=== PATIENT | female | born 1940 | race Caucasian/White ===

== ENCOUNTER → 2016-12-20 | Outpatient (CLI) | payer MEDICARE, OTHER ==
[~2016-12-20] MED LIST: ALBU17AE23 IH; ASP81TEC PO; BETA1BEA MC; BUDE90AE2 IH; BUTA-234 PO; C250T PO; CEFU250T PO; CETI10TA17 PO; CHOL200035 PO; CLARITIN PO; CLCX200C PO; CYCL5TAB PO; FOLI0.4T2 PO; IBP200T PO; LORA10CA PO; MNTL10T PO; MULT-608 PO; PARO10TA21 PO; PULMICORT; VITA400T9 PO; ZINC50TA49 PO; celebrex PO; paxil PO
--- OUTSIDE RECORDS SUMMARY | 2016-12-20 07:37 | XMS REPORT | Continuity of Care Document ---
Author Author [facility] Organization [facility] Address Unknown Phone Unavailable Care Team Providers Care Assistant Golf Coach Name Role Phone FILIPE CUEVAS MD PCP Insurance Providers Payer Name Policy Number Subscriber Name Relationship Wps Medicare [id number] Rhys Ayon 18 Self / Same As Patient [facility] [id number] Rhys Ayon 18 Self / Same As Patient Advance Directives Directive Response Recorded Date/Time Advance Directives Yes 03/15/16 8:15am Organ Donor Yes 03/15/16 8:15am Resuscitation Status Full Code 03/15/16 8:15am Chief Complaint and Reason for Visit Chief Complaint Chest Pain Reason for Visit Musculoskeletal chest pain [id number] Problems Active Problems Medical Problem Onset Date Status Epistaxis Unknown Acute Musculoskeletal chest pain Unknown Acute UTI (urinary tract infection) Unknown Acute Medications Current Home Medications Medication Dose Units Route Directions Days/Qty Instructions Start Date Montelukast Sodium 10 Mg 10 Mg Oral Bedtime 04/11/10 Aspirin 81 Mg 81 Mg Oral Daily 04/11/10 Multivitamins 1 Tab 1 Tab Oral Daily 04/11/10 Albuterol 17 Gm 2 Puff Inhalation As Needed 01/19/11 Celecoxib 200 Mg 1 Tab Oral Daily 01/19/11 Paroxetine Hcl 10 Mg 10 Mg Oral Daily 01/19/11 Cyclobenzaprine Hcl 5 Mg 1.5 Each Oral As Needed 03/18/13 Butalb/Acetaminophen/Caffeine (Fioricet) 1 Each 1 Each Oral Q6hr Prn 03/18/13 Zinc Amino Acid Chelate 50 Mg 50 Mg Oral 03/18/13 Vitamin E Mixed 400 Unit 400 Unit Oral 03/18/13 Ascorbic Acid 250 Mg 500 Mg Oral Daily 03/18/13 Beta-Carotene 1 Gm 1 Gm Miscell 03/18/13 Folic Acid 0.4 Mg 800 Each Oral Daily 03/18/13 Cholecalciferol (Vitamin D3) 2,000 Unit 2,000 Unit Oral 03/18/13 Cetirizine Hcl (Zyrtec) 10 Mg 10 Mg Oral Daily 03/18/13 Ibuprofen 200 Mg 200 Mg Oral Once 03/18/13 Cefuroxime Axetil 250 Mg 250 Mg Oral Twice A Day for Uti 14 03/15/16 Past Home Medications Medication Directions Ordered Status [Celebrex] , Oral Daily 04/11/10 Discontinued [Paxil] , Oral Daily 04/11/10 Discontinued [Pulmicort] , 04/11/10 Discontinued [Claritin] , Oral Daily 04/11/10 Discontinued Budesonide 90 Mcg Aer.pow.ba, 1 Puff Inhalation Bedtime 01/19/11 Discontinued Loratadine 10 Mg Capsule, 1 Tab Oral Daily 01/19/11 Discontinued Social History Social History Problem Response Recorded Date/Time Alcohol Use Denies Use 03/15/2016 8:15am Recreational Drug Use No 03/15/2016 8:15am Recent Foreign Travel No 03/15/2016 8:13am Recent Infectious Disease Exposure No 03/15/2016 8:13am Smoking Status Never a Smoker 03/15/2016 8:15am Query Response Start Date Stop Date Smoking Status Never a Smoker Hospital Discharge Instructions No hospital discharge instructions. Plan of Care Discharge Date 03/15/16 10:37am Disposition 01 HOME, SELF-CARE Condition at Discharge Stable Instructions/Education Provided Chest Pain (ED) Urinary Tract Infection in Women (DC) Prescriptions See Medication Section Referrals FILIPE CUEVAS MD - Primary Care Physician Functional Status No functional status results. Allergies, Adverse Reactions, Alerts Allergen Type Severity Reaction Status Last Updated clopidogrel bisulfate Adverse Reaction Intermediate SEVERE BLEEDING Active 01/19/11 Sulfa (Sulfonamide Antibiotics) ([id number]) Allergy Unknown Active 04/23 Horse/Equine Containing Products Allergy Unknown Active 07/22/09 Penicillin g Allergy Unknown Active 07/22/09 TB INGRIS TEST Allergy Unknown Active 03/15/16 Immunizations No immunization records. Vital Signs Acute Vital Signs Vital Response Date/Time Temperature (Fahrenheit) 98 degrees F (97.6 - 99.5) 03/15/2016 8:13am Temperature (Calculated Celsius) 36.6696 degrees C (36.4 - 37.5) 03/15/2016 8 :13am Temperature Source Tympanic 03/15/2016 8:13am Pulse Rate (adult) 81 bpm (60 - 90) 03/15/2016 8:13am Respiratory Rate 18 bpm (12 - 24) 03/15/2016 8:13am O2 Sat by Pulse Oximetry 94 % (88 - 100) 03/15/2016 8:13am Blood Pressure 166/73 mm Hg 03/15/2016 8:13am Blood Pressure Mean 104 mm Hg 03/15/2016 8:13am Pain Pain Intensity 6 03/15/2016 8:13am Height (Feet) 5 feet 03/15/2016 8:13am Height (Inches) 4 inches 03/15/2016 8:13am Height (Calculated Centimeters) 162.769541 cm 03/15/2016 8:13am Weight (Pounds) 169 pounds 03/15/2016 8:13am Weight (Calculated Kilograms) 76.681240 kilograms 03/15/2016 8:13am Height 5 ft 4 in Weight 169 lb Body Mass Index 29.0 kg/m^2 Results Laboratory Results Test Name Result Units Flags Reference Collection Date/Time Result Date/ Time Comments White Blood Count 12.6 10^3/uL H 4.3-11.0 03/15/2016 8:30am 03/15/2016 8: 38am Red Blood Count 4.23 10^6/uL L 4.35-5.85 03/15/2016 8:30am 03/15/2016 8: 38am Hemoglobin 13.6 G/DL 11.5-16.0 03/15/2016 8:30am 03/15/2016 8:38am Hematocrit 39 % 35-52 03/15/2016 8:30am 03/15/2016 8:38am Mean Corpuscular Volume 92 FL 80-99 03/15/2016 8:30am 03/15/2016 8: 38am Mean Corpuscular Hemoglobin 32 PG 25-34 03/15/2016 8:30am 03/15/2016 8: 38am Mean Corpuscular Hemoglobin Concent 35 G/DL 32-36 03/15/2016 8: 8:38am Red Cell Distribution Width 11.9 % 10.0-14.5 03/15/2016 8:2015 8:38am Platelet Count 350 10^3/uL 130-400 03/15/2016 8:03/15/2016 8:38am Mean Platelet Volume 9.7 FL 7.4-10.4 03/15/2016 8:03/15/2016 8: 38am Neutrophils (%) (Auto) 67 % 42-75 03/15/2016 8:03/15/2016 8:38am Lymphocytes (%) (Auto) 19 % 12-44 03/15/2016 8:03/15/2016 8:38am Monocytes (%) (Auto) 10 % 0-12 03/15/2016 8:03/15/2016 8:38am Eosinophils (%) (Auto) 4 % 0-10 03/15/2016 8:03/15/2016 8:38am Basophils (%) (Auto) 1 % 0-10 03/15/2016 8:03/15/2016 8:38am Neutrophils # (Auto) 8.5 X 10^3 H 1.8-7.8 03/15/2016 8:03/15/2016 8: 38am Lymphocytes # (Auto) 2.4 X 10^3 1.0-4.0 03/15/2016 8:03/15/2016 8: 38am Monocytes # (Auto) 1.2 X 10^3 H 0.0-1.0 03/15/2016 8:03/15/2016 8: 38am Eosinophils # (Auto) 0.5 10^3/uL H 0.0-0.3 03/15/2016 8:03/15/2016 8 :38am Basophils # (Auto) 0.1 10^3/uL 0.0-0.1 03/15/2016 8:03/15/2016 8: 38am D-Dimer 0.35 UG/ML 0.00-0.49 03/15/2016 8:03/15/2016 9:44am Urine Color YELLOW 03/15/2016 8:55am 03/15/2016 9:25am Urine Clarity SLIGHTLY CLOUDY 03/15/2016 8:55am 03/15/2016 9:25am Urine pH 7 5-9 03/15/2016 8:55am 03/15/2016 9:25am Urine Specific [place] 1.010 * 1.016-1.022 03/15/2016 8:55am 2015 9:25am Urine Protein NEGATIVE NEGATIVE 03/15/2016 8:55am 03/15/2016 9:25am Urine Glucose (UA) NEGATIVE NEGATIVE 03/15/2016 8:55am 03/15/2016 9: 25am Urine RBC (Auto) 1+ * NEGATIVE 03/15/2016 8:55am 03/15/2016 9:25am Urine Ketones NEGATIVE NEGATIVE 03/15/2016 8:55am 03/15/2016 9:25am Urine Nitrite NEGATIVE NEGATIVE 03/15/2016 8:55am 03/15/2016 9:25am Urine Bilirubin NEGATIVE NEGATIVE 03/15/2016 8:55am 03/15/2016 9: 25am Urine Urobilinogen NORMAL MG/DL NORMAL 03/15/2016 8:55am 03/15/2016 9: 25am Urine Leukocyte Esterase 3+ * NEGATIVE 03/15/2016 8:55am 03/15/2016 9: 25am Urine RBC RARE /HPF 03/15/2016 8:55am 03/15/2016 9:25am Urine WBC 5-10 /HPF * 03/15/2016 8:55am 03/15/2016 9:25am Urine Bacteria TRACE /HPF 03/15/2016 8:55am 03/15/2016 9:25am Urine Squamous Epithelial Cells 2-5 /HPF 03/15/2016 8:55am 2015 9:25am Urine Crystals NONE /LPF 03/15/2016 8:55am 03/15/2016 9:25am Urine Casts NONE /LPF 03/15/2016 8:55am 03/15/2016 9:25am Urine Mucus NEGATIVE /LPF 03/15/2016 8:55am 03/15/2016 9:25am Urine Culture Indicated YES 03/15/2016 8:55am 03/15/2016 9:25am Sodium Level 142 MMOL/L 135-145 03/15/2016 8:3003/15/2016 9:02am Potassium Level 4.4 MMOL/L 3.6-5.0 03/15/2016 8:3003/15/2016 9:02am Chloride Level 107 MMOL/L 98-107 03/15/2016 8:3003/15/2016 9:02am Carbon Dioxide Level 24 MMOL/L 21-32 03/15/2016 8:3003/15/2016 9: 02am Anion Gap 11 MMOL/L 5-14 03/15/2016 8:3003/15/2016 9:02am Blood Urea Nitrogen 13 MG/DL 7-18 03/15/2016 8:3003/15/2016 9:02am Creatinine 0.75 MG/DL 0.60-1.30 03/15/2016 8:03/15/2016 9:02am BUN/Creatinine Ratio 17 03/15/2016 8:3003/15/2016 9:02am Estimat Glomerular Filtration Rate > 60 03/15/2016 8:2015 9:02am GFR INTERPRETIVE DATA UNITS FOR ESTIMATED GFR (eGFR): mL/min/1.73 M2 REFERENCE RANGE FOR ESTIMATED GFR (eGFR) eGFR NORMAL eGFR >60 MODERATELY DECREASED eGFR 30-59 SEVERLY DECREASED eGFR 15-29 KIDNEY FAILURE <15 (OR DIALYSIS) Glucose Level 104 MG/DL 70-105 03/15/2016 8:3003/15/2016 9:02am Calcium Level 9.4 MG/DL 8.5-10.1 03/15/2016 8:03/15/2016 9:02am Magnesium Level 2.5 MG/DL H 1.8-2.4 03/15/2016 8:3003/15/2016 9:02am Total Bilirubin 0.5 MG/DL 0.1-1.0 03/15/2016 8:3003/15/2016 9:02am Alkaline Phosphatase 103 U/L 40-136 03/15/2016 8:3003/15/2016 9: 02am Aspartate Amino Transf (AST/SGOT) 21 U/L 5-34 03/15/2016 8:302015 9:02am Alanine Aminotransferase (ALT/SGPT) 19 U/L 0-55 03/15/2016 8:3003/15 9:02am Troponin I < 0.30 NG/ML <0.30 03/15/2016 8:30am 03/15/2016 9:07am B-Type Natriuretic Peptide < 10.0 PG/ML <100.0 03/15/2016 8:30am 2015 9:11am Total Protein 7.0 G/DL 6.4-8.2 03/15/2016 8:30am 03/15/2016 9:02am Albumin 4.4 G/DL 3.2-4.5 03/15/2016 8:30am 03/15/2016 9:02am Lipase 39 U/L 8-78 03/15/2016 8:30am 03/15/2016 9:02am Procedures Procedure Status Date Provider(s) Tracing only of electrocardiogram Active 03/15/16 DARRELL ASCENCIO DO Encounters Encounter Location Arrival/Admit Date Discharge/Depart Date Attending Provider Departed Emergency Room [facility] 03/15/16 8:04am 03/15 10:37am DARRELL ASCENCIO DO Recent Diagnosis
--- NOTE | 2016-12-22 08:27 | ECHOCARDIOGRAPHY REPORT ---
PROCEDURE PHYSICIAN: BASSEM ONEAL DATE OF PROCEDURE: 12/20/2016 TWO DIMENSIONAL ECHOCARDIOGRAM REPORT PRIMARY PHYSICIAN: Dr. Rosenberg OTHER PHYSICIAN: REFERRING PHYSICIAN: ORDERING PHYSICIAN: Dr. Oneal INDICATION FOR THE PROCEDURE: Shortness of breath. MEASUREMENTS DERIVED VALUES LV DIAMETER (LAX) NORMALS NORMALS Diastolic 4.4 (3.6-5.2) Eject. Fract. (60%+/-6%) Systolic (2.3-3.9) Diastolic Vol. % Shortening (0.22-0.42) Systolic Vol. Aortic Root 2.6 IVS THICKNESS Diastolic 1.1 (0.6-1.1) LVPW THICKNESS Diastolic 1.1 (0.6-1.1) LA DIAMETER Systolic 3.4 (2.1-3.7) DESCRIPTION: Two-dimensional echocardiography shows normal global left ventricular systolic function with normal regional wall motion. Aortic, mitral and tricuspid valve leaflets show good leaflet excursion. There is no significant pericardial effusion. There is mild mitral annular calcification. Doppler imaging indicates trivial tricuspid regurgitation. Pulmonary artery systolic pressure is estimated to be approximately 30 mmHg. There is no Doppler evidence of significant valvular stenosis. Mitral inflow is consistent with grade I diastolic dysfunction of the left ventricle. There is no evidence of significant intracardiac shunt on this transthoracic echocardiographic study. Inferior vena cava does not appear to be significantly dilated and does seem to have inspiratory collapse. CONCLUSIONS: 1. Normal global left ventricular systolic function with an ejection fraction of approximately 60%. 2. Mild mitral annular calcification without evidence of significant valvular stenosis. 3. Trivial tricuspid regurgitation. 4. Pulmonary artery systolic pressure is estimated to be approximately 30 mmHg. Job ID: [id number] Dictated Date: 12/21/2016 17:39:51 Poster Date: 12/22/2016 08:23:48 / jake
== END ==
LOC: CARD 07:33
PROVIDERS: ATTEND Internal Medicine Cardiovascular Disease
DX: I70.213 Atherosclerosis of native arteries of extremities with intermittent claudication, bilateral legs (principal); J43.8 Other emphysema; R06.02 Shortness of breath
CPT/HCPCS: 93306; 93923

== ENCOUNTER → 2016-12-22 | Outpatient (CLI) | payer MEDICARE, OTHER ==
[~2016-12-22] VITALS: Ht 160 cm; Wt 79.4 kg
[~2016-12-22] MED LIST changes: +CATHETER FLUSH 10 ML SYR IV PRN; +REGADENOSON 0.4 MG/5 ML SYR (LEXISCAN) IV ONE
--- OUTSIDE RECORDS SUMMARY | 2016-12-22 07:34 | XMS REPORT | Continuity of Care Document ---
Author Author [facility] Organization [facility] Address Unknown Phone Unavailable Care Team Providers Care Battery Container Finishing Hand Name Role Phone FILIPE CUEVAS MD PCP Insurance Providers Payer Name Policy Number Subscriber Name Relationship Wps Medicare [id number] Rhys Ayon 18 Self / Same As Patient [facility] [id number] Rhys Ayon 18 Self / Same As Patient Advance Directives Directive Response Recorded Date/Time Advance Directives Yes 03/15/16 8:15am Organ Donor Yes 03/15/16 8:15am Resuscitation Status Full Code 03/15/16 8:15am Chief Complaint and Reason for Visit Chief Complaint Chest Pain Reason for Visit Musculoskeletal chest pain [id number] Problems Active Problems Medical Problem Onset Date [...] SEVERE BLEEDING Active 01/19/11 Sulfa (Sulfonamide Antibiotics) ([id number]) Allergy Unknown Active 04/23 Horse/Equine Containing Products [...] 4 inches 03/15/2016 8:13am Height (Calculated Centimeters) 162.667844 cm 03/15/2016 8:13am Weight (Pounds) 169 pounds 03/15/2016 8:13am Weight (Calculated Kilograms) 76.220181 kilograms 03/15/2016 8:13am Height 5 ft 4 [...] 5-9 03/15/2016 8:55am 03/15/2016 9:25am Urine Specific [place] 1.010 * 1.016-1.022 03/15/2016 8:55am 2015 9:25am [...] Date Attending Provider Departed Emergency Room [facility] 03/15/16 8:04am 03/15 10:37am DARRELL ASCENCIO DO Recent Diagnosis
[2016-12-22 08:57] VITALS: BP 152/80
--- NOTE | 2016-12-22 12:32 | STRESS TEST ---
PROCEDURE PHYSICIAN: BASSEM ONEAL RESTING AND POST REGADENOSON TECHNETIUM 99M TETROFOSMIN SPECT CT IMAGING DATE OF PROCEDURE: 12/22/2016 ORDERING PHYSICIAN: Dr. Oneal CLINICAL DIAGNOSIS: Shortness of breath, leg claudication. Baseline images were carried out after injection of 10.23 mCi of technetium 99m tetrofosmin. This was followed by 0.4 mg of regadenoson and 30.7 mCi technetium 99m tetrofosmin for stress imaging. The electrocardiogram showed sinus rhythm at baseline and it did not change significantly with the regadenoson infusion. Review of images at rest and following stress, does not indicate any significant perfusion defects consistent with any significant myocardial ischemia or infarction. Gated images show normal global left ventricular function with normal regional wall motion. Left ventricular ejection fraction is calculated to be 67%. Left end-diastolic volume is 31 mL. TID is absent (0.99). CONCLUSION: 1. No evidence of any significant myocardial ischemia or infarction on this study, 2. Normal regional wall motion. 3. Normal global left ventricular systolic function with a calculated ejection fraction of 67%. 4. Normal left ventricular cavity size. Job ID: [id number] Dictated Date: 12/22/2016 11:16:15 Petrol Tanker Driver Date: 12/22/2016 12:26:29 / braxton
== END ==
LOC: CARD 07:30
PROVIDERS: ATTEND Internal Medicine Cardiovascular Disease
DX: J43.8 Other emphysema (principal); R26.89 Other abnormalities of gait and mobility
CPT/HCPCS: 78452; 93017

== ENCOUNTER → 2017-07-24 | Outpatient (CLI) | payer MEDICARE ==
[~2017-07-24] MED LIST changes: -CATHETER FLUSH 10 ML SYR IV PRN; -REGADENOSON 0.4 MG/5 ML SYR (LEXISCAN) IV ONE
--- NOTE | 2017-07-24 12:37 | Diagnostic Imaging Report ---
PROCEDURE: MRI lumbar spine. TECHNIQUE: Multiplanar, multisequence MRI of the lumbar spine was performed without contrast. INDICATION: Chronic back pain. FINDINGS: There is right convexity scoliosis of the lumbar spine. The alignment of the posterior spinal line is satisfactory. The vertebral body heights are preserved. There is disc desiccation at multiple levels with significant disc height loss noted along the left side aspect of the discs in the mid lumbar spine along the concavity of the scoliosis. The scoliotic curvature is centered around L2/L3 level. The cauda equina and conus medullaris appear grossly unremarkable. Mild degenerative signal and endplate edema are noted, particularly prominent at L3/L4 level. T12/L1: No disc herniation. No spinal canal or foraminal stenosis. L1/L2: There is mild diffuse disc bulge and mild facet hypertrophy noted. No spinal canal or foraminal stenosis. L2/L3: There is a diffuse disc bulge asymmetric to the left. There is mild facet hypertrophy. No central canal stenosis. There is mild left lateral recess stenosis. No lateral recess stenosis on the right side. The foramina demonstrate mild to moderate stenosis on the left and no significant stenosis on the right side. L3/L4: There is a diffuse disc bulge asymmetric to the left. Bilateral moderate to severe facet arthropathy is seen. There is central canal stenosis of moderate to severe degree reducing the AP dimension of the canal to 6.6 mm. There is lateral recess stenosis of moderate to severe degree on the left and mild degree on the right side. The foramina demonstrate moderate to severe stenosis on the left and mild stenosis on the right side. L4/L5: There is moderate to severe spinal canal stenosis reducing the AP dimension of the canal to 5.4 mm related to a diffuse disc bulge and bilateral severe facet arthropathy. There is also bilateral moderate to severe lateral recess stenosis. The foramina demonstrate mild to moderate stenosis on the left and severe stenosis on the right side. L5/S1: There is diffuse disc bulge and bilateral moderate to severe facet arthropathy. No central canal stenosis. There is lateral recess stenosis, mild on the left and moderate to severe on the right side encroaching upon the descending right S1 nerve roots. The foramina demonstrate no stenosis on the left and moderate stenosis on the right side. IMPRESSION: Prominent right convexity scoliosis of the lumbar spine with associated mid to lower disc and facet degenerative changes. There is prominent spinal canal stenosis at L3/L4 and L4/L5 levels. There is also multilevel foraminal stenosis. Dictated by: Dictated on workstation # [id number]
== END ==
LOC: RAD 09:08
PROVIDERS: ATTEND Family Medicine
DX: M41.9 Scoliosis, unspecified (principal); M48.061 Spinal stenosis, lumbar region without neurogenic claudication
CPT/HCPCS: 72148

== ENCOUNTER → 2018-04-30 | Outpatient (CLI) | payer MEDICARE, BC | LOC: RAD 09:37 | PROVIDERS: ATTEND Orthopaedic Surgery Orthopaedic Surgery of the Spine | DX: M54.2 Cervicalgia (principal); M54.6 Pain in thoracic spine; Z53.8 Procedure and treatment not carried out for other reasons ==

== ENCOUNTER → 2018-05-17 | Outpatient (CLI) | payer MEDICARE, BC ==
--- NOTE | 2018-05-17 13:26 | Diagnostic Imaging Report ---
EXAMINATION: DEXA study. INDICATION: Post menopausal Correlation study: 12/23/2010 FINDINGS: Bone mineral density of the lumbar spine, L2-L4 is 1.064 g/cm2 with a T-score of 81.1. This is in the OSTEOPENIA range. Bone mineral density of the left femur is 0.951 g/cm2 with a T-score of -0.4. This is in the NORMAL range. Bone mineral density of the right femur is 0.830 g/cm2 with a T-score of -1.4. This is in the OSTEOPENIA range. Total mean density of the hips is 0.891 g/cm2 with a T-score of -0.9. IMPRESSION: This scan is considered OSTEOPENIA according to the World Health Organization guidelines. The overall density appears slightly diminished from approximately 6% from prior study. Dictated by: Dictated on workstation # [id number]
== END ==
LOC: RAD 10:01
PROVIDERS: ATTEND Physician Assistant
DX: M81.0 Age-related osteoporosis without current pathological fracture (principal)
CPT/HCPCS: 77080

== ENCOUNTER → 2018-06-26 | Outpatient (CLI) | payer MEDICARE, BC ==
--- NOTE | 2018-06-26 18:24 | Diagnostic Imaging Report ---
INDICATION: Elevated PTH. TECHNIQUE: Patient was administered 19.9 mCi technetium 99m sestamibi and imaging over the neck and upper chest was performed at 20 minutes and [address] was also performed. FINDINGS: Physiologic activity within the salivary glands is seen. There is normal uptake of activity by both lobes of the thyroid gland on the early images. There appears to be washout of activity from the thyroid on the delayed images. No focus of tracer accumulation is seen at the thyroid bed in the expected location of the parathyroid glands. No definite focus in the upper chest is seen to suggest activity within an ectopic parathyroid identified. IMPRESSION: Unremarkable parathyroid scan with SPECT CT. There are no findings to suggest parathyroid adenoma. Dictated by: Dictated on workstation # [id number]
== END ==
LOC: CARD 12:14
PROVIDERS: ATTEND Family Medicine
DX: R94.6 Abnormal results of thyroid function studies (principal)
CPT/HCPCS: 78072

== ENCOUNTER → 2018-08-08 | Outpatient (CLI) | payer MEDICARE, BC ==
--- NOTE | 2018-08-08 12:17 | Diagnostic Imaging Report ---
PROCEDURE: US right lower extremity venous. TECHNIQUE: Multiple real-time grayscale images were obtained over the right lower extremity in various projections. Additional duplex Doppler and color Doppler images were also obtained. INDICATION: Right leg pain and swelling. COMPARISON: None. TECHNIQUE: The right lower extremity deep venous system was interrogated from the common femoral vein through the popliteal vein. These images were assessed for grayscale appearance, color and spectral Doppler blood flow, compression, and augmentation. FINDINGS: There is no evidence of intraluminal filling defect. Normal compression and augmentation is noted throughout. Soft tissues are unremarkable. IMPRESSION: 1. No sonographic evidence of deep venous thrombosis in the right lower extremity. Dictated by: Dictated on workstation # [id number]
== END ==
LOC: RAD 11:18
PROVIDERS: ATTEND Nurse Practitioner Family
DX: M79.89 Other specified soft tissue disorders (principal); I10 Essential (primary) hypertension; E78.5 Hyperlipidemia, unspecified; G47.39 Other sleep apnea

== ENCOUNTER 2018-11-02 07:35 | Emergency (ER) | payer MEDICARE, BC ==
[~2018-11-02] VITALS: Ht 157.5 cm; Wt 74.8 kg
--- NOTE | 2018-11-02 08:04 | ED Neurological Problem ---
General Stated Complaint: FACIAL DROOPING/NUMBNESS Source: patient, family Exam Limitations: no limitations History of Present Illness Date Seen by Provider: Nov 02, 2018 Time Seen by Provider: 07:59 Initial Comments This 78-year-old white female presents with right-sided facial weakness that began last night. When the patient went to bed she noted numbness to her lips as if she had been to the dentist. Throughout the night when the patient attempted to drink water she dribbled out the right side of her mouth. This morning the patient noted right sided facial weakness with inability to fully close her eye or to smile fully. She denies associated numbness or weakness in her right arm or leg. The patient has had no associated fever, chills, headache, blurred vision, difficulty swallowing, cough, shortness of breath, palpitations or chest pain, associated nausea vomiting or diarrhea. Past medical history includes a previous questionable TIA to the left arm and leg which lasted 10-15 minutes. The patient has noted a painful right ear for the last several days. When examined by her doctor several days ago no findings were identified. My NIHSS score at the bedside identified decreased sensation and motor to the right side of the face but no other significant findings (7:45 am). Allergies and Home Medications Allergies Coded Allergies: Horse/Equine Containing Products (Verified Allergy, Unknown, 07/22/09) Sulfa (Sulfonamide Antibiotics) (Verified Allergy, Unknown, 07/22/09) penicillin G (Verified Allergy, Unknown, 07/22/09) clopidogrel bisulfate (Unverified Adverse Reaction, Intermediate, SEVERE BLEEDING, 01/19/11) Uncoded Allergies: TB INGRIS TEST (Allergy, Unknown, 03/15/16) Home Medications Albuterol 17 Gm Aerosol, 2 PUFF IH PRN, (Reported) Ascorbic Acid 250 Mg Tab, 500 MG PO DAILY, (Reported) Aspirin 81 Mg Tabec, 81 MG PO DAILY, (Reported) Butalb/Acetaminophen/Caffeine 1 Each Tablet, 1 EACH PO Q6HR PRN, (Reported) Cefuroxime Axetil 250 Mg Tablet, 250 MG PO BID Prescribed by: DARRELL ASCENCIO on 03/15/16 1021 Celecoxib 200 Mg Capsule, 1 TAB PO DAILY, (Reported) Cetirizine Hcl 10 Mg Tablet, 10 MG PO DAILY, (Reported) Cyclobenzaprine Hcl 5 Mg Tablet, 1.5 EACH PO PRN, (Reported) Folic Acid 0.4 Mg Tablet, 800 EACH PO DAILY, (Reported) Ibuprofen 200 Mg Tab, 200 MG PO ONCE, (Reported) Montelukast Sodium 10 Mg Tab, 10 MG PO HS, (Reported) Multivitamins 1 Tab Tablet, 1 TAB PO DAILY, (Reported) Paroxetine Hcl 10 Mg Tablet, 10 MG PO DAILY, (Reported) Patient Home Medication List Home Medication List Reviewed: Yes Review of Systems Review of Systems Constitutional: No chills, No dizziness, No fever, No weakness Eyes: Denies Blurred Vision Ears, Nose, Mouth, Throat: ear pain (right ear) Respiratory: No cough, No short of breath Gastrointestinal: No abdominal pain, No nausea, No vomiting Genitourinary: No dysuria, No frequency : No Musculoskeletal: No back pain; muscle weakness (to the right side of the face) Skin: other (there is erythema and swelling noted to the right external ear) Psychiatric/Neurological: No Symptoms Reported Endocrine: No Symptoms Reported Hematologic/Lymphatic: No Symptoms Reported Past Ukvejhy-Rtlrlo-Vcopmo Hx Past Med/Social Hx: Reviewed Nursing Past Med/Soc Hx Patient Social History Recent Foreign Travel: No Contact w/Someone Who Travel: No Past Medical History COPD Hypertension Reproductive Disorders: Yes (HX.FIBROIDS-HYSTERECTOMY) Family Medical History No Pertinent Family Hx Physical Exam Vital Signs Vital Signs - First Documented 11/02/18 07:38 Temp 99.9 Pulse 86 Resp 16 B/P (MAP) 173/98 (123) Pulse Ox 95 O2 Delivery Room Air Capillary Refill : Height, Weight, BMI Height: 5'3.00" Weight: 175lbs. 0.0oz. 79.549500tm; 31.0 BMI Method:Stated General Appearance: WD/WN, no apparent distress HEENT: No photophobia; other (right-sided facial weakness and numbness. There is erythema and swelling to the right external ear. The right TM was not fully visualized but appeared to be normal.) Neck: non-tender, full range of motion, supple Respiratory: lungs clear, normal breath sounds Cardiovascular: regular rate, rhythm Gastrointestinal: normal bowel sounds, non tender, soft Back: normal inspection Extremities: normal range of motion, non-tender, normal inspection, no pedal edema Neurologic/Psychiatric: other (right sided facial weakness and numbness.) Skin: other (erythema to the right external ear.) Stroke Onset of Symptoms Date of Onset of Symptoms: Nov 01, 2018 Time of Symptom Onset: 21:30 Onset of Symptoms: Yes NIH Stroke Scale Assessment Select: Initial Level of Consciousness: 0=Alert (0), Level of Consciousness- Questions: 0=Answers both month/age (0), LOC Commands: 0=Performs both tasks (0) , Gaze: Normal (0), Visual Varela: 0=No visual loss (0), Facial Movement ( Facial Paresis): 2=Partial paralysis (2), Motor Function-Arms Right: 0=No drift (0), Motor Function-Arms Left: 0=No drift (0), Motor Function-Legs Right: 0=No drift (0), Motor Function-Legs Left: 0=No drift (0), Limb Ataxia: 0=Absent (0), Sensory: 1=Mild to Moderate loss (1), Best Language: 1=Mild to moderat aphasia ( 1), Dysarthria: 0=Normal (0), Extinction & Inattention: 0=No abnormality (0), Total: 4 IV - TPa Received IV - TPa Procedure Performed?: No Progress/Results/Core Measures Results/Orders Lab Results Laboratory Tests Test 11/02/18 07:45 11/02/18 07:56 11/02/18 08:50 Range/Units White Blood Count 8.5 4.3-11.0 10^3/uL Red Blood Count 3.98 L 4.35-5.85 10^6/uL Hemoglobin 12.8 11.5-16.0 G/DL Hematocrit 37 35-52 % Mean Corpuscular Volume 94 80-99 FL Mean Corpuscular Hemoglobin 32 25-34 PG Mean Corpuscular Hemoglobin Concent 34 32-36 G/DL Red Cell Distribution Width 12.2 10.0-14.5 % Platelet Count 398 130-400 10^3/uL Mean Platelet Volume 9.4 7.4-10.4 FL Neutrophils (%) (Auto) 46 42-75 % Lymphocytes (%) (Auto) 37 12-44 % Monocytes (%) (Auto) 12 0-12 % Eosinophils (%) (Auto) 4 0-10 % Basophils (%) (Auto) 1 0-10 % Neutrophils # (Auto) 3.9 1.8-7.8 X 10^3 Lymphocytes # (Auto) 3.2 1.0-4.0 X 10^3 Monocytes # (Auto) 1.0 0.0-1.0 X 10^3 Eosinophils # (Auto) 0.3 0.0-0.3 10^3/uL Basophils # (Auto) 0.0 0.0-0.1 10^3/uL Prothrombin Time 12.8 12.2-14.7 SEC INR Comment 1.0 0.8-1.4 Activated Partial Thromboplast Time 37 H 24-35 SEC D-Dimer 0.67 H 0.00-0.49 UG/ML Sodium Level 139 135-145 MMOL/L Potassium Level 3.8 3.6-5.0 MMOL/L Chloride Level 103 98-107 MMOL/L Carbon Dioxide Level 24 21-32 MMOL/L Anion Gap 12 5-14 MMOL/L Blood Urea Nitrogen 10 7-18 MG/DL Creatinine 0.72 0.60-1.30 MG/DL Estimat Glomerular Filtration Rate > 60 BUN/Creatinine Ratio 14 Glucose Level 102 70-105 MG/DL Calcium Level 9.7 8.5-10.1 MG/DL Corrected Calcium 9.4 8.5-10.1 MG/DL Total Bilirubin 0.5 0.1-1.0 MG/DL Aspartate Amino Transf (AST/SGOT) 27 5-34 U/L Alanine Aminotransferase (ALT/SGPT) 23 0-55 U/L Alkaline Phosphatase 105 40-136 U/L Troponin I < 0.028 <0.028 NG/ML Total Protein 7.5 6.4-8.2 GM/DL Albumin 4.4 3.2-4.5 GM/DL Glucometer 106 70-110 MG/DL Urine Color YELLOW Urine Clarity CLEAR Urine pH 7 5-9 Urine Specific Snover 1.010 L 1.016-1.022 Urine Protein NEGATIVE NEGATIVE Urine Glucose (UA) NEGATIVE NEGATIVE Urine Ketones NEGATIVE NEGATIVE Urine Nitrite NEGATIVE NEGATIVE Urine Bilirubin NEGATIVE NEGATIVE Urine Urobilinogen NORMAL NORMAL MG/DL Urine Leukocyte Esterase 1+ H NEGATIVE Urine RBC (Auto) 2+ H NEGATIVE Urine RBC 2-5 H /HPF Urine WBC RARE /HPF Urine Squamous Epithelial Cells 0-2 /HPF Urine Crystals NONE /LPF Urine Bacteria NEGATIVE /HPF Urine Casts NONE /LPF Urine Mucus NEGATIVE /LPF Urine Culture Indicated NO My Orders Orders - ROSLYN HUNTER MD Cbc With Automated Diff (11/02/18 07:55) Protime With Inr (11/02/18 07:55) Partial Thromboplastin Time (11/02/18 07:55) Comprehensive Metabolic Panel (11/02/18 07:55) Fibrin Degradation Products (11/02/18 07:55) Troponin I (11/02/18 07:55) Ua Culture If Indicated (11/02/18 07:55) Chest 1 View, Ap/Pa Only (11/02/18 07:55) Ekg Tracing (11/02/18 07:55) Nothing By Mouth (11/02/18 Lunch) Accucheck Stat ONCE (11/02/18 07:55) Saline Lock/Iv-Start (11/02/18 07:55) Saline Lock/Iv-Start (11/02/18 07:55) Vital Signs Stroke Patient Q15M (11/02/18 07:55) Ct Head Wo-R/O Stroke (11/02/18 07:55) O2 (11/02/18 07:55) Intake & Output 06,14,22 (11/02/18 07:55) Monitor-Rhythm Ecg Trace Only (11/02/18 07:55) Dysphagia Screening Tool (11/02/18 07:55) Lipid Panel (11/03/18 06:00) Vital Signs/I&O 11/02/18 07:38 Temp 99.9 Pulse 86 Resp 16 B/P (MAP) 173/98 (123) Pulse Ox 95 O2 Delivery Room Air Progress Progress Note : Time: 09:27 Progress Note The patient's laboratory and radiographic evaluation were essentially unremarkable. 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 Patient will receive valacyclovir thousand milligrams every 12 hours twice daily for 7 days. Most recent recommendations appear to be steroids as well. I prescribed 40 mg daily of prednisone for a week. I'm going to have the patient return to the emergency department tomorrow so that I can simply make certain that she has not progressed and is doing well. I asked that the patient use artificial tears and her daughter, the nurse, we' ll patch the eye at night. I asked that they follow-up with Dr. Rosenberg next week. They were invited to return to emergency department if any further problems or questions. 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 Decision time for Depature: 09:30 Referrals: FILIPE ROSENBERG MD (PCP/Family) Primary Care Physician Patient Instructions: Yen (DC) Add. Discharge Instructions: Return for recheck in the emergency department tomorrow with me. Antiviral and steroid medications as prescribed. Return if any problems or questions. Follow -up with Dr. Rosenberg early next week. ROSLYN HUNTER MD Nov 02, 2018 08:04
[2018-11-02 08:05] LABS: BASOPHILS % (AUTO) 1 % (0-10); EOSINOPHILS # (AUTO) 0.3 10^3/uL (0.0-0.3); EOSINOPHILS % (AUTO) 4 % (0-10); HEMATOCRIT 37 % (35-52); HEMOGLOBIN 12.8 G/DL (11.5-16.0); LYMPHOCYTES # (AUTO) 3.2 X 10^3 (1.0-4.0); LYMPHOCYTES % (AUTO) 37 % (12-44); MEAN CORPUSCULAR HEMOGLOBIN 32 PG (25-34); MEAN CORPUSCULAR HGB CONC 34 G/DL (32-36); MEAN CORPUSCULAR VOLUME 94 FL (80-99); MEAN PLATELET VOLUME 9.4 FL (7.4-10.4); MONOCYTES % (AUTO) 12 % (0-12); NEUTROPHILS # (AUTO) 3.9 X 10^3 (1.8-7.8); NEUTROPHILS % (AUTO) 46 % (42-75); PLATELET COUNT 398 10^3/uL (130-400); RED BLOOD COUNT 3.98 10^6/uL (4.35-5.85); RED CELL DISTRIBUTION WIDTH 12.2 % (10.0-14.5); WHITE BLOOD COUNT 8.5 10^3/uL (4.3-11.0)
--- NOTE | 2018-11-02 08:18 | Diagnostic Imaging Report ---
INDICATION: Right-sided facial weakness and droop Noncontrast brain CT performed and compared to 01/19/2011 There are mild diffuse atrophic changes. There are mild low-density changes in the deep white matter compatible with chronic ischemic change. There is no acute hemorrhage or mass effect or midline shift. No overt acute parenchymal abnormality in the brain is seen. Ventricles are normal in size and position. Calvarial windows appear unremarkable. There is partial opacification of the right sphenoid sinus. IMPRESSION: Mild atrophic changes and chronic changes in deep white matter. No acute hemorrhage or mass effect or acute intracranial finding. Consider MRI if symptoms persist. There is opacification of the right sphenoid sinus incidentally noted. Dictated by: Dictated on workstation # [id number]
--- NOTE | 2018-11-02 08:19 | Diagnostic Imaging Report ---
INDICATION: Stroke Frontal chest obtained at 8:07 hours am, and compared with 03/15/2016. Heart is borderline enlarged. The mediastinal silhouette was unremarkable. The lungs show no focal infiltrate. There is no pneumothorax or pleural fluid. IMPRESSION: Borderline cardiomegaly. No acute process in the chest. Dictated by: Dictated on workstation # [id number]
[2018-11-02 08:24] LABS: FIBRIN DEGRADATION PRODUCTS 0.67 UG/ML (0.00-0.49); PROTHROMBIN TIME PATIENT 12.8 SEC (12.2-14.7)
[2018-11-02 08:28] LABS: ALANINE AMINOTRANSFERASE 23 U/L (0-55); ALBUMIN 4.4 GM/DL (3.2-4.5); ALKALINE PHOSPHATASE 105 U/L (40-136); BILIRUBIN,TOTAL 0.5 MG/DL (0.1-1.0); BUN/CREATININE RATIO 14; CALCIUM 9.7 MG/DL (8.5-10.1); CARBON DIOXIDE 24 MMOL/L (21-32); CHLORIDE 103 MMOL/L (98-107); CREATININE SERUM 0.72 MG/DL (0.60-1.30); GFR ESTIMATED > 60; GLUCOSE 102 MG/DL (70-105); POTASSIUM 3.8 MMOL/L (3.6-5.0); SODIUM 139 MMOL/L (135-145); TOTAL PROTEIN 7.5 GM/DL (6.4-8.2)
[2018-11-02 09:14] LABS: BILIRUBIN,URINE NEGATIVE (NEGATIVE); CLARITY,URINE CLEAR; COLOR,URINE YELLOW; GLUCOSE, URINE (UA) NEGATIVE (NEGATIVE); KETONES,URINE NEGATIVE (NEGATIVE); LEUKOCYTE ESTERASE ,URINE 1+ (NEGATIVE); NITRITE,URINE NEGATIVE (NEGATIVE); PH,URINE 7 (5-9); PROTEIN,URINE NEGATIVE (NEGATIVE); UROBILINOGEN,URINE NORMAL (NORMAL)
[2018-11-02 09:24] LABS: BACTERIA,URINE NEGATIVE /HPF; SQUAMOUS EPITHELIAL CELL,UR 0-2 /HPF; WBC,URINE RARE /HPF
[2018-11-02 09:50] VITALS: BP 154/78
== END 2018-11-02 09:50 | disposition home or self-care (01) ==
LOC: EDUNIT# 07:35 → ER 07:36
DX: G51.0 Bell's palsy (principal); B02.9 Zoster without complications; J44.9 Chronic obstructive pulmonary disease, unspecified; I10 Essential (primary) hypertension; Z90.710 Acquired absence of both cervix and uterus; Z88.2 Allergy status to sulfonamides; Z88.0 Allergy status to penicillin; Z88.8 Allergy status to other drugs, medicaments and biological substances; Z79.82 Long term (current) use of aspirin; Z79.51 Long term (current) use of inhaled steroids
CPT/HCPCS: 36415; 70450; 71045; 80053; 81000; 82962; 84484; 85025; 85379; 85610; 85730; 93041

== ENCOUNTER 2018-11-03 10:32 | Emergency (ER) | payer MEDICARE, BC | END 2018-11-03 11:08 | disposition home or self-care (01) | LOC: ER 10:32 ==

== ENCOUNTER → 2018-11-26 | Outpatient (CLI) | payer MEDICARE, BC ==
--- NOTE | 2018-11-26 12:42 | Diagnostic Imaging Report ---
Indication: Routine screening. Comparison is made with prior mammogram from 08/18/2017 and 04/28/2015. 2-D and 3-D bilateral screening mammography was performed with CAD. Scattered fibroglandular densities are identified bilaterally. The parenchymal pattern is stable. No dominant mass or malignant-appearing microcalcifications are seen. The axilla are unremarkable. Impression: BI-RADS category 1 No mammographic features suspicious for malignancy are identified. ACR BI-RADS Category 1: Negative. Result letter will be mailed to the patient. Note: At least 10% of breast cancer is not imaged by mammography. Dictated by: Dictated on workstation # [id number]
== END ==
LOC: RAD 08:31
PROVIDERS: ATTEND Nurse Practitioner Family
DX: Z12.31 Encounter for screening mammogram for malignant neoplasm of breast (principal)
CPT/HCPCS: 77067

== ENCOUNTER 2018-11-30 18:59 | Emergency (ER) | payer MEDICARE, BC ==
[~2018-11-30] VITALS: Ht 160 cm; Wt 76.7 kg
--- OUTSIDE RECORDS SUMMARY | 2018-11-30 19:10 | XMS REPORT | CCD ---
Author Author [facility] Address [address] [place] [address] Phone Care Team Providers Care Lighting Equipment Operator Name Role Phone PP Unavailable CCM Unavailable Summary Purpose Interface Exchange Insurance Providers Payer name Policy type / Coverage type Covered constitution party ID Effective Begin Date Effective End Date WPS Medicare Part B Medicare Part B [id number] Unknown [facility] Medicare Part B [id number] Unknown Family history Daughter Diagnosis Age At Onset Factor V Unknown Father Diagnosis Age At Onset Stroke Unknown Sister Diagnosis Age At Onset No Family Disease Entered N/A Runs in the family Diagnosis Age At Onset Diabetes Unknown Mother Diagnosis Age At Onset No Family Disease Entered N/A granddaughter Diagnosis Age At Onset Bleeding disorders Unknown Social History Social History Element Codes Description Effective Dates Employment Unknown 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 Unknown Has never used illegal drugs 06/26/2011 Allergies, Adverse Reactions, Alerts Substance Reaction Codes Entered Date Inactivated Date Status Seasonal Unknown 06/27/2011 No Inactive Date Active Erythromycin RxNorm: 4053 01/02/2017 No Inactive Date Active * NO KNOWN FOOD ALLERGIES Unknown 06/27/2011 No Inactive Date Active clindamycin HCl diarrhea RxNorm: 2582 12/05/2013 No Inactive Date Active HORSE/EQUINE PRODUCT DERIVATIVES Unknown 01/02/2017 No Inactive Date Active PENICILLINS Unknown 06/26/2011 No Inactive Date Active [id number]-FRD-[id number] REDUCTASE INHIBITORS Unknown 06/26/2011 No Inactive Date Active SULFA (SULFONAMIDES) Unknown 01/02/2017 No Inactive Date Active Past Medical History Illness Codes Condition Status Onset Date Resolved Date Postherpetic trigeminal neuralgia ICD-9: 053.12 ICD-10: B02.22 Active 11/07/2018 Unknown Chronic obstructive pulmonary disease with (acute) exacerbation ICD-9: 491.21 ICD-10: J44.1 Active 11/07/2018 Unknown Chronic frontal sinusitis ICD-9: 478.19 ICD-10: J32.1 Active 09/04/2018 Unknown Essential (primary) hypertension ICD-9: 401.9 ICD-10: I10 Active 03/23/2016 Unknown Mild intermittent asthma with (acute) exacerbation ICD-9: 493.90 ICD-10: J45.21 Active 09/24/2015 Unknown Other retention of urine ICD-9: 788.29 ICD-10: R33.8 Active 07/10/2018 Unknown Encounter for immunization ICD-9: V04.81 ICD-10: Z23 Active 07/12/2016 Unknown Low back pain ICD-9: 724.2 ICD-10: M54.5 Active 02/14/2017 Unknown Personal history of other diseases of the musculoskeletal system and connective tissue ICD-9: V13.59 ICD-10: Z87.39 Active 06/19/2018 Unknown Primary hyperparathyroidism ICD-9: 252.01 ICD-10: E21.0 Active 06/19/2018 Unknown Sciatica, right side ICD-9: 724.3 ICD-10: M54.31 Active 02/14/2017 Unknown Dysuria ICD-9: 788.1 ICD-10: R30.0 Active 06/15/2018 Unknown Encounter for general adult medical examination with abnormal findings ICD-9: V70.0 ICD-10: Z00.01 Active 01/08/2018 Unknown Mild intermittent asthma, uncomplicated ICD-9: 493.20 ICD-10: J45.20 Active 03/23/2016 Unknown Mixed hyperlipidemia ICD-9: 272.4 ICD-10: E78.2 Active 01/08/2018 Unknown Shortness of breath ICD-9: 786.05 ICD-10: R06.02 Active 01/08/2018 Unknown Cough ICD-9: 786.2 ICD-10: R05 Active 01/30/2017 Unknown Other allergic rhinitis ICD-9: 477.8 ICD-10: J30.89 Active 06/30/2017 Unknown Hypothryroidism Unknown Active 06/30/2017 Unknown Dizziness and giddiness ICD-9: 780.4 ICD-10: R42 Active 05/08/2017 Unknown Sciatica Unknown Active 02/14/2017 Unknown Acute recurrent maxillary sinusitis ICD-9: 461.0 ICD-10: J01.01 Active 08/23/2015 Unknown Encounter for general adult medical examination without abnormal findings ICD-9: V70.9 ICD-10: Z00.00 Active 01/02/2017 Unknown Tinea corporis ICD-9: 110.5 ICD-10: B35.4 Active 12/29/2016 Unknown Epistaxis ICD-9: 784.7 ICD-10: R04.0 Active 03/31/2016 Unknown Insomnia, unspecified ICD-9: 780.52 ICD-10: G47.00 Active 03/23/2016 Unknown Allergic rhinitis due to pollen ICD-9: 477.0 ICD-10: J30.1 Active 08/23/2015 Unknown Encounter for screening for malignant neoplasm of vagina ICD-9: V76.47 ICD-10: Z12.72 Active 06/11/2015 Unknown Pelvic and perineal pain ICD-9: [id number] ICD-10: R10.2 Active 06/11/2015 Unknown Well woman exam ICD-9 : V70.0 Active 06/11/2015 Unknown ACUTE MAXILLARY SINUSITIS ICD-9: 461.0 Active 05/28/2015 Unknown Tinea corporis ICD-9: 110.5 Active 05/28/2015 Unknown Comedone ICD-9: 706.1 Active 03/25/2015 Unknown IMPACTED CERUMEN ICD-9 : 380.4 Active 03/25/2015 Unknown Seborrheic keratoses ICD-9: 702.19 Active 03/25/2015 Unknown Skin tag ICD-9: 701.9 Active 03/25/2015 Unknown Diabetes Unknown Active 03/17/2015 Unknown HYPERLIPIDEMIA ICD-9: 272.4 Active 06/27/2011 Unknown INSECT BITE HIP/LEG ICD-9: 916.4 Active 03/16/2015 Unknown Acute bronchitis ICD-9 : 466.0 Active 10/15/2014 Unknown CHRONIC OBSTRUCTIVE ASTHMA WITH EXACERBATION ICD-9: 493.22 Active 10/15/2014 Unknown COUGH ICD-9: 786.2 Active 10/15/2014 Unknown MALAISE AND FATIGUE ICD-9: 780.79 Active 10/15/2014 Unknown Acute anterior epistaxis ICD-9: 784.7 Active 04/10/2014 Unknown ESSENTIAL HYPERTENSION ICD-9: 401.9 Active 04/10/2014 Unknown Nasal congestion ICD-9 : 478.19 Active 02/17/2014 Unknown Sleep apnea ICD-9: 780.57 Active 2013 Unknown Encounter for long-term (current) use of medications ICD-9: V58.69 Active 03/14/2012 Unknown Hypertension Unknown Active 03/08/2012 Unknown CHRONIC OBSTRUCTIVE ASTHMA ICD-9: 493.20 Active 09/28/2011 Unknown PAIN IN LIMB ICD-9: 729.5 Active 09/28/2011 Unknown Primary generalized (osteo)arthritis ICD-9: 715.09 Active 09/28 Unknown VACCIN FOR INFLUENZA ICD-9: V04.81 Active 07/05/2011 Unknown ROUTINE PHYSICL LAB EXAM ICD-9: V72.62 Active 06/28/2011 Unknown Hyperlipidemia Unknown Active 06/27/2011 Unknown Osteoarthritis Unknown Active 06/27/2011 Unknown ACUTE SINUSITIS ICD-9 : 461.9 Active 06/27/2011 Unknown Asthma ICD-9: 493.90 Active 06/27/2011 Unknown Osteoarthritis ICD-9: 715.90 Active 06/27/2011 Unknown Allergies Unknown Active 06/26/2011 Unknown Asthma Unknown Active 06/26/2011 Unknown Depression Unknown Active 06/26/2011 Unknown Irritable bowel syndrome Unknown Active 06/26/2011 Unknown Transient ischemic attack (TIA) Unknown Active 06/26/2011 Unknown Problems Condition Codes Effective Dates Condition Status Postherpetic trigeminal neuralgia ICD-9: 053.12 ICD-10: B02.22 11/07/2018 Active Chronic obstructive pulmonary disease with (acute) exacerbation ICD-9: 491.21 ICD-10: J44.1 11/07/2018 Active Chronic frontal sinusitis ICD-9: 478.19 ICD-10: J32.1 09/04/2018 Active Essential (primary) hypertension ICD-9: 401.9 ICD-10: I10 03/23/2016 Active Mild intermittent asthma with (acute) exacerbation ICD-9: 493.90 ICD-10: J45.21 09/24/2015 Active Other retention of urine ICD-9: 788.29 ICD-10: R33.8 07/10/2018 Active Encounter for immunization ICD-9: V04.81 ICD-10: Z23 07/12/2016 Active Low back pain ICD-9: 724.2 ICD-10: M54.5 02/14/2017 Active Personal history of other diseases of the musculoskeletal system and connective tissue ICD-9: V13.59 ICD-10: Z87.39 06/19/2018 Active Primary hyperparathyroidism ICD-9: 252.01 ICD-10: E21.0 06/19/2018 Active Sciatica, right side ICD-9: 724.3 ICD-10: M54.31 02/14/2017 Active Dysuria ICD-9: 788.1 ICD-10: R30.0 06/15/2018 Active Encounter for general adult medical examination with abnormal findings ICD-9: V70.0 ICD-10: Z00.01 01/08/2018 Active Mild intermittent asthma, uncomplicated ICD-9: 493.20 ICD-10: J45.20 03/23/2016 Active Mixed hyperlipidemia ICD-9: 272.4 ICD-10: E78.2 01/08/2018 Active Shortness of breath ICD-9: 786.05 ICD-10: R06.02 01/08/2018 Active Cough ICD-9: 786.2 ICD-10: R05 01/30/2017 Active Other allergic rhinitis ICD-9: 477.8 ICD-10: J30.89 06/30/2017 Active Hypothryroidism Unknown 06/30/2017 Active Dizziness and giddiness ICD-9: 780.4 ICD-10: R42 05/08/2017 Active Sciatica Unknown 02/14/2017 Active Acute recurrent maxillary sinusitis ICD-9: 461.0 ICD-10: J01.01 08/23/2015 Active Encounter for general adult medical examination without abnormal findings ICD-9: V70.9 ICD-10: Z00.00 01/02/2017 Active Tinea corporis ICD-9: 110.5 ICD-10: B35.4 12/29/2016 Active Epistaxis ICD-9: 784.7 ICD-10: R04.0 03/31/2016 Active Insomnia, unspecified ICD-9: 780.52 ICD-10: G47.00 03/23/2016 Active Allergic rhinitis due to pollen ICD-9: 477.0 ICD-10: J30.1 08/23/2015 Active Encounter for screening for malignant neoplasm of vagina ICD-9: V76.47 ICD-10: Z12.72 06/11/2015 Active Pelvic and perineal pain ICD-9: [id number] ICD-10: R10.2 06/11/2015 Active Well woman exam ICD-9 : V70.0 06/11/2015 Active ACUTE MAXILLARY SINUSITIS ICD-9: 461.0 05/28/2015 Active Tinea corporis ICD-9: 110.5 05/28/2015 Active Comedone ICD-9: 706.1 03/25/2015 Active IMPACTED CERUMEN ICD-9 : 380.4 03/25/2015 Active Seborrheic keratoses ICD-9: 702.19 03/25/2015 Active Skin tag ICD-9: 701.9 03/25/2015 Active Diabetes Unknown 03/17/2015 Active HYPERLIPIDEMIA ICD-9: 272.4 06/27/2011 Active INSECT BITE HIP/LEG ICD-9: 916.4 03/16/2015 Active Acute bronchitis ICD-9 : 466.0 10/15/2014 Active CHRONIC OBSTRUCTIVE ASTHMA WITH EXACERBATION ICD-9: 493.22 10/15/2014 Active COUGH ICD-9: 786.2 10/15/2014 Active MALAISE AND FATIGUE ICD-9: 780.79 10/15/2014 Active Acute anterior epistaxis ICD-9: 784.7 04/10/2014 Active ESSENTIAL HYPERTENSION ICD-9: 401.9 04/10/2014 Active Nasal congestion ICD-9 : 478.19 02/17/2014 Active Sleep apnea ICD-9: 780.57 2013 Active Encounter for long-term (current) use of medications ICD-9: V58.69 03/14/2012 Active Hypertension Unknown 03/08/2012 Active CHRONIC OBSTRUCTIVE ASTHMA ICD-9: 493.20 09/28/2011 Active PAIN IN LIMB ICD-9: 729.5 09/28/2011 Active Primary generalized (osteo)arthritis ICD-9: 715.09 09/28/2011 Active VACCIN FOR INFLUENZA ICD-9: V04.81 07/05/2011 Active ROUTINE PHYSICL LAB EXAM ICD-9: V72.62 06/28/2011 Active Hyperlipidemia Unknown 06/27/2011 Active Osteoarthritis Unknown 06/27/2011 Active ACUTE SINUSITIS ICD-9 : 461.9 06/27/2011 Active Asthma ICD-9: 493.90 06/27/2011 Active Osteoarthritis ICD-9: 715.90 06/27/2011 Active Allergies Unknown 06/26/2011 Active Asthma Unknown 06/26/2011 Active Depression Unknown 06/26/2011 Active Irritable bowel syndrome Unknown 06/26/2011 Active Transient ischemic attack (TIA) Unknown 06/26/2011 Active Medications Medication Codes Instructions Start Date Stop Date Status Fill Instructions amlodipine 5 mg tablet RxNorm: 924668 1 Tablet(s) PO daily 06/06/2019 Active ProAir HFA 90 mcg/actuation aerosol inhaler RxNorm: 8058808 1-2 INH QID as needed 11/07/2018 03/06/2019 Active valacyclovir 1 gram tablet RxNorm: 961294 1 Tablet(s) PO BID 11/20/2018 Active prednisone 10 mg tablet RxNorm: 994352 1 Tablet(s) PO UD 2tabs bid x3days, then 2tabs AM and 1tabPM x3days, then 1tab BID x 3days then 1tab AM x 3 days then stop 11/07/2018 No Stop Date Active albuterol sulfate 1.25 mg/3 mL solution for nebulization RxNorm: 139097 3 Milliliter(s) INH Q4 PRN as needed dyspnea from COPD 201811/01/2019 Active gemfibrozil 600 mg tablet RxNorm: 399259 1 TABLET(S) PO TAKE ONE TABLET BY MOUTH TWICE DAILY 10/15/2018 07/11/2019 Active Diflucan 150 mg tablet RxNorm: 798606 1 Tablet(s) PO daily 09/13/2018 Inactive amlodipine 2.5 mg tablet RxNorm: 492391 1 Tablet(s) PO daily 11/08/2018 Inactive albuterol sulfate 1.25 mg/3 mL solution for nebulization RxNorm: 649986 3 Milliliter(s) INH Q4 PRN as needed dyspnea 07/10/2018 11/06/2018 Inactive Diflucan 150 mg tablet RxNorm: 097018 1 Tablet(s) PO daily x 3 days then may repeat in 10 days if symptoms are not resolved in throat 01/201806/30/2018 Inactive Keflex 500 mg capsule RxNorm: 683242 1 Capsule(s) PO TID 201706/21/2018 Inactive Keflex 500 mg capsule RxNorm: 350597 1 Capsule(s) PO TID 201706/14/2018 Inactive paroxetine 20 mg tablet RxNorm: 0196968 TAKE 1/2 TABLET BY MOUTH EVERY DAY 05/09/2018 02/02/2019 Active prednisone 20 mg tablet RxNorm: 078029 2 Tablet(s) PO daily 03/22/2018 Inactive Celebrex 200 mg capsule RxNorm: 775376 TAKE 1 CAPSULE BY MOUTH TWO TIMES DAILY 03/08/2018 09/03/2018 Inactive - First Attempt Ref: [id number] Singulair 10 mg tablet RxNorm: 142769 Tablet(s) TAKE 1 TABLET BY MOUTH DAILY 02/27/2018 02/21/2019 Active Kenalog 40 mg/mL suspension for injection RxNorm: 8416963 1 Milliliter(s) Inj 02/02/2018 02/02/2018 Inactive Singulair 10 mg tablet RxNorm: 444204 TAKE 1 TABLET BY MOUTH DAILY 01/05/2018 02/26/2018 Inactive - First Attempt Ref: [id number] pantoprazole 40 mg tablet,delayed release RxNorm: 170799 Tablet(s) TAKE 1 TABLET DAILY 12/19/2017 01/07/2018 Inactive gemfibrozil 600 mg tablet RxNorm: 987324 1 TABLET(S) PO TAKE ONE TABLET BY MOUTH TWICE DAILY 12/05/2017 08/31/2018 Inactive albuterol sulfate 1.25 mg/3 mL solution for nebulization RxNorm: 882279 3 Milliliter(s) INH Q4 PRN as needed dyspnea 11/22/2017 05/20/2018 Inactive albuterol sulfate 1.25 mg/3 mL solution for nebulization RxNorm: 714308 3 Milliliter(s) INH Q4 PRN as needed dyspnea 11/02/2017 11/21/2017 Inactive methylprednisolone 4 mg tablets in a dose pack RxNorm: 581945 1 Tablet(s) PO UD 09/01/2017 No Stop Date Active albuterol sulfate 1.25 mg/3 mL solution for nebulization RxNorm: 978343 3 Milliliter(s) INH Q4 PRN as needed dyspnea 09/01/2017 11/01/2017 Inactive Keflex 500 mg capsule RxNorm: 948030 1 Capsule(s) PO TID 201609/10/2017 Inactive methylprednisolone 4 mg tablets in a dose pack RxNorm: 048453 1 Tablet(s) PO UD To start tomorrow 08/21/2017 08/31/2017 Inactive Kenalog 40 mg/mL suspension for injection RxNorm: 9761828 Milliliter(s) Inj 08/21/2017 08/21/2017 Inactive Levaquin 500 mg tablet RxNorm: 238145 1 Tablet(s) PO daily 03/201708/27/2017 Inactive Ativan 0.5 mg tablet RxNorm: 150776 1 Tablet(s) PO 1 hour before MRI, may repeat dose x1 07/21/2017 07/20/2017 Inactive Ativan 0.5 mg tablet RxNorm: 628423 1 Tablet(s) PO 1 hour before MRI, february repeat dose x1 07/21/2017 07/21/2017 Inactive ProAir HFA 90 mcg/actuation aerosol inhaler RxNorm: 7898391 1-2 INH QID as needed 07/18/2017 11/14/2017 Inactive Kenalog 40 mg/mL suspension for injection RxNorm: 6659669 Milliliter(s) Inj 06/30/2017 06/30/2017 Inactive albuterol sulfate 1.25 mg/3 mL solution for nebulization RxNorm: 009017 3 Milliliter(s) INH Q4 PRN as needed dyspnea 06/07/2017 08/31/2017 Inactive Keflex 500 mg capsule RxNorm: 130261 1 Capsule(s) PO TID 201606/01/2017 Inactive Keflex 500 mg capsule RxNorm: 607557 1 Capsule(s) PO TID 201606/08/2017 Inactive methylprednisolone 4 mg tablets in a dose pack RxNorm: 055606 1 Tablet(s) PO UD To start tomorrow 05/10/2017 08/20/2017 Inactive Kenalog 40 mg/mL suspension for injection RxNorm: 5317592 Milliliter(s) Inj 05/09/2017 05/09/2017 Inactive Voltaren 1 % topical gel RxNorm: 891699 1 Application TOP TID as needed 05/08/2017 No Stop Date Active paroxetine 20 mg tablet RxNorm: 9472759 TAKE 1/2 TABLET BY MOUTH EVERY DAY 05/03/2017 04/27/2018 Inactive gemfibrozil 600 mg tablet RxNorm: 816148 1 TABLET(S) PO TAKE ONE TABLET BY MOUTH TWICE DAILY 02/21/2017 11/17/2017 Inactive Celebrex 200 mg capsule RxNorm: 518945 1 Capsule(s) PO BID 02/02/2018 Inactive Celebrex 200 mg capsule RxNorm: 079090 1 Capsule(s) PO BID TAKE 1 CAPSULE TWICE DAILY 02/02/2017 02/07/2017 Inactive ketoconazole 2 % shampoo RxNorm: 268554 1 Application TOP daily x 1 week then weekly as needed for rash 01/31/2017 No Stop Date Active DC topical cream ProAir RespiClick 90 mcg/actuation breath activated RxNorm: 5006947 1 -2 INH Q4H as needed ASTHMA 01/31/2017 07/17/2017 Inactive Kenalog 40 mg/mL suspension for injection RxNorm: 1670245 1.5 Milliliter(s) Inj 01/30/2017 01/30/2017 Inactive Levaquin 500 mg tablet RxNorm: 144591 1 Tablet(s) PO daily 02/05/2017 Inactive Celebrex 200 mg capsule RxNorm: 944878 1 Capsule(s) PO BID TAKE 1 CAPSULE TWICE DAILY 01/30/2017 02/01/2017 Inactive methylprednisolone 4 mg tablets in a dose pack RxNorm: 370494 1 Tablet(s) PO UD 01/30/2017 05/08/2017 Inactive ketoconazole 2 % shampoo RxNorm: 237878 1 Application TOP daily x 1 week then weekly as needed for rash 12/30/201601/30 Inactive DC topical cream aspirin 81 mg tablet,delayed release RxNorm: 968510 1 Tablet(s) PO daily 12/29/2016 No Stop Date Active ketoconazole 2 % topical cream RxNorm: 475921 1 Application TOP daily x 1 week then weekly as needed for rash 12/29/2016 12/29/2016 Inactive Singulair 10 mg tablet RxNorm: 322973 Tablet(s) TAKE 1 TABLET DAILY 11/30/2016 11/23/2017 Inactive pantoprazole 40 mg tablet,delayed release RxNorm: 702876 Tablet(s) TAKE 1 TABLET DAILY 11/30/2016 11/23/2017 Inactive paroxetine 20 mg tablet RxNorm: 4160531 Tablet(s) TAKE ONE-HALF TABLET BY MOUTH EVERY DAY 11/25/2016 05/02/2017 Inactive paroxetine 20 mg tablet RxNorm: 7398131 Tablet(s) TAKE ONE-HALF TABLET BY MOUTH EVERY DAY 11/17/2016 11/24/2016 Inactive Levaquin 500 mg tablet RxNorm: 398504 1 Tablet(s) PO daily 11/24/2016 Inactive pantoprazole 40 mg tablet,delayed release RxNorm: 642218 TAKE 1 TABLET DAILY 08/22/2016 11/29/2016 Inactive gemfibrozil 600 mg tablet RxNorm: 126976 1 TABLET(S) PO TAKE ONE TABLET BY MOUTH TWICE DAILY 05/06/2016 01/30/2017 Inactive temazepam 7.5 mg capsule RxNorm: 829276 1 Capsule(s) PO HS PRN 03/24/2016 No Stop Date Active Singulair 10 mg tablet RxNorm: 360780 Tablet(s) TAKE 1 TABLET DAILY 03/07/2016 11/29/2016 Inactive Singulair 10 mg tablet RxNorm: 039785 Tablet(s) TAKE 1 TABLET DAILY 03/07/2016 03/06/2016 Inactive pantoprazole 40 mg tablet,delayed release RxNorm: 553790 TAKE 1 TABLET DAILY 02/15/2016 08/12/2016 Inactive Celebrex 200 mg capsule RxNorm: 256427 1 Capsule(s) PO BID TAKE 1 CAPSULE TWICE DAILY 01/25/2016 01/17/2017 Inactive gemfibrozil 600 mg tablet RxNorm: 881337 1 TABLET(S) PO TAKE ONE TABLET BY MOUTH TWICE DAILY 11/10/2015 05/05/2016 Inactive Patient requests 90 days supply Levaquin 500 mg tablet RxNorm: 678032 1 Tablet(s) PO daily 10/08/2015 Inactive albuterol sulfate 1.25 mg/3 mL solution for nebulization RxNorm: 884301 3 Milliliter(s) INH PRN as needed dyspnea 09/25/2015 06/06/2017 Inactive Levaquin 500 mg tablet RxNorm: 914210 1 Tablet(s) PO daily 06/201509/02/2015 Inactive albuterol sulfate HFA 90 mcg/actuation aerosol inhaler RxNorm: 1654034 1-2 Puff(s ) INH Q4 PRN as needed 08/24/20152016 Inactive sample and rX provided albuterol sulfate HFA 90 mcg/actuation aerosol inhaler RxNorm: 7327445 1-2 Puff(s ) INH Q4 PRN as needed 08/24/20152014 Inactive sample and rX provided paroxetine 20 mg tablet RxNorm: 0699766 Tablet(s) TAKE ONE-HALF TABLET BY MOUTH EVERY DAY 08/21/2015 03/17/2016 Inactive pantoprazole 40 mg tablet,delayed release RxNorm: 944852 1 Tablet(s) PO daily 07/27/2015 07/26/2015 Inactive pantoprazole 40 mg tablet,delayed release RxNorm: 876069 1 Tablet(s) PO daily 07/27/2015 01/22/2016 Inactive gemfibrozil 600 mg tablet RxNorm: 178648 1 TABLET(S) PO TAKE ONE TABLET BY MOUTH TWICE DAILY 07/10/2015 11/09/2015 Inactive nystatin (bulk) 100 million unit powder RxNorm: 1 APPLICATION TOP TID 06/25/2015 07/15/2015 Inactive Kenalog 40 mg/mL suspension for injection RxNorm: 9272768 Milliliter(s) Inj 05/29/2015 05/29/2015 Inactive Keflex 500 mg capsule RxNorm: 132995 1 Capsule(s) PO TID 201406/07/2015 Inactive nystatin (bulk) 100 million unit powder RxNorm: 1 Application TOP TID 05/29/2015 06/18/2015 Inactive ceftriaxone 500 mg solution for injection RxNorm: 6041699 Inj 05/29/2015 05/29/2015 Inactive Fioricet 50 mg-325 mg-40 mg tablet RxNorm: 918182 1 Tablet(s) PO Q6 PRN as needed 04/20/2015 07/18/2015 Inactive Bactroban 2 % topical ointment RxNorm: 522546 1 TOP BID 2014 No Stop Date Active Align 4 mg capsule RxNorm: 294968 1 Capsule(s) PO daily 03/1912/28/2016 Inactive Singulair 10 mg tablet RxNorm: 483667 TAKE 1 TABLET DAILY 03/0202/24/2016 Inactive Bactroban 2 % topical ointment RxNorm: 857425 1 APPLICATION TOP BID 12/02/2014 12/11/2014 Inactive right nare ceftriaxone 500 mg solution for injection RxNorm: 710009 Inj 10/15/2014 Inactive Keflex 500 mg capsule RxNorm: 075674 1 Capsule(s) PO BID 201310/28/2014 Inactive Kenalog 40 mg/mL suspension for injection RxNorm: 3466326 Milliliter(s) Inj 10/15/2014 10/15/2014 Inactive prednisone 20 mg tablet RxNorm: 023195 1 Tablet(s) PO daily 10/24/2014 Inactive Tudorza Pressair 400 mcg/actuation breath activated RxNorm: 6652820 1 Puff(s) INH BID 10/15/2014 11/13/2014 Inactive gemfibrozil 600 mg tablet RxNorm: 283567 1 Tablet(s) PO TAKE ONE TABLET BY MOUTH TWICE DAILY 09/29/2014 06/25/2015 Inactive Celebrex 200 mg capsule RxNorm: 339564 1 Capsule(s) PO BID TAKE 1 CAPSULE TWICE DAILY 07/31/2014 07/25/2015 Inactive paroxetine 20 mg tablet RxNorm: 027710 TAKE ONE-HALF TABLET BY MOUTH EVERY DAY 07/15/2014 02/09/2015 Inactive Bactroban 2 % topical ointment RxNorm: 245301 1 Application TOP BID 04/10/2014 04/14/2014 Inactive right nare Singulair 10 mg tablet RxNorm: 068550 1 Tablet(s) PO daily TAKE 1 TABLET DAILY 02/27/2014 02/21/2015 Inactive Celebrex 200 mg capsule RxNorm: 800266 1 Capsule(s) PO BID TAKE 1 CAPSULE TWICE DAILY 02/27/2014 07/30/2014 Inactive ciprofloxacin 500 mg tablet RxNorm: 622114 1 Tablet(s) PO BID 02/17/2014 02/26/2014 Inactive prednisone 20 mg tablet RxNorm: 413369 1 Tablet(s) PO daily 02/201402/21/2014 Inactive Fioricet 50 mg-325 mg-40 mg tablet RxNorm: 388247 1 Tablet(s) PO Q6 PRN 02/17/2014 05/16/2014 Inactive Kenalog 40 mg/mL suspension for injection RxNorm: 9320949 Milliliter(s) Inj 02/17/2014 02/17/2014 Inactive Bactrim 400 mg-80 mg tablet RxNorm: 347135 1 Tablet(s) PO BID 12/25/2013 12/24/2013 Inactive Omnicef 300 mg capsule RxNorm: 813962 1 Capsule(s) PO BID 12/2501/03/2014 Inactive please dc the bactrim order. pt states she is allergic. Bactrim 400 mg-80 mg tablet RxNorm: 759485 1 Tablet(s) PO BID 12/25/2013 12/25/2013 Inactive gemfibrozil 600 mg tablet RxNorm: 122419 Tablet(s) PO TAKE ONE TABLET BY MOUTH TWICE DAILY 12/12/2013 09/28/2014 Inactive Rocephin 500 mg solution for injection RxNorm: 932728 Inj 12/0512/05/2013 Inactive Bactroban 2 % topical ointment RxNorm: 870446 1 Application TOP BID right nare 12/05/2013 12/11/2013 Inactive Keflex 500 mg capsule RxNorm: 506040 1 Capsule(s) PO BID 201312/11/2013 Inactive paroxetine 20 mg tablet RxNorm: 294881 Tablet(s) PO TAKE ONE-HALF TABLET BY MOUTH EVERY DAY 07/15/2013 07/14/2014 Inactive Influenza Virus Vaccine 0.5 mL RxNorm: IM 07/09/2013 07/09/2013 Inactive Singulair 10 mg tablet RxNorm: 661224 Tablet(s) PO TAKE 1 TABLET DAILY 05/30/2013 02/26/2014 Inactive Celebrex 200 mg capsule RxNorm: 644298 Capsule(s) PO TAKE 1 CAPSULE TWICE DAILY 04/13/2013 02/26/2014 Inactive Singulair 10 mg tablet RxNorm: 709441 1 Tablet(s) PO daily 05/29/2013 Inactive gemfibrozil 600 mg tablet RxNorm: 602758 Tablet(s) PO TAKE ONE TABLET BY MOUTH TWICE DAILY 11/28/2012 12/11/2013 Inactive Rocephin 500 mg Solution for Injection RxNorm: 558747 1 Milliliter(s) Inj 10/23/2012 10/23/2012 Inactive paroxetine 20 mg tablet RxNorm: 826008 1/2 Tablet(s) PO daily 07/13/2012 07/14/2013 Inactive TAKE ONE-HALF TABLET BY MOUTH EVERY DAY Fioricet 50 mg-325 mg-40 mg tablet RxNorm: 659786 1 Tablet(s) PO Q6 PRN 04/17/2012 07/15/2012 Inactive gemfibrozil 600 mg tablet RxNorm: 004989 Tablet(s) PO 201111/27/2012 Inactive TAKE ONE TABLET BY MOUTH TWICE DAILY gemfibrozil 600 mg Tab RxNorm: 139446 1 Tablet(s) PO BID 201111/16/2011 Inactive MIDRIN 325 mg-65 mg-100 mg Cap RxNorm: 351314 1 Capsule(s) PO Q4-6H 09/15/2011 04/17/2012 Inactive max 8 tabs/24 hours Influenza Virus Vaccine 0.5 mL RxNorm: IM 07/05/2011 07/05/2011 Inactive Pulmicort Flexhaler 180 mcg/Inhalation Breath Activated RxNorm: 8998544 1 Puff(s) INH daily 06/27/2011 07/26/2011 Inactive Singulair 10 mg tablet RxNorm: 641196 1 Tablet(s) PO daily 09/201107/26/2011 Inactive Celebrex 200 mg capsule RxNorm: 702596 1 Capsule(s) PO BID 09/201104/12/2013 Inactive paroxetine 20 mg tablet RxNorm: 428897 1/2 Tablet(s) PO daily 06/27/2011 07/13/2012 Inactive gemfibrozil 600 mg Tab RxNorm: 837568 1 Tablet(s) PO BID 201011/15/2011 Inactive requests 90 day supply-refilled but needs labs ama[place]. vitamin B6-vitamin E-magnesium Oral RxNorm: Oral No Start Date Active Advil Oral RxNorm: Oral No Start Date Active ranitidine 150 mg tablet RxNorm: 496414 1 Tablet(s) PO daily No Start Date Active Claritin 10 mg tablet RxNorm: 020380 1 Tablet(s) PO daily No Start Date Active Flexeril 5 mg Tab RxNorm: 567195 1/2-2 Tablet(s) PO PRN 1/2-1 po q 8 hours prn back pain or muscle spasms No Start Date Active Dulera 200 mcg-5 mcg/actuation HFA aerosol inhaler RxNorm: 1472971 1 INH BID No Start Date Active folic acid Oral RxNorm : Oral No Start Date Active vitamin G61-dverurb B1 Oral RxNorm: Oral No Start Date Active chlordiazepoxide-clidinium 5 mg-2.5 mg Cap RxNorm: 395361 1 Capsule(s) PO PRN For IBS No Start Date Active Singulair 10 mg Tab RxNorm: 214494 1 Tablet(s) PO daily No Start Date 06/26/2011 Inactive Omnicef 300 mg capsule RxNorm: 688757 1 Capsule(s) PO BID No Start Date 12/24/2013 Inactive albuterol sulfate HFA 90 mcg/Actuation Aerosol Inhaler RxNorm: 7089488 1-2 Puff(s ) INH Q4 PRN No Start Date 08/23/2015 Inactive sample and rX provided aspirin 81 mg Tab, Delayed Release RxNorm: 227294 1 Tablet(s) PO BID No Start Date 12/28/2016 Inactive Tudorza Pressair 400 mcg/actuation Breath Activated RxNorm: 3932378 1 Puff(s) INH BID No Start Date 10/14/2014 Inactive niacin ER 500 mg Tab RxNorm: 643245 1 Tablet(s) PO QHS No Start Date 02/27/2013 Inactive Celebrex 200 mg Cap RxNorm: 059836 1 Capsule(s) PO BID No Start Date 06/26/2011 Inactive loratadine 10 mg Tab RxNorm: 7714007 1 Tablet(s) PO daily No Start Date 02/27/2013 Inactive Nasonex 50 mcg/Actuation [place] RxNorm: 252907 2 [place] NASAL BID No Start Date 06/26/2011 Inactive Zithromax Z-Marty 250 mg Tab RxNorm: 457215 Tablet(s) PO No Start Date 07/11/2011 Inactive 2 tabs today, then tabs 2-5 daily Zithromax Z-Marty 250 mg tablet RxNorm: 448984 Tablet(s) PO UD No Start Date 04/21/2013 Inactive Tessalon Perles 100 mg Cap RxNorm: 902431 1 Capsule(s) PO PRN No Start Date 07/11/2011 Inactive albuterol sulfate HFA 90 mcg/Actuation Aerosol Inhaler RxNorm: 573904 Inhalation No Start Date 06/27/2011 Inactive Nasacort AQ 55 mcg Nasal [place] Aerosol RxNorm: 3915214 1 [place] NASAL PRN No Start Date 12/28/2016 Inactive gemfibrozil 600 mg Tab RxNorm: 634010 1 Tablet(s) PO BID No Start Date 06/26/2011 Inactive Pulmicort Flexhaler 180 mcg/Inhalation [place] Activated RxNorm: 4172378 1 INH daily No Start Date 06/26/2011 Inactive paroxetine 20 mg Tab RxNorm: 059460 1/2 Tablet(s) PO daily No Start Date 06/26/2011 Inactive MIDRIN 325 mg-65 mg-100 mg Cap RxNorm: 160596 1 Capsule(s) PO Q4-6H No Start Date 09/14/2011 Inactive max 8 tabs/24 hours beta carotene Oral RxNorm: Oral No Start Date 12/28/2016 Inactive Medication Administered Medication Codes Instructions Start Date Status Kenalog 40 mg/mL suspension for injection RxNorm: 7443115 1Milliliter 02/02/2018 No longer Active Kenalog 40 mg/mL suspension for injection RxNorm: 6034131 [place] 08/21/2017 No longer Active Kenalog 40 mg/mL suspension for injection RxNorm: 2858495 [place] 06/30/2017 No longer Active Kenalog 40 mg/mL suspension for injection RxNorm: 1172387 [place] 05/09/2017 No longer Active Kenalog 40 mg/mL suspension for injection RxNorm: 5258429 1.5Milliliter 01/30/2017 No longer Active ceftriaxone 500 mg solution for injection RxNorm: 4528283 05/29/2015 No longer Active Kenalog 40 mg/mL suspension for injection RxNorm: 1264219 [place] 05/29/2015 No longer Active Kenalog 40 mg/mL suspension for injection RxNorm: 5530695 [place] 10/15/2014 No longer Active ceftriaxone 500 mg solution for injection RxNorm: 799050 10/15/2014 No longer Active Kenalog 40 mg/mL suspension for injection RxNorm: 0055907 [place] 02/17/2014 No longer Active Rocephin 500 mg solution for injection RxNorm: 977232 12/05/2013 No longer Active Influenza Virus Vaccine 0.5 mL RxNorm: 07/09/2013 No longer Active Rocephin 500 mg Solution for Injection RxNorm: 245798 1Milliliter 10/23/2012 No longer Active Influenza Virus Vaccine 0.5 mL RxNorm: 07/05/2011 No longer Active Immunizations Vaccine Codes Date Status Influenza CVX: 141 06/28/2018 completed Influenza CVX: 141 07/18/2017 completed Influenza CVX: 141 07/13/2016 completed Influenza CVX: 141 07/10/2015 completed Influenza CVX: 141 07/09/2013 completed PPD Unknown 06/11/2013 completed Influenza CVX: 141 07/05/2011 completed Influenza Unknown 06/28/2011 completed Tetanus/Diptheria Unknown 01/20/2011 completed Pneumococcal Unknown 11/18/2008 completed Assessments Condition Codes Effective Dates Postherpetic trigeminal neuralgia ICD-10: B02.22 ICD-9: 053.12 11/19/2018 Chronic obstructive pulmonary disease with (acute) exacerbation ICD-10: J44.1 ICD-9: 491.21 11/07/2018 Chronic frontal sinusitis ICD-10: J32.1 ICD-9: 478.19 09/04/2018 Essential (primary) hypertension ICD-10: I10 ICD-9: 401.9 09/04/2018 Mild intermittent asthma with (acute) exacerbation ICD-10: J45.21 ICD-9: 493.90 07/10/2018 Other retention of urine ICD-10: R33.8 ICD-9: 788.29 07/10/2018 Encounter for immunization ICD-10: Z23 ICD-9: V04.81 06/28/2018 Personal history of other diseases of the musculoskeletal system and connective tissue ICD-10: Z87.39 ICD-9: V13.59 06/19/2018 Primary hyperparathyroidism ICD-10: E21.0 ICD-9: 252.01 06/19/2018 Dysuria ICD-10: R30.0 ICD-9: 788.1 06/15/2018 Low back pain ICD-10: M54.5 ICD-9: 724.2 01/29/2018 Sciatica, right side ICD-10: M54.31 ICD-9: 724.3 01/29/2018 Shortness of breath ICD-10: R06.02 ICD-9: 786.05 01/08/2018 Encounter for general adult medical examination with abnormal findings ICD-10: Z00.01 ICD-9: V70.0 01/08/2018 Mild intermittent asthma, uncomplicated ICD-10: J45.20 ICD-9: 493.20 01/08/2018 Mixed hyperlipidemia ICD-10: E78.2 ICD-9: 272.4 01/08/2018 Cough ICD-10: R05 ICD-9: 786.2 08/21/2017 Other allergic rhinitis ICD-10: J30.89 ICD-9: 477.8 08/21/2017 Dizziness and giddiness ICD-10: R42 ICD-9: 780.4 05/08/2017 Acute recurrent maxillary sinusitis ICD-10: J01.01 ICD-9: 461.0 01/30/2017 Encounter for general adult medical examination without abnormal findings ICD-10: Z00.00 ICD-9: V70.9 01/02/2017 Tinea corporis ICD-10: B35.4 ICD-9: 110.5 12/29/2016 Epistaxis ICD-10: R04.0 ICD-9: 784.7 04/01/2016 Insomnia, unspecified ICD-10: G47.00 ICD-9: 780.52 03/24/2016 Allergic rhinitis due to pollen ICD-10: J30.1 ICD-9: 477.0 08/24/2015 VACCIN FOR INFLUENZA ICD-9: V04.81 2014 Well woman exam ICD-9: V70.0 06/12/2015 Pelvic and perineal pain ICD-10: R10.2 ICD-9: BXQ3517 06/12/2015 Encounter for screening for malignant neoplasm of vagina ICD -10: Z12.72 ICD-9: V76.47 06/12/2015 ACUTE MAXILLARY SINUSITIS ICD-9: 461.0 Tinea corporis ICD-9: 110.5 05/29/2015 Skin tag ICD-9: 701.9 03/26/2015 IMPACTED CERUMEN ICD-9: 380.4 03/26/2015 [place] ICD-9: 706.1 03/26/2015 Seborrheic keratoses ICD-9: 702.19 2014 Fatigue ICD-9: 780.79 03/17/2015 HYPERLIPIDEMIA ICD-9: 272.4 03/17/2015 ESSENTIAL HYPERTENSION ICD-9: 401.9 03/17 INSECT BITE HIP/LEG ICD-9: 916.4 2014 Acute bronchitis ICD-9: 466.0 10/15/2014 CHRONIC OBSTRUCTIVE ASTHMA WITH EXACERBATION ICD-9: 493.22 10/15/2014 COUGH ICD-9: 786.2 10/15/2014 Acute anterior epistaxis ICD-9: 784.7 Nasal congestion ICD-9: 478.19 2013 ACUTE SINUSITIS ICD-9: 461.9 12/05/2013 GENERAL OSTEOARTHROSIS-MULT ICD-9: 715.09 09/25/2013 CHRONIC OBSTRUCTIVE ASTHMA ICD-9: 493.20 09/25/2013 SLEEP APNEA NOS ICD-9: 780.57 09/25/2013 OSTEOARTH NOS-UNSPEC ICD-9: 715.90 2012 Encounter for long-term (current) use of medications ICD-9: V58.69 03/14/2012 PAIN IN LIMB ICD-9: 729.5 09/28/2011 ROUTINE PHYSICL LAB EXAM ICD-9: V72.62 Asthma ICD-9: 493.90 06/27/2011 Reason For Visit Reason For Visit Effective Dates Notes hypertension 11/19/2018 hypertension 11/07/2018 hypertension 09/04/2018 improving abnormal test results 07/10/2018 abnormal test results 06/19/2018 back pain 01/29/2018 Annual Medicare Wellness Exam 01/08/2018 sinus congestion 08/21/2017 cough 07/18/2017 improving cough 06/30/2017 back pain 05/08/2017 cough 02/14/2017 cough 01/31/2017 cough 01/30/2017 Annual Medicare Wellness Exam 01/02/2017 hypertension 12/29/2016 vaccination against influenza 07/13/2016 epistaxis 04/01/2016 Hospital Follow Up 03/24/2016 Hospital Follow Up 09/25/2015 cough 08/24/2015 vaccination against influenza 07/10/2015 well woman exam (65+ years) 06/12/2015 sinus congestion 05/29/2015 skin lesion 03/26/2015 hyperlipidemia 03/17/2015 sore throat 10/15/2014 chronic, but she spit up greenish blood tinged sputum nosebleed 04/10/2014 sore throat 02/17/2014 sinus congestion 12/05/2013 hyperlipidemia 09/25/2013 shortness of breath 07/09/2013 fatigue 2013 arm pain 03/22/2013 fatigue 02/28/2013 sinus congestion 10/23/2012 osteoarthritis 03/08/2012 dyspnea 09/28/2011 headache 06/27/2011 Results Observation Observation Code Item Item Code Result Date Urine Culture Ucult Preliminary NO Growth Day 1 06/19/2018 Urine Culture Ucult Complete NO Growth Day 2 06/19/2018 Parathyroid Hormone Sbv946 PTH 81.40 pg/ml 05/10/2018 Comp Metabolic Fzh085 NA 142 mEq/L 05/10/2018 Comp Metabolic Ova113 K 4.1 mEq/L 05/10/2018 Comp Metabolic Euk272 CL 105 mEq/L 05/10/2018 Comp Metabolic Nhl260 CO2 27.0 mEq/L 05/10/2018 Comp Metabolic Mnq781 ANION GAP 14 05/10/2018 Comp Metabolic Ujy922 GLUCOSE 95 mg/dL 05/10/2018 Comp Metabolic Kkh030 Creat 0.9 mg/dL 05/10/2018 Comp Metabolic Ezc212 eGFR 65 ml/min/1.73m2 05/10/2018 Comp Metabolic Fek681 BUN 15 mg/dL 05/10/2018 Comp Metabolic Zum328 B/C Ratio 16.9 Ratio 05/10/2018 Comp Metabolic Vno252 CALCIUM 9.8 mg/dL 05/10/2018 Comp Metabolic Ilk165 ALK PHOS 77 U/L 05/10/2018 Comp Metabolic Grr336 AST(SGOT) 24 U/L 05/10/2018 Comp Metabolic Qfn545 ALT(SGPT) 23 U/L 05/10/2018 Comp Metabolic Phs192 BILI T 0.5 mg/dL 05/10/2018 Comp Metabolic Med113 ALBUMIN 4.8 g/dL 05/10/2018 Comp Metabolic Cyd958 TPRO 7.2 g/dL 05/10/2018 Comp Metabolic Qhg686 GLOB 2.5 g/dL 05/10/2018 Comp Metabolic Vmc497 A/G Ratio 1.9 Ratio 05/10/2018 Comp Metabolic Rme359 Osmo 284 mOsmo 05/10/2018 Vitamin D 25 Oh Vhq3009 VITAMIN D, 25 HYDROXY 51.58 ng/mL Tsh Ord6 TSH (3rd IS) 5.32 uIU/mL 05/10/2018 Cbc With Differential Ord2 WBC 8.56 K/ul 05/10/2018 Cbc With Differential Ord2 RBC 4.48 M/ul 05/10/2018 Cbc With Differential Ord2 HGB 14.4 g/dl 05/10/2018 Cbc With Differential Ord2 HCT 42.4 % 05/10/2018 Cbc With Differential Ord2 Neut% 37.2 % 05/10/2018 Cbc With Differential Ord2 Lymph% 41.1 % 05/10/2018 Cbc With Differential Ord2 MCV 94.6 fl 05/10/2018 Cbc With Differential Ord2 [place]% 9.6 % 05/10/2018 Cbc With Differential Ord2 MCH 32.1 pg 05/10/2018 Cbc With Differential Ord2 Eos% 11.7 % 05/10/2018 Cbc With Differential Ord2 MCHC 34.0 pg 05/10/2018 Cbc With Differential Ord2 Baso% 0.4 % 05/10/2018 Cbc With Differential Ord2 PLT 396 K/ul 05/10/2018 Cbc With Differential Ord2 RDW 12.9 % 05/10/2018 Cbc With Differential Ord2 Neut ABS# 3.19 K/ul 05/10/2018 Cbc With Differential Ord2 Lymph ABS# 3.52 K/ul 05/10/2018 Cbc With Differential Ord2 [place] ABS# 0.8 K/ul 05/10/2018 Cbc With Differential Ord2 Eos ABS# 1.0 K/ul 05/10/2018 Cbc With Differential Ord2 Baso ABS# 0.0 K/ul 05/10/2018 Lipid Ord30 CHOL 159 mg/dL 01/09/2018 Lipid Ord30 HDL 59.0 mg/dl 01/09/2018 Lipid Ord30 TRIG 101 mg/dL 01/09/2018 Lipid Ord30 LDL 80 mg/dL 01/09/2018 Lipid Ord30 C/HDL 2.7 Ratio 01/09/2018 Cbc With Differential Ord2 WBC 7.06 K/ul 01/09/2018 Cbc With Differential Ord2 RBC 4.43 M/ul 01/09/2018 Cbc With Differential Ord2 HGB 14.0 g/dl 01/09/2018 Cbc With Differential Ord2 Neut% 40.5 % 01/09/2018 Cbc With Differential Ord2 HCT 41.7 % 01/09/2018 Cbc With Differential Ord2 Lymph% 43.2 % 01/09/2018 Cbc With Differential Ord2 MCV 94.1 fl 01/09/2018 Cbc With Differential Ord2 MCH 31.6 pg 01/09/2018 Cbc With Differential Ord2 [place]% 9.8 % 01/09/2018 Cbc With Differential Ord2 Eos% 6.4 % 01/09/2018 Cbc With Differential Ord2 MCHC 33.6 pg 01/09/2018 Cbc With Differential Ord2 Baso% 0.1 % 01/09/2018 Cbc With Differential Ord2 PLT 395 K/ul 01/09/2018 Cbc With Differential Ord2 Neut ABS# 2.86 K/ul 01/09/2018 Cbc With Differential Ord2 RDW 12.5 % 01/09/2018 Cbc With Differential Ord2 Lymph ABS# 3.05 K/ul 01/09/2018 Cbc With Differential Ord2 [place] ABS# 0.7 K/ul 01/09/2018 Cbc With Differential Ord2 Eos ABS# 0.5 K/ul 01/09/2018 Cbc With Differential Ord2 Baso ABS# 0.0 K/ul 01/09/2018 Tsh Ord6 TSH (3rd IS) 3.12 uIU/mL 01/09/2018 Comp Metabolic Ppm918 NA 140 mEq/L 01/09/2018 Comp Metabolic Tte462 K 4.0 mEq/L 01/09/2018 Comp Metabolic Mnx847 CL 105 mEq/L 01/09/2018 Comp Metabolic Vkp622 CO2 28.0 mEq/L 01/09/2018 Comp Metabolic Aqd818 ANION GAP 11 01/09/2018 Comp Metabolic Pku433 GLUCOSE 98 mg/dL 01/09/2018 Comp Metabolic Scs322 Creat 0.7 mg/dL 01/09/2018 Comp Metabolic Wwj405 eGFR 87 ml/min/1.73m2 01/09/2018 Comp Metabolic Qdh953 BUN 14 mg/dL 01/09/2018 Comp Metabolic Mjx319 B/C Ratio 20.3 Ratio 01/09/2018 Comp Metabolic Iuh329 CALCIUM 9.8 mg/dL 01/09/2018 Comp Metabolic Qlf669 ALK PHOS 113 U/L 01/09/2018 Comp Metabolic Fzd390 AST(SGOT) 22 U/L 01/09/2018 Comp Metabolic Oqs435 ALT(SGPT) 22 U/L 01/09/2018 Comp Metabolic Hna075 BILI T 0.5 mg/dL 01/09/2018 Comp Metabolic Xys086 ALBUMIN 4.6 g/dL 01/09/2018 Comp Metabolic Gbc497 TPRO 7.0 g/dL 01/09/2018 Comp Metabolic Tgx020 GLOB 2.4 g/dL 01/09/2018 Comp Metabolic Xan709 A/G Ratio 2.0 Ratio 01/09/2018 Comp Metabolic Don961 Osmo 280 mOsmo 01/09/2018 Lipid Ord30 CHOL 163 mg/dL 12/27/2016 Lipid Ord30 HDL 63.0 mg/dl 12/27/2016 Lipid Ord30 TRIG 62 mg/dL 12/27/2016 Lipid Ord30 LDL 88 mg/dL 12/27/2016 Lipid Ord30 C/HDL 2.6 Ratio 12/27/2016 Tsh Ord6 hTSH II 2.47 uIU/mL 12/27/2016 Comp Metabolic Ghj117 NA 140 mEq/L 12/27/2016 Comp Metabolic Gka675 K 4.0 mEq/L 12/27/2016 Comp Metabolic Xzh479 CL 105 mEq/L 12/27/2016 Comp Metabolic Pjf506 CO2 28.0 mEq/L 12/27/2016 Comp Metabolic Dud108 ANION GAP 11 12/27/2016 Comp Metabolic Pco919 GLUCOSE 102 mg/dL 12/27/2016 Comp Metabolic Uvp285 Creat 0.7 mg/dL 12/27/2016 Comp Metabolic Vfw301 eGFR 81 ml/min/1.73m2 12/27/2016 Comp Metabolic Gcc456 BUN 15 mg/dL 12/27/2016 Comp Metabolic Qgn519 B/C Ratio 20.3 Ratio 12/27/2016 Comp Metabolic Npn258 CALCIUM 10.0 mg/dL 12/27/2016 Comp Metabolic Xxl621 ALK PHOS 110 U/L 12/27/2016 Comp Metabolic Hbe348 AST(SGOT) 20 U/L 12/27/2016 Comp Metabolic Qid539 ALT(SGPT) 22 U/L 12/27/2016 Comp Metabolic Qdc008 BILI T 0.5 mg/dL 12/27/2016 Comp Metabolic Wjx237 ALBUMIN 4.7 g/dL 12/27/2016 Comp Metabolic Pqb008 TPRO 7.2 g/dL 12/27/2016 Comp Metabolic Sjf176 GLOB 2.5 g/dL 12/27/2016 Comp Metabolic Fjo849 A/G Ratio 1.9 Ratio 12/27/2016 Comp Metabolic Vmb156 Osmo 280 mOsmo 12/27/2016 Cbc With Differential Ord2 WBC 7.34 K/ul 12/27/2016 Cbc With Differential Ord2 RBC 4.32 M/ul 12/27/2016 Cbc With Differential Ord2 HGB 13.8 g/dl 12/27/2016 Cbc With Differential Ord2 HCT 40.3 % 12/27/2016 Cbc With Differential Ord2 Neut% 30.6 % 12/27/2016 Cbc With Differential Ord2 MCV 93.3 fl 12/27/2016 Cbc With Differential Ord2 Lymph% 49.0 % 12/27/2016 Cbc With Differential Ord2 MCH 31.9 pg 12/27/2016 Cbc With Differential Ord2 [place]% 8.6 % 12/27/2016 Cbc With Differential Ord2 MCHC 34.2 pg 12/27/2016 Cbc With Differential Ord2 Eos% 11.4 % 12/27/2016 Cbc With Differential Ord2 PLT 369 K/ul 12/27/2016 Cbc With Differential Ord2 Baso% 0.4 % 12/27/2016 Cbc With Differential Ord2 RDW 12.4 % 12/27/2016 Cbc With Differential Ord2 Neut ABS# 2.24 K/ul 12/27/2016 Cbc With Differential Ord2 Lymph ABS# 3.60 K/ul 12/27/2016 Cbc With Differential Ord2 [place] ABS# 0.6 K/ul 12/27/2016 Cbc With Differential Ord2 Eos ABS# 0.8 K/ul 12/27/2016 Cbc With Differential Ord2 Baso ABS# 0.0 K/ul 12/27/2016 Cbc With Differential Ord2 WBC 7.53 K/ul 06/13/2016 Cbc With Differential Ord2 RBC 4.51 M/ul 06/13/2016 Cbc With Differential Ord2 HGB 14.3 g/dl 06/13/2016 Cbc With Differential Ord2 HCT 42.2 % 06/13/2016 Cbc With Differential Ord2 Neut% 34.3 % 06/13/2016 Cbc With Differential Ord2 MCV 93.6 fl 06/13/2016 Cbc With Differential Ord2 Lymph% 43.3 % 06/13/2016 Cbc With Differential Ord2 [place]% 8.4 % 06/13/2016 Cbc With Differential Ord2 MCH 31.7 pg 06/13/2016 Cbc With Differential Ord2 MCHC 33.9 pg 06/13/2016 Cbc With Differential Ord2 Eos% 13.7 % 06/13/2016 Cbc With Differential Ord2 Baso% 0.3 % 06/13/2016 Cbc With Differential Ord2 PLT 361 K/ul 06/13/2016 Cbc With Differential Ord2 RDW 12.5 % 06/13/2016 Cbc With Differential Ord2 Neut ABS# 2.59 K/ul 06/13/2016 Cbc With Differential Ord2 Lymph ABS# 3.26 K/ul 06/13/2016 Cbc With Differential Ord2 [place] ABS# 0.6 K/ul 06/13/2016 Cbc With Differential Ord2 Eos ABS# 1.0 K/ul 06/13/2016 Cbc With Differential Ord2 Baso ABS# 0.0 K/ul 06/13/2016 Comp Metabolic Huo847 NA 141 mEq/L 03/25/2016 Comp Metabolic Xur944 K 4.0 mEq/L 03/25/2016 Comp Metabolic Pat608 CL 103 mEq/L 03/25/2016 Comp Metabolic Eop553 CO2 28.0 mEq/L 03/25/2016 Comp Metabolic Uyj931 ANION GAP 14 03/25/2016 Comp Metabolic Eaa657 GLUCOSE 91 mg/dL 03/25/2016 Comp Metabolic Lfh187 Creat 0.8 mg/dL 03/25/2016 Comp Metabolic Reu733 eGFR 70 ml/min/1.73m2 03/25/2016 Comp Metabolic Vcs043 BUN 16 mg/dL 03/25/2016 Comp Metabolic Gup845 B/C Ratio 19.0 Ratio 03/25/2016 Comp Metabolic Ppe587 CALCIUM 9.8 mg/dL 03/25/2016 Comp Metabolic Hpd233 ALK PHOS 111 U/L 03/25/2016 Comp Metabolic Naz333 AST(SGOT) 19 U/L 03/25/2016 Comp Metabolic Ygp196 ALT(SGPT) 19 U/L 03/25/2016 Comp Metabolic Qpc786 BILI T 0.6 mg/dL 03/25/2016 Comp Metabolic Ycx757 ALBUMIN 4.6 g/dL 03/25/2016 Comp Metabolic Ozo959 TPRO 7.4 g/dL 03/25/2016 Comp Metabolic Rbf561 GLOB 2.8 g/dL 03/25/2016 Comp Metabolic Pxg954 A/G Ratio 1.7 Ratio 03/25/2016 Comp Metabolic Bdr836 Osmo 282 mOsmo 03/25/2016 Tsh Ord6 hTSH II 3.61 uIU/mL 03/25/2016 Lipid Ord30 CHOL 176 mg/dL 03/25/2016 Lipid Ord30 HDL 63.0 mg/dl 03/25/2016 Lipid Ord30 TRIG 66 mg/dL 03/25/2016 Lipid Ord30 LDL 100 mg/dL 03/25/2016 Lipid Ord30 C/HDL 2.8 Ratio 03/25/2016 Cbc With Differential Ord2 WBC 8.02 K/ul 03/25/2016 Cbc With Differential Ord2 RBC 4.35 M/ul 03/25/2016 Cbc With Differential Ord2 HGB 13.9 g/dl 03/25/2016 Cbc With Differential Ord2 Neut% 40.5 % 03/25/2016 Cbc With Differential Ord2 HCT 40.9 % 03/25/2016 Cbc With Differential Ord2 Lymph% 39.9 % 03/25/2016 Cbc With Differential Ord2 MCV 94.0 fl 03/25/2016 Cbc With Differential Ord2 [place]% 9.4 % 03/25/2016 Cbc With Differential Ord2 MCH 32.0 pg 03/25/2016 Cbc With Differential Ord2 MCHC 34.0 pg 03/25/2016 Cbc With Differential Ord2 Eos% 9.7 % 03/25/2016 Cbc With Differential Ord2 PLT 440 K/ul 03/25/2016 Cbc With Differential Ord2 Baso% 0.5 % 03/25/2016 Cbc With Differential Ord2 RDW 12.5 % 03/25/2016 Cbc With Differential Ord2 Neut ABS# 3.25 K/ul 03/25/2016 Cbc With Differential Ord2 Lymph ABS# 3.20 K/ul 03/25/2016 Cbc With Differential Ord2 [place] ABS# 0.8 K/ul 03/25/2016 Cbc With Differential Ord2 Eos ABS# 0.8 K/ul 03/25/2016 Cbc With Differential Ord2 Baso ABS# 0.0 K/ul 03/25/2016 GFR CALC 1411057 GFR AA >60 ML/MIN 03/14/2012 GFR CALC 3284008 GFR NON-AA >60 ML/MIN 03/14/2012 TSH 6905532 TSH 2.609 uIU/ML 03/14/2012 LIPID GRP HDL TEST 63 MG/DL 03/14/2012 LIPID GRP 7855881 TRIG 68 MG/DL 03/14/2012 LIPID GRP TEST LDL 88 MG/DL 03/14/2012 LIPID GRP CHOL 165 MG/DL 03/14/2012 LIPID GRP RCHOL/HDL 2.62 RATIO 03/14/2012 CHEM 14 0469528 AST 24 U/L 03/14/2012 CHEM 14 9505893 ALT 26 IU/L 03/14/2012 CHEM 14 9041651 BUN 17 MG/DL 03/14/2012 CHEM 14 8607956 ALBUMIN 4.8 GM/DL 03/14/2012 CHEM 14 8571660 CHLORIDE 106 MMOL/L 03/14/2012 CHEM 14 8399912 BILI TOT 0.6 MG/DL 03/14/2012 CHEM 14 4441027 ALK PHOS 115 U/L 03/14/2012 CHEM 14 8943556 SODIUM 141 MMOL/L 03/14/2012 CHEM 14 9085877 CREATININE 0.78 MG/DL 03/14/2012 CHEM 14 7555220 CALCIUM 9.9 MG/DL 03/14/2012 CHEM 14 9038316 POTASSIUM 4.2 MMOL/L 03/14/2012 CHEM 14 2530383 PROT TOT 7.4 GM/DL 03/14/2012 CHEM 14 4608072 GLUCOSE 91 MG/DL 03/14/2012 CHEM 14 4786299 BICARB 27 MMOL/L 03/14/2012 CHEM 14 7263805 ANION GAP 8 MEQ/L 03/14/2012 CBC 3183393 WBC 5.9 10e9/L 03/14/2012 CBC 3243987 RBC 4.62 10e12/L 03/14/2012 CBC 8647783 HGB 14.5 g/dL 03/14/2012 CBC 1446515 HCT DET 42.4 % 03/14/2012 CBC 0277445 MCV 91.8 fL 03/14/2012 CBC 4525605 MCH 31.4 pg 03/14/2012 CBC 8985013 MCHC 34.2 g/dL 03/14/2012 CBC 5639975 PLT 370 10e9/L 03/14/2012 CBC 1125322 MPV 10.2 fL 03/14/2012 CBC 8737699 NANO % 36.6 % 03/14/2012 CBC 9113552 LY % 47.6 % 03/14/2012 CBC 9589828 MON % 10.0 % 03/14/2012 CBC 9387165 EOS % 5.6 % 03/14/2012 CBC 7730938 BASO % 0.2 % 03/14/2012 CBC 5432183 RDW 12.3 % 03/14/2012 CBC 9190916 ABS NANO 2.16 10e9/L 03/14/2012 CBC 7071658 ABS LYMPH 2.81 10e9/L 03/14/2012 CBC 0137187 ABS MONO 0.59 10e9/L 03/14/2012 CBC 4125667 ABS EOS 0.33 10e9/L 03/14/2012 CBC 3141499 ABS BASO 0.01 10e9/L 03/14/2012 CBC 9512916 RDW-SD 40.4 fL 03/14/2012 Review of Systems System Result Effective Dates Constitutional recent illness 11/19/2018 Constitutional No anorexia 11/19/2018 Constitutional No night sweats 2018 Constitutional No chills 11/19/2018 Constitutional No diaphoresis 11/19/2018 Constitutional fatigue 11/19/2018 Constitutional No fever 11/19/2018 Eyes No eye discharge 11/19/2018 Eyes No eye erythema 11/19/2018 Ears/Nose/Throat/Neck No dizziness 2018 Ears/Nose/Throat/Neck No dysphagia 2018 Ears/Nose/Throat/Neck No headache 2018 Ears/Nose/Throat/Neck No hearing loss 01/2019 Ears/Nose/Throat/Neck No nasal allergies 11/19/2018 Ears/Nose/Throat/Neck nasal discharge 01/2019 Ears/Nose/Throat/Neck No postnasal drip 11/19/2018 Ears/Nose/Throat/Neck No sinus congestion 11/19/2018 Cardiovascular No chest pain/pressure 01/2019 Cardiovascular dyspnea 11/19/2018 Cardiovascular fatigue 11/19/2018 Cardiovascular hypertension 11/19/2018 Respiratory No chest tightness 2018 Respiratory cough 11/19/2018 Gastrointestinal No abdominal pain 2018 Gastrointestinal No constipation 2018 Gastrointestinal No diarrhea 11/19/2018 Gastrointestinal No nausea 11/19/2018 Gastrointestinal No vomiting 11/19/2018 Genitourinary/Nephrology No dysuria 11/19 Musculoskeletal stiffness 11/19/2018 Musculoskeletal arthralgia(s) 11/19/2018 Musculoskeletal No joint complaint 2018 Musculoskeletal sciatica 11/19/2018 Neurologic No dizziness 11/19/2018 Neurologic No headache 11/19/2018 Neurologic pain, facial 11/19/2018 Neurologic No neck pain 11/19/2018 Neurologic No syncope 11/19/2018 Neurologic weakness 11/19/2018 Psychiatric No anxiety 11/19/2018 Psychiatric No depression 11/19/2018 Constitutional recent illness 11/07/2018 Constitutional No anorexia 11/07/2018 Constitutional No night sweats 2018 Constitutional No chills 11/07/2018 Constitutional No diaphoresis 11/07/2018 Constitutional fatigue 11/07/2018 Constitutional No fever 11/07/2018 Eyes No eye discharge 11/07/2018 Eyes No eye erythema 11/07/2018 Ears/Nose/Throat/Neck No dizziness 2018 Ears/Nose/Throat/Neck No dysphagia 2018 Ears/Nose/Throat/Neck No headache 2018 Ears/Nose/Throat/Neck No hearing loss Ears/Nose/Throat/Neck No nasal allergies 11/07/2018 Ears/Nose/Throat/Neck nasal discharge Ears/Nose/Throat/Neck sore throat 2018 Ears/Nose/Throat/Neck No postnasal drip 11/07/2018 Ears/Nose/Throat/Neck No sinus congestion 11/07/2018 Cardiovascular No chest pain/pressure Cardiovascular dyspnea 11/07/2018 Cardiovascular fatigue 11/07/2018 Cardiovascular hypertension 11/07/2018 Respiratory No chest tightness 2018 Respiratory cough 11/07/2018 Gastrointestinal No abdominal pain 2018 Gastrointestinal No constipation 2018 Gastrointestinal No diarrhea 11/07/2018 Gastrointestinal No nausea 11/07/2018 Gastrointestinal No vomiting 11/07/2018 Genitourinary/Nephrology No dysuria 11/07 Musculoskeletal stiffness 11/07/2018 Musculoskeletal arthralgia(s) 11/07/2018 Musculoskeletal No joint complaint 2018 Musculoskeletal sciatica 11/07/2018 Neurologic No dizziness 11/07/2018 Neurologic No headache 11/07/2018 Neurologic No neck pain 11/07/2018 Neurologic No syncope 11/07/2018 Psychiatric No anxiety 11/07/2018 Psychiatric No depression 11/07/2018 Neurologic pain, facial 11/07/2018 Neurologic weakness 11/07/2018 Constitutional No anorexia 09/04/2018 Constitutional No night sweats 2017 Constitutional No chills 09/04/2018 Constitutional No diaphoresis 09/04/2018 Constitutional fatigue 09/04/2018 Constitutional No fever 09/04/2018 Eyes No eye discharge 09/04/2018 Eyes No eye erythema 09/04/2018 Ears/Nose/Throat/Neck No dizziness 2017 Ears/Nose/Throat/Neck No dysphagia 2017 Ears/Nose/Throat/Neck No headache 2017 Ears/Nose/Throat/Neck No hearing loss Ears/Nose/Throat/Neck No nasal allergies 09/04/2018 Ears/Nose/Throat/Neck sore throat 2017 Ears/Nose/Throat/Neck No postnasal drip 09/04/2018 Ears/Nose/Throat/Neck No sinus congestion 09/04/2018 Cardiovascular No chest pain/pressure Cardiovascular dyspnea 09/04/2018 Cardiovascular fatigue 09/04/2018 Respiratory No chest tightness 2017 Respiratory cough 09/04/2018 Gastrointestinal No abdominal pain 2017 Gastrointestinal No constipation 2017 Gastrointestinal No diarrhea 09/04/2018 Gastrointestinal No nausea 09/04/2018 Gastrointestinal No vomiting 09/04/2018 Genitourinary/Nephrology No dysuria 09/04 Musculoskeletal stiffness 09/04/2018 Musculoskeletal arthralgia(s) 09/04/2018 Musculoskeletal No joint complaint 2017 Musculoskeletal sciatica 09/04/2018 Dermatologic No rash 09/04/2018 Dermatologic No sores 09/04/2018 Neurologic No dizziness 09/04/2018 Neurologic No headache 09/04/2018 Neurologic No neck pain 09/04/2018 Neurologic No syncope 09/04/2018 Psychiatric No anxiety 09/04/2018 Psychiatric No depression 09/04/2018 Ears/Nose/Throat/Neck nasal discharge Cardiovascular hypertension 09/04/2018 Constitutional recent illness 07/10/2018 Constitutional No anorexia 07/10/2018 Constitutional No night sweats 2017 Constitutional No chills 07/10/2018 Constitutional No diaphoresis 07/10/2018 Constitutional fatigue 07/10/2018 Constitutional No fever 07/10/2018 Eyes No eye discharge 07/10/2018 Eyes No eye erythema 07/10/2018 Ears/Nose/Throat/Neck No dental pain Ears/Nose/Throat/Neck No dizziness 2017 Ears/Nose/Throat/Neck No dysphagia 2017 Ears/Nose/Throat/Neck No headache 2017 Ears/Nose/Throat/Neck No hearing loss Ears/Nose/Throat/Neck No nasal allergies 07/10/2018 Ears/Nose/Throat/Neck No sore throat Ears/Nose/Throat/Neck No postnasal drip 07/10/2018 Ears/Nose/Throat/Neck No sinus congestion 07/10/2018 Cardiovascular No chest pain/pressure Cardiovascular dyspnea 07/10/2018 Cardiovascular fatigue 07/10/2018 Respiratory chest tightness 07/10/2018 Respiratory cough 07/10/2018 Gastrointestinal No abdominal pain 2017 Gastrointestinal No constipation 2017 Gastrointestinal No diarrhea 07/10/2018 Gastrointestinal No nausea 07/10/2018 Gastrointestinal No vomiting 07/10/2018 Genitourinary/Nephrology No dysuria 07/10 Musculoskeletal stiffness 07/10/2018 Musculoskeletal arthralgia(s) 07/10/2018 Musculoskeletal No joint complaint 2017 Musculoskeletal sciatica 07/10/2018 Dermatologic No rash 07/10/2018 Dermatologic No sores 07/10/2018 Neurologic No dizziness 07/10/2018 Neurologic No headache 07/10/2018 Neurologic No neck pain 07/10/2018 Neurologic No syncope 07/10/2018 Psychiatric No anxiety 07/10/2018 Psychiatric No depression 07/10/2018 Constitutional No recent illness 2017 Constitutional No chills 06/19/2018 Constitutional No diaphoresis 06/19/2018 Constitutional No fever 06/19/2018 Eyes No eye discharge 06/19/2018 Eyes No eye erythema 06/19/2018 Ears/Nose/Throat/Neck nasal allergies 01/2018 Ears/Nose/Throat/Neck nasal discharge 01/2018 Ears/Nose/Throat/Neck postnasal drip 01/2018 Ears/Nose/Throat/Neck sinus congestion Ears/Nose/Throat/Neck sore throat 2017 Cardiovascular No chest pain/pressure 01/2018 Respiratory asthma 06/19/2018 Respiratory productive sputum 06/19/2018 Respiratory cough 06/19/2018 Respiratory dyspnea on exertion 2017 Gastrointestinal No abdominal pain 2017 Gastrointestinal No constipation 2017 Gastrointestinal No diarrhea 06/19/2018 Genitourinary/Nephrology No dysuria 06/19 Musculoskeletal No joint complaint 2017 Neurologic No alteration of consciousness 06/19/2018 Neurologic No mental status change 2017 Dermatologic rash 06/19/2018 Constitutional No recent illness 2017 Constitutional No chills 01/29/2018 Constitutional No fever 01/29/2018 Eyes No eye erythema 01/29/2018 Ears/Nose/Throat/Neck No nasal discharge 01/29/2018 Cardiovascular No chest pain/pressure Cardiovascular No dyspnea 01/29/2018 Respiratory No cough 01/29/2018 Respiratory No dyspnea 01/29/2018 Musculoskeletal joint complaint 2017 Neurologic No alteration of consciousness 01/29/2018 Neurologic No mental status change 2017 Constitutional No recent illness 2017 Constitutional No chills 01/08/2018 Constitutional No diaphoresis 01/08/2018 Constitutional No fever 01/08/2018 Eyes No blindness 01/08/2018 Ears/Nose/Throat/Neck No nasal allergies 01/08/2018 Ears/Nose/Throat/Neck No nasal discharge 01/08/2018 Cardiovascular No chest pain/pressure Cardiovascular No dyspnea 01/08/2018 Respiratory dyspnea 01/08/2018 Gastrointestinal No abdominal pain 2017 Gastrointestinal No constipation 2017 Gastrointestinal No diarrhea 01/08/2018 Gastrointestinal No nausea 01/08/2018 Gastrointestinal No vomiting 01/08/2018 Musculoskeletal No joint complaint 2017 Dermatologic No rash 01/08/2018 Neurologic No alteration of consciousness 01/08/2018 Neurologic No mental status change 2017 Respiratory dyspnea on exertion 2017 Constitutional No recent illness 2016 Constitutional No chills 08/21/2017 Constitutional No diaphoresis 08/21/2017 Constitutional No fever 08/21/2017 Eyes No eye discharge 08/21/2017 Eyes No eye erythema 08/21/2017 Ears/Nose/Throat/Neck nasal allergies 03/2017 Ears/Nose/Throat/Neck nasal discharge 03/2017 Cardiovascular No chest pain/pressure 03/2017 Respiratory productive sputum 08/21/2017 Respiratory cough 08/21/2017 Respiratory dyspnea on exertion 2016 Gastrointestinal No abdominal pain 2016 Gastrointestinal No constipation 2016 Gastrointestinal No diarrhea 08/21/2017 Genitourinary/Nephrology No dysuria 08/21 Musculoskeletal No joint complaint 2016 Neurologic No alteration of consciousness 08/21/2017 Ears/Nose/Throat/Neck sinus congestion Ears/Nose/Throat/Neck sore throat 2016 Ears/Nose/Throat/Neck postnasal drip 03/2017 Respiratory asthma 08/21/2017 Neurologic No mental status change 2016 Constitutional recent illness 07/18/2017 Constitutional No anorexia 07/18/2017 Constitutional No night sweats 2016 Constitutional No chills 07/18/2017 Constitutional No diaphoresis 07/18/2017 Constitutional fatigue 07/18/2017 Constitutional No fever 07/18/2017 Eyes No eye discharge 07/18/2017 Eyes No eye erythema 07/18/2017 Cardiovascular No chest pain/pressure 12/2016 Cardiovascular dyspnea 07/18/2017 Cardiovascular fatigue 07/18/2017 Respiratory chest tightness 07/18/2017 Respiratory cough 07/18/2017 Gastrointestinal No abdominal pain 2016 Gastrointestinal No constipation 2016 Gastrointestinal No diarrhea 07/18/2017 Gastrointestinal No nausea 07/18/2017 Gastrointestinal No vomiting 07/18/2017 Genitourinary/Nephrology No dysuria 07/18 Musculoskeletal No joint complaint 2016 Dermatologic No rash 07/18/2017 Dermatologic No sores 07/18/2017 Psychiatric No anxiety 07/18/2017 Psychiatric No depression 07/18/2017 Musculoskeletal stiffness 07/18/2017 Musculoskeletal arthralgia(s) 07/18/2017 Musculoskeletal sciatica 07/18/2017 Neurologic No dizziness 07/18/2017 Neurologic No headache 07/18/2017 Neurologic No neck pain 07/18/2017 Neurologic No syncope 07/18/2017 Ears/Nose/Throat/Neck No dental pain 12/2016 Ears/Nose/Throat/Neck No dizziness 2016 Ears/Nose/Throat/Neck No dysphagia 2016 Ears/Nose/Throat/Neck No headache 2016 Ears/Nose/Throat/Neck No hearing loss 12/2016 Ears/Nose/Throat/Neck No nasal allergies 07/18/2017 Ears/Nose/Throat/Neck No sore throat 12/2016 Ears/Nose/Throat/Neck No postnasal drip 07/18/2017 Ears/Nose/Throat/Neck No sinus congestion 07/18/2017 Respiratory productive sputum 06/30/2017 Respiratory cough 06/30/2017 Constitutional No recent illness 2016 Constitutional No anorexia 06/30/2017 Constitutional No night sweats 2016 Constitutional No chills 06/30/2017 Constitutional No diaphoresis 06/30/2017 Constitutional fatigue 06/30/2017 Constitutional No fever 06/30/2017 Constitutional No insomnia 06/30/2017 Constitutional No malaise 06/30/2017 Constitutional No weight loss 06/30/2017 Constitutional No weight gain 06/30/2017 Eyes No eye discharge 06/30/2017 Eyes No eye erythema 06/30/2017 Ears/Nose/Throat/Neck No dizziness 2016 Ears/Nose/Throat/Neck No headache 2016 Ears/Nose/Throat/Neck nasal allergies Ears/Nose/Throat/Neck nasal discharge Cardiovascular No chest pain/pressure Respiratory dyspnea on exertion 2016 Gastrointestinal No abdominal pain 2016 Gastrointestinal No constipation 2016 Gastrointestinal No diarrhea 06/30/2017 Genitourinary/Nephrology No dysuria 06/30 Musculoskeletal No joint complaint 2016 Dermatologic No rash 06/30/2017 Neurologic No alteration of consciousness 06/30/2017 Constitutional No recent illness 2016 Constitutional No chills 05/08/2017 Constitutional No diaphoresis 05/08/2017 Constitutional No fever 05/08/2017 Eyes No eye erythema 05/08/2017 Ears/Nose/Throat/Neck No nasal discharge 05/08/2017 Ears/Nose/Throat/Neck No nasal allergies 05/08/2017 Ears/Nose/Throat/Neck dizziness 2016 Ears/Nose/Throat/Neck No postnasal drip 05/08/2017 Cardiovascular No chest pain/pressure Cardiovascular No dyspnea 05/08/2017 Cardiovascular near-syncope/dizziness Respiratory No cough 05/08/2017 Respiratory No dyspnea 05/08/2017 Respiratory No chest congestion 2016 Gastrointestinal No abdominal pain 2016 Gastrointestinal No constipation 2016 Gastrointestinal No diarrhea 05/08/2017 Gastrointestinal No vomiting 05/08/2017 Gastrointestinal No nausea 05/08/2017 Musculoskeletal back pain 05/08/2017 Dermatologic No rash 05/08/2017 Neurologic No alteration of consciousness 05/08/2017 Neurologic No mental status change 2016 Constitutional No chills 02/14/2017 Constitutional No insomnia 02/14/2017 Eyes No eye discharge 02/14/2017 Eyes No eye erythema 02/14/2017 Ears/Nose/Throat/Neck No hoarseness 02/14 Ears/Nose/Throat/Neck No nasal discharge 02/14/2017 Cardiovascular No chest pain/pressure 11/2016 Cardiovascular No dyspnea 02/14/2017 Cardiovascular No edema 02/14/2017 Cardiovascular No syncope 02/14/2017 Respiratory No chest congestion 2016 Respiratory No chest tightness 2016 Respiratory No cough 02/14/2017 Respiratory No dyspnea on exertion 2016 Respiratory No dyspnea 02/14/2017 Respiratory No wheezing 02/14/2017 Gastrointestinal No anorexia 02/14/2017 Gastrointestinal No constipation 2016 Gastrointestinal No diarrhea 02/14/2017 Gastrointestinal No nausea 02/14/2017 Gastrointestinal No vomiting 02/14/2017 Dermatologic No rash 02/14/2017 Psychiatric No anxiety 02/14/2017 Psychiatric No depression 02/14/2017 Musculoskeletal No stiffness 02/14/2017 Musculoskeletal No swelling 02/14/2017 Musculoskeletal No muscle weakness 2016 Musculoskeletal No myalgias 02/14/2017 Constitutional No chills 01/31/2017 Constitutional No insomnia 01/31/2017 Eyes No eye discharge 01/31/2017 Eyes No eye erythema 01/31/2017 Ears/Nose/Throat/Neck No hoarseness 01/31 Ears/Nose/Throat/Neck No nasal discharge 01/31/2017 Cardiovascular No chest pain/pressure Cardiovascular No dyspnea 01/31/2017 Cardiovascular No edema 01/31/2017 Cardiovascular No syncope 01/31/2017 Respiratory No chest congestion 2016 Respiratory No chest tightness 2016 Respiratory No cough 01/31/2017 Respiratory No dyspnea on exertion 2016 Respiratory No dyspnea 01/31/2017 Respiratory No wheezing 01/31/2017 Gastrointestinal No anorexia 01/31/2017 Gastrointestinal No constipation 2016 Gastrointestinal No diarrhea 01/31/2017 Gastrointestinal No nausea 01/31/2017 Gastrointestinal No vomiting 01/31/2017 Dermatologic No rash 01/31/2017 Psychiatric No anxiety 01/31/2017 Psychiatric No depression 01/31/2017 Constitutional recent illness 01/30/2017 Constitutional No anorexia 01/30/2017 Constitutional No night sweats 2016 Constitutional No chills 01/30/2017 Constitutional No diaphoresis 01/30/2017 Constitutional fatigue 01/30/2017 Constitutional fever 01/30/2017 Constitutional No insomnia 01/30/2017 Constitutional No malaise 01/30/2017 Constitutional No weight loss 01/30/2017 Constitutional No weight gain 01/30/2017 Eyes No eye erythema 01/30/2017 Eyes No eye discharge 01/30/2017 Ears/Nose/Throat/Neck No dizziness 2016 Ears/Nose/Throat/Neck headache 2016 Ears/Nose/Throat/Neck nasal allergies Ears/Nose/Throat/Neck nasal discharge Ears/Nose/Throat/Neck sore throat 2016 Ears/Nose/Throat/Neck sinus congestion Cardiovascular No chest pain/pressure Cardiovascular No dyspnea 01/30/2017 Cardiovascular No edema 01/30/2017 Respiratory No productive sputum 2016 Respiratory chest congestion 01/30/2017 Respiratory cough 01/30/2017 Respiratory asthma 01/30/2017 Gastrointestinal No abdominal pain 2016 Genitourinary/Nephrology No dysuria 01/30 Musculoskeletal No joint complaint 2016 Dermatologic No rash 01/30/2017 Musculoskeletal No myalgias 01/30/2017 Neurologic No alteration of consciousness 01/30/2017 Constitutional No recent illness 2016 Constitutional No chills 01/02/2017 Constitutional No diaphoresis 01/02/2017 Constitutional No fever 01/02/2017 Eyes No eye erythema 01/02/2017 Ears/Nose/Throat/Neck No nasal allergies 01/02/2017 Ears/Nose/Throat/Neck No nasal discharge 01/02/2017 Cardiovascular No chest pain/pressure Cardiovascular No dyspnea 01/02/2017 Respiratory No dyspnea 01/02/2017 Gastrointestinal No abdominal pain 2016 Gastrointestinal No constipation 2016 Gastrointestinal No diarrhea 01/02/2017 Gastrointestinal No nausea 01/02/2017 Gastrointestinal No vomiting 01/02/2017 Musculoskeletal No joint complaint 2016 Dermatologic No rash 01/02/2017 Neurologic No alteration of consciousness 01/02/2017 Neurologic No mental status change 2016 Constitutional No chills 12/29/2016 Constitutional No insomnia 12/29/2016 Eyes No eye discharge 12/29/2016 Eyes No eye erythema 12/29/2016 Ears/Nose/Throat/Neck No hoarseness 12/29 Ears/Nose/Throat/Neck No nasal discharge 12/29/2016 Cardiovascular No chest pain/pressure Cardiovascular No dyspnea 12/29/2016 Cardiovascular No edema 12/29/2016 Cardiovascular No syncope 12/29/2016 Respiratory No chest congestion 2016 Respiratory No chest tightness 2016 Respiratory No cough 12/29/2016 Respiratory No dyspnea on exertion 2016 Respiratory No dyspnea 12/29/2016 Respiratory No wheezing 12/29/2016 Gastrointestinal No anorexia 12/29/2016 Gastrointestinal No constipation 2016 Gastrointestinal No diarrhea 12/29/2016 Gastrointestinal No nausea 12/29/2016 Gastrointestinal No vomiting 12/29/2016 Dermatologic No rash 12/29/2016 Psychiatric No anxiety 12/29/2016 Psychiatric No depression 12/29/2016 Ears/Nose/Throat/Neck epistaxis 2015 Constitutional No recent illness 2015 Constitutional No anorexia 03/24/2016 Constitutional No night sweats 2015 Constitutional No chills 03/24/2016 Constitutional No diaphoresis 03/24/2016 Constitutional fatigue 03/24/2016 Constitutional No fever 03/24/2016 Constitutional No insomnia 03/24/2016 Constitutional No malaise 03/24/2016 Constitutional No weight loss 03/24/2016 Constitutional No weight gain 03/24/2016 Constitutional No obesity 03/24/2016 Respiratory cough 03/24/2016 Respiratory No cigarette smoking 2015 Respiratory chest tightness 03/24/2016 Respiratory No chest congestion 2015 Ears/Nose/Throat/Neck nasal discharge 06/2016 Ears/Nose/Throat/Neck nasal allergies 06/2016 Ears/Nose/Throat/Neck epistaxis 2015 Ears/Nose/Throat/Neck No otitis media 06/2016 Ears/Nose/Throat/Neck No otalgia 2015 Ears/Nose/Throat/Neck No sinus congestion 03/24/2016 Respiratory dyspnea on exertion 2015 Respiratory dyspnea 03/24/2016 Cardiovascular No chest pain/pressure 06/2016 Cardiovascular No dyspnea 03/24/2016 Cardiovascular No edema 03/24/2016 Gastrointestinal No constipation 2015 Gastrointestinal No diarrhea 03/24/2016 Gastrointestinal No abdominal pain 2015 Genitourinary/Nephrology No dysuria 03/24 Genitourinary/Nephrology urinary retention/hesitancy 03/24/2016 Genitourinary/Nephrology urinary frequency 03/24/2016 Genitourinary/Nephrology No urinary urgency 03/24/2016 Genitourinary/Nephrology No urinary incontinence 03/24/2016 Endocrine flushing 03/24/2016 Psychiatric No depression 03/24/2016 Psychiatric No anxiety 03/24/2016 Musculoskeletal No muscle weakness 2015 Musculoskeletal No joint complaint 2015 Musculoskeletal No myalgias 03/24/2016 Dermatologic No sores 03/24/2016 Dermatologic No rash 03/24/2016 Eyes No eye discharge 03/24/2016 Eyes No eye erythema 03/24/2016 Constitutional recent illness 09/25/2015 Constitutional No anorexia 09/25/2015 Constitutional No night sweats 2014 Constitutional No chills 09/25/2015 Constitutional No diaphoresis 09/25/2015 Constitutional No fatigue 09/25/2015 Constitutional No fever 09/25/2015 Constitutional No insomnia 09/25/2015 Constitutional No malaise 09/25/2015 Eyes No eye discharge 09/25/2015 Eyes No eye erythema 09/25/2015 Ears/Nose/Throat/Neck No dizziness 2014 Ears/Nose/Throat/Neck No headache 2014 Cardiovascular No chest pain/pressure 08/2015 Respiratory No chest congestion 2014 Respiratory No cough 09/25/2015 Gastrointestinal No abdominal pain 2014 Gastrointestinal No constipation 2014 Gastrointestinal No diarrhea 09/25/2015 Musculoskeletal No joint complaint 2014 Dermatologic No rash 09/25/2015 Dermatologic No sores 09/25/2015 Neurologic No alteration of consciousness 09/25/2015 Ears/Nose/Throat/Neck No nasal allergies 09/25/2015 Ears/Nose/Throat/Neck No nasal discharge 09/25/2015 Respiratory No productive sputum 2014 Respiratory asthma 09/25/2015 Constitutional recent illness 08/24/2015 Constitutional No anorexia 08/24/2015 Constitutional No night sweats 2014 Constitutional No chills 08/24/2015 Constitutional No diaphoresis 08/24/2015 Constitutional No fatigue 08/24/2015 Constitutional No fever 08/24/2015 Constitutional No insomnia 08/24/2015 Constitutional No malaise 08/24/2015 Constitutional No weight loss 08/24/2015 Constitutional No weight gain 08/24/2015 Eyes No eye discharge 08/24/2015 Eyes No eye erythema 08/24/2015 Ears/Nose/Throat/Neck No dizziness 2014 Ears/Nose/Throat/Neck No headache 2014 Ears/Nose/Throat/Neck nasal allergies 06/2015 Ears/Nose/Throat/Neck nasal discharge 06/2015 Ears/Nose/Throat/Neck otalgia 08/24/2015 Ears/Nose/Throat/Neck sinus congestion Ears/Nose/Throat/Neck sore throat 2014 Cardiovascular No chest pain/pressure 06/2015 Respiratory productive sputum 08/24/2015 Respiratory chest congestion 08/24/2015 Respiratory cough 08/24/2015 Gastrointestinal No abdominal pain 2014 Gastrointestinal No constipation 2014 Gastrointestinal No diarrhea 08/24/2015 Genitourinary/Nephrology No dysuria 08/24 Musculoskeletal No joint complaint 2014 Dermatologic No rash 08/24/2015 Dermatologic No sores 08/24/2015 Neurologic No alteration of consciousness 08/24/2015 Psychiatric No anxiety 08/24/2015 Constitutional recent illness 06/12/2015 Constitutional No anorexia 06/12/2015 Constitutional No night sweats 2014 Constitutional chills 06/12/2015 Constitutional diaphoresis 06/12/2015 Constitutional No fatigue 06/12/2015 Constitutional No fever 06/12/2015 Constitutional No insomnia 06/12/2015 Constitutional No malaise 06/12/2015 Constitutional No weight loss 06/12/2015 Constitutional No weight gain 06/12/2015 Eyes No eye discharge 06/12/2015 Eyes No eye erythema 06/12/2015 Ears/Nose/Throat/Neck No dizziness 2014 Ears/Nose/Throat/Neck headache 2014 Ears/Nose/Throat/Neck nasal allergies Ears/Nose/Throat/Neck nasal discharge Ears/Nose/Throat/Neck No otalgia 2014 Ears/Nose/Throat/Neck sinus congestion Ears/Nose/Throat/Neck sore throat 2014 Cardiovascular No chest pain/pressure Respiratory No productive sputum 2014 Respiratory No chest congestion 2014 Respiratory cough 06/12/2015 Gastrointestinal No abdominal pain 2014 Gastrointestinal No constipation 2014 Gastrointestinal No diarrhea 06/12/2015 Genitourinary/Nephrology No dysuria 06/12 Musculoskeletal No joint complaint 2014 Dermatologic rash 06/12/2015 Genitourinary/Nephrology pelvic pain Constitutional recent illness 05/29/2015 Constitutional No anorexia 05/29/2015 Constitutional No night sweats 2014 Constitutional chills 05/29/2015 Constitutional diaphoresis 05/29/2015 Constitutional No fatigue 05/29/2015 Constitutional No fever 05/29/2015 Constitutional No insomnia 05/29/2015 Constitutional No malaise 05/29/2015 Constitutional No weight loss 05/29/2015 Constitutional No weight gain 05/29/2015 Eyes No eye erythema 05/29/2015 Eyes No eye discharge 05/29/2015 Ears/Nose/Throat/Neck No dizziness 2014 Ears/Nose/Throat/Neck headache 2014 Ears/Nose/Throat/Neck nasal allergies Ears/Nose/Throat/Neck nasal discharge Ears/Nose/Throat/Neck No otalgia 2014 Ears/Nose/Throat/Neck sinus congestion Ears/Nose/Throat/Neck sore throat 2014 Cardiovascular No chest pain/pressure Respiratory No productive sputum 2014 Respiratory No chest congestion 2014 Respiratory cough 05/29/2015 Gastrointestinal No abdominal pain 2014 Gastrointestinal No constipation 2014 Gastrointestinal No diarrhea 05/29/2015 Genitourinary/Nephrology No dysuria 05/29 Musculoskeletal No joint complaint 2014 Dermatologic rash 05/29/2015 Constitutional No night sweats 2014 Constitutional No chills 03/26/2015 Constitutional fatigue 03/26/2015 Constitutional No fever 03/26/2015 Respiratory dyspnea 03/26/2015 Gastrointestinal No constipation 2014 Gastrointestinal diarrhea 03/26/2015 Gastrointestinal No nausea 03/26/2015 Gastrointestinal No vomiting 03/26/2015 Musculoskeletal No back pain 03/26/2015 Dermatologic No rash 03/26/2015 Dermatologic arthropod bite 03/26/2015 Neurologic No hearing loss 03/26/2015 Neurologic No paresthesia 03/26/2015 Neurologic No speech difficulties 2014 Psychiatric No anxiety 03/26/2015 Psychiatric No depression 03/26/2015 Gastrointestinal No constipation 2014 Gastrointestinal diarrhea 03/17/2015 Gastrointestinal No nausea 03/17/2015 Gastrointestinal No vomiting 03/17/2015 Respiratory dyspnea 03/17/2015 Musculoskeletal No back pain 03/17/2015 Constitutional No fever 03/17/2015 Constitutional No chills 03/17/2015 Constitutional No night sweats 2014 Constitutional fatigue 03/17/2015 Dermatologic No rash 03/17/2015 Dermatologic arthropod bite 03/17/2015 Neurologic No hearing loss 03/17/2015 Neurologic No paresthesia 03/17/2015 Neurologic No speech difficulties 2014 Psychiatric No anxiety 03/17/2015 Psychiatric No depression 03/17/2015 Constitutional recent illness 10/15/2014 Constitutional No anorexia 10/15/2014 Constitutional No night sweats 2013 Constitutional No chills 10/15/2014 Constitutional No diaphoresis 10/15/2014 Constitutional fatigue 10/15/2014 Constitutional No fever 10/15/2014 Eyes No eye discharge 10/15/2014 Eyes No eye erythema 10/15/2014 Cardiovascular No chest pain/pressure Cardiovascular dyspnea 10/15/2014 Cardiovascular fatigue 10/15/2014 Respiratory chest tightness 10/15/2014 Respiratory cough 10/15/2014 Gastrointestinal No abdominal pain 2013 Gastrointestinal No constipation 2013 Gastrointestinal No diarrhea 10/15/2014 Gastrointestinal No nausea 10/15/2014 Gastrointestinal No vomiting 10/15/2014 Genitourinary/Nephrology No dysuria 10/15 Musculoskeletal No joint complaint 2013 Dermatologic No rash 10/15/2014 Dermatologic No sores 10/15/2014 Constitutional No recent illness 2013 Constitutional No anorexia 04/10/2014 Constitutional No night sweats 2013 Constitutional No chills 04/10/2014 Constitutional No diaphoresis 04/10/2014 Constitutional fatigue 04/10/2014 Constitutional No fever 04/10/2014 Constitutional No insomnia 04/10/2014 Constitutional No malaise 04/10/2014 Eyes No eye discharge 04/10/2014 Eyes No eye erythema 04/10/2014 Ears/Nose/Throat/Neck No dizziness 2013 Ears/Nose/Throat/Neck nasal allergies Ears/Nose/Throat/Neck nasal discharge Respiratory No cough 04/10/2014 Cardiovascular No chest pain/pressure Dermatologic No rash 04/10/2014 Dermatologic No sores 04/10/2014 Musculoskeletal No joint complaint 2013 Constitutional recent illness 02/17/2014 Constitutional No anorexia 02/17/2014 Constitutional No night sweats 2013 Constitutional No chills 02/17/2014 Constitutional No diaphoresis 02/17/2014 Constitutional fatigue 02/17/2014 Constitutional No fever 02/17/2014 Eyes No eye discharge 02/17/2014 Eyes No eye erythema 02/17/2014 Gastrointestinal No abdominal pain 2013 Gastrointestinal No constipation 2013 Gastrointestinal No diarrhea 02/17/2014 Gastrointestinal No nausea 02/17/2014 Gastrointestinal No vomiting 02/17/2014 Genitourinary/Nephrology No dysuria 02/17 Musculoskeletal No joint complaint 2013 Dermatologic No rash 02/17/2014 Dermatologic No sores 02/17/2014 Respiratory cough 02/17/2014 Respiratory chest tightness 02/17/2014 Cardiovascular No chest pain/pressure 02/2014 Cardiovascular dyspnea 02/17/2014 Cardiovascular fatigue 02/17/2014 Constitutional recent illness 12/05/2013 Constitutional No anorexia 12/05/2013 Constitutional No night sweats 2013 Constitutional No chills 12/05/2013 Constitutional No diaphoresis 12/05/2013 Constitutional fatigue 12/05/2013 Constitutional No fever 12/05/2013 Eyes No eye discharge 12/05/2013 Eyes No eye erythema 12/05/2013 Cardiovascular No chest pain/pressure Respiratory No productive sputum 2013 Respiratory No chest congestion 2013 Respiratory No cough 12/05/2013 Gastrointestinal No abdominal pain 2013 Gastrointestinal No constipation 2013 Gastrointestinal No diarrhea 12/05/2013 Gastrointestinal No nausea 12/05/2013 Gastrointestinal No vomiting 12/05/2013 Genitourinary/Nephrology No dysuria 12/05 Musculoskeletal No joint complaint 2013 Dermatologic No rash 12/05/2013 Dermatologic No sores 12/05/2013 Constitutional No chills 09/25/2013 Constitutional No insomnia 09/25/2013 Eyes No eye discharge 09/25/2013 Eyes No eye erythema 09/25/2013 Ears/Nose/Throat/Neck No hoarseness 09/25 Ears/Nose/Throat/Neck No nasal discharge 09/25/2013 Cardiovascular No chest pain/pressure 08/2013 Cardiovascular No dyspnea 09/25/2013 Cardiovascular No edema 09/25/2013 Cardiovascular No syncope 09/25/2013 Respiratory No chest congestion 2012 Respiratory No chest tightness 2012 Respiratory No cough 09/25/2013 Respiratory No dyspnea on exertion 2012 Respiratory No dyspnea 09/25/2013 Respiratory No wheezing 09/25/2013 Gastrointestinal No anorexia 09/25/2013 Gastrointestinal No constipation 2012 Gastrointestinal No diarrhea 09/25/2013 Gastrointestinal No nausea 09/25/2013 Gastrointestinal No vomiting 09/25/2013 Dermatologic No rash 09/25/2013 Psychiatric No anxiety 09/25/2013 Psychiatric No depression 09/25/2013 Constitutional No chills 07/09/2013 Constitutional No insomnia 07/09/2013 Eyes No eye discharge 07/09/2013 Eyes No eye erythema 07/09/2013 Ears/Nose/Throat/Neck No hoarseness 07/09 Ears/Nose/Throat/Neck No nasal discharge 07/09/2013 Cardiovascular No chest pain/pressure Cardiovascular No dyspnea 07/09/2013 Cardiovascular No edema 07/09/2013 Cardiovascular No syncope 07/09/2013 Respiratory No chest congestion 2012 Respiratory No chest tightness 2012 Respiratory No cough 07/09/2013 Respiratory No dyspnea on exertion 2012 Respiratory No dyspnea 07/09/2013 Respiratory No wheezing 07/09/2013 Gastrointestinal No anorexia 07/09/2013 Gastrointestinal No constipation 2012 Gastrointestinal No diarrhea 07/09/2013 Gastrointestinal No nausea 07/09/2013 Gastrointestinal No vomiting 07/09/2013 Dermatologic No rash 07/09/2013 Psychiatric No anxiety 07/09/2013 Psychiatric No depression 07/09/2013 Constitutional No chills 2013 Constitutional No insomnia 2013 Eyes No eye discharge 2013 Eyes No eye erythema 2013 Ears/Nose/Throat/Neck No hoarseness 06/03 Ears/Nose/Throat/Neck No nasal discharge 2013 Cardiovascular No chest pain/pressure Cardiovascular No dyspnea 2013 Cardiovascular No edema 2013 Cardiovascular No syncope 2013 Respiratory No chest congestion 2012 Respiratory No chest tightness 2012 Respiratory No cough 2013 Respiratory No dyspnea on exertion 2012 Respiratory No dyspnea 2013 Respiratory No wheezing 2013 Gastrointestinal No anorexia 2013 Gastrointestinal No constipation 2012 Gastrointestinal No diarrhea 2013 Gastrointestinal No nausea 2013 Gastrointestinal No vomiting 2013 Dermatologic No rash 2013 Psychiatric No anxiety 2013 Psychiatric No depression 2013 Constitutional No chills 03/22/2013 Constitutional No insomnia 03/22/2013 Eyes No eye discharge 03/22/2013 Eyes No eye erythema 03/22/2013 Ears/Nose/Throat/Neck No hoarseness 03/22 Ears/Nose/Throat/Neck No nasal discharge 03/22/2013 Cardiovascular No chest pain/pressure 04/2013 Cardiovascular No dyspnea 03/22/2013 Cardiovascular No edema 03/22/2013 Cardiovascular No syncope 03/22/2013 Respiratory No chest congestion 2012 Respiratory No chest tightness 2012 Respiratory No cough 03/22/2013 Respiratory No dyspnea on exertion 2012 Respiratory No dyspnea 03/22/2013 Respiratory No wheezing 03/22/2013 Gastrointestinal No anorexia 03/22/2013 Gastrointestinal No constipation 2012 Gastrointestinal No diarrhea 03/22/2013 Gastrointestinal No nausea 03/22/2013 Gastrointestinal No vomiting 03/22/2013 Dermatologic No rash 03/22/2013 Psychiatric No anxiety 03/22/2013 Psychiatric No depression 03/22/2013 Respiratory No chest tightness 2012 Respiratory No cough 02/28/2013 Respiratory No dyspnea on exertion 2012 Respiratory No dyspnea 02/28/2013 Respiratory No wheezing 02/28/2013 Gastrointestinal No anorexia 02/28/2013 Gastrointestinal No constipation 2012 Gastrointestinal No diarrhea 02/28/2013 Gastrointestinal No nausea 02/28/2013 Gastrointestinal No vomiting 02/28/2013 Dermatologic No rash 02/28/2013 Psychiatric No anxiety 02/28/2013 Psychiatric No depression 02/28/2013 Constitutional No chills 02/28/2013 Constitutional No insomnia 02/28/2013 Eyes No eye discharge 02/28/2013 Eyes No eye erythema 02/28/2013 Ears/Nose/Throat/Neck No hoarseness 02/28 Ears/Nose/Throat/Neck No nasal discharge 02/28/2013 Cardiovascular No chest pain/pressure Cardiovascular No dyspnea 02/28/2013 Cardiovascular No edema 02/28/2013 Cardiovascular No syncope 02/28/2013 Respiratory No chest congestion 2012 Constitutional recent illness 10/23/2012 Constitutional No anorexia 10/23/2012 Constitutional No night sweats 2012 Constitutional No chills 10/23/2012 Constitutional No diaphoresis 10/23/2012 Constitutional fatigue 10/23/2012 Constitutional No fever 10/23/2012 Eyes No eye erythema 10/23/2012 Eyes No eye discharge 10/23/2012 Cardiovascular No chest pain/pressure 05/2013 Respiratory No productive sputum 2012 Respiratory No chest congestion 2012 Respiratory No cough 10/23/2012 Gastrointestinal No abdominal pain 2012 Gastrointestinal No constipation 2012 Gastrointestinal No diarrhea 10/23/2012 Gastrointestinal No nausea 10/23/2012 Gastrointestinal No vomiting 10/23/2012 Genitourinary/Nephrology No dysuria 10/23 Musculoskeletal No joint complaint 2012 Dermatologic No rash 10/23/2012 Dermatologic No sores 10/23/2012 Constitutional No chills 03/08/2012 Constitutional No fatigue 03/08/2012 Constitutional No insomnia 03/08/2012 Eyes No eye discharge 03/08/2012 Eyes No eye erythema 03/08/2012 Ears/Nose/Throat/Neck No hoarseness 03/08 Ears/Nose/Throat/Neck No nasal discharge 03/08/2012 Cardiovascular No chest pain/pressure Cardiovascular No dyspnea 03/08/2012 Cardiovascular No edema 03/08/2012 Cardiovascular No syncope 03/08/2012 Respiratory No chest congestion 2011 Respiratory No chest tightness 2011 Respiratory No cough 03/08/2012 Respiratory No dyspnea on exertion 2011 Respiratory No dyspnea 03/08/2012 Respiratory No wheezing 03/08/2012 Gastrointestinal No anorexia 03/08/2012 Gastrointestinal No constipation 2011 Gastrointestinal No diarrhea 03/08/2012 Gastrointestinal No nausea 03/08/2012 Gastrointestinal No vomiting 03/08/2012 Dermatologic No rash 03/08/2012 Psychiatric No anxiety 03/08/2012 Psychiatric No depression 03/08/2012 Constitutional No chills 09/28/2011 Constitutional No fatigue 09/28/2011 Constitutional No insomnia 09/28/2011 Eyes No eye discharge 09/28/2011 Eyes No eye erythema 09/28/2011 Ears/Nose/Throat/Neck No hoarseness 09/28 Ears/Nose/Throat/Neck No nasal discharge 09/28/2011 Cardiovascular No chest pain/pressure Cardiovascular No dyspnea 09/28/2011 Cardiovascular No edema 09/28/2011 Cardiovascular No syncope 09/28/2011 Respiratory No chest congestion 2010 Respiratory No chest tightness 2010 Respiratory No cough 09/28/2011 Respiratory No dyspnea on exertion 2010 Respiratory No dyspnea 09/28/2011 Respiratory No wheezing 09/28/2011 Gastrointestinal No anorexia 09/28/2011 Gastrointestinal No constipation 2010 Gastrointestinal No diarrhea 09/28/2011 Gastrointestinal No nausea 09/28/2011 Gastrointestinal No vomiting 09/28/2011 Dermatologic No rash 09/28/2011 Psychiatric No anxiety 09/28/2011 Psychiatric No depression 09/28/2011 Eyes No eye discharge 06/27/2011 Eyes No eye erythema 06/27/2011 Ears/Nose/Throat/Neck facial pain 2010 Ears/Nose/Throat/Neck headache 2010 Ears/Nose/Throat/Neck No hoarseness 06/27 Ears/Nose/Throat/Neck nasal allergies 09/2011 Ears/Nose/Throat/Neck No nasal discharge 06/27/2011 Ears/Nose/Throat/Neck sinus congestion Ears/Nose/Throat/Neck sore throat 2010 Ears/Nose/Throat/Neck postnasal drip 09/2011 Cardiovascular No chest pain/pressure 09/2011 Cardiovascular No edema 06/27/2011 Cardiovascular No dyspnea 06/27/2011 Cardiovascular No syncope 06/27/2011 Respiratory No cough 06/27/2011 Respiratory No chest congestion 2010 Respiratory No chest tightness 2010 Respiratory No dyspnea on exertion 2010 Respiratory No dyspnea 06/27/2011 Respiratory No wheezing 06/27/2011 Gastrointestinal No nausea 06/27/2011 Gastrointestinal No vomiting 06/27/2011 Gastrointestinal No anorexia 06/27/2011 Gastrointestinal No diarrhea 06/27/2011 Gastrointestinal No constipation 2010 Dermatologic No rash 06/27/2011 Constitutional recent illness 06/27/2011 Constitutional No chills 06/27/2011 Constitutional No fatigue 06/27/2011 Constitutional fever 06/27/2011 Constitutional No insomnia 06/27/2011 Physical Exam Exam Name System Name Item Name Status Result Effective Dates Notes Full Exam - General 1994 Constitutional general appearance Overall: well developed 11/19/2018 None Full Exam - General 1994 Constitutional general appearance Overall: in no acute distress 11/19/2018 None Full Exam - General 1994 Constitutional general appearance Overall: well nourished 11/19/2018 None Full Exam - General 1994 Eyes pupils and irises Overall: pupils equal, round, reactive to light and accomodation 11/19/2018 facial flattening on right from hair-line to chin Full Exam - General 1994 Ears/Nose/Throat otoscopic exam Overall: external auditory canals clear 11/19/2018 None Full Exam - General 1994 Ears/Nose/Throat otoscopic exam Overall: tympanic membranes clear 11/19/2018 None Full Exam - General 1994 Ears/Nose/Throat oral cavity/pharynx/larynx Overall: oral mucosa clear 11/19/2018 None Full Exam - General 1994 Ears/Nose/Throat oral cavity/pharynx/larynx Overall: oropharyngeal mucosa clear 11/19/2018 None Full Exam - General 1994 Ears/Nose/Throat oral cavity/pharynx/larynx Overall: no masses 11/19/2018 None Full Exam - General 1994 Respiratory auscultation Overall: breath sounds clear bilaterally 11/19/2018 None Full Exam - General 1994 Respiratory respiratory effort/rhythm Overall: no retractions 11/19/2018 None Full Exam - General 1994 Respiratory respiratory effort/rhythm Overall: normal rate 11/19/2018 None Full Exam - General 1994 Cardiovascular auscultation of heart Overall: regular rate 11/19/2018 None Full Exam - General 1994 Cardiovascular auscultation of heart Overall: normal heart sounds 11/19/2018 None Full Exam - General 1994 Psychiatric orientation/consciousness Overall: oriented to person, place and time 11/19/2018 None Full Exam - General 1994 Psychiatric mood and affect Overall: normal mood and affect 11/19/2018 None Full Exam - General 1994 Constitutional general appearance Overall: well developed 11/07/2018 None Full Exam - General 1994 Constitutional general appearance Overall: in no acute distress 11/07/2018 None Full Exam - General 1994 Constitutional general appearance Overall: well nourished 11/07/2018 None Full Exam - General 1994 Eyes pupils and irises Overall: pupils equal, round, reactive to light and accomodation 11/07/2018 facial flattening on right from hair-line to chin Full Exam - General 1994 Ears/Nose/Throat oral cavity/pharynx/larynx Overall: oral mucosa clear 11/07/2018 None Full Exam - General 1994 Ears/Nose/Throat oral cavity/pharynx/larynx Overall: oropharyngeal mucosa clear 11/07/2018 None Full Exam - General 1994 Ears/Nose/Throat oral cavity/pharynx/larynx Overall: no masses 11/07/2018 None Full Exam - General 1994 Respiratory auscultation Overall: breath sounds clear bilaterally 11/07/2018 None Full Exam - General 1994 Respiratory respiratory effort/rhythm Overall: no retractions 11/07/2018 None Full Exam - General 1994 Respiratory respiratory effort/rhythm Overall: normal rate 11/07/2018 None Full Exam - General 1994 Cardiovascular auscultation of heart Overall: regular rate 11/07/2018 None Full Exam - General 1994 Cardiovascular auscultation of heart Overall: normal heart sounds 11/07/2018 None Full Exam - General 1994 Neurologic gait Overall: no ataxia, no unsteadiness 11/07/2018 None Full Exam - General 1994 Psychiatric orientation/consciousness Overall: oriented to person, place and time 11/07/2018 None Full Exam - General 1994 Psychiatric mood and affect Overall: normal mood and affect 11/07/2018 None Full Exam - General 1994 Neurologic cranial nerves CN5: sensation decreased in V1 11/07/2018 on right Full Exam - General 1994 Neurologic cranial nerves CN5: sensation decreased in V2 11/07/2018 on right Full Exam - General 1994 Neurologic cranial nerves CN5: sensation decreased in V3 11/07/2018 on right Full Exam - General 1994 Ears/Nose/Throat otoscopic exam Overall: tympanic membranes clear 11/07/2018 None Full Exam - General 1994 Ears/Nose/Throat otoscopic exam Overall: external auditory canals clear 11/07/2018 None Full Exam - General 1994 Constitutional general appearance Overall: well developed 09/04/2018 None Full Exam - General 1994 Constitutional general appearance Overall: in no acute distress 09/04/2018 None Full Exam - General 1994 Constitutional general appearance Overall: well nourished 09/04/2018 None Full Exam - General 1994 Eyes pupils and irises Overall: pupils equal, round, reactive to light and accomodation 09/04/2018 None Full Exam - General 1994 Ears/Nose/Throat oral cavity/pharynx/larynx Overall: oral mucosa clear 09/04/2018 None Full Exam - General 1994 Ears/Nose/Throat oral cavity/pharynx/larynx Overall: oropharyngeal mucosa clear 09/04/2018 None Full Exam - General 1994 Ears/Nose/Throat oral cavity/pharynx/larynx Overall: no masses 09/04/2018 None Full Exam - General 1994 Respiratory auscultation Overall: breath sounds clear bilaterally 09/04/2018 None Full Exam - General 1994 Respiratory respiratory effort/rhythm Overall: no retractions 09/04/2018 None Full Exam - General 1994 Respiratory respiratory effort/rhythm Overall: normal rate 09/04/2018 None Full Exam - General 1994 Cardiovascular auscultation of heart Overall: regular rate 09/04/2018 None Full Exam - General 1994 Cardiovascular auscultation of heart Overall: normal heart sounds 09/04/2018 None Full Exam - General 1994 Abdomen abdominal exam Overall: no tenderness 09/04/2018 None Full Exam - General 1994 Abdomen abdominal exam Overall: normal bowel sounds 09/04/2018 None Full Exam - General 1994 Musculoskeletal upper extremity Inspection - carpals: a normal exam 09/04/2018 None Full Exam - General 1994 Musculoskeletal upper extremity Inspection - metacarpales: swelling 09/04/2018 None Full Exam - General 1994 Neurologic gait Overall: no ataxia, no unsteadiness 09/04/2018 None Full Exam - General 1994 Neurologic cranial nerves Overall: crainial nerves 2 - 12 grossly intact 09/04/2018 None Full Exam - General 1994 Psychiatric orientation/consciousness Overall: oriented to person, place and time 09/04/2018 None Full Exam - General 1994 Psychiatric mood and affect Overall: normal mood and affect 09/04/2018 None Full Exam - General 1994 Constitutional general appearance Overall: well developed 07/10/2018 None Full Exam - General 1994 Constitutional general appearance Overall: in no acute distress 07/10/2018 None Full Exam - General 1994 Constitutional general appearance Overall: well nourished 07/10/2018 None Full Exam - General 1994 Eyes pupils and irises Overall: pupils equal, round, reactive to light and accomodation 07/10/2018 None Full Exam - General 1994 Ears/Nose/Throat oral cavity/pharynx/larynx Overall: oral mucosa clear 07/10/2018 None Full Exam - General 1994 Ears/Nose/Throat oral cavity/pharynx/larynx Overall: oropharyngeal mucosa clear 07/10/2018 None Full Exam - General 1994 Ears/Nose/Throat oral cavity/pharynx/larynx Overall: no masses 07/10/2018 None Full Exam - General 1994 Respiratory auscultation Overall: breath sounds clear bilaterally 07/10/2018 None Full Exam - General 1994 Respiratory respiratory effort/rhythm Overall: no retractions 07/10/2018 None Full Exam - General 1994 Respiratory respiratory effort/rhythm Overall: normal rate 07/10/2018 None Full Exam - General 1994 Cardiovascular auscultation of heart Overall: regular rate 07/10/2018 None Full Exam - General 1994 Cardiovascular auscultation of heart Overall: normal heart sounds 07/10/2018 None Full Exam - General 1994 Abdomen abdominal exam Overall: no tenderness 07/10/2018 None Full Exam - General 1994 Abdomen abdominal exam Overall: normal bowel sounds 07/10/2018 None Full Exam - General 1994 Musculoskeletal upper extremity Inspection - carpals: a normal exam 07/10/2018 None Full Exam - General 1994 Musculoskeletal upper extremity Inspection - metacarpales: swelling 07/10/2018 None Full Exam - General 1994 Neurologic gait Overall: no ataxia, no unsteadiness 07/10/2018 None Full Exam - General 1994 Neurologic cranial nerves Overall: crainial nerves 2 - 12 grossly intact 07/10/2018 None Full Exam - General 1994 Psychiatric orientation/consciousness Overall: oriented to person, place and time 07/10/2018 None Full Exam - General 1994 Psychiatric mood and affect Overall: normal mood and affect 07/10/2018 None Full Exam - General 1994 Constitutional general appearance Overall: well developed 06/19/2018 None Full Exam - General 1994 Constitutional general appearance Overall: in no acute distress 06/19/2018 None Full Exam - General 1994 Constitutional general appearance Overall: well nourished 06/19/2018 None Full Exam - General 1994 Eyes conjunctiva /eyelids Overall: conjunctiva clear 06/19/2018 None Full Exam - General 1994 Eyes conjunctiva /eyelids Overall: eyelids normal 06/19/2018 None Full Exam - General 1994 Ears/Nose/Throat lips/teeth/gingiva Overall: benign lips 06/19/2018 None Full Exam - General 1994 Ears/Nose/Throat oral cavity/pharynx/larynx Overall: oral mucosa clear 06/19/2018 None Full Exam - General 1994 Respiratory auscultation Overall: breath sounds clear bilaterally 06/19/2018 None Full Exam - General 1994 Respiratory respiratory effort/rhythm Overall: no retractions 06/19/2018 None Full Exam - General 1994 Respiratory respiratory effort/rhythm Overall: normal rate 06/19/2018 None Full Exam - General 1994 Cardiovascular extremities Overall: no clubbing 06/19/2018 None Full Exam - General 1994 Cardiovascular auscultation of heart Overall: regular rate 06/19/2018 None Full Exam - General 1994 Cardiovascular auscultation of heart Overall: normal heart sounds 06/19/2018 None Full Exam - General 1994 Musculoskeletal head and neck Overall: head atraumatic 06/19/2018 None Full Exam - General 1994 Psychiatric orientation/consciousness Overall: oriented to person, place and time 06/19/2018 None Full Exam - General 1994 Psychiatric mood and affect Overall: normal mood and affect 06/19/2018 None Full Exam - General 1994 Psychiatric appearance Overall: well-groomed, good eye contact 06/19/2018 None Full Exam - Orthopedics Constitutional general appearance Overall: well nourished 01/29/2018 None Full Exam - Orthopedics Constitutional general appearance Overall: well developed 01/29/2018 None Full Exam - Orthopedics Constitutional general appearance Overall: in no acute distress 01/29/2018 None Full Exam - Orthopedics Eyes conjunctiva/ eyelids Overall: conjunctiva clear 01/29/2018 None Full Exam - Orthopedics Eyes conjunctiva/ eyelids Overall: eyelids normal 01/29/2018 None Full Exam - Orthopedics Ears/Nose/Throat lips/teeth/gingiva Overall: benign lips 01/29/2018 None Full Exam - Orthopedics Ears/Nose/Throat oral cavity/pharynx/larynx Overall: oral mucosa clear 01/29/2018 None Full Exam - Orthopedics Respiratory respiratory effort/rhythm Overall: no retractions 01/29/2018 None Full Exam - Orthopedics Respiratory respiratory effort/rhythm Overall: normal rate 01/29/2018 None Full Exam - Orthopedics Psychiatric orientation/consciousness Overall: oriented to person, place and time 01/29/2018 None Full Exam - Orthopedics Psychiatric mood and affect Overall: normal mood and affect 01/29/2018 None Full Exam - Orthopedics Psychiatric appearance Overall: well-groomed, good eye contact 01/29/2018 None Full Exam - Orthopedics MS: spine/rib/pelvis insp & palp - S/R/P Lumbar spine palpation: tender lumbar spinous processes 01/29/2018 None Full Exam - Orthopedics MS: spine/rib/pelvis insp & palp - S/R/P Lumbar spine palpation: tender facet joints 01/29/2018 None Full Exam - Orthopedics MS: spine/rib/pelvis insp & palp - S/R/P Sacroiliac palpation: right sacroiliac joint tenderness 01/29/2018 None Full Exam - General 1994 Constitutional general appearance Overall: well developed 01/08/2018 None Full Exam - General 1994 Constitutional general appearance Overall: in no acute distress 01/08/2018 None Full Exam - General 1994 Constitutional general appearance Overall: well nourished 01/08/2018 None Full Exam - General 1994 Eyes conjunctiva /eyelids Overall: conjunctiva clear 01/08/2018 None Full Exam - General 1994 Eyes conjunctiva /eyelids Overall: eyelids normal 01/08/2018 None Full Exam - General 1994 Ears/Nose/Throat lips/teeth/gingiva Overall: benign lips 01/08/2018 None Full Exam - General 1994 Ears/Nose/Throat oral cavity/pharynx/larynx Overall: oral mucosa clear 01/08/2018 None Full Exam - General 1994 Respiratory auscultation Overall: breath sounds clear bilaterally 01/08/2018 None Full Exam - General 1994 Respiratory respiratory effort/rhythm Overall: no retractions 01/08/2018 None Full Exam - General 1994 Respiratory respiratory effort/rhythm Overall: normal rate 01/08/2018 None Full Exam - General 1994 Cardiovascular extremities Overall: no clubbing 01/08/2018 None Full Exam - General 1994 Cardiovascular auscultation of heart Overall: regular rate 01/08/2018 None Full Exam - General 1994 Cardiovascular auscultation of heart Overall: normal heart sounds 01/08/2018 None Full Exam - General 1994 Musculoskeletal head and neck Overall: head atraumatic 01/08/2018 None Full Exam - General 1994 Psychiatric orientation/consciousness Overall: oriented to person, place and time 01/08/2018 None Full Exam - General 1994 Psychiatric mood and affect Overall: normal mood and affect 01/08/2018 None Full Exam - General 1994 Psychiatric appearance Overall: well-groomed, good eye contact 01/08/2018 None Full Exam - ENT Constitutional general appearance Overall: well nourished 08/21/2017 None Full Exam - ENT Constitutional general appearance Overall: well developed 08/21/2017 None Full Exam - ENT Constitutional general appearance Overall: in no acute distress 08/21/2017 None Full Exam - ENT Ears/Nose/Throat otoscopic exam Left tympanic membrane: air -fluid level 08/21/2017 None Full Exam - ENT Ears/Nose/Throat lips/ teeth/gingiva Overall: benign lips 08/21/2017 None Full Exam - ENT Ears/Nose/Throat oropharynx Overall: oral mucosa clear 08/21/2017 None Full Exam - ENT Face and Head palpation Left maxillary sinus: nontender 08/21/2017 None Full Exam - ENT Face and Head palpation Right maxillary sinus: nontender 08/21/2017 None Full Exam - ENT Cardiovascular auscultation of heart Overall: regular rate 08/21/2017 None Full Exam - ENT Cardiovascular auscultation of heart Overall: normal heart sounds 08/21/2017 None Full Exam - ENT Lymphatic palpation of lymph nodes Overall: anterior cervical chain benign 08/21/2017 None Full Exam - ENT Lymphatic palpation of lymph nodes Overall: posterior cervical chain benign 08/21/2017 None Full Exam - ENT Musculoskeletal head and neck Overall: head atraumatic 08/21/2017 None Full Exam - ENT Musculoskeletal gait and station Overall: normal gait 08/21/2017 None Full Exam - ENT Musculoskeletal gait and station Overall: normal station 08/21/2017 None Full Exam - ENT Neurologic cranial nerves /coordination Overall: cranial nerves 2- 12 grossly intact 08/21/2017 None Full Exam - ENT Ears/Nose/Throat otoscopic exam Right tympanic membrane: air-fluid level 08/21/2017 None Full Exam - ENT Ears/Nose/Throat oropharynx Posterior Pharynx: clear post nasal drainage 08/21/2017 None Full Exam - ENT Ears/Nose/Throat oropharynx Posterior Pharynx: erythema 08/21/2017 None Full Exam - ENT Respiratory auscultation Diffuse: expiratory wheezes 08/21/2017 None Full Exam - General 1994 Constitutional general appearance Overall: well developed 07/18/2017 None Full Exam - General 1994 Constitutional general appearance Overall: in no acute distress 07/18/2017 None Full Exam - General 1994 Constitutional general appearance Overall: well nourished 07/18/2017 None Full Exam - General 1994 Eyes pupils and irises Overall: pupils equal, round, reactive to light and accomodation 07/18/2017 None Full Exam - General 1994 Ears/Nose/Throat oral cavity/pharynx/larynx Overall: oral mucosa clear 07/18/2017 None Full Exam - General 1994 Ears/Nose/Throat oral cavity/pharynx/larynx Overall: oropharyngeal mucosa clear 07/18/2017 None Full Exam - General 1994 Ears/Nose/Throat oral cavity/pharynx/larynx Overall: no masses 07/18/2017 None Full Exam - General 1994 Respiratory auscultation Overall: breath sounds clear bilaterally 07/18/2017 None Full Exam - General 1994 Respiratory respiratory effort/rhythm Overall: no retractions 07/18/2017 None Full Exam - General 1994 Respiratory respiratory effort/rhythm Overall: normal rate 07/18/2017 None Full Exam - General 1994 Cardiovascular auscultation of heart Overall: regular rate 07/18/2017 None Full Exam - General 1994 Cardiovascular auscultation of heart Overall: normal heart sounds 07/18/2017 None Full Exam - General 1994 Abdomen abdominal exam Overall: no tenderness 07/18/2017 None Full Exam - General 1994 Abdomen abdominal exam Overall: normal bowel sounds 07/18/2017 None Full Exam - General 1994 Musculoskeletal upper extremity Inspection - carpals: a normal exam 07/18/2017 None Full Exam - General 1994 Musculoskeletal upper extremity Inspection - metacarpales: swelling 07/18/2017 None Full Exam - General 1994 Neurologic gait Overall: no ataxia, no unsteadiness 07/18/2017 None Full Exam - General 1994 Neurologic cranial nerves Overall: crainial nerves 2 - 12 grossly intact 07/18/2017 None Full Exam - General 1994 Psychiatric orientation/consciousness Overall: oriented to person, place and time 07/18/2017 None Full Exam - General 1994 Psychiatric mood and affect Overall: normal mood and affect 07/18/2017 None Full Exam - ENT Constitutional general appearance Overall: well nourished 06/30/2017 None Full Exam - ENT Constitutional general appearance Overall: well developed 06/30/2017 None Full Exam - ENT Constitutional general appearance Overall: in no acute distress 06/30/2017 None Full Exam - ENT Eyes ocular motility Overall: extraocular movement intact 06/30/2017 None Full Exam - ENT Ears/Nose/Throat otoscopic exam Left external auditory canal: a normal exam 06/30/2017 None Full Exam - ENT Ears/Nose/Throat otoscopic exam Right external auditory canal: a normal exam 06/30/2017 None Full Exam - ENT Ears/Nose/Throat otoscopic exam Right external auditory canal: complete cerumen impaction 06/30/2017 None Full Exam - ENT Ears/Nose/Throat otoscopic exam Left tympanic membrane: air -fluid level 06/30/2017 None Full Exam - ENT Ears/Nose/Throat otoscopic exam Right tympanic membrane: not visualized 06/30/2017 None Full Exam - ENT Ears/Nose/Throat external ear and nose Overall: normal appearance 06/30/2017 None Full Exam - ENT Ears/Nose/Throat nasal mucosa, septum, turbinates Overall: nasal mucosa clear 06/30/2017 None Full Exam - ENT Ears/Nose/Throat lips/ teeth/gingiva Overall: benign lips 06/30/2017 None Full Exam - ENT Ears/Nose/Throat oropharynx Overall: oral mucosa clear 06/30/2017 None Full Exam - ENT Face and Head inspection of face/head Overall: no scars, lesions, masses 06/30/2017 None Full Exam - ENT Neck inspection of neck Overall: normal size None Full Exam - ENT Neck inspection of neck Overall: normal appearance 06/30/2017 None Full Exam - ENT Respiratory auscultation Overall: breath sounds clear bilaterally 06/30/2017 None Full Exam - ENT Cardiovascular auscultation of heart Overall: regular rate 06/30/2017 None Full Exam - ENT Cardiovascular auscultation of heart Overall: normal heart sounds 06/30/2017 None Full Exam - ENT Cardiovascular auscultation of heart Overall: no murmurs 06/30/2017 None Full Exam - ENT Abdomen abdominal exam Overall: no tenderness 06/30/2017 None Full Exam - ENT Abdomen abdominal exam Overall: normal bowel sounds 06/30/2017 None Full Exam - ENT Musculoskeletal head and neck Overall: head atraumatic 06/30/2017 None Full Exam - ENT Musculoskeletal gait and station Overall: normal gait 06/30/2017 None Full Exam - ENT Musculoskeletal gait and station Overall: normal station 06/30/2017 None Full Exam - ENT Neurologic cranial nerves /coordination Overall: cranial nerves 2- 12 grossly intact 06/30/2017 None Full Exam - ENT Face and Head palpation Right maxillary sinus: nontender 06/30/2017 None Full Exam - ENT Face and Head palpation Left maxillary sinus: nontender 06/30/2017 None Full Exam - ENT Lymphatic palpation of lymph nodes Overall: posterior cervical chain benign 06/30/2017 None Full Exam - ENT Lymphatic palpation of lymph nodes Overall: anterior cervical chain benign 06/30/2017 None Full Exam - General 1994 Constitutional general appearance Overall: well developed 05/08/2017 None Full Exam - General 1994 Constitutional general appearance Overall: in no acute distress 05/08/2017 None Full Exam - General 1994 Constitutional general appearance Overall: well nourished 05/08/2017 None Full Exam - General 1994 Eyes conjunctiva /eyelids Overall: conjunctiva clear 05/08/2017 None Full Exam - General 1994 Eyes conjunctiva /eyelids Overall: eyelids normal 05/08/2017 None Full Exam - General 1994 Ears/Nose/Throat lips/teeth/gingiva Overall: benign lips 05/08/2017 None Full Exam - General 1994 Ears/Nose/Throat oral cavity/pharynx/larynx Overall: oral mucosa clear 05/08/2017 None Full Exam - General 1994 Ears/Nose/Throat oral cavity/pharynx/larynx Overall: oropharyngeal mucosa clear 05/08/2017 None Full Exam - General 1994 Ears/Nose/Throat otoscopic exam External auditory canal: partial cerumen occlusion 05/08/2017 None Full Exam - General 1994 Ears/Nose/Throat otoscopic exam Overall: tympanic membranes clear 05/08/2017 None Full Exam - General 1994 Eyes pupils and irises Overall: pupils equal, round, reactive to light and accomodation 05/08/2017 None Full Exam - General 1994 Respiratory respiratory effort/rhythm Overall: no retractions 05/08/2017 None Full Exam - General 1994 Respiratory respiratory effort/rhythm Overall: normal rate 05/08/2017 None Full Exam - General 1994 Respiratory auscultation Overall: breath sounds clear bilaterally 05/08/2017 None Full Exam - General 1994 Respiratory auscultation Diffuse: diminished 05/08/2017 None Full Exam - General 1994 Cardiovascular auscultation of heart Overall: regular rate 05/08/2017 None Full Exam - General 1994 Cardiovascular auscultation of heart Overall: normal heart sounds 05/08/2017 None Full Exam - General 1994 Musculoskeletal head and neck Overall: head atraumatic 05/08/2017 None Full Exam - General 1994 Musculoskeletal gait and station Overall: normal gait 05/08/2017 None Full Exam - General 1994 Musculoskeletal gait and station Overall: normal station 05/08/2017 None Full Exam - General 1994 Lymphatic neck nodes Overall: posterior cervical chain benign 05/08/2017 None Full Exam - General 1994 Lymphatic neck nodes Overall: anterior cervical chain benign 05/08/2017 None Full Exam - General 1994 Neurologic cranial nerves Overall: crainial nerves 2 - 12 grossly intact 05/08/2017 None Full Exam - General 1994 Psychiatric orientation/consciousness Overall: oriented to person, place and time 05/08/2017 None Full Exam - General 1994 Psychiatric mood and affect Overall: normal mood and affect 05/08/2017 None Full Exam - General 1994 Psychiatric appearance Overall: well-groomed, good eye contact 05/08/2017 None Full Exam - General 1994 Psychiatric speech Overall: normal quality, no aphasia 05/08/2017 None Full Exam - General 1994 Psychiatric speech Overall: normal quality, quantity, rate 05/08/2017 None Full Exam - General 1994 Musculoskeletal spine, ribs and pelvis Spine: tender @ lumbar spine 05/08/2017 None Full Exam - General 1994 Constitutional general appearance Overall: well developed 02/14/2017 None Full Exam - General 1994 Constitutional general appearance Overall: in no acute distress 02/14/2017 None Full Exam - General 1994 Constitutional general appearance Overall: well nourished 02/14/2017 None Full Exam - General 1994 Eyes pupils and irises Overall: pupils equal, round, reactive to light and accomodation 02/14/2017 None Full Exam - General 1994 Ears/Nose/Throat oral cavity/pharynx/larynx Overall: oral mucosa clear 02/14/2017 None Full Exam - General 1994 Ears/Nose/Throat oral cavity/pharynx/larynx Overall: oropharyngeal mucosa clear 02/14/2017 None Full Exam - General 1994 Ears/Nose/Throat oral cavity/pharynx/larynx Overall: no masses 02/14/2017 None Full Exam - General 1994 Respiratory auscultation Overall: breath sounds clear bilaterally 02/14/2017 None Full Exam - General 1994 Respiratory respiratory effort/rhythm Overall: no retractions 02/14/2017 None Full Exam - General 1994 Respiratory respiratory effort/rhythm Overall: normal rate 02/14/2017 None Full Exam - General 1994 Cardiovascular auscultation of heart Overall: regular rate 02/14/2017 None Full Exam - General 1994 Cardiovascular auscultation of heart Overall: normal heart sounds 02/14/2017 None Full Exam - General 1994 Abdomen abdominal exam Overall: no tenderness 02/14/2017 None Full Exam - General 1994 Abdomen abdominal exam Overall: normal bowel sounds 02/14/2017 None Full Exam - General 1994 Musculoskeletal upper extremity Inspection - carpals: a normal exam 02/14/2017 None Full Exam - General 1994 Musculoskeletal upper extremity Inspection - metacarpales: swelling 02/14/2017 None Full Exam - General 1994 Neurologic gait Overall: no ataxia, no unsteadiness 02/14/2017 None Full Exam - General 1994 Neurologic cranial nerves Overall: crainial nerves 2 - 12 grossly intact 02/14/2017 None Full Exam - General 1994 Psychiatric orientation/consciousness Overall: oriented to person, place and time 02/14/2017 None Full Exam - General 1994 Psychiatric mood and affect Overall: normal mood and affect 02/14/2017 None Full Exam - General 1994 Constitutional general appearance Overall: well developed 01/31/2017 None Full Exam - General 1994 Constitutional general appearance Overall: in no acute distress 01/31/2017 None Full Exam - General 1994 Constitutional general appearance Overall: well nourished 01/31/2017 None Full Exam - General 1994 Eyes pupils and irises Overall: pupils equal, round, reactive to light and accomodation 01/31/2017 None Full Exam - General 1994 Ears/Nose/Throat oral cavity/pharynx/larynx Overall: oral mucosa clear 01/31/2017 None Full Exam - General 1994 Ears/Nose/Throat oral cavity/pharynx/larynx Overall: oropharyngeal mucosa clear 01/31/2017 None Full Exam - General 1994 Ears/Nose/Throat oral cavity/pharynx/larynx Overall: no masses 01/31/2017 None Full Exam - General 1994 Respiratory auscultation Overall: breath sounds clear bilaterally 01/31/2017 None Full Exam - General 1994 Respiratory respiratory effort/rhythm Overall: no retractions 01/31/2017 None Full Exam - General 1994 Respiratory respiratory effort/rhythm Overall: normal rate 01/31/2017 None Full Exam - General 1994 Cardiovascular auscultation of heart Overall: regular rate 01/31/2017 None Full Exam - General 1994 Cardiovascular auscultation of heart Overall: normal heart sounds 01/31/2017 None Full Exam - General 1994 Abdomen abdominal exam Overall: no tenderness 01/31/2017 None Full Exam - General 1994 Abdomen abdominal exam Overall: normal bowel sounds 01/31/2017 None Full Exam - General 1994 Musculoskeletal upper extremity Inspection - carpals: a normal exam 01/31/2017 None Full Exam - General 1994 Musculoskeletal upper extremity Inspection - metacarpales: swelling 01/31/2017 None Full Exam - General 1994 Neurologic gait Overall: no ataxia, no unsteadiness 01/31/2017 None Full Exam - General 1994 Neurologic cranial nerves Overall: crainial nerves 2 - 12 grossly intact 01/31/2017 None Full Exam - General 1994 Psychiatric orientation/consciousness Overall: oriented to person, place and time 01/31/2017 None Full Exam - General 1994 Psychiatric mood and affect Overall: normal mood and affect 01/31/2017 None Full Exam - ENT Constitutional general appearance Overall: well nourished 01/30/2017 None Full Exam - ENT Constitutional general appearance Overall: well developed 01/30/2017 None Full Exam - ENT Constitutional general appearance Overall: in no acute distress 01/30/2017 None Full Exam - ENT Eyes ocular motility Overall: extraocular movement intact 01/30/2017 None Full Exam - ENT Ears/Nose/Throat otoscopic exam Left external auditory canal: a normal exam 01/30/2017 None Full Exam - ENT Ears/Nose/Throat otoscopic exam Right external auditory canal: a normal exam 01/30/2017 None Full Exam - ENT Ears/Nose/Throat otoscopic exam Right external auditory canal: complete cerumen impaction 01/30/2017 None Full Exam - ENT Ears/Nose/Throat otoscopic exam Left tympanic membrane: air -fluid level 01/30/2017 None Full Exam - ENT Ears/Nose/Throat otoscopic exam Right tympanic membrane: not visualized 01/30/2017 None Full Exam - ENT Ears/Nose/Throat external ear and nose Overall: normal appearance 01/30/2017 None Full Exam - ENT Ears/Nose/Throat nasal mucosa, septum, turbinates Overall: nasal mucosa clear 01/30/2017 None Full Exam - ENT Ears/Nose/Throat lips/ teeth/gingiva Overall: benign lips 01/30/2017 None Full Exam - ENT Ears/Nose/Throat oropharynx Overall: oral mucosa clear 01/30/2017 None Full Exam - ENT Face and Head inspection of face/head Overall: no scars, lesions, masses 01/30/2017 None Full Exam - ENT Face and Head palpation Left maxillary sinus: tender 01/30/2017 None Full Exam - ENT Face and Head palpation Right maxillary sinus: tender 01/30/2017 None Full Exam - ENT Face and Head palpation Left frontal sinus: tender 01/30/2017 None Full Exam - ENT Face and Head palpation Right frontal sinus: tender 01/30/2017 None Full Exam - ENT Neck inspection of neck Overall: normal size None Full Exam - ENT Neck inspection of neck Overall: normal appearance 01/30/2017 None Full Exam - ENT Respiratory auscultation Overall: breath sounds clear bilaterally 01/30/2017 None Full Exam - ENT Cardiovascular auscultation of heart Overall: regular rate 01/30/2017 None Full Exam - ENT Cardiovascular auscultation of heart Overall: normal heart sounds 01/30/2017 None Full Exam - ENT Cardiovascular auscultation of heart Overall: no murmurs 01/30/2017 None Full Exam - ENT Abdomen abdominal exam Overall: no tenderness 01/30/2017 None Full Exam - ENT Abdomen abdominal exam Overall: normal bowel sounds 01/30/2017 None Full Exam - ENT Lymphatic palpation of lymph nodes Overall: shotty lymphadenopathy 01/30/2017 None Full Exam - ENT Musculoskeletal head and neck Overall: head atraumatic 01/30/2017 None Full Exam - ENT Musculoskeletal gait and station Overall: normal gait 01/30/2017 None Full Exam - ENT Musculoskeletal gait and station Overall: normal station 01/30/2017 None Full Exam - ENT Neurologic cranial nerves /coordination Overall: cranial nerves 2- 12 grossly intact 01/30/2017 None Full Exam - General 1994 Constitutional general appearance Overall: well developed 01/02/2017 None Full Exam - General 1994 Constitutional general appearance Overall: in no acute distress 01/02/2017 None Full Exam - General 1994 Constitutional general appearance Overall: well nourished 01/02/2017 None Full Exam - General 1994 Eyes conjunctiva /eyelids Overall: conjunctiva clear 01/02/2017 None Full Exam - General 1994 Eyes conjunctiva /eyelids Overall: eyelids normal 01/02/2017 None Full Exam - General 1994 Ears/Nose/Throat lips/teeth/gingiva Overall: benign lips 01/02/2017 None Full Exam - General 1994 Ears/Nose/Throat oral cavity/pharynx/larynx Overall: oral mucosa clear 01/02/2017 None Full Exam - General 1994 Respiratory auscultation Overall: breath sounds clear bilaterally 01/02/2017 None Full Exam - General 1994 Respiratory respiratory effort/rhythm Overall: no retractions 01/02/2017 None Full Exam - General 1994 Respiratory respiratory effort/rhythm Overall: normal rate 01/02/2017 None Full Exam - General 1994 Cardiovascular extremities Overall: no clubbing 01/02/2017 None Full Exam - General 1994 Cardiovascular auscultation of heart Overall: regular rate 01/02/2017 None Full Exam - General 1994 Cardiovascular auscultation of heart Overall: normal heart sounds 01/02/2017 None Full Exam - General 1994 Musculoskeletal head and neck Overall: head atraumatic 01/02/2017 None Full Exam - General 1994 Psychiatric orientation/consciousness Overall: oriented to person, place and time 01/02/2017 None Full Exam - General 1994 Psychiatric mood and affect Overall: normal mood and affect 01/02/2017 None Full Exam - General 1994 Psychiatric appearance Overall: well-groomed, good eye contact 01/02/2017 None Full Exam - General 1994 Constitutional general appearance Overall: well developed 12/29/2016 None Full Exam - General 1994 Constitutional general appearance Overall: in no acute distress 12/29/2016 None Full Exam - General 1994 Constitutional general appearance Overall: well nourished 12/29/2016 None Full Exam - General 1994 Eyes pupils and irises Overall: pupils equal, round, reactive to light and accomodation 12/29/2016 None Full Exam - General 1994 Ears/Nose/Throat oral cavity/pharynx/larynx Overall: oral mucosa clear 12/29/2016 None Full Exam - General 1994 Ears/Nose/Throat oral cavity/pharynx/larynx Overall: oropharyngeal mucosa clear 12/29/2016 None Full Exam - General 1994 Ears/Nose/Throat oral cavity/pharynx/larynx Overall: no masses 12/29/2016 None Full Exam - General 1994 Respiratory auscultation Overall: breath sounds clear bilaterally 12/29/2016 None Full Exam - General 1994 Respiratory respiratory effort/rhythm Overall: no retractions 12/29/2016 None Full Exam - General 1994 Respiratory respiratory effort/rhythm Overall: normal rate 12/29/2016 None Full Exam - General 1994 Cardiovascular auscultation of heart Overall: regular rate 12/29/2016 None Full Exam - General 1994 Cardiovascular auscultation of heart Overall: normal heart sounds 12/29/2016 None Full Exam - General 1994 Abdomen abdominal exam Overall: no tenderness 12/29/2016 None Full Exam - General 1994 Abdomen abdominal exam Overall: normal bowel sounds 12/29/2016 None Full Exam - General 1994 Musculoskeletal upper extremity Inspection - carpals: a normal exam 12/29/2016 None Full Exam - General 1994 Musculoskeletal upper extremity Inspection - metacarpales: swelling 12/29/2016 None Full Exam - General 1994 Integument inspection of skin Overall: no rash, lesions 12/29/2016 None Full Exam - General 1994 Neurologic gait Overall: no ataxia, no unsteadiness 12/29/2016 None Full Exam - General 1994 Neurologic cranial nerves Overall: crainial nerves 2 - 12 grossly intact 12/29/2016 None Full Exam - General 1994 Psychiatric orientation/consciousness Overall: oriented to person, place and time 12/29/2016 None Full Exam - General 1994 Psychiatric mood and affect Overall: normal mood and affect 12/29/2016 None Full Exam - ENT Ears/Nose/Throat nasal mucosa, septum, turbinates Right nasal cavity: narrow 04/01/2016 None Full Exam - ENT Ears/Nose/Throat nasal mucosa, septum, turbinates Right nasal cavity: bleeding 04/01/2016 None Full Exam - ENT Ears/Nose/Throat nasal mucosa, septum, turbinates Drainage: bloody 04/01/2016 None Full Exam - ENT Ears/Nose/Throat nasal mucosa, septum, turbinates Drainage: copious 04/01/2016 None Full Exam - General 1994 Constitutional general appearance Overall: well developed 03/24/2016 None Full Exam - General 1994 Constitutional general appearance Overall: in no acute distress 03/24/2016 None Full Exam - General 1994 Constitutional general appearance Overall: well nourished 03/24/2016 None Full Exam - General 1994 Eyes pupils and irises Overall: pupils equal, round, reactive to light and accomodation 03/24/2016 None Full Exam - General 1994 Ears/Nose/Throat oral cavity/pharynx/larynx Overall: oral mucosa clear 03/24/2016 None Full Exam - General 1994 Ears/Nose/Throat oral cavity/pharynx/larynx Overall: oropharyngeal mucosa clear 03/24/2016 None Full Exam - General 1994 Ears/Nose/Throat oral cavity/pharynx/larynx Overall: no masses 03/24/2016 None Full Exam - General 1994 Respiratory auscultation Overall: breath sounds clear bilaterally 03/24/2016 None Full Exam - General 1994 Respiratory respiratory effort/rhythm Overall: no retractions 03/24/2016 None Full Exam - General 1994 Respiratory respiratory effort/rhythm Overall: normal rate 03/24/2016 None Full Exam - General 1994 Cardiovascular auscultation of heart Overall: regular rate 03/24/2016 None Full Exam - General 1994 Cardiovascular auscultation of heart Overall: normal heart sounds 03/24/2016 None Full Exam - General 1994 Abdomen abdominal exam Overall: no tenderness 03/24/2016 None Full Exam - General 1994 Abdomen abdominal exam Overall: normal bowel sounds 03/24/2016 None Full Exam - General 1994 Neurologic gait Overall: no ataxia, no unsteadiness 03/24/2016 None Full Exam - General 1994 Neurologic cranial nerves Overall: crainial nerves 2 - 12 grossly intact 03/24/2016 None Full Exam - General 1994 Psychiatric orientation/consciousness Overall: oriented to person, place and time 03/24/2016 None Full Exam - General 1994 Psychiatric mood and affect Overall: normal mood and affect 03/24/2016 None Full Exam - ENT Constitutional general appearance Overall: well nourished 09/25/2015 None Full Exam - ENT Constitutional general appearance Overall: well developed 09/25/2015 None Full Exam - ENT Constitutional general appearance Overall: in no acute distress 09/25/2015 None Full Exam - ENT Ears/Nose/Throat lips/ teeth/gingiva Overall: benign lips 09/25/2015 None Full Exam - ENT Ears/Nose/Throat oropharynx Overall: oral mucosa clear 09/25/2015 None Full Exam - ENT Neck inspection of neck Overall: normal size None Full Exam - ENT Neck inspection of neck Overall: normal appearance 09/25/2015 None Full Exam - ENT Respiratory auscultation Overall: breath sounds clear bilaterally 09/25/2015 None Full Exam - ENT Cardiovascular auscultation of heart Overall: regular rate 09/25/2015 None Full Exam - ENT Cardiovascular auscultation of heart Overall: normal heart sounds 09/25/2015 None Full Exam - ENT Abdomen abdominal exam Overall: no tenderness 09/25/2015 None Full Exam - ENT Abdomen abdominal exam Overall: normal bowel sounds 09/25/2015 None Full Exam - ENT Musculoskeletal head and neck Overall: head atraumatic 09/25/2015 None Full Exam - ENT Musculoskeletal gait and station Overall: normal gait 09/25/2015 None Full Exam - ENT Musculoskeletal gait and station Overall: normal station 09/25/2015 None Full Exam - ENT Neurologic cranial nerves /coordination Overall: cranial nerves 2- 12 grossly intact 09/25/2015 None Full Exam - ENT Ears/Nose/Throat otoscopic exam Overall: external auditory canals normal 09/25/2015 None Full Exam - ENT Ears/Nose/Throat otoscopic exam Overall: tympanic membranes normal 09/25/2015 None Full Exam - ENT Ears/Nose/Throat nasal mucosa, septum, turbinates Right nasal cavity: erythema 09/25/2015 None Full Exam - ENT Ears/Nose/Throat nasal mucosa, septum, turbinates Right nasal cavity: scabbing 09/25/2015 None Full Exam - ENT Ears/Nose/Throat nasal mucosa, septum, turbinates Overall: no drainage 09/25/2015 None Full Exam - ENT Ears/Nose/Throat nasal mucosa, septum, turbinates Overall: septum normal and midline 09/25/2015 None Full Exam - ENT Ears/Nose/Throat nasal mucosa, septum, turbinates Overall: no masses 09/25/2015 None Full Exam - ENT Ears/Nose/Throat nasal mucosa, septum, turbinates Left nasal cavity: widely patent 09/25/2015 None Full Exam - ENT Lymphatic palpation of lymph nodes Overall: posterior cervical chain benign 09/25/2015 None Full Exam - ENT Lymphatic palpation of lymph nodes Overall: anterior cervical chain benign 09/25/2015 None Full Exam - ENT Constitutional general appearance Overall: well nourished 08/24/2015 None Full Exam - ENT Constitutional general appearance Overall: well developed 08/24/2015 None Full Exam - ENT Constitutional general appearance Overall: in no acute distress 08/24/2015 None Full Exam - ENT Eyes ocular motility Overall: extraocular movement intact 08/24/2015 None Full Exam - ENT Ears/Nose/Throat otoscopic exam Left external auditory canal: a normal exam 08/24/2015 None Full Exam - ENT Ears/Nose/Throat otoscopic exam Right external auditory canal: a normal exam 08/24/2015 None Full Exam - ENT Ears/Nose/Throat otoscopic exam Left tympanic membrane: air -fluid level 08/24/2015 None Full Exam - ENT Ears/Nose/Throat external ear and nose Overall: normal appearance 08/24/2015 None Full Exam - ENT Ears/Nose/Throat nasal mucosa, septum, turbinates Overall: nasal mucosa clear 08/24/2015 None Full Exam - ENT Ears/Nose/Throat lips/ teeth/gingiva Overall: benign lips 08/24/2015 None Full Exam - ENT Ears/Nose/Throat oropharynx Overall: oral mucosa clear 08/24/2015 None Full Exam - ENT Face and Head inspection of face/head Overall: no scars, lesions, masses 08/24/2015 None Full Exam - ENT Face and Head palpation Left maxillary sinus: tender 08/24/2015 None Full Exam - ENT Face and Head palpation Right maxillary sinus: tender 08/24/2015 None Full Exam - ENT Face and Head palpation Left frontal sinus: tender 08/24/2015 None Full Exam - ENT Face and Head palpation Right frontal sinus: tender 08/24/2015 None Full Exam - ENT Neck inspection of neck Overall: normal size None Full Exam - ENT Neck inspection of neck Overall: normal appearance 08/24/2015 None Full Exam - ENT Respiratory auscultation Overall: breath sounds clear bilaterally 08/24/2015 None Full Exam - ENT Cardiovascular auscultation of heart Overall: regular rate 08/24/2015 None Full Exam - ENT Cardiovascular auscultation of heart Overall: normal heart sounds 08/24/2015 None Full Exam - ENT Cardiovascular auscultation of heart Overall: no murmurs 08/24/2015 None Full Exam - ENT Abdomen abdominal exam Overall: no tenderness 08/24/2015 None Full Exam - ENT Abdomen abdominal exam Overall: normal bowel sounds 08/24/2015 None Full Exam - ENT Lymphatic palpation of lymph nodes Overall: shotty lymphadenopathy 08/24/2015 None Full Exam - ENT Musculoskeletal head and neck Overall: head atraumatic 08/24/2015 None Full Exam - ENT Musculoskeletal gait and station Overall: normal gait 08/24/2015 None Full Exam - ENT Musculoskeletal gait and station Overall: normal station 08/24/2015 None Full Exam - ENT Neurologic cranial nerves /coordination Overall: cranial nerves 2- 12 grossly intact 08/24/2015 None Full Exam - ENT Ears/Nose/Throat otoscopic exam Right external auditory canal: complete cerumen impaction 08/24/2015 None Full Exam - ENT Ears/Nose/Throat otoscopic exam Right tympanic membrane: not visualized 08/24/2015 None Full Exam - General 1994 Constitutional general appearance Overall: well developed 06/12/2015 None Full Exam - General 1994 Constitutional general appearance Overall: in no acute distress 06/12/2015 None Full Exam - General 1994 Constitutional general appearance Overall: well nourished 06/12/2015 None Full Exam - General 1994 Eyes pupils and irises Overall: pupils equal, round, reactive to light and accomodation 06/12/2015 None Full Exam - General 1994 Ears/Nose/Throat oral cavity/pharynx/larynx Overall: oral mucosa clear 06/12/2015 None Full Exam - General 1994 Ears/Nose/Throat oral cavity/pharynx/larynx Overall: oropharyngeal mucosa clear 06/12/2015 None Full Exam - General 1994 Ears/Nose/Throat oral cavity/pharynx/larynx Overall: no masses 06/12/2015 None Full Exam - General 1994 Respiratory auscultation Overall: breath sounds clear bilaterally 06/12/2015 None Full Exam - General 1994 Respiratory respiratory effort/rhythm Overall: no retractions 06/12/2015 None Full Exam - General 1994 Respiratory respiratory effort/rhythm Overall: normal rate 06/12/2015 None Full Exam - General 1994 Cardiovascular auscultation of heart Overall: regular rate 06/12/2015 None Full Exam - General 1994 Cardiovascular auscultation of heart Overall: normal heart sounds 06/12/2015 None Full Exam - General 1994 Abdomen abdominal exam Overall: no tenderness 06/12/2015 None Full Exam - General 1994 Abdomen abdominal exam Overall: normal bowel sounds 06/12/2015 None Full Exam - General 1994 Integument inspection of skin Overall: no rash, lesions 06/12/2015 None Full Exam - General 1994 Neurologic gait Overall: no ataxia, no unsteadiness 06/12/2015 None Full Exam - General 1994 Neurologic cranial nerves Overall: crainial nerves 2 - 12 grossly intact 06/12/2015 None Full Exam - General 1994 Psychiatric orientation/consciousness Overall: oriented to person, place and time 06/12/2015 None Full Exam - General 1994 Psychiatric mood and affect Overall: normal mood and affect 06/12/2015 None Full Exam - General 1994 Genitourinary uterus Overall: surgically absent 06/12/2015 None Full Exam - General 1994 Genitourinary cervix Overall: surgically absent 06/12/2015 None Full Exam - General 1994 Genitourinary labia and vagina Labia: tender 06/12/2015 None Full Exam - General 1994 Genitourinary adnexa/parametria Overall: surgically absent 06/12/2015 None Full Exam - General 1994 Genitourinary urethra Overall: no masses 06/12/2015 None Full Exam - General 1994 Genitourinary bladder Overall: no tenderness 06/12/2015 None Full Exam - ENT Constitutional general appearance Overall: well nourished 05/29/2015 None Full Exam - ENT Constitutional general appearance Overall: well developed 05/29/2015 None Full Exam - ENT Constitutional general appearance Overall: in no acute distress 05/29/2015 None Full Exam - ENT Eyes ocular motility Overall: extraocular movement intact 05/29/2015 None Full Exam - ENT Ears/Nose/Throat otoscopic exam Left external auditory canal: a normal exam 05/29/2015 None Full Exam - ENT Ears/Nose/Throat otoscopic exam Right external auditory canal: a normal exam 05/29/2015 None Full Exam - ENT Ears/Nose/Throat otoscopic exam Left tympanic membrane: air -fluid level 05/29/2015 None Full Exam - ENT Ears/Nose/Throat otoscopic exam Right tympanic membrane: air-fluid level 05/29/2015 None Full Exam - ENT Ears/Nose/Throat external ear and nose Overall: normal appearance 05/29/2015 None Full Exam - ENT Ears/Nose/Throat nasal mucosa, septum, turbinates Overall: nasal mucosa clear 05/29/2015 None Full Exam - ENT Ears/Nose/Throat lips/ teeth/gingiva Overall: benign lips 05/29/2015 None Full Exam - ENT Ears/Nose/Throat oropharynx Overall: oral mucosa clear 05/29/2015 None Full Exam - ENT Face and Head inspection of face/head Overall: no scars, lesions, masses 05/29/2015 None Full Exam - ENT Face and Head palpation Left maxillary sinus: tender 05/29/2015 None Full Exam - ENT Face and Head palpation Right maxillary sinus: tender 05/29/2015 None Full Exam - ENT Face and Head palpation Left frontal sinus: tender 05/29/2015 None Full Exam - ENT Face and Head palpation Right frontal sinus: tender 05/29/2015 None Full Exam - ENT Neck inspection of neck Overall: normal size None Full Exam - ENT Neck inspection of neck Overall: normal appearance 05/29/2015 None Full Exam - ENT Respiratory auscultation Overall: breath sounds clear bilaterally 05/29/2015 None Full Exam - ENT Cardiovascular auscultation of heart Overall: regular rate 05/29/2015 None Full Exam - ENT Cardiovascular auscultation of heart Overall: normal heart sounds 05/29/2015 None Full Exam - ENT Cardiovascular auscultation of heart Overall: no murmurs 05/29/2015 None Full Exam - ENT Abdomen abdominal exam Overall: no tenderness 05/29/2015 None Full Exam - ENT Abdomen abdominal exam Overall: normal bowel sounds 05/29/2015 None Full Exam - ENT Lymphatic palpation of lymph nodes Overall: shotty lymphadenopathy 05/29/2015 None Full Exam - ENT Musculoskeletal head and neck Overall: head atraumatic 05/29/2015 None Full Exam - ENT Musculoskeletal gait and station Overall: normal gait 05/29/2015 None Full Exam - ENT Musculoskeletal gait and station Overall: normal station 05/29/2015 None Full Exam - ENT Neurologic cranial nerves /coordination Overall: cranial nerves 2- 12 grossly intact 05/29/2015 None Full Exam - ENT Integument inspection of skin Location: inguinal area 05/29/2015 left Full Exam - ENT Integument inspection of skin Rash/Lesions: patch 05/29/2015 None Full Exam - ENT Integument inspection of skin Dermatitis: erythema 05/29/2015 None Full Exam - General 1994 Constitutional general appearance Overall: well developed 03/26/2015 None Full Exam - General 1994 Constitutional general appearance Overall: in no acute distress 03/26/2015 None Full Exam - General 1994 Constitutional general appearance Overall: well nourished 03/26/2015 None Full Exam - General 1994 Eyes pupils and irises Overall: pupils equal, round, reactive to light and accomodation 03/26/2015 None Full Exam - General 1994 Ears/Nose/Throat oral cavity/pharynx/larynx Overall: oral mucosa clear 03/26/2015 None Full Exam - General 1994 Ears/Nose/Throat oral cavity/pharynx/larynx Overall: oropharyngeal mucosa clear 03/26/2015 None Full Exam - General 1994 Ears/Nose/Throat oral cavity/pharynx/larynx Overall: no masses 03/26/2015 None Full Exam - General 1994 Respiratory auscultation Overall: breath sounds clear bilaterally 03/26/2015 None Full Exam - General 1994 Respiratory respiratory effort/rhythm Overall: no retractions 03/26/2015 None Full Exam - General 1994 Respiratory respiratory effort/rhythm Overall: normal rate 03/26/2015 None Full Exam - General 1994 Cardiovascular auscultation of heart Overall: regular rate 03/26/2015 None Full Exam - General 1994 Cardiovascular auscultation of heart Overall: normal heart sounds 03/26/2015 None Full Exam - General 1994 Abdomen abdominal exam Overall: no tenderness 03/26/2015 None Full Exam - General 1994 Abdomen abdominal exam Overall: normal bowel sounds 03/26/2015 None Full Exam - General 1994 Musculoskeletal upper extremity Inspection - carpals: a normal exam 03/26/2015 None Full Exam - General 1994 Musculoskeletal upper extremity Inspection - metacarpales: swelling 03/26/2015 None Full Exam - General 1994 Integument inspection of skin Location: back 03/26/2015 Skin tag with granulation tissue at underwear line removed using sterile technique without incident. Comedone to upper middle back with foul odor discharge expelled. Triple antibiotic ointment applied. Full Exam - General 1994 Neurologic gait Overall: no ataxia, no unsteadiness 03/26/2015 None Full Exam - General 1994 Neurologic cranial nerves Overall: crainial nerves 2 - 12 grossly intact 03/26/2015 None Full Exam - General 1994 Psychiatric orientation/consciousness Overall: oriented to person, place and time 03/26/2015 None Full Exam - General 1994 Psychiatric mood and affect Overall: normal mood and affect 03/26/2015 None Full Exam - General 1994 Ears/Nose/Throat otoscopic exam External auditory canal: partial cerumen occlusion 03/26/2015 flushed cerumen without complications using water pick. Full Exam - General 1994 Integument inspection of skin Location: left leg 03/26/2015 Seborrheic Keratosis to left lower leg and left upper leg each frozen with liquid nitrogen. Full Exam - General 1994 Integument inspection of skin Location: left arm 03/26/2015 Seborrheic Keratosis to upper left arm frozen with liqid nitrogen Full Exam - General 1994 Constitutional general appearance Overall: well developed 03/17/2015 None Full Exam - General 1994 Constitutional general appearance Overall: in no acute distress 03/17/2015 None Full Exam - General 1994 Constitutional general appearance Overall: well nourished 03/17/2015 None Full Exam - General 1994 Eyes pupils and irises Overall: pupils equal, round, reactive to light and accomodation 03/17/2015 None Full Exam - General 1994 Ears/Nose/Throat oral cavity/pharynx/larynx Overall: oral mucosa clear 03/17/2015 None Full Exam - General 1994 Ears/Nose/Throat oral cavity/pharynx/larynx Overall: oropharyngeal mucosa clear 03/17/2015 None Full Exam - General 1994 Ears/Nose/Throat oral cavity/pharynx/larynx Overall: no masses 03/17/2015 None Full Exam - General 1994 Respiratory auscultation Overall: breath sounds clear bilaterally 03/17/2015 None Full Exam - General 1994 Respiratory respiratory effort/rhythm Overall: no retractions 03/17/2015 None Full Exam - General 1994 Respiratory respiratory effort/rhythm Overall: normal rate 03/17/2015 None Full Exam - General 1994 Cardiovascular auscultation of heart Overall: regular rate 03/17/2015 None Full Exam - General 1994 Cardiovascular auscultation of heart Overall: normal heart sounds 03/17/2015 None Full Exam - General 1994 Abdomen abdominal exam Overall: no tenderness 03/17/2015 None Full Exam - General 1994 Abdomen abdominal exam Overall: normal bowel sounds 03/17/2015 None Full Exam - General 1994 Musculoskeletal upper extremity Inspection - carpals: a normal exam 03/17/2015 None Full Exam - General 1994 Musculoskeletal upper extremity Inspection - metacarpales: swelling 03/17/2015 None Full Exam - General 1994 Neurologic gait Overall: no ataxia, no unsteadiness 03/17/2015 None Full Exam - General 1994 Neurologic cranial nerves Overall: crainial nerves 2 - 12 grossly intact 03/17/2015 None Full Exam - General 1994 Psychiatric orientation/consciousness Overall: oriented to person, place and time 03/17/2015 None Full Exam - General 1994 Psychiatric mood and affect Overall: normal mood and affect 03/17/2015 None Full Exam - General 1994 Integument inspection of skin Location: buttocks 03/17/2015 left buttock with a healing bug bite. Slightly reddened. Full Exam - General 1994 Integument inspection of skin Location: back 03/17/2015 2 small skin tags at underwear line, reddened and irritated. Pt states she would like these removed. Full Exam - General 1994 Constitutional general appearance Overall: well developed 10/15/2014 None Full Exam - General 1994 Constitutional general appearance Overall: in no acute distress 10/15/2014 None Full Exam - General 1994 Constitutional general appearance Overall: well nourished 10/15/2014 None Full Exam - General 1994 Eyes pupils and irises Overall: pupils equal, round, reactive to light and accomodation 10/15/2014 None Full Exam - General 1994 Ears/Nose/Throat oral cavity/pharynx/larynx Overall: oral mucosa clear 10/15/2014 None Full Exam - General 1994 Ears/Nose/Throat oral cavity/pharynx/larynx Overall: oropharyngeal mucosa clear 10/15/2014 None Full Exam - General 1994 Ears/Nose/Throat oral cavity/pharynx/larynx Overall: no masses 10/15/2014 None Full Exam - General 1994 Respiratory auscultation Overall: breath sounds clear bilaterally 10/15/2014 None Full Exam - General 1994 Respiratory respiratory effort/rhythm Overall: no retractions 10/15/2014 None Full Exam - General 1994 Respiratory respiratory effort/rhythm Overall: normal rate 10/15/2014 None Full Exam - General 1994 Cardiovascular auscultation of heart Overall: regular rate 10/15/2014 None Full Exam - General 1994 Cardiovascular auscultation of heart Overall: normal heart sounds 10/15/2014 None Full Exam - General 1994 Abdomen abdominal exam Overall: no tenderness 10/15/2014 None Full Exam - General 1994 Abdomen abdominal exam Overall: normal bowel sounds 10/15/2014 None Full Exam - General 1994 Musculoskeletal upper extremity Inspection - carpals: a normal exam 10/15/2014 None Full Exam - General 1994 Musculoskeletal upper extremity Inspection - metacarpales: swelling 10/15/2014 None Full Exam - General 1994 Integument inspection of skin Overall: no rash, lesions 10/15/2014 None Full Exam - General 1994 Neurologic gait Overall: no ataxia, no unsteadiness 10/15/2014 None Full Exam - General 1994 Neurologic cranial nerves Overall: crainial nerves 2 - 12 grossly intact 10/15/2014 None Full Exam - General 1994 Psychiatric orientation/consciousness Overall: oriented to person, place and time 10/15/2014 None Full Exam - General 1994 Psychiatric mood and affect Overall: normal mood and affect 10/15/2014 None Full Exam - ENT Constitutional general appearance Overall: well nourished 04/10/2014 None Full Exam - ENT Constitutional general appearance Overall: well developed 04/10/2014 None Full Exam - ENT Constitutional general appearance Overall: in no acute distress 04/10/2014 None Full Exam - ENT Neurologic orientation Overall: oriented to person, place and time 04/10/2014 None Full Exam - ENT Lymphatic palpation of lymph nodes Overall: anterior cervical chain benign 04/10/2014 None Full Exam - ENT Lymphatic palpation of lymph nodes Overall: posterior cervical chain benign 04/10/2014 None Full Exam - ENT Cardiovascular auscultation of heart Overall: regular rate 04/10/2014 None Full Exam - ENT Cardiovascular auscultation of heart Overall: normal heart sounds 04/10/2014 None Full Exam - ENT Respiratory auscultation Overall: breath sounds clear bilaterally 04/10/2014 None Full Exam - ENT Ears/Nose/Throat nasal mucosa, septum, turbinates Right nasal cavity: lesion 04/10/2014 scabbed, no active bleeding Full Exam - General 1994 Constitutional general appearance Overall: well developed 02/17/2014 None Full Exam - General 1994 Constitutional general appearance Overall: in no acute distress 02/17/2014 None Full Exam - General 1994 Constitutional general appearance Overall: well nourished 02/17/2014 None Full Exam - General 1994 Eyes pupils and irises Overall: pupils equal, round, reactive to light and accomodation 02/17/2014 None Full Exam - General 1994 Ears/Nose/Throat oral cavity/pharynx/larynx Overall: oral mucosa clear 02/17/2014 None Full Exam - General 1994 Ears/Nose/Throat oral cavity/pharynx/larynx Overall: oropharyngeal mucosa clear 02/17/2014 None Full Exam - General 1994 Ears/Nose/Throat oral cavity/pharynx/larynx Overall: no masses 02/17/2014 None Full Exam - General 1994 Respiratory auscultation Overall: breath sounds clear bilaterally 02/17/2014 None Full Exam - General 1994 Respiratory respiratory effort/rhythm Overall: no retractions 02/17/2014 None Full Exam - General 1994 Respiratory respiratory effort/rhythm Overall: normal rate 02/17/2014 None Full Exam - General 1994 Cardiovascular auscultation of heart Overall: regular rate 02/17/2014 None Full Exam - General 1994 Cardiovascular auscultation of heart Overall: normal heart sounds 02/17/2014 None Full Exam - General 1994 Abdomen abdominal exam Overall: no tenderness 02/17/2014 None Full Exam - General 1994 Abdomen abdominal exam Overall: normal bowel sounds 02/17/2014 None Full Exam - General 1994 Musculoskeletal upper extremity Inspection - carpals: a normal exam 02/17/2014 None Full Exam - General 1994 Musculoskeletal upper extremity Inspection - metacarpales: swelling 02/17/2014 None Full Exam - General 1994 Integument inspection of skin Overall: no rash, lesions 02/17/2014 None Full Exam - General 1994 Neurologic gait Overall: no ataxia, no unsteadiness 02/17/2014 None Full Exam - General 1994 Neurologic cranial nerves Overall: crainial nerves 2 - 12 grossly intact 02/17/2014 None Full Exam - General 1994 Psychiatric orientation/consciousness Overall: oriented to person, place and time 02/17/2014 None Full Exam - General 1994 Psychiatric mood and affect Overall: normal mood and affect 02/17/2014 None Full Exam - ENT Constitutional general appearance Overall: well nourished 12/05/2013 None Full Exam - ENT Constitutional general appearance Overall: well developed 12/05/2013 None Full Exam - ENT Constitutional general appearance Overall: in no acute distress 12/05/2013 None Full Exam - ENT Eyes ocular motility Overall: extraocular movement intact 12/05/2013 None Full Exam - ENT Ears/Nose/Throat otoscopic exam Left external auditory canal: a normal exam 12/05/2013 None Full Exam - ENT Ears/Nose/Throat otoscopic exam Right external auditory canal: a normal exam 12/05/2013 None Full Exam - ENT Ears/Nose/Throat otoscopic exam Left tympanic membrane: air -fluid level 12/05/2013 None Full Exam - ENT Ears/Nose/Throat otoscopic exam Right tympanic membrane: air-fluid level 12/05/2013 None Full Exam - ENT Ears/Nose/Throat external ear and nose Overall: normal appearance 12/05/2013 None Full Exam - ENT Ears/Nose/Throat nasal mucosa, septum, turbinates Overall: nasal mucosa clear 12/05/2013 None Full Exam - ENT Ears/Nose/Throat lips/ teeth/gingiva Overall: benign lips 12/05/2013 None Full Exam - ENT Ears/Nose/Throat oropharynx Overall: oral mucosa clear 12/05/2013 None Full Exam - ENT Face and Head inspection of face/head Overall: no scars, lesions, masses 12/05/2013 None Full Exam - ENT Face and Head palpation Left frontal sinus: tender 12/05/2013 None Full Exam - ENT Face and Head palpation Right frontal sinus: tender 12/05/2013 None Full Exam - ENT Neck inspection of neck Overall: normal size None Full Exam - ENT Neck inspection of neck Overall: normal appearance 12/05/2013 None Full Exam - ENT Respiratory auscultation Overall: breath sounds clear bilaterally 12/05/2013 None Full Exam - ENT Cardiovascular auscultation of heart Overall: regular rate 12/05/2013 None Full Exam - ENT Cardiovascular auscultation of heart Overall: normal heart sounds 12/05/2013 None Full Exam - ENT Cardiovascular auscultation of heart Overall: no murmurs 12/05/2013 None Full Exam - ENT Abdomen abdominal exam Overall: no tenderness 12/05/2013 None Full Exam - ENT Abdomen abdominal exam Overall: normal bowel sounds 12/05/2013 None Full Exam - ENT Lymphatic palpation of lymph nodes Overall: shotty lymphadenopathy 12/05/2013 None Full Exam - ENT Musculoskeletal head and neck Overall: head atraumatic 12/05/2013 None Full Exam - ENT Musculoskeletal gait and station Overall: normal gait 12/05/2013 None Full Exam - ENT Musculoskeletal gait and station Overall: normal station 12/05/2013 None Full Exam - ENT Integument inspection of skin Overall: no rash, lesions 12/05/2013 None Full Exam - ENT Neurologic cranial nerves /coordination Overall: cranial nerves 2- 12 grossly intact 12/05/2013 None Full Exam - ENT Face and Head palpation Right maxillary sinus: tender 12/05/2013 None Full Exam - ENT Face and Head palpation Left maxillary sinus: tender 12/05/2013 None Full Exam - General 1994 Constitutional general appearance Overall: well developed 09/25/2013 None Full Exam - General 1994 Constitutional general appearance Overall: in no acute distress 09/25/2013 None Full Exam - General 1994 Constitutional general appearance Overall: well nourished 09/25/2013 None Full Exam - General 1994 Eyes pupils and irises Overall: pupils equal, round, reactive to light and accomodation 09/25/2013 None Full Exam - General 1994 Ears/Nose/Throat oral cavity/pharynx/larynx Overall: oral mucosa clear 09/25/2013 None Full Exam - General 1995 Ears/Nose/Throat oral cavity/pharynx/larynx Overall: oropharyngeal mucosa clear 09/25/2013 None Full Exam - General 1995 Ears/Nose/Throat oral cavity/pharynx/larynx Overall: no masses 09/25/2013 None Full Exam - General 1994 Respiratory auscultation Overall: breath sounds clear bilaterally 09/25/2013 None Full Exam - General 1994 Respiratory respiratory effort/rhythm Overall: no retractions 09/25/2013 None Full Exam - General 1994 Respiratory respiratory effort/rhythm Overall: normal rate 09/25/2013 None Full Exam - General 1994 Cardiovascular auscultation of heart Overall: regular rate 09/25/2013 None Full Exam - General 1994 Cardiovascular auscultation of heart Overall: normal heart sounds 09/25/2013 None Full Exam - General 1994 Abdomen abdominal exam Overall: no tenderness 09/25/2013 None Full Exam - General 1994 Abdomen abdominal exam Overall: normal bowel sounds 09/25/2013 None Full Exam - General 1994 Musculoskeletal upper extremity Inspection - carpals: a normal exam 09/25/2013 None Full Exam - General 1994 Musculoskeletal upper extremity Inspection - metacarpales: swelling 09/25/2013 None Full Exam - General 1994 Integument inspection of skin Overall: no rash, lesions 09/25/2013 None Full Exam - General 1994 Neurologic gait Overall: no ataxia, no unsteadiness 09/25/2013 None Full Exam - General 1994 Neurologic cranial nerves Overall: crainial nerves 2 - 12 grossly intact 09/25/2013 None Full Exam - General 1994 Psychiatric orientation/consciousness Overall: oriented to person, place and time 09/25/2013 None Full Exam - General 1994 Psychiatric mood and affect Overall: normal mood and affect 09/25/2013 None Full Exam - General 1994 Constitutional general appearance Overall: well developed 07/09/2013 None Full Exam - General 1994 Constitutional general appearance Overall: in no acute distress 07/09/2013 None Full Exam - General 1994 Constitutional general appearance Overall: well nourished 07/09/2013 None Full Exam - General 1994 Eyes pupils and irises Overall: pupils equal, round, reactive to light and accomodation 07/09/2013 None Full Exam - General 1994 Ears/Nose/Throat oral cavity/pharynx/larynx Overall: oral mucosa clear 07/09/2013 None Full Exam - General 1994 Ears/Nose/Throat oral cavity/pharynx/larynx Overall: oropharyngeal mucosa clear 07/09/2013 None Full Exam - General 1994 Ears/Nose/Throat oral cavity/pharynx/larynx Overall: no masses 07/09/2013 None Full Exam - General 1994 Respiratory auscultation Overall: breath sounds clear bilaterally 07/09/2013 None Full Exam - General 1994 Respiratory respiratory effort/rhythm Overall: no retractions 07/09/2013 None Full Exam - General 1994 Respiratory respiratory effort/rhythm Overall: normal rate 07/09/2013 None Full Exam - General 1994 Cardiovascular auscultation of heart Overall: regular rate 07/09/2013 None Full Exam - General 1994 Cardiovascular auscultation of heart Overall: normal heart sounds 07/09/2013 None Full Exam - General 1994 Abdomen abdominal exam Overall: no tenderness 07/09/2013 None Full Exam - General 1994 Abdomen abdominal exam Overall: normal bowel sounds 07/09/2013 None Full Exam - General 1994 Musculoskeletal upper extremity Inspection - carpals: a normal exam 07/09/2013 None Full Exam - General 1994 Musculoskeletal upper extremity Inspection - metacarpales: swelling 07/09/2013 None Full Exam - General 1994 Integument inspection of skin Overall: no rash, lesions 07/09/2013 None Full Exam - General 1994 Neurologic gait Overall: no ataxia, no unsteadiness 07/09/2013 None Full Exam - General 1994 Neurologic cranial nerves Overall: crainial nerves 2 - 12 grossly intact 07/09/2013 None Full Exam - General 1994 Psychiatric orientation/consciousness Overall: oriented to person, place and time 07/09/2013 None Full Exam - General 1994 Psychiatric mood and affect Overall: normal mood and affect 07/09/2013 None Full Exam - General 1994 Constitutional general appearance Overall: well developed 2013 None Full Exam - General 1994 Constitutional general appearance Overall: in no acute distress 2013 None Full Exam - General 1994 Constitutional general appearance Overall: well nourished 2013 None Full Exam - General 1994 Eyes pupils and irises Overall: pupils equal, round, reactive to light and accomodation 2013 None Full Exam - General 1994 Ears/Nose/Throat oral cavity/pharynx/larynx Overall: oral mucosa clear 2013 None Full Exam - General 1994 Ears/Nose/Throat oral cavity/pharynx/larynx Overall: oropharyngeal mucosa clear 2013 None Full Exam - General 1995 Ears/Nose/Throat oral cavity/pharynx/larynx Overall: no masses 2013 None Full Exam - General 1995 Respiratory auscultation Overall: breath sounds clear bilaterally 2013 None Full Exam - General 1995 Respiratory respiratory effort/rhythm Overall: no retractions 2013 None Full Exam - General 1995 Respiratory respiratory effort/rhythm Overall: normal rate 2013 None Full Exam - General 1994 Cardiovascular auscultation of heart Overall: regular rate 2013 None Full Exam - General 1994 Cardiovascular auscultation of heart Overall: normal heart sounds 2013 None Full Exam - General 1995 Abdomen abdominal exam Overall: no tenderness 2013 None Full Exam - General 1995 Abdomen abdominal exam Overall: normal bowel sounds 2013 None Full Exam - General 1994 Musculoskeletal upper extremity Inspection - carpals: a normal exam 2013 None Full Exam - General 1994 Musculoskeletal upper extremity Inspection - metacarpales: swelling 2013 None Full Exam - General 1994 Integument inspection of skin Overall: no rash, lesions 2013 None Full Exam - General 1994 Neurologic gait Overall: no ataxia, no unsteadiness 2013 None Full Exam - General 1994 Neurologic cranial nerves Overall: crainial nerves 2 - 12 grossly intact 2013 None Full Exam - General 1994 Psychiatric orientation/consciousness Overall: oriented to person, place and time 2013 None Full Exam - General 1994 Psychiatric mood and affect Overall: normal mood and affect 2013 None Full Exam - General 1994 Constitutional general appearance Overall: well developed 03/22/2013 None Full Exam - General 1994 Constitutional general appearance Overall: in no acute distress 03/22/2013 None Full Exam - General 1994 Constitutional general appearance Overall: well nourished 03/22/2013 None Full Exam - General 1994 Eyes pupils and irises Overall: pupils equal, round, reactive to light and accomodation 03/22/2013 None Full Exam - General 1994 Ears/Nose/Throat oral cavity/pharynx/larynx Overall: oral mucosa clear 03/22/2013 None Full Exam - General 1995 Ears/Nose/Throat oral cavity/pharynx/larynx Overall: oropharyngeal mucosa clear 03/22/2013 None Full Exam - General 1994 Ears/Nose/Throat oral cavity/pharynx/larynx Overall: no masses 03/22/2013 None Full Exam - General 1994 Respiratory auscultation Overall: breath sounds clear bilaterally 03/22/2013 None Full Exam - General 1994 Respiratory respiratory effort/rhythm Overall: no retractions 03/22/2013 None Full Exam - General 1994 Respiratory respiratory effort/rhythm Overall: normal rate 03/22/2013 None Full Exam - General 1994 Cardiovascular auscultation of heart Overall: regular rate 03/22/2013 None Full Exam - General 1994 Cardiovascular auscultation of heart Overall: normal heart sounds 03/22/2013 None Full Exam - General 1994 Abdomen abdominal exam Overall: no tenderness 03/22/2013 None Full Exam - General 1995 Abdomen abdominal exam Overall: normal bowel sounds 03/22/2013 None Full Exam - General 1994 Musculoskeletal upper extremity Inspection - carpals: a normal exam 03/22/2013 None Full Exam - General 1994 Musculoskeletal upper extremity Inspection - metacarpales: swelling 03/22/2013 None Full Exam - General 1994 Integument inspection of skin Overall: no rash, lesions 03/22/2013 None Full Exam - General 1994 Neurologic gait Overall: no ataxia, no unsteadiness 03/22/2013 None Full Exam - General 1994 Neurologic cranial nerves Overall: crainial nerves 2 - 12 grossly intact 03/22/2013 None Full Exam - General 1994 Psychiatric orientation/consciousness Overall: oriented to person, place and time 03/22/2013 None Full Exam - General 1994 Psychiatric mood and affect Overall: normal mood and affect 03/22/2013 None Full Exam - General 1994 Constitutional general appearance Overall: well developed 02/28/2013 None Full Exam - General 1994 Constitutional general appearance Overall: in no acute distress 02/28/2013 None Full Exam - General 1994 Constitutional general appearance Overall: well nourished 02/28/2013 None Full Exam - General 1994 Eyes pupils and irises Overall: pupils equal, round, reactive to light and accomodation 02/28/2013 None Full Exam - General 1994 Ears/Nose/Throat oral cavity/pharynx/larynx Overall: oral mucosa clear 02/28/2013 None Full Exam - General 1994 Ears/Nose/Throat oral cavity/pharynx/larynx Overall: oropharyngeal mucosa clear 02/28/2013 None Full Exam - General 1994 Ears/Nose/Throat oral cavity/pharynx/larynx Overall: no masses 02/28/2013 None Full Exam - General 1994 Respiratory auscultation Overall: breath sounds clear bilaterally 02/28/2013 None Full Exam - General 1994 Respiratory respiratory effort/rhythm Overall: no retractions 02/28/2013 None Full Exam - General 1994 Respiratory respiratory effort/rhythm Overall: normal rate 02/28/2013 None Full Exam - General 1994 Cardiovascular auscultation of heart Overall: regular rate 02/28/2013 None Full Exam - General 1994 Cardiovascular auscultation of heart Overall: normal heart sounds 02/28/2013 None Full Exam - General 1994 Abdomen abdominal exam Overall: no tenderness 02/28/2013 None Full Exam - General 1994 Abdomen abdominal exam Overall: normal bowel sounds 02/28/2013 None Full Exam - General 1994 Musculoskeletal upper extremity Inspection - carpals: a normal exam 02/28/2013 None Full Exam - General 1994 Musculoskeletal upper extremity Inspection - metacarpales: swelling 02/28/2013 None Full Exam - General 1994 Integument inspection of skin Overall: no rash, lesions 02/28/2013 None Full Exam - General 1994 Neurologic gait Overall: no ataxia, no unsteadiness 02/28/2013 None Full Exam - General 1994 Neurologic cranial nerves Overall: crainial nerves 2 - 12 grossly intact 02/28/2013 None Full Exam - General 1994 Psychiatric orientation/consciousness Overall: oriented to person, place and time 02/28/2013 None Full Exam - General 1994 Psychiatric mood and affect Overall: normal mood and affect 02/28/2013 None Full Exam - ENT Constitutional general appearance Overall: well nourished 10/23/2012 None Full Exam - ENT Constitutional general appearance Overall: well developed 10/23/2012 None Full Exam - ENT Constitutional general appearance Overall: in no acute distress 10/23/2012 None Full Exam - ENT Eyes ocular motility Overall: extraocular movement intact 10/23/2012 None Full Exam - ENT Ears/Nose/Throat otoscopic exam Left external auditory canal: a normal exam 10/23/2012 None Full Exam - ENT Ears/Nose/Throat otoscopic exam Right external auditory canal: a normal exam 10/23/2012 None Full Exam - ENT Ears/Nose/Throat otoscopic exam Left tympanic membrane: air -fluid level 10/23/2012 None Full Exam - ENT Ears/Nose/Throat otoscopic exam Right tympanic membrane: air-fluid level 10/23/2012 None Full Exam - ENT Ears/Nose/Throat external ear and nose Overall: normal appearance 10/23/2012 None Full Exam - ENT Ears/Nose/Throat nasal mucosa, septum, turbinates Overall: nasal mucosa clear 10/23/2012 None Full Exam - ENT Ears/Nose/Throat lips/ teeth/gingiva Overall: benign lips 10/23/2012 None Full Exam - ENT Ears/Nose/Throat oropharynx Overall: oral mucosa clear 10/23/2012 None Full Exam - ENT Face and Head inspection of face/head Overall: no scars, lesions, masses 10/23/2012 None Full Exam - ENT Face and Head palpation Left frontal sinus: tender 10/23/2012 None Full Exam - ENT Face and Head palpation Right frontal sinus: tender 10/23/2012 None Full Exam - ENT Neck inspection of neck Overall: normal size None Full Exam - ENT Neck inspection of neck Overall: normal appearance 10/23/2012 None Full Exam - ENT Respiratory auscultation Overall: breath sounds clear bilaterally 10/23/2012 None Full Exam - ENT Cardiovascular auscultation of heart Overall: regular rate 10/23/2012 None Full Exam - ENT Cardiovascular auscultation of heart Overall: normal heart sounds 10/23/2012 None Full Exam - ENT Cardiovascular auscultation of heart Overall: no murmurs 10/23/2012 None Full Exam - ENT Abdomen abdominal exam Overall: no tenderness 10/23/2012 None Full Exam - ENT Abdomen abdominal exam Overall: normal bowel sounds 10/23/2012 None Full Exam - ENT Lymphatic palpation of lymph nodes Overall: shotty lymphadenopathy 10/23/2012 None Full Exam - ENT Musculoskeletal head and neck Overall: head atraumatic 10/23/2012 None Full Exam - ENT Musculoskeletal gait and station Overall: normal gait 10/23/2012 None Full Exam - ENT Musculoskeletal gait and station Overall: normal station 10/23/2012 None Full Exam - ENT Integument inspection of skin Overall: no rash, lesions 10/23/2012 None Full Exam - ENT Neurologic cranial nerves /coordination Overall: cranial nerves 2- 12 grossly intact 10/23/2012 None Full Exam - General 1994 Neurologic gait Overall: no ataxia, no unsteadiness 03/08/2012 None Full Exam - General 1994 Neurologic cranial nerves Overall: crainial nerves 2 - 12 grossly intact 03/08/2012 None Full Exam - General 1994 Psychiatric orientation/consciousness Overall: oriented to person, place and time 03/08/2012 None Full Exam - General 1994 Psychiatric mood and affect Overall: normal mood and affect 03/08/2012 None Full Exam - General 1994 Constitutional general appearance Overall: well developed 03/08/2012 None Full Exam - General 1994 Constitutional general appearance Overall: in no acute distress 03/08/2012 None Full Exam - General 1994 Constitutional general appearance Overall: well nourished 03/08/2012 None Full Exam - General 1994 Eyes pupils and irises Overall: pupils equal, round, reactive to light and accomodation 03/08/2012 None Full Exam - General 1994 Ears/Nose/Throat oral cavity/pharynx/larynx Overall: oral mucosa clear 03/08/2012 None Full Exam - General 1994 Ears/Nose/Throat oral cavity/pharynx/larynx Overall: oropharyngeal mucosa clear 03/08/2012 None Full Exam - General 1994 Ears/Nose/Throat oral cavity/pharynx/larynx Overall: no masses 03/08/2012 None Full Exam - General 1994 Respiratory auscultation Overall: breath sounds clear bilaterally 03/08/2012 None Full Exam - General 1994 Respiratory respiratory effort/rhythm Overall: no retractions 03/08/2012 None Full Exam - General 1994 Respiratory respiratory effort/rhythm Overall: normal rate 03/08/2012 None Full Exam - General 1994 Cardiovascular auscultation of heart Overall: regular rate 03/08/2012 None Full Exam - General 1994 Cardiovascular auscultation of heart Overall: normal heart sounds 03/08/2012 None Full Exam - General 1994 Abdomen abdominal exam Overall: no tenderness 03/08/2012 None Full Exam - General 1994 Abdomen abdominal exam Overall: normal bowel sounds 03/08/2012 None Full Exam - General 1994 Musculoskeletal upper extremity Inspection - carpals: a normal exam 03/08/2012 None Full Exam - General 1994 Musculoskeletal upper extremity Inspection - metacarpales: swelling 03/08/2012 None Full Exam - General 1994 Integument inspection of skin Overall: no rash, lesions 03/08/2012 None Full Exam - General 1994 Psychiatric orientation/consciousness Overall: oriented to person, place and time 09/28/2011 None Full Exam - General 1994 Psychiatric mood and affect Overall: normal mood and affect 09/28/2011 None Full Exam - General 1994 Neurologic gait Overall: no ataxia, no unsteadiness 09/28/2011 None Full Exam - General 1994 Neurologic cranial nerves Overall: crainial nerves 2 - 12 grossly intact 09/28/2011 None Full Exam - General 1994 Integument inspection of skin Overall: no rash, lesions 09/28/2011 None Full Exam - General 1994 Musculoskeletal upper extremity Inspection - metacarpales: swelling 09/28/2011 None Full Exam - General 1994 Musculoskeletal upper extremity Inspection - carpals: a normal exam 09/28/2011 None Full Exam - General 1994 Abdomen abdominal exam Overall: no tenderness 09/28/2011 None Full Exam - General 1994 Abdomen abdominal exam Overall: normal bowel sounds 09/28/2011 None Full Exam - General 1994 Cardiovascular auscultation of heart Overall: regular rate 09/28/2011 None Full Exam - General 1994 Cardiovascular auscultation of heart Overall: normal heart sounds 09/28/2011 None Full Exam - General 1994 Respiratory auscultation Overall: breath sounds clear bilaterally 09/28/2011 None Full Exam - General 1994 Respiratory respiratory effort/rhythm Overall: normal rate 09/28/2011 None Full Exam - General 1994 Respiratory respiratory effort/rhythm Overall: no retractions 09/28/2011 None Full Exam - General 1994 Ears/Nose/Throat oral cavity/pharynx/larynx Overall: oropharyngeal mucosa clear 09/28/2011 None Full Exam - General 1994 Ears/Nose/Throat oral cavity/pharynx/larynx Overall: no masses 09/28/2011 None Full Exam - General 1994 Ears/Nose/Throat oral cavity/pharynx/larynx Overall: oral mucosa clear 09/28/2011 None Full Exam - General 1994 Constitutional general appearance Overall: well nourished 09/28/2011 None Full Exam - General 1994 Constitutional general appearance Overall: well developed 09/28/2011 None Full Exam - General 1994 Constitutional general appearance Overall: in no acute distress 09/28/2011 None Full Exam - General 1994 Eyes pupils and irises Overall: pupils equal, round, reactive to light and accomodation 09/28/2011 None Full Exam - ENT Ears/Nose/Throat otoscopic exam Left external auditory canal: a normal exam 06/27/2011 None Full Exam - ENT Ears/Nose/Throat oropharynx Overall: oral mucosa clear 06/27/2011 None Full Exam - ENT Face and Head inspection of face/head Overall: no scars, lesions, masses 06/27/2011 None Full Exam - ENT Ears/Nose/Throat nasal mucosa, septum, turbinates Overall: nasal mucosa clear 06/27/2011 None Full Exam - ENT Ears/Nose/Throat lips/ teeth/gingiva Overall: benign lips 06/27/2011 None Full Exam - ENT Eyes ocular motility Overall: extraocular movement intact 06/27/2011 None Full Exam - ENT Neck inspection of neck Overall: normal size None Full Exam - ENT Neck inspection of neck Overall: normal appearance 06/27/2011 None Full Exam - ENT Face and Head palpation Left frontal sinus: tender 06/27/2011 None Full Exam - ENT Face and Head palpation Right frontal sinus: tender 06/27/2011 None Full Exam - ENT Respiratory auscultation Overall: breath sounds clear bilaterally 06/27/2011 None Full Exam - ENT Cardiovascular auscultation of heart Overall: normal heart sounds 06/27/2011 None Full Exam - ENT Cardiovascular auscultation of heart Overall: regular rate 06/27/2011 None Full Exam - ENT Cardiovascular auscultation of heart Overall: no murmurs 06/27/2011 None Full Exam - ENT Lymphatic palpation of lymph nodes Overall: shotty lymphadenopathy 06/27/2011 None Full Exam - ENT Ears/Nose/Throat otoscopic exam Right external auditory canal: a normal exam 06/27/2011 None Full Exam - ENT Integument inspection of skin Overall: no rash, lesions 06/27/2011 None Full Exam - ENT Musculoskeletal gait and station Overall: normal gait 06/27/2011 None Full Exam - ENT Musculoskeletal gait and station Overall: normal station 06/27/2011 None Full Exam - ENT Neurologic cranial nerves /coordination Overall: cranial nerves 2- 12 grossly intact 06/27/2011 None Full Exam - ENT Musculoskeletal head and neck Overall: head atraumatic 06/27/2011 None Full Exam - ENT Abdomen abdominal exam Overall: normal bowel sounds 06/27/2011 None Full Exam - ENT Abdomen abdominal exam Overall: no tenderness 06/27/2011 None Full Exam - ENT Ears/Nose/Throat external ear and nose Overall: normal appearance 06/27/2011 None Full Exam - ENT Constitutional general appearance Overall: well nourished 06/27/2011 None Full Exam - ENT Constitutional general appearance Overall: well developed 06/27/2011 None Full Exam - ENT Constitutional general appearance Overall: in no acute distress 06/27/2011 None Full Exam - ENT Ears/Nose/Throat otoscopic exam Left tympanic membrane: air -fluid level 06/27/2011 None Full Exam - ENT Ears/Nose/Throat otoscopic exam Right tympanic membrane: air-fluid level 06/27/2011 None Procedures Procedure Codes Date ADMIN INFLUENZA VIRUS VAC CPT-4: G0008 06/28/2018 FLU VAC NO PRSV 4 KARI 3 YRS+ Formatting Model/CDA Sections, Assigned to/Juana Ji CPT-4: [id number] 06/28/2018 DRAIN/INJECT JOINT/BURSA CPT-4: 87675 01/29/2018 TRIAMCINOLONE ACET INJ NOS CPT-4: J3301 01/29/2018 PPPS, SUBSEQ VISIT CPT -4: G0439 01/08/2018 THER/PROPH/DIAG INJ SC/IM CPT-4: 64149 08/21/2017 TRIAMCINOLONE ACET INJ NOS CPT-4: J3301 08/21/2017 ADMIN INFLUENZA VIRUS VAC CPT-4: G0008 07/18/2017 FLU VACC PRSV FREE INC ANTIG CPT-4: 68994 07/18/2017 TRIAMCINOLONE ACET INJ NOS CPT-4: J3301 06/30/2017 TRIAMCINOLONE ACET INJ NOS CPT-4: J3301 05/09/2017 THER/PROPH/DIAG INJ SC/IM CPT-4: 77578 05/09/2017 TRIAMCINOLONE ACET INJ NOS CPT-4: J3301 01/30/2017 PPPS, SUBSEQ VISIT CPT -4: G0439 01/02/2017 ADMIN INFLUENZA VIRUS VAC CPT-4: G0008 07/13/2016 FLU VACC PRSV FREE INC ANTIG CPT-4: 30768 07/13/2016 ADMIN INFLUENZA VIRUS VAC CPT-4: G0008 07/10/2015 FLU VACC 4 KARI 3 YRS PLUS IM Formatting Model/CDA Sections, Assigned to/Juana Ji SNOMED CT: [id number] CPT-4: [id number] 07/10/2015 TRIAMCINOLONE ACET INJ NOS CPT-4: J3301 05/29/2015 ROCEPHIN, PER 250 MG CPT-4: J0696 05/29/2015 THER/PROPH/DIAG INJ SC/IM CPT-4: 43193 10/15/2014 TRIAMCINOLONE ACET INJ NOS CPT-4: J3301 10/15/2014 ROCEPHIN, PER 250 MG CPT-4: J0696 10/15/2014 THER/PROPH/DIAG INJ SC/IM CPT-4: 15320 02/17/2014 TRIAMCINOLONE ACET INJ NOS CPT-4: J3301 02/17/2014 ROCEPHIN, PER 250 MG CPT-4: J0696 12/05/2013 ADMIN INFLUENZA VIRUS VAC CPT-4: G0008 07/09/2013 FLULAVAL VACC, 3 YRS & >, IM CPT-4: Q2036 07/09/2013 ROCEPHIN, PER 250 MG CPT-4: J0696 10/23/2012 PRESCRIP TRANSMIT VIA ERX SY CPT-4: G8553 10/23/2012 ROUTINE VENIPUNCTURE CPT-4: 39432 03/14/2012 ADMIN INFLUENZA VIRUS VAC CPT-4: G0008 07/05/2011 FLULAVAL VACC, 3 YRS & >, IM CPT-4: Q2036 07/05/2011 ROUTINE VENIPUNCTURE CPT-4: 88372 06/28/2011 PRESCRIP TRANSMIT VIA ERX SY CPT-4: G8553 06/27/2011 Vital Signs Date Vital 11/19/2018 Blood Pressure 1: 134/56 Code : 8480-6 BMI: 31.1 Code : 65035-0 Heart Rate 1 : 88 bpm Height: 5'2" SpO2: 98% Weight: 170 lbs 11/07/2018 Blood Pressure 1: 140/70 Code : 8480-6 BMI: 31.1 Code : 74803-8 Heart Rate 1 : 91 bpm Height: 5'2" SpO2: 99% Weight: 170 lbs 09/04/2018 Blood Pressure 1: 140/80 Code : 8480-6 BMI: 31.3 Code : 31806-2 Heart Rate 1 : 82 bpm Height: 5'2" SpO2: 95% Weight: 171 lbs 07/10/2018 Blood Pressure 1: 144/46 Code : 8480-6 BMI: 31.5 Code : 70164-9 Heart Rate 1 : 86 bpm Height: 5'2" SpO2: 97% Weight: 172 lbs 06/19/2018 Blood Pressure 1: 150/80 Code : 8480-6 BMI: 31.5 Code : 60826-5 Heart Rate 1 : 94 bpm Height: 5'2" SpO2: 96% Weight: 172 lbs 6 oz 01/29/2018 Blood Pressure 1: 148/66 Code : 8480-6 BMI: 31.8 Code : 34485-8 Heart Rate 1 : 80 bpm Height: 5'2" SpO2: 96% Weight: 174 lbs 01/08/2018 Blood Pressure 1: 122/72 Code : 8480-6 BMI: 32.0 Code : 19578-6 Heart Rate 1 : 79 bpm Height: 5'2" SpO2: 99% Weight: 175 lbs 08/21/2017 Blood Pressure 1: 162/78 Code : 8480-6 BMI: 32.2 Code : 27864-0 Heart Rate 1 : 82 bpm Height: 5'2" SpO2: 97% Temperature: 36.6 (C) / 97.8 (F) Weight: 176 lbs 07/18/2017 Blood Pressure 1: 136/70 Code : 8480-6 BMI: 31.9 Code : 51792-6 Heart Rate 1 : 81 bpm Height: 5'2" SpO2: 96% Weight: 174 lbs 8 oz 06/30/2017 Blood Pressure 1: 128/74 Code : 8480-6 BMI: 31.8 Code : 07027-3 Heart Rate 1 : 89 bpm Height: 5'2" SpO2: 97% Weight: 174 lbs 05/08/2017 Blood Pressure 1: 148/82 Code : 8480-6 BMI: 30.9 Code : 20382-6 Heart Rate 1 : 79 bpm Height: 5'2" SpO2: 95% Weight: 169 lbs 02/14/2017 Blood Pressure 1: 126/72 Code : 8480-6 Heart Rate 1: 76 bpm Height: 5'2" SpO2: 97% Weight: 01/31/2017 Blood Pressure 1: 154/80 Code : 8480-6 BMI: 32.0 Code : 98824-4 Heart Rate 1 : 81 bpm Height: 5'2" SpO2: 97% Weight: 175 lbs 01/30/2017 Blood Pressure 1: 136/78 Code : 8480-6 Heart Rate 1: 92 bpm Height: 5'2" SpO2: 96% Temperature: 37.4 (C) / 99.3 (F) Weight: 01/02/2017 Blood Pressure 1: 146/66 Code : 8480-6 BMI: 31.8 Code : 90512-6 Heart Rate 1 : 81 bpm Height: 5'2" SpO2: 98% Weight: 174 lbs 12/29/2016 Blood Pressure 1: 140/78 Code : 8480-6 BMI: 31.8 Code : 51294-0 Heart Rate 1 : 88 bpm Height: 5'2" SpO2: 97% Weight: 174 lbs 03/24/2016 Blood Pressure 1: 132/88 Code : 8480-6 BMI: 31.6 Code : 01835-0 Heart Rate 1 : 91 bpm Height: 5'2" SpO2: 99% Weight: 173 lbs 09/25/2015 Blood Pressure 1: 112/60 Code : 8480-6 BMI: 31.3 Code : 43226-3 Heart Rate 1 : 85 bpm Height: 5'2" SpO2: 97% Weight: 171 lbs 08/24/2015 Blood Pressure 1: 142/60 Code : 8480-6 BMI: 30.9 Code : 69370-6 Heart Rate 1 : 94 bpm Height: 5'2" SpO2: 97% Weight: 169 lbs 06/12/2015 Blood Pressure 1: 122/64 Code : 8480-6 BMI: 31.1 Code : 86857-0 Heart Rate 1 : 91 bpm Height: 5'2" SpO2: 97% Weight: 170 lbs 05/29/2015 Blood Pressure 1: 150/78 Code : 8480-6 BMI: 31.6 Code : 37929-6 Heart Rate 1 : 79 bpm Height: 5'2" SpO2: 93% Weight: 173 lbs 03/26/2015 Blood Pressure 1: 124/82 Code : 8480-6 BMI: 31.8 Code : 58866-6 Heart Rate 1 : 80 bpm Height: 5'2" Respiratory Rate: 20 bpm Weight: 174 lbs 03/17/2015 Blood Pressure 1: 128/78 Code : 8480-6 BMI: 31.8 Code : 85405-8 Heart Rate 1 : 84 bpm Height: 5'2" Respiratory Rate: 20 bpm Weight: 174 lbs 10/15/2014 Blood Pressure 1: 130/64 Code : 8480-6 BMI: 32.6 Code : 52268-0 Heart Rate 1 : 80 bpm Height: 5'2" Weight: 178 lbs 04/10/2014 Blood Pressure 1: 128/70 Code : 8480-6 BMI: 31.6 Code : 57720-8 Heart Rate 1 : 80 bpm Height: 5'2" Weight: 173 lbs 02/17/2014 Blood Pressure 1: 108/58 Code : 8480-6 BMI: 32.0 Code : 19571-7 Heart Rate 1 : 80 bpm Height: 5'2" Temperature: 37.4 (C) / 99.3 (F) Weight: 175 lbs 12/05/2013 Blood Pressure 1: 144/80 Code : 8480-6 Heart Rate 1: 72 bpm SpO2: 98% Temperature: 36.9 (C) / 98.4 (F) Weight: 177 lbs 09/25/2013 Blood Pressure 1: 136/82 Code : 8480-6 BMI: 32.7 Code : 65671-5 Heart Rate 1 : 84 bpm Height: 5'2" Weight: 179 lbs 07/09/2013 Blood Pressure 1: 144/70 Code : 8480-6 BMI: 32.0 Code : 33526-6 Heart Rate 1 : 76 bpm Height: 5'2" Weight: 175 lbs 2013 Blood Pressure 1: 128/72 Code : 8480-6 BMI: 31.8 Code : 29639-9 Heart Rate 1 : 68 bpm Height: 5'2" Weight: 174 lbs 03/22/2013 Blood Pressure 1: 128/68 Code : 8480-6 BMI: 31.8 Code : 02383-8 Heart Rate 1 : 68 bpm Height: 5'2" Weight: 174 lbs 02/28/2013 Blood Pressure 1: 128/72 Code : 8480-6 BMI: 31.5 Code : 65169-2 Heart Rate 1 : 80 bpm Height: 5'2" Weight: 172 lbs 10/23/2012 Blood Pressure 1: 124/78 Code : 8480-6 Heart Rate 1: 68 bpm Temperature: 36.8 (C) / 98.2 (F) Weight: 172 lbs 03/08/2012 Blood Pressure 1: 124/68 Code : 8480-6 Heart Rate 1: 80 bpm Weight: 171 lbs 09/28/2011 Blood Pressure 1: 112/58 Code : 8480-6 BMI: 31.6 Code : 36838-2 Heart Rate 1 : 76 bpm Height: 5'2" Respiratory Rate: 16 bpm Weight: 173 lbs 06/27/2011 Blood Pressure 1: 117/61 Code : 8480-6 BMI: 30.4 Code : 45612-4 Heart Rate 1 : 86 bpm Height: 5'3" Weight: 171 lbs 8 oz Functional Status No Functional Status data History of Present Illness Symptom Name Status Result Effective Date Notes Quality chronic 11/19 None Quality primary hypertension 11/19/2018 None Onset and Resolution ongoing 11/19/2018 None Onset of Symptom during adulthood 11/19/2018 None Blood Pressure Values not checking blood pressure at home 11/19/2018 None Alleviating Factors medication 11/19/2018 None Pertinent Findings dizziness 11/19/2018 a little bit Pertinent Findings dyspnea 11/19/2018 "I always am" Pertinent Findings edema 11/19/2018 None Location right ear None Quality acute 2018 None Onset and Resolution ongoing 11/19/2018 None Onset of Symptom weeks ago 11/19/2018 None Triggers no known triggers 11/19/2018 None Onset and Resolution ongoing 11/07/2018 None Pertinent Findings dizziness 11/07/2018 a little bit Pertinent Findings dyspnea 11/07/2018 "I always am" Location right ear None Quality acute 2018 None Onset and Resolution ongoing 11/07/2018 None Onset of Symptom weeks ago 11/07/2018 None Triggers no known triggers 11/07/2018 None Quality primary hypertension 11/07/2018 None Quality chronic 11/07 None Onset of Symptom during adulthood 11/07/2018 None Blood Pressure Values not checking blood pressure at home 11/07/2018 None Pertinent Findings edema 11/07/2018 None Alleviating Factors medication 11/07/2018 None hypertension Quality intermittent 09/04/2018 None hypertension Onset and Resolution ongoing 09/04/2018 None hypertension Blood Pressure Values patient checking blood pressure at home - did not bring in readings 09/04/2018 has someone at home checking hypertension Pertinent Findings anxiety 09/04/2018 None hypertension Pertinent Findings Denies dizziness 09/04/2018 None hypertension Pertinent Findings dyspnea 09/04/2018 "I always am" cough Location in the throat 09/04/2018 None cough Quality blood-tinged 09/04/2018 post nasal drainage that occurs intermittently and she feels like it is coming from her sinus passages. She has discussed with her ENT cough Triggers post nasal drip 09/04/2018 None back pain Location lumbar-sacral spine 07/10/2018 None back pain Quality aching 07/10/2018 None back pain Quality constant 07/10/2018 None back pain Onset and Resolution sudden in onset 07/10/2018 None back pain Onset of Symptom 24 hours ago 07/10/2018 None back pain Frequency of Episodes constant 07/10/2018 None back pain Radiating down the right leg 07/10/2018 None rash Onset and Resolution ongoing 07/10/2018 None rash Onset of Symptom 2 months ago 07/10/2018 None rash Pertinent Findings itching 07/10/2018 None urinary retention/hesitancy Quality intermittent 07/10/2018 None urinary retention/hesitancy Quality reduced force of stream 07/10/2018 None abnormal test results Detailed Test Result(s) _ 06/19/2018 None abnormal test results Abnormal Indicator high 06/19/2018 None back pain Location lumbar-sacral spine 06/19/2018 None back pain Quality aching 06/19/2018 None back pain Quality constant 06/19/2018 None back pain Onset and Resolution sudden in onset 06/19/2018 None back pain Onset of Symptom 24 hours ago 06/19/2018 None back pain Frequency of Episodes constant 06/19/2018 None back pain Radiating down the right leg 06/19/2018 None rash Location-Major in a generalized area 06/19/2018 right buttock rash Color red 2017 None rash Onset and Resolution ongoing 06/19/2018 None rash Onset of Symptom 2 months ago 06/19/2018 None rash Pertinent Findings itching 06/19/2018 None back pain Location lumbar-sacral spine 01/29/2018 None back pain Quality constant 01/29/2018 None back pain Quality aching 01/29/2018 None back pain Onset and Resolution sudden in onset 01/29/2018 None back pain Onset of Symptom 24 hours ago 01/29/2018 None back pain Frequency of Episodes constant 01/29/2018 None back pain Radiating down the right leg 01/29/2018 None Annual Medicare Wellness Exam Depression or Hopelessness some of the time 01/08/2018 None Annual Medicare Wellness Exam Depression (last 6 months) some of the time 01/08/2018 None Annual Medicare Wellness Exam Social & Emotional Support usually 01/08/2018 None Annual Medicare Wellness Exam Describe Your Health fair 01/08/2018 None Annual Medicare Wellness Exam Motor Vehicle Safety always fastens seat belt: yes 01/08/2018 None Annual Medicare Wellness Exam Smoking and Tobacco Use non smoker 01/08/2018 None Annual Medicare Wellness Exam Alcohol Use does not drink any alcohol 01/08/2018 None Annual Medicare Wellness Exam Motor Vehicle Safety drives after drinking: no 01/08/2018 None Annual Medicare Wellness Exam Motor Vehicle Safety rides with someone who has been drinking: no 01/08 None Annual Medicare Wellness Exam Aspirin Use yes 01/08/2018 None Annual Medicare Wellness Exam Blood Glucose (self reported) don't know 01/08/2018 None Annual Medicare Wellness Exam Hemaglobin A-1C (self reported ) never checked 01/08/2018 None Annual Medicare Wellness Exam Blood Pressure (self reported ) don't know 01/08/2018 None Annual Medicare Wellness Exam Exercise Habits exercises 3 days per week 01/08/2018 works at [employer] Annual Medicare Wellness Exam Handling Stress often has problems coping 01/08/2018 None Annual Medicare Wellness Exam Hours of Sleep 6-7 01/08/2018 None Annual Medicare Wellness Exam Interaction with Friends yes 01/08/2018 None Annual Medicare Wellness Exam Interests & Pleasure almost all of the time 01/08/2018 None Annual Medicare Wellness Exam Life Satisfaction satisfied 01/08/2018 None Annual Medicare Wellness Exam Nutrition servings of fried food / high fat foods per day: 2 2017 None Annual Medicare Wellness Exam Nutrition servings of high fiber / whole grain per day: 0-1 01/08/2018 None Annual Medicare Wellness Exam Cholesterol (self reported) diagnosed with elevated cholesterol 2017 None Annual Medicare Wellness Exam Nutrition servings of vegetables / fruit per day: 0-1 01/08/2018 None Annual Medicare Wellness Exam Stress some of the time 01/08/2018 None Annual Medicare Wellness Exam Sun Exposure protects skin when outdoors: yes 01/08/2018 None sinus congestion Location frontal sinuses 08/21/2017 None sinus congestion Quality constant 08/21/2017 None sinus congestion Quality fullness 08/21/2017 None sinus congestion Quality pressure 08/21/2017 None sinus congestion Onset and Resolution sudden in onset 08/21/2017 None sinus congestion Onset of Symptom 5 days ago 08/21/2017 None sinus congestion Frequency of Episodes daily 08/21/2017 None sinus congestion Pertinent Findings cough 08/21/2017 None sinus congestion Pertinent Findings decreased energy level 08/21/2017 None sinus congestion Pertinent Findings hoarseness 08/21/2017 None sore throat Location diffusely 08/21/2017 None sore throat Quality aching 08/21/2017 None sore throat Quality dull 08/21/2017 None sore throat Quality intermittent 08/21/2017 None sore throat Onset and Resolution sudden in onset 08/21/2017 None sore throat Onset of Symptom 5 days ago 08/21/2017 None sore throat Frequency of Episodes daily 08/21/2017 None earache Location both ears 08/21/2017 None earache Onset and Resolution sudden in onset 08/21/2017 None earache Onset of Symptom 5 days ago 08/21/2017 None earache Frequency of Episodes daily 08/21/2017 None cough Quality acute None cough Quality improving 07/18/2017 None cough Quality intermittent 07/18/2017 None cough Quality productive 07/18/2017 None cough Pertinent Findings sputum production 07/18/2017 (clear) pruritus Quality improving 07/18/2017 None pruritus Quality intermittent 07/18/2017 None pruritus Onset and Resolution ongoing 07/18/2017 None pruritus Onset of Symptom 6+ months ago 07/18/2017 None pruritus Triggers no known triggers 07/18/2017 None pruritus Alleviating Factors treatment medication 07/18/2017 None hypertension Quality primary hypertension 07/18/2017 None hypertension Onset and Resolution ongoing 07/18/2017 None hypertension Onset of Symptom during adulthood 07/18/2017 None hypertension Blood Pressure Values not checking blood pressure at home 07/18/2017 None hypertension Pertinent Findings dizziness 07/18/2017 occasionally sciatica Location on the right 07/18/2017 None sciatica Quality acute 07/18/2017 None sciatica Onset and Resolution sudden in onset 07/18/2017 None sciatica Onset of Symptom 1 weeks ago 07/18/2017 None sciatica Alleviating Factors medication 07/18/2017 None cough Location in the lung 06/30/2017 None cough Quality constant 06/30/2017 None cough Quality productive 06/30/2017 None cough Onset and Resolution ongoing 06/30/2017 None cough Onset of Symptom 1 months ago 06/30/2017 None cough Frequency of Episodes daily 06/30/2017 None cough Pertinent Findings chest discomfort 06/30/2017 None cough Pertinent Findings sputum production 06/30/2017 None cough Significant Medical Conditions pulmonary disease 06/30/2017 None cough Significant Medications albuterol 06/30/2017 None back pain Location in the left lower back area 05/08/2017 None back pain Quality aching 05/08/2017 None back pain Quality intermittent 05/08/2017 None back pain Onset and Resolution sudden in onset 05/08/2017 None back pain Onset of Symptom 1 weeks ago 05/08/2017 None back pain Radiating the flank 05/08/2017 None cough Quality acute None cough Quality intermittent 02/14/2017 None cough Quality productive 02/14/2017 None cough Pertinent Findings sputum production 02/14/2017 (clear) pruritus Quality improving 02/14/2017 None pruritus Quality intermittent 02/14/2017 None pruritus Onset and Resolution ongoing 02/14/2017 None pruritus Onset of Symptom 6+ months ago 02/14/2017 None pruritus Triggers no known triggers 02/14/2017 None pruritus Alleviating Factors treatment medication 02/14/2017 None hypertension Onset and Resolution ongoing 02/14/2017 None hypertension Onset of Symptom during adulthood 02/14/2017 None hypertension Blood Pressure Values not checking blood pressure at home 02/14/2017 None hypertension Pertinent Findings dizziness 02/14/2017 occasionally hypertension Quality primary hypertension 02/14/2017 None cough Quality improving 02/14/2017 None pruritus Location-Head/Neck on the scalp 02/14/2017 None sciatica Location on the right 02/14/2017 None sciatica Quality acute 02/14/2017 None sciatica Onset and Resolution sudden in onset 02/14/2017 None sciatica Onset of Symptom 1 weeks ago 02/14/2017 None sciatica Alleviating Factors medication 02/14/2017 None pruritus Quality intermittent 01/31/2017 None pruritus Onset and Resolution ongoing 01/31/2017 None pruritus Onset of Symptom 6+ months ago 01/31/2017 None cough Location in the larynx 01/31/2017 None cough Location in the lung 01/31/2017 None cough Location in the throat 01/31/2017 None cough Quality acute None cough Onset and Resolution sudden in onset 01/31/2017 None cough Limitation on Activities moderately limits activities 01/31/2017 None cough Pertinent Findings hoarseness 01/31/2017 None cough Pertinent Findings nasal congestion 01/31/2017 None cough Pertinent Findings sputum production 01/31/2017 ([facility]) cough Quality intermittent 01/31/2017 None cough Quality productive 01/31/2017 None cough Onset of Symptom 4 days ago 01/31/2017 None pruritus Location-Head/Neck on the scalp 01/31/2017 None pruritus Quality improving 01/31/2017 None pruritus Triggers no known triggers 01/31/2017 None pruritus Alleviating Factors treatment medication 01/31/2017 None cough Location in the lung 01/30/2017 None cough Location in the throat 01/30/2017 None cough Location in the larynx 01/30/2017 None cough Quality acute None cough Onset and Resolution sudden in onset 01/30/2017 None cough Quality dry None cough Onset of Symptom 3 days ago 01/30/2017 None cough Limitation on Activities moderately limits activities 01/30/2017 None cough Pertinent Findings chest discomfort 01/30/2017 None cough Pertinent Findings dyspnea 01/30/2017 None cough Pertinent Findings facial pain 01/30/2017 mouth pain cough Pertinent Findings fever 01/30/2017 None cough Pertinent Findings heartburn 01/30/2017 None cough Pertinent Findings hoarseness 01/30/2017 None cough Pertinent Findings muscle aches 01/30/2017 None cough Pertinent Findings nasal congestion 01/30/2017 None cough Pertinent Findings post nasal drip 01/30/2017 None cough Pertinent Findings Denies sputum production 01/30/2017 None cough Pertinent Findings weakness 01/30/2017 None sinus congestion Onset and Resolution sudden in onset 01/30/2017 None sinus congestion Onset of Symptom 3 days ago 01/30/2017 None sinus congestion Pertinent Findings cough 01/30/2017 None sinus congestion Pertinent Findings decreased energy level 01/30/2017 None sinus congestion Pertinent Findings facial pain 01/30/2017 mouth pain sinus congestion Pertinent Findings fever 01/30/2017 None sinus congestion Pertinent Findings nasal crusting 01/30/2017 None sinus congestion Location on both sides 01/30/2017 None sinus congestion Quality acute 01/30/2017 None sinus congestion Severity moderate 01/30/2017 None Annual Medicare Wellness Exam Alcohol Use does not drink any alcohol 01/02/2017 None Annual Medicare Wellness Exam Aspirin Use yes 01/02/2017 None Annual Medicare Wellness Exam Blood Glucose (self reported) desireable (below 100) 01/02/2017 None Annual Medicare Wellness Exam Blood Pressure (self reported ) low / normal (120/80) 01/02/2017 None Annual Medicare Wellness Exam Cholesterol (self reported) desireable (below 200) 01/02/2017 None Annual Medicare Wellness Exam Depression (last 6 months) some of the time 01/02/2017 None Annual Medicare Wellness Exam Depression or Hopelessness almost never 01/02/2017 None Annual Medicare Wellness Exam Describe Your Health good 01/02/2017 None Annual Medicare Wellness Exam Exercise Habits exercises 4 days per week 01/02/2017 None Annual Medicare Wellness Exam Exercise Habits exercises 40 minutes per day 01/02/2017 None Annual Medicare Wellness Exam Handling Stress usually monik effectively 01/02/2017 None Annual Medicare Wellness Exam Hemaglobin A-1C (self reported ) don't know 01/02/2017 None Annual Medicare Wellness Exam Hours of Sleep 6 01/02/2017 None Annual Medicare Wellness Exam Interaction with Friends yes 01/02/2017 None Annual Medicare Wellness Exam Interests & Pleasure daily 01/02/2017 None Annual Medicare Wellness Exam Life Satisfaction very satisfied 01/02/2017 None Annual Medicare Wellness Exam Motor Vehicle Safety always fastens seat belt: y 01/02/2017 None Annual Medicare Wellness Exam Motor Vehicle Safety drives after drinking: n 01/02/2017 None Annual Medicare Wellness Exam Motor Vehicle Safety rides with someone who has been drinking: n 2016 None Annual Medicare Wellness Exam Nutrition servings of fried food / high fat foods per day: 2 2016 None Annual Medicare Wellness Exam Nutrition servings of high fiber / whole grain per day: 1 01/02/2017 None Annual Medicare Wellness Exam Nutrition servings of vegetables / fruit per day: 4 01/02/2017 None Annual Medicare Wellness Exam Smoking and Tobacco Use non smoker 01/02/2017 None Annual Medicare Wellness Exam Social & Emotional Support always 01/02/2017 None Annual Medicare Wellness Exam Stress most of the time 01/02/2017 None Annual Medicare Wellness Exam Sun Exposure protects skin when outdoors: y 01/02/2017 None epistaxis Quality intermittent 12/29/2016 None epistaxis Onset and Resolution ongoing 12/29/2016 None hypertension Onset and Resolution ongoing 12/29/2016 None hypertension Onset of Symptom during adulthood 12/29/2016 None hypertension Blood Pressure Values not checking blood pressure at home 12/29/2016 None hypertension Pertinent Findings dizziness 12/29/2016 occasionally hypertension Pertinent Findings dyspnea 12/29/2016 "always"- with exertion hypertension Pertinent Findings edema 12/29/2016 mildly epistaxis Location in the right nare 12/29/2016 None epistaxis Onset of Symptom 7-8 years ago 12/29/2016 None epistaxis Intervention Required pressure 12/29/2016 None epistaxis Intervention Required packing 12/29/2016 None epistaxis Triggers dry weather 12/29/2016 None sinus congestion Quality acute 12/29/2016 None sinus congestion Quality fullness 12/29/2016 None pruritus Location-Major on the head 12/29/2016 None pruritus Location-Head/Neck on the scalp 12/29/2016 None pruritus Quality intermittent 12/29/2016 None pruritus Triggers no known triggers 12/29/2016 None pruritus Alleviating Factors no alleviating factors 12/29/2016 None pruritus Onset and Resolution ongoing 12/29/2016 None pruritus Onset of Symptom 6+ months ago 12/29/2016 None epistaxis Location in the right nare 04/01/2016 None epistaxis Quality intermittent 04/01/2016 None epistaxis Quality worsening 04/01/2016 None epistaxis Onset and Resolution sudden in onset 04/01/2016 None epistaxis Onset and Resolution ongoing 04/01/2016 since October epistaxis Onset of Symptom 2 hours ago 04/01/2016 None epistaxis Pertinent Findings cough 04/01/2016 None epistaxis Pertinent Findings Denies emesis 04/01/2016 None epistaxis Pertinent Findings Denies nausea 04/01/2016 None Hospital Follow Up _ musculoskeletal disorder 03/24/2016 None Hospital Follow Up Quality intermittent 03/24/2016 None Hospital Follow Up Pertinent Findings Denies pain 03/24/2016 None Hospital Follow Up Location neck pain, UTI 03/24/2016 None Hospital Follow Up Severity mild 03/24/2016 None Hospital Follow Up Significant Medical Conditions acute illness 03/24/2016 UTI Hospital Follow Up Alleviating Factors medication 03/24/2016 None Hospital Follow Up _ Other: bleeding nose 09/25/2015 None Hospital Follow Up Quality acute 09/25/2015 None Hospital Follow Up Onset and Resolution resolved 09/25/2015 None Hospital Follow Up Severity moderate 09/25/2015 None Hospital Follow Up Pertinent Findings Denies pain 09/25/2015 None Hospital Follow Up Pertinent Findings Denies fever 09/25/2015 None cough Location in the throat 08/24/2015 None cough Quality dry 06/2015 None cough Onset and Resolution sudden in onset 08/24/2015 None cough Onset of Symptom 3 days ago 08/24/2015 None cough Limitation on Activities does not limit activities 08/24/2015 None cough Frequency of Episodes daily 08/24/2015 None earache Location both ears 08/24/2015 None earache Onset and Resolution sudden in onset 08/24/2015 None earache Onset of Symptom 3 days ago 08/24/2015 None sore throat Location on both sides 08/24/2015 None sore throat Quality dull 08/24/2015 None sore throat Quality aching 08/24/2015 None sore throat Onset and Resolution sudden in onset 08/24/2015 None sore throat Onset of Symptom 3 days ago 08/24/2015 None sore throat Frequency of Episodes daily 08/24/2015 None cough Triggers known allergens 08/24/2015 None cough Alleviating Factors OTC medications 08/24/2015 None cough Pertinent Findings Denies dyspnea 08/24/2015 None cough Pertinent Findings Denies ill contacts 08/24/2015 None cough Pertinent Findings Denies lethargy 08/24/2015 None earache Quality acute 08/24/2015 None well woman exam (65+ years) Pap Smear last normal performed 5-6 years 06/12/2015 None well woman exam (65+ years) Menstrual History menopause at age _ 06/12/2015 complete hysterectomy age 49 well woman exam (65+ years) Nutrition and Exercise overweight 06/12/2015 None well woman exam (65+ years) Health Guidance regular mammogram 06/12/2015 None well woman exam (65+ years) Immunizations influenza vaccine (annually over 50 y.o.) 06/12/2015 None sinus congestion Onset and Resolution sudden in onset 05/29/2015 None sinus congestion Onset of Symptom 1 days ago 05/29/2015 None sinus congestion Severity severe 05/29/2015 None sinus congestion Frequency of Episodes daily 05/29/2015 None sinus congestion Timing of Episodes all day long 05/29/2015 None sinus congestion Triggers no known associated factors 05/29/2015 None sinus congestion Pertinent Findings cough 05/29/2015 None sinus congestion Pertinent Findings facial pain 05/29/2015 None sinus congestion Pertinent Findings hoarseness 05/29/2015 None sinus congestion Pertinent Findings nasal obstruction 05/29/2015 None sinus congestion Location on both sides 05/29/2015 None cough Quality constant 05/29/2015 None cough Quality hacking 05/29/2015 None cough Quality worsening 05/29/2015 None cough Onset and Resolution sudden in onset 05/29/2015 None cough Onset of Symptom 1 days ago 05/29/2015 None cough Limitation on Activities moderately limits activities 05/29/2015 None cough Frequency of Episodes daily 05/29/2015 None cough Alleviating Factors inhaled medications 05/29/2015 None cough Pertinent Findings nasal congestion 05/29/2015 None rash Location-Trunk on the left side of the abdomen 05/29/2015 None rash Quality constant 05/29/2015 None rash Color red 2014 None rash Frequency of Episodes daily 05/29/2015 None rash Triggers no known triggers 05/29/2015 None rash Severity moderate 05/29/2015 None rash Pertinent Findings tenderness 05/29/2015 None skin lesion Onset and Resolution gradual in onset 03/26/2015 None skin lesion Onset and Resolution worse during the day 03/26/2015 rubs on clothes skin lesion Severity mild 03/26/2015 None skin lesion Frequency of Episodes daily 03/26/2015 None hyperlipidemia Onset of Symptom during adulthood 03/17/2015 None hyperlipidemia Severity moderate 03/17/2015 None hyperlipidemia Frequency of Episodes unchanged 03/17/2015 None arthropod bite Location on left buttock 03/17/2015 None arthropod bite Quality acute 03/17/2015 None arthropod bite Onset and Resolution ongoing 03/17/2015 None arthropod bite Onset of Symptom 3 weeks ago 03/17/2015 None arthropod bite Limitation on Activities does not limit activities 03/17/2015 None hyperlipidemia Significant Medications fibrates 03/17/2015 None hyperlipidemia Alleviating Factors medication 03/17/2015 None arthropod bite Pertinent Findings erythema 03/17/2015 mild arthropod bite Alleviating Factors medication 03/17/2015 topical anti-itch arthropod bite Triggers outdoor exposure 03/17/2015 None sore throat Onset and Resolution ongoing 10/15/2014 None sore throat Location on both sides 10/15/2014 hurts a little when she swallows. Mainly complaining of her mouth burning. sore throat Quality burning 10/15/2014 mouth sore throat Onset of Symptom _ days ago 10/15/2014 last night sore throat Pertinent Findings cough 10/15/2014 coughing a lot, worried about asthma exacerbation. sore throat Pertinent Findings Denies fever 10/15/2014 None cough Quality productive 10/15/2014 green- blood tinged cough Onset and Resolution ongoing 10/15/2014 None cough Significant Medical Conditions asthma 10/15/2014 None cough Alleviating Factors inhaled medications 10/15/2014 albuterol, but is using more than normal due to coughing so much cough Pertinent Findings dyspnea 10/15/2014 None cough Pertinent Findings Denies fever 10/15/2014 None sinus congestion Severity mild 10/15/2014 None sinus congestion Pertinent Findings Denies fever 10/15/2014 None earache Location both ears 10/15/2014 burning in both ears started 2 days ago back pain Location in the right lower back area 10/15/2014 hip area radiating down leg back pain Onset of Symptom 3 weeks ago 10/15/2014 had pain twice over 3 weeks back pain Alleviating Factors rest 10/15/2014 None back pain Radiating down the right leg 10/15/2014 None back pain Pertinent Findings Denies fever 10/15/2014 None nosebleed Frequency of Episodes daily 04/10/2014 None nosebleed Location in the right nare 04/10/2014 None nosebleed Onset of Symptom 1 1/2 weeks ago 04/10/2014 None nosebleed Pertinent Findings cough 04/10/2014 None nosebleed Pertinent Findings recurrent epistaxis 04/10/2014 None nosebleed Quality acute 04/10/2014 None sore throat Location on both sides 02/17/2014 started some cipro that she had at home on monday sore throat Quality acute 02/17/2014 states filled 8 pots with potting soil and could smell mold in the dirt sore throat Pertinent Findings cough 02/17/2014 non prod sore throat Pertinent Findings fever 02/17/2014 None sore throat Pertinent Findings hoarseness 02/17/2014 None sore throat Pertinent Findings nasal congestion 02/17/2014 headache, clear drainage sore throat Onset of Symptom 4 days ago 02/17/2014 ears hurt, some shortness of breath. sore throat Onset and Resolution ongoing 02/17/2014 None sore throat Triggers weather change 02/17/2014 None sore throat Triggers allergens 02/17/2014 None sinus congestion Onset of Symptom 5 days ago 12/05/2013 None sinus congestion Pertinent Findings cough 12/05/2013 None sinus congestion Pertinent Findings decreased energy level 12/05/2013 None sinus congestion Pertinent Findings fever 12/05/2013 None sinus congestion Pertinent Findings facial pain 12/05/2013 None sinus congestion Onset and Resolution ongoing 12/05/2013 None sinus congestion Severity mild 12/05/2013 None sinus congestion Severity moderate 12/05/2013 None sinus congestion Timing of Episodes all day long 12/05/2013 None sinus congestion Significant Medical Conditions allergic rhinitis 12/05/2013 None sinus congestion Triggers no known associated factors 12/05/2013 None hyperlipidemia Onset and Resolution ongoing 09/25/2013 None hyperlipidemia Severity moderate 09/25/2013 None hyperlipidemia Significant Family History hyperlipidemia 09/25/2013 None hyperlipidemia Quality chronic 09/25/2013 None hyperlipidemia Pertinent Findings Denies fever 09/25/2013 None hyperlipidemia Pertinent Findings Denies nausea 09/25/2013 None hyperlipidemia Pertinent Findings Denies weight loss 09/25/2013 None hyperlipidemia Alleviating Factors medication 09/25/2013 None hyperlipidemia Exacerbating Factors diet 09/25/2013 None shortness of breath Quality chronic 07/09/2013 None shortness of breath Onset and Resolution ongoing 07/09/2013 None shortness of breath Exacerbating Factors medication 07/09/2013 states the symbicort did not help at all fatigue Onset and Resolution gradual in onset 2013 None fatigue Onset and Resolution ongoing 2013 None fatigue Limitation on Activities moderately limits activities 2013 patient has cut hours back to 5 1/2 hours three days a week fatigue Exacerbating Factors activity 2013 None fatigue Quality worsening 2013 None arm pain Location left arm 03/22/2013 None arm pain Radiating the left upper extremity 03/22/2013 None arm pain Quality dull pain 03/22/2013 None arm pain Quality constant 03/22/2013 None arm pain Quality aching 03/22/2013 None arm pain Quality acute 03/22/2013 None arm pain Onset and Resolution sudden in onset 03/22/2013 None arm pain Onset and Resolution ongoing 03/22/2013 None arm pain Onset of Symptom 2 weeks ago 03/22/2013 None arm pain Limitation on Activities moderately limits activities 03/22/2013 None arm pain Quality sharp pain 03/22/2013 describes sudden sharp pain as being shocked arm pain Mechanism of injury unknown 03/22/2013 None arm pain Pertinent Findings female 03/22/2013 None arm pain Pertinent Findings right hand dominant 03/22/2013 None arm pain Pertinent Findings pain with movement 03/22/2013 None arm pain Pertinent Findings Denies swelling 03/22/2013 None fatigue Onset and Resolution gradual in onset 02/28/2013 None fatigue Onset and Resolution ongoing 02/28/2013 None fatigue Limitation on Activities moderately limits activities 02/28/2013 patient has cut hours back to 5 1/2 hours three days a week fatigue Pertinent Findings insomnia 02/28/2013 patient complains of hot flashes and urinary frequency during the night. says she may be up 3-4 times per night. fatigue Quality worsening 02/28/2013 None fatigue Exacerbating Factors activity 02/28/2013 None fatigue Timing of Episodes in the afternoon 02/28/2013 patient states she may take a nap during the afternoon but still feels very tired. fatigue Timing of Episodes in the evening 02/28/2013 None sinus congestion Triggers no known associated factors 10/23/2012 None sinus congestion Pertinent Findings cough 10/23/2012 None sinus congestion Pertinent Findings decreased energy level 10/23/2012 None sinus congestion Pertinent Findings facial pain 10/23/2012 None sinus congestion Pertinent Findings Denies vomiting 10/23/2012 None sinus congestion Alleviating Factors medication 10/23/2012 sinus congestion pills otc sinus congestion Location on both sides 10/23/2012 None sinus congestion Quality acute 10/23/2012 None sinus congestion Onset and Resolution ongoing 10/23/2012 None sinus congestion Onset of Symptom 1 weeks ago 10/23/2012 None sinus congestion Severity moderate 10/23/2012 None sinus congestion Significant Medical Conditions allergic rhinitis 10/23/2012 None osteoarthritis Alleviating Factors NSAIDs (Celebrex) 03/08/2012 None osteoarthritis Disability Currently working 03/08/2012 Works 3 days per week at [employer], is retired osteoarthritis Frequency of Episodes unchanged 03/08/2012 None osteoarthritis Limitation on Activities moderately limits activities 03/08/2012 None osteoarthritis Location knee 03/08/2012 None osteoarthritis Location Cervical spine 03/08/2012 None osteoarthritis Severity moderate 03/08/2012 None osteoarthritis Significant Medical Conditions asthma 03/08/2012 None osteoarthritis Significant Medications Celebrex (celecoxib) 03/08/2012 None nasal allergies Location in both nares 03/08/2012 None nasal allergies Onset and Resolution ongoing 03/08/2012 None nasal allergies Severity moderate 03/08/2012 None nasal allergies Significant Medical Conditions asthma 03/08/2012 None nasal allergies Significant Medications antihistamines 03/08/2012 Takes OTC Zyrtec daily nasal allergies Alleviating Factors medication 03/08/2012 None dyspnea Quality chronic 09/28/2011 None dyspnea Quality chest tightness 09/28/2011 None dyspnea Quality shortness of breath 09/28/2011 None dyspnea Limitation on Activities moderately limits activities 09/28/2011 None dyspnea Frequency of Episodes weekly 09/28/2011 None dyspnea Significant Medical Conditions pulmonary disease 09/28/2011 None dyspnea Triggers activity 09/28/2011 None dyspnea Triggers cold weather 09/28/2011 None dyspnea Alleviating Factors inhalers / nebulizer 09/28/2011 None dyspnea Alleviating Factors rest 09/28/2011 None dyspnea Exacerbating Factors exertion 09/28/2011 None dyspnea Pertinent Findings Denies aspiration 09/28/2011 None dyspnea Pertinent Findings Denies chest discomfort 09/28/2011 None dyspnea Pertinent Findings cough 09/28/2011 None dyspnea Pertinent Findings Denies hypoventilation 09/28/2011 None dyspnea Pertinent Findings ill contacts 09/28/2011 None headache Location in the frontal area 06/27/2011 None headache Quality acute 06/27/2011 None headache Onset and Resolution gradual in onset 06/27/2011 None headache Onset of Symptom 1 weeks ago 06/27/2011 None headache Limitation on Activities does not limit activities 06/27/2011 None headache Frequency of Episodes increasing 06/27/2011 None headache Significant Medical Conditions allergic rhinitis 06/27/2011 None headache Alleviating Factors medication 06/27/2011 None sinus pain Location in the bilateral frontal sinuses 06/27/2011 None sinus pain Quality acute 06/27/2011 None sinus pain Onset and Resolution gradual in onset 06/27/2011 None sinus pain Onset of Symptom 1 weeks ago 06/27/2011 None sinus pain Severity moderate 06/27/2011 None sinus pain Frequency of Episodes increasing 06/27/2011 None sinus pain Significant Medical Conditions asthma 06/27/2011 None sinus pain Significant Medical Conditions allergic rhinitis 06/27/2011 None Advance Directives No Advance Directive data Encounters Encounter Performer Location Codes Date ([id number]) 64521 EST. PATIENT, LEVEL III Diagnosis: Postherpetic trigeminal neuralgia[ICD10: B02.22] Deneen Rosenberg MD, [facility] CPT-4: 57428 11/19/2018 ([id number]) 55072 EST. PATIENT, LEVEL III Diagnosis: Chronic obstructive pulmonary disease with (acute) exacerbation[ICD10 : J44.1] Diagnosis: Postherpetic trigeminal neuralgia[ICD10: B02.22] Deneen Rosenberg MD, [facility] CPT-4: 73582 11/07/2018 ([id number]) 65329 EST. PATIENT, LEVEL IV Diagnosis: Essential (primary) hypertension[ICD10: I10] Diagnosis: Chronic frontal sinusitis[ICD10: J32.1] Deneen Rosenberg MD, [facility] CPT-4: 82078 09/04/2018 ([id number]) 70422 EST. PATIENT, LEVEL III Diagnosis: Other retention of urine[ICD10: R33.8] Diagnosis: Mild intermittent asthma with (acute) exacerbation[ICD10: J45.21] Deneen Rosenberg MD, [facility] CPT-4: 54074 07/10/2018 ([id number]) 92872 EST. PATIENT, LEVEL IV Diagnosis: Primary hyperparathyroidism[ICD10: E21.0] Diagnosis: Personal history of other diseases of the musculoskeletal system and connective tissue[ICD10: Z87.39] Deneen Rosenberg MD, [facility] CPT-4: 21844 06/19/2018 31430 EST. PATIENT, LEVEL III Diagnosis: Low back pain[ICD10: M54.5] Diagnosis: Sciatica, right side[ICD10: M54.31] Chastity Rosenberg MD, [facility] CPT-4: 78549 01/29/2018 23484 EST. PATIENT, LEVEL III Diagnosis: Mild intermittent asthma with (acute) exacerbation[ICD10: J45.21] Diagnosis: Cough[ICD10: R05] Diagnosis: Other allergic rhinitis[ICD10: J30.89] Chastity Rosenberg MD, [facility] CPT-4: 63748 08/21/2017 ([id number]) 43210 EST. PATIENT, LEVEL IV Diagnosis: Mild intermittent asthma with (acute) exacerbation[ICD10: J45.21] Diagnosis: Essential (primary) hypertension[ICD10: I10] Diagnosis: Encounter for immunization[ICD10: Z23] Diagnosis: Sciatica, right side[ICD10: M54.31] Diagnosis: Low back pain[ICD10: M54.5] Deneen Rosenberg MD, [facility] CPT- 4: 33336 07/18/2017 ([id number]) 57606 EST. PATIENT, LEVEL III Diagnosis: Cough[ICD10: R05] Diagnosis: Other allergic rhinitis[ICD10: J30.89] Lalitha Rosenberg MD, [facility] CPT-4: 46792 06/30/2017 78821 EST. PATIENT, LEVEL III Diagnosis: Low back pain[ICD10: M54.5] Diagnosis: Dizziness and giddiness[ICD10: R42] Chastity Rosenberg MD, [facility] CPT-4: 29226 05/08/2017 ([id number]) 93342 EST. PATIENT, LEVEL III Diagnosis: Essential (primary) hypertension[ICD10: I10] Diagnosis: Low back pain[ICD10: M54.5] Diagnosis: Sciatica, right side[ICD10: M54.31] Deneen Rosenberg MD, [facility] CPT-4: 79601 02/14/2017 ([id number]) 15102 EST. PATIENT, LEVEL III Diagnosis: Essential (primary) hypertension[ICD10: I10] Deneen Rosenberg MD, [facility] CPT-4: 81589 01/31/2017 ([id number]) 46543 EST. PATIENT, LEVEL III Diagnosis: Cough[ICD10: R05] Diagnosis: Acute recurrent maxillary sinusitis[ICD10: J01.01] Lalitha Rosenberg MD, [facility] CPT-4: 95683 01/30/2017 ([id number]) 94460 EST. PATIENT, LEVEL III Diagnosis: Essential (primary) hypertension[ICD10: I10] Diagnosis: Mild intermittent asthma with (acute) exacerbation[ICD10: J45.21] Diagnosis: Tinea corporis[ICD10: B35.4] Deneen Rosenberg MD, [facility] CPT- 4: 78762 12/29/2016 ([id number]) Miscellaneous no charge Diagnosis: Epistaxis[ICD10: R04.0] Chastity Rosenberg MD, [facility] CPT-4: 69599 04/01/2016 ([id number]) 75108 EST. PATIENT, LEVEL IV Diagnosis: Essential (primary) hypertension[ICD10: I10] Diagnosis: Mild intermittent asthma, uncomplicated[ICD10: J45.20] Diagnosis: Insomnia, unspecified[ICD10: G47.00] Lalitha Rosenberg MD, [facility] CPT-4: 93444 03/24/2016 38157 EST. PATIENT, LEVEL III Diagnosis: Mild intermittent asthma with (acute) exacerbation[ICD10: J45.21] Diagnosis: Epistaxis[ICD10: R04.0] Chastity Rosenberg MD, [facility] CPT-4: 71701 09/25/2015 ([id number]) 51789 EST. PATIENT, LEVEL III Diagnosis: Acute recurrent maxillary sinusitis[ICD10: J01.01] Diagnosis: Allergic rhinitis due to pollen[ICD10: J30.1] Lalitha Rosenberg MD, [facility] CPT-4: 84272 08/24/2015 ([id number]) 66013 EST. PATIENT, LEVEL IV Diagnosis: Well woman exam[ICD9: V70.0] Diagnosis: Encounter for screening for malignant neoplasm of vagina[ICD10: Z12.72] Diagnosis: Pelvic and perineal pain[ICD10: R10.2] Lalitha Rosenberg MD, [facility] CPT-4: 16038 06/12/2015 ([id number]) 00270 EST. PATIENT, LEVEL III Diagnosis: Tinea corporis[ICD9: 110.5] Diagnosis: ACUTE MAXILLARY SINUSITIS[ICD9: 461.0] Lalitha Rosenberg MD, [facility] CPT-4: 48447 05/29/2015 ([id number]) 50293 EST. PATIENT, LEVEL IV Diagnosis: Skin tag[ICD9: 701.9] Diagnosis: Seborrheic keratoses[ICD9: 702.19] Diagnosis: Comedone[ICD9: 706.1] Diagnosis: IMPACTED CERUMEN[ICD9: 380.4] Rosemarie Rosenberg MD, [facility] CPT-4 : 70697 03/26/2015 ([id number]) 87324 EST. PATIENT, LEVEL IV Diagnosis: ESSENTIAL HYPERTENSION[ICD9: 401.9] Diagnosis: HYPERLIPIDEMIA[ICD9: 272.4] Diagnosis: Fatigue[ICD9: 780.79] Diagnosis: INSECT BITE HIP/LEG[ICD9: 916.4] Rosemarie Rosenberg MD, [facility] CPT- 4: 31507 03/17/2015 ([id number]) 71196 EST. PATIENT, LEVEL IV Diagnosis: Acute bronchitis[ICD9: 466.0] Diagnosis: MALAISE AND FATIGUE[ICD9: 780.79] Diagnosis: COUGH[ICD9: 786.2] Diagnosis: CHRONIC OBSTRUCTIVE ASTHMA WITH EXACERBATION[ICD9: 493.22] Deneen Rosenberg MD , [facility] CPT-4: 84113 10/15/2014 ([id number]) 32660 EST. PATIENT, LEVEL III Diagnosis: Acute anterior epistaxis[ICD9: 784.7] Diagnosis: ESSENTIAL HYPERTENSION[ICD9: 401.9] Lalitha Rosenberg MD, [facility] CPT-4: 85639 04/10/2014 ([id number]) 83121 EST. PATIENT, LEVEL III Diagnosis: Acute bronchitis[ICD9: 466.0] Diagnosis: COUGH[ICD9: 786.2] Diagnosis: Nasal congestion[ICD9: 478.19] Deneen Rosenberg MD, [facility] CPT- 4: 73322 02/17/2014 ([id number]) 93274 EST. PATIENT, LEVEL III Diagnosis: ACUTE SINUSITIS[ICD9: 461.9] Lalitha Rosenberg MD [facility] CPT-4: 94730 12/05/2013 ([id number]) 11949 EST. PATIENT, LEVEL IV Diagnosis: HYPERLIPIDEMIA[ICD9: 272.4] Diagnosis: CHRONIC OBSTRUCTIVE ASTHMA[ICD9: 493.20] Diagnosis: SLEEP APNEA NOS[ICD9: 780.57] Diagnosis: GENERAL OSTEOARTHROSIS-MULT[ICD9: 715.09] Deneen Rosenberg MD, [facility] CPT-4: 37788 09/25/2013 ([id number]) 74181 EST. PATIENT, LEVEL III Diagnosis: CHRONIC OBSTRUCTIVE ASTHMA[ICD9: 493.20] Deneen Rosenberg MD [facility] CPT-4: 13965 07/09/2013 ([id number]) Miscellaneous no charge Diagnosis: CHRONIC OBSTRUCTIVE ASTHMA[ICD9: 493.20] Deneen Rosenberg MD [facility] CPT-4: 35132 06/11/2013 ([id number]) 60054 EST. PATIENT, LEVEL IV Diagnosis: CHRONIC OBSTRUCTIVE ASTHMA[ICD9: 493.20] Diagnosis: Sleep apnea[ICD9: 780.57] Deneen Rosenberg MD, [facility] CPT-4: 74264 2013 ([id number]) 88793 EST. PATIENT, LEVEL IV Diagnosis: CHRONIC OBSTRUCTIVE ASTHMA[ICD9: 493.20] Diagnosis: OSTEOARTH NOS-UNSPEC[ICD9: 715.90] Diagnosis: MALAISE AND FATIGUE[ICD9: 780.79] Deneen Rosenberg MD, [facility] CPT-4: 59856 03/22/2013 ([id number]) 48383 EST. PATIENT, LEVEL IV Diagnosis: HYPERLIPIDEMIA[ICD9: 272.4] Diagnosis: OSTEOARTH NOS-UNSPEC[ICD9: 715.90] Diagnosis: MALAISE AND FATIGUE[ICD9: 780.79] Deneen Rosenberg MD, [facility] CPT-4: 19371 02/28/2013 ([id number]) 27794 EST. PATIENT, LEVEL III Diagnosis: ACUTE SINUSITIS[ICD9: 461.9] Diagnosis: COUGH[ICD9: 786.2] Lalitha Rosenberg MD, [facility] CPT-4: 20718 10/23/2012 ([id number]) 28365 EST. PATIENT, LEVEL IV Diagnosis: ESSENTIAL HYPERTENSION[SNOMED: [id number]] Diagnosis: HYPERLIPIDEMIA[ICD9: 272.4] Diagnosis: CHRONIC OBSTRUCTIVE ASTHMA[ICD9: 493.20] Deneen Rosenberg MD, [facility] CPT-4: 26522 03/08/2012 ([id number]) 28459 EST. PATIENT, LEVEL IV Diagnosis: CHRONIC OBSTRUCTIVE ASTHMA[ICD9: 493.20] Diagnosis: Primary generalized (osteo)arthritis[ICD9: 715.09] Diagnosis: PAIN IN LIMB[ICD9: 729.5] Deneen Rosenberg MD, [facility] CPT-4: 84289 09/28/2011 64302 EST. PATIENT, LEVEL IV Diagnosis: ACUTE SINUSITIS[ICD9: 461.9] Diagnosis: Asthma[ICD9: 493.90] Diagnosis: Osteoarthritis[ICD9: 715.90] Diagnosis: Hyperlipidemia[ICD9: 272.4] Lalitha Rosenberg MD, [facility] CPT-4: 82278 06/27/2011 Plan of Care Planned Activity Notes Codes Status Date Visit Plan: Post-herpetic neuralgia - pt to stop acyclovir - finish dose of steroid - monitor symptoms, call if symptoms return. 11/19/2018 Patient Education: Patient Medication Summary Completed 11/19/2018 Visit Plan: Trigeminal Neuralgia - due to shingles - rx for prednisone taper and valcyvlovir 1 gram bid. COPD - rx for albuterol and proair. 11/07/2018 Appointment: Deneen Rosenberg WPtel: [address] [place], [place] [id number] (15 min) Moderate 11/07/2018 Patient Education: Patient Medication Summary Completed 11/07/2018 Visit Plan: Hypertension - well controlled - continue with current medications, continue with no added salt diet. Pt has been encouraged to exercise daily. The pt has been advised to call the office if there are any acute concerns about change in blood pressure readings at home. Sinusitis - Recommended pt to have diflucan x 10 days. 09/04/2018 Appointment: [facility] [phone] [id number] [place] (15 min) Moderate 09/04/2018 Patient Education: Patient Medication Summary Completed 09/04/2018 Patient Education: Hypertension Completed 09/04/2018 Visit Plan: Asthma - chronic problem for this patient. We have reviewed chronic treatment strategy, symptom control, and plans for acute exacerbations. No changes today to the current treatment plan as the patient is stable, monitor for acute changes 07/10/2018 Appointment: [facility] [phone] [id number] [place] (15 min) Moderate 07/10/2018 Patient Education: Patient Medication Summary Completed 07/10/2018 Appointment: Injection 06/28/2018 Patient Education: Patient Medication Summary Completed 06/28/2018 Visit Plan: Elevated PTH - parathyroid nuclear medicine uptake at [facility] in waterflow - 06/26, , are open Osteopenia - discussed the pt's dx and the fact that insurance will not pay for prolia due to lack of dx of Osteoporosis. 06/19/2018 Appointment: [facility] [phone] [id number] [place] (15 min) Moderate 06/19/2018 Patient Education: Patient Medication Summary Completed 06/19/2018 Appointment: Lab Draw 06/15/2018 Patient Education: Patient Medication Summary Completed 06/15/2018 Visit Plan: Low back pain- the patient was instructed in appropriate posture. The pt is to use prn antiinflammatories to manage acute pain. The patient is to call the office if the pain is worsening or does not improve. Sciatica- exercises discussed with the patient, pt to continue with antiinflammatories. Pt is to call if the symptoms do not improve or if they worsen. Joint Injection - Pt was given post - injection instructions. The pt has been advised to use anti-inflammatories post injection today, ice to the injected site, call if redness, warmth, or increased pain occurs at the site of injection. 01/29/2018 Appointment: [facility] [phone] [id number] [place] (30 min) Complex 01/29/2018 Patient Education: Patient Medication Summary Completed 01/29/2018 Visit Plan: Medicare Exam - today we discussed the patients past history, immunizations, preventative exams/evaluations - colonoscopy, fecal occult blood testing, routine labs for renal function, glucose, cholesterol, osteoporosis evaluations, cardiovascular testing and cancer screenings. We have also discussed mental health and the signs/symptoms of depression. The patient was advised of home safety evaluations and the need to make sure that as the aging process continues, we need to be aware of different ways to make the home a safer place to reside. The patient has also been counseled that exercise is necessary - and of utmost importance as we age to help decrease fall risk and to maintain independence in the home. Today we discussed the need for the patient to create paperwork for Advanced directives as well as for the patient to provide this office with a copy of her DOPA paperwork for health care surrogate. 01/08/2018 Appointment: Lalitah Alcala WPtel: [phone] [facility] - Annual Wellness Visit 01/08/2018 Patient Education: Patient Medication Summary Completed 01/08/2018 Visit Plan: Allergies - chronic - recommended pt to use allergy medication as prescribed. Pt has been counseled as to the appropriate use of the medication. Pt to call if allergy symptoms are not controlled with the medication. If using nasal spray, instructions as follows: Nasal spray- use twice daily, one spray per nostril twice daily, after 30 minutes, rinse out nose with saline spray.. Use opposite hand per nostril to spray in the nasal steroid allergy spray. Asthma Exacerbation - Asthma is a chronic problem for this patient, however, the pt is experiencing an acute exacerbation of the chronic Asthma symptoms. Pt is to receive appropriate treatment as an out patient, but the pt is aware that if symptoms worsen or do not improve, to call [facility] for instructions, or go to the EMERGENCY ROOM if the symptoms are beyond acute control with rescue medications. We have reviewed chronic treatment strategy, symptom control, and plans for acute exacerbations. No changes today to the current treatment plan as the patient is stable, monitor for acute changes. 08/21/2017 Patient Education: Patient Medication Summary Completed 08/21/2017 Patient Education: Obesity Completed 08/21/2017 Visit Plan: Hypertension - well controlled - continue with current medications, continue with no added salt diet. Pt has been encouraged to exercise daily. The pt has been advised to call the office if there are any acute concerns about change in blood pressure readings at home. Back pain - I have recommended patient to get an MRI of lumbar/sacral spine Asthma - chronic problem for this patient. We have reviewed chronic treatment strategy, symptom control, and plans for acute exacerbations. No changes today to the current treatment plan as the patient is stable, monitor for acute changes 07/18/2017 Appointment: [facility]el[phone] (15 min) Moderate 07/18/2017 Patient Education: Patient Medication Summary Completed 07/18/2017 Patient Education: Obesity Completed 07/18/2017 Patient Education: Hypertension Completed 07/18/2017 Visit Plan: Allergies - chronic - recommended pt to use allergy medication as prescribed. Pt has been counseled as to the appropriate use of the medication. Pt to call if allergy symptoms are not controlled with the medication. If using nasal spray, instructions as follows: Nasal spray- use twice daily, one spray per nostril twice daily, after 30 minutes, rinse out nose with saline spray.. Use opposite hand per nostril to spray in the nasal steroid allergy spray. Cough-sputum culture if symptoms persist 06/30/2017 Appointment: [facility]cal[phone] (15 min) Moderate 06/30/2017 Patient Education: Patient Medication Summary Completed 06/30/2017 Appointment: Nurse Visit 05/09/2017 Patient Education: Patient Medication Summary Completed 05/09/2017 Visit Plan: Low back pain- the patient was instructed in appropriate posture, need for weight loss to alleviate abdominal obesity that is worsening the patient's back pain.. The pt is to use prn antiinflammatories to manage acute pain. The patient is to call the office if the pain is worsening or does not improve. dizziness/light headedness in the mornings - ongoing for months - pt is to eat a snack with protein before bed, pt is to monitor her blood pressures and heart rates and pump her feet prior to getting out of bed - pt is to notify clinic if symptoms do not improve, if they worsen, or with any other questions or concerns. 05/08/2017 Appointment: Chastity Chavira [facility]el[phone] [facility] (30 min) Complex 05/08/2017 Patient Education: Patient Medication Summary Completed 05/08/2017 Patient Education: Obesity Completed 05/08/2017 Visit Plan: Hypertension - well controlled - continue with current medications, continue with no added salt diet. Pt has been encouraged to exercise daily. The pt has been advised to call the office if there are any acute concerns about change in blood pressure readings at home. Sciatica- exercises discussed with the patient, pt to continue with antiinflammatories. Pt is to call if the symptoms do not improve or if they worsen. 02/14/2017 Appointment: Deneen Rosenberg WPtel: [facility] (15 min) Moderate 02/14/2017 Patient Education: Patient Medication Summary Completed 02/14/2017 Care Plan: Referral Order SNOMED-CT : [id number] Pending 02/14/2017 Appointment: Deneen Rosenberg WPtel: [facility] (15 min) Moderate 02/01/2017 Visit Plan: Hypertension - well controlled - continue with current medications, continue with no added salt diet. Pt has been encouraged to exercise daily. The pt has been advised to call the office if there are any acute concerns about change in blood pressure readings at home. Cough - improved from yesterday. 01/31/2017 Appointment: Deneen Rosenberg WPtel: [facility] [place] (15 min) Moderate 01/31/2017 Patient Education: Patient Medication Summary Completed 01/31/2017 Patient Education: Obesity Completed 01/31/2017 Patient Education: Hypertension Completed 01/31/2017 Visit Plan: Sinusitis - Pt has acute infection - pain in face, maxillary region, Pt informed to use decongestant, RX given to patient, sinus rinses also recommended. Call if symptoms do not show improvement. 01/30/2017 Appointment: Lalitha Alcala WPtel: [facility]3 [phone] (15 min) Moderate 01/30/2017 Patient Education: Patient Medication Summary Completed 01/30/2017 Visit Plan: Medicare Exam - today we discussed the patients past history, immunizations, preventative exams/evaluations - colonoscopy, fecal occult blood testing, routine labs for renal function, glucose, cholesterol, osteoporosis evaluations, cardiovascular testing and cancer screenings. We have also discussed mental health and the signs/symptoms of depression. The patient was advised of home safety evaluations and the need to make sure that as the aging process continues, we need to be aware of different ways to make the home a safer place to reside. The patient has also been counseled that exercise is necessary - and of utmost importance as we age to help decrease fall risk and to maintain independece in the home. Today we discussed the need for the patient to create paperwork for Advanced directives as well as for the patient to provide this office with a copy of her DOPA paperwork for health care surrogate. 01/02/2017 Patient Education: Patient Medication Summary Completed 01/02/2017 Visit Plan: Hypertension - well controlled - continue with current medications, continue with no added salt diet. Pt has been encouraged to exercise daily. The pt has been advised to call the office if there are any acute concerns about change in blood pressure readings at home. Asthma - chronic - continue with current treatment. Rash - Ketoconazole shampoo. 12/29/2016 Appointment: Deneen Rosenberg [facility]Ptel: [phone] (15 min) Moderate 12/29/2016 Patient Education: Patient Medication Summary Completed 12/29/2016 Patient Education: Obesity Completed 12/29/2016 Patient Education: Hypertension Completed 12/29/2016 Patient Education: Patient Medication Summary Completed 12/26/2016 Appointment: Injection 07/13/2016 Patient Education: Patient Medication Summary Completed 07/13/2016 Visit Plan: Pt went to ED from office, stating she does not think she will be able to get to her ENT in [place]. 04/01/2016 Appointment: Lalitha Alcala WPtel: [phone] [phone] (30 min) Complex 04/01/2016 Patient Education: Patient Medication Summary Completed 04/01/2016 Visit Plan: Hypertension - well controlled - continue with current medications, continue with no added salt diet. Pt has been encouraged to exercise daily. The pt has been advised to call the office if there are any acute concerns about change in blood pressure readings at home. Asthma - chronic problem for this patient. We have reviewed chronic treatment strategy, symptom control, and plans for acute exacerbations. No changes today to the current treatment plan as the patient is stable, monitor for acute changes. Restart tudorza Insomnia - Pt has been advised to increase the light in the house during the day, and start dimming the lights during the evening hours. Pt has been advised to cut out caffeine after 5pm. Daytime napping worsens night time insomnia. Refill temazepam to use as needed when traveling 03/24/2016 Appointment: Lalitha Alcala WPtel: [address] [place], [place] [phone] (30 min) [facility] 03/24/2016 Patient Education: Patient Medication Summary Completed 03/24/2016 Visit Plan: epistaxis - Pt states that she has had no more bleeding from her nose since she went to the ED. Continue to monitor for symptoms and notify clinic with any concerns. Pt states that she has a family history of Factor V Leiden clotting disorder, but that she has never been tested. Pt states that she would like to think about getting tested before making any decisions. Asthma - chronic problem for this patient. We have reviewed chronic treatment strategy, symptom control, and plans for acute exacerbation. No changes today to the current treatment plan as the patient is stable, monitor for acute changes 09/25/2015 Appointment: (15 min) Moderate 09/25/2015 Patient Education: Patient Medication Summary Completed 09/25/2015 Visit Plan: Sinusitis - Pt has acute infection - pain in face, maxillary region, Pt informed to use decongestant, RX given to patient, sinus rinses also recommended. Call if symptoms do not show improvement. Allergies - chronic - recommended pt to use allergy medication as prescribed. Pt has been counseled as to the appropriate use of the medication. Pt to call if allergy symptoms are not controlled with the medication. If using nasal spray , instructions as follows: Nasal spray- use twice daily, one spray per nostril twice daily, after 30 minutes, rinse out nose with saline spray.. Use opposite hand per nostril to spray in the nasal steroid allergy spray. 08/24/2015 Patient Education: Patient Medication Summary Completed 08/24/2015 Appointment: Nurse Visit 07/10/2015 Patient Education: Patient Medication Summary Completed 07/10/2015 Visit Plan: Well Adult Female - exam completed. Pt will be called with results of her testing. She was advised to continue with yearly annual exams. Call if any abnormal gynecologic issues during the next year, otherwise, RTC yearly or prn. Vaginal dryness-samples of estrace cream 06/12/2015 Visit Plan: Well Adult Female - exam completed. Pt will be called with results of her testing. She was advised to continue with yearly annual exams. Call if any abnormal gynecologic issues during the next year, otherwise, RTC yearly or prn. Vaginal dryness-samples of estrace cream 06/12/2015 Visit Plan: Well Adult Female - exam completed. Pt will be called with results of her testing. She was advised to continue with yearly annual exams. Call if any abnormal gynecologic issues during the next year, otherwise, RTC yearly or prn. Vaginal dryness-samples of estrace cream 06/12/2015 Visit Plan: Well Adult Female - exam completed. Pt will be called with results of her testing. She was advised to continue with yearly annual exams. Call if any abnormal gynecologic issues during the next year, otherwise, RTC yearly or prn. Vaginal dryness-samples of estrace cream 06/12/2015 Visit Plan: Well Adult Female - exam completed. Pt will be called with results of her testing. She was advised to continue with yearly annual exams. Call if any abnormal gynecologic issues during the next year, otherwise, RTC yearly or prn. Vaginal dryness-samples of estrace cream 06/12/2015 Visit Plan: Well Adult Female - exam completed. Pt will be called with results of her testing. She was advised to continue with yearly annual exams. Call if any abnormal gynecologic issues during the next year, otherwise, RTC yearly or prn. Vaginal dryness-samples of estrace cream 06/12/2015 Appointment: (30 min) Complex 06/12/2015 Patient Education: Patient Medication Summary Completed 06/12/2015 Care Plan: PAP Pending 06/12/2015 Visit Plan: Sinusitis - Pt has acute infection - pain in face, maxillary region, Pt informed to use decongestant, RX given to patient, sinus rinses also recommended. Call if symptoms do not show improvement. Rocephin and kenalog injections today in the office Tinea-nystatin powder as directed-call if rash does not resolve or if any worse 05/29/2015 Appointment: (15 min) Moderate 05/29/2015 Patient Education: Patient Medication Summary Completed 05/29/2015 Visit Plan: Cerumen Impaction - The impacted cerumen was removed with the use of water pick. The patient tolerated the procedure without incident and had improvement in hearing Skin tag- Removed. 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 Triple antibiotic ointment applied to each. Comedone to upper back- Apply bactroban BID for 1 week. If continues to drain will refer to general surgery for removal. 03/26/2015 Patient Education: Patient Medication Summary Completed 03/26/2015 Visit Plan: Hypertension - well controlled - continue with current medications, continue with no added salt diet. Pt has been encouraged to exercise daily. The pt has been advised to call the office if there are any acute concerns about change in blood pressure readings at home. Hyperlipidemia - Pt to have labs drawn in the AM after fasting for 8-12 hours. pt has been counseled about appropriate diet, exercise, and need for low fat food choices. I have discussed the need for the patient to take medications as prescribed. If the patient has negative side effects from the medication, they are to CALL the office and not abruptly discontinue the medication without discussion with a practitioner in the office. We will check labs in 3-6 months for follow up on the patient's chronic medical problem and to assure normal liver response to medications. Patient provided with mammogram order. 03/17/2015 Visit Plan: Hypertension - well controlled - continue with current medications, continue with no added salt diet. Pt has been encouraged to exercise daily. The pt has been advised to call the office if there are any acute concerns about change in blood pressure readings at home. Hyperlipidemia - Pt to have labs drawn in the AM after fasting for 8-12 hours. pt has been counseled about appropriate diet, exercise, and need for low fat food choices. I have discussed the need for the patient to take medications as prescribed. If the patient has negative side effects from the medication, they are to CALL the office and not abruptly discontinue the medication without discussion with a practitioner in the office. We will check labs in 3-6 months for follow up on the patient's chronic medical problem and to assure normal liver response to medications. Patient provided with mammogram order. 03/17/2015 Visit Plan: Hypertension - well controlled - continue with current medications, continue with no added salt diet. Pt has been encouraged to exercise daily. The pt has been advised to call the office if there are any acute concerns about change in blood pressure readings at home. Hyperlipidemia - Pt to have labs drawn in the AM after fasting for 8-12 hours. pt has been counseled about appropriate diet, exercise, and need for low fat food choices. I have discussed the need for the patient to take medications as prescribed. If the patient has negative side effects from the medication, they are to CALL the office and not abruptly discontinue the medication without discussion with a practitioner in the office. We will check labs in 3-6 months for follow up on the patient's chronic medical problem and to assure normal liver response to medications. Patient provided with mammogram order. 03/17/2015 Patient Education: Patient Medication Summary Completed 03/17/2015 Patient Education: Hypertension Completed 03/17/2015 Care Plan: COMPLETE CBC AUTOMATED LOINC : 03906-4 Ordered 03/17/2015 Visit Plan: Asthma EXACERBATION - ASTHMA is a chronic problem for this patient, however, the pt is experiencing an acute exacerbation of the ASTHMA. Pt is to receive appropriate treatment as an out patient, but the pt is aware that if symptoms worsen or do not improve, to call [facility] for instructions, or go to the EMERGENCY ROOM if the symptoms are beyond acute control with rescue medications. We have reviewed chronic treatment strategy, symptom control, and plans for acute exacerbations. No changes today to the current treatment plan as the patient is stable, monitor for acute changes. Bronchitis - acute case of bronchitis identified. Pt has been given antibiotics , breathing treatments as appropriate, and pt has been instructed to call if symptoms are not improved, or if symptoms acutely worsen. 10/15/2014 Appointment: Deneen Rosenberg WPtel: [facility] [facility] 10/15/2014 Patient Education: Patient Medication Summary Completed 10/15/2014 Visit Plan: Nasal lesion-recent nosebleeds-recommend bactroban to irritated nare, avoid blowing her nose, and hold aspirin for the next 2 days. Call if bleeding returns. HTN-well controlled-no changes 04/10/2014 Appointment: Other 04/10/2014 Patient Education: Patient Medication Summary Completed 04/10/2014 Visit Plan: Sinusitis - Pt has acute infection - pain in face, maxillary region, Pt informed to use decongestant, RX given to patient, sinus rinses also recommended. Call if symptoms do not show improvement. Bronchitis - acute case of bronchitis identified. Pt has been given antibiotics , breathing treatments as appropriate, and pt has been instructed to call if symptoms are not improved, or if symptoms acutely worsen. 02/17/2014 Patient Education: Patient Medication Summary Completed 02/17/2014 Visit Plan: Sinusitis - Pt has acute infection - pain in face, maxillary region, Pt informed to use decongestant, RX given to patient, sinus rinses also recommended. Call if symptoms do not show improvement. 12/05/2013 Appointment: Lalitha Alcala WPtel: [phone] [id number] 12/05/2013 Patient Education: Patient Medication Summary Completed 12/05/2013 Appointment: Deneen Rosenberg WPtel: [phone] [facility] Follow up 10/01/2013 Visit Plan: Hyperlipidemia - pt has been counseled about appropriate diet, exercise, and need for low fat food choices. I have discussed the need for the patient to take medications as prescribed. If the patient has negative side effects from the medication, they are to CALL the office and not abruptly discontinue the medication without discussion with a practicioner in the office. We will check labs in 3-6 months for follow up on the patient's chronic medical problem and to assure normal liver response to medications. Chronic Asthma- chronic problem for this patient. We have reviewed chronic treatment strategy, symptom control, and plans for acute exacerbations. No changes today to the current treatment plan as the patient is stable, monitor for acute changes. Arthritis- occasionally uncontrolled symptoms- recommend pt to take antiinflammatory as directed for pain control. Use tylenol for break through pain symptoms. Sleep apnea - pt is not interested in CPAP, pt to call if she starts having problems and desires to consider cpap. 09/25/2013 Appointment: Deneen Rosenberg WPtel: [phone] [place] Follow up 09/25/2013 Patient Education: Patient Medication Summary Completed 09/25/2013 Visit Plan: Asthma - chronic problem for this patient. We have reviewed chronic treatment strategy, symptom control, and plans for acute exacerbations. No changes today to the current treatment plan as the patient is stable, monitor for acute changes 07/09/2013 Appointment: Deneen Rosenberg WPtel: [facility] Follow up 07/09/2013 Patient Education: Patient Medication Summary Completed 07/09/2013 Appointment: Lyndsay Rosenbergy WPtel: [facility] Follow up 07/01/2013 Appointment: Lalitha Alcala WPtel: [phone] Lab Draw 06/11/2013 Patient Education: Patient Medication Summary Completed 06/11/2013 Visit Plan: COPD - chronic problem for this patient. We have reviewed chronic treatment strategy, symptom control, and plans for acute exacerbations. No changes today to the current treatment plan as the patient is stable, monitor for acute changes. Will start on symbicort. Sleep apnea with over 53 events per hour per Dr. Peraza's report. He attempted to get the pt to agree with starting a trial of CPAP, but she flatly refused. She states that she will NOT use CPAP, but will consider a trial of humidified oxygen as Dr. Peraza felt that oxygen, although won't treat her sleep apnea, 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 2013 Appointment: ChetDeneen WPtel: [facility] Other 2013 Patient Education: Patient Medication Summary Completed 2013 Visit Plan: Insomnia and possible sleep apnea - Pt has history of asthma - I have recommended that she have several tests perfored, the pt was hesitant at first, but: PT AGREED TO SLEEP STUDY AND PFT'S. WILL GIVE RX FOR MEDICATION TO HELP WITH SLEEP - TEMAZEPAM FOR SLEEP. Left arm and hand pain - may be ascending carpal tunnel related pain - therefore: WILL SEND TO SEE DR. LION FOR LEFT HAND/ARM PAIN - SUSPECT CARPAL TUNNEL ENTRAPMENT. 03/22/2013 Appointment: Deneen Rosenberg WPtel: [facility] [place] Other 03/22/2013 Patient Education: Patient Medication Summary Completed 03/22/2013 Visit Plan: Hyperlipidemia - pt has been counseled about appropriate diet, exercise, and need for low fat food choices. I have discussed the need for the patient to take medications as prescribed. If the patient has negative side effects from the medication, they are to CALL the office and not abruptly discontinue the medication without discussion with a practicioner in the office. We will check labs in 3-6 months for follow up on the patient's chronic medical problem and to assure normal liver response to medications. Pt to hold gemfibrozil x 1 month, also referral to cardiology. OA - chronic - pt to start on glucosamine, monitor symptoms and take tylenol prn for pain. Malais and fatigue - check labs. 02/28/2013 Appointment: Deneen Rosenberg WPtel: [facility] Follow up 02/28/2013 Patient Education: Patient Medication Summary Completed 02/28/2013 Visit Plan: Sinusitis - Pt has acute infection - pain in face, maxillary region, Pt informed to use decongestant, RX given to patient, sinus rinses also recommended. Call if symptoms do not show improvement. Rocephin injection today in the office 10/23/2012 Appointment: Lalitha Alcala WPtel: [phone] [place] Sick 10/23/2012 Patient Education: Patient Medication Summary Completed 10/23/2012 Appointment: Deneen Rosenberg WPtel: [facility] [place] Lab Draw 03/14/2012 Patient Education: Patient Medication Summary Completed 03/14/2012 Patient Education: High Blood Pressure: Essential Hypertension Completed 2011 Visit Plan: Arthritis - plan to refer pt to Dr. Lion for eval and treatment. Chronic Asthma - chronic problem for this patient. We have reviewed chronic treatment strategy, symptom control, and plans for acute exacerbations. No changes today to the current treatment plan as the patient is stable, monitor for acute changes. Hypertension - well controlled - continue with current medications, continue with no added salt diet. Pt has been encouraged to exercise daily. The pt has been advised to call the office if there are any acute concerns about change in blood pressure readings at home. Hyperlipidemia - pt has been counseled about appropriate diet, exercise, and need for low fat food choices. I have discussed the need for the patient to take medications as prescribed. If the patient has negative side effects from the medication, they are to CALL the office and not abruptly discontinue the medication without discussion with a practicioner in the office. We will check labs in 3-6 months for follow up on the patient's chronic medical problem and to assure normal liver response to medications. 03/08/2012 Appointment: Deneen Rosenberg WPtel: [facility] [place] Other 03/08/2012 Patient Education: Patient Medication Summary Completed 03/08/2012 Patient Education: High Blood Pressure: Essential Hypertension Completed 2011 Visit Plan: Asthma- controlled by the current medication.. No change in the treatment at this time. Osteoarthritis- pt has been instructed to use celebrex twice daily on the days that she is working. 09/28/2011 Appointment: Deneen Rosenberg WPtel: [facility] [place] Follow up 09/28/2011 Patient Education: Patient Medication Summary Completed 09/28/2011 Appointment: Deneen Rosenberg WPtel: [facility] [place] Injection 07/05/2011 Patient Education: Patient Medication Summary Completed 07/05/2011 Appointment: Deneen Rosenberg WPtel: [facility]5 [facility] [place] Lab Draw 06/28/2011 Patient Education: Patient Medication Summary Completed 06/28/2011 Visit Plan: Sinusitis - Pt has acute infection - pain in face, maxillary region, Pt informed to use decongestant, RX given to patient, sinus rinses also recommended. Call if symptoms do not show improvement. ASTHMA - symptoms controlled at this time on current treatment plan. Pt has been instructed to continue with use of daily meds and prn treatments. Call if there is an acute change in symptoms. Singulair samples given to pt and rx for refill. Also refilled pulmicort. Sample of dulera 200/5 given for patient to use. Instructed her to call her insurance company to find out what maintainence medications they will cover. Sample and rx for her albuterol rescue inhaler provided as well. Osteoarthritis - Pt with pain that is fairly well controlled on celebrex, but occasional breakthrough of pain. I have recommended use of tylenol prn. Refilled celebrex. Again advised to her to call to see what medications are covered better under her insurance plan. Hyperlipidemia - uncontrolled. Pt has been counseled about current diagnosis, need for changes in diet, low fat and low cholesterol options discussed. Pt needs to start an exercise program as well. The patient has been recommended to continue with niacin and gemfibrozil 600mg bid. Due for labs-orders provided and instructed patient to return to clinic tomorrow or next week for fasting labs. Discussed granddaughter's genetic mutation-factor V leiden and mthfr with Dr. Rosenberg. Patient has not experienced any signs of bleeding disorders or other disease. We will monitor patient and checks labs as indicated. 06/27/2011 Appointment: Lalitha Alcala [facility] [address] [facility] [place] Other 06/27/2011 Patient Education: Patient Medication Summary Completed 06/27/2011 Care Plan: CBC (COMPLETE CBC W/AUTO DIFF WBC) LOINC : 43035-5 Ordered 06/27/2011 Care Plan: CHEM 14 (COMPREHEN METABOLIC PANEL) LOINC : 81266-2 Ordered 06/27/2011 Care Plan: LIPID GRP (LIPID PANEL) LOINC : 58903-6 Ordered 06/27/2011 Care Plan: TSH (ASSAY THYROID STIM HORMONE) Ordered 06/27/2011 Referral: External, Ordering Provider Referral Completed Referral: External, Ordering Provider They will call the patient with appt information. Completed Instructions Comment . Post-herpetic neuralgia - pt to stop acyclovir - finish dose of steroid - monitor symptoms, call if symptoms return. . Asthma - chronic problem for this patient. We have reviewed chronic treatment strategy, symptom control, and plans for acute exacerbations. No changes today to the current treatment plan as the patient is stable, monitor for acute changes HOLD ASPIRIN X 2 DAYS BACTROBAN OINMENT TO RIGHT NARE TWICE DAILY X 5 DAYS CALL IF NOSEBLEEDS PERSIST . Nasal lesion-recent nosebleeds-recommend bactroban to irritated nare, avoid blowing her nose, and hold aspirin for the next 2 days. Call if bleeding returns. HTN-well controlled-no changes DX sinusitis - discussed expected course with the patient, pt advised to call for worsening symptoms, or lack of improvement on prescribed treatment course. Return tomorrow or next week for fasting labs. Regular follow up appointment in 3 months. . Sinusitis - Pt has acute infection - pain in face, maxillary region, Pt informed to use decongestant, RX given to patient, sinus rinses also recommended. Call if symptoms do not show improvement. ASTHMA - symptoms controlled at this time on current treatment plan. Pt has been instructed to continue with use of daily meds and prn treatments. Call if there is an acute change in symptoms. Singulair samples given to pt and rx for refill. Also refilled pulmicort. Sample of dulera 200/5 given for patient to use. Instructed her to call her insurance company to find out what maintainence medications they will cover. Sample and rx for her albuterol rescue inhaler provided as well. Osteoarthritis - Pt with pain that is fairly well controlled on celebrex, but occasional breakthrough of pain. I have recommended use of tylenol prn. Refilled celebrex. Again advised to her to call to see what medications are covered better under her insurance plan. Hyperlipidemia - uncontrolled. Pt has been counseled about current diagnosis, need for changes in diet, low fat and low cholesterol options discussed. Pt needs to start an exercise program as well. The patient has been recommended to continue with niacin and gemfibrozil 600mg bid. Due for labs-orders provided and instructed patient to return to clinic tomorrow or next week for fasting labs. Discussed granddaughter's genetic mutation-factor V leiden and mthfr with Dr. Rosenberg. Patient has not experienced any signs of bleeding disorders or other disease. We will monitor patient and checks labs as indicated. . Low back pain- the patient was instructed in appropriate posture, need for weight loss to alleviate abdominal obesity that is worsening the patient's back pain.. The pt is to use prn antiinflammatories to manage acute pain. The patient is to call the office if the pain is worsening or does not improve. dizziness/light headedness in the mornings - ongoing for months - pt is to eat a snack with protein before bed, pt is to monitor her blood pressures and heart rates and pump her feet prior to getting out of bed - pt is to notify clinic if symptoms do not improve, if they worsen, or with any other questions or concerns. Breathing treatments 3 times a day x 3 days, then twice a day x 3 days, then as needed Methylprednisolone steroid taper - start tomorrow 08/22 Levaquin antibiotic Steroid shot today. . Allergies - chronic - recommended pt to use allergy medication as prescribed. Pt has been counseled as to the appropriate use of the medication. Pt to call if allergy symptoms are not controlled with the medication. If using nasal spray, instructions as follows: Nasal spray- use twice daily, one spray per nostril twice daily, after 30 minutes, rinse out nose with saline spray.. Use opposite hand per nostril to spray in the nasal steroid allergy spray. Asthma Exacerbation - Asthma is a chronic problem for this patient, however, the pt is experiencing an acute exacerbation of the chronic Asthma symptoms. Pt is to receive appropriate treatment as an out patient, but the pt is aware that if symptoms worsen or do not improve, to call [facility] for instructions, or go to the EMERGENCY ROOM if the symptoms are beyond acute control with rescue medications. We have reviewed chronic treatment strategy, symptom control, and plans for acute exacerbations. No changes today to the current treatment plan as the patient is stable, monitor for acute changes. . Well Adult Female - exam completed. Pt will be called with results of her testing. She was advised to continue with yearly annual exams. Call if any abnormal gynecologic issues during the next year, otherwise, RTC yearly or prn. Vaginal dryness-samples of estrace cream . Well Adult Female - exam completed. Pt will be called with results of her testing. She was advised to continue with yearly annual exams. Call if any abnormal gynecologic issues during the next year, otherwise, RTC yearly or prn. Vaginal dryness-samples of estrace cream . Hypertension - well controlled - continue with current medications, continue with no added salt diet. Pt has been encouraged to exercise daily. The pt has been advised to call the office if there are any acute concerns about change in blood pressure readings at home. Sinusitis - Recommended pt to have diflucan x 10 days. . Well Adult Female - exam completed. Pt will be called with results of her testing. She was advised to continue with yearly annual exams. Call if any abnormal gynecologic issues during the next year, otherwise, RTC yearly or prn. Vaginal dryness-samples of estrace cream . Well Adult Female - exam completed. Pt will be called with results of her testing. She was advised to continue with yearly annual exams. Call if any abnormal gynecologic issues during the next year, otherwise, RTC yearly or prn. Vaginal dryness-samples of estrace cream . Asthma- controlled by the current medication.. No change in the treatment at this time. Osteoarthritis- pt has been instructed to use celebrex twice daily on the days that she is working. . Sinusitis - Pt has acute infection - pain in face, maxillary region, Pt informed to use decongestant, RX given to patient, sinus rinses also recommended. Call if symptoms do not show improvement. . Hypertension - well controlled - continue with current medications, continue with no added salt diet. Pt has been encouraged to exercise daily. The pt has been advised to call the office if there are any acute concerns about change in blood pressure readings at home. Back pain - I have recommended patient to get an MRI of lumbar/sacral spine Asthma - chronic problem for this patient. We have reviewed chronic treatment strategy, symptom control, and plans for acute exacerbations. No changes today to the current treatment plan as the patient is stable, monitor for acute changes . epistaxis - Pt states that she has had no more bleeding from her nose since she went to the ED. Continue to monitor for symptoms and notify clinic with any concerns. Pt states that she has a family history of Factor V Leiden clotting disorder, but that she has never been tested. Pt states that she would like to think about getting tested before making any decisions. Asthma - chronic problem for this patient. We have reviewed chronic treatment strategy, symptom control, and plans for acute exacerbation. No changes today to the current treatment plan as the patient is stable, monitor for acute changes . Asthma EXACERBATION - ASTHMA is a chronic problem for this patient, however, the pt is experiencing an acute exacerbation of the ASTHMA. Pt is to receive appropriate treatment as an out patient, but the pt is aware that if symptoms worsen or do not improve, to call [facility] for instructions, or go to the EMERGENCY ROOM if the symptoms are beyond acute control with rescue medications. We have reviewed chronic treatment strategy, symptom control, and plans for acute exacerbations. No changes today to the current treatment plan as the patient is stable, monitor for acute changes. Bronchitis - acute case of bronchitis identified. Pt has been given antibiotics , breathing treatments as appropriate, and pt has been instructed to call if symptoms are not improved, or if symptoms acutely worsen. . Trigeminal Neuralgia - due to shingles - rx for prednisone taper and valcyvlovir 1 gram bid. COPD - rx for albuterol and proair. . COPD - chronic problem for this patient. We have reviewed chronic treatment strategy, symptom control, and plans for acute exacerbations. No changes today to the current treatment plan as the patient is stable, monitor for acute changes. Will start on symbicort. Sleep apnea with over 53 events per hour per Dr. Peraza's report. He attempted to get the pt to agree with starting a trial of CPAP, but she flatly refused. She states that she will NOT use CPAP, but will consider a trial of humidified oxygen as Dr. Peraza felt that oxygen, although won't treat her sleep apnea, 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 PT AGREED TO SLEEP STUDY AND PFT'S, WILL SEND TO SEE DR. LION FOR LEFT HAND/ARM PAIN - SUSPECT CARPAL TUNNEL ENTRAPMENT WILL GIVE RX FOR MEDICATION TO HELP WITH SLEEP - TEMAZEPAM FOR SLEEP. . Insomnia and possible sleep apnea - Pt has history of asthma - I have recommended that she have several tests perfored, the pt was hesitant at first, but: PT AGREED TO SLEEP STUDY AND PFT'S. WILL GIVE RX FOR MEDICATION TO HELP WITH SLEEP - TEMAZEPAM FOR SLEEP. Left arm and hand pain - may be ascending carpal tunnel related pain - therefore : WILL SEND TO SEE DR. LION FOR LEFT HAND/ARM PAIN - SUSPECT CARPAL TUNNEL ENTRAPMENT. . Hypertension - well controlled - continue with current medications, continue with no added salt diet. Pt has been encouraged to exercise daily. The pt has been advised to call the office if there are any acute concerns about change in blood pressure readings at home. Asthma - chronic problem for this patient. We have reviewed chronic treatment strategy, symptom control, and plans for acute exacerbations. No changes today to the current treatment plan as the patient is stable, monitor for acute changes. Restart tudorza Insomnia - Pt has been advised to increase the light in the house during the day , and start dimming the lights during the evening hours. Pt has been advised to cut out caffeine after 5pm. Daytime napping worsens night time insomnia. Refill temazepam to use as needed when traveling . Hypertension - well controlled - continue with current medications, continue with no added salt diet. Pt has been encouraged to exercise daily. The pt has been advised to call the office if there are any acute concerns about change in blood pressure readings at home. Sciatica- exercises discussed with the patient, pt to continue with antiinflammatories. Pt is to call if the symptoms do not improve or if they worsen. . Medicare Exam - today we discussed the patients past history, immunizations, preventative exams/evaluations - colonoscopy, fecal occult blood testing, routine labs for renal function, glucose, cholesterol, osteoporosis evaluations, cardiovascular testing and cancer screenings. We have also discussed mental health and the signs/symptoms of depression. The patient was advised of home safety evaluations and the need to make sure that as the aging process continues, we need to be aware of different ways to make the home a safer place to reside. The patient has also been counseled that exercise is necessary - and of utmost importance as we age to help decrease fall risk and to maintain independece in the home. Today we discussed the need for the patient to create paperwork for Advanced directives as well as for the patient to provide this office with a copy of her DOPA paperwork for health care surrogate. kenalog injection sputum culture if cough persists . Allergies - chronic - recommended pt to use allergy medication as prescribed. Pt has been counseled as to the appropriate use of the medication. Pt to call if allergy symptoms are not controlled with the medication. If using nasal spray, instructions as follows: Nasal spray- use twice daily, one spray per nostril twice daily, after 30 minutes, rinse out nose with saline spray.. Use opposite hand per nostril to spray in the nasal steroid allergy spray. Cough-sputum culture if symptoms persist . Low back pain- the patient was instructed in appropriate posture. The pt is to use prn antiinflammatories to manage acute pain. The patient is to call the office if the pain is worsening or does not improve. Sciatica- exercises discussed with the patient, pt to continue with antiinflammatories. Pt is to call if the symptoms do not improve or if they worsen. Joint Injection - Pt was given post - injection instructions. The pt has been advised to use anti-inflammatories post injection today, ice to the injected site, call if redness, warmth, or increased pain occurs at the site of injection. Start Align or Culturelle Probiotic Daily, Sample for Align provided . Hypertension - well controlled - continue with current medications, continue with no added salt diet. Pt has been encouraged to exercise daily. The pt has been advised to call the office if there are any acute concerns about change in blood pressure readings at home. Hyperlipidemia - Pt to have labs drawn in the AM after fasting for 8-12 hours. pt has been counseled about appropriate diet, exercise, and need for low fat food choices. I have discussed the need for the patient to take medications as prescribed. If the patient has negative side effects from the medication, they are to CALL the office and not abruptly discontinue the medication without discussion with a practitioner in the office. We will check labs in 3-6 months for follow up on the patient's chronic medical problem and to assure normal liver response to medications. Patient provided with mammogram order. Start Align or Culturelle Probiotic Daily, Sample for Align provided . Hypertension - well controlled - continue with current medications, continue with no added salt diet. Pt has been encouraged to exercise daily. The pt has been advised to call the office if there are any acute concerns about change in blood pressure readings at home. Hyperlipidemia - Pt to have labs drawn in the AM after fasting for 8-12 hours. pt has been counseled about appropriate diet, exercise, and need for low fat food choices. I have discussed the need for the patient to take medications as prescribed. If the patient has negative side effects from the medication, they are to CALL the office and not abruptly discontinue the medication without discussion with a practitioner in the office. We will check labs in 3-6 months for follow up on the patient's chronic medical problem and to assure normal liver response to medications. Patient provided with mammogram order. Start Align or Culturelle Probiotic Daily, Sample for Align provided . Hypertension - well controlled - continue with current medications, continue with no added salt diet. Pt has been encouraged to exercise daily. The pt has been advised to call the office if there are any acute concerns about change in blood pressure readings at home. Hyperlipidemia - Pt to have labs drawn in the AM after fasting for 8-12 hours. pt has been counseled about appropriate diet, exercise, and need for low fat food choices. I have discussed the need for the patient to take medications as prescribed. If the patient has negative side effects from the medication, they are to CALL the office and not abruptly discontinue the medication without discussion with a practitioner in the office. We will check labs in 3-6 months for follow up on the patient's chronic medical problem and to assure normal liver response to medications. Patient provided with mammogram order. . Elevated PTH - parathyroid nuclear medicine uptake at [facility] in [place] - 06/26, 12 , 13 are open Osteopenia - discussed the pt's dx and the fact that insurance will not pay for prolia due to lack of dx of Osteoporosis. . Well Adult Female - exam completed. Pt will be called with results of her testing. She was advised to continue with yearly annual exams. Call if any abnormal gynecologic issues during the next year, otherwise, RTC yearly or prn. Vaginal dryness-samples of estrace cream . Sinusitis - Pt has acute infection - pain in face, maxillary region, Pt informed to use decongestant, RX given to patient, sinus rinses also recommended. Call if symptoms do not show improvement. . Well Adult Female - exam completed. Pt will be called with results of her testing. She was advised to continue with yearly annual exams. Call if any abnormal gynecologic issues during the next year, otherwise, RTC yearly or prn. Vaginal dryness-samples of estrace cream sample of TUDORZA ONE INHALE TWICE DAILY, RINSE OUT MOUTH AFTER USE.. Asthma - chronic problem for this patient. We have reviewed chronic treatment strategy, symptom control, and plans for acute exacerbations. No changes today to the current treatment plan as the patient is stable, monitor for acute changes . Hypertension - well controlled - continue with current medications, continue with no added salt diet. Pt has been encouraged to exercise daily. The pt has been advised to call the office if there are any acute concerns about change in blood pressure readings at home. Cough - improved from yesterday. . Sinusitis - Pt has acute infection - pain in face, maxillary region, Pt informed to use decongestant, RX given to patient, sinus rinses also recommended. Call if symptoms do not show improvement. Rocephin injection today in the office . Hyperlipidemia - pt has been counseled about appropriate diet, exercise, and need for low fat food choices. I have discussed the need for the patient to take medications as prescribed. If the patient has negative side effects from the medication, they are to CALL the office and not abruptly discontinue the medication without discussion with a practicioner in the office. We will check labs in 3-6 months for follow up on the patient's chronic medical problem and to assure normal liver response to medications. Chronic Asthma- chronic problem for this patient. We have reviewed chronic treatment strategy, symptom control, and plans for acute exacerbations. No changes today to the current treatment plan as the patient is stable, monitor for acute changes. Arthritis- occasionally uncontrolled symptoms- recommend pt to take antiinflammatory as directed for pain control. Use tylenol for break through pain symptoms. Sleep apnea - pt is not interested in CPAP, pt to call if she starts having problems and desires to consider cpap. . Arthritis - plan to refer pt to Dr. Lion for eval and treatment. Chronic Asthma - chronic problem for this patient. We have reviewed chronic treatment strategy, symptom control, and plans for acute exacerbations. No changes today to the current treatment plan as the patient is stable, monitor for acute changes. Hypertension - well controlled - continue with current medications, continue with no added salt diet. Pt has been encouraged to exercise daily. The pt has been advised to call the office if there are any acute concerns about change in blood pressure readings at home. Hyperlipidemia - pt has been counseled about appropriate diet, exercise, and need for low fat food choices. I have discussed the need for the patient to take medications as prescribed. If the patient has negative side effects from the medication, they are to CALL the office and not abruptly discontinue the medication without discussion with a practicioner in the office. We will check labs in 3-6 months for follow up on the patient's chronic medical problem and to assure normal liver response to medications. recommended pt to hold the GEMFIBROZIL x 1 month to see if this may be the cause of her fatigue, myalgia VITAMIN B12 LIQUID AND TAKE DAILY. . Hyperlipidemia - pt has been counseled about appropriate diet, exercise, and need for low fat food choices. I have discussed the need for the patient to take medications as prescribed. If the patient has negative side effects from the medication, they are to CALL the office and not abruptly discontinue the medication without discussion with a practicioner in the office. We will check labs in 3-6 months for follow up on the patient's chronic medical problem and to assure normal liver response to medications. Pt to hold gemfibrozil x 1 month, also referral to cardiology. OA - chronic - pt to start on glucosamine, monitor symptoms and take tylenol prn for pain. Malais and fatigue - check labs. SWITCH TO MIKHAIL . Sinusitis - Pt has acute infection - pain in face, maxillary region, Pt informed to use decongestant, RX given to patient, sinus rinses also recommended. Call if symptoms do not show improvement. Allergies - chronic - recommended pt to use allergy medication as prescribed. Pt has been counseled as to the appropriate use of the medication. Pt to call if allergy symptoms are not controlled with the medication. If using nasal spray, instructions as follows: Nasal spray- use twice daily, one spray per nostril twice daily, after 30 minutes, rinse out nose with saline spray.. Use opposite hand per nostril to spray in the nasal steroid allergy spray. . Cerumen Impaction - The impacted cerumen was removed with the use of water pick. The patient tolerated the procedure without incident and had improvement in hearing Skin tag- Removed. 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 Triple antibiotic ointment applied to each. [place] to upper back- Apply bactroban BID for 1 week. If continues to drain will refer to general surgery for removal. . Hypertension - well controlled - continue with current medications, continue with no added salt diet. Pt has been encouraged to exercise daily. The pt has been advised to call the office if there are any acute concerns about change in blood pressure readings at home. Asthma - chronic - continue with current treatment. Rash - Ketoconazole shampoo. . Pt went to ED from office, stating she does not think she will be able to get to her ENT in [place]. . Sinusitis - Pt has acute infection - pain in face, maxillary region, Pt informed to use decongestant, RX given to patient, sinus rinses also recommended. Call if symptoms do not show improvement. Rocephin and kenalog injections today in the office Tinea-nystatin powder as directed-call if rash does not resolve or if any worse . Medicare Exam - today we discussed the patients past history, immunizations, preventative exams/evaluations - colonoscopy, fecal occult blood testing, routine labs for renal function, glucose, cholesterol, osteoporosis evaluations, cardiovascular testing and cancer screenings. We have also discussed mental health and the signs/symptoms of depression. The patient was advised of home safety evaluations and the need to make sure that as the aging process continues, we need to be aware of different ways to make the home a safer place to reside. The patient has also been counseled that exercise is necessary - and of utmost importance as we age to help decrease fall risk and to maintain independence in the home. Today we discussed the need for the patient to create paperwork for Advanced directives as well as for the patient to provide this office with a copy of her [employer] paperwork for health care surrogate. . Sinusitis - Pt has acute infection - pain in face, maxillary region, Pt informed to use decongestant, RX given to patient, sinus rinses also recommended. Call if symptoms do not show improvement. Bronchitis - acute case of bronchitis identified. Pt has been given antibiotics, breathing treatments as appropriate, and pt has been instructed to call if symptoms are not improved, or if symptoms acutely worsen.
--- OUTSIDE RECORDS SUMMARY | 2018-11-30 19:15 | XMS REPORT | CCD ---
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) and also during college she was exposed to smoke during her work in college 2013 Marital status Unknown Since 200406/26/2011 Number of children Unknown 3 2 daughters, 1 son 06/26/[address]: 549118943 Never drinks alcohol 06/26/2011 Has the patient [...] PENICILLINS Unknown 06/26/2011 No Inactive Date Active [id number] REDUCTASE INHIBITORS Unknown 06/26/2011 No Inactive Date Active SULFA (SULFONAMIDES) Unknown 01/02/2017 No Inactive Date Active Past Medical History Illness Codes Condition Status Onset Date Resolved Date Chronic obstructive pulmonary disease with (acute) exacerbation ICD-9: 491.21 ICD-10: J44.1 Active 11/07/2018 Unknown Postherpetic trigeminal neuralgia ICD-9: 053.12 ICD-10: B02.22 Active 11/07/2018 Unknown Chronic frontal sinusitis ICD-9: [...] 06/11/2015 Unknown Pelvic and perineal pain ICD-9: [id number] ICD-10: R10.2 Active 06/11/2015 Unknown Well woman [...] Problems Condition Codes Effective Dates Condition Status Chronic obstructive pulmonary disease with (acute) exacerbation ICD-9: 491.21 ICD-10: J44.1 11/07/2018 Active Postherpetic trigeminal neuralgia ICD-9: 053.12 ICD-10: B02.22 11/07/2018 Active Chronic frontal sinusitis ICD-9: 478.19 [...] 06/11/2015 Active Pelvic and perineal pain ICD-9: [id number] ICD-10: R10.2 06/11/2015 Active Well woman exam [...] Fill Instructions amlodipine 5 mg tablet RxNorm: 419679 1 Tablet(s) PO daily 06/06/2019 Active ProAir HFA 90 mcg/actuation aerosol inhaler RxNorm: 4408890 1-2 INH QID as needed 11/07/2018 03/06/2019 Active valacyclovir 1 gram tablet RxNorm: 786969 1 Tablet(s) PO BID 11/20/2018 Active prednisone 10 mg tablet RxNorm: 265771 1 Tablet(s) PO UD 2tabs bid x3days, then 2tabs AM and 1tabPM x3days, then 1tab BID x 3days then 1tab AM x 3 days then stop 11/07/2018 No Stop Date Active albuterol sulfate 1.25 mg/3 mL solution for nebulization RxNorm: 254392 3 Milliliter(s) INH Q4 PRN as needed dyspnea from COPD 201811/01/2019 Active gemfibrozil 600 mg tablet RxNorm: 844462 1 TABLET(S) PO TAKE ONE TABLET BY MOUTH TWICE DAILY 10/15/2018 07/11/2019 Active Diflucan 150 mg tablet RxNorm: 554624 1 Tablet(s) PO daily 09/13/2018 Inactive amlodipine 2.5 mg tablet RxNorm: 169980 1 Tablet(s) PO daily 11/08/2018 Inactive albuterol sulfate 1.25 mg/3 mL solution for nebulization RxNorm: 216367 3 Milliliter(s) INH Q4 PRN as needed dyspnea 07/10/2018 11/06/2018 Inactive Diflucan 150 mg tablet RxNorm: 465087 1 Tablet(s) PO daily x 3 days then may repeat in 10 days if symptoms are not resolved in throat 01/201806/30/2018 Inactive Keflex 500 mg capsule RxNorm: 333205 1 Capsule(s) PO TID 201706/21/2018 Inactive Keflex 500 mg capsule RxNorm: 373208 1 Capsule(s) PO TID 201706/14/2018 Inactive paroxetine 20 mg tablet RxNorm: 3776511 TAKE 1/2 TABLET BY MOUTH EVERY DAY 05/09/2018 02/02/2019 Active prednisone 20 mg tablet RxNorm: 429270 2 Tablet(s) PO daily 03/22/2018 Inactive Celebrex 200 mg capsule RxNorm: 281368 TAKE 1 CAPSULE BY MOUTH TWO TIMES DAILY 03/08/2018 09/03/2018 Inactive - First Attempt Ref: [id number] Singulair 10 mg tablet RxNorm: 225747 Tablet(s) TAKE 1 TABLET BY MOUTH DAILY 02/27/2018 02/21/2019 Active Kenalog 40 mg/mL suspension for injection RxNorm: 0964057 1 Milliliter(s) Inj 02/02/2018 02/02/2018 Inactive Singulair 10 mg tablet RxNorm: 119259 TAKE 1 TABLET BY MOUTH DAILY 01/05/2018 02/26/2018 Inactive - First Attempt Ref: [id number] pantoprazole 40 mg tablet,delayed release RxNorm: 240421 Tablet(s) TAKE 1 TABLET DAILY 12/19/2017 01/07/2018 Inactive gemfibrozil 600 mg tablet RxNorm: 859134 1 TABLET(S) PO TAKE ONE TABLET BY MOUTH TWICE DAILY 12/05/2017 08/31/2018 Inactive albuterol sulfate 1.25 mg/3 mL solution for nebulization RxNorm: 701012 3 Milliliter(s) INH Q4 PRN as needed dyspnea 11/22/2017 05/20/2018 Inactive albuterol sulfate 1.25 mg/3 mL solution for nebulization RxNorm: 763950 3 Milliliter(s) INH Q4 PRN as needed dyspnea 11/02/2017 11/21/2017 Inactive methylprednisolone 4 mg tablets in a dose pack RxNorm: 547564 1 Tablet(s) PO UD 09/01/2017 No Stop Date Active albuterol sulfate 1.25 mg/3 mL solution for nebulization RxNorm: 333142 3 Milliliter(s) INH Q4 PRN as needed dyspnea 09/01/2017 11/01/2017 Inactive Keflex 500 mg capsule RxNorm: 373489 1 Capsule(s) PO TID 201609/10/2017 Inactive methylprednisolone 4 mg tablets in a dose pack RxNorm: 139799 1 Tablet(s) PO UD To start tomorrow 08/21/2017 08/31/2017 Inactive Kenalog 40 mg/mL suspension for injection RxNorm: 2476632 Milliliter(s) Inj 08/21/2017 08/21/2017 Inactive Levaquin 500 mg tablet RxNorm: 969093 1 Tablet(s) PO daily 03/201708/27/2017 Inactive Ativan 0.5 mg tablet RxNorm: 239086 1 Tablet(s) PO 1 hour before MRI, may repeat dose x1 07/21/2017 07/20/2017 Inactive Ativan 0.5 mg tablet RxNorm: 262047 1 Tablet(s) PO 1 hour before MRI, february repeat dose x1 07/21/2017 07/21/2017 Inactive ProAir HFA 90 mcg/actuation aerosol inhaler RxNorm: 7443921 1-2 INH QID as needed 07/18/2017 11/14/2017 Inactive Kenalog 40 mg/mL suspension for injection RxNorm: 2929324 Milliliter(s) Inj 06/30/2017 06/30/2017 Inactive albuterol sulfate 1.25 mg/3 mL solution for nebulization RxNorm: 017260 3 Milliliter(s) INH Q4 PRN as needed dyspnea 06/07/2017 08/31/2017 Inactive Keflex 500 mg capsule RxNorm: 318709 1 Capsule(s) PO TID 201606/01/2017 Inactive Keflex 500 mg capsule RxNorm: 146673 1 Capsule(s) PO TID 201606/08/2017 Inactive methylprednisolone 4 mg tablets in a dose pack RxNorm: 346155 1 Tablet(s) PO UD To start tomorrow 05/10/2017 08/20/2017 Inactive Kenalog 40 mg/mL suspension for injection RxNorm: 0490741 Milliliter(s) Inj 05/09/2017 05/09/2017 Inactive Voltaren 1 % topical gel RxNorm: 114744 1 Application TOP TID as needed 05/08/2017 No Stop Date Active paroxetine 20 mg tablet RxNorm: 8909441 TAKE 1/2 TABLET BY MOUTH EVERY DAY 05/03/2017 04/27/2018 Inactive gemfibrozil 600 mg tablet RxNorm: 284191 1 TABLET(S) PO TAKE ONE TABLET BY MOUTH TWICE DAILY 02/21/2017 11/17/2017 Inactive Celebrex 200 mg capsule RxNorm: 880016 1 Capsule(s) PO BID 02/02/2018 Inactive Celebrex 200 mg capsule RxNorm: 573614 1 Capsule(s) PO BID TAKE 1 CAPSULE TWICE DAILY 02/02/2017 02/07/2017 Inactive ketoconazole 2 % shampoo RxNorm: 604727 1 Application TOP daily x 1 week then weekly as needed for rash 01/31/2017 No Stop Date Active DC topical cream ProAir RespiClick 90 mcg/actuation breath activated RxNorm: 1743678 1 -2 INH Q4H as needed ASTHMA 01/31/2017 07/17/2017 Inactive Kenalog 40 mg/mL suspension for injection RxNorm: 9729231 1.5 Milliliter(s) Inj 01/30/2017 01/30/2017 Inactive Levaquin 500 mg tablet RxNorm: 381617 1 Tablet(s) PO daily 02/05/2017 Inactive Celebrex 200 mg capsule RxNorm: 563724 1 Capsule(s) PO BID TAKE 1 CAPSULE TWICE DAILY 01/30/2017 02/01/2017 Inactive methylprednisolone 4 mg tablets in a dose pack RxNorm: 261639 1 Tablet(s) PO UD 01/30/2017 05/08/2017 Inactive ketoconazole 2 % shampoo RxNorm: 261162 1 Application TOP daily x 1 week then weekly as needed for rash 12/30/201601/30 Inactive DC topical cream aspirin 81 mg tablet,delayed release RxNorm: 374582 1 Tablet(s) PO daily 12/29/2016 No Stop Date Active ketoconazole 2 % topical cream RxNorm: 533489 1 Application TOP daily x 1 week then weekly as needed for rash 12/29/2016 12/29/2016 Inactive Singulair 10 mg tablet RxNorm: 258407 Tablet(s) TAKE 1 TABLET DAILY 11/30/2016 11/23/2017 Inactive pantoprazole 40 mg tablet,delayed release RxNorm: 679817 Tablet(s) TAKE 1 TABLET DAILY 11/30/2016 11/23/2017 Inactive paroxetine 20 mg tablet RxNorm: 9927103 Tablet(s) TAKE ONE-HALF TABLET BY MOUTH EVERY DAY 11/25/2016 05/02/2017 Inactive paroxetine 20 mg tablet RxNorm: 5413488 Tablet(s) TAKE ONE-HALF TABLET BY MOUTH EVERY DAY 11/17/2016 11/24/2016 Inactive Levaquin 500 mg tablet RxNorm: 662641 1 Tablet(s) PO daily 11/24/2016 Inactive pantoprazole 40 mg tablet,delayed release RxNorm: 247898 TAKE 1 TABLET DAILY 08/22/2016 11/29/2016 Inactive gemfibrozil 600 mg tablet RxNorm: 677247 1 TABLET(S) PO TAKE ONE TABLET BY MOUTH TWICE DAILY 05/06/2016 01/30/2017 Inactive temazepam 7.5 mg capsule RxNorm: 230079 1 Capsule(s) PO HS PRN 03/24/2016 No Stop Date Active Singulair 10 mg tablet RxNorm: 999668 Tablet(s) TAKE 1 TABLET DAILY 03/07/2016 11/29/2016 Inactive Singulair 10 mg tablet RxNorm: 365014 Tablet(s) TAKE 1 TABLET DAILY 03/07/2016 03/06/2016 Inactive pantoprazole 40 mg tablet,delayed release RxNorm: 603609 TAKE 1 TABLET DAILY 02/15/2016 08/12/2016 Inactive Celebrex 200 mg capsule RxNorm: 937565 1 Capsule(s) PO BID TAKE 1 CAPSULE TWICE DAILY 01/25/2016 01/17/2017 Inactive gemfibrozil 600 mg tablet RxNorm: 494586 1 TABLET(S) PO TAKE ONE TABLET BY MOUTH TWICE DAILY 11/10/2015 05/05/2016 Inactive Patient requests 90 days supply Levaquin 500 mg tablet RxNorm: 440400 1 Tablet(s) PO daily 10/08/2015 Inactive albuterol sulfate 1.25 mg/3 mL solution for nebulization RxNorm: 883954 3 Milliliter(s) INH PRN as needed dyspnea 09/25/2015 06/06/2017 Inactive Levaquin 500 mg tablet RxNorm: 395606 1 Tablet(s) PO daily 06/201509/02/2015 Inactive albuterol sulfate HFA 90 mcg/actuation aerosol inhaler RxNorm: 5686032 1-2 Puff(s ) INH Q4 PRN as needed 08/24/20152016 Inactive sample and rX provided albuterol sulfate HFA 90 mcg/actuation aerosol inhaler RxNorm: 7303157 1-2 Puff(s ) INH Q4 PRN as needed 08/24/20152014 Inactive sample and rX provided paroxetine 20 mg tablet RxNorm: 2057228 Tablet(s) TAKE ONE-HALF TABLET BY MOUTH EVERY DAY 08/21/2015 03/17/2016 Inactive pantoprazole 40 mg tablet,delayed release RxNorm: 124884 1 Tablet(s) PO daily 07/27/2015 07/26/2015 Inactive pantoprazole 40 mg tablet,delayed release RxNorm: 277570 1 Tablet(s) PO daily 07/27/2015 01/22/2016 Inactive gemfibrozil 600 mg tablet RxNorm: 410973 1 TABLET(S) PO TAKE ONE TABLET BY MOUTH TWICE DAILY 07/10/2015 11/09/2015 Inactive nystatin (bulk) 100 million unit powder RxNorm: 1 APPLICATION TOP TID 06/25/2015 07/15/2015 Inactive Kenalog 40 mg/mL suspension for injection RxNorm: 5485903 Milliliter(s) Inj 05/29/2015 05/29/2015 Inactive Keflex 500 mg capsule RxNorm: 038970 1 Capsule(s) PO TID 201406/07/2015 Inactive nystatin (bulk) 100 million unit powder RxNorm: 1 Application TOP TID 05/29/2015 06/18/2015 Inactive ceftriaxone 500 mg solution for injection RxNorm: 5362782 Inj 05/29/2015 05/29/2015 Inactive Fioricet 50 mg-325 mg-40 mg tablet RxNorm: 320418 1 Tablet(s) PO Q6 PRN as needed 04/20/2015 07/18/2015 Inactive Bactroban 2 % topical ointment RxNorm: 050681 1 TOP BID 2014 No Stop Date Active Align 4 mg capsule RxNorm: 724078 1 Capsule(s) PO daily 03/1912/28/2016 Inactive Singulair 10 mg tablet RxNorm: 244344 TAKE 1 TABLET DAILY 03/0202/24/2016 Inactive Bactroban 2 % topical ointment RxNorm: 619396 1 APPLICATION TOP BID 12/02/2014 12/11/2014 Inactive right nare ceftriaxone 500 mg solution for injection RxNorm: 550892 Inj 10/15/2014 Inactive Keflex 500 mg capsule RxNorm: 769785 1 Capsule(s) PO BID 201310/28/2014 Inactive Kenalog 40 mg/mL suspension for injection RxNorm: 9315789 Milliliter(s) Inj 10/15/2014 10/15/2014 Inactive prednisone 20 mg tablet RxNorm: 474450 1 Tablet(s) PO daily 10/24/2014 Inactive Tudorza Pressair 400 mcg/actuation breath activated RxNorm: 3089015 1 Puff(s) INH BID 10/15/2014 11/13/2014 Inactive gemfibrozil 600 mg tablet RxNorm: 583646 1 Tablet(s) PO TAKE ONE TABLET BY MOUTH TWICE DAILY 09/29/2014 06/25/2015 Inactive Celebrex 200 mg capsule RxNorm: 057375 1 Capsule(s) PO BID TAKE 1 CAPSULE TWICE DAILY 07/31/2014 07/25/2015 Inactive paroxetine 20 mg tablet RxNorm: 616805 TAKE ONE-HALF TABLET BY MOUTH EVERY DAY 07/15/2014 02/09/2015 Inactive Bactroban 2 % topical ointment RxNorm: 505187 1 Application TOP BID 04/10/2014 04/14/2014 Inactive right nare Singulair 10 mg tablet RxNorm: 076265 1 Tablet(s) PO daily TAKE 1 TABLET DAILY 02/27/2014 02/21/2015 Inactive Celebrex 200 mg capsule RxNorm: 813826 1 Capsule(s) PO BID TAKE 1 CAPSULE TWICE DAILY 02/27/2014 07/30/2014 Inactive ciprofloxacin 500 mg tablet RxNorm: 668200 1 Tablet(s) PO BID 02/17/2014 02/26/2014 Inactive prednisone 20 mg tablet RxNorm: 447426 1 Tablet(s) PO daily 02/201402/21/2014 Inactive Fioricet 50 mg-325 mg-40 mg tablet RxNorm: 698306 1 Tablet(s) PO Q6 PRN 02/17/2014 05/16/2014 Inactive Kenalog 40 mg/mL suspension for injection RxNorm: 2212911 Milliliter(s) Inj 02/17/2014 02/17/2014 Inactive Bactrim 400 mg-80 mg tablet RxNorm: 139386 1 Tablet(s) PO BID 12/25/2013 12/24/2013 Inactive Omnicef 300 mg capsule RxNorm: 712721 1 Capsule(s) PO BID 12/2501/03/2014 Inactive please dc the bactrim order. pt states she is allergic. Bactrim 400 mg-80 mg tablet RxNorm: 044907 1 Tablet(s) PO BID 12/25/2013 12/25/2013 Inactive gemfibrozil 600 mg tablet RxNorm: 872191 Tablet(s) PO TAKE ONE TABLET BY MOUTH TWICE DAILY 12/12/2013 09/28/2014 Inactive Rocephin 500 mg solution for injection RxNorm: 993080 Inj 12/0512/05/2013 Inactive Bactroban 2 % topical ointment RxNorm: 430267 1 Application TOP BID right nare 12/05/2013 12/11/2013 Inactive Keflex 500 mg capsule RxNorm: 140424 1 Capsule(s) PO BID 201312/11/2013 Inactive paroxetine 20 mg tablet RxNorm: 436694 Tablet(s) PO TAKE ONE-HALF TABLET BY MOUTH EVERY DAY 07/15/2013 07/14/2014 Inactive Influenza Virus Vaccine 0.5 mL RxNorm: IM 07/09/2013 07/09/2013 Inactive Singulair 10 mg tablet RxNorm: 451311 Tablet(s) PO TAKE 1 TABLET DAILY 05/30/2013 02/26/2014 Inactive Celebrex 200 mg capsule RxNorm: 292647 Capsule(s) PO TAKE 1 CAPSULE TWICE DAILY 04/13/2013 02/26/2014 Inactive Singulair 10 mg tablet RxNorm: 798603 1 Tablet(s) PO daily 05/29/2013 Inactive gemfibrozil 600 mg tablet RxNorm: 763609 Tablet(s) PO TAKE ONE TABLET BY MOUTH TWICE DAILY 11/28/2012 12/11/2013 Inactive Rocephin 500 mg Solution for Injection RxNorm: 748193 1 Milliliter(s) Inj 10/23/2012 10/23/2012 Inactive paroxetine 20 mg tablet RxNorm: 114456 1/2 Tablet(s) PO daily 07/13/2012 07/14/2013 Inactive TAKE ONE-HALF TABLET BY MOUTH EVERY DAY Fioricet 50 mg-325 mg-40 mg tablet RxNorm: 144182 1 Tablet(s) PO Q6 PRN 04/17/2012 07/15/2012 Inactive gemfibrozil 600 mg tablet RxNorm: 218233 Tablet(s) PO 201111/27/2012 Inactive TAKE ONE TABLET BY MOUTH TWICE DAILY gemfibrozil 600 mg Tab RxNorm: 098184 1 Tablet(s) PO BID 201111/16/2011 Inactive MIDRIN 325 mg-65 mg-100 mg Cap RxNorm: 202914 1 Capsule(s) PO Q4-6H 09/15/2011 04/17/2012 Inactive max 8 tabs/24 hours Influenza Virus Vaccine 0.5 mL RxNorm: IM 07/05/2011 07/05/2011 Inactive Pulmicort Flexhaler 180 mcg/Inhalation Breath Activated RxNorm: 4178798 1 Puff(s) INH daily 06/27/2011 07/26/2011 Inactive Singulair 10 mg tablet RxNorm: 131862 1 Tablet(s) PO daily 09/201107/26/2011 Inactive Celebrex 200 mg capsule RxNorm: 435932 1 Capsule(s) PO BID 09/201104/12/2013 Inactive paroxetine 20 mg tablet RxNorm: 477723 1/2 Tablet(s) PO daily 06/27/2011 07/13/2012 Inactive gemfibrozil 600 mg Tab RxNorm: 439890 1 Tablet(s) PO BID 201011/15/2011 Inactive requests 90 day supply-refilled but needs labs amaury. vitamin B6-vitamin E-magnesium Oral RxNorm: Oral No Start Date Active Advil Oral RxNorm: Oral No Start Date Active ranitidine 150 mg tablet RxNorm: 399251 1 Tablet(s) PO daily No Start Date Active Claritin 10 mg tablet RxNorm: 448860 1 Tablet(s) PO daily No Start Date Active Flexeril 5 mg Tab RxNorm: 672646 1/2-2 Tablet(s) PO PRN 1/2-1 po q 8 hours prn back pain or muscle spasms No Start Date Active Dulera 200 mcg-5 mcg/actuation HFA aerosol inhaler RxNorm: 4666191 1 INH BID No Start Date Active folic acid Oral RxNorm : Oral No Start Date Active vitamin [id number] B1 Oral RxNorm: Oral No Start Date Active chlordiazepoxide-clidinium 5 mg-2.5 mg Cap RxNorm: 916749 1 Capsule(s) PO PRN For IBS No Start Date Active Singulair 10 mg Tab RxNorm: 442813 1 Tablet(s) PO daily No Start Date 06/26/2011 Inactive Omnicef 300 mg capsule RxNorm: 537635 1 Capsule(s) PO BID No Start Date 12/24/2013 Inactive albuterol sulfate HFA 90 mcg/Actuation Aerosol Inhaler RxNorm: 5287283 1-2 Puff(s ) INH Q4 PRN No Start Date 08/23/2015 Inactive sample and rX provided aspirin 81 mg Tab, Delayed Release RxNorm: 657846 1 Tablet(s) PO BID No Start Date 12/28/2016 Inactive Tudorza Pressair 400 mcg/actuation Breath Activated RxNorm: 4148553 1 Puff(s) INH BID No Start Date 10/14/2014 Inactive niacin ER 500 mg Tab RxNorm: 965026 1 Tablet(s) PO QHS No Start Date 02/27/2013 Inactive Celebrex 200 mg Cap RxNorm: 898643 1 Capsule(s) PO BID No Start Date 06/26/2011 Inactive loratadine 10 mg Tab RxNorm: 9599534 1 Tablet(s) PO daily No Start Date 02/27/2013 Inactive Nasonex 50 mcg/Actuation Ottertail RxNorm: 372952 2 Ottertail NASAL BID No Start Date 06/26/2011 Inactive Zithromax Z-Marty 250 mg Tab RxNorm: 776686 Tablet(s) PO No Start Date 07/11/2011 Inactive 2 tabs today, then tabs 2-5 daily Zithromax Z-Marty 250 mg tablet RxNorm: 390103 Tablet(s) PO UD No Start Date 04/21/2013 Inactive Tessalon Perles 100 mg Cap RxNorm: 124097 1 Capsule(s) PO PRN No Start Date 07/11/2011 Inactive albuterol sulfate HFA 90 mcg/Actuation Aerosol Inhaler RxNorm: 983145 Inhalation No Start Date 06/27/2011 Inactive Nasacort AQ 55 mcg Nasal [place] Aerosol RxNorm: 1114120 1 [place] NASAL PRN No Start Date 12/28/2016 Inactive gemfibrozil 600 mg Tab RxNorm: 627987 1 Tablet(s) PO BID No Start Date 06/26/2011 Inactive Pulmicort Flexhaler 180 mcg/Inhalation Breath Activated RxNorm: 8231518 1 INH daily No Start Date 06/26/2011 Inactive paroxetine 20 mg Tab RxNorm: 111321 1/2 Tablet(s) PO daily No Start Date 06/26/2011 Inactive MIDRIN 325 mg-65 mg-100 mg Cap RxNorm: 359815 1 Capsule(s) PO Q4-6H No Start Date 09/14/2011 Inactive max 8 tabs/24 hours beta carotene Oral RxNorm: Oral No Start Date 12/28/2016 Inactive Medication Administered Medication Codes Instructions Start Date Status Kenalog 40 mg/mL suspension for injection RxNorm: 5135873 1Milliliter 02/02/2018 No longer Active Kenalog 40 mg/mL suspension for injection RxNorm: 1256166 Milliliter 08/21/2017 No longer Active Kenalog 40 mg/mL suspension for injection RxNorm: 6638590 Milliliter 06/30/2017 No longer Active Kenalog 40 mg/mL suspension for injection RxNorm: 9671761 Milliliter 05/09/2017 No longer Active Kenalog 40 mg/mL suspension for injection RxNorm: 2541991 1.5Milliliter 01/30/2017 No longer Active ceftriaxone 500 mg solution for injection RxNorm: 0221540 05/29/2015 No longer Active Kenalog 40 mg/mL suspension for injection RxNorm: 9644402 Milliliter 05/29/2015 No longer Active Kenalog 40 mg/mL suspension for injection RxNorm: 9718014 Milliliter 10/15/2014 No longer Active ceftriaxone 500 mg solution for injection RxNorm: 125330 10/15/2014 No longer Active Kenalog 40 mg/mL suspension for injection RxNorm: 7292146 Milliliter 02/17/2014 No longer Active Rocephin 500 mg solution for injection RxNorm: 690464 12/05/2013 No longer Active Influenza Virus Vaccine 0.5 mL RxNorm: 07/09/2013 No longer Active Rocephin 500 mg Solution for Injection RxNorm: 080498 1Milliliter 10/23/2012 No longer Active Influenza Virus [...] Postherpetic trigeminal neuralgia ICD-10: B02.22 ICD-9: 053.12 11/07/2018 Chronic obstructive pulmonary disease with (acute) exacerbation [...] Pelvic and perineal pain ICD-10: R10.2 ICD-9: [id number] 06/12/2015 Encounter for screening for malignant neoplasm [...] Reason For Visit Effective Dates Notes hypertension 11/07/2018 hypertension 09/04/2018 improving abnormal test [...] NO Growth Day 2 06/19/2018 Parathyroid Hormone Ajb473 PTH 81.40 pg/ml 05/10/2018 Comp Metabolic Xta823 NA 142 mEq/L 05/10/2018 Comp Metabolic Ntb550 K 4.1 mEq/L 05/10/2018 Comp Metabolic Ypn620 CL 105 mEq/L 05/10/2018 Comp Metabolic Yvk806 CO2 27.0 mEq/L 05/10/2018 Comp Metabolic Brx695 ANION GAP 14 05/10/2018 Comp Metabolic Icw321 GLUCOSE 95 mg/dL 05/10/2018 Comp Metabolic Jtz570 Creat 0.9 mg/dL 05/10/2018 Comp Metabolic Whg129 eGFR 65 ml/min/1.73m2 05/10/2018 Comp Metabolic Kmf773 BUN 15 mg/dL 05/10/2018 Comp Metabolic Gba671 B/C Ratio 16.9 Ratio 05/10/2018 Comp Metabolic Hhn074 CALCIUM 9.8 mg/dL 05/10/2018 Comp Metabolic Vad770 ALK PHOS 77 U/L 05/10/2018 Comp Metabolic Zlp376 AST(SGOT) 24 U/L 05/10/2018 Comp Metabolic Vok925 ALT(SGPT) 23 U/L 05/10/2018 Comp Metabolic Zce436 BILI T 0.5 mg/dL 05/10/2018 Comp Metabolic Neg048 ALBUMIN 4.8 g/dL 05/10/2018 Comp Metabolic Adt541 TPRO 7.2 g/dL 05/10/2018 Comp Metabolic Tze641 GLOB 2.5 g/dL 05/10/2018 Comp Metabolic Gxd752 A/G Ratio 1.9 Ratio 05/10/2018 Comp Metabolic Vly550 Osmo 284 mOsmo 05/10/2018 Tsh Ord6 TSH (3rd IS) 5.32 uIU/mL 05/10/2018 Cbc With Differential Ord2 WBC 8.56 K/ul 05/10/2018 Cbc With Differential Ord2 RBC 4.48 M/ul 05/10/2018 Cbc With Differential Ord2 HGB 14.4 g/dl 05/10/2018 Cbc With Differential Ord2 HCT 42.4 % 05/10/2018 Cbc With Differential Ord2 Neut% 37.2 % 05/10/2018 Cbc With Differential Ord2 MCV 94.6 fl 05/10/2018 Cbc With Differential Ord2 Lymph% 41.1 % 05/10/2018 Cbc With Differential Ord2 Hopkins% 9.6 % 05/10/2018 Cbc With Differential Ord2 MCH 32.1 pg 05/10/2018 Cbc With Differential Ord2 MCHC 34.0 pg 05/10/2018 Cbc With Differential Ord2 Eos% 11.7 % 05/10/2018 Cbc With Differential Ord2 PLT 396 K/ul 05/10/2018 Cbc With Differential Ord2 Baso% 0.4 % 05/10/2018 Cbc With Differential Ord2 RDW 12.9 % 05/10/2018 Cbc With Differential Ord2 Neut ABS# 3.19 K/ul 05/10/2018 Cbc With Differential Ord2 Lymph ABS# 3.52 K/ul 05/10/2018 Cbc With Differential Ord2 Hopkins ABS# 0.8 K/ul 05/10/2018 Cbc With Differential Ord2 Eos ABS# 1.0 K/ul 05/10/2018 Cbc With Differential Ord2 Baso ABS# 0.0 K/ul 05/10/2018 Vitamin D 25 Oh Lyh0220 VITAMIN D, 25 HYDROXY 51.58 ng/mL Tsh Ord6 TSH (3rd IS) 3.12 uIU/mL 01/09/2018 Lipid Ord30 CHOL 159 mg/dL 01/09/2018 Lipid [...] 94.1 fl 01/09/2018 Cbc With Differential Ord2 Hopkins% 9.8 % 01/09/2018 Cbc With Differential Ord2 MCH 31.6 pg 01/09/2018 Cbc With Differential Ord2 MCHC 33.6 pg 01/09/2018 Cbc With Differential Ord2 Eos% 6.4 % 01/09/2018 Cbc With Differential Ord2 Baso% 0.1 % 01/09/2018 Cbc With Differential Ord2 PLT 395 K/ul 01/09/2018 Cbc With Differential Ord2 RDW 12.5 % 01/09/2018 Cbc With Differential Ord2 Neut ABS# 2.86 K/ul 01/09/2018 Cbc With Differential Ord2 Lymph ABS# 3.05 K/ul 01/09/2018 Cbc With Differential Ord2 Hopkins ABS# 0.7 K/ul 01/09/2018 Cbc With Differential Ord2 Eos ABS# 0.5 K/ul 01/09/2018 Cbc With Differential Ord2 Baso ABS# 0.0 K/ul 01/09/2018 Comp Metabolic Yfy062 NA 140 mEq/L 01/09/2018 Comp Metabolic Gjh189 K 4.0 mEq/L 01/09/2018 Comp Metabolic Quo170 CL 105 mEq/L 01/09/2018 Comp Metabolic Bfn581 CO2 28.0 mEq/L 01/09/2018 Comp Metabolic Jeb120 ANION GAP 11 01/09/2018 Comp Metabolic Iqk369 GLUCOSE 98 mg/dL 01/09/2018 Comp Metabolic Joh452 Creat 0.7 mg/dL 01/09/2018 Comp Metabolic Acp135 eGFR 87 ml/min/1.73m2 01/09/2018 Comp Metabolic Eon434 BUN 14 mg/dL 01/09/2018 Comp Metabolic Kxs197 B/C Ratio 20.3 Ratio 01/09/2018 Comp Metabolic Ehs979 CALCIUM 9.8 mg/dL 01/09/2018 Comp Metabolic Dpi663 ALK PHOS 113 U/L 01/09/2018 Comp Metabolic Lsu246 AST(SGOT) 22 U/L 01/09/2018 Comp Metabolic Fuy544 ALT(SGPT) 22 U/L 01/09/2018 Comp Metabolic Zqq340 BILI T 0.5 mg/dL 01/09/2018 Comp Metabolic Nas822 ALBUMIN 4.6 g/dL 01/09/2018 Comp Metabolic Tmj472 TPRO 7.0 g/dL 01/09/2018 Comp Metabolic Nzg814 GLOB 2.4 g/dL 01/09/2018 Comp Metabolic Ntj767 A/G Ratio 2.0 Ratio 01/09/2018 Comp Metabolic Phj666 Osmo 280 mOsmo 01/09/2018 Lipid Ord30 CHOL 163 mg/dL 12/27/2016 Lipid Ord30 HDL 63.0 mg/dl 12/27/2016 Lipid Ord30 TRIG 62 mg/dL 12/27/2016 Lipid Ord30 LDL 88 mg/dL 12/27/2016 Lipid Ord30 C/HDL 2.6 Ratio 12/27/2016 Tsh Ord6 hTSH II 2.47 uIU/mL 12/27/2016 Cbc With Differential Ord2 WBC 7.34 K/ul 12/27/2016 Cbc With Differential Ord2 RBC 4.32 M/ul 12/27/2016 Cbc With Differential Ord2 HGB 13.8 g/dl 12/27/2016 Cbc With Differential Ord2 Neut% 30.6 % 12/27/2016 Cbc With Differential Ord2 HCT 40.3 % 12/27/2016 Cbc With Differential Ord2 MCV 93.3 fl 12/27/2016 Cbc With Differential Ord2 Lymph% 49.0 % 12/27/2016 Cbc With Differential Ord2 Hopkins% 8.6 % 12/27/2016 Cbc With Differential Ord2 MCH 31.9 pg 12/27/2016 Cbc With Differential Ord2 MCHC 34.2 pg 12/27/2016 Cbc With Differential Ord2 Eos% 11.4 % 12/27/2016 Cbc With Differential Ord2 Baso% 0.4 % 12/27/2016 Cbc With Differential Ord2 PLT 369 K/ul 12/27/2016 Cbc With Differential Ord2 RDW 12.4 % 12/27/2016 Cbc With Differential Ord2 Neut ABS# 2.24 K/ul 12/27/2016 Cbc With Differential Ord2 Lymph ABS# 3.60 K/ul 12/27/2016 Cbc With Differential Ord2 Hopkins ABS# 0.6 K/ul 12/27/2016 Cbc With Differential Ord2 Eos ABS# 0.8 K/ul 12/27/2016 Cbc With Differential Ord2 Baso ABS# 0.0 K/ul 12/27/2016 Comp Metabolic Pkl929 NA 140 mEq/L 12/27/2016 Comp Metabolic Exi420 K 4.0 mEq/L 12/27/2016 Comp Metabolic Dlh238 CL 105 mEq/L 12/27/2016 Comp Metabolic Tif582 CO2 28.0 mEq/L 12/27/2016 Comp Metabolic Kdn284 ANION GAP 11 12/27/2016 Comp Metabolic Enz082 GLUCOSE 102 mg/dL 12/27/2016 Comp Metabolic Sui425 Creat 0.7 mg/dL 12/27/2016 Comp Metabolic Xgo914 eGFR 81 ml/min/1.73m2 12/27/2016 Comp Metabolic Gid017 BUN 15 mg/dL 12/27/2016 Comp Metabolic Mvq487 B/C Ratio 20.3 Ratio 12/27/2016 Comp Metabolic Crw514 CALCIUM 10.0 mg/dL 12/27/2016 Comp Metabolic Hou356 ALK PHOS 110 U/L 12/27/2016 Comp Metabolic Dim432 AST(SGOT) 20 U/L 12/27/2016 Comp Metabolic Pjm907 ALT(SGPT) 22 U/L 12/27/2016 Comp Metabolic Yro601 BILI T 0.5 mg/dL 12/27/2016 Comp Metabolic Aly387 ALBUMIN 4.7 g/dL 12/27/2016 Comp Metabolic Hfl991 TPRO 7.2 g/dL 12/27/2016 Comp Metabolic Fii887 GLOB 2.5 g/dL 12/27/2016 Comp Metabolic Goa463 A/G Ratio 1.9 Ratio 12/27/2016 Comp Metabolic Vpo122 Osmo 280 mOsmo 12/27/2016 Cbc With Differential Ord2 WBC 7.53 K/ul 06/13/2016 Cbc With Differential Ord2 RBC 4.51 M/ul 06/13/2016 Cbc With Differential Ord2 HGB 14.3 g/dl 06/13/2016 Cbc With Differential Ord2 HCT 42.2 % 06/13/2016 Cbc With Differential Ord2 Neut% 34.3 % 06/13/2016 Cbc With Differential Ord2 MCV 93.6 fl 06/13/2016 Cbc With Differential Ord2 Lymph% 43.3 % 06/13/2016 Cbc With Differential Ord2 Hopkins% 8.4 % 06/13/2016 Cbc With Differential Ord2 MCH 31.7 pg 06/13/2016 Cbc With Differential Ord2 MCHC 33.9 pg 06/13/2016 Cbc With Differential Ord2 Eos% 13.7 % 06/13/2016 Cbc With Differential Ord2 PLT 361 K/ul 06/13/2016 Cbc With Differential Ord2 Baso% 0.3 % 06/13/2016 Cbc With Differential Ord2 RDW 12.5 % 06/13/2016 Cbc With Differential Ord2 Neut ABS# 2.59 K/ul 06/13/2016 Cbc With Differential Ord2 Lymph ABS# 3.26 K/ul 06/13/2016 Cbc With Differential Ord2 Hopkins ABS# 0.6 K/ul 06/13/2016 Cbc With Differential Ord2 Eos ABS# 1.0 K/ul 06/13/2016 Cbc With Differential Ord2 Baso ABS# 0.0 K/ul 06/13/2016 Cbc With Differential Ord2 WBC 8.02 K/ul 03/25/2016 Cbc With Differential Ord2 RBC 4.35 M/ul 03/25/2016 Cbc With Differential Ord2 HGB 13.9 g/dl 03/25/2016 Cbc With Differential Ord2 HCT 40.9 % 03/25/2016 Cbc With Differential Ord2 Neut% 40.5 % 03/25/2016 Cbc With Differential Ord2 MCV 94.0 fl 03/25/2016 Cbc With Differential Ord2 Lymph% 39.9 % 03/25/2016 Cbc With Differential Ord2 MCH 32.0 pg 03/25/2016 Cbc With Differential Ord2 Hopkins% 9.4 % 03/25/2016 Cbc With Differential Ord2 Eos% 9.7 % 03/25/2016 Cbc With Differential Ord2 MCHC 34.0 pg 03/25/2016 Cbc With Differential Ord2 PLT 440 K/ul 03/25/2016 Cbc With Differential Ord2 Baso% 0.5 % 03/25/2016 Cbc With Differential Ord2 RDW 12.5 % 03/25/2016 Cbc With Differential Ord2 Neut ABS# 3.25 K/ul 03/25/2016 Cbc With Differential Ord2 Lymph ABS# 3.20 K/ul 03/25/2016 Cbc With Differential Ord2 Hopkins ABS# 0.8 K/ul 03/25/2016 Cbc With Differential Ord2 Eos ABS# 0.8 K/ul 03/25/2016 Cbc With Differential Ord2 Baso ABS# 0.0 K/ul 03/25/2016 Tsh Ord6 hTSH II 3.61 uIU/mL 03/25/2016 Comp Metabolic Xym475 NA 141 mEq/L 03/25/2016 Comp Metabolic Rgj610 K 4.0 mEq/L 03/25/2016 Comp Metabolic Xvi285 CL 103 mEq/L 03/25/2016 Comp Metabolic Bjq075 CO2 28.0 mEq/L 03/25/2016 Comp Metabolic Gns435 ANION GAP 14 03/25/2016 Comp Metabolic Xwr960 GLUCOSE 91 mg/dL 03/25/2016 Comp Metabolic Eee926 Creat 0.8 mg/dL 03/25/2016 Comp Metabolic Ftd839 eGFR 70 ml/min/1.73m2 03/25/2016 Comp Metabolic Ata481 BUN 16 mg/dL 03/25/2016 Comp Metabolic Opy594 B/C Ratio 19.0 Ratio 03/25/2016 Comp Metabolic Cpc843 CALCIUM 9.8 mg/dL 03/25/2016 Comp Metabolic Qxo699 ALK PHOS 111 U/L 03/25/2016 Comp Metabolic Kpx158 AST(SGOT) 19 U/L 03/25/2016 Comp Metabolic Zmm831 ALT(SGPT) 19 U/L 03/25/2016 Comp Metabolic Jtq731 BILI T 0.6 mg/dL 03/25/2016 Comp Metabolic Qpi006 ALBUMIN 4.6 g/dL 03/25/2016 Comp Metabolic Nal433 TPRO 7.4 g/dL 03/25/2016 Comp Metabolic Dip602 GLOB 2.8 g/dL 03/25/2016 Comp Metabolic Rfd358 A/G Ratio 1.7 Ratio 03/25/2016 Comp Metabolic Nvo780 Osmo 282 mOsmo 03/25/2016 Lipid Ord30 CHOL 176 mg/dL 03/25/2016 Lipid Ord30 HDL 63.0 mg/dl 03/25/2016 Lipid Ord30 TRIG 66 mg/dL 03/25/2016 Lipid Ord30 LDL 100 mg/dL 03/25/2016 Lipid Ord30 C/HDL 2.8 Ratio 03/25/2016 CHEM 14 20280419 AST 24 U/L 03/14/2012 CHEM 14 20280419 ALT 26 IU/L 03/14/2012 CHEM 14 20280419 BUN 17 MG/DL 03/14/2012 CHEM 14 20280419 ALBUMIN 4.8 GM/DL 03/14/2012 CHEM 14 20280419 CHLORIDE 106 MMOL/L 03/14/2012 CHEM 14 20280419 BILI TOT 0.6 MG/DL 03/14/2012 CHEM 14 9793513 ALK PHOS 115 U/L 03/14/2012 CHEM 14 2710783 SODIUM 141 MMOL/L 03/14/2012 CHEM 14 2169048 CREATININE 0.78 MG/DL 03/14/2012 CHEM 14 1402213 CALCIUM 9.9 MG/DL 03/14/2012 CHEM 14 2558690 POTASSIUM 4.2 MMOL/L 03/14/2012 CHEM 14 4708292 PROT TOT 7.4 GM/DL 03/14/2012 CHEM 14 4155914 GLUCOSE 91 MG/DL 03/14/2012 CHEM 14 1126900 BICARB 27 MMOL/L 03/14/2012 CHEM 14 3407964 ANION GAP 8 MEQ/L 03/14/2012 GFR CALC 8792321 GFR AA >60 ML/MIN 03/14/2012 GFR CALC GFR NON-AA >60 ML/MIN 03/14/2012 TSH 1723914 TSH 2.609 uIU/ML 03/14/2012 LIPID GRP HDL TEST 63 MG/DL 03/14/2012 LIPID GRP TRIG 68 MG/DL 03/14/2012 LIPID GRP TEST LDL 88 MG/DL 03/14/2012 LIPID GRP CHOL 165 MG/DL 03/14/2012 LIPID GRP RCHOL/HDL 2.62 RATIO 03/14/2012 CBC 3502638 WBC 5.9 10e9/L 03/14/2012 CBC 0132446 RBC 4.62 10e12/L 03/14/2012 CBC 2159270 HGB 14.5 g/dL 03/14/2012 CBC 7151899 HCT DET 42.4 % 03/14/2012 CBC 2715606 MCV 91.8 fL 03/14/2012 CBC 4324508 MCH 31.4 pg 03/14/2012 CBC 6871378 MCHC 34.2 g/dL 03/14/2012 CBC 0243169 PLT 370 10e9/L 03/14/2012 CBC 2266529 MPV 10.2 fL 03/14/2012 CBC 7736130 NANO % 36.6 % 03/14/2012 CBC 1528248 LY % 47.6 % 03/14/2012 CBC 4270488 MON % 10.0 % 03/14/2012 CBC 4096592 EOS % 5.6 % 03/14/2012 CBC 0952367 BASO % 0.2 % 03/14/2012 CBC 9423417 RDW 12.3 % 03/14/2012 CBC 1323343 ABS NANO 2.16 10e9/L 03/14/2012 CBC 1492715 ABS LYMPH 2.81 10e9/L 03/14/2012 CBC 7853495 ABS MONO 0.59 10e9/L 03/14/2012 CBC 8941209 ABS EOS 0.33 10e9/L 03/14/2012 CBC 1116135 ABS BASO 0.01 10e9/L 03/14/2012 CBC 1454669 RDW-SD 40.4 fL 03/14/2012 Review of Systems System Result Effective Dates Constitutional recent illness 11/07/2018 Constitutional No anorexia [...] clear 02/17/2014 None Full Exam - General 1995 Ears/Nose/Throat [...] clear 09/25/2013 None Full Exam - General 1994 Ears/Nose/Throat oral cavity/pharynx/larynx Overall: oropharyngeal mucosa clear 09/25/2013 None Full Exam - General 1994 Ears/Nose/Throat oral cavity/pharynx/larynx Overall: no masses 09/25/2013 [...] 1994 Ears/Nose/Throat oral cavity/pharynx/larynx Overall: no masses 2013 None Full Exam - General 1994 Respiratory auscultation Overall: breath sounds clear bilaterally 2013 None Full Exam - General 1994 Respiratory respiratory effort/rhythm Overall: no retractions 2013 None Full Exam - General 1994 Respiratory respiratory effort/rhythm Overall: normal rate 2013 None Full Exam - General 1994 Cardiovascular auscultation of heart Overall: regular rate 2013 None Full Exam - General 1994 Cardiovascular auscultation of heart Overall: normal heart sounds 2013 None Full Exam - General 1994 Abdomen abdominal exam Overall: no tenderness 2013 None Full Exam - General 1994 Abdomen [...] affect 2013 None Full Exam - General 1995 Constitutional general appearance Overall: well developed 03/22/2013 None Full Exam - General 1994 Constitutional general appearance Overall: in no acute distress 03/22/2013 None Full Exam - General 1994 Constitutional general appearance Overall: well nourished 03/22/2013 None Full Exam - General 1994 Eyes pupils and irises Overall: pupils equal, round, reactive to light and accomodation 03/22/2013 None Full Exam - General 1995 Ears/Nose/Throat oral cavity/pharynx/larynx Overall: oral mucosa clear [...] tenderness 03/22/2013 None Full Exam - General 1994 [...] Formatting Model/CDA Sections, Assigned to/Juana Ji CPT-4: [id number] 06/28/2018 DRAIN/INJECT JOINT/BURSA CPT-4: 38202 01/29/2018 TRIAMCINOLONE ACET INJ NOS CPT-4: J3301 01/29/2018 PPPS, SUBSEQ VISIT CPT -4: G0439 01/08/2018 THER/PROPH/DIAG INJ SC/IM CPT-4: 13798 08/21/2017 TRIAMCINOLONE ACET INJ NOS CPT-4: J3301 08/21/2017 ADMIN INFLUENZA VIRUS VAC CPT-4: G0008 07/18/2017 FLU VACC PRSV FREE INC ANTIG CPT-4: 03422 07/18/2017 TRIAMCINOLONE ACET INJ NOS CPT-4: J3301 06/30/2017 TRIAMCINOLONE ACET INJ NOS CPT-4: J3301 05/09/2017 THER/PROPH/DIAG INJ SC/IM CPT-4: 53147 05/09/2017 TRIAMCINOLONE ACET INJ NOS CPT-4: J3301 01/30/2017 PPPS, SUBSEQ VISIT CPT -4: G0439 01/02/2017 ADMIN INFLUENZA VIRUS VAC CPT-4: G0008 07/13/2016 FLU VACC PRSV FREE INC ANTIG CPT-4: 39795 07/13/2016 ADMIN INFLUENZA VIRUS VAC CPT-4: G0008 07/10/2015 FLU VACC 4 KARI 3 YRS PLUS IM Formatting Model/CDA Sections, Assigned to/Juana Ji CT: [id number] CPT-4: 84979Qmdcuht 07/10/2015 TRIAMCINOLONE ACET INJ NOS CPT-4: J3301 05/29/2015 ROCEPHIN, PER 250 MG CPT-4: J0696 05/29/2015 THER/PROPH/DIAG INJ SC/IM CPT-4: 52301 10/15/2014 TRIAMCINOLONE ACET INJ NOS CPT-4: J3301 10/15/2014 ROCEPHIN, PER 250 MG CPT-4: J0696 10/15/2014 THER/PROPH/DIAG INJ SC/IM CPT-4: 53674 02/17/2014 TRIAMCINOLONE ACET INJ NOS CPT-4: J3301 02/17/2014 ROCEPHIN, PER 250 MG CPT-4: J0696 12/05/2013 ADMIN INFLUENZA VIRUS VAC CPT-4: G0008 07/09/2013 FLULAVAL VACC, 3 YRS & >, IM CPT-4: Q2036 07/09/2013 ROCEPHIN, PER 250 MG CPT-4: J0696 10/23/2012 PRESCRIP TRANSMIT VIA ERX SY CPT-4: G8553 10/23/2012 ROUTINE VENIPUNCTURE CPT-4: 45819 03/14/2012 ADMIN INFLUENZA VIRUS VAC CPT-4: G0008 07/05/2011 FLULAVAL VACC, 3 YRS & >, IM CPT-4: Q2036 07/05/2011 ROUTINE VENIPUNCTURE CPT-4: 49864 06/28/2011 PRESCRIP TRANSMIT VIA ERX SY CPT-4: G8553 06/27/2011 Vital Signs Date Vital 11/07/2018 Blood Pressure 1: 140/70 Code : 8480-6 BMI: 31.1 Code : 16956-4 Heart Rate 1 : 91 bpm Height: 5'2" SpO2: 99% Weight: 170 lbs 09/04/2018 Blood Pressure 1: 140/80 Code : 8480-6 BMI: 31.3 Code : 58187-0 Heart Rate 1 : 82 bpm Height: 5'2" SpO2: 95% Weight: 171 lbs 07/10/2018 Blood Pressure 1: 144/46 Code : 8480-6 BMI: 31.5 Code : 61413-3 Heart Rate 1 : 86 bpm Height: 5'2" SpO2: 97% Weight: 172 lbs 06/19/2018 Blood Pressure 1: 150/80 Code : 8480-6 BMI: 31.5 Code : 34221-6 Heart Rate 1 : 94 bpm Height: 5'2" SpO2: 96% Weight: 172 lbs 6 oz 01/29/2018 Blood Pressure 1: 148/66 Code : 8480-6 BMI: 31.8 Code : 33457-1 Heart Rate 1 : 80 bpm Height: 5'2" SpO2: 96% Weight: 174 lbs 01/08/2018 Blood Pressure 1: 122/72 Code : 8480-6 BMI: 32.0 Code : 06356-4 Heart Rate 1 : 79 bpm Height: 5'2" SpO2: 99% Weight: 175 lbs 08/21/2017 Blood Pressure 1: 162/78 Code : 8480-6 BMI: 32.2 Code : 66260-3 Heart Rate 1 : 82 bpm Height: 5'2" SpO2: 97% Temperature: 36.6 (C) / 97.8 (F) Weight: 176 lbs 07/18/2017 Blood Pressure 1: 136/70 Code : 8480-6 BMI: 31.9 Code : 54236-9 Heart Rate 1 : 81 bpm Height: 5'2" SpO2: 96% Weight: 174 lbs 8 oz 06/30/2017 Blood Pressure 1: 128/74 Code : 8480-6 BMI: 31.8 Code : 09225-3 Heart Rate 1 : 89 bpm Height: 5'2" SpO2: 97% Weight: 174 lbs 05/08/2017 Blood Pressure 1: 148/82 Code : 8480-6 BMI: 30.9 Code : 74320-9 Heart Rate 1 : 79 bpm Height: 5'2" SpO2: 95% Weight: 169 lbs 02/14/2017 Blood Pressure 1: 126/72 Code : 8480-6 Heart Rate 1: 76 bpm Height: 5'2" SpO2: 97% Weight: 01/31/2017 Blood Pressure 1: 154/80 Code : 8480-6 BMI: 32.0 Code : 00715-2 Heart Rate 1 : 81 bpm Height: 5'2" SpO2: 97% Weight: 175 lbs 01/30/2017 Blood Pressure 1: 136/78 Code : 8480-6 Heart Rate 1: 92 bpm Height: 5'2" SpO2: 96% Temperature: 37.4 (C) / 99.3 (F) Weight: 01/02/2017 Blood Pressure 1: 146/66 Code : 8480-6 BMI: 31.8 Code : 25346-1 Heart Rate 1 : 81 bpm Height: 5'2" SpO2: 98% Weight: 174 lbs 12/29/2016 Blood Pressure 1: 140/78 Code : 8480-6 BMI: 31.8 Code : 17426-3 Heart Rate 1 : 88 bpm Height: 5'2" SpO2: 97% Weight: 174 lbs 03/24/2016 Blood Pressure 1: 132/88 Code : 8480-6 BMI: 31.6 Code : 23012-8 Heart Rate 1 : 91 bpm Height: 5'2" SpO2: 99% Weight: 173 lbs 09/25/2015 Blood Pressure 1: 112/60 Code : 8480-6 BMI: 31.3 Code : 48886-8 Heart Rate 1 : 85 bpm Height: 5'2" SpO2: 97% Weight: 171 lbs 08/24/2015 Blood Pressure 1: 142/60 Code : 8480-6 BMI: 30.9 Code : 06170-7 Heart Rate 1 : 94 bpm Height: 5'2" SpO2: 97% Weight: 169 lbs 06/12/2015 Blood Pressure 1: 122/64 Code : 8480-6 BMI: 31.1 Code : 69837-7 Heart Rate 1 : 91 bpm Height: 5'2" SpO2: 97% Weight: 170 lbs 05/29/2015 Blood Pressure 1: 150/78 Code : 8480-6 BMI: 31.6 Code : 75213-2 Heart Rate 1 : 79 bpm Height: 5'2" SpO2: 93% Weight: 173 lbs 03/26/2015 Blood Pressure 1: 124/82 Code : 8480-6 BMI: 31.8 Code : 65902-2 Heart Rate 1 : 80 bpm Height: 5'2" Respiratory Rate: 20 bpm Weight: 174 lbs 03/17/2015 Blood Pressure 1: 128/78 Code : 8480-6 BMI: 31.8 Code : 03947-4 Heart Rate 1 : 84 bpm Height: 5'2" Respiratory Rate: 20 bpm Weight: 174 lbs 10/15/2014 Blood Pressure 1: 130/64 Code : 8480-6 BMI: 32.6 Code : 60711-1 Heart Rate 1 : 80 bpm Height: 5'2" Weight: 178 lbs 04/10/2014 Blood Pressure 1: 128/70 Code : 8480-6 BMI: 31.6 Code : 36108-7 Heart Rate 1 : 80 bpm Height: 5'2" Weight: 173 lbs 02/17/2014 Blood Pressure 1: 108/58 Code : 8480-6 BMI: 32.0 Code : 63697-2 Heart Rate 1 : 80 bpm Height: 5'2" Temperature: 37.4 (C) / 99.3 (F) Weight: 175 lbs 12/05/2013 Blood Pressure 1: 144/80 Code : 8480-6 Heart Rate 1: 72 bpm SpO2: 98% Temperature: 36.9 (C) / 98.4 (F) Weight: 177 lbs 09/25/2013 Blood Pressure 1: 136/82 Code : 8480-6 BMI: 32.7 Code : 81817-5 Heart Rate 1 : 84 bpm Height: 5'2" Weight: 179 lbs 07/09/2013 Blood Pressure 1: 144/70 Code : 8480-6 BMI: 32.0 Code : 12801-6 Heart Rate 1 : 76 bpm Height: 5'2" Weight: 175 lbs 2013 Blood Pressure 1: 128/72 Code : 8480-6 BMI: 31.8 Code : 51688-4 Heart Rate 1 : 68 bpm Height: 5'2" Weight: 174 lbs 03/22/2013 Blood Pressure 1: 128/68 Code : 8480-6 BMI: 31.8 Code : 51949-9 Heart Rate 1 : 68 bpm Height: 5'2" Weight: 174 lbs 02/28/2013 Blood Pressure 1: 128/72 Code : 8480-6 BMI: 31.5 Code : 88547-3 Heart Rate 1 : 80 bpm Height: 5'2" Weight: 172 lbs 10/23/2012 Blood Pressure 1: 124/78 Code : 8480-6 Heart Rate 1: 68 bpm Temperature: 36.8 (C) / 98.2 (F) Weight: 172 lbs 03/08/2012 Blood Pressure 1: 124/68 Code : 8480-6 Heart Rate 1: 80 bpm Weight: 171 lbs 09/28/2011 Blood Pressure 1: 112/58 Code : 8480-6 BMI: 31.6 Code : 68054-5 Heart Rate 1 : 76 bpm Height: 5'2" Respiratory Rate: 16 bpm Weight: 173 lbs 06/27/2011 Blood Pressure 1: 117/61 Code : 8480-6 BMI: 30.4 Code : 05353-1 Heart Rate 1 : 86 bpm Height: 5'3" Weight: 171 lbs 8 oz Functional Status No Functional Status data History of Present Illness Symptom Name Status Result Effective Date Notes Onset and Resolution ongoing 11/07/2018 None Pertinent [...] 3 days per week 01/08/2018 works at [employer] Annual Medicare Wellness Exam Handling Stress often [...] 03/08/2012 Works 3 days per week at [employer], is retired osteoarthritis Frequency of Episodes unchanged [...] data Encounters Encounter Performer Location Codes Date ([id number]) [id number] EST. PATIENT, LEVEL III Diagnosis: Chronic obstructive pulmonary disease with (acute) exacerbation[ICD10 : J44.1] Diagnosis: Postherpetic trigeminal neuralgia[ICD10: B02.22] Deneen Rosenberg MD, [facility] CPT-4: 01591 11/07/2018 [id number]) [id number] EST. PATIENT, LEVEL IV Diagnosis: Essential (primary) hypertension[ICD10: I10] Diagnosis: Chronic frontal sinusitis[ICD10: J32.1] Deneen Rosenberg MD, [facility] CPT-4: 81043 09/04/2018 [id number]) 67119 EST. PATIENT, LEVEL III Diagnosis: Other retention of urine[ICD10: R33.8] Diagnosis: Mild intermittent asthma with (acute) exacerbation[ICD10: J45.21] [facility] CPT-4: 19868 07/10/2018 [id number]) 75096 EST. PATIENT, LEVEL IV Diagnosis: Primary hyperparathyroidism[ICD10: E21.0] Diagnosis: Personal history of other diseases of the musculoskeletal system and connective tissue[ICD10: Z87.39] Deneen Rosenberg MD, [facility] CPT-4: 02454 06/19/2018 07773 EST. PATIENT, LEVEL III Diagnosis: Low back pain[ICD10: M54.5] Diagnosis: Sciatica, right side[ICD10: M54.31] Chastity Rosenberg MD, [facility] CPT-4: 70246 01/29/2018 [id number] EST. PATIENT, LEVEL III Diagnosis: Mild intermittent asthma with (acute) exacerbation[ICD10: J45.21] Diagnosis: Cough[ICD10: R05] Diagnosis: Other allergic rhinitis[ICD10: J30.89] Chastity Rosenberg MD, [facility] CPT-4: 55643 08/21/2017 ([id number]) 42177 EST. PATIENT, LEVEL IV Diagnosis: Mild intermittent asthma with (acute) exacerbation[ICD10: J45.21] Diagnosis: Essential (primary) hypertension[ICD10: I10] Diagnosis: Encounter for immunization[ICD10: Z23] Diagnosis: Sciatica, right side[ICD10: M54.31] Diagnosis: Low back pain[ICD10: M54.5] Deneen Rosenberg MD, [facility] CPT- 4: 86995 07/18/2017 ([id number]) 25272 EST. PATIENT, LEVEL III Diagnosis: Cough[ICD10: R05] Diagnosis: Other allergic rhinitis[ICD10: J30.89] Lalitha Rosenberg MD, [facility] CPT-4: 92899 06/30/2017 [id number] EST. PATIENT, LEVEL III Diagnosis: Low back pain[ICD10: M54.5] Diagnosis: Dizziness and giddiness[ICD10: R42] Chastity Rosenberg MD, [facility] CPT-4: 52914 05/08/2017 ([id number]) 04383 EST. PATIENT, LEVEL III Diagnosis: Essential (primary) hypertension[ICD10: I10] Diagnosis: Low back pain[ICD10: M54.5] Diagnosis: Sciatica, right side[ICD10: M54.31] Deneen Rosenberg MD, [facility] CPT-4: 88794 02/14/2017 ([id number]) 20262 EST. PATIENT, LEVEL III Diagnosis: Essential (primary) hypertension[ICD10: I10] Deneen Rosenberg MD, [facility] CPT-4: 42729 01/31/2017 ([id number]) 05191 EST. PATIENT, LEVEL III Diagnosis: Cough[ICD10: R05] Diagnosis: Acute recurrent maxillary sinusitis[ICD10: J01.01] Lalitha Rosenberg MD, [facility] CPT-4: 44159 01/30/2017 ([id number]) 82994 EST. PATIENT, LEVEL III Diagnosis: Essential (primary) hypertension[ICD10: I10] Diagnosis: Mild intermittent asthma with (acute) exacerbation[ICD10: J45.21] Diagnosis: Tinea corporis[ICD10: B35.4] Deneen Rosenberg MD, [facility] CPT- 4: 04286 12/29/2016 ([id number]) Miscellaneous no charge Diagnosis: Epistaxis[ICD10: R04.0] Chastity Rosenberg MD, [facility] CPT-4: 52755 04/01/2016 ([id number]) 63475 EST. PATIENT, LEVEL IV Diagnosis: Essential (primary) hypertension[ICD10: I10] Diagnosis: Mild intermittent asthma, uncomplicated[ICD10: J45.20] Diagnosis: Insomnia, unspecified[ICD10: G47.00] Lalitha Rosenberg MD, [facility] CPT-4: 41377 03/24/2016 15615 EST. PATIENT, LEVEL III Diagnosis: Mild intermittent asthma with (acute) exacerbation[ICD10: J45.21] Diagnosis: Epistaxis[ICD10: R04.0] Chastity Rosenberg MD, [facility] CPT-4: 13151 09/25/2015 ([id number]) 53877 EST. PATIENT, LEVEL III Diagnosis: Acute recurrent maxillary sinusitis[ICD10: J01.01] Diagnosis: Allergic rhinitis due to pollen[ICD10: J30.1] Lalitha Rosenberg MD, [facility] CPT-4: 48355 08/24/2015 ([id number]) 07445 EST. PATIENT, LEVEL IV Diagnosis: Well woman exam[ICD9: V70.0] Diagnosis: Encounter for screening for malignant neoplasm of vagina[ICD10: Z12.72] Diagnosis: Pelvic and perineal pain[ICD10: R10.2] Lalitha Rosenberg MD, [facility] CPT-4: 44377 06/12/2015 ([id number]) 59467 EST. PATIENT, LEVEL III Diagnosis: Tinea corporis[ICD9: 110.5] Diagnosis: ACUTE MAXILLARY SINUSITIS[ICD9: 461.0] Lalitha Rosenberg MD, [facility] CPT-4: 91893 05/29/2015 ([id number]) 29220 EST. PATIENT, LEVEL IV Diagnosis: Skin tag[ICD9: 701.9] Diagnosis: Seborrheic keratoses[ICD9: 702.19] Diagnosis: Comedone[ICD9: 706.1] Diagnosis: IMPACTED CERUMEN[ICD9: 380.4] Rosemarie Rosenberg MD, [facility] CPT-4 : 24868 03/26/2015 ([id number]) 20395 EST. PATIENT, LEVEL IV Diagnosis: ESSENTIAL HYPERTENSION[ICD9: 401.9] Diagnosis: HYPERLIPIDEMIA[ICD9: 272.4] Diagnosis: Fatigue[ICD9: 780.79] Diagnosis: INSECT BITE HIP/LEG[ICD9: 916.4] Rosemarie Rosenberg MD, [facility] CPT- 4: 62903 03/17/2015 ([id number]) 03451 EST. PATIENT, LEVEL IV Diagnosis: Acute bronchitis[ICD9: 466.0] Diagnosis: MALAISE AND FATIGUE[ICD9: 780.79] Diagnosis: COUGH[ICD9: 786.2] Diagnosis: CHRONIC OBSTRUCTIVE ASTHMA WITH EXACERBATION[ICD9: 493.22] Deneen Rosenberg MD , [facility] CPT-4: 70407 10/15/2014 ([id number]) 47766 EST. PATIENT, LEVEL III Diagnosis: Acute anterior epistaxis[ICD9: 784.7] Diagnosis: ESSENTIAL HYPERTENSION[ICD9: 401.9] Lalitha Rosenberg MD, [facility] CPT-4: 14299 04/10/2014 ([id number]) 41712 EST. PATIENT, LEVEL III Diagnosis: Acute bronchitis[ICD9: 466.0] Diagnosis: COUGH[ICD9: 786.2] Diagnosis: Nasal congestion[ICD9: 478.19] Deneen Rosenberg MD, [facility] CPT- 4: 63988 02/17/2014 ([id number]) 67136 EST. PATIENT, LEVEL III Diagnosis: ACUTE SINUSITIS[ICD9: 461.9] Lalitha Rosenberg MD, [facility] CPT-4: 76967 12/05/2013 ([id number]) 82110 EST. PATIENT, LEVEL IV Diagnosis: HYPERLIPIDEMIA[ICD9: 272.4] Diagnosis: CHRONIC OBSTRUCTIVE ASTHMA[ICD9: 493.20] Diagnosis: SLEEP APNEA NOS[ICD9: 780.57] Diagnosis: GENERAL OSTEOARTHROSIS-MULT[ICD9: 715.09] Deneen Rosenberg MD [facility] CPT-4: 90623 09/25/2013 ([id number]) 04675 EST. PATIENT, LEVEL III Diagnosis: CHRONIC OBSTRUCTIVE ASTHMA[ICD9: 493.20] Deneen Rosenberg MD [facility] CPT-4: 00081 07/09/2013 ([id number]) Miscellaneous no charge Diagnosis: CHRONIC OBSTRUCTIVE ASTHMA[ICD9: 493.20] Deneen Rosenberg MD [facility] CPT-4: 77054 06/11/2013 ([id number]) 63727 EST. PATIENT, LEVEL IV Diagnosis: CHRONIC OBSTRUCTIVE ASTHMA[ICD9: 493.20] Diagnosis: Sleep apnea[ICD9: 780.57] Deneen Rosenberg MD, [facility] CPT-4: 80175 2013 ([id number]) 25720 EST. PATIENT, LEVEL IV Diagnosis: CHRONIC OBSTRUCTIVE ASTHMA[ICD9: 493.20] Diagnosis: OSTEOARTH NOS-UNSPEC[ICD9: 715.90] Diagnosis: MALAISE AND FATIGUE[ICD9: 780.79] Deneen Rosenberg MD, [facility] CPT-4: 37407 03/22/2013 ([id number]) 16494 EST. PATIENT, LEVEL IV Diagnosis: HYPERLIPIDEMIA[ICD9: 272.4] Diagnosis: OSTEOARTH NOS-UNSPEC[ICD9: 715.90] Diagnosis: MALAISE AND FATIGUE[ICD9: 780.79] Deneen Rosenberg MD, [facility] CPT-4: 02585 02/28/2013 ([id number]) 35963 EST. PATIENT, LEVEL III Diagnosis: ACUTE SINUSITIS[ICD9: 461.9] Diagnosis: COUGH[ICD9: 786.2] Lalitha Rosenberg MD, [facility] CPT-4: 64701 10/23/2012 ([id number]) 91027 EST. PATIENT, LEVEL IV Diagnosis: ESSENTIAL HYPERTENSION[SNOMED: [id number]] Diagnosis: HYPERLIPIDEMIA[ICD9: 272.4] Diagnosis: CHRONIC OBSTRUCTIVE ASTHMA[ICD9: 493.20] Deneen Rosenberg MD, [facility] CPT-4: 52225 03/08/2012 ([id number]) 53037 EST. PATIENT, LEVEL IV Diagnosis: CHRONIC OBSTRUCTIVE ASTHMA[ICD9: 493.20] Diagnosis: Primary generalized (osteo)arthritis[ICD9: 715.09] Diagnosis: PAIN IN LIMB[ICD9: 729.5] Deneen Rosenberg MD, [facility] CPT-4: 28176 09/28/2011 [id number] EST. PATIENT, LEVEL IV Diagnosis: ACUTE SINUSITIS[ICD9: 461.9] Diagnosis: Asthma[ICD9: 493.90] Diagnosis: Osteoarthritis[ICD9: 715.90] Diagnosis: Hyperlipidemia[ICD9: 272.4] Lalitha Rosenberg MD, [facility] CPT-4: 98186 06/27/2011 Plan of Care Planned Activity Notes Codes Status Date Visit Plan: Trigeminal Neuralgia - due to shingles - rx for prednisone taper and valcyvlovir 1 gram bid. COPD - rx for albuterol and proair. 11/07/2018 Appointment: Deneen Rosenberg WPtel: [address] [place], [place] [id number] (15 min) Moderate 11/07/2018 Patient Education: Patient [...] 10 days. 09/04/2018 Appointment: Deneen Rosenberg [facility]Ptel: [facility] ([place] min) Moderate 09/04/2018 Patient Education: Patient Medication Summary Completed 09/04/2018 Patient Education: Hypertension Completed 09/04/2018 Visit Plan: Asthma - chronic problem for this patient. We have reviewed chronic treatment strategy, symptom control, and plans for acute exacerbations. No changes today to the current treatment plan as the patient is stable, monitor for acute changes 07/10/2018 Appointment: Deneen Rosenberg WPtel: [facility] [place] (15 min) Moderate 07/10/2018 Patient Education: Patient Medication Summary Completed 07/10/2018 Appointment: Injection 06/28/2018 Patient Education: Patient Medication Summary Completed 06/28/2018 Visit Plan: Elevated PTH - parathyroid nuclear medicine uptake at [facility] in [place] - 06/26, , 13 are open Osteopenia - discussed the pt's dx and the fact that insurance will not pay for prolia due to lack of dx of Osteoporosis. 06/19/2018 Appointment: Deneen Rosenberg WPtel: [facility] [place] (15 min) Moderate 06/19/2018 Patient Education: Patient [...] of injection. 01/29/2018 Appointment: [phone] (30 min) Complex 01/29/2018 Patient Education: Patient [...] paperwork for health care surrogate. 01/08/2018 Appointment: Lalitha Alcala [facility]Ptel[phone] [phone] [facility] - Annual Wellness Visit 01/08/2018 Patient Education: [...] changes 07/18/2017 Appointment: Deneen Rosenberg WPtel: [phone] [facility] (15 min) Moderate 07/18/2017 Patient Education: Patient [...] persist 06/30/2017 Appointment: Lalitha Alcala WPtel: [phone] [phone] (15 min) Moderate 06/30/2017 Patient Education: Patient [...] or concerns. 05/08/2017 Appointment: Chastity Chavira WPtel: [phone] [facility] (30 min) Complex 05/08/2017 Patient Education: Patient [...] they worsen. 02/14/2017 Appointment: Deneen Rosenberg WPtel: [phone] [facility] (15 min) Moderate 02/14/2017 Patient Education: Patient Medication Summary Completed 02/14/2017 Care Plan: Referral Order SNOMED-CT : [id number] Pending 02/14/2017 Appointment: Deneen Rosenberg WPtel: [phone] [facility] [place] (15 min) Moderate 02/01/2017 Visit Plan: Hypertension - well controlled - continue with current medications, continue with no added salt diet. Pt has been encouraged to exercise daily. The pt has been advised to call the office if there are any acute concerns about change in blood pressure readings at home. Cough - improved from yesterday. 01/31/2017 Appointment: Deneen Rosenberg WPtel: [phone] [facility] [place] (15 min) Moderate 01/31/2017 Patient Education: Patient Medication Summary Completed 01/31/2017 Patient Education: Obesity Completed 01/31/2017 Patient Education: Hypertension Completed 01/31/2017 Visit Plan: Sinusitis - Pt has acute infection - pain in face, maxillary region, Pt informed to use decongestant, RX given to patient, sinus rinses also recommended. Call if symptoms do not show improvement. 01/30/2017 Appointment: Lalitha Alcala [facility]Ptel[phone] [phone] [place] (15 min) Moderate 01/30/2017 Patient Education: Patient [...] Ketoconazole shampoo. 12/29/2016 Appointment: Deneen Rosenberg [facility]Ptel: [phone] [place] (15 min) Moderate 12/29/2016 Patient Education: Patient Medication Summary Completed 12/29/2016 Patient Education: Obesity Completed 12/29/2016 Patient Education: Hypertension Completed 12/29/2016 Patient Education: Patient Medication Summary Completed 12/26/2016 Appointment: Injection 07/13/2016 Patient Education: Patient Medication Summary Completed 07/13/2016 Visit Plan: Pt went to ED from office, stating she does not think she will be able to get to her ENT in [place]. 04/01/2016 Appointment: Lalitha Alcala [facility]Ptel[phone] (30 min) Complex 04/01/2016 Patient Education: Patient [...] when traveling 03/24/2016 Appointment: Lalitha Alcala WPtel: [phone] (30 min) Complex 03/24/2016 Patient Education: Patient Medication Summary Completed [...] Care Plan: COMPLETE CBC AUTOMATED LOINC : 30675-7 Ordered 03/17/2015 Visit Plan: Asthma EXACERBATION - [...] acutely worsen. 10/15/2014 Appointment: Deneen Rosenberg WPtel: [address] [place], [place] [id number] [facility] 10/15/2014 Patient Education: Patient Medication Summary Completed [...] show improvement. 12/05/2013 Appointment: Lalitha Alcala WPtel: [phone] [phone] [place] [address] 12/05/2013 Patient Education: Patient Medication Summary Completed 12/05/2013 Appointment: Deneen Rosenberg WPtel: [phone] [facility] Follow up 10/01/2013 Visit Plan: Hyperlipidemia - [...] consider cpap. 09/25/2013 Appointment: Deneen Rosenberg WPtel: [phone] [facility] Follow up 09/25/2013 Patient Education: Patient Medication Summary Completed 09/25/2013 Visit Plan: Asthma - chronic problem for this patient. We have reviewed chronic treatment strategy, symptom control, and plans for acute exacerbations. No changes today to the current treatment plan as the patient is stable, monitor for acute changes 07/09/2013 Appointment: Deneen Rosenberg WPtel: [facility] [place] Follow up 07/09/2013 Patient Education: Patient Medication Summary Completed 07/09/2013 Appointment: Deneen Rosenberg WPtel: [facility] Follow up 07/01/2013 Appointment: Lalitha Alcala WPtel: [phone] Lab Draw 06/11/2013 Patient Education: Patient Medication [...] beneficial in her noctural hypoxemia. 2013 Appointment: Lyndsay Rosenbergy WPtel: [facility]66[facility] Other 2013 Patient Education: Patient Medication Summary [...] TUNNEL ENTRAPMENT. 03/22/2013 Appointment: Deneen Rosenberg WPtel: [facility] Other 03/22/2013 Patient Education: Patient Medication Summary [...] check labs. 02/28/2013 Appointment: Deneen Rosenberg WPtel: [phone] [facility] Follow up 02/28/2013 Patient Education: Patient Medication Summary Completed 02/28/2013 Visit Plan: Sinusitis - Pt has acute infection - pain in face, maxillary region, Pt informed to use decongestant, RX given to patient, sinus rinses also recommended. Call if symptoms do not show improvement. Rocephin injection today in the office 10/23/2012 Appointment: Lalitha Alcala [facility]Ptel[phone] [facility] 10/23/2012 Patient Education: Patient Medication Summary Completed 10/23/2012 Appointment: Deneen Rosenberg WPtel: [phone] [facility] Lab Draw 03/14/2012 Patient Education: Patient Medication [...] to medications. 03/08/2012 Appointment: Deneen Rosenberg WPtel: [phone] [facility] Other 03/08/2012 Patient Education: Patient Medication Summary Completed 03/08/2012 Patient Education: High Blood Pressure: Essential Hypertension Completed 2011 Visit Plan: Asthma- controlled by the current medication.. No change in the treatment at this time. Osteoarthritis- pt has been instructed to use celebrex twice daily on the days that she is working. 09/28/2011 Appointment: Deneen Rosenberg WPtel: [phone] [facility] Follow up 09/28/2011 Patient Education: Patient Medication Summary Completed 09/28/2011 Appointment: Deneen Rosenberg [facility]Ptel: [phone] [place] [place] Injection 07/05/2011 Patient Education: Patient Medication Summary Completed 07/05/2011 Appointment: Deneen Rosenberg WPtel: [phone] [facility] Lab Draw 06/28/2011 Patient Education: Patient Medication [...] as indicated. 06/27/2011 Appointment: Lalitha Alcala WPtel: [phone] Other 06/27/2011 Patient Education: Patient Medication Summary Completed 06/27/2011 Care Plan: CBC (COMPLETE CBC W/AUTO DIFF WBC) LOINC : 07756-4 Ordered 06/27/2011 Care Plan: CHEM 14 (COMPREHEN METABOLIC PANEL) LOINC : 14001-5 Ordered 06/27/2011 Care Plan: LIPID GRP (LIPID PANEL) LOINC : 97980-3 Ordered 06/27/2011 Care Plan: TSH (ASSAY THYROID STIM HORMONE) Ordered 06/27/2011 Referral: External, Ordering Provider Referral Completed Referral: External, Ordering Provider They will call the patient with appt information. Completed Instructions Comment . Well Adult Female - exam completed. Pt will be called with results of her testing. She was advised to continue with yearly annual exams. Call if any abnormal gynecologic issues during the next year, otherwise, RTC yearly or prn. Vaginal dryness-samples of estrace cream Breathing treatments 3 times a day x [...] is stable, monitor for acute changes. . Hypertension - well controlled - continue [...] do not improve or if they worsen. DX sinusitis - discussed expected course with [...] patient and checks labs as indicated. . Medicare Exam - today we discussed [...] or with any other questions or concerns. . Low back pain- the patient was [...] pain occurs at the site of injection. . Well Adult Female - exam completed. [...] home. Cough - improved from yesterday. . Well Adult Female - exam completed. [...] if symptoms do not show improvement. . epistaxis - Pt states that she [...] stable, monitor for acute changes . Asthma - chronic problem for this [...] Call if bleeding returns. HTN-well controlled-no changes . Asthma EXACERBATION - ASTHMA is [...] not improved, or if symptoms acutely worsen. PT AGREED TO SLEEP STUDY AND PFT'S, [...] HAND/ARM PAIN - SUSPECT CARPAL TUNNEL ENTRAPMENT. Start Align or Culturelle Probiotic Daily, Sample [...] medications. Patient provided with mammogram order. . Sinusitis - Pt has acute infection - pain in face, maxillary region, Pt informed to use decongestant, RX given to patient, sinus rinses also recommended. Call if symptoms do not show improvement. sample of TUDORZA ONE INHALE TWICE DAILY, RINSE OUT MOUTH AFTER USE.. Asthma - chronic problem for this patient. We have reviewed chronic treatment strategy, symptom control, and plans for acute exacerbations. No changes today to the current treatment plan as the patient is stable, monitor for acute changes . Trigeminal Neuralgia - due to shingles [...] 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 . Asthma- controlled by the current medication.. No change in the treatment at this time. Osteoarthritis- pt has been instructed to use celebrex twice daily on the days that she is working. . Hyperlipidemia - pt has been counseled [...] to assure normal liver response to medications. SWITCH TO MIKHAIL . Sinusitis - Pt [...] in the nasal steroid allergy spray. . Hypertension - well controlled - continue with current medications, continue with no added salt diet. Pt has been encouraged to exercise daily. The pt has been advised to call the office if there are any acute concerns about change in blood pressure readings at home. Asthma - chronic - continue with current treatment. Rash - Ketoconazole shampoo. Start Align or Culturelle Probiotic Daily, Sample [...] medications. Patient provided with mammogram order. . Pt went to ED from office, stating she does not think she will be able to get to her ENT in [place]. . Sinusitis - Pt has acute infection - pain in face, maxillary region, Pt informed to use decongestant, RX given to patient, sinus rinses also recommended. Call if symptoms do not show improvement. Rocephin and kenalog injections today in the office Tinea-nystatin powder as directed-call if rash does not resolve or if any worse . Hypertension - well controlled - continue with current medications, continue with no added salt diet. Pt has been encouraged to exercise daily. The pt has been advised to call the office if there are any acute concerns about change in blood pressure readings at home. Sinusitis - Recommended pt to have diflucan x 10 days. . Elevated PTH - parathyroid nuclear medicine uptake at [facility] in [place] - 06/26, 12 , 13 are open Osteopenia - discussed the pt's dx and the fact that insurance will not pay for prolia due to lack of dx of Osteoporosis. . Medicare Exam - today we discussed [...] improved, or if symptoms acutely worsen. . Sinusitis - Pt has acute infection - pain in face, maxillary region, Pt informed to use decongestant, RX given to patient, sinus rinses also recommended. Call if symptoms do not show improvement. Rocephin injection today in the office recommended pt to hold the GEMFIBROZIL x [...] pain. Malais and fatigue - check labs. . Cerumen Impaction - The impacted cerumen [...]
--- OUTSIDE RECORDS SUMMARY | 2018-11-30 19:20 | XMS REPORT | CCD ---
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) and also during college she was exposed to smoke during her work in college 2013 Marital status Unknown Since 200406/26/2011 Number of children Unknown 3 2 daughters, 1 son 06/26/[address]: 063312273 Never drinks alcohol 06/26/2011 Has the patient [...] PENICILLINS Unknown 06/26/2011 No Inactive Date Active [id number] REDUCTASE INHIBITORS Unknown 06/26/2011 No Inactive Date [...] 06/11/2015 Unknown Pelvic and perineal pain ICD-9: [id number] ICD-10: R10.2 Active 06/11/2015 Unknown Well woman [...] 06/11/2015 Active Pelvic and perineal pain ICD-9: [id number] ICD-10: R10.2 06/11/2015 Active Well woman exam [...] Start Date Stop Date Status Fill Instructions ProAir HFA 90 mcg/actuation aerosol inhaler RxNorm: 7796771 1-2 INH QID as needed 11/07/2018 03/06/2019 Active valacyclovir 1 gram tablet RxNorm: 639187 1 Tablet(s) PO BID 11/20/2018 Active prednisone 10 mg tablet RxNorm: 099285 1 Tablet(s) PO UD 2tabs bid x3days, then 2tabs AM and 1tabPM x3days, then 1tab BID x 3days then 1tab AM x 3 days then stop 11/07/2018 No Stop Date Active albuterol sulfate 1.25 mg/3 mL solution for nebulization RxNorm: 740686 3 Milliliter(s) INH Q4 PRN as needed dyspnea from COPD 201811/01/2019 Active gemfibrozil 600 mg tablet RxNorm: 995356 1 TABLET(S) PO TAKE ONE TABLET BY MOUTH TWICE DAILY 10/15/2018 07/11/2019 Active amlodipine 2.5 mg tablet RxNorm: 226517 1 Tablet(s) PO daily 04/01/2019 Active Diflucan 150 mg tablet RxNorm: 353323 1 Tablet(s) PO daily 09/13/2018 Inactive albuterol sulfate 1.25 mg/3 mL solution for nebulization RxNorm: 021600 3 Milliliter(s) INH Q4 PRN as needed dyspnea 07/10/2018 11/06/2018 Inactive Diflucan 150 mg tablet RxNorm: 201640 1 Tablet(s) PO daily x 3 days then may repeat in 10 days if symptoms are not resolved in throat 01/201806/30/2018 Inactive Keflex 500 mg capsule RxNorm: 528161 1 Capsule(s) PO TID 201706/21/2018 Inactive Keflex 500 mg capsule RxNorm: 801685 1 Capsule(s) PO TID 201706/14/2018 Inactive paroxetine 20 mg tablet RxNorm: 3986472 TAKE 1/2 TABLET BY MOUTH EVERY DAY 05/09/2018 02/02/2019 Active prednisone 20 mg tablet RxNorm: 544535 2 Tablet(s) PO daily 03/22/2018 Inactive Celebrex 200 mg capsule RxNorm: 138337 TAKE 1 CAPSULE BY MOUTH TWO TIMES DAILY 03/08/2018 09/03/2018 Inactive - First Attempt Ref: [id number] Singulair 10 mg tablet RxNorm: 649027 Tablet(s) TAKE 1 TABLET BY MOUTH DAILY 02/27/2018 02/21/2019 Active Kenalog 40 mg/mL suspension for injection RxNorm: 6457635 1 Milliliter(s) Inj 02/02/2018 02/02/2018 Inactive Singulair 10 mg tablet RxNorm: 936464 TAKE 1 TABLET BY MOUTH DAILY 01/05/2018 02/26/2018 Inactive - First Attempt Ref: [id number] pantoprazole 40 mg tablet,delayed release RxNorm: 239070 Tablet(s) TAKE 1 TABLET DAILY 12/19/2017 01/07/2018 Inactive gemfibrozil 600 mg tablet RxNorm: 955125 1 TABLET(S) PO TAKE ONE TABLET BY MOUTH TWICE DAILY 12/05/2017 08/31/2018 Inactive albuterol sulfate 1.25 mg/3 mL solution for nebulization RxNorm: 378234 3 Milliliter(s) INH Q4 PRN as needed dyspnea 11/22/2017 05/20/2018 Inactive albuterol sulfate 1.25 mg/3 mL solution for nebulization RxNorm: 157786 3 Milliliter(s) INH Q4 PRN as needed dyspnea 11/02/2017 11/21/2017 Inactive methylprednisolone 4 mg tablets in a dose pack RxNorm: 212937 1 Tablet(s) PO UD 09/01/2017 No Stop Date Active albuterol sulfate 1.25 mg/3 mL solution for nebulization RxNorm: 101217 3 Milliliter(s) INH Q4 PRN as needed dyspnea 09/01/2017 11/01/2017 Inactive Keflex 500 mg capsule RxNorm: 463267 1 Capsule(s) PO TID 201609/10/2017 Inactive methylprednisolone 4 mg tablets in a dose pack RxNorm: 034910 1 Tablet(s) PO UD To start tomorrow 08/21/2017 08/31/2017 Inactive Kenalog 40 mg/mL suspension for injection RxNorm: 3633317 Milliliter(s) Inj 08/21/2017 08/21/2017 Inactive Levaquin 500 mg tablet RxNorm: 458009 1 Tablet(s) PO daily 03/201708/27/2017 Inactive Ativan 0.5 mg tablet RxNorm: 247423 1 Tablet(s) PO 1 hour before MRI, february repeat dose x1 07/21/2017 07/20/2017 Inactive Ativan 0.5 mg tablet RxNorm: 999988 1 Tablet(s) PO 1 hour before MRI, february repeat dose x1 07/21/2017 07/21/2017 Inactive ProAir HFA 90 mcg/actuation aerosol inhaler RxNorm: 5882875 1-2 INH QID as needed 07/18/2017 11/14/2017 Inactive Kenalog 40 mg/mL suspension for injection RxNorm: 2063851 Milliliter(s) Inj 06/30/2017 06/30/2017 Inactive albuterol sulfate 1.25 mg/3 mL solution for nebulization RxNorm: 204792 3 Milliliter(s) INH Q4 PRN as needed dyspnea 06/07/2017 08/31/2017 Inactive Keflex 500 mg capsule RxNorm: 351941 1 Capsule(s) PO TID 201606/01/2017 Inactive Keflex 500 mg capsule RxNorm: 690580 1 Capsule(s) PO TID 201606/08/2017 Inactive methylprednisolone 4 mg tablets in a dose pack RxNorm: 537682 1 Tablet(s) PO UD To start tomorrow 05/10/2017 08/20/2017 Inactive Kenalog 40 mg/mL suspension for injection RxNorm: 6654644 Milliliter(s) Inj 05/09/2017 05/09/2017 Inactive Voltaren 1 % topical gel RxNorm: 510290 1 Application TOP TID as needed 05/08/2017 No Stop Date Active paroxetine 20 mg tablet RxNorm: 2652618 TAKE 1/2 TABLET BY MOUTH EVERY DAY 05/03/2017 04/27/2018 Inactive gemfibrozil 600 mg tablet RxNorm: 679133 1 TABLET(S) PO TAKE ONE TABLET BY MOUTH TWICE DAILY 02/21/2017 11/17/2017 Inactive Celebrex 200 mg capsule RxNorm: 854828 1 Capsule(s) PO BID 02/02/2018 Inactive Celebrex 200 mg capsule RxNorm: 030907 1 Capsule(s) PO BID TAKE 1 CAPSULE TWICE DAILY 02/02/2017 02/07/2017 Inactive ketoconazole 2 % shampoo RxNorm: 250970 1 Application TOP daily x 1 week then weekly as needed for rash 01/31/2017 No Stop Date Active DC topical cream ProAir RespiClick 90 mcg/actuation breath activated RxNorm: 1827286 1 -2 INH Q4H as needed ASTHMA 01/31/2017 07/17/2017 Inactive Kenalog 40 mg/mL suspension for injection RxNorm: 3849377 1.5 Milliliter(s) Inj 01/30/2017 01/30/2017 Inactive Levaquin 500 mg tablet RxNorm: 023217 1 Tablet(s) PO daily 02/05/2017 Inactive Celebrex 200 mg capsule RxNorm: 586933 1 Capsule(s) PO BID TAKE 1 CAPSULE TWICE DAILY 01/30/2017 02/01/2017 Inactive methylprednisolone 4 mg tablets in a dose pack RxNorm: 267734 1 Tablet(s) PO UD 01/30/2017 05/08/2017 Inactive ketoconazole 2 % shampoo RxNorm: 097468 1 Application TOP daily x 1 week then weekly as needed for rash 12/30/201601/30 Inactive DC topical cream aspirin 81 mg tablet,delayed release RxNorm: 593352 1 Tablet(s) PO daily 12/29/2016 No Stop Date Active ketoconazole 2 % topical cream RxNorm: 242576 1 Application TOP daily x 1 week then weekly as needed for rash 12/29/2016 12/29/2016 Inactive Singulair 10 mg tablet RxNorm: 646699 Tablet(s) TAKE 1 TABLET DAILY 11/30/2016 11/23/2017 Inactive pantoprazole 40 mg tablet,delayed release RxNorm: 721614 Tablet(s) TAKE 1 TABLET DAILY 11/30/2016 11/23/2017 Inactive paroxetine 20 mg tablet RxNorm: 2488399 Tablet(s) TAKE ONE-HALF TABLET BY MOUTH EVERY DAY 11/25/2016 05/02/2017 Inactive paroxetine 20 mg tablet RxNorm: 4052420 Tablet(s) TAKE ONE-HALF TABLET BY MOUTH EVERY DAY 11/17/2016 11/24/2016 Inactive Levaquin 500 mg tablet RxNorm: 514947 1 Tablet(s) PO daily 11/24/2016 Inactive pantoprazole 40 mg tablet,delayed release RxNorm: 134841 TAKE 1 TABLET DAILY 08/22/2016 11/29/2016 Inactive gemfibrozil 600 mg tablet RxNorm: 456028 1 TABLET(S) PO TAKE ONE TABLET BY MOUTH TWICE DAILY 05/06/2016 01/30/2017 Inactive temazepam 7.5 mg capsule RxNorm: 852697 1 Capsule(s) PO HS PRN 03/24/2016 No Stop Date Active Singulair 10 mg tablet RxNorm: 921080 Tablet(s) TAKE 1 TABLET DAILY 03/07/2016 11/29/2016 Inactive Singulair 10 mg tablet RxNorm: 434977 Tablet(s) TAKE 1 TABLET DAILY 03/07/2016 03/06/2016 Inactive pantoprazole 40 mg tablet,delayed release RxNorm: 558514 TAKE 1 TABLET DAILY 02/15/2016 08/12/2016 Inactive Celebrex 200 mg capsule RxNorm: 317681 1 Capsule(s) PO BID TAKE 1 CAPSULE TWICE DAILY 01/25/2016 01/17/2017 Inactive gemfibrozil 600 mg tablet RxNorm: 677763 1 TABLET(S) PO TAKE ONE TABLET BY MOUTH TWICE DAILY 11/10/2015 05/05/2016 Inactive Patient requests 90 days supply Levaquin 500 mg tablet RxNorm: 043485 1 Tablet(s) PO daily 10/08/2015 Inactive albuterol sulfate 1.25 mg/3 mL solution for nebulization RxNorm: 994227 3 Milliliter(s) INH PRN as needed dyspnea 09/25/2015 06/06/2017 Inactive Levaquin 500 mg tablet RxNorm: 672100 1 Tablet(s) PO daily 06/201509/02/2015 Inactive albuterol sulfate HFA 90 mcg/actuation aerosol inhaler RxNorm: 4112225 1-2 Puff(s ) INH Q4 PRN as needed 08/24/20152016 Inactive sample and rX provided albuterol sulfate HFA 90 mcg/actuation aerosol inhaler RxNorm: 5309608 1-2 Puff(s ) INH Q4 PRN as needed 08/24/20152014 Inactive sample and rX provided paroxetine 20 mg tablet RxNorm: 5620864 Tablet(s) TAKE ONE-HALF TABLET BY MOUTH EVERY DAY 08/21/2015 03/17/2016 Inactive pantoprazole 40 mg tablet,delayed release RxNorm: 498002 1 Tablet(s) PO daily 07/27/2015 07/26/2015 Inactive pantoprazole 40 mg tablet,delayed release RxNorm: 851053 1 Tablet(s) PO daily 07/27/2015 01/22/2016 Inactive gemfibrozil 600 mg tablet RxNorm: 157308 1 TABLET(S) PO TAKE ONE TABLET BY MOUTH TWICE DAILY 07/10/2015 11/09/2015 Inactive nystatin (bulk) 100 million unit powder RxNorm: 1 APPLICATION TOP TID 06/25/2015 07/15/2015 Inactive Kenalog 40 mg/mL suspension for injection RxNorm: 0460806 Milliliter(s) Inj 05/29/2015 05/29/2015 Inactive Keflex 500 mg capsule RxNorm: 404856 1 Capsule(s) PO TID 201406/07/2015 Inactive nystatin (bulk) 100 million unit powder RxNorm: 1 Application TOP TID 05/29/2015 06/18/2015 Inactive ceftriaxone 500 mg solution for injection RxNorm: 7951197 Inj 05/29/2015 05/29/2015 Inactive Fioricet 50 mg-325 mg-40 mg tablet RxNorm: 478624 1 Tablet(s) PO Q6 PRN as needed 04/20/2015 07/18/2015 Inactive Bactroban 2 % topical ointment RxNorm: 520484 1 TOP BID 2014 No Stop Date Active Align 4 mg capsule RxNorm: 748698 1 Capsule(s) PO daily 03/1912/28/2016 Inactive Singulair 10 mg tablet RxNorm: 293588 TAKE 1 TABLET DAILY 03/0202/24/2016 Inactive Bactroban 2 % topical ointment RxNorm: 141247 1 APPLICATION TOP BID 12/02/2014 12/11/2014 Inactive right nare ceftriaxone 500 mg solution for injection RxNorm: 829056 Inj 10/15/2014 Inactive Keflex 500 mg capsule RxNorm: 861724 1 Capsule(s) PO BID 201310/28/2014 Inactive Kenalog 40 mg/mL suspension for injection RxNorm: 2438363 Milliliter(s) Inj 10/15/2014 10/15/2014 Inactive prednisone 20 mg tablet RxNorm: 281549 1 Tablet(s) PO daily 10/24/2014 Inactive Tudorza Pressair 400 mcg/actuation breath activated RxNorm: 5397391 1 Puff(s) INH BID 10/15/2014 11/13/2014 Inactive gemfibrozil 600 mg tablet RxNorm: 170182 1 Tablet(s) PO TAKE ONE TABLET BY MOUTH TWICE DAILY 09/29/2014 06/25/2015 Inactive Celebrex 200 mg capsule RxNorm: 295055 1 Capsule(s) PO BID TAKE 1 CAPSULE TWICE DAILY 07/31/2014 07/25/2015 Inactive paroxetine 20 mg tablet RxNorm: 600532 TAKE ONE-HALF TABLET BY MOUTH EVERY DAY 07/15/2014 02/09/2015 Inactive Bactroban 2 % topical ointment RxNorm: 778339 1 Application TOP BID 04/10/2014 04/14/2014 Inactive right nare Singulair 10 mg tablet RxNorm: 447286 1 Tablet(s) PO daily TAKE 1 TABLET DAILY 02/27/2014 02/21/2015 Inactive Celebrex 200 mg capsule RxNorm: 176053 1 Capsule(s) PO BID TAKE 1 CAPSULE TWICE DAILY 02/27/2014 07/30/2014 Inactive ciprofloxacin 500 mg tablet RxNorm: 486914 1 Tablet(s) PO BID 02/17/2014 02/26/2014 Inactive prednisone 20 mg tablet RxNorm: 304486 1 Tablet(s) PO daily 02/201402/21/2014 Inactive Fioricet 50 mg-325 mg-40 mg tablet RxNorm: 914445 1 Tablet(s) PO Q6 PRN 02/17/2014 05/16/2014 Inactive Kenalog 40 mg/mL suspension for injection RxNorm: 4286624 Milliliter(s) Inj 02/17/2014 02/17/2014 Inactive Bactrim 400 mg-80 mg tablet RxNorm: 772737 1 Tablet(s) PO BID 12/25/2013 12/24/2013 Inactive Omnicef 300 mg capsule RxNorm: 478621 1 Capsule(s) PO BID 12/2501/03/2014 Inactive please dc the bactrim order. pt states she is allergic. Bactrim 400 mg-80 mg tablet RxNorm: 958775 1 Tablet(s) PO BID 12/25/2013 12/25/2013 Inactive gemfibrozil 600 mg tablet RxNorm: 788058 Tablet(s) PO TAKE ONE TABLET BY MOUTH TWICE DAILY 12/12/2013 09/28/2014 Inactive Rocephin 500 mg solution for injection RxNorm: 789465 Inj 12/0512/05/2013 Inactive Bactroban 2 % topical ointment RxNorm: 456000 1 Application TOP BID right nare 12/05/2013 12/11/2013 Inactive Keflex 500 mg capsule RxNorm: 824261 1 Capsule(s) PO BID 201312/11/2013 Inactive paroxetine 20 mg tablet RxNorm: 632340 Tablet(s) PO TAKE ONE-HALF TABLET BY MOUTH EVERY DAY 07/15/2013 07/14/2014 Inactive Influenza Virus Vaccine 0.5 mL RxNorm: IM 07/09/2013 07/09/2013 Inactive Singulair 10 mg tablet RxNorm: 279646 Tablet(s) PO TAKE 1 TABLET DAILY 05/30/2013 02/26/2014 Inactive Celebrex 200 mg capsule RxNorm: 804015 Capsule(s) PO TAKE 1 CAPSULE TWICE DAILY 04/13/2013 02/26/2014 Inactive Singulair 10 mg tablet RxNorm: 788742 1 Tablet(s) PO daily 05/29/2013 Inactive gemfibrozil 600 mg tablet RxNorm: 485887 Tablet(s) PO TAKE ONE TABLET BY MOUTH TWICE DAILY 11/28/2012 12/11/2013 Inactive Rocephin 500 mg Solution for Injection RxNorm: 889334 1 Milliliter(s) Inj 10/23/2012 10/23/2012 Inactive paroxetine 20 mg tablet RxNorm: 301423 1/2 Tablet(s) PO daily 07/13/2012 07/14/2013 Inactive TAKE ONE-HALF TABLET BY MOUTH EVERY DAY Fioricet 50 mg-325 mg-40 mg tablet RxNorm: 772824 1 Tablet(s) PO Q6 PRN 04/17/2012 07/15/2012 Inactive gemfibrozil 600 mg tablet RxNorm: 059085 Tablet(s) PO 201111/27/2012 Inactive TAKE ONE TABLET BY MOUTH TWICE DAILY gemfibrozil 600 mg Tab RxNorm: 192256 1 Tablet(s) PO BID 201111/16/2011 Inactive MIDRIN 325 mg-65 mg-100 mg Cap RxNorm: 243354 1 Capsule(s) PO Q4-6H 09/15/2011 04/17/2012 Inactive max 8 tabs/24 hours Influenza Virus Vaccine 0.5 mL RxNorm: IM 07/05/2011 07/05/2011 Inactive Pulmicort Flexhaler 180 mcg/Inhalation Breath Activated RxNorm: 9956148 1 Puff(s) INH daily 06/27/2011 07/26/2011 Inactive Singulair 10 mg tablet RxNorm: 438221 1 Tablet(s) PO daily 09/201107/26/2011 Inactive Celebrex 200 mg capsule RxNorm: 335169 1 Capsule(s) PO BID 09/201104/12/2013 Inactive paroxetine 20 mg tablet RxNorm: 073589 1/2 Tablet(s) PO daily 06/27/2011 07/13/2012 Inactive gemfibrozil 600 mg Tab RxNorm: 428387 1 Tablet(s) PO BID 201011/15/2011 Inactive requests 90 day supply-refilled but needs labs amaury. vitamin B6-vitamin E-magnesium Oral RxNorm: Oral No Start Date Active Advil Oral RxNorm: Oral No Start Date Active ranitidine 150 mg tablet RxNorm: 371549 1 Tablet(s) PO daily No Start Date Active Claritin 10 mg tablet RxNorm: 979509 1 Tablet(s) PO daily No Start Date Active Flexeril 5 mg Tab RxNorm: 917191 1/2-2 Tablet(s) PO PRN 1/2-1 po q 8 hours prn back pain or muscle spasms No Start Date Active Dulera 200 mcg-5 mcg/actuation HFA aerosol inhaler RxNorm: 0476429 1 INH BID No Start Date Active folic acid Oral RxNorm : Oral No Start Date Active vitamin [id number] B1 Oral RxNorm: Oral No Start Date Active chlordiazepoxide-clidinium 5 mg-2.5 mg Cap RxNorm: 285870 1 Capsule(s) PO PRN For IBS No Start Date Active Singulair 10 mg Tab RxNorm: 617622 1 Tablet(s) PO daily No Start Date 06/26/2011 Inactive Omnicef 300 mg capsule RxNorm: 386318 1 Capsule(s) PO BID No Start Date 12/24/2013 Inactive albuterol sulfate HFA 90 mcg/Actuation Aerosol Inhaler RxNorm: 7807838 1-2 Puff(s ) INH Q4 PRN No Start Date 08/23/2015 Inactive sample and rX provided aspirin 81 mg Tab, Delayed Release RxNorm: 278840 1 Tablet(s) PO BID No Start Date 12/28/2016 Inactive Tudorza Pressair 400 mcg/actuation Breath Activated RxNorm: 1853312 1 Puff(s) INH BID No Start Date 10/14/2014 Inactive niacin ER 500 mg Tab RxNorm: 893351 1 Tablet(s) PO QHS No Start Date 02/27/2013 Inactive Celebrex 200 mg Cap RxNorm: 535827 1 Capsule(s) PO BID No Start Date 06/26/2011 Inactive loratadine 10 mg Tab RxNorm: 6559698 1 Tablet(s) PO daily No Start Date 02/27/2013 Inactive Nasonex 50 mcg/Actuation [place] RxNorm: 019061 2 [place] NASAL BID No Start Date 06/26/2011 Inactive Zithromax Z-Marty 250 mg Tab RxNorm: 711816 Tablet(s) PO No Start Date 07/11/2011 Inactive 2 tabs today, then tabs 2-5 daily Zithromax Z-Marty 250 mg tablet RxNorm: 738492 Tablet(s) PO UD No Start Date 04/21/2013 Inactive Tessalon Perles 100 mg Cap RxNorm: 340986 1 Capsule(s) PO PRN No Start Date 07/11/2011 Inactive albuterol sulfate HFA 90 mcg/Actuation Aerosol Inhaler RxNorm: 622363 Inhalation No Start Date 06/27/2011 Inactive Nasacort AQ 55 mcg Nasal [place] Aerosol RxNorm: 8398527 1 [place] NASAL PRN No Start Date 12/28/2016 Inactive gemfibrozil 600 mg Tab RxNorm: 515531 1 Tablet(s) PO BID No Start Date 06/26/2011 Inactive Pulmicort Flexhaler 180 mcg/Inhalation Breath Activated RxNorm: 7623813 1 INH daily No Start Date 06/26/2011 Inactive paroxetine 20 mg Tab RxNorm: 762293 1/2 Tablet(s) PO daily No Start Date 06/26/2011 Inactive MIDRIN 325 mg-65 mg-100 mg Cap RxNorm: 319197 1 Capsule(s) PO Q4-6H No Start Date 09/14/2011 Inactive max 8 tabs/24 hours beta carotene Oral RxNorm: Oral No Start Date 12/28/2016 Inactive Medication Administered Medication Codes Instructions Start Date Status Kenalog 40 mg/mL suspension for injection RxNorm: 8290531 1Milliliter 02/02/2018 No longer Active Kenalog 40 mg/mL suspension for injection RxNorm: 4521521 Milliliter 08/21/2017 No longer Active Kenalog 40 mg/mL suspension for injection RxNorm: 6694251 Milliliter 06/30/2017 No longer Active Kenalog 40 mg/mL suspension for injection RxNorm: 9113852 Milliliter 05/09/2017 No longer Active Kenalog 40 mg/mL suspension for injection RxNorm: 8136448 1.5Milliliter 01/30/2017 No longer Active Kenalog 40 mg/mL suspension for injection RxNorm: 8188502 Milliliter 05/29/2015 No longer Active ceftriaxone 500 mg solution for injection RxNorm: 4410438 05/29/2015 No longer Active Kenalog 40 mg/mL suspension for injection RxNorm: 7126858 Milliliter 10/15/2014 No longer Active ceftriaxone 500 mg solution for injection RxNorm: 889893 10/15/2014 No longer Active Kenalog 40 mg/mL suspension for injection RxNorm: 6650254 Milliliter 02/17/2014 No longer Active Rocephin 500 mg solution for injection RxNorm: 081249 12/05/2013 No longer Active Influenza Virus Vaccine 0.5 mL RxNorm: 07/09/2013 No longer Active Rocephin 500 mg Solution for Injection RxNorm: 662619 1Milliliter 10/23/2012 No longer Active Influenza Virus [...] Pelvic and perineal pain ICD-10: R10.2 ICD-9: SBN9583 06/12/2015 Encounter for screening for malignant neoplasm [...] NO Growth Day 2 06/19/2018 Parathyroid Hormone Eah706 PTH 81.40 pg/ml 05/10/2018 Comp Metabolic Dfq075 NA 142 mEq/L 05/10/2018 Comp Metabolic Xoa221 K 4.1 mEq/L 05/10/2018 Comp Metabolic Qxi739 CL 105 mEq/L 05/10/2018 Comp Metabolic Tee213 CO2 27.0 mEq/L 05/10/2018 Comp Metabolic Sxo363 ANION GAP 14 05/10/2018 Comp Metabolic Qdp582 GLUCOSE 95 mg/dL 05/10/2018 Comp Metabolic Qjf151 Creat 0.9 mg/dL 05/10/2018 Comp Metabolic Fua430 eGFR 65 ml/min/1.73m2 05/10/2018 Comp Metabolic Inj254 BUN 15 mg/dL 05/10/2018 Comp Metabolic Awd622 B/C Ratio 16.9 Ratio 05/10/2018 Comp Metabolic Dpc198 CALCIUM 9.8 mg/dL 05/10/2018 Comp Metabolic Owu241 ALK PHOS 77 U/L 05/10/2018 Comp Metabolic Pnw719 AST(SGOT) 24 U/L 05/10/2018 Comp Metabolic Xaa413 ALT(SGPT) 23 U/L 05/10/2018 Comp Metabolic Cfw667 BILI T 0.5 mg/dL 05/10/2018 Comp Metabolic Nyg679 ALBUMIN 4.8 g/dL 05/10/2018 Comp Metabolic Hmp323 TPRO 7.2 g/dL 05/10/2018 Comp Metabolic Qkc224 GLOB 2.5 g/dL 05/10/2018 Comp Metabolic Egz081 A/G Ratio 1.9 Ratio 05/10/2018 Comp Metabolic Dcc536 Osmo 284 mOsmo 05/10/2018 Vitamin D 25 Oh Blc9089 VITAMIN D, 25 HYDROXY 51.58 ng/mL Tsh [...] 94.6 fl 05/10/2018 Cbc With Differential Ord2 [place]% 9.6 % 05/10/2018 Cbc With Differential Ord2 [...] 3.52 K/ul 05/10/2018 Cbc With Differential Ord2 [place] ABS# 0.8 K/ul 05/10/2018 Cbc With Differential [...] 31.6 pg 01/09/2018 Cbc With Differential Ord2 [place]% 9.8 % 01/09/2018 Cbc With Differential Ord2 [...] 3.05 K/ul 01/09/2018 Cbc With Differential Ord2 [place] ABS# 0.7 K/ul 01/09/2018 Cbc With Differential Ord2 Eos ABS# 0.5 K/ul 01/09/2018 Cbc With Differential Ord2 Baso ABS# 0.0 K/ul 01/09/2018 Tsh Ord6 TSH (3rd IS) 3.12 uIU/mL 01/09/2018 Comp Metabolic Ysg044 NA 140 mEq/L 01/09/2018 Comp Metabolic Cnp148 K 4.0 mEq/L 01/09/2018 Comp Metabolic Ebf781 CL 105 mEq/L 01/09/2018 Comp Metabolic Pgh130 CO2 28.0 mEq/L 01/09/2018 Comp Metabolic Muk988 ANION GAP 11 01/09/2018 Comp Metabolic Aqe250 GLUCOSE 98 mg/dL 01/09/2018 Comp Metabolic Cbm303 Creat 0.7 mg/dL 01/09/2018 Comp Metabolic Zwc272 eGFR 87 ml/min/1.73m2 01/09/2018 Comp Metabolic Lut492 BUN 14 mg/dL 01/09/2018 Comp Metabolic Qfe592 B/C Ratio 20.3 Ratio 01/09/2018 Comp Metabolic Vvo630 CALCIUM 9.8 mg/dL 01/09/2018 Comp Metabolic Bnq663 ALK PHOS 113 U/L 01/09/2018 Comp Metabolic Chz234 AST(SGOT) 22 U/L 01/09/2018 Comp Metabolic Fov865 ALT(SGPT) 22 U/L 01/09/2018 Comp Metabolic Tmp653 BILI T 0.5 mg/dL 01/09/2018 Comp Metabolic Wdt596 ALBUMIN 4.6 g/dL 01/09/2018 Comp Metabolic Bnk850 TPRO 7.0 g/dL 01/09/2018 Comp Metabolic Hfz714 GLOB 2.4 g/dL 01/09/2018 Comp Metabolic Koo922 A/G Ratio 2.0 Ratio 01/09/2018 Comp Metabolic Lfv845 Osmo 280 mOsmo 01/09/2018 Lipid Ord30 CHOL 163 mg/dL 12/27/2016 Lipid Ord30 HDL 63.0 mg/dl 12/27/2016 Lipid Ord30 TRIG 62 mg/dL 12/27/2016 Lipid Ord30 LDL 88 mg/dL 12/27/2016 Lipid Ord30 C/HDL 2.6 Ratio 12/27/2016 Tsh Ord6 hTSH II 2.47 uIU/mL 12/27/2016 Comp Metabolic Vzj356 NA 140 mEq/L 12/27/2016 Comp Metabolic Ojz356 K 4.0 mEq/L 12/27/2016 Comp Metabolic Jba551 CL 105 mEq/L 12/27/2016 Comp Metabolic Zxy623 CO2 28.0 mEq/L 12/27/2016 Comp Metabolic Agm740 ANION GAP 11 12/27/2016 Comp Metabolic Gma925 GLUCOSE 102 mg/dL 12/27/2016 Comp Metabolic Vnl816 Creat 0.7 mg/dL 12/27/2016 Comp Metabolic Iwr554 eGFR 81 ml/min/1.73m2 12/27/2016 Comp Metabolic Cpb953 BUN 15 mg/dL 12/27/2016 Comp Metabolic Bsv500 B/C Ratio 20.3 Ratio 12/27/2016 Comp Metabolic Oya753 CALCIUM 10.0 mg/dL 12/27/2016 Comp Metabolic Dxy938 ALK PHOS 110 U/L 12/27/2016 Comp Metabolic Gzo104 AST(SGOT) 20 U/L 12/27/2016 Comp Metabolic Dcz472 ALT(SGPT) 22 U/L 12/27/2016 Comp Metabolic Efg607 BILI T 0.5 mg/dL 12/27/2016 Comp Metabolic Sgb656 ALBUMIN 4.7 g/dL 12/27/2016 Comp Metabolic Wpg717 TPRO 7.2 g/dL 12/27/2016 Comp Metabolic Rsg993 GLOB 2.5 g/dL 12/27/2016 Comp Metabolic Loh225 A/G Ratio 1.9 Ratio 12/27/2016 Comp Metabolic Chd900 Osmo 280 mOsmo 12/27/2016 Cbc With Differential Ord2 WBC 7.34 K/ul 12/27/2016 Cbc With Differential Ord2 RBC 4.32 M/ul 12/27/2016 Cbc With Differential Ord2 HGB 13.8 g/dl 12/27/2016 Cbc With Differential Ord2 Neut% 30.6 % 12/27/2016 Cbc With Differential Ord2 HCT 40.3 % 12/27/2016 Cbc With Differential Ord2 Lymph% 49.0 % 12/27/2016 Cbc With Differential Ord2 MCV 93.3 fl 12/27/2016 Cbc With Differential Ord2 MCH 31.9 pg 12/27/2016 Cbc With Differential Ord2 [place]% 8.6 % 12/27/2016 Cbc With Differential Ord2 [...] 3.60 K/ul 12/27/2016 Cbc With Differential Ord2 [place] ABS# 0.6 K/ul 12/27/2016 Cbc With Differential [...] 43.3 % 06/13/2016 Cbc With Differential Ord2 [place]% 8.4 % 06/13/2016 Cbc With Differential Ord2 [...] 3.26 K/ul 06/13/2016 Cbc With Differential Ord2 [place] ABS# 0.6 K/ul 06/13/2016 Cbc With Differential Ord2 Eos ABS# 1.0 K/ul 06/13/2016 Cbc With Differential Ord2 Baso ABS# 0.0 K/ul 06/13/2016 Comp Metabolic [id number] NA 141 mEq/L 03/25/2016 Comp Metabolic Ytr190 K 4.0 mEq/L 03/25/2016 Comp Metabolic Epu421 CL 103 mEq/L 03/25/2016 Comp Metabolic Tbl229 CO2 28.0 mEq/L 03/25/2016 Comp Metabolic Vck196 ANION GAP 14 03/25/2016 Comp Metabolic Ybq838 GLUCOSE 91 mg/dL 03/25/2016 Comp Metabolic Wvf159 Creat 0.8 mg/dL 03/25/2016 Comp Metabolic Vif323 eGFR 70 ml/min/1.73m2 03/25/2016 Comp Metabolic Izz106 BUN 16 mg/dL 03/25/2016 Comp Metabolic Asz608 B/C Ratio 19.0 Ratio 03/25/2016 Comp Metabolic Btd624 CALCIUM 9.8 mg/dL 03/25/2016 Comp Metabolic Klz713 ALK PHOS 111 U/L 03/25/2016 Comp Metabolic Rui817 AST(SGOT) 19 U/L 03/25/2016 Comp Metabolic Tyd688 ALT(SGPT) 19 U/L 03/25/2016 Comp Metabolic Qyy919 BILI T 0.6 mg/dL 03/25/2016 Comp Metabolic Woo180 ALBUMIN 4.6 g/dL 03/25/2016 Comp Metabolic Ivg647 TPRO 7.4 g/dL 03/25/2016 Comp Metabolic Jbo703 GLOB 2.8 g/dL 03/25/2016 Comp Metabolic Gdn152 A/G Ratio 1.7 Ratio 03/25/2016 Comp Metabolic Qqt231 Osmo 282 mOsmo 03/25/2016 Tsh Ord6 hTSH [...] 94.0 fl 03/25/2016 Cbc With Differential Ord2 [place]% 9.4 % 03/25/2016 Cbc With Differential Ord2 [...] 3.20 K/ul 03/25/2016 Cbc With Differential Ord2 [place] ABS# 0.8 K/ul 03/25/2016 Cbc With Differential Ord2 Eos ABS# 0.8 K/ul 03/25/2016 Cbc With Differential Ord2 Baso ABS# 0.0 K/ul 03/25/2016 GFR CALC 8000760 GFR AA >60 ML/MIN 03/14/2012 GFR CALC 5614737 GFR NON-AA >60 ML/MIN 03/14/2012 TSH 1927548 TSH 2.609 uIU/ML 03/14/2012 LIPID GRP HDL TEST 63 MG/DL 03/14/2012 LIPID GRP TRIG 68 MG/DL 03/14/2012 LIPID GRP TEST LDL 88 MG/DL 03/14/2012 LIPID GRP CHOL 165 MG/DL 03/14/2012 LIPID GRP 9337369 RCHOL/HDL 2.62 RATIO 03/14/2012 CHEM 14 9147660 AST 24 U/L 03/14/2012 CHEM 14 7522829 ALT 26 IU/L 03/14/2012 CHEM 14 3527959 BUN 17 MG/DL 03/14/2012 CHEM 14 3314361 ALBUMIN 4.8 GM/DL 03/14/2012 CHEM 14 6975107 CHLORIDE 106 MMOL/L 03/14/2012 CHEM 14 6939315 BILI TOT 0.6 MG/DL 03/14/2012 CHEM 14 9622917 ALK PHOS 115 U/L 03/14/2012 CHEM 14 3098089 SODIUM 141 MMOL/L 03/14/2012 CHEM 14 2535614 CREATININE 0.78 MG/DL 03/14/2012 CHEM 14 6991272 CALCIUM 9.9 MG/DL 03/14/2012 CHEM 14 4305086 POTASSIUM 4.2 MMOL/L 03/14/2012 CHEM 14 4112758 PROT TOT 7.4 GM/DL 03/14/2012 CHEM 14 6611006 GLUCOSE 91 MG/DL 03/14/2012 CHEM 14 9848598 BICARB 27 MMOL/L 03/14/2012 CHEM 14 2549268 ANION GAP 8 MEQ/L 03/14/2012 CBC 8927295 WBC 5.9 10e9/L 03/14/2012 CBC 0566140 RBC 4.62 10e12/L 03/14/2012 CBC 0476504 HGB 14.5 g/dL 03/14/2012 CBC 6270693 HCT DET 42.4 % 03/14/2012 CBC 7604983 MCV 91.8 fL 03/14/2012 CBC 6289853 MCH 31.4 pg 03/14/2012 CBC 1133727 MCHC 34.2 g/dL 03/14/2012 CBC 1835575 PLT 370 10e9/L 03/14/2012 CBC 6100441 MPV 10.2 fL 03/14/2012 CBC 1096097 NANO % 36.6 % 03/14/2012 CBC 3002663 LY % 47.6 % 03/14/2012 CBC 1234593 MON % 10.0 % 03/14/2012 CBC 3330175 EOS % 5.6 % 03/14/2012 CBC 4381049 BASO % 0.2 % 03/14/2012 CBC 2798874 RDW 12.3 % 03/14/2012 CBC 9767614 ABS NANO 2.16 10e9/L 03/14/2012 CBC 4032398 ABS LYMPH 2.81 10e9/L 03/14/2012 CBC 1820835 ABS MONO 0.59 10e9/L 03/14/2012 CBC 1536131 ABS EOS 0.33 10e9/L 03/14/2012 CBC 2404923 ABS BASO 0.01 10e9/L 03/14/2012 CBC 4232647 RDW-SD 40.4 fL 03/14/2012 Review of Systems [...] affect 09/25/2013 None Full Exam - General 1995 Constitutional general appearance Overall: well developed 07/09/2013 None Full Exam - General 1994 Constitutional general appearance Overall: in no acute distress 07/09/2013 None Full Exam - General 1995 Constitutional general appearance Overall: well nourished 07/09/2013 None Full Exam - General 1994 Eyes pupils and irises Overall: pupils equal, round, reactive to light and accomodation 07/09/2013 None Full Exam - General 1995 Ears/Nose/Throat oral cavity/pharynx/larynx Overall: oral mucosa clear 07/09/2013 None Full Exam - General 1995 Ears/Nose/Throat [...] developed 03/22/2013 None Full Exam - General 1995 Constitutional general appearance Overall: in no acute distress 03/22/2013 None Full Exam - General 1995 Constitutional general appearance Overall: well nourished 03/22/2013 [...] 1995 Ears/Nose/Throat oral cavity/pharynx/larynx Overall: no masses 03/22/2013 [...] accomodation 02/28/2013 None Full Exam - General 1995 Ears/Nose/Throat oral cavity/pharynx/larynx Overall: oral mucosa clear 02/28/2013 None Full Exam - General 1994 Ears/Nose/Throat oral cavity/pharynx/larynx Overall: oropharyngeal mucosa clear 02/28/2013 None Full Exam - General 1995 Ears/Nose/Throat oral cavity/pharynx/larynx Overall: no masses 02/28/2013 [...] Formatting Model/CDA Sections, Assigned to/Juana Ji CPT-4: [id number] 06/28/2018 DRAIN/INJECT JOINT/BURSA CPT-4: 17693 01/29/2018 TRIAMCINOLONE ACET INJ NOS CPT-4: J3301 01/29/2018 PPPS, SUBSEQ VISIT CPT -4: G0439 01/08/2018 THER/PROPH/DIAG INJ SC/IM CPT-4: 23910 08/21/2017 TRIAMCINOLONE ACET INJ NOS CPT-4: J3301 08/21/2017 ADMIN INFLUENZA VIRUS VAC CPT-4: G0008 07/18/2017 FLU VACC PRSV FREE INC ANTIG CPT-4: 23661 07/18/2017 TRIAMCINOLONE ACET INJ NOS CPT-4: J3301 06/30/2017 TRIAMCINOLONE ACET INJ NOS CPT-4: J3301 05/09/2017 THER/PROPH/DIAG INJ SC/IM CPT-4: 77578 05/09/2017 TRIAMCINOLONE ACET INJ NOS CPT-4: J3301 01/30/2017 PPPS, SUBSEQ VISIT CPT -4: G0439 01/02/2017 ADMIN INFLUENZA VIRUS VAC CPT-4: G0008 07/13/2016 FLU VACC PRSV FREE INC ANTIG CPT-4: 23529 07/13/2016 ADMIN INFLUENZA VIRUS VAC CPT-4: G0008 07/10/2015 FLU VACC 4 KARI 3 YRS PLUS IM Formatting Model/CDA Sections, Assigned to/Juana Ji CT: [id number] CPT-4: 46168Jnclgya 07/10/2015 TRIAMCINOLONE ACET INJ NOS CPT-4: J3301 05/29/2015 ROCEPHIN, PER 250 MG CPT-4: J0696 05/29/2015 THER/PROPH/DIAG INJ SC/IM CPT-4: 92650 10/15/2014 TRIAMCINOLONE ACET INJ NOS CPT-4: J3301 10/15/2014 ROCEPHIN, PER 250 MG CPT-4: J0696 10/15/2014 THER/PROPH/DIAG INJ SC/IM CPT-4: 34068 02/17/2014 TRIAMCINOLONE ACET INJ NOS CPT-4: J3301 02/17/2014 ROCEPHIN, PER 250 MG CPT-4: J0696 12/05/2013 ADMIN INFLUENZA VIRUS VAC CPT-4: G0008 07/09/2013 FLULAVAL VACC, 3 YRS & >, IM CPT-4: Q2036 07/09/2013 ROCEPHIN, PER 250 MG CPT-4: J0696 10/23/2012 PRESCRIP TRANSMIT VIA ERX SY CPT-4: G8553 10/23/2012 ROUTINE VENIPUNCTURE CPT-4: 04479 03/14/2012 ADMIN INFLUENZA VIRUS VAC CPT-4: G0008 07/05/2011 FLULAVAL VACC, 3 YRS & >, IM CPT-4: Q2036 07/05/2011 ROUTINE VENIPUNCTURE CPT-4: 31866 06/28/2011 PRESCRIP TRANSMIT VIA ERX SY CPT-4: G8553 06/27/2011 Vital Signs Date Vital 11/07/2018 Blood Pressure 1: 140/70 Code : 8480-6 BMI: 31.1 Code : 67206-0 Heart Rate 1 : 91 bpm Height: 5'2" SpO2: 99% Weight: 170 lbs 09/04/2018 Blood Pressure 1: 140/80 Code : 8480-6 BMI: 31.3 Code : 22937-4 Heart Rate 1 : 82 bpm Height: 5'2" SpO2: 95% Weight: 171 lbs 07/10/2018 Blood Pressure 1: 144/46 Code : 8480-6 BMI: 31.5 Code : 88964-6 Heart Rate 1 : 86 bpm Height: 5'2" SpO2: 97% Weight: 172 lbs 06/19/2018 Blood Pressure 1: 150/80 Code : 8480-6 BMI: 31.5 Code : 38520-7 Heart Rate 1 : 94 bpm Height: 5'2" SpO2: 96% Weight: 172 lbs 6 oz 01/29/2018 Blood Pressure 1: 148/66 Code : 8480-6 BMI: 31.8 Code : 70195-4 Heart Rate 1 : 80 bpm Height: 5'2" SpO2: 96% Weight: 174 lbs 01/08/2018 Blood Pressure 1: 122/72 Code : 8480-6 BMI: 32.0 Code : 49574-9 Heart Rate 1 : 79 bpm Height: 5'2" SpO2: 99% Weight: 175 lbs 08/21/2017 Blood Pressure 1: 162/78 Code : 8480-6 BMI: 32.2 Code : 62698-2 Heart Rate 1 : 82 bpm Height: 5'2" SpO2: 97% Temperature: 36.6 (C) / 97.8 (F) Weight: 176 lbs 07/18/2017 Blood Pressure 1: 136/70 Code : 8480-6 BMI: 31.9 Code : 21549-0 Heart Rate 1 : 81 bpm Height: 5'2" SpO2: 96% Weight: 174 lbs 8 oz 06/30/2017 Blood Pressure 1: 128/74 Code : 8480-6 BMI: 31.8 Code : 46377-7 Heart Rate 1 : 89 bpm Height: 5'2" SpO2: 97% Weight: 174 lbs 05/08/2017 Blood Pressure 1: 148/82 Code : 8480-6 BMI: 30.9 Code : 66706-5 Heart Rate 1 : 79 bpm Height: 5'2" SpO2: 95% Weight: 169 lbs 02/14/2017 Blood Pressure 1: 126/72 Code : 8480-6 Heart Rate 1: 76 bpm Height: 5'2" SpO2: 97% Weight: 01/31/2017 Blood Pressure 1: 154/80 Code : 8480-6 BMI: 32.0 Code : 57055-4 Heart Rate 1 : 81 bpm Height: 5'2" SpO2: 97% Weight: 175 lbs 01/30/2017 Blood Pressure 1: 136/78 Code : 8480-6 Heart Rate 1: 92 bpm Height: 5'2" SpO2: 96% Temperature: 37.4 (C) / 99.3 (F) Weight: 01/02/2017 Blood Pressure 1: 146/66 Code : 8480-6 BMI: 31.8 Code : 95898-3 Heart Rate 1 : 81 bpm Height: 5'2" SpO2: 98% Weight: 174 lbs 12/29/2016 Blood Pressure 1: 140/78 Code : 8480-6 BMI: 31.8 Code : 49916-6 Heart Rate 1 : 88 bpm Height: 5'2" SpO2: 97% Weight: 174 lbs 03/24/2016 Blood Pressure 1: 132/88 Code : 8480-6 BMI: 31.6 Code : 36408-5 Heart Rate 1 : 91 bpm Height: 5'2" SpO2: 99% Weight: 173 lbs 09/25/2015 Blood Pressure 1: 112/60 Code : 8480-6 BMI: 31.3 Code : 13424-3 Heart Rate 1 : 85 bpm Height: 5'2" SpO2: 97% Weight: 171 lbs 08/24/2015 Blood Pressure 1: 142/60 Code : 8480-6 BMI: 30.9 Code : 05998-7 Heart Rate 1 : 94 bpm Height: 5'2" SpO2: 97% Weight: 169 lbs 06/12/2015 Blood Pressure 1: 122/64 Code : 8480-6 BMI: 31.1 Code : 37150-8 Heart Rate 1 : 91 bpm Height: 5'2" SpO2: 97% Weight: 170 lbs 05/29/2015 Blood Pressure 1: 150/78 Code : 8480-6 BMI: 31.6 Code : 52589-6 Heart Rate 1 : 79 bpm Height: 5'2" SpO2: 93% Weight: 173 lbs 03/26/2015 Blood Pressure 1: 124/82 Code : 8480-6 BMI: 31.8 Code : 20109-1 Heart Rate 1 : 80 bpm Height: 5'2" Respiratory Rate: 20 bpm Weight: 174 lbs 03/17/2015 Blood Pressure 1: 128/78 Code : 8480-6 BMI: 31.8 Code : 60704-5 Heart Rate 1 : 84 bpm Height: 5'2" Respiratory Rate: 20 bpm Weight: 174 lbs 10/15/2014 Blood Pressure 1: 130/64 Code : 8480-6 BMI: 32.6 Code : 39090-2 Heart Rate 1 : 80 bpm Height: 5'2" Weight: 178 lbs 04/10/2014 Blood Pressure 1: 128/70 Code : 8480-6 BMI: 31.6 Code : 90894-0 Heart Rate 1 : 80 bpm Height: 5'2" Weight: 173 lbs 02/17/2014 Blood Pressure 1: 108/58 Code : 8480-6 BMI: 32.0 Code : 46610-3 Heart Rate 1 : 80 bpm Height: 5'2" Temperature: 37.4 (C) / 99.3 (F) Weight: 175 lbs 12/05/2013 Blood Pressure 1: 144/80 Code : 8480-6 Heart Rate 1: 72 bpm SpO2: 98% Temperature: 36.9 (C) / 98.4 (F) Weight: 177 lbs 09/25/2013 Blood Pressure 1: 136/82 Code : 8480-6 BMI: 32.7 Code : 62323-1 Heart Rate 1 : 84 bpm Height: 5'2" Weight: 179 lbs 07/09/2013 Blood Pressure 1: 144/70 Code : 8480-6 BMI: 32.0 Code : 30406-4 Heart Rate 1 : 76 bpm Height: 5'2" Weight: 175 lbs 2013 Blood Pressure 1: 128/72 Code : 8480-6 BMI: 31.8 Code : 51266-1 Heart Rate 1 : 68 bpm Height: 5'2" Weight: 174 lbs 03/22/2013 Blood Pressure 1: 128/68 Code : 8480-6 BMI: 31.8 Code : 94033-7 Heart Rate 1 : 68 bpm Height: 5'2" Weight: 174 lbs 02/28/2013 Blood Pressure 1: 128/72 Code : 8480-6 BMI: 31.5 Code : 94578-2 Heart Rate 1 : 80 bpm Height: 5'2" Weight: 172 lbs 10/23/2012 Blood Pressure 1: 124/78 Code : 8480-6 Heart Rate 1: 68 bpm Temperature: 36.8 (C) / 98.2 (F) Weight: 172 lbs 03/08/2012 Blood Pressure 1: 124/68 Code : 8480-6 Heart Rate 1: 80 bpm Weight: 171 lbs 09/28/2011 Blood Pressure 1: 112/58 Code : 8480-6 BMI: 31.6 Code : 00487-2 Heart Rate 1 : 76 bpm Height: 5'2" Respiratory Rate: 16 bpm Weight: 173 lbs 06/27/2011 Blood Pressure 1: 117/61 Code : 8480-6 BMI: 30.4 Code : 05141-1 Heart Rate 1 : 86 bpm Height: [...] 3 days per week 01/08/2018 works at [employer] Annual Medicare Wellness Exam Handling Stress often [...] None cough Pertinent Findings sputum production 01/31/2017 (carpenetr-green) cough Quality intermittent 01/31/2017 None cough Quality [...] 03/08/2012 Works 3 days per week at [employer], is retired osteoarthritis Frequency of Episodes unchanged [...] data Encounters Encounter Performer Location Codes Date ([id number]) 07701 EST. PATIENT, LEVEL III Diagnosis: Chronic obstructive pulmonary disease with (acute) exacerbation[ICD10 : J44.1] Diagnosis: Postherpetic trigeminal neuralgia[ICD10: B02.22] Deneen Rosenberg MD, [facility] CPT-4: 88053 11/07/2018 ([id number]) 97980 EST. PATIENT, LEVEL IV Diagnosis: Essential (primary) hypertension[ICD10: I10] Diagnosis: Chronic frontal sinusitis[ICD10: J32.1] Deneen Rosenberg MD, [facility] CPT-4: 68715 09/04/2018 ([id number]) 89430 EST. PATIENT, LEVEL III Diagnosis: Other retention of urine[ICD10: R33.8] Diagnosis: Mild intermittent asthma with (acute) exacerbation[ICD10: J45.21] Denene Rosenberg MD, [facility] CPT-4: 91664 07/10/2018 ([id number]) 61024 EST. PATIENT, LEVEL IV Diagnosis: Primary hyperparathyroidism[ICD10: E21.0] Diagnosis: Personal history of other diseases of the musculoskeletal system and connective tissue[ICD10: Z87.39] [facility] CPT-4: 03627 06/19/2018 [id number] EST. PATIENT, LEVEL III Diagnosis: Low back pain[ICD10: M54.5] Diagnosis: Sciatica, right side[ICD10: M54.31] Chastity Rosenberg MD, [facility] CPT-4: 38022 01/29/2018 64077 EST. PATIENT, LEVEL III Diagnosis: Mild intermittent asthma with (acute) exacerbation[ICD10: J45.21] Diagnosis: Cough[ICD10: R05] Diagnosis: Other allergic rhinitis[ICD10: J30.89] Chastity Rosenberg MD, [facility] CPT-4: 88604 08/21/2017 ([id number]) 98624 EST. PATIENT, LEVEL IV Diagnosis: Mild intermittent asthma with (acute) exacerbation[ICD10: J45.21] Diagnosis: Essential (primary) hypertension[ICD10: I10] Diagnosis: Encounter for immunization[ICD10: Z23] Diagnosis: Sciatica, right side[ICD10: M54.31] Diagnosis: Low back pain[ICD10: M54.5] Deneen Rosenberg MD, [facility] CPT- 4: 47376 07/18/2017 ([id number]) 96266 EST. PATIENT, LEVEL III Diagnosis: Cough[ICD10: R05] Diagnosis: Other allergic rhinitis[ICD10: J30.89] Lalitha Rosenberg MD, [facility] CPT-4: 80837 06/30/2017 [id number] EST. PATIENT, LEVEL III Diagnosis: Low back pain[ICD10: M54.5] Diagnosis: Dizziness and giddiness[ICD10: R42] Chastity Rosenberg MD, [facility] CPT-4: 09381 05/08/2017 ([id number]) 80239 EST. PATIENT, LEVEL III Diagnosis: Essential (primary) hypertension[ICD10: I10] Diagnosis: Low back pain[ICD10: M54.5] Diagnosis: Sciatica, right side[ICD10: M54.31] [facility] CPT-4: 96664 02/14/2017 ([id number]) 06511 EST. PATIENT, LEVEL III Diagnosis: Essential (primary) hypertension[ICD10: I10] Deneen Rosenberg MD, [facility] CPT-4: 40272 01/31/2017 ([id number]) 29549 EST. PATIENT, LEVEL III Diagnosis: Cough[ICD10: R05] Diagnosis: Acute recurrent maxillary sinusitis[ICD10: J01.01] Lalitha Rosenberg MD, [facility] CPT-4: 59884 01/30/2017 ([id number]) 37631 EST. PATIENT, LEVEL III Diagnosis: Essential (primary) hypertension[ICD10: I10] Diagnosis: Mild intermittent asthma with (acute) exacerbation[ICD10: J45.21] Diagnosis: Tinea corporis[ICD10: B35.4] Deneen Rosenberg MD, [facility] CPT- 4: 58672 12/29/2016 ([id number]) Miscellaneous no charge Diagnosis: Epistaxis[ICD10: R04.0] Chastity Rosenberg MD, [facility] CPT-4: 61041 04/01/2016 ([id number]) 86343 EST. PATIENT, LEVEL IV Diagnosis: Essential (primary) hypertension[ICD10: I10] Diagnosis: Mild intermittent asthma, uncomplicated[ICD10: J45.20] Diagnosis: Insomnia, unspecified[ICD10: G47.00] Lalitha Rosenberg MD, [facility] CPT-4: 58489 03/24/2016 96224 EST. PATIENT, LEVEL III Diagnosis: Mild intermittent asthma with (acute) exacerbation[ICD10: J45.21] Diagnosis: Epistaxis[ICD10: R04.0] Chastity Rosenberg MD, [facility] CPT-4: 52525 09/25/2015 ([id number]) 24529 EST. PATIENT, LEVEL III Diagnosis: Acute recurrent maxillary sinusitis[ICD10: J01.01] Diagnosis: Allergic rhinitis due to pollen[ICD10: J30.1] Lalitha Rosenberg MD, [facility] CPT-4: 67932 08/24/2015 ([id number]) 93204 EST. PATIENT, LEVEL IV Diagnosis: Well woman exam[ICD9: V70.0] Diagnosis: Encounter for screening for malignant neoplasm of vagina[ICD10: Z12.72] Diagnosis: Pelvic and perineal pain[ICD10: R10.2] Lalitha Rosenberg MD, [facility] CPT-4: 47539 06/12/2015 ([id number]) 46861 EST. PATIENT, LEVEL III Diagnosis: Tinea corporis[ICD9: 110.5] Diagnosis: ACUTE MAXILLARY SINUSITIS[ICD9: 461.0] Lalitha Rosenberg MD, [facility] CPT-4: 71477 05/29/2015 ([id number]) 27762 EST. PATIENT, LEVEL IV Diagnosis: Skin tag[ICD9: 701.9] Diagnosis: Seborrheic keratoses[ICD9: 702.19] Diagnosis: Comedone[ICD9: 706.1] Diagnosis: IMPACTED CERUMEN[ICD9: 380.4] Rosemarie Rosenberg MD, [facility] CPT-4 : 61957 03/26/2015 ([id number]) 62152 EST. PATIENT, LEVEL IV Diagnosis: ESSENTIAL HYPERTENSION[ICD9: 401.9] Diagnosis: HYPERLIPIDEMIA[ICD9: 272.4] Diagnosis: Fatigue[ICD9: 780.79] Diagnosis: INSECT BITE HIP/LEG[ICD9: 916.4] Rosemarie Rosenberg MD, [facility] CPT- 4: 80456 03/17/2015 ([id number]) 49544 EST. PATIENT, LEVEL IV Diagnosis: Acute bronchitis[ICD9: 466.0] Diagnosis: MALAISE AND FATIGUE[ICD9: 780.79] Diagnosis: COUGH[ICD9: 786.2] Diagnosis: CHRONIC OBSTRUCTIVE ASTHMA WITH EXACERBATION[ICD9: 493.22] Deneen Rosenberg MD , [facility] CPT-4: 52481 10/15/2014 ([id number]) 52834 EST. PATIENT, LEVEL III Diagnosis: Acute anterior epistaxis[ICD9: 784.7] Diagnosis: ESSENTIAL HYPERTENSION[ICD9: 401.9] Lalitha Rosenberg MD, [facility] CPT-4: 43480 04/10/2014 ([id number]) 76620 EST. PATIENT, LEVEL III Diagnosis: Acute bronchitis[ICD9: 466.0] Diagnosis: COUGH[ICD9: 786.2] Diagnosis: Nasal congestion[ICD9: 478.19] Deneen Rosenberg MD, [facility] CPT- 4: 50731 02/17/2014 ([id number]) 43948 EST. PATIENT, LEVEL III Diagnosis: ACUTE SINUSITIS[ICD9: 461.9] Lalitha Rosenberg MD, [facility] CPT-4: 52764 12/05/2013 ([id number]) 67904 EST. PATIENT, LEVEL IV Diagnosis: HYPERLIPIDEMIA[ICD9: 272.4] Diagnosis: CHRONIC OBSTRUCTIVE ASTHMA[ICD9: 493.20] Diagnosis: SLEEP APNEA NOS[ICD9: 780.57] Diagnosis: GENERAL OSTEOARTHROSIS-MULT[ICD9: 715.09] Deneen Rosenberg MD, [facility] CPT-4: 39677 09/25/2013 ([id number]) 72655 EST. PATIENT, LEVEL III Diagnosis: CHRONIC OBSTRUCTIVE ASTHMA[ICD9: 493.20] Deneen Rosenberg MD [facility] CPT-4: 26725 07/09/2013 ([id number]) Miscellaneous no charge Diagnosis: CHRONIC OBSTRUCTIVE ASTHMA[ICD9: 493.20] Deneen Rosenberg MD [facility] CPT-4: 18949 06/11/2013 ([id number]) 68885 EST. PATIENT, LEVEL IV Diagnosis: CHRONIC OBSTRUCTIVE ASTHMA[ICD9: 493.20] Diagnosis: Sleep apnea[ICD9: 780.57] Deneen Rosenberg MD [facility] CPT-4: 96795 2013 ([id number]) 65278 EST. PATIENT, LEVEL IV Diagnosis: CHRONIC OBSTRUCTIVE ASTHMA[ICD9: 493.20] Diagnosis: OSTEOARTH NOS-UNSPEC[ICD9: 715.90] Diagnosis: MALAISE AND FATIGUE[ICD9: 780.79] Deneen Rosenberg MD [facility] CPT-4: 45201 03/22/2013 ([id number]) 21579 EST. PATIENT, LEVEL IV Diagnosis: HYPERLIPIDEMIA[ICD9: 272.4] Diagnosis: OSTEOARTH NOS-UNSPEC[ICD9: 715.90] Diagnosis: MALAISE AND FATIGUE[ICD9: 780.79] Deneen Rosenberg MD, [facility] CPT-4: 82916 02/28/2013 ([id number]) 97915 EST. PATIENT, LEVEL III Diagnosis: ACUTE SINUSITIS[ICD9: 461.9] Diagnosis: COUGH[ICD9: 786.2] Lalitha Rosenberg MD, [facility] CPT-4: 36727 10/23/2012 ([id number]) 04946 EST. PATIENT, LEVEL IV Diagnosis: ESSENTIAL HYPERTENSION[SNOMED: 60061169] Diagnosis: HYPERLIPIDEMIA[ICD9: 272.4] Diagnosis: CHRONIC OBSTRUCTIVE ASTHMA[ICD9: 493.20] [facility] CPT-4: 18800 03/08/2012 ([id number]) 66318 EST. PATIENT, LEVEL IV Diagnosis: CHRONIC OBSTRUCTIVE ASTHMA[ICD9: 493.20] Diagnosis: Primary generalized (osteo)arthritis[ICD9: 715.09] Diagnosis: PAIN IN LIMB[ICD9: 729.5] [facility] CPT-4: 39307 09/28/2011 78779 EST. PATIENT, LEVEL IV Diagnosis: ACUTE SINUSITIS[ICD9: 461.9] Diagnosis: Asthma[ICD9: 493.90] Diagnosis: Osteoarthritis[ICD9: 715.90] Diagnosis: Hyperlipidemia[ICD9: 272.4] [facility] CPT-4: 92739 06/27/2011 Plan of Care Planned Activity Notes Codes Status Date Visit Plan: Trigeminal Neuralgia - due to shingles - rx for prednisone taper and valcyvlovir 1 gram bid. COPD - rx for albuterol and proair. 11/07/2018 Patient Education: Patient Medication Summary Completed [...] days. 09/04/2018 App[facility]ment[phone] (15 min) Moderate 09/04/2018 Patient Education: Patient Medication Summary Completed 09/04/2018 Patient Education: Hypertension Completed 09/04/2018 Visit Plan: Asthma - chronic problem for this patient. We have reviewed chronic treatment strategy, symptom control, and plans for acute exacerbations. No changes today to the current treatment plan as the patient is stable, monitor for acute changes 07/10/2018 Appointment: [phone] [facility] (15 min) Moderate 07/10/2018 Patient Education: Patient Medication Summary Completed 07/10/2018 Appointment: Injection 06/28/2018 Patient Education: Patient Medication Summary Completed 06/28/2018 Visit Plan: Elevated PTH - parathyroid nuclear medicine uptake at [facility] [place] - 06/26, 12 , 13 are open Osteopenia - discussed the pt's dx and the fact that insurance will not pay for prolia due to lack of dx of Osteoporosis. 06/19/2018 Appointment: [phone] [facility] (15 min) Moderate 06/19/2018 Patient Education: Patient [...] injection. 01/29/2018 [phone] ([facility] min) Complex 01/29/2018 Patient Education: Patient [...] surrogate. 01/08/2018 Appointment: Lalitha Alcala WPtel: [phone] [phone] [facility] - Annual Wellness Visit 01/08/2018 Patient Education: [...] acute changes 07/18/2017 Appointment: [phone] [facility] (15 min) Moderate 07/18/2017 Patient Education: Patient [...] symptoms persist 06/30/2017 Appointment: Lalitha Alcala WPtel: [phone] [phone] (15 min) Moderate 06/30/2017 Patient Education: Patient [...] or concerns. 05/08/2017 Appointment: Chastity Chavira WPtel: [facility] (30 min) Complex 05/08/2017 Patient Education: Patient [...] they worsen. 02/14/2017 Appointment: [phone] [place] (15 min) Moderate 02/14/2017 Patient Education: Patient Medication Summary Completed 02/14/2017 Care Plan: Referral Order SNOMED-CT : [id number] Pending 02/14/2017 Appointment: Deneen Rosenberg WPtel: [phone] [facility] [place] (15 min) Moderate 02/01/2017 Visit Plan: Hypertension - well controlled - continue with current medications, continue with no added salt diet. Pt has been encouraged to exercise daily. The pt has been advised to call the office if there are any acute concerns about change in blood pressure readings at home. Cough - improved from yesterday. 01/31/2017 Appointment: Deneen Rosenberg WPtel: [phone] [facility] [place] (15 min) Moderate 01/31/2017 Patient Education: Patient Medication Summary Completed 01/31/2017 Patient Education: Obesity Completed 01/31/2017 Patient Education: Hypertension Completed 01/31/2017 Visit Plan: Sinusitis - Pt has acute infection - pain in face, maxillary region, Pt informed to use decongestant, RX given to patient, sinus rinses also recommended. Call if symptoms do not show improvement. 01/30/2017 App[facility]ment: [phone] [place] (15 min) Moderate 01/30/2017 Patient Education: [...] Ketoconazole shampoo. 12/29/2016 Appointment: Deneen Rosenberg WPtel: [phone] [facility] (15 min) Moderate 12/29/2016 Patient Education: Patient Medication Summary Completed 12/29/2016 Patient Education: Obesity Completed 12/29/2016 Patient Education: Hypertension Completed 12/29/2016 Patient Education: Patient Medication Summary Completed 12/26/2016 Appointment: Injection 07/13/2016 Patient Education: Patient Medication Summary Completed 07/13/2016 Visit Plan: Pt went to ED from office, stating she does not think she will be able to get to her ENT in [place]. 04/01/2016 Appointment: Lalitha Alcala WPtel: [facility] [id number] (30 min) Complex 04/01/2016 Patient Education: Patient [...] when traveling 03/24/2016 Appointment: [phone] ([facility] min) Complex 03/24/2016 Patient Education: Patient [...] Care Plan: COMPLETE CBC AUTOMATED LOINC : 61901-2 Ordered 03/17/2015 Visit Plan: Asthma EXACERBATION - [...] acutely worsen. 10/15/2014 Appointment: Deneen Rosenberg WPtel: [address] [place], [place] [phone] [facility] 10/15/2014 Patient Education: Patient Medication Summary Completed [...] show improvement. 12/05/2013 Appointment: Lalitha Alcala WPtel: [phone] [facility] 12/05/2013 Patient Education: Patient Medication Summary Completed 12/05/2013 Appointment: Deneen Rosenberg WPtel: [address] [place], [place] [phone] Follow up 10/01/2013 Visit Plan: Hyperlipidemia - [...] consider cpap. 09/25/2013 Appointment: Deneen Rosenberg WPtel: [facility]5 [facility] Follow up 09/25/2013 Patient Education: Patient Medication Summary Completed 09/25/2013 Visit Plan: Asthma - chronic problem for this patient. We have reviewed chronic treatment strategy, symptom control, and plans for acute exacerbations. No changes today to the current treatment plan as the patient is stable, monitor for acute changes 07/09/2013 Appointment: Deneen Rosenberg WPtel: [facility]2 [facility] Follow up 07/09/2013 Patient Education: Patient Medication Summary Completed 07/09/2013 Appointment: Deneen Rosenberg WPtel: [facility]4 [facility] Follow up 07/01/2013 Appointment: Lalitha Alcala WPtel: [phone] [phone] Lab Draw 06/11/2013 Patient Education: Patient Medication [...] beneficial in her noctural hypoxemia. 2013 Appointment: Deneen Rosenberg WPtel: [facility] [address] Other 2013 Patient Education: Patient Medication Summary [...] TUNNEL ENTRAPMENT. 03/22/2013 Appointment: Deneen Rosenberg WPtel: [phone] [facility] Other 03/22/2013 Patient Education: Patient Medication Summary [...] check labs. 02/28/2013 [facility]ment[phone] [facility] 02/28/2013 Patient Education: Patient Medication Summary Completed 02/28/2013 Visit Plan: Sinusitis - Pt has acute infection - pain in face, maxillary region, Pt informed to use decongestant, RX given to patient, sinus rinses also recommended. Call if symptoms do not show improvement. Rocephin injection today in the office 10/23/2012 Appointment: [facility]cala [facility]el[phone] [facility] 10/23/2012 Patient Education: Patient Medication Summary Completed 10/23/2012 Appointment: [facility]el[phone] [facility] 03/14/2012 Patient Education: Patient Medication [...] medications. 03/08/2012 Appointment: [facility] Rosen[facility]el[phone] [facility] [place] Other 03/08/2012 Patient Education: Patient Medication Summary Completed 03/08/2012 Patient Education: High Blood Pressure: Essential Hypertension Completed 2011 Visit Plan: Asthma- controlled by the current medication.. No change in the treatment at this time. Osteoarthritis- pt has been instructed to use celebrex twice daily on the days that she is working. 09/28/2011 Appointment: Deneen Rosenberg WPtel: [phone] [facility] Follow up 09/28/2011 Patient Education: Patient Medication Summary Completed 09/28/2011 Appointment: Deneen Rosenberg WPtel: [phone] [facility] [place] Injection 07/05/2011 Patient Education: Patient Medication Summary Completed 07/05/2011 Appointment: [facility]el[phone] [facility] 06/28/2011 Patient Education: Patient Medication [...] as indicated. 06/27/2011 Appointment: Lalitha Alcala WPtel: [phone] Other 06/27/2011 Patient Education: Patient Medication Summary Completed 06/27/2011 Care Plan: CBC (COMPLETE CBC W/AUTO DIFF WBC) LOINC : 60592-3 Ordered 06/27/2011 Care Plan: CHEM 14 (COMPREHEN METABOLIC PANEL) LOINC : 39190-3 Ordered 06/27/2011 Care Plan: LIPID GRP (LIPID PANEL) LOINC : 08520-2 Ordered 06/27/2011 Care Plan: TSH (ASSAY THYROID STIM HORMONE) Ordered 06/27/2011 Referral: External, Ordering Provider Referral Completed Referral: External, Ordering Provider They will call the patient with appt information. Completed Instructions Comment . Asthma - chronic problem for this [...] improved, or if symptoms acutely worsen. . Hypertension - well controlled - continue [...] patient and checks labs as indicated. . Hypertension - well controlled - continue with current medications, continue with no added salt diet. Pt has been encouraged to exercise daily. The pt has been advised to call the office if there are any acute concerns about change in blood pressure readings at home. Sinusitis - Recommended pt to have diflucan x 10 days. . Medicare Exam - today we discussed [...] prn. Vaginal dryness-samples of estrace cream . Trigeminal Neuralgia - due to shingles - rx for prednisone taper and valcyvlovir 1 gram bid. COPD - rx for albuterol and proair. . Well Adult Female - exam completed. [...] patient is stable, monitor for acute changes PT AGREED TO SLEEP STUDY AND PFT'S, [...] PTH - parathyroid nuclear medicine uptake at [facility] [place] - 06/26, , are open Osteopenia - discussed the pt's dx and the fact that insurance will not pay for prolia due to lack of dx of Osteoporosis. . Sinusitis - Pt has acute infection - pain in face, maxillary region, Pt informed to use decongestant, RX given to patient, sinus rinses also recommended. Call if symptoms do not show improvement. . Low back pain- the patient was [...] occurs at the site of injection. . Sinusitis - Pt has acute infection [...] not improved, or if symptoms acutely worsen. sample of TUDORZA ONE INHALE TWICE DAILY, [...] home. Cough - improved from yesterday. . COPD - chronic problem for this [...] prove beneficial in her noctural hypoxemia. . Sinusitis - Pt has acute infection [...] having problems and desires to consider cpap. recommended pt to hold the GEMFIBROZIL x [...] able to get to her ENT in [place]. . Sinusitis - Pt has acute infection [...] DOPA paperwork for health care surrogate. . Arthritis - plan to refer pt [...] to assure normal liver response to medications. . Cerumen Impaction - The impacted cerumen [...]
--- OUTSIDE RECORDS SUMMARY | 2018-11-30 19:37 | XMS REPORT | Continuity of Care Document ---
Author Author [facility] Address Unknown Phone Unavailable Allergies Active Description Code Type Severity Reaction Onset Reported/Identified Relationship to Patient Clinical Status Yes Horse/Equine Containing Products [id number] Drug Allergy Unknown N/A 2008 Yes penicillin G [id number] Drug Allergy Unknown N/A 07/22/2009 Yes Sulfa (Sulfonamide Antibiotics) [id number] Drug Allergy Unknown N/A 2008 Yes clopidogrel bisulfate [id number] Drug Allergy Moderate SEVERE BLEEDING 01/19/2011 Yes TB INGRIS TEST TB INGRIS TEST Unknown N/A 03/15/2016 Medications There is no data. Problems Date Dx Coded Attending Type Code Diagnosis Diagnosed By 08/18/2009 Ot 715.34 08/18/2009 Ot 726.12 08/18/2009 Ot V57.1 04/12/2010 Ot 493.90 ASTHMA, UNSPECIFIED 04/12/2010 Ot 574.00 CHOLELITH W AC CHOLECYST 04/12/2010 Ot 574.10 CHOLELITH W CHOLECYS NEC 04/12/2010 Ot 715.90 OSTEOARTHROS NOS-UNSPEC 10/15/2010 Ot 786.05 SHORTNESS OF BREATH 10/15/2010 Ot 786.2 COUGH 01/19/2011 Ot 850.0 CONCUSSION W/ O COMA 01/19/2011 Ot 920 CONTUSION FACE/ SCALP/NCK 01/19/2011 Ot 959.01 HEAD INJURY , NOS 01/19/2011 Ot E000.8 OTHER EXTERNAL CAUSE STATUS 01/19/2011 Ot E849.0 ACCIDENT IN HOME 01/19/2011 Ot E888.1 FALL STRIKING OBJECT NEC 01/19/2011 Ot V06.1 DIPHTHERIA- TETANUS-PERTUSSIS, COMBINED [ 05/11/2013 GUS SILVA Ot 327.23 OBSTRUCTIVE SLEEP APNEA (ADULT) (PEDIATR 05/11/2013 GUS SILVA Ot 786.09 RESPIRATORY ABNORM NEC 05/23/2013 AYAD HARRISON, ALANNA Patel Ot 726.2 SHOULDER REGION DIS NEC 05/23/2013 ALANNA LION MD Ot V57.1 PHYSICAL THERAPY NEC 10/15/2014 Ot V76.12 10/15/2014 Ot 401.9 10/15/2014 Ot 493.90 10/15/2014 Ot 592.0 10/15/2014 Ot 715.90 10/15/2014 Ot 722.52 10/15/2014 Ot V49.81 10/15/2014 Ot 401.9 10/15/2014 Ot 493.90 10/15/2014 Ot 715.90 10/15/2014 Ot 733.90 10/15/2014 Ot V49.81 10/15/2014 Ot V82.81 10/15/2014 Ot V76.12 10/15/2014 NICK HARRISON FACRich, BASSEM GILLIAM CCDS Ot 786.59 10/15/2014 FAITH HARRISON, FILIPE Fink Ot 493.90 12/11/2014 FAITH HARRISON, FILIPE Fink Ot 496 12/11/2014 FAITH HARRISON, FILIPE Fink Ot 786.2 01/13/2015 FAITH HARRISON, FILIPE Fink Ot 496 CHR AIRWAY OBSTRUCT NEC 01/13/2015 FILIPE CUEVAS MD Ot 786.2 COUGH 05/20/2015 REBEKAH LARA APRN Ot V76.12 09/22/2015 Ot 401.9 09/22/2015 Ot 493.90 09/22/2015 Ot 592.0 09/22/2015 Ot 715.90 09/22/2015 Ot 722.52 09/22/2015 Ot V49.81 09/22/2015 Ot 401.9 09/22/2015 Ot 493.90 09/22/2015 Ot 715.90 09/22/2015 Ot 733.90 09/22/2015 Ot V49.81 09/22/2015 Ot V82.81 09/22/2015 Ot V76.12 09/22/2015 NICK HARRISON FACC, BASSEM GILLIAM CCDS Ot 786.59 09/22/2015 FILIPE CUEVAS MD Ot 493.90 09/22/2015 FILIPE CUEVAS MD Ot 496 09/22/2015 FILIPE CUEVAS MD Ot 786.2 09/22/[address] TRAIN DRIVER Ot V76.12 09/22/2015 TRINIDAD CARRASCO MD Ot R04.0 EPISTAXIS 03/15/2016 FILIPE CUEVAS MD Ot 496 CHR AIRWAY OBSTRUCT NEC 03/15/2016 FILIPE CUEVAS MD Ot 786.2 COUGH 03/15/2016 DARRELL ASCENCIO DO Ot M54.2 CERVICALGIA 03/15/2016 DARRELL ASCENCIO DO Ot N39.0 URINARY TRACT INFECTION, SITE NOT SPECIF 03/15/2016 DARRELL ASCENCIO DO Ot R07.89 OTHER CHEST PAIN 03/15/2016 Ot 401.9 HYPERTENSION NOS 03/15/2016 Ot 493.90 ASTHMA, UNSPECIFIED 03/15/2016 Ot 592.0 CALCULUS OF KIDNEY 03/15/2016 Ot 715.90 OSTEOARTHROS NOS-UNSPEC 03/15/2016 Ot 722.52 LUMB/ LUMBOSAC DISC DEGEN 03/15/2016 Ot V49.81 ASYMPT POSTMENOPAUSAL STATUS (AGE-RELATE 03/15/2016 Ot 401.9 HYPERTENSION NOS 03/15/2016 Ot 493.90 ASTHMA, UNSPECIFIED 03/15/2016 Ot 715.90 OSTEOARTHROS NOS-UNSPEC 03/15/2016 Ot 733.90 BONE CARTILAGE DIS NOS 03/15/2016 Ot V49.81 ASYMPT POSTMENOPAUSAL STATUS (AGE-RELATE 03/15/2016 Ot V82.81 SCREENING FOR OSTEOPOROSIS 03/15/2016 Ot V76.12 OTH SCREEN MAMMO-MALIGN NEOPLASM OF [place]OREN[place] 03/15/2016 NICK HARRISON FACC, ALI FACP CCDS Ot 786.59 CHEST PAIN NEC 03/15/2016 FILIPE CUEVAS MD Ot 493.90 ASTHMA, UNSPECIFIED 03/15/2016 FILIPE CUEVAS MD Ot 496 CHR AIRWAY OBSTRUCT NEC 03/15/2016 FILIPE CUEVAS MD Ot 786.2 COUGH 03/15/2016 REBEKAH LARA APRN Ot V76.12 OTH SCREEN MAMMO-MALIGN NEOPLASM OF [place] 03/17/2016 DARRELL ASCENCIO DO Ot M54.2 CERVICALGIA 03/17/2016 DARRELL ASCENCIO DO Ot N39.0 URINARY TRACT INFECTION, SITE NOT SPECIF 03/17/2016 DARRELL ASCENCIO DO Ot R07.89 OTHER CHEST PAIN 04/01/[address] TRAIN DRIVER Ot R04.0 EPISTAXIS 04/04/[address] TRAIN DRIVER Ot R04.0 EPISTAXIS 04/04/[address] TRAIN DRIVER Ot R04.0 EPISTAXIS 12/13/2016 Ot V76.12 OTH SCREEN MAMMO-MALIGN NEOPLASM OF [place] 12/13/2016 NICK HARRISON FACRich, ALI FACP CCDS Ot 786.59 CHEST PAIN NEC 12/13/2016 FILIPE CUEVAS MD Ot 493.90 ASTHMA, UNSPECIFIED 12/13/2016 FILIPE CUEVAS MD Ot 496 CHR AIRWAY OBSTRUCT NEC 12/13/2016 FILIPE CUEVAS MD Ot 786.2 COUGH 12/13/[address] TRAIN DRIVER Ot V76.12 OTH SCREEN MAMMO-MALIGN NEOPLASM OF [place] 12/13/2016 Ot V76.12 OTH SCREEN MAMMO-MALIGN NEOPLASM OF [place] 12/13/2016 NICK HARRISON FACC, ALI FACP CCDS Ot 786.59 CHEST PAIN NEC 12/13/2016 FILIPE CUEVAS MD Ot 493.90 ASTHMA, UNSPECIFIED 12/13/2016 FILIPE CUEVAS MD Ot 496 CHR AIRWAY OBSTRUCT NEC 12/13/2016 FILIPE CUEVAS MD Ot 786.2 COUGH 12/13/[address] TRAIN DRIVER Ot V76.12 OTH SCREEN MAMMO-MALIGN NEOPLASM OF [place] 12/13/2016 NICK HARRISON FACC, ALI FACP CCDS Ot 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 12/13/2016 NICK HARRISON FACC, ALI FACP CCDS Ot R06.02 SHORTNESS OF BREATH 12/15/2016 NICK HARRISON FACC, ALI FACP CCDS Ot 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 12/15/2016 NICK HARRISON FACC, ALI FACP CCDS Ot 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 12/15/2016 NICK HARRISON FACC, ALI FACP CCDS Ot J43.8 OTHER EMPHYSEMA 12/21/2016 NICK HARRISON FACC, ALI FACP CCDS Ot 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 12/21/2016 NICK HARRISON FACC, ALI FACP CCDS Ot J43.8 OTHER EMPHYSEMA 12/21/2016 NICK MD FACC, ALI FACP CCDS Ot R06.02 SHORTNESS OF BREATH 12/21/2016 NICK HARRISON FACC, ALI FACP CCDS Ot 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 12/21/2016 NICK GRESHAMC, ALI FACP CCDS Ot J43.8 OTHER EMPHYSEMA 12/21/2016 NICK HARRISON FACC, ALI FACP CCDS Ot R06.02 SHORTNESS OF BREATH 12/23/2016 NICK GRESHAMC, ALI FACP CCDS Ot J43.8 OTHER EMPHYSEMA 12/23/2016 NICK HARRISON FACC, ALI FACP CCDS Ot R26.89 OTHER ABNORMALITIES OF GAIT AND MOBILITY 12/23/2016 NICK HARRISON FACC, ALI FACP CCDS Ot J43.8 OTHER EMPHYSEMA 12/23/2016 NCIK HARRISON FACC, ALI FACP CCDS Ot R26.89 OTHER ABNORMALITIES OF GAIT AND MOBILITY 01/12/2017 NICK GRESHAMC, ALI FACP CCDS Ot 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 01/12/2017 NICK HARRISON FACC, ALI FACP CCDS Ot J43.8 OTHER EMPHYSEMA 01/12/2017 NICK GRESHAMC, ALI FACP CCDS Ot R06.02 SHORTNESS OF BREATH 01/12/2017 NICK HARRISON FACC, ALI FACP CCDS Ot J43.8 OTHER EMPHYSEMA 01/12/2017 NICK GRESHAMC, ALI FACP CCDS Ot R26.89 OTHER ABNORMALITIES OF GAIT AND MOBILITY 01/18/2017 NICK HARRISON FACC, ALI FACP CCDS Ot 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 01/18/2017 NICK GRESHAMC, ALI FACP CCDS Ot J43.8 OTHER EMPHYSEMA 01/18/2017 NICK GRESHAMC, ALI FACP CCDS Ot R06.02 SHORTNESS OF BREATH 01/18/2017 NICK HARRISON FACC, ALI FACP CCDS Ot J43.8 OTHER EMPHYSEMA 01/18/2017 NICK HARRISON FACC, ALI FACP CCDS Ot R26.89 OTHER ABNORMALITIES OF GAIT AND MOBILITY 07/24/2017 Ot V76.12 OTH SCREEN MAMMO-MALIGN NEOPLASM OF [place]OREN[place] 07/24/2017 NICK GRESHAMC, ALI FACP CCDS Ot 786.59 CHEST PAIN NEC 07/24/2017 FILIPE CUEVAS MD Ot 493.90 ASTHMA, UNSPECIFIED 07/24/2017 FILIPE CUEVAS MD Ot 496 CHR AIRWAY OBSTRUCT NEC 07/24/2017 FILIPE CUEVAS MD Ot 786.2 COUGH 07/24/2017 REBEKAH LARA APRN Ot V76.12 OTH SCREEN MAMMO-MALIGN NEOPLASM OF [place]EN[place] 07/24/2017 NICK HARRISON FACC, ALI FACP CCDS Ot 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 07/24/2017 NICK HARRISON FACC, ALI FACP CCDS Ot J43.8 OTHER EMPHYSEMA 07/24/2017 NICK HARRISON FACC, ALI FACP CCDS Ot R06.02 SHORTNESS OF BREATH 07/24/2017 NICK HARRISON FACC, ALI FACP CCDS Ot J43.8 OTHER EMPHYSEMA 07/24/2017 NICK HARRISON FACC, ALI FACP CCDS Ot R26.89 OTHER ABNORMALITIES OF GAIT AND MOBILITY 08/11/2017 HERMINIO CORTES SPRING CLIPPER Ot Z12.31 ENCNTR SCREEN MAMMOGRAM FOR MALIGNANT NE 08/11/2017 Ot V76.12 OTH SCREEN MAMMO-MALIGN NEOPLASM OF LORENZA 08/11/2017 HERMINIO CORTES SPRING CLIPPER Ot Z12.31 ENCNTR SCREEN MAMMOGRAM FOR MALIGNANT NE 08/15/2017 FILIPE CUEVAS MD Ot M41.9 SCOLIOSIS, UNSPECIFIED 08/15/2017 FILIPE CUEVAS MD Ot M48.061 SPINAL STENOSIS, LUMBAR REGION WITHOUT N 08/18/2017 Ot V76.12 OTH SCREEN MAMMO-MALIGN NEOPLASM OF [place] 08/18/2017 HERMINIO CORTES SPRING CLIPPER Ot Z12.31 ENCNTR SCREEN MAMMOGRAM FOR MALIGNANT NE 09/11/2017 HERMINIO CORTES SPRING CLIPPER Ot Z12.31 ENCNTR SCREEN MAMMOGRAM FOR MALIGNANT NE 04/30/2018 NICK HARRISON FACC, ALI FACP CCDS Ot 786.59 CHEST PAIN NEC 04/30/2018 FILIPE CUEVAS MD Ot 493.90 ASTHMA, UNSPECIFIED 04/30/2018 FILIPE CUEVAS MD Ot 496 CHR AIRWAY OBSTRUCT NEC 04/30/2018 FILIPE CUEVAS MD Ot 786.2 COUGH 04/30/[address] TRAIN DRIVER Ot V76.12 OTH SCREEN MAMMO-MALIGN NEOPLASM OF [place]OREN[place] 04/30/2018 NICK HARRISON FACC, ALI FACP CCDS Ot 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 04/30/2018 NICK HARRISON FACC, ALI FACP CCDS Ot J43.8 OTHER EMPHYSEMA 04/30/2018 NICK HARRISON FACC, ALI FACP CCDS Ot R06.02 SHORTNESS OF BREATH 04/30/2018 NICK HARRISON FACC, ALI FACP CCDS Ot J43.8 OTHER EMPHYSEMA 04/30/2018 NICK HARRISON FACC, ALI FACP CCDS Ot R26.89 OTHER ABNORMALITIES OF GAIT AND MOBILITY 04/30/2018 FAITH HARRISON, FILIPE Fink Ot M41.9 SCOLIOSIS, UNSPECIFIED 04/30/2018 FAITH HARRISON, FILIPE Fink Ot M48.061 SPINAL STENOSIS, LUMBAR REGION WITHOUT N 04/30/2018 HERMINIO CORTES Ot Z12.31 ENCNTR SCREEN MAMMOGRAM FOR MALIGNANT NE 05/01/2018 MEHUL MIGUEL MD Ot M54.2 CERVICALGIA 05/01/2018 MEHUL MIGUEL MD Ot M54.6 PAIN IN THORACIC SPINE 05/01/2018 MEHUL MIGUEL MD Ot Z53.8 PROCEDURE AND TREATMENT NOT CARRIED OUT 05/03/2018 LILI ROACH Ot M81.0 AGE-RELATED OSTEOPOROSIS W/O CURRENT PAT 05/10/2018 LILI ROACH Ot M81.0 AGE-RELATED OSTEOPOROSIS W/O CURRENT PAT 05/10/2018 LILI ROACH Ot M81.0 AGE-RELATED OSTEOPOROSIS W/O CURRENT PAT 05/10/2018 LILI ROACH Ot M81.0 AGE-RELATED OSTEOPOROSIS W/O CURRENT PAT 06/26/2018 NICK HARRISON FACC, ALI FACP CCDS Ot 786.59 CHEST PAIN NEC 06/26/2018 FILIPE CUEVAS MD Ot 493.90 ASTHMA, UNSPECIFIED 06/26/2018 FILIPE CUEVAS MD Ot 496 CHR AIRWAY OBSTRUCT NEC 06/26/2018 FILIPE CUEVAS MD Ot 786.2 COUGH 06/26/[address] TRAIN DRIVER Ot V76.12 OTH SCREEN MAMMO-MALIGN NEOPLASM OF [place]OREN[place] 06/26/2018 NICK HARRISON FACC, ALI FACP CCDS Ot 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 06/26/2018 NICK HARRISON [facility], ALI FACP CCDS Ot J43.8 OTHER EMPHYSEMA 06/26/2018 NICK HARRISON [facility], ALI FACP CCDS Ot R06.02 SHORTNESS OF BREATH 06/26/2018 NICK HARRISON [facility], ALI FACP CCDS Ot J43.8 OTHER EMPHYSEMA 06/26/2018 NICK HARRISON [facility], ALI FACP CCDS Ot R26.89 OTHER ABNORMALITIES OF GAIT AND MOBILITY 06/26/2018 FILIPE CUEVAS MD Ot M41.9 SCOLIOSIS, UNSPECIFIED 06/26/2018 FILIPE CUEVAS MD Ot M48.061 SPINAL STENOSIS, LUMBAR REGION WITHOUT N 06/26/2018 HERMINIO CORTES Ot Z12.31 ENCNTR SCREEN MAMMOGRAM FOR MALIGNANT NE 06/26/2018 MEHUL MIGUEL MD Ot M54.2 CERVICALGIA 06/26/2018 MEHUL MIGUEL MD, Ot M54.6 PAIN IN THORACIC SPINE 06/26/2018 MEHUL MIGUEL MD Ot Z53.8 PROCEDURE AND TREATMENT NOT CARRIED OUT 06/26/2018 LILI ROACH Ot M81.0 AGE-RELATED OSTEOPOROSIS W/O CURRENT PAT 06/27/2018 FILIPE CUEVAS MD Ot R94.6 ABNORMAL RESULTS OF THYROID FUNCTION PRINCESS 07/02/2018 FILIPE CUEVAS MD Ot R94.6 ABNORMAL RESULTS OF THYROID FUNCTION PRINCESS 08/13/2018 BALDEMAR MONAHAN SPRING CLIPPER Ot E78.5 HYPERLIPIDEMIA, UNSPECIFIED 08/13/2018 BALDEMAR MONAHAN SPRING CLIPPER Ot G47.39 OTHER SLEEP APNEA 08/13/2018 BALDEMAR MONAHAN SPRING CLIPPER Ot I10 ESSENTIAL (PRIMARY) HYPERTENSION 08/13/2018 BALDEMAR MONAHAN SPRING CLIPPER Ot M79.89 OTHER SPECIFIED SOFT TISSUE DISORDERS 11/02/2018 ROSLYN HUNTER MD Ot B02.9 ZOSTER WITHOUT COMPLICATIONS 11/02/2018 ROSLYN HUNTER MD Ot G51.0 DUNN'S PALSY 11/02/2018 ROSLYN HUNTER MD Ot I10 ESSENTIAL (PRIMARY) HYPERTENSION 11/02/2018 ROSLYN HUNTER MD Ot J44.9 CHRONIC OBSTRUCTIVE PULMONARY DISEASE, U 11/02/2018 ELSA HARRISON, ROSLYN Prasad Ot R29.810 FACIAL WEAKNESS 11/02/2018 ELSA HARRISON, ROSLYN Prasad Ot Z79.51 SKILLED NURSING (CURRENT) USE OF INHALED STERO 11/02/2018 ELSA HARRISON, ROSLYN Prasad Ot Z79.82 SKILLED NURSING (CURRENT) USE OF ASPIRIN 11/02/2018 ELSA HARRISON, ROSLYN Prasad Ot Z88.0 ALLERGY STATUS TO PENICILLIN 11/02/2018 ELSA HARRISON, ROLSYN Prasad Ot Z88.2 ALLERGY STATUS TO SULFONAMIDES STATUS 11/02/2018 ELSA HARRISON, ROSLYN Prasad Ot Z88.8 ALLERGY STATUS TO OTH DRUG/MEDS/BIOL SUB 11/02/2018 ROSLYN HUNTER MD Ot Z90.710 ACQUIRED ABSENCE OF BOTH CERVIX AND UTER 11/03/2018 ROSLYN HUNTER MD Ot B02.9 ZOSTER WITHOUT COMPLICATIONS 11/03/2018 ROSLYN HUNTER MD Ot G51.0 DUNN'S PALSY 11/03/2018 ROSLYN HUNTER MD Ot I10 ESSENTIAL (PRIMARY) HYPERTENSION 11/03/2018 ELSA HARRISON, ROSLYN Prasad Ot J44.9 CHRONIC OBSTRUCTIVE PULMONARY DISEASE, U 11/03/2018 ELSA HARRISON, ROSLYN Prasad Ot R20.0 ANESTHESIA OF SKIN 11/03/2018 ROSLYN HUNTER MD Ot Z79.51 SKILLED NURSING (CURRENT) USE OF INHALED STERO 11/03/2018 ROSLYN HUNTER MD Ot Z79.82 SKILLED NURSING (CURRENT) USE OF ASPIRIN 11/03/2018 ROSLYN HUNTER MD Ot Z87.448 PERSONAL HISTORY OF OTHER DISEASES OF UR 11/03/2018 ROSLYN HUNTER MD Ot Z88.0 ALLERGY STATUS TO PENICILLIN 11/03/2018 ROSLYN HUNTER MD Ot Z88.2 ALLERGY STATUS TO SULFONAMIDES STATUS 11/03/2018 ROSLYN HUNTER MD Ot Z88.8 ALLERGY STATUS TO OTH DRUG/MEDS/BIOL SUB 11/03/2018 ROSLYN HUNTER MD Ot Z90.710 ACQUIRED ABSENCE OF BOTH CERVIX AND UTER 11/03/2018 ROSLYN HUNTER MD Ot Z91.14 PATIENT'S OTHER NONCOMPLIANCE WITH MEDIC 11/03/2018 ROSLYN HUNTER MD Ot Z98.890 OTHER SPECIFIED POSTPROCEDURAL STATES 11/05/2018 ELSA HARRISON, ROSLYN Prasad Ot B02.9 ZOSTER WITHOUT COMPLICATIONS 11/05/2018 ELSA HARRISON, ROSLYN Prasad Ot G51.0 DUNN'S PALSY 11/05/2018 ELSA HARRISON, ROSLYN Prasad Ot I10 ESSENTIAL (PRIMARY) HYPERTENSION 11/05/2018 ELSA HARRISON, ROSLYN Prasad Ot J44.9 CHRONIC OBSTRUCTIVE PULMONARY DISEASE, U 11/05/2018 ELSA HARRISON, ROSLYN Prasad Ot R29.810 FACIAL WEAKNESS 11/05/2018 ELSA HARRISON, ROSLYN Prasad Ot Z79.51 SKILLED NURSING (CURRENT) USE OF INHALED STERO 11/05/2018 ELSA HARRISON, ROSLYN Prasad Ot Z79.82 ETHANOL OPERATIONS MANAGER (CURRENT) USE OF ASPIRIN 11/05/2018 ELSA HARRISON, ROSLYN Prasad Ot Z88.0 ALLERGY STATUS TO PENICILLIN 11/05/2018 ELSA HARRISON, ROSLYN Prasad Ot Z88.2 ALLERGY STATUS TO SULFONAMIDES STATUS 11/05/2018 ELSA HARRISON, ROSLYN Prasad Ot Z88.8 ALLERGY STATUS TO OTH DRUG/MEDS/BIOL SUB 11/05/2018 ELSA HARRISON, ROSLYN Prasad Ot Z90.710 ACQUIRED ABSENCE OF BOTH CERVIX AND UTER 11/06/2018 ELSA HARRISON, ROSLYN Prasad Ot B02.9 ZOSTER WITHOUT COMPLICATIONS 11/06/2018 ELSA HARRISON, ROSLYN Prasad Ot G51.0 DUNN'S PALSY 11/06/2018 ELSA HARRISON, ROSLYN Shanice Ot I10 ESSENTIAL (PRIMARY) HYPERTENSION 11/06/2018 ELSA HARRISON, ROSLYN Shanice Ot J44.9 CHRONIC OBSTRUCTIVE PULMONARY DISEASE, U 11/06/2018 ELSA HARRISON, ROSLYN Prasad Ot R20.0 ANESTHESIA OF SKIN 11/06/2018 ELSA HARRISON, ROSLYN Prasad Ot Z79.51 SKILLED NURSING (CURRENT) USE OF INHALED STERO 11/06/2018 ELSA HARRISON, ROSLYN Prasad Ot Z79.82 SKILLED NURSING (CURRENT) USE OF ASPIRIN 11/06/2018 ELSA HARRISON, ROSLYN Prasad Ot Z87.448 PERSONAL HISTORY OF OTHER DISEASES OF UR 11/06/2018 ELSA HARRISON, ROSLYN Prasad Ot Z88.0 ALLERGY STATUS TO PENICILLIN 11/06/2018 ELSA HARRISON, ROSLYN Prasad Ot Z88.2 ALLERGY STATUS TO SULFONAMIDES STATUS 11/06/2018 ELSA HARRISON, ROSLYN Prasad Ot Z88.8 ALLERGY STATUS TO OTH DRUG/MEDS/BIOL SUB 11/06/2018 ROSLYN HUNTER MD Ot Z90.710 ACQUIRED ABSENCE OF BOTH CERVIX AND UTER 11/06/2018 ROSLYN HUNTER MD Ot Z91.14 PATIENT'S OTHER NONCOMPLIANCE WITH MEDIC 11/06/2018 ROSLYN HUNTER MD Ot Z98.890 OTHER SPECIFIED POSTPROCEDURAL STATES 11/23/2018 LUCIA BEASLEY APRN Ot Z12.31 ENCNTR SCREEN MAMMOGRAM FOR MALIGNANT NE Procedures Code Description Performed By Performed On 51.23 LAPAROSCOPIC CHOLECYSTECTOMY 04/11/2010 87.53 INTRAOPER CHOLANGIOGRAM 04/11/2010 Results Test Result Range Complete blood count (CBC) with automated white blood cell (WBC) differential - 11/02/18 07:45 Blood leukocytes automated count (number/volume) 8.5 10*3/uL 4.3-11.0 Blood erythrocytes automated count (number/volume) 3.98 10*6/uL 4.35-5.85 Venous blood hemoglobin measurement (mass/volume) 12.8 g/dL 11.5-16.0 Blood hematocrit (volume fraction) 37 % 35-52 Automated erythrocyte mean corpuscular volume 94 [foz_us] 80-99 Automated erythrocyte mean corpuscular hemoglobin (mass per erythrocyte) 32 pg 25-34 Automated erythrocyte mean corpuscular hemoglobin concentration measurement ( mass/volume) 34 g/dL 32-36 Automated erythrocyte distribution width ratio 12.2 % 10.0-14.5 Automated blood platelet count (count/volume) 398 10*3/uL 130-400 Automated blood platelet mean volume measurement 9.4 [foz_us] 7.4-10.4 Automated blood neutrophils/100 leukocytes 46 % 42-75 Automated blood lymphocytes/100 leukocytes 37 % 12-44 Blood monocytes/100 leukocytes 12 % 0-12 Automated blood eosinophils/100 leukocytes 4 % 0-10 Automated blood basophils/100 leukocytes 1 % 0-10 Blood neutrophils automated count (number/volume) 3.9 10*3 1.8-7.8 Blood lymphocytes automated count (number/volume) 3.2 10*3 1.0-4.0 Blood monocytes automated count (number/volume) 1.0 10*3 0.0-1.0 Automated eosinophil count 0.3 10*3/uL 0.0-0.3 Automated blood basophil count (count/volume) 0.0 10*3/uL 0.0-0.1 Comprehensive metabolic panel - 11/02/18 07:45 Serum or plasma sodium measurement (moles/volume) 139 mmol/L 135-145 Serum or plasma potassium measurement (moles/volume) 3.8 mmol/L 3.6-5.0 Serum or plasma chloride measurement (moles/volume) 103 mmol/L 98-107 Carbon dioxide 24 mmol/L 21-32 Serum or plasma anion gap determination (moles/volume) 12 mmol/L 5-14 Serum or plasma urea nitrogen measurement (mass/volume) 10 mg/dL 7-18 Serum or plasma creatinine measurement (mass/volume) 0.72 mg/dL 0.60-1.30 Serum or plasma urea nitrogen/creatinine mass ratio 14 NRG Serum or plasma creatinine measurement with calculation of estimated glomerular filtration rate > NRG Serum or plasma glucose measurement (mass/volume) 102 mg/dL 70-105 Serum or plasma calcium measurement (mass/volume) 9.7 mg/dL 8.5-10.1 Serum or plasma total bilirubin measurement (mass/volume) 0.5 mg/dL 0.1-1.0 Serum or plasma alkaline phosphatase measurement (enzymatic activity/volume) 105 U/L 40-136 Serum or plasma aspartate aminotransferase measurement (enzymatic activity/ volume) 27 U/L 5-34 Serum or plasma alanine aminotransferase measurement (enzymatic activity/volume ) 23 U/L 0-55 Serum or plasma protein measurement (mass/volume) 7.5 g/dL 6.4-8.2 Serum or plasma albumin measurement (mass/volume) 4.4 g/dL 3.2-4.5 CALCIUM CORRECTED 9.4 mg/dL 8.5-10.1 PT panel in platelet poor plasma by coagulation assay - 11/02/18 07:45 Prothrombin time (PT) in platelet poor plasma by coagulation assay 12.8 s 12.2-14.7 INR in platelet poor plasma or blood by coagulation assay 1.0 0.8-1.4 Activated partial thromboplastin time (aPTT) in platelet poor plasma bycoagulation assay - 11/02/18 07:45 Activated partial thromboplastin time (aPTT) in platelet poor plasma bycoagulation assay 37 s 24-35 Fibrin D-dimer FEU measurement in platelet poor plasma (mass/volume) - 07:45 Fibrin D-dimer FEU measurement in platelet poor plasma (mass/volume) 0.67 ug/mL 0.00-0.49 Serum or plasma troponin i.cardiac measurement (mass/volume) - 11/02/18 07:45 Serum or plasma troponin i.cardiac measurement (mass/volume) < ng/ mL <0.028 Capillary blood glucose measurement by glucometer (mass/volume) - 11/02/18 07: 56 Capillary blood glucose measurement by glucometer (mass/volume) 106 mg/dL 70-110 Complete urinalysis with reflex to culture - 11/02/18 08:50 Urine color determination YELLOW NRG Urine clarity determination CLEAR NRG Urine pH measurement by test strip 7 5-9 Specific gravity of urine by test strip 1.010 1.016- 1.022 Urine protein assay by test strip, semi-quantitative NEGATIVE NEGATIVE Urine glucose detection by automated test strip NEGATIVE NEGATIVE Erythrocytes detection in urine sediment by light microscopy 2+ NEGATIVE Urine ketones detection by automated test strip NEGATIVE NEGATIVE Urine nitrite detection by test strip NEGATIVE NEGATIVE Urine total bilirubin detection by test strip NEGATIVE NEGATIVE Urine urobilinogen measurement by automated test strip (mass/volume) NORMAL NORMAL Urine leukocyte esterase detection by dipstick 1+ NEGATIVE Automated urine sediment erythrocyte count by microscopy (number/high power field) [HPF] NRG Automated urine sediment leukocyte count by microscopy (number/high power field ) RARE NRG Bacteria detection in urine sediment by light microscopy NEGATIVE NRG Squamous epithelial cells detection in urine sediment by light microscopy 0-2 NRG Crystals detection in urine sediment by light microscopy NONE NRG Casts detection in urine sediment by light microscopy NONE NRG Mucus detection in urine sediment by light microscopy NEGATIVE NRG Complete urinalysis with reflex to culture NO NRG Encounters ACCT No. Visit Date/Time Discharge Status Pt. Type Provider Facility Loc./Unit Complaint [id number] 04/28/2015 09:02:01 ACT Document Registration [id number] 11/26/2018 08:31:00 11/26/2018 23:59:59 CLS Outpatient LUCIA BEASLEY APRN [facility] RAD SCREENING [id number] 11/03/2018 10:32:00 11/03/2018 11:08:00 DIS Emergency ELSA HARRISON, ROSLYN Prasad [facility] ER FACIAL NUMBNESS AND DROOPING [id number] 11/02/2018 07:36:00 11/02/2018 23:59:59 CLS Emergency ELSA HARRISON, ROSLYN Prasad [facility] ER FACIAL DROOPING/NUMBNESS [id number] 08/08/2018 11:18:00 08/08/2018 23:59:59 CLS Outpatient TANIYA BALDEMARHER Jorge SHARMA [facility] RAD HTN [id number] 06/26/2018 12:14:00 06/26/2018 23:59:59 CLS Outpatient FILIPE CUEVAS MD [facility] CARD ELEVATED PARATHYROID HORMONE [id number] 05/10/2018 09:30:00 05/10/2018 23:59:59 CLS Outpatient LILI ROACH [facility] RAD OSTEOPOROSIS [id number] 04/30/2018 09:37:00 04/30/2018 23:59:59 CLS Outpatient MEHUL MIGUEL MD [facility] RAD CERVICAL, THORACIC PAIN [id number] 01/24/2018 16:45:00 01/24/2018 23:59:59 CLS Preadmit BAO CASTELLON APRN [facility] RT SOB,ASTHMA [id number] 08/18/2017 10:35:00 08/18/2017 23:59:59 CLS Outpatient HERMINIO CORTES [facility] RAD SCREENING [id number] 07/24/2017 09:08:00 07/24/2017 23:59:59 CLS Outpatient FILIPE CUEVAS MD [facility] RAD CHRONIC LOW BACK PAIN [id number] 12/22/2016 07:30:00 12/22/2016 23:59:59 CLS Outpatient NICK HARRISON FACC, BASSEM GILLIAM CCDS [facility] CARD SOB, CLAUDICATION,COPD [id number] 12/20/2016 07:33:00 12/20/2016 23:59:59 CLS Outpatient NICK HARRISON FACC, ALI FACJavi CCDS [facility] CARD SOB, CLAUDICATION,COPD [id number] 04/01/2016 11:53:00 04/01/2016 12:59:00 DIS Emergency ALEX [address] TRAIN 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 [facility] ER NOSE BLEED [id number] 03/15/2016 08:04:00 03/15/2016 10:37:00 DIS Emergency DARRELL ASCENCIO DO [facility] ER CHEST/DARLEEN SHOULDER PAIN [id number] 09/22/2015 15:03:00 09/22/2015 16:25:00 DIS Emergency TRINIDAD CARRASCO MD [facility] ER NOSE BLEED [id number] 04/28/2015 09:01:00 04/28/2015 23:59:59 [address]LS [address] TRAIN DRIVER [facility] RAD SCREENING [id number] 01/14/2015 00:13:00 01/14/2015 23:59:59 CLS Preadmit FILIPE CUEVAS MD [facility] LAB COUGH, COPD [id number] 10/20/2014 08:12:00 01/13/2015 00:01:00 DIS Outpatient FILIPE CUEVAS MD [facility] LAB COUGH, COPD [id number] 05/10/2013 09:59:00 05/23/2013 13:31:00 DIS Outpatient ALANNA LION MD [facility] REHAB LEFT SHOULDER PAIN [id number] 05/10/2013 21:15:00 05/11/2013 06:50:00 DIS Outpatient GUS SILVA RPA-C [facility] SLEEP SNORING,IVETTE [id number] 04/03/2013 13:01:00 04/03/2013 23:59:59 CLS Outpatient FILIPE CUEVAS MD [facility] RT ASTHMA,DYSPNEA [id number] 03/18/2013 11:05:00 03/18/2013 23:59:59 CLS Outpatient NICK HARRISON FACCBASSEM FACP CCDS [facility] CARD CHEST DISCOMFORT,HX MVP [id number] 11/30/2018 19:01:00 ACT Emergency HITESH LY MD [facility] ER PASSED OUT/DIZZINESS [id number] 05/09/2012 12:17:00 Document Registration [id number] 01/19/2011 21:33:00 Document Registration [id number] 12/23/2010 10:30:00 Document Registration [id number] 12/07/2010 14:19:00 Document Registration [id number] 10/14/2010 09:00:00 Document Registration [id number] 04/11/2010 08:16:00 Document Registration [id number] 08/18/2009 09:17:00 Document Registration [id number] 07/21/2009 08:57:00 Document Registration
[2018-11-30] MEDS ORDERED: NS IV 1000 ML 1,000 ML IV ONE (19:39)
[2018-11-30] MEDS ORDERED: NS IV 500 ML 500 ML IV ONE (19:39)
[2018-11-30] MEDS ORDERED: ONDANSETRON 4 MG/2 ML (SDV) Z0FRAN IV PRN (19:45)
[2018-11-30] MEDS ORDERED: CEFEPIME INJECTION 1,000 MG in NS (IVPB) 50 ML IV ONE (19:45)
[2018-11-30] MEDS ORDERED: WATER (STERILE) FOR INJECTION 10 ML ONE (19:46)
[2018-11-30 19:54] LABS: BASOPHILS % (AUTO) 0 % (0-10); EOSINOPHILS % (AUTO) 0 % (0-10); HEMATOCRIT 41 % (35-52); HEMOGLOBIN 14.7 G/DL (11.5-16.0); LYMPHOCYTES % (AUTO) 17 % (12-44); MEAN CORPUSCULAR HEMOGLOBIN 34 PG (25-34); MEAN CORPUSCULAR HGB CONC 36 G/DL (32-36); MEAN CORPUSCULAR VOLUME 95 FL (80-99); MEAN PLATELET VOLUME 9.3 FL (7.4-10.4); MONOCYTES # (AUTO) 0.3 X 10^3 (0.0-1.0); MONOCYTES % (AUTO) 5 % (0-12); NEUTROPHILS # (AUTO) 4.6 X 10^3 (1.8-7.8); NEUTROPHILS % (AUTO) 78 % (42-75); PLATELET COUNT 320 10^3/uL (130-400); RED CELL DISTRIBUTION WIDTH 12.9 % (10.0-14.5); WHITE BLOOD COUNT 5.9 10^3/uL (4.3-11.0)
[2018-11-30 19:56] LABS: BILIRUBIN,URINE NEGATIVE (NEGATIVE); CLARITY,URINE CLEAR; COLOR,URINE YELLOW; GLUCOSE, URINE (UA) NEGATIVE (NEGATIVE); KETONES,URINE 3+ (NEGATIVE); LEUKOCYTE ESTERASE ,URINE NEGATIVE (NEGATIVE); NITRITE,URINE NEGATIVE (NEGATIVE); PH,URINE 7 (5-9); PROTEIN,URINE 1+ (NEGATIVE); UROBILINOGEN,URINE NORMAL (NORMAL)
--- NOTE | 2018-11-30 19:59 | ED Syncope ---
General Chief Complaint: Dizziness/Syncope Stated Complaint: PASSED OUT/DIZZINESS Source of Information: Patient Exam Limitations: No Limitations History of Present Illness Date Seen by Provider: Nov 30, 2018 Time Seen by Provider: 19:28 Initial Comments The patient presents to ER by private conveyance with her daughter and son-in- law and chief complaint that they found her in her bed. She says for the past few days she's been feeling ill with some nausea for the past week. She's vomited once yesterday or the day before. She also is having increasing pain in her back. She recently had a laminectomy a few weeks ago and was having pain radiating down her right buttock which is her symptoms just worse. She called Dr. MIGUEL the surgeon and he called out some tramadol and Robaxin as well as put her on steroids. She took her first dose this morning and then went and sat in her chair. She woke up to her dog licking her face that she was laying on the floor in front of her chair on her back. She let the dog out and then went and laid down. She says she woke up sometime later and brought the dog back in and laid down again and doesn't remember anything else. She still having some nausea, back pain. No abdominal pain or but she is now having a cough for the past couple days and some pain up under her right rib. She's had some subjective chills but no objective fever. No increased swelling. No history of heart disease. She does take aspirin daily. She also recently finished a course of acyclovir for her shingles in her right ear canal. She has a history of asthma but that has not been bothering her lately. She denies any shortness of breath or wheezing. She has had an occasional nonproductive cough. Allergies and Home Medications Allergies Coded Allergies: Horse/Equine Containing Products (Verified Allergy, Unknown, 07/22/09) Sulfa (Sulfonamide Antibiotics) (Verified Allergy, Unknown, 07/22/09) penicillin G (Verified Allergy, Unknown, 07/22/09) clopidogrel bisulfate (Unverified Adverse Reaction, Intermediate, SEVERE BLEEDING, 01/19/11) Uncoded Allergies: TB INGRIS TEST (Allergy, Unknown, 03/15/16) Home Medications Albuterol 17 Gm Aerosol, 2 PUFF IH PRN, (Reported) Ascorbic Acid 250 Mg Tab, 500 MG PO DAILY, (Reported) Aspirin 81 Mg Tabec, 81 MG PO DAILY, (Reported) Butalb/Acetaminophen/Caffeine 1 Each Tablet, 1 EACH PO Q6HR PRN, (Reported) Cefuroxime Axetil 250 Mg Tablet, 250 MG PO BID Prescribed by: DARRELL ASCENCIO on 03/15/16 1021 Celecoxib 200 Mg Capsule, 1 TAB PO DAILY, (Reported) Cetirizine Hcl 10 Mg Tablet, 10 MG PO DAILY, (Reported) Cyclobenzaprine Hcl 5 Mg Tablet, 1.5 EACH PO PRN, (Reported) Folic Acid 0.4 Mg Tablet, 800 EACH PO DAILY, (Reported) Ibuprofen 200 Mg Tab, 200 MG PO ONCE, (Reported) Montelukast Sodium 10 Mg Tab, 10 MG PO HS, (Reported) Multivitamins 1 Tab Tablet, 1 TAB PO DAILY, (Reported) Paroxetine Hcl 10 Mg Tablet, 10 MG PO DAILY, (Reported) Patient Home Medication List Home Medication List Reviewed: Yes Review of Systems Constitutional: No chills, No diaphoresis EENTM: No ear discharge, No hearing loss, No ear pain Respiratory: No short of breath Cardiovascular: No chest pain, No edema Gastrointestinal: No abdominal pain, No constipation, No diarrhea; nausea; No vomiting Genitourinary: No decreased output, No dysuria, No frequency Control/STD Prophylaxis: None Musculoskeletal: see HPI, back pain; No joint pain Past Lndooxr-Gbtlib-Fbobwd Hx Patient Social History Alcohol Use: Denies Use Recreational Drug Use: No Smoking Status: Never a Smoker Recent Foreign Travel: No Contact w/Someone Who Travel: No Recent Hopitalizations: Yes Past Medical History Surgeries: Yes (HYST,APPY,CARPAL TUNNEL,KNEE SCOPE) Respiratory: Yes (CHRONIC COUGH) COPD Cardiac: Yes Hypertension Reproductive Disorders: Yes (HX.FIBROIDS-HYSTERECTOMY) Musculoskeletal: Yes (CHRONIC STIFF NECK) Endocrine: No Psychosocial: No Integumentary: Yes (shingles) Blood Disorders: No Family Medical History No Pertinent Family Hx Physical Exam Vital Signs Vital Signs - First Documented 11/30/18 19:09 Temp 96.9 Pulse 85 Resp 19 B/P (MAP) 167/83 (111) Capillary Refill : Height, Weight, BMI Height: 5'2.00" Weight: 165lbs. 0.0oz. 74.754869fi; 31.0 BMI Method:Stated General Appearance: Mild Distress, Other (mildly disheveled) HEENT: PERRL/EOMI, TMs Normal, Normal ENT Inspection, Pharynx Normal, Moist Mucous Membranes, Other (negative for hemotympanum, duvall sign or raccoon eyes. ) Neck: Full Range of Motion, Normal Inspection, Non Tender Cardiovascular: Regular Rate, Rhythm, No Edema, No JVD, No Murmur, Normal Peripheral Pulses Respiratory: Chest Non Tender, Lungs Clear, Normal Breath Sounds, No Accessory Muscle Use, No Respiratory Distress Gastrointestinal: Normal Bowel Sounds, No Organomegaly, Non Tender, Soft Back: Normal Inspection, No Vertebral Tenderness, Other (right lower back sciatic pain elicited) Extremities: Normal Capillary Refill, Normal Inspection, Normal Range of Motion , Non Tender, No Calf Tenderness (no swelling or erythema), No Pedal Edema Neurologic/Psychiatric: Alert, Oriented x3, No Motor/Sensory Deficits, Other ( anxious affect) Cranial Nerves: Normal Hearing, Normal Speech, PERRL Coordination/Gait: Normal Finger to Nose Motor/Sensory: No Motor Deficit, No Sensory Deficit, No Pronator Drift Skin: Normal Color, Warm/Dry Focused Exam Lactate Level 11/30/18 19:24: Lactic Acid Level 1.75 Lactic Acid Level Laboratory Tests Test 11/30/18 19:24 Lactic Acid Level 1.75 MMOL/L (0.50-2.00) Progress/Results/Core Measures Results/Orders Lab Results Laboratory Tests Test 11/30/18 19:21 11/30/18 19:24 11/30/18 19:48 11/30/18 21:29 Range/Units Glucometer 162 H 70-110 MG/DL White Blood Count 5.9 4.3-11.0 10^3/uL Red Blood Count 4.35 4.35-5.85 10^6/uL Hemoglobin 14.7 11.5-16.0 G/DL Hematocrit 41 35-52 % Mean Corpuscular Volume 95 80-99 FL Mean Corpuscular Hemoglobin 34 25-34 PG Mean Corpuscular Hemoglobin Concent 36 32-36 G/DL Red Cell Distribution Width 12.9 10.0-14.5 % Platelet Count 320 130-400 10^3/uL Mean Platelet Volume 9.3 7.4-10.4 FL Neutrophils (%) (Auto) 78 H 42-75 % Lymphocytes (%) (Auto) 17 12-44 % Monocytes (%) (Auto) 5 0-12 % Eosinophils (%) (Auto) 0 0-10 % Basophils (%) (Auto) 0 0-10 % Neutrophils # (Auto) 4.6 1.8-7.8 X 10^3 Lymphocytes # (Auto) 1.0 1.0-4.0 X 10^3 Monocytes # (Auto) 0.3 0.0-1.0 X 10^3 Eosinophils # (Auto) 0.0 0.0-0.3 10^3/uL Basophils # (Auto) 0.0 0.0-0.1 10^3/uL Prothrombin Time 12.9 12.2-14.7 SEC INR Comment 1.0 0.8-1.4 Activated Partial Thromboplast Time 36 H 24-35 SEC Sodium Level 141 135-145 MMOL/L Potassium Level 3.6 3.6-5.0 MMOL/L Chloride Level 104 98-107 MMOL/L Carbon Dioxide Level 24 21-32 MMOL/L Anion Gap 13 5-14 MMOL/L Blood Urea Nitrogen 10 7-18 MG/DL Creatinine 0.79 0.60-1.30 MG/DL Estimat Glomerular Filtration Rate > 60 BUN/Creatinine Ratio 13 Glucose Level 148 H 70-105 MG/DL Lactic Acid Level 1.75 0.50-2.00 MMOL/L Calcium Level 10.4 H 8.5-10.1 MG/DL Corrected Calcium 8.5-10.1 MG/DL Total Bilirubin 0.4 0.1-1.0 MG/DL Aspartate Amino Transf (AST/SGOT) 35 H 5-34 U/L Alanine Aminotransferase (ALT/SGPT) 35 0-55 U/L Alkaline Phosphatase 105 40-136 U/L Troponin I < 0.028 < 0.028 <0.028 NG/ML Total Protein 7.8 6.4-8.2 GM/DL Albumin 4.6 H 3.2-4.5 GM/DL Urine Color YELLOW Urine Clarity CLEAR Urine pH 7 5-9 Urine Specific [place] 1.010 L 1.016-1.022 Urine Protein 1+ H NEGATIVE Urine Glucose (UA) NEGATIVE NEGATIVE Urine Ketones 3+ H NEGATIVE Urine Nitrite NEGATIVE NEGATIVE Urine Bilirubin NEGATIVE NEGATIVE Urine Urobilinogen NORMAL NORMAL MG/DL Urine Leukocyte Esterase NEGATIVE NEGATIVE Urine RBC (Auto) 2+ H NEGATIVE Urine RBC 2-5 H /HPF Urine WBC RARE /HPF Urine Squamous Epithelial Cells 0-2 /HPF Urine Crystals NONE /LPF Urine Bacteria NEGATIVE /HPF Urine Casts NONE /LPF Urine Mucus NEGATIVE /LPF Urine Culture Indicated NO Micro Results Microbiology 11/30/18 Influenza Types A,B Antigen (ELIU) - Final, Complete My Orders Orders - HITESH LY Cbc With Automated Diff (11/30/18 19:39) Comprehensive Metabolic Panel (11/30/18 19:39) Blood Culture (11/30/18 19:39) Sputum Culture (11/30/18:39) Urinalysis (11/30/18:39) Urine Culture (11/30/18:39) Protime With Inr (11/30/18:39) Partial Thromboplastin Time (11/30/18:39) Chest 1 View, Ap/Pa Only (11/30/18:39) Saline Lock/Iv-Start (11/30/18 19:39) Saline Lock/Iv-Start (11/30/18 19:39) Ekg Tracing (11/30/18:39) Troponin I (11/30/18:39) Vital Signs Adult Sepsis Patie Q15M (11/30/18 19:39) Ondansetron Injection (Zofran Injectio (11/30/18 19:45) O2 (11/30/18 19:39) Remove Rings In Anticipation O (11/30/18:39) Lactic Acid Analyzer (11/30/18:39) Influenza A And B Antigens (11/30/18 19:39) Cefepime Injection (Maxipime Injection) (11/30/18 19:45) Saline Lock/Iv-Start (11/30/18 19:39) Ns Iv 500 Ml (Sodium Chloride 0.9%) (11/30/18 19:39) Ns Iv 1000 Ml (Sodium Chloride 0.9%) (11/30/18 19:39) Ct Head/Cervical Spine Wo (11/30/18 19:39) Water (Sterile) For Injection (Sterile W (11/30/18 19:46) Aspirin Chewable Tablet (Baby Aspirin Ch (11/30/18 20:00) Lumbar Spine - 2-3 Views (11/30/18 20:15) Troponin I (11/30/18 21:30) Ketorolac Injection (Toradol Injection) (11/30/18 21:15) Acetaminophen Tablet (Tylenol Tablet) (11/30/18 21:15) Medications Given in ED Current Medications Medications Dose Ordered Sig/Susan Route Start Time Stop Time Status Last Admin Dose Admin Acetaminophen 1,000 mg ONCE ONCE PO 11/30/18 21:15 11/30/18 21:16 DC 11/30/18 21:28 1,000 MG Aspirin 324 mg ONCE ONCE PO 11/30/18 20:00 11/30/18 20:01 DC 11/30/18 21:00 324 MG Cefepime HCl 1000 mg/Sodium Chloride 50 ml @ 100 mls/hr ONCE ONCE IV 11/30/18 19:45 11/30/18 20:14 DC 11/30/18 19:54 100 MLS/HR Ketorolac Tromethamine 30 mg ONCE ONCE IVP 11/30/18 21:15 11/30/18 21:16 DC 11/30/18 21:28 30 MG Ondansetron HCl 4 mg PRN PRN IV 11/30/18 19:45 11/30/18 19:54 DC 11/30/18 19:54 4 MG Sodium Chloride 500 ml @ 0 mls/hr Q0M ONCE IV 11/30/18 19:39 11/30/18 19:42 DC 11/30/18 21:01 999 MLS/HR Sodium Chloride 1,000 ml @ 0 mls/hr Q0M ONCE IV 11/30/18 19:39 11/30/18 19:42 DC 11/30/18 19:53 999 MLS/HR Sterile Water 10 ml @ ud STK-MED ONCE .ROUTE 11/30/18 19:46 11/30/18 19:51 DC 11/30/18 19:54 2 MLS/HR Vital Signs/I&O 11/30/18 19:09 Temp 96.9 Pulse 85 Resp 19 B/P (MAP) 167/83 (111) Progress Progress Note #1: Time: 20:06 Progress Note Suspect strongly that the combination of her Robaxin and tramadol made her very drowsy and caused her fall and subsequent drowsiness. There may be underlying infection contributing to her iatrogenic delirium so were going to do some blood , urine, chest x-rays. Since she's describing some right under the breast rib pain is reproducible to direct palpation we did an examination and found no evidence of shingles or other rash overlying the site. However we will give her some aspirin after she has a negative head CT and get troponin and EKG. ED ACS score is 10 points. Low risk by the EDACS Score. If the patient also has : (1) EKG without new ischemic changes and (2) negative initial and 2-hour troponins, then this patient is safe for discharge to early outpatient follow- up investigation (or proceed to earlier inpatient testing). If EKG with ischemic changes or positive troponin, they are not low risk and require normal risk stratification. Progress Note #2: Time: 20:49 Progress Note The patient's workup reveals that she is a little dehydrated but the most likely source of her problems today are becoming drowsy on the Robaxin and tramadol. Encourage that she strongly use caution with the medications the future may be cutting them in half recently quarters. Not using them together. She has already received a 20 L/kg bolus of fluids which should address her mild dehydration. We will let her have her aspirin and offer her some Toradol for her sciatic pain. We'll also obtain a delta troponin at 2130. The source of her left rib pain is probably due to her sliding out of a chair/fall. No acute fractures are observed. Progress Note #3: Time: 21:10 Progress Note Patient's feeling much better and is much brighter affect talking and feeling better ready go home. Plan to repeat a troponin just to be safe since she is having some right-sided chest wall pain in 20 minutes. The patient's daughter has expressed concerns about the patient going home but the patient is able to ambulate and wants to go home. The daughter has offered the patient come home and stay the night with the daughter but the patient has declined. At this time the patient's symptoms have resolved and her symptoms would best be explained by the Robaxin and tramadol. No evidence of infection, bleed exist. There is no neuro deficits on examination or reexamination. The patient's received most of the 1500 cc of fluids so she is no longer going to be dehydrated. We are giving her some Toradol and Tylenol for her headache and lumbago which is chronic. The daughter is mentioned several times and nursing staff that she does not feel comfortable with the patient going home but since the patient does not want to go home with the daughter and wants to go home to her own house the daughter says that there is no secondhand beds she can stay with her mom and the daughter is mentioned she still has at least 3 hours of work she needs to do and just wants us to admit her to somebody can watch her. The patient stated she does not want her daughter to stay with her tonight. At this time I think it is still appropriate to allow her to go home if the rest of her laboratory examination is unremarkable. Initial ECG Impression Date: Nov 30, 2018 Initial ECG Impression Time: 19:13 Initial ECG Rate: 82 Initial ECG Rhythm: Normal Sinus Initial ECG Intervals: Normal Initial ECG Impression: Normal Comment No ST segment elevation or depression. Diagnostic Imaging Diagonstic Imaging: Xray Plain Films/CT/US/NM/MRI: chest (1v) Comments NAME: [facility] REC#: [id number] PHYSICIAN: HITESH LY MD CC: JAMES NEWTON MD; HITESH LY Page 1 of 1 RADIOLOGY REPORT [facility] [place] [place] CC: JAMES NEWTON MD; HITESH LY Page 1 of 1 RADIOLOGY REPORT NAME: [facility] REC#: [id number] PT STATUS: REG ER : 1940 PHYSICIAN: HITESH LY MD ADMIT DATE: 11/30/18/ER Signed Date of Exam: 11/30/18 CHEST 1 VIEW, AP/PA ONLY CHEST 1 VIEW, AP/PA ONLY Indication: Fall, trauma. Comparison: 11/02/2018 Findings: No focal airspace disease in the visualized lungs. Please note that the posterior lower lobes are poorly evaluated by portable radiography. No pleural effusion or pneumothorax. Normal cardiomediastinal silhouette. Impression: No acute cardiopulmonary process by portable radiography. Dictated by: Dictated on workstation # [id number] Dict: 11/30/182022 Trans: 11/30/182023 Interpreted by: JAMES NEWTON MD Electronically signed by: JAMES NEWTON MD 11/30/182023 Reviewed: Reviewed by Ia Diagonstic Imaging: Xray Plain Films/CT/US/NM/MRI: other (lumbar spine 2-3 views) Comments NAME: [facility] REC#: [id number] PT STATUS: REG ER : 1940 PHYSICIAN: HITESH LY MD ADMIT DATE: 11/30/18/ER Draft Date of Exam:11/30/18 LUMBAR SPINE - 2-3 VIEWS INDICATION: Back pain after fall. COMPARISON: Lumbar spine radiographs of 12/07/2010. TECHNIQUE: Three views of the lumbar spine. FINDINGS: There is dextroscoliosis of the lumbar spine with apex at L2. There are asymmetric degenerative changes along the left concave margin with large lateral bridging osteophytes at L1-L2. Allowing for the degenerative height loss at the superior endplate of L2, the remainder of the vertebral bodies are normal in stature without compression deformity. SI joints are grossly normal. No displaced fracture in the sacrum ala. IMPRESSION: 1. No radiographic features of acute compression fracture or traumatic malalignment. 2. Dextroscoliosis of the lumbar spine with associated asymmetric degenerative changes along the left concave curvature. Dictated on workstation # [id number] Dict: 11/30/182038 Trans: 11/30/182041 PJE [id number] Interpreted by: JAMES NEWTON MD Electronically signed by: Reviewed: Reviewed by Ia Diagonstic Imaging: CT (noncontrast) Plain Films/CT/US/NM/MRI: c-spine, head Comments No intracranial hemorrhage, tumor, mass effect or midline shift. No calvarial fracture. No C-spine acute osseous abnormality, subluxation or fracture. Degenerative changes noted. [facility] [place] [place] NAME: [facility] REC#: [id number] PT STATUS: REG ER : 1940 PHYSICIAN: HITESH LY MD ADMIT DATE: 11/30/18/ER Draft Date of Exam:11/30/18 CT HEAD/CERVICAL SPINE WO PROCEDURE: CT head and CT cervical spine without contrast. TECHNIQUE: Multiple contiguous axial images were obtained through the brain and cervical spine without the use of intravenous contrast. Sagittal and coronal reformations through the cervical spine were then performed. INDICATION: Fall with altered mental status. Complaints of head and neck pain. COMPARISON: CT head of 11/02/2018. FINDINGS: CT head: No hyperdense hemorrhage or space-occupying mass. No hydrocephalus or midline shift. Lang-white matter differentiation is preserved. Global atrophy is unchanged. Mild periventricular white matter hypoattenuation is similar and compatible with chronic microvascular ischemic disease. Chronic opacification of the right sphenoid sinus with air-fluid levels again noted. Mastoid air cells are clear. The orbits are normal in appearance. CT cervical spine: No acute fracture or traumatic malalignment. Multilevel cervical spondylosis results in varying degrees of neuroforaminal narrowing. There are also multiple foci of mild spinal stenosis. The lung apices are clear. No cervical lymphadenopathy. IMPRESSION: 1. No acute intracranial process. 2. No fracture or traumatic malalignment in the cervical spine. 3. Stable sphenoid sinus disease. Dictated on workstation # [id number] Dict: 11/30/182023 Trans: 11/30/182030 [facility] [id number] Interpreted by: JAMES NEWTON MD Electronically signed by: Reviewed: Reviewed by Me Departure Impression Primary Impression: Adverse drug reaction Qualified Codes: T50.905A - Adverse effect of unspecified drugs, medicaments and biological substances, initial encounter Additional Impressions: Fall Qualified Codes: W19.XXXA - Unspecified fall, initial encounter Rib pain on right side Lumbago with sciatica, right side Qualified Codes: M54.41 - Lumbago with sciatica, right side; G89.29 - Other chronic pain Disposition: 01 HOME, SELF-CARE Condition: Stable Departure-Patient Inst. Decision time for Depature: 22:06 Referrals: FILIPE CUEVAS MD (PCP/Family) Primary Care Physician Patient Instructions: Preventing Falls in the Older Adult Add. Discharge Instructions: Discontinue or severely reduce the use of your Toradol and Robaxin as they can cause drowsiness and increase her risk of falls. Drink more fluids for the next couple days. Use ibuprofen 800 mg or 2 Naprosyn twice a day for your back pain. Follow-up with primary care or orthopedics in the clinic. All discharge instructions reviewed with patient and/or family. Voiced understanding. HITESH LY Nov 30, 2018 19:59
[2018-11-30] MEDS ORDERED: ASPIRIN 81 MG CHEW (CHILDREN'S ASA) PO ONE (20:00)
[2018-11-30 20:07] LABS: PROTHROMBIN TIME PATIENT 12.9 SEC (12.2-14.7)
[2018-11-30 20:12] LABS: ALANINE AMINOTRANSFERASE 35 U/L (0-55); ALBUMIN 4.6 GM/DL (3.2-4.5); ALKALINE PHOSPHATASE 105 U/L (40-136); BILIRUBIN,TOTAL 0.4 MG/DL (0.1-1.0); BUN/CREATININE RATIO 13; CALCIUM 10.4 MG/DL (8.5-10.1); CARBON DIOXIDE 24 MMOL/L (21-32); CHLORIDE 104 MMOL/L (98-107); CREATININE SERUM 0.79 MG/DL (0.60-1.30); GFR ESTIMATED > 60; GLUCOSE 148 MG/DL (70-105); POTASSIUM 3.6 MMOL/L (3.6-5.0); SODIUM 141 MMOL/L (135-145); TOTAL PROTEIN 7.8 GM/DL (6.4-8.2)
[2018-11-30 20:17] LABS: WBC,URINE RARE /HPF
[2018-11-30 20:18] LABS: BACTERIA,URINE NEGATIVE /HPF; SQUAMOUS EPITHELIAL CELL,UR 0-2 /HPF
--- NOTE | 2018-11-30 20:26 | Diagnostic Imaging Report ---
CHEST 1 VIEW, AP/PA ONLY Indication: Fall, trauma. Comparison: 11/02/2018 Findings: No focal airspace disease in the visualized lungs. Please note that the posterior lower lobes are poorly evaluated by portable radiography. No pleural effusion or pneumothorax. Normal cardiomediastinal silhouette. Impression: No acute cardiopulmonary process by portable radiography. Dictated by: Dictated on workstation # [id number]
--- NOTE | 2018-11-30 20:32 | Diagnostic Imaging Report ---
PROCEDURE: CT head and CT cervical spine without contrast. TECHNIQUE: Multiple contiguous axial images were obtained through the brain and cervical spine without the use of intravenous contrast. Sagittal and coronal reformations through the cervical spine were then performed. INDICATION: Fall with altered mental status. Complaints of head and neck pain. COMPARISON: CT head of 11/02/2018. FINDINGS: CT head: No hyperdense hemorrhage or space-occupying mass. No hydrocephalus or midline shift. Lang-white matter differentiation is preserved. Global atrophy is unchanged. Mild periventricular white matter hypoattenuation is similar and compatible with chronic microvascular ischemic disease. Chronic opacification of the right sphenoid sinus with air-fluid levels again noted. Mastoid air cells are clear. The orbits are normal in appearance. CT cervical spine: No acute fracture or traumatic malalignment. Multilevel cervical spondylosis results in varying degrees of neuroforaminal narrowing. There are also multiple foci of mild spinal stenosis. The lung apices are clear. No cervical lymphadenopathy. IMPRESSION: 1. No acute intracranial process. 2. No fracture or traumatic malalignment in the cervical spine. 3. Stable sphenoid sinus disease. Dictated by: Dictated on workstation # [id number]
--- NOTE | 2018-11-30 20:43 | Diagnostic Imaging Report ---
INDICATION: Back pain after fall. COMPARISON: Lumbar spine radiographs of 12/07/2010. TECHNIQUE: Three views of the lumbar spine. FINDINGS: There is dextroscoliosis of the lumbar spine with apex at L2. There are asymmetric degenerative changes along the left concave margin with large lateral bridging osteophytes at L1-L2. Allowing for the degenerative height loss at the superior endplate of L2, the remainder of the vertebral bodies are normal in stature without compression deformity. SI joints are grossly normal. No displaced fracture in the sacrum ala. IMPRESSION: 1. No radiographic features of acute compression fracture or traumatic malalignment. 2. Dextroscoliosis of the lumbar spine with associated asymmetric degenerative changes along the left concave curvature. Dictated by: Dictated on workstation # [id number]
[2018-11-30] MEDS ORDERED: PROCHLORPERAZINE 10 MG/2ML INJ (COMPAZINE) IV ONE (21:15)
[2018-11-30] MEDS ORDERED: ACETAMINOPHEN 500 MG TAB (TYLENOL) PO ONE (21:15)
[2018-11-30] MEDS ORDERED: KETOROLAC 30 MG/ML VIAL IVP ONE (21:15)
[2018-11-30 22:15] VITALS: BP 146/82
== END 2018-11-30 22:18 | disposition home or self-care (01) ==
LOC: EDUNIT# 18:59 → ER 19:01
DX: R42 Dizziness and giddiness (principal); T40.4X5A Adverse effect of other synthetic narcotics, initial encounter; T42.8X5A Adverse effect of antiparkinsonism drugs and other central muscle-tone depressants, initial encounter; M54.41 Lumbago with sciatica, right side; G89.29 Other chronic pain; J44.9 Chronic obstructive pulmonary disease, unspecified; I10 Essential (primary) hypertension; Z90.710 Acquired absence of both cervix and uterus; Z88.2 Allergy status to sulfonamides; Z88.0 Allergy status to penicillin; Z79.82 Long term (current) use of aspirin; W19.XXXA Unspecified fall, initial encounter
CPT/HCPCS: 36415; 70450; 71045; 72100; 72125; 80053; 81000; 82962; 83605; 84484; 85025; 85610; 85730; 87040; 87088; 87804; 93005

== ENCOUNTER 2019-04-11 05:33 | Outpatient (CLI) | payer MEDICARE, BC ==
[~2019-04-11] VITALS: Ht 157.5 cm; Wt 78.9 kg
[2019-04-11] MEDS ORDERED: POTA99TA21 PO (11:02)
[2019-04-11] MEDS ORDERED: GABA-488 PO (11:02)
[2019-04-11] MEDS ORDERED: PYRI100T2 PO (11:02)
[2019-04-11] MEDS ORDERED: ACET-2267 PO (11:02)
[2019-04-11] MEDS ORDERED: CYAN50008 PO (11:02)
[2019-04-11] MEDS ORDERED: BACL20TA PO (11:02)
[2019-04-11] MEDS ORDERED: RANI-515 PO (11:02)
[2019-04-11] MEDS ORDERED: LORA10TA7 PO (11:02)
[2019-04-11] MEDS ORDERED: PARO-49 PO (11:02)
[2019-04-11] MEDS ORDERED: L.AC1CAP6 PO (11:02)
[2019-04-11] MEDS ORDERED: GEMF600T8 PO (11:02)
[2019-04-11] MEDS ORDERED: CHOL200025 PO (11:02)
[2019-04-11] MEDS ORDERED: AMLO5TAB9 PO (11:02)
[2019-04-11] MEDS ORDERED: VALA1000 PO (11:02)
[2019-04-11] MEDS ORDERED: ASCO500T7 PO (11:12)
[2019-04-11] MEDS ORDERED: ASPI-999 PO (11:12)
[2019-04-11] MEDS ORDERED: VITA400C60 PO (11:12)
[2019-04-11] MEDS ORDERED: BUTA1TAB9 PO (11:12)
[2019-04-11] MEDS ORDERED: FOLI0.4T2 PO (11:12)
[2019-04-11] MEDS ORDERED: RT-ALBUINH IH (11:12)
[2019-04-11] MEDS ORDERED: MULT1CAP27 PO (11:12)
[2019-04-11] MEDS ORDERED: ZINC50TA51 PO (11:12)
[2019-04-11] MEDS ORDERED: MONT10TA24 PO (11:12)
[2019-04-11] MEDS ORDERED: BETA10003 PO (11:12)
[2019-04-11] MEDS ORDERED: CELE-63 PO (11:12)
== END 2019-04-11 11:40 | disposition home or self-care (01) ==
LOC: PREOP 05:33
PROVIDERS: ATTEND Orthopaedic Surgery Orthopaedic Surgery of the Spine
DX: Z01.818 Encounter for other preprocedural examination (principal)

== ENCOUNTER 2019-04-15 06:01 | Day surgery (SDC) | payer MEDICARE, BC ==
[~2019-04-15] VITALS: Ht 157.5 cm; Wt 78.1 kg
[2019-04-15] VITALS (10 sets, daily range): BP systolic 116–167; BP diastolic 76–95
[~2019-04-15 06:01] MED LIST changes: +ACET-2267 PO; +AMLO5TAB9 PO; +ASCO500T7 PO; +ASPI-999 PO; +BACL20TA PO; +BETA10003 PO; +BUTA1TAB9 PO; +CELE-63 PO; +CHOL200025 PO; +CYAN50008 PO; +GABA-488 PO; +GEMF600T8 PO; +L.AC1CAP6 PO; +LORA10TA7 PO; +MONT10TA24 PO; +MULT1CAP27 PO; +PARO-49 PO; +POTA99TA21 PO; +PYRI100T2 PO; +RANI-515 PO; +RT-ALBUINH IH; +VALA1000 PO; +VITA400C60 PO; +ZINC50TA51 PO
[2019-04-15] MEDS ORDERED: ONDANSETRON 4 MG/2 ML (SDV) Z0FRAN ONE ×2 (06:34→09:22)
[2019-04-15] MEDS ORDERED: SEVOFLURANE (ULTANE) 15 ML INHAL SOLN ONE (06:34)
[2019-04-15] MEDS ORDERED: fentaNYL INJECTION 100 MCG/2 ML AMP ONE ×2 (06:34→08:17)
[2019-04-15] MEDS ORDERED: proPOfol 200 MG/20 ML (DIPRIVAN) VIAL IV ONE ×3 (06:34→08:24)
[2019-04-15] MEDS ORDERED: DEXAMETHASONE 10 MG/ML (DECADRON) 1 ML VIAL ONE (06:34)
[2019-04-15] MEDS ORDERED: LIDOCAINE PF 2% 5 ML (XYLOCAINE) VIAL ONE (06:34)
[2019-04-15] MEDS ORDERED: SUCCINYLCHOLINE INJ 100 MG/5 ML SYR ONE (06:36)
[2019-04-15] MEDS ORDERED: ceFAZolin 2 GM/50 ML NS 50 ML IV ONE (06:45)
[2019-04-15] MEDS ORDERED: GENTAMICIN 40 MG/ML 2 ML INJ SDV ONE (06:46)
[2019-04-15] MEDS ORDERED: BUP/EPI 0.5% 1:200,000 (SENSORCAINE) 30 ML VIAL ONE (06:46)
[2019-04-15] MEDS ORDERED: VANCOMYCIN 1000 MG/VIAL ONE (06:46)
[2019-04-15] MEDS ORDERED: MELA1TAB27 PO (06:48)
[2019-04-15] MEDS: LACTATED RINGERS 1,000 ML IV PRN ×2 (06:49→08:35)
[2019-04-15] MEDS ORDERED: THROMBIN 5,000 UNIT (RECOTHROM) VIAL ONE (07:00)
--- NOTE | 2019-04-15 08:04 | NUR ---
Initial visit with pt and her Daughter, Gi. Pt enjoy an active life, still drives and works. She has no spiritual affiliation. Offered comforting presence as pt shared feeling nervous about her procedure. She expressed appreciation for our visit, and states she is hopeful of a positive outcome.
[2019-04-15] MEDS ORDERED: ROCURONIUM 10 MG/ML 5 ML SYRINGE IV ONE (08:15)
--- NOTE | 2019-04-15 08:54 | Progress Note-Post Operative ---
Post-Operative Progess Note Surgeon (s)/Lap Regulator (s) Surgeon MEHUL MIGUEL MD Lap Regulator: KRISTIAN Cotton Pre-Operative Diagnosis LUMBAGO Post-Operative Diagnosis Same Procedure & Operative Findings Date of Procedure 04/15/19 Procedure Performed/Findings Placement of PSCS via laminectomy Anesthesia Type GETA Estimated Blood Loss Estimated blood loss (mL): min Specimens/Packing Specimens Removed none MEHUL MIGUEL MD Apr 15, 2019 08:54
[2019-04-15] MEDS ORDERED: PNNLX50T PO (08:56)
[2019-04-15] MEDS ORDERED: HYDROmorphone 2 MG/ML VIAL (DILAUDID) IV ONE (09:30)
[2019-04-15] MEDS ORDERED: ONDANSETRON 4 MG/2 ML (SDV) Z0FRAN IVP PRN (09:30)
--- NOTE | 2019-04-15 09:46 | Diagnostic Imaging Report ---
INDICATION: Back pain. FINDINGS: A single fluoroscopic image of the thoracic spine was obtained. 29 seconds of fluoro was utilized. A spinal stimulator overlies the lower thoracic spine at approximately T9-10. IMPRESSION: Intraoperative fluoroscopy as described. Dictated by: Dictated on workstation # [id number]
--- NOTE | 2019-04-15 10:00 | NUR ---
THIS RN RECEIVED BEDSIDE REPORT FROM RACHEL VERDE AT THIS TIME. REPORTED THAT PATIENT COMPLAINS RANDOMLY OF DIFFERENT AREAS TO HAVE DISCOMFORT (LEG/KNEE/STOMACH/NEED URINATE) AND THAT SHE HAD ANESTHESIA CHECK PATIENT X2 THIS RN AND RACHEL VERDE ASSESSED PATIENTS ABDOMEN AND IT IS NON TENDER AND SOFT WITH NO SOUNDS OF GAS. PATIENT ARRIVED TO ROOM INFORMING NEEDS TO URINATE AND THIS RN AND AIDE PLACE ON BSC, PATIENT SAT AND URINATED OFF/ON FOR AWHILE AND STATED SHE RECEIVED SOME RELIEF FROM SITTING. THIS RN HAD RAEGAN FOSTER CHECK ON PATIENTS COMPLAINTS OF GAS LIKE PRESSURE IN ABDOMEN. PATIENT REPORTED SHE HAD BELCHED A FEW TIMES AND REPORTS NO OTHER SYMPTOMS WITH VSS. AT 1105 PATIENT COMPLAINS THAT SOMETHING HAS TO BE WRONG SO THIS RN PHONED LÓPEZ PARSONS AND INFORMED OF PATIENT'S GAS LIKE PRESSURE IN ABDOMEN AND THAT ITS MAINLY ON RIGHT SIDE, NO SYMPTOMS OF NUMBNESS OR TINGLING REPORTED WITH VSS. LÓPEZ PARSONS GAVE TELEPHONE ORDER FOR ZOFRAN 4MG PO AND A SIMETHICONE TABLET, STATED IT COULD POSSIBLY BE THE LEAD ON RIGHT SIDE. NO OTHER ORDERS GIVEN. PATIENT HAS BEEN ABLE TO URINATE SEVERAL TIMES. THIS RN INFORMED THAT PATIENT NEEDS TO AMBULATE TO GETS THINGS MOVING FOR RELIEF.
--- NOTE | 2019-04-15 11:07 | Anesthesia-General Post-Op ---
General Patient Condition Mental Status/LOC: Same as Preop Cardiovascular: Satisfactory Nausea/Vomiting: Absent Respiratory: Satisfactory Pain: Uncontrolled Complications: Absent Post Op Complications Complications complaining for diffuse abdominal pain. similar to gas pain. dr lam notified Follow Up Care/Instructions Patient Instructions None needed. Anesthesia/Patient Condition Patient Condition Patient is doing well, no complaints, stable vital signs, no apparent adverse anesthesia problems. No complications reported per nursing. CRISTIAN GRIGGS CRNA Apr 15, 2019 11:07
[2019-04-15] MEDS ORDERED: ONDANSETRON 4 MG (ZOFRAN) ORAL DISSOLVE TAB PO ONE (11:15)
[2019-04-15] MEDS ORDERED: SIMETHICONE 80 MG (MYLICON) CHEW PO ONE (11:15)
--- NOTE | 2019-04-15 13:27 | OPERATIVE REPORT ---
DATE OF SERVICE: 04/15/2019 PREOPERATIVE DIAGNOSES: Chronic lumbago, lumbar radiculopathy, post laminectomy syndrome. POSTOPERATIVE DIAGNOSES: Chronic lumbago, lumbar radiculopathy, post laminectomy syndrome. PROCEDURE PERFORMED: T9-T10 level laminectomy for placement of paddle electrode for spinal cord stimulation, left-sided battery placement for spinal cord stimulator. DATE AND TIME OF SURGERY: Please see anesthesia record. IMPLANTS USED: [employer] 7 battery and Penta lead. SURGEON: Mehul Mark MD GUEST RELATIONS OFFICER: LÓPEZ Cotton. ROLE OF FINGERPRINT TECHNICIAN: Aid in retraction of the procedure, aid in implantation, instrumentation, wound closure. ANESTHESIA: General endotracheal. ESTIMATED BLOOD LOSS: Minimal. INTRAVENOUS FLUIDS: Please see anesthesia record. ANTIBIOTICS: Ancef. COMPLICATIONS: None. SPECIMENS: None. INDICATIONS FOR PROCEDURE: The patient is an 78-year-old female with severe back pain, previous decompression, positive trial, desires permanent placement. DESCRIPTION OF PROCEDURE: The patient was taken to the preoperative holding area and brought back to the operative suite. After adequate induction of general anesthesia, preoperative antibiotics, carefully turned prone on Lamonte table, careful padding to all extremities, sterilely prepped and draped posterior thoracic and lumbar spine. Attention directed to the midline incision made overlying T9-T10 laminotomy was created. Paddle lead was placed over the T7-T8 level where her best pain relief was into a midline position. It was anchored in place. It was confirmed to still be in good position. Bone wax and FloSeal were used to aid hemostasis. Wound was closed in layers. Strain relief loops were created and was tunneled to the left-sided battery pocket where she desires her battery placed. Once the system was functioning well, wounds were irrigated, closed in layers. The patient transferred to recovery room in stable condition having tolerated the procedure well. Job ID: [id number] DocumentID: [id number] Dictated Date: 04/15/2019 08:52:38 Supply Assistant Date: 04/15/2019 13:26:35 Dictated By: MEHUL MARK MD
== END 2019-04-15 12:05 | disposition home or self-care (01) ==
LOC: SDC 06:01
PROVIDERS: ATTEND Orthopaedic Surgery Orthopaedic Surgery of the Spine
DX: M96.1 Postlaminectomy syndrome, not elsewhere classified (principal); M54.16 Radiculopathy, lumbar region; J44.9 Chronic obstructive pulmonary disease, unspecified; Z79.82 Long term (current) use of aspirin
CPT/HCPCS: 87081

== ENCOUNTER 2019-04-15 20:36 | Inpatient (IN) | payer MEDICARE, BC ==
[~2019-04-15] VITALS: Ht 157.5 cm; Wt 83.5 kg
[~2019-04-15 20:36] MED LIST changes: +MELA1TAB27 PO; +PNNLX50T PO
[2019-04-15] MEDS ORDERED: DEXAMETHASONE 4 MG/ML SDV (DECADRON) IV ONE (20:45)
[2019-04-15] MEDS ORDERED: LACTATED RINGERS 1,000 ML IV ONE (20:56)
[2019-04-15] MEDS ORDERED: fentaNYL INJECTION 100 MCG/2 ML AMP IVP ONE ×3 (21:00→22:00)
[2019-04-15] MEDS ORDERED: ONDANSETRON 4 MG/2 ML (SDV) Z0FRAN IVP ONE ×2 (21:00→23:30)
--- NOTE | 2019-04-15 21:03 | ED Abdominal Pain ---
General Chief Complaint: Abdominal/GI Problems Stated Complaint: ABD PAIN Source of Information: Patient, Family (DAUGHTER IS RN AND GIVES MOST OF INFORMATION) History of Present Illness Date Seen by Provider: Apr 15, 2019 Time Seen by Provider: 20:40 Initial Comments PT ARRIVES VIA POV FROM HOME PT HAD SPINAL CORD STIMULATOR PLACED IN THORACIC SPINE AREA WITH T9-T10 LAMINECTOMY, THIS AM BY DR. MIGUEL PT STATES SHE HAS HAD EXCRUCIATING PAIN ALL ACROSS UPPER ABDOMEN SINCE SHE WOKE UP FROM SURGERY C/O NAUSEA AND HAS VOMITED 6-8 TIMES, IN ADDITION TO DRY HEAVES MULTIPLE TIMES ONLY HAS VERY MILD PAIN IN MID BACK-MOSTLY ON THE RIGHT PT HAS TAKEN TALWIN X 1 AT 1830, ALONG WITH ZOFRAN 4 MG X 1 AT 1830 AND XANAX 0.25 X 1 AT 1830--WITHOUT RELIEF NO FEVER HAS NOT BEEN ABLE TO EAT OR DRINK DUE TO PAIN AND NAUSEA PCP: DR. CUEVAS ORTHO SURGEON: DR MIGUEL Allergies and Home Medications Allergies Coded Allergies: Horse/Equine Containing Products (Verified Allergy, Severe, SWELLING, 04/15/19) clopidogrel bisulfate (Unverified Allergy, Severe, SEVERE BLEEDING, ) tuberculin, purified protein deriva (Verified Allergy, Severe, POSTITIVE REACTION AND TOLD TO NEVER TAKE IT AGAIN, 04/15/19) clindamycin (Verified Allergy, Intermediate, DIARRHEA, 04/15/19) Penicillins (Verified Allergy, Mild, HIVES, 04/15/19) CAN TAKE KEFLEX Sulfa (Sulfonamide Antibiotics) (Verified Allergy, Mild, RASH, 04/15/19) Home Medications Acetaminophen 500 Mg Tablet, 1,000 MG PO TID, (Reported) Albuterol Sulfate 1 Puff Puff, 2 PUFF IH Q4H PRN for SHORTNESS OF BREATH, (Reported) 1 PUFF = 90 MCG Amlodipine Besylate 5 Mg Tablet, 2.5 MG PO BID, (Reported) Ascorbic Acid 500 Mg Tablet, 500 MG PO DAILY, (Reported) Aspirin 81 Mg Tab.chew, 81 MG PO DAILY, (Reported) Baclofen 20 Mg Tablet, 5 MG PO TID PRN for SPASMS, (Reported) Beta-Carotene 10,000 Unit Capsule, 10,000 UNIT PO DAILY, (Reported) Butalb/Acetaminophen/Caffeine 1 Each Tablet, 1 EACH PO Q6H PRN for HEADACHE, (Reported) Celecoxib 200 Mg Capsule, 200 MG PO DAILY, (Reported) Cholecalciferol (Vitamin D3) 2,000 Unit Tablet, 2,000 UNIT PO DAILY, (Reported) Cyanocobalamin (Vitamin B-12) 5,000 Mcg Tab.rapdis, 5,000 MCG PO DAILY, (Reported) Folic Acid 0.4 Mg Tablet, 0.4 MG PO DAILY, (Reported) Gabapentin 300 Mg Capsule, 300 MG PO TID, (Reported) Gemfibrozil 600 Mg Tablet, 600 MG PO BID, (Reported) L.acidoph & Paracasei,B.lactis 1 Each Capsule, 1 EACH PO DAILY, (Reported) Loratadine 10 Mg Tablet, 10 MG PO DAILY, (Reported) Melatonin/Pyridoxine HCl (B6) 1 Each Tablet, 1 EACH PO HS, (Reported) Montelukast Sodium 10 Mg Tablet, 10 MG PO DAILY, (Reported) Multivitamin 1 Each Capsule, PO DAILY, (Reported) Paroxetine HCl 20 Mg Tablet, 10 MG PO DAILY, (Reported) Pentazocine/Naloxone 50 Mg Tab, 50 MG PO Q4H PRN for PAIN-BREAKTHROUGH Prescribed by: MEHUL MIGUEL on 04/15/19 0856 Potassium Gluconate 99 Mg Tablet, 99 MG PO DAILY, (Reported) Pyridoxine HCl 100 Mg Tablet, 100 MG PO DAILY, (Reported) Ranitidine HCl 150 Mg Tablet, 150 MG PO DAILY, (Reported) Valacyclovir HCl 1,000 Mg Tablet, 1,000 MG PO BID, (Reported) Vitamin E Acetate 400 Unit Capsule, 400 UNIT PO DAILY, (Reported) Zinc Amino Acid Chelate 50 Mg Tablet, 50 MG PO DAILY, (Reported) Patient Home Medication List Home Medication List Reviewed: Yes Review of Systems Review of Systems Constitutional: No fever; weakness Respiratory: No Symptoms Reported Cardiovascular: No Symptoms Reported Gastrointestinal: See HPI, Nausea, Vomiting Genitourinary: No Symptoms Reported Musculoskeletal: see HPI Skin: no symptoms reported Psychiatric/Neurological: Anxiety Endocrine: No Symptoms Reported Hematologic/Lymphatic: No Symptoms Reported Past Nswcnzz-Ccjxhs-Rdhkcr Hx Patient Social History Alcohol Use: Denies Use Recreational Drug Use: No Smoking Status: Never a Smoker 2nd Hand Smoke Exposure: No Recent Foreign Travel: No Contact w/Someone Who Travel: No Recent Hopitalizations: No Immunizations Up To Date Date of Pneumonia Vaccine: Jul 24, 2017 Date of Influenza Vaccine: Jul 23, 2018 Seasonal Allergies Seasonal Allergies: Yes Past Medical History Surgeries: Yes (HYST/BSO; CARCINOID OF APPENDIX-APPY; RIGHT CARPAL TUNNEL; LEFT KNEE SCOPE; LUMBAR LAMINECTOMY; THORACIC SPINAL CORD STIMULATOR WITH T9-T10 LAMINECTOMY 04/15/19) Appendectomy, Gallbladder, Hysterectomy, Orthopedic Respiratory: Yes (CHRONIC COUGH) Asthma, COPD Cardiac: Yes (MITRAL VALVE PROLAPSE) Hypertension, Valvular Heart Disease Neurological: Yes (DUNN'S PALSY) Headaches /Migraines, TIA Reproductive Disorders: Yes (HX.FIBROIDS-HYSTERECTOMY) 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, Menopausal Sexually Transmitted Disease: No HIV/AIDS: No Genitourinary: Yes (KIDNEY STONES NOTED ON CT SCAN--PT HAS NEVER PASSED ONE) Kidney Stones Gastrointestinal: Yes (CARCINOID APPENDIX; S/P CHARLI) Gall Bladder Disease Musculoskeletal: Yes (POOR BALANCE AND FREQUENT FALLS; CHRONIC NECK PAIN AND STIFFNESS; CHRONIC BACK PAIN--S/P LAMINECTOMY AND SPINAL CORD STIMULATOR) Degenerate Disk Disease, Chronic Back Pain Endocrine: No HEENT: Yes (READING GLASSES; NOSEBLEEDS) Loss of Vision: Denies Hearing Impairment: Denies Cancer: No Psychosocial: No Integumentary: Yes (SHINGLES) Blood Disorders: No Adverse Reaction/Blood Tranf: No (N/A) Family Medical History No Pertinent Family Hx Physical Exam Vital Signs Vital Signs - First Documented 04/15/19 20:45 Temp 99.4 Pulse 97 Resp 20 B/P (MAP) 145/79 (101) Pulse Ox 96 Capillary Refill : Height/Weight/BMI Height: 5'2.00" Weight: 172lbs. 4.0oz. 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, no motor/sensory deficits, alert, oriented x 3, other (ANXIOUS) Skin: normal color, warm/dry Progress/Results/Core Measures Results/Orders Lab Results Laboratory Tests Test 04/15/19 20:55 04/15/19 21:50 Range/Units White Blood Count 17.0 H 4.3-11.0 10^3/uL Red Blood Count 4.32 L 4.35-5.85 10^6/uL Hemoglobin 13.7 11.5-16.0 G/DL Hematocrit 39 35-52 % Mean Corpuscular Volume 91 80-99 FL Mean Corpuscular Hemoglobin 32 25-34 PG Mean Corpuscular Hemoglobin Concent 35 32-36 G/DL Red Cell Distribution Width 12.7 10.0-14.5 % Platelet Count 419 H 130-400 10^3/uL Mean Platelet Volume 9.3 7.4-10.4 FL Neutrophils (%) (Auto) 77 H 42-75 % Lymphocytes (%) (Auto) 13 12-44 % Monocytes (%) (Auto) 10 0-12 % Eosinophils (%) (Auto) 0 0-10 % Basophils (%) (Auto) 0 0-10 % Neutrophils # (Auto) 13.2 H 1.8-7.8 X 10^3 Lymphocytes # (Auto) 2.2 1.0-4.0 X 10^3 Monocytes # (Auto) 1.6 H 0.0-1.0 X 10^3 Eosinophils # (Auto) 0.0 0.0-0.3 10^3/uL Basophils # (Auto) 0.0 0.0-0.1 10^3/uL Neutrophils % (Manual) 80 % Lymphocytes % (Manual) 9 % Monocytes % (Manual) 6 % Eosinophils % (Manual) 0 % Basophils % (Manual) 0 % Band Neutrophils 3 % Reactive Lymphocytes 2 % Rouleau SLIGHT Sodium Level 135 135-145 MMOL/L Potassium Level 3.6 3.6-5.0 MMOL/L Chloride Level 100 98-107 MMOL/L Carbon Dioxide Level 20 L 21-32 MMOL/L Anion Gap 15 H 5-14 MMOL/L Blood Urea Nitrogen 10 7-18 MG/DL Creatinine 0.80 0.60-1.30 MG/DL Estimat Glomerular Filtration Rate > 60 BUN/Creatinine Ratio 13 Glucose Level 108 H 70-105 MG/DL Calcium Level 10.4 H 8.5-10.1 MG/DL Corrected Calcium 10.0 8.5-10.1 MG/DL Total Bilirubin 0.4 0.1-1.0 MG/DL Aspartate Amino Transf (AST/SGOT) 26 5-34 U/L Alanine Aminotransferase (ALT/SGPT) 20 0-55 U/L Alkaline Phosphatase 124 40-136 U/L Total Protein 7.7 6.4-8.2 GM/DL Albumin 4.5 3.2-4.5 GM/DL Amylase Level 41 25-125 U/L Lipase 43 8-78 U/L Urine Color YELLOW Urine Clarity CLEAR Urine pH 8 5-9 Urine Specific [place] 1.010 L 1.016-1.022 Urine Protein 2+ H NEGATIVE Urine Glucose (UA) NEGATIVE NEGATIVE Urine Ketones 1+ H NEGATIVE Urine Nitrite NEGATIVE NEGATIVE Urine Bilirubin NEGATIVE NEGATIVE Urine Urobilinogen NORMAL NORMAL MG/DL Urine Leukocyte Esterase NEGATIVE NEGATIVE Urine RBC (Auto) 4+ H NEGATIVE Urine RBC 10-25 H /HPF Urine WBC RARE /HPF Urine Squamous Epithelial Cells 5-10 /HPF Urine Crystals NONE /LPF Urine Bacteria TRACE /HPF Urine Casts NONE /LPF Urine Mucus NEGATIVE /LPF Urine Culture Indicated NO My Orders Orders - SALAZRA DUDLEY DO Ct Thoracic Spine Wo (04/15/19 20:39) Ed Iv/Invasive Line Start (04/15/19 20:39) Dexamethasone Injection (Decadron Inject (04/15/19 20:45) Fentanyl Injection (Sublimaze Injection (04/15/19 21:00) Ondansetron Injection (Zofran Injectio (04/15/19 21:00) Ct Abdomen/Pelvis Wo (04/15/19 20:56) Amylase (04/15/19 20:56) Cbc With Automated Diff (04/15/19 20:56) Comprehensive Metabolic Panel (04/15/19 20:56) Lipase (04/15/19 20:56) Ua Culture If Indicated (04/15/19 20:56) Ed Iv/Invasive Line Start (04/15/19 20:56) Lactated Ringers (Lr 1000 Ml Iv Solution (04/15/19 20:56) Manual Differential (04/15/19 20:55) Fentanyl Injection (Sublimaze Injection (04/15/19 21:30) Pantoprazole Injection (Protonix Injecti (04/15/19 21:30) Fentanyl Injection (Sublimaze Injection (04/15/19 22:00) Morphine Injection (Morphine Injection (04/15/19 22:11) Medications Given in ED Current Medications Medications Dose Ordered Sig/Susan Route Start Time Stop Time Status Last Admin Dose Admin Dexamethasone Sodium Phosphate 10 mg ONCE ONCE IV 04/15/19 20:45 04/15/19 20:46 DC 04/15/19 21:11 10 MG Fentanyl Citrate 50 mcg ONCE ONCE IVP 04/15/19 21:00 04/15/19 21:01 DC 04/15/19 21:07 50 MCG Fentanyl Citrate 50 mcg ONCE ONCE IVP 04/15/19 21:30 04/15/19 21:31 DC 04/15/19 21:29 50 MCG Fentanyl Citrate 50 mcg ONCE ONCE IVP 04/15/19 22:00 04/15/19 22:01 DC 04/15/19 22:50 50 MCG Lactated Ringer's 1,000 ml @ 0 mls/hr Q0M ONCE IV 04/15/19 20:56 04/15/19 20:58 DC 04/15/19 21:15 1,000 MLS/HR Ondansetron HCl 8 mg ONCE ONCE IVP 04/15/19 21:00 04/15/19 21:01 DC 04/15/19 21:11 8 MG Pantoprazole 40 mg ONCE ONCE IV 04/15/19 21:30 04/15/19 21:31 DC 04/15/19 21:35 40 MG Vital Signs/I&O 04/15/19 20:45 Temp 99.4 Pulse 97 Resp 20 B/P (MAP) 145/79 (101) Pulse Ox 96 04/16/19 00:00 Intake Total 1000 ml Balance 1000 ml Progress Progress Note : Progress Note GIVEN MULTIPLE DOSES OF FENTANYL, MORPHINE AND ZOFRAN, WITH ONLY MINIMAL RELIEF OF SYMPTOMS Diagnostic Imaging Comments CT THORACIC SPINE--POST SPINAL EPIDURAL PAIN DEVICE IN PLACE, WITH PROPER POSITIONING--PER [facility] VIA FAX AT [id number] CT ABDOMEN/PELVIS--NO ACUTE PROCESS--NON-OBSTRUCTING LEFT INTRARENAL STONE, DIVERTICULOSIS WITHOUT ACUTE DIVERTICULITIS, COMPLEX CYST WITH CALCIFICATION TO LEFT HEPATIC LOBE, DEGENERATIVE CHANGES OF SPINE--PER [facility] VIA FAX AT 1555 Reviewed: Reviewed by Me Departure Communication (Admissions) DR MIGUEL CALLED PRIOR TO PT'S ARRIVAL AND INFORMED ME THAT PT WAS COMING TO ER, AND HE ADVISES DECADRON AND PAIN MEDICATIONS, CT OF THORACIC SPINE, AND WILL CALL HIM WITH TEST RESULTS. [id number]--SPOKE WITH DR. MIGUEL, HE WILL REVIEW FILMS AND CALL ME BACK [phone]--SPOKE WITH DR. MIGUEL, ACCEPTS PT FOR ADMIT/OBSERVATION Impression Primary Impression: INTRACTABLE POST OP PAIN Additional Impressions: S/P insertion of spinal cord stimulator S/P laminectomy Microscopic hematuria Radicular pain of thoracic region Disposition: ADMITTED INPATIENT Condition: Stable Admissions Decision to Admit Reason: Admit from ER (General) Decision to Admit/Date: Apr 15, 2019 Time/Decision to Admit Time: 22:55 Departure-Patient Inst. Referrals: FILIPE CUEVAS MD (PCP/Family) Primary Care Physician SALAZAR DUDLEY DO Apr 15, 2019 21:03
[2019-04-15 21:06] LABS: BASOPHILS % (AUTO) 0 % (0-10); EOSINOPHILS % (AUTO) 0 % (0-10); HEMATOCRIT 39 % (35-52); HEMOGLOBIN 13.7 G/DL (11.5-16.0); LYMPHOCYTES # (AUTO) 2.2 X 10^3 (1.0-4.0); LYMPHOCYTES % (AUTO) 13 % (12-44); MEAN CORPUSCULAR HEMOGLOBIN 32 PG (25-34); MEAN CORPUSCULAR HGB CONC 35 G/DL (32-36); MEAN CORPUSCULAR VOLUME 91 FL (80-99); MEAN PLATELET VOLUME 9.3 FL (7.4-10.4); MONOCYTES # (AUTO) 1.6 X 10^3 (0.0-1.0); MONOCYTES % (AUTO) 10 % (0-12); NEUTROPHILS # (AUTO) 13.2 X 10^3 (1.8-7.8); NEUTROPHILS % (AUTO) 77 % (42-75); PLATELET COUNT 419 10^3/uL (130-400); RED CELL DISTRIBUTION WIDTH 12.7 % (10.0-14.5)
[2019-04-15 21:17] LABS: BAND NEUTROPHILS 3 %; BASOPHILS % (MANUAL) 0 %; EOSINOPHILS % (MANUAL) 0 %; LYMPHOCYTES % (MANUAL) 9 %; MONOCYTES % (MANUAL) 6 %; NEUTROPHILS % (MANUAL) 80 %; REACTIVE LYMPHOCYTES 2 %; ROULEAUX SLIGHT
[2019-04-15 21:26] LABS: ALANINE AMINOTRANSFERASE 20 U/L (0-55); ALBUMIN 4.5 GM/DL (3.2-4.5); ALKALINE PHOSPHATASE 124 U/L (40-136); AMYLASE 41 U/L (25-125); BILIRUBIN,TOTAL 0.4 MG/DL (0.1-1.0); BUN/CREATININE RATIO 13; CALCIUM 10.4 MG/DL (8.5-10.1); CARBON DIOXIDE 20 MMOL/L (21-32); CHLORIDE 100 MMOL/L (98-107); GFR ESTIMATED > 60; GLUCOSE 108 MG/DL (70-105); LIPASE 43 U/L (8-78); POTASSIUM 3.6 MMOL/L (3.6-5.0); SODIUM 135 MMOL/L (135-145); TOTAL PROTEIN 7.7 GM/DL (6.4-8.2)
[2019-04-15] MEDS ORDERED: PANTOPRAZOLE 40 MG (PROTONIX) VIAL IV ONE (21:30)
[2019-04-15 21:55] LABS: BILIRUBIN,URINE NEGATIVE (NEGATIVE); CLARITY,URINE CLEAR; COLOR,URINE YELLOW; GLUCOSE, URINE (UA) NEGATIVE (NEGATIVE); KETONES,URINE 1+ (NEGATIVE); LEUKOCYTE ESTERASE ,URINE NEGATIVE (NEGATIVE); NITRITE,URINE NEGATIVE (NEGATIVE); PH,URINE 8 (5-9); PROTEIN,URINE 2+ (NEGATIVE); UROBILINOGEN,URINE NORMAL (NORMAL)
[2019-04-15 22:01] LABS: BACTERIA,URINE TRACE /HPF; WBC,URINE RARE /HPF
[2019-04-15] MEDS ORDERED: morphine INJ 10 MG/ML 1ML (SYR OR VIAL) IVP STA ×2 (22:11→23:13)
[2019-04-16] VITALS (26 sets, daily range): BP systolic 115–173; BP diastolic 47–90
[2019-04-16] MEDS ORDERED: D5 1/2 NS 1000 ML IV SOLUTION 1,000 ML IV ONE (00:14)
[2019-04-16] MEDS: D5 1/2 NS 1000 ML IV SOLUTION 1,000 ML IV SCH ×4 (00:29→20:59)
[2019-04-16] MEDS: fentaNYL INJECTION 100 MCG/2 ML AMP IV PRN ×9 (00:42→23:51)
[2019-04-16] MEDS: ONDANSETRON 4 MG/2 ML (SDV) Z0FRAN IV PRN ×6 (00:43→23:51)
[2019-04-16] MEDS: morphine INJ 4 MG/ML 1 ML (VIAL/SYRINGE) IV PRN ×5 (02:09→20:58)
[2019-04-16] MEDS: DEXAMETHASONE 4 MG/ML SDV (DECADRON) IV SCH ×3 (03:14→20:58)
[2019-04-16 03:57] LABS: BASOPHILS % (AUTO) 0 % (0-10); EOSINOPHILS % (AUTO) 0 % (0-10); HEMATOCRIT 40 % (35-52); HEMOGLOBIN 13.6 G/DL (11.5-16.0); LYMPHOCYTES # (AUTO) 1.4 X 10^3 (1.0-4.0); LYMPHOCYTES % (AUTO) 10 % (12-44); MEAN CORPUSCULAR HEMOGLOBIN 31 PG (25-34); MEAN CORPUSCULAR HGB CONC 34 G/DL (32-36); MEAN CORPUSCULAR VOLUME 93 FL (80-99); MEAN PLATELET VOLUME 9.5 FL (7.4-10.4); MONOCYTES # (AUTO) 0.8 X 10^3 (0.0-1.0); MONOCYTES % (AUTO) 6 % (0-12); NEUTROPHILS # (AUTO) 11.7 X 10^3 (1.8-7.8); NEUTROPHILS % (AUTO) 85 % (42-75); PLATELET COUNT 390 10^3/uL (130-400); RED CELL DISTRIBUTION WIDTH 12.7 % (10.0-14.5); WHITE BLOOD COUNT 13.8 10^3/uL (4.3-11.0)
[2019-04-16 04:21] LABS: ALANINE AMINOTRANSFERASE 18 U/L (0-55); ALBUMIN 4.3 GM/DL (3.2-4.5); ALKALINE PHOSPHATASE 112 U/L (40-136); BILIRUBIN,TOTAL 0.3 MG/DL (0.1-1.0); BUN/CREATININE RATIO 10; CARBON DIOXIDE 24 MMOL/L (21-32); CHLORIDE 102 MMOL/L (98-107); GFR ESTIMATED > 60; GLUCOSE 146 MG/DL (70-105); POTASSIUM 3.7 MMOL/L (3.6-5.0); SODIUM 138 MMOL/L (135-145); TOTAL PROTEIN 7.4 GM/DL (6.4-8.2)
--- OUTSIDE RECORDS SUMMARY | 2019-04-16 04:36 | XMS REPORT | CCD ---
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) and also during college she was exposed to smoke during her work in college 2013 Marital status Unknown Since 200406/26/2011 Number of children Unknown 3 2 daughters, 1 son 06/26/[address]: 753424223 Never drinks alcohol 06/26/2011 Has the patient [...] PENICILLINS Unknown 06/26/2011 No Inactive Date Active ZOPFOFO-JPT-BJO REDUCTASE INHIBITORS Unknown 06/26/2011 No Inactive Date Active SULFA (SULFONAMIDES) Unknown 01/02/2017 No Inactive Date Active Past Medical History Illness Codes Condition Status Onset Date Resolved Date Essential (primary) hypertension ICD-9: 401.9 ICD-10: I10 Active 03/23/2016 Unknown Mild intermittent asthma, uncomplicated ICD-9: 493.20 ICD-10: J45.20 Active 03/23/2016 Unknown Encounter for follow-up examination after completed treatment for conditions other than malignant neoplasm ICD-9: V67.59 ICD-10: Z09 Active 12/03/2018 Unknown Low back pain ICD-9: 724.2 ICD-10: M54.5 Active 02/14/2017 Unknown Postherpetic trigeminal neuralgia ICD-9: 053.12 ICD-10: B02.22 Active 11/07/2018 Unknown Chronic obstructive pulmonary disease with (acute) exacerbation ICD-9: 491.21 ICD-10: J44.1 Active 11/07/2018 Unknown Chronic frontal sinusitis ICD-9: 478.19 ICD-10: J32.1 Active 09/04/2018 Unknown Mild intermittent asthma with (acute) exacerbation ICD-9: 493.90 ICD-10: J45.21 Active 09/24/2015 Unknown Other retention of urine ICD-9: 788.29 ICD-10: R33.8 Active 07/10/2018 Unknown Encounter for immunization ICD-9: V04.81 ICD-10: Z23 Active 07/12/2016 Unknown Personal history of other diseases of the musculoskeletal system and connective tissue ICD-9: V13.59 ICD-10: Z87.39 Active 06/19/2018 Unknown Primary hyperparathyroidism ICD-9: 252.01 ICD-10: E21.0 Active 06/19/2018 Unknown Sciatica, right side ICD- 9: 724.3 ICD-10: M54.31 Active 02/14/2017 Unknown Dysuria ICD-9: 788.1 ICD-10: R30.0 Active 06/15/2018 Unknown Encounter for general adult medical examination with abnormal findings ICD-9: V70.0 ICD-10: Z00.01 Active 01/08/2018 Unknown Mixed hyperlipidemia ICD- 9: 272.4 ICD-10: E78.2 Active 01/08/2018 Unknown Shortness of breath ICD- 9: 786.05 ICD-10: R06.02 Active 01/08/2018 Unknown Cough [...] ICD-10: R04.0 Active 03/31/2016 Unknown Insomnia, unspecified ICD- 9: 780.52 ICD-10: G47.00 Active 03/23/2016 Unknown Allergic rhinitis due to pollen ICD-9: 477.0 ICD-10: J30.1 Active 08/23/2015 Unknown Encounter for screening for malignant neoplasm of vagina ICD-9: V76.47 ICD-10: Z12.72 Active 06/11/2015 Unknown Pelvic and perineal pain ICD-9: [id number] ICD-10: R10.2 Active 06/11/2015 Unknown Well woman exam ICD-9: V70.0 Active 06/11/2015 Unknown ACUTE MAXILLARY SINUSITIS ICD-9: 461.0 Active 05/28/2015 Unknown Tinea corporis ICD-9: 110.5 Active 05/28/2015 Unknown Comedone ICD-9: 706.1 Active 03/25/2015 Unknown IMPACTED CERUMEN ICD-9: 380.4 Active 03/25/2015 Unknown Seborrheic keratoses ICD- 9: 702.19 Active 03/25/2015 Unknown Skin tag ICD-9: 701.9 Active 03/25/2015 Unknown Diabetes Unknown Active 03/17/2015 Unknown HYPERLIPIDEMIA ICD-9: 272.4 Active 06/27/2011 Unknown INSECT BITE HIP/LEG ICD- 9: 916.4 Active 03/16/2015 Unknown Acute bronchitis ICD-9: 466.0 Active 10/15/2014 Unknown CHRONIC OBSTRUCTIVE ASTHMA WITH EXACERBATION ICD-9: 493.22 Active 10/15/2014 Unknown COUGH ICD-9: 786.2 Active 10/15/2014 Unknown MALAISE AND FATIGUE ICD- 9: 780.79 Active 10/15/2014 Unknown Acute anterior epistaxis ICD-9: 784.7 Active 04/10/2014 Unknown ESSENTIAL HYPERTENSION ICD-9: 401.9 Active 04/10/2014 Unknown Nasal congestion ICD-9: 478.19 Active 02/17/2014 Unknown Sleep apnea ICD-9: 780.57 Active 2013 Unknown Encounter for long-term (current) use of medications ICD-9: V58.69 Active 03/14/2012 Unknown Hypertension Unknown Active 03/08/2012 Unknown CHRONIC OBSTRUCTIVE ASTHMA ICD-9: 493.20 Active 09/28/2011 Unknown PAIN IN LIMB ICD-9: 729.5 Active 09/28/2011 Unknown Primary generalized (osteo)arthritis ICD-9: 715.09 Active 09/28/2011 Unknown VACCIN FOR INFLUENZA ICD- 9: V04.81 Active 07/05/2011 Unknown ROUTINE PHYSICL LAB EXAM ICD-9: V72.62 Active 06/28/2011 Unknown Hyperlipidemia Unknown Active 06/27/2011 Unknown Osteoarthritis Unknown Active 06/27/2011 Unknown ACUTE SINUSITIS ICD-9: 461.9 Active 06/27/2011 Unknown Asthma ICD-9: 493.90 Active 06/27/2011 Unknown Osteoarthritis ICD-9: 715.90 Active 06/27/2011 Unknown Allergies Unknown Active 06/26/2011 Unknown Asthma Unknown Active 06/26/2011 Unknown Depression Unknown Active 06/26/2011 Unknown Irritable bowel syndrome Unknown Active 06/26/2011 Unknown Transient ischemic attack (TIA) Unknown Active 06/26/2011 Unknown Problems Condition Codes Effective Dates Condition Status Essential (primary) hypertension ICD-9: 401.9 ICD-10: I10 03/23/2016 Active Mild intermittent asthma, uncomplicated ICD-9: 493.20 ICD-10: J45.20 03/23/2016 Active Encounter for follow-up examination after completed treatment for conditions other than malignant neoplasm ICD-9: V67.59 ICD-10: Z09 12/03/2018 Active Low back pain ICD-9: 724.2 ICD-10: M54.5 02/14/2017 Active Postherpetic trigeminal neuralgia ICD-9: 053.12 ICD-10: B02.22 11/07/2018 Active Chronic obstructive pulmonary disease with (acute) exacerbation ICD-9: 491.21 ICD-10: J44.1 11/07/2018 Active Chronic frontal sinusitis ICD-9: 478.19 ICD-10: J32.1 09/04/2018 Active Mild intermittent asthma with (acute) exacerbation ICD-9: 493.90 ICD-10: J45.21 09/24/2015 Active Other retention of urine ICD-9: 788.29 ICD-10: R33.8 07/10/2018 Active Encounter for immunization ICD-9: V04.81 ICD-10: Z23 07/12/2016 Active Personal history of other diseases of the musculoskeletal system and connective tissue ICD-9: V13.59 ICD-10: Z87.39 06/19/2018 Active Primary hyperparathyroidism ICD-9: 252.01 ICD-10: E21.0 06/19/2018 Active Sciatica, right side ICD- 9: 724.3 ICD-10: M54.31 02/14/2017 Active Dysuria ICD-9: 788.1 ICD-10: R30.0 06/15/2018 Active Encounter for general adult medical examination with abnormal findings ICD-9: V70.0 ICD-10: Z00.01 01/08/2018 Active Mixed hyperlipidemia ICD- 9: 272.4 ICD-10: E78.2 01/08/2018 Active Shortness of breath ICD- 9: 786.05 ICD-10: R06.02 01/08/2018 Active Cough ICD-9: [...] 784.7 ICD-10: R04.0 03/31/2016 Active Insomnia, unspecified ICD- 9: 780.52 ICD-10: G47.00 03/23/2016 Active Allergic rhinitis due to pollen ICD-9: 477.0 ICD-10: J30.1 08/23/2015 Active Encounter for screening for malignant neoplasm of vagina ICD-9: V76.47 ICD-10: Z12.72 06/11/2015 Active Pelvic and perineal pain ICD-9: [id number] ICD-10: R10.2 06/11/2015 Active Well woman exam ICD-9: V70.0 06/11/2015 Active ACUTE MAXILLARY SINUSITIS ICD-9: 461.0 05/28/2015 Active Tinea corporis ICD-9: 110.5 05/28/2015 Active Comedone ICD-9: 706.1 03/25/2015 Active IMPACTED CERUMEN ICD-9: 380.4 03/25/2015 Active Seborrheic keratoses ICD- 9: 702.19 03/25/2015 Active Skin tag ICD-9: 701.9 03/25/2015 Active Diabetes Unknown 03/17/2015 Active HYPERLIPIDEMIA ICD-9: 272.4 06/27/2011 Active INSECT BITE HIP/LEG ICD- 9: 916.4 03/16/2015 Active Acute bronchitis ICD-9: 466.0 10/15/2014 Active CHRONIC OBSTRUCTIVE ASTHMA WITH EXACERBATION ICD-9: 493.22 10/15/2014 Active COUGH ICD-9: 786.2 10/15/2014 Active MALAISE AND FATIGUE ICD- 9: 780.79 10/15/2014 Active Acute anterior epistaxis ICD-9: 784.7 04/10/2014 Active ESSENTIAL HYPERTENSION ICD-9: 401.9 04/10/2014 Active Nasal congestion ICD-9: 478.19 02/17/2014 Active Sleep apnea ICD-9: 780.57 2013 Active Encounter for long-term (current) use of medications ICD-9: V58.69 03/14/2012 Active Hypertension Unknown 03/08/2012 Active CHRONIC OBSTRUCTIVE ASTHMA ICD-9: 493.20 09/28/2011 Active PAIN IN LIMB ICD-9: 729.5 09/28/2011 Active Primary generalized (osteo)arthritis ICD-9: 715.09 09/28/2011 Active VACCIN FOR INFLUENZA ICD- 9: V04.81 07/05/2011 Active ROUTINE PHYSICL LAB EXAM ICD-9: V72.62 06/28/2011 Active Hyperlipidemia Unknown 06/27/2011 Active Osteoarthritis Unknown 06/27/2011 Active ACUTE SINUSITIS ICD-9: 461.9 06/27/2011 Active Asthma ICD-9: 493.90 06/27/2011 Active Osteoarthritis ICD-9: 715.90 06/27/2011 Active Allergies Unknown 06/26/2011 Active Asthma Unknown 06/26/2011 Active Depression Unknown 06/26/2011 Active Irritable bowel syndrome Unknown 06/26/2011 Active Transient ischemic attack (TIA) Unknown 06/26/2011 Active Medications Medication Codes Instructions Start Date Stop Date Status Fill Instructions Zofran ODT 4 mg disintegrating tablet RxNorm: 863684 1 Tablet(s) PO Q8 as needed 04/15/2019 No Stop Date Active Pepcid 20 mg tablet RxNorm: 276928 1 Tablet(s) PO BID 04/15/2019 04/21/2019 Active Xanax 0.25 mg tablet RxNorm: 518121 1 Tablet(s) PO TID as needed 04/15/2019 No Stop Date Active Pepcid 20 mg tablet RxNorm: 986775 1 Tablet(s) PO BID 04/15/2019 04/14/2019 Inactive Singulair 10 mg tablet RxNorm: 638679 TAKE 1 TABLET BY MOUTH DAILY 03/22/2019 03/15/2020 Active - First Attempt Ref: [id number] valacyclovir 1 gram tablet RxNorm: 833920 1 Tablet(s) PO BID 03/05/2019 05/03/2019 Active Celebrex 200 mg capsule RxNorm: 344157 TAKE 1 CAPSULE BY MOUTH TWO TIMES DAILY 02/01/2019 10/28/2019 Active - Ref: [id number] paroxetine 20 mg tablet RxNorm: 0760871 TAKE 1/2 TABLET BY MOUTH EVERY DAY 02/01/2019 10/28/2019 Active lidocaine 4 % topical patch RxNorm: 6352593 1 Patch TOP UD 12/03/2018 No Stop Date Active if too expensive get OTC salon [facility] amlodipine 5 mg tablet RxNorm: 495897 1 Tablet(s) PO daily 11/09/2018 06/06/2019 Active ProAir HFA 90 mcg/actuation aerosol inhaler RxNorm: 3033471 1-2 INH QID as needed 11/07/2018 03/06/2019 Inactive prednisone 10 mg tablet RxNorm: 883385 1 Tablet(s) PO UD 2tabs bid x3days, then 2tabs AM and 1tabPM x3days, then 1tab BID x 3days then 1tab AM x 3 days then stop 11/07/2018 No Stop Date Active albuterol sulfate 1.25 mg/3 mL solution for nebulization RxNorm: 432780 3 Milliliter(s) INH Q4 PRN as needed dyspnea from COPD 11/07/2018 11/01/2019 Active valacyclovir 1 gram tablet RxNorm: 468367 1 Tablet(s) PO BID 11/07/2018 11/20/2018 Inactive gemfibrozil 600 mg tablet RxNorm: 694648 1 TABLET(S) PO TAKE ONE TABLET BY MOUTH TWICE DAILY 10/15/2018 07/11/2019 Active Diflucan 150 mg tablet RxNorm: 553534 1 Tablet(s) PO daily 09/04/2018 09/13/2018 Inactive amlodipine 2.5 mg tablet RxNorm: 533658 1 Tablet(s) PO daily 09/04/2018 11/08/2018 Inactive albuterol sulfate 1.25 mg/3 mL solution for nebulization RxNorm: 039350 3 Milliliter(s) INH Q4 PRN as needed dyspnea 07/10/2018 11/06/2018 Inactive Diflucan 150 mg tablet RxNorm: 581823 1 Tablet(s) PO daily x 3 days then may repeat in 10 days if symptoms are not resolved in throat 06/19/2018 06/30/2018 Inactive Keflex 500 mg capsule RxNorm: 721142 1 Capsule(s) PO TID 06/15/2018 06/21/2018 Inactive Keflex 500 mg capsule RxNorm: 803038 1 Capsule(s) PO TID 06/15/2018 06/14/2018 Inactive paroxetine 20 mg tablet RxNorm: 9527642 TAKE 1/2 TABLET BY MOUTH EVERY DAY 05/09/2018 01/31/2019 Inactive prednisone 20 mg tablet RxNorm: 119554 2 Tablet(s) PO daily 03/13/2018 03/22/2018 Inactive Celebrex 200 mg capsule RxNorm: 563949 TAKE 1 CAPSULE BY MOUTH TWO TIMES DAILY 03/08/2018 09/03/2018 Inactive - First Attempt Ref: [id number] Singulair 10 mg tablet RxNorm: 666358 Tablet(s) TAKE 1 TABLET BY MOUTH DAILY 02/27/2018 02/21/2019 Inactive Kenalog 40 mg/mL suspension for injection RxNorm: 1855589 1 Milliliter(s) Inj 02/02/2018 02/02/2018 Inactive Singulair 10 mg tablet RxNorm: 866290 TAKE 1 TABLET BY MOUTH DAILY 01/05/2018 02/26/2018 Inactive - First Attempt Ref: [id number] pantoprazole 40 mg tablet,delayed release RxNorm: 104505 Tablet(s) TAKE 1 TABLET DAILY 12/19/2017 01/07/2018 Inactive gemfibrozil 600 mg tablet RxNorm: 362939 1 TABLET(S) PO TAKE ONE TABLET BY MOUTH TWICE DAILY 12/05/2017 08/31/2018 Inactive albuterol sulfate 1.25 mg/3 mL solution for nebulization RxNorm: 502358 3 Milliliter(s) INH Q4 PRN as needed dyspnea 11/22/2017 05/20/2018 Inactive albuterol sulfate 1.25 mg/3 mL solution for nebulization RxNorm: 825823 3 Milliliter(s) INH Q4 PRN as needed dyspnea 11/02/2017 11/21/2017 Inactive methylprednisolone 4 mg tablets in a dose pack RxNorm: 404590 1 Tablet(s) PO UD 09/01/2017 No Stop Date Active albuterol sulfate 1.25 mg/3 mL solution for nebulization RxNorm: 311249 3 Milliliter(s) INH Q4 PRN as needed dyspnea 09/01/2017 11/01/2017 Inactive Keflex 500 mg capsule RxNorm: 315483 1 Capsule(s) PO TID 09/01/2017 09/10/2017 Inactive methylprednisolone 4 mg tablets in a dose pack RxNorm: 616043 1 Tablet(s) PO UD To start tomorrow 08/21/2017 08/31/2017 Inactive Kenalog 40 mg/mL suspension for injection RxNorm: 8279322 Milliliter(s) Inj 08/21/2017 08/21/2017 Inactive Levaquin 500 mg tablet RxNorm: 600827 1 Tablet(s) PO daily 08/21/2017 08/27/2017 Inactive Ativan 0.5 mg tablet RxNorm: 844349 1 Tablet(s) PO 1 hour before MRI, may repeat dose x1 07/21/2017 07/20/2017 Inactive Ativan 0.5 mg tablet RxNorm: 505855 1 Tablet(s) PO 1 hour before MRI, february repeat dose x1 07/21/2017 07/21/2017 Inactive ProAir HFA 90 mcg/actuation aerosol inhaler RxNorm: 0266570 1-2 INH QID as needed 07/18/2017 11/14/2017 Inactive Kenalog 40 mg/mL suspension for injection RxNorm: 7879305 Milliliter(s) Inj 06/30/2017 06/30/2017 Inactive albuterol sulfate 1.25 mg/3 mL solution for nebulization RxNorm: 599852 3 Milliliter(s) INH Q4 PRN as needed dyspnea 06/07/2017 08/31/2017 Inactive Keflex 500 mg capsule RxNorm: 665551 1 Capsule(s) PO TID 06/02/2017 06/01/2017 Inactive Keflex 500 mg capsule RxNorm: 804757 1 Capsule(s) PO TID 06/02/2017 06/08/2017 Inactive methylprednisolone 4 mg tablets in a dose pack RxNorm: 932294 1 Tablet(s) PO UD To start tomorrow 05/10/2017 08/20/2017 Inactive Kenalog 40 mg/mL suspension for injection RxNorm: 8635296 Milliliter(s) Inj 05/09/2017 05/09/2017 Inactive Voltaren 1 % topical gel RxNorm: 371113 1 Application TOP TID as needed 05/08/2017 No Stop Date Active paroxetine 20 mg tablet RxNorm: 1573461 TAKE 1/2 TABLET BY MOUTH EVERY DAY 05/03/2017 04/27/2018 Inactive gemfibrozil 600 mg tablet RxNorm: 724081 1 TABLET(S) PO TAKE ONE TABLET BY MOUTH TWICE DAILY 02/21/2017 11/17/2017 Inactive Celebrex 200 mg capsule RxNorm: 071075 1 Capsule(s) PO BID 02/08/2017 02/02/2018 Inactive Celebrex 200 mg capsule RxNorm: 550242 1 Capsule(s) PO BID TAKE 1 CAPSULE TWICE DAILY 02/02/2017 02/07/2017 Inactive ketoconazole 2 % shampoo RxNorm: 137924 1 Application TOP daily x 1 week then weekly as needed for rash 01/31/2017 No Stop Date Active DC topical cream ProAir RespiClick 90 mcg/actuation breath activated RxNorm: 2605287 1 -2 INH Q4H as needed ASTHMA 01/31/2017 07/17/2017 Inactive Kenalog 40 mg/mL suspension for injection RxNorm: 1284725 1.5 Milliliter(s) Inj 01/30/2017 01/30/2017 Inactive Levaquin 500 mg tablet RxNorm: 004804 1 Tablet(s) PO daily 01/30/2017 02/05/2017 Inactive Celebrex 200 mg capsule RxNorm: 656088 1 Capsule(s) PO BID TAKE 1 CAPSULE TWICE DAILY 01/30/2017 02/01/2017 Inactive methylprednisolone 4 mg tablets in a dose pack RxNorm: 335599 1 Tablet(s) PO UD 01/30/2017 05/08/2017 Inactive ketoconazole 2 % shampoo RxNorm: 128867 1 Application TOP daily x 1 week then weekly as needed for rash 12/30/2016 01/30/2017 Inactive DC topical cream aspirin 81 mg tablet,delayed release RxNorm: 026818 1 Tablet(s) PO daily 12/29/2016 No Stop Date Active ketoconazole 2 % topical cream RxNorm: 055746 1 Application TOP daily x 1 week then weekly as needed for rash 12/29/2016 12/29/2016 Inactive Singulair 10 mg tablet RxNorm: 941315 Tablet(s) TAKE 1 TABLET DAILY 11/30/2016 11/23/2017 Inactive pantoprazole 40 mg tablet,delayed release RxNorm: 999826 Tablet(s) TAKE 1 TABLET DAILY 11/30/2016 11/23/2017 Inactive paroxetine 20 mg tablet RxNorm: 3191860 Tablet(s) TAKE ONE-HALF TABLET BY MOUTH EVERY DAY 11/25/2016 05/02/2017 Inactive paroxetine 20 mg tablet RxNorm: 7164605 Tablet(s) TAKE ONE-HALF TABLET BY MOUTH EVERY DAY 11/17/2016 11/24/2016 Inactive Levaquin 500 mg tablet RxNorm: 789816 1 Tablet(s) PO daily 10/11/2016 11/24/2016 Inactive pantoprazole 40 mg tablet,delayed release RxNorm: 956230 TAKE 1 TABLET DAILY 08/22/2016 11/29/2016 Inactive gemfibrozil 600 mg tablet RxNorm: 972947 1 TABLET(S) PO TAKE ONE TABLET BY MOUTH TWICE DAILY 05/06/2016 01/30/2017 Inactive temazepam 7.5 mg capsule RxNorm: 446549 1 Capsule(s) PO HS PRN 03/24/2016 No Stop Date Active Singulair 10 mg tablet RxNorm: 014062 Tablet(s) TAKE 1 TABLET DAILY 03/07/2016 11/29/2016 Inactive Singulair 10 mg tablet RxNorm: 762971 Tablet(s) TAKE 1 TABLET DAILY 03/07/2016 03/06/2016 Inactive pantoprazole 40 mg tablet,delayed release RxNorm: 054826 TAKE 1 TABLET DAILY 02/15/2016 08/12/2016 Inactive Celebrex 200 mg capsule RxNorm: 798706 1 Capsule(s) PO BID TAKE 1 CAPSULE TWICE DAILY 01/25/2016 01/17/2017 Inactive gemfibrozil 600 mg tablet RxNorm: 635058 1 TABLET(S) PO TAKE ONE TABLET BY MOUTH TWICE DAILY 11/10/2015 05/05/2016 Inactive Patient requests 90 days supply Levaquin 500 mg tablet RxNorm: 144567 1 Tablet(s) PO daily 09/29/2015 10/08/2015 Inactive albuterol sulfate 1.25 mg/3 mL solution for nebulization RxNorm: 274336 3 Milliliter(s) INH PRN as needed dyspnea 09/25/2015 06/06/2017 Inactive Levaquin 500 mg tablet RxNorm: 916615 1 Tablet(s) PO daily 08/24/2015 09/02/2015 Inactive albuterol sulfate HFA 90 mcg/actuation aerosol inhaler RxNorm: 8258984 1-2 Puff(s) INH Q4 PRN as needed 08/24/2015 01/30/2017 Inactive sample and rX provided albuterol sulfate HFA 90 mcg/actuation aerosol inhaler RxNorm: 7021455 1-2 Puff(s) INH Q4 PRN as needed 08/24/2015 08/23/2015 Inactive sample and rX provided paroxetine 20 mg tablet RxNorm: 9840432 Tablet(s) TAKE ONE-HALF TABLET BY MOUTH EVERY DAY 08/21/2015 03/17/2016 Inactive pantoprazole 40 mg tablet,delayed release RxNorm: 931836 1 Tablet(s) PO daily 07/27/2015 07/26/2015 Inactive pantoprazole 40 mg tablet,delayed release RxNorm: 998569 1 Tablet(s) PO daily 07/27/2015 01/22/2016 Inactive gemfibrozil 600 mg tablet RxNorm: 782978 1 TABLET(S) PO TAKE ONE TABLET BY MOUTH TWICE DAILY 07/10/2015 11/09/2015 Inactive nystatin (bulk) 100 million unit powder RxNorm: 1 APPLICATION TOP TID 06/25/2015 07/15/2015 Inactive Kenalog 40 mg/mL suspension for injection RxNorm: 7306032 Milliliter(s) Inj 05/29/2015 05/29/2015 Inactive Keflex 500 mg capsule RxNorm: 066164 1 Capsule(s) PO TID 05/29/2015 06/07/2015 Inactive nystatin (bulk) 100 million unit powder RxNorm: 1 Application TOP TID 05/29/2015 06/18/2015 Inactive ceftriaxone 500 mg solution for injection RxNorm: 3698109 Inj 05/29/2015 05/29/2015 Inactive Fioricet 50 mg-325 mg-40 mg tablet RxNorm: 976818 1 Tablet(s) PO Q6 PRN as needed 04/20/2015 07/18/2015 Inactive Bactroban 2 % topical ointment RxNorm: 410632 1 TOP BID 03/26/2015 No Stop Date Active Align 4 mg capsule RxNorm: 617227 1 Capsule(s) PO daily 03/19/2015 12/28/2016 Inactive Singulair 10 mg tablet RxNorm: 526781 TAKE 1 TABLET DAILY 03/02/2015 02/24/2016 Inactive Bactroban 2 % topical ointment RxNorm: 751165 1 APPLICATION TOP BID 12/02/2014 12/11/2014 Inactive right nare ceftriaxone 500 mg solution for injection RxNorm: 856805 Inj 10/15/2014 10/15/2014 Inactive Keflex 500 mg capsule RxNorm: 081566 1 Capsule(s) PO BID 10/15/2014 10/28/2014 Inactive Kenalog 40 mg/mL suspension for injection RxNorm: 5399693 Milliliter(s) Inj 10/15/2014 10/15/2014 Inactive prednisone 20 mg tablet RxNorm: 939580 1 Tablet(s) PO daily 10/15/2014 10/24/2014 Inactive Tudorza Pressair 400 mcg/actuation breath activated RxNorm: 3247678 1 Puff(s) INH BID 10/15/2014 11/13/2014 Inactive gemfibrozil 600 mg tablet RxNorm: 286801 1 Tablet(s) PO TAKE ONE TABLET BY MOUTH TWICE DAILY 09/29/2014 06/25/2015 Inactive Celebrex 200 mg capsule RxNorm: 317989 1 Capsule(s) PO BID TAKE 1 CAPSULE TWICE DAILY 07/31/2014 07/25/2015 Inactive paroxetine 20 mg tablet RxNorm: 418900 TAKE ONE-HALF TABLET BY MOUTH EVERY DAY 07/15/2014 02/09/2015 Inactive Bactroban 2 % topical ointment RxNorm: 933425 1 Application TOP BID 04/10/2014 04/14/2014 Inactive right nare Singulair 10 mg tablet RxNorm: 386813 1 Tablet(s) PO daily TAKE 1 TABLET DAILY 02/27/2014 02/21/2015 Inactive Celebrex 200 mg capsule RxNorm: 120470 1 Capsule(s) PO BID TAKE 1 CAPSULE TWICE DAILY 02/27/2014 07/30/2014 Inactive ciprofloxacin 500 mg tablet RxNorm: 148529 1 Tablet(s) PO BID 02/17/2014 02/26/2014 Inactive prednisone 20 mg tablet RxNorm: 268550 1 Tablet(s) PO daily 02/17/2014 02/21/2014 Inactive Fioricet 50 mg-325 mg-40 mg tablet RxNorm: 273638 1 Tablet(s) PO Q6 PRN 02/17/2014 05/16/2014 Inactive Kenalog 40 mg/mL suspension for injection RxNorm: 4810143 Milliliter(s) Inj 02/17/2014 02/17/2014 Inactive Bactrim 400 mg-80 mg tablet RxNorm: 109839 1 Tablet(s) PO BID 12/25/2013 12/24/2013 Inactive Omnicef 300 mg capsule RxNorm: 924651 1 Capsule(s) PO BID 12/25/2013 01/03/2014 Inactive please dc the bactrim order. pt states she is allergic. Bactrim 400 mg-80 mg tablet RxNorm: 647911 1 Tablet(s) PO BID 12/25/2013 12/25/2013 Inactive gemfibrozil 600 mg tablet RxNorm: 445070 Tablet(s) PO TAKE ONE TABLET BY MOUTH TWICE DAILY 12/12/2013 09/28/2014 Inactive Rocephin 500 mg solution for injection RxNorm: 052331 Inj 12/05/2013 12/05/2013 Inactive Bactroban 2 % topical ointment RxNorm: 617999 1 Application TOP BID right nare 12/05/2013 12/11/2013 Inactive Keflex 500 mg capsule RxNorm: 818203 1 Capsule(s) PO BID 12/05/2013 12/11/2013 Inactive paroxetine 20 mg tablet RxNorm: 671374 Tablet(s) PO TAKE ONE-HALF TABLET BY MOUTH EVERY DAY 07/15/2013 07/14/2014 Inactive Influenza Virus Vaccine 0.5 mL RxNorm: IM 07/09/2013 07/09/2013 Inactive Singulair 10 mg tablet RxNorm: 051788 Tablet(s) PO TAKE 1 TABLET DAILY 05/30/2013 02/26/2014 Inactive Celebrex 200 mg capsule RxNorm: 810572 Capsule(s) PO TAKE 1 CAPSULE TWICE DAILY 04/13/2013 02/26/2014 Inactive Singulair 10 mg tablet RxNorm: 751946 1 Tablet(s) PO daily 02/28/2013 05/29/2013 Inactive gemfibrozil 600 mg tablet RxNorm: 027508 Tablet(s) PO TAKE ONE TABLET BY MOUTH TWICE DAILY 11/28/2012 12/11/2013 Inactive Rocephin 500 mg Solution for Injection RxNorm: 4647657 1 Milliliter(s) Inj 10/23/2012 10/23/2012 Inactive paroxetine 20 mg tablet RxNorm: 9888548 1/2 Tablet(s) PO daily 07/13/2012 07/14/2013 Inactive TAKE ONE-HALF TABLET BY MOUTH EVERY DAY Fioricet 50 mg-325 mg-40 mg tablet RxNorm: 276911 1 Tablet(s) PO Q6 PRN 04/17/2012 07/15/2012 Inactive gemfibrozil 600 mg tablet RxNorm: 317987 Tablet(s) PO 11/17/2011 11/27/2012 Inactive TAKE ONE TABLET BY MOUTH TWICE DAILY gemfibrozil 600 mg Tab RxNorm: 190925 1 Tablet(s) PO BID 11/16/2011 11/16/2011 Inactive MIDRIN 325 mg-65 mg-100 mg Cap RxNorm: 427290 1 Capsule(s) PO Q4-6H 09/15/2011 04/17/2012 Inactive max 8 tabs/24 hours Influenza Virus Vaccine 0.5 mL RxNorm: IM 07/05/2011 07/05/2011 Inactive Pulmicort Flexhaler 180 mcg/Inhalation Breath Activated RxNorm: 5722619 1 Puff(s) INH daily 06/27/2011 07/26/2011 Inactive Singulair 10 mg tablet RxNorm: 207604 1 Tablet(s) PO daily 06/27/2011 07/26/2011 Inactive Celebrex 200 mg capsule RxNorm: 456631 1 Capsule(s) PO BID 06/27/2011 04/12/2013 Inactive paroxetine 20 mg tablet RxNorm: 3100438 1/2 Tablet(s) PO daily 06/27/2011 07/13/2012 Inactive gemfibrozil 600 mg Tab RxNorm: 994354 1 Tablet(s) PO BID 06/27/2011 11/15/2011 Inactive requests 90 day supply-refilled but needs labs amaury. vitamin B6-vitamin E-magnesium Oral RxNorm: Oral No Start Date Active Advil Oral RxNorm: Oral No Start Date Active gabapentin 100 mg tablet RxNorm: 084481 1 Tablet(s) PO PRN No Start Date Active ranitidine 150 mg tablet RxNorm: 308620 1 Tablet(s) PO daily No Start Date Active Claritin 10 mg tablet RxNorm: 138058 1 Tablet(s) PO daily No Start Date Active Flexeril 5 mg Tab RxNorm: 672043 1/2-2 Tablet(s) PO PRN 1/2-1 po q 8 hours prn back pain or muscle spasms No Start Date Active Dulera 200 mcg-5 mcg/actuation HFA aerosol inhaler RxNorm: 3602932 1 INH BID No Start Date Active gabapentin 300 mg capsule RxNorm: 627052 1 Capsule(s) PO TID No Start Date Active folic acid Oral RxNorm: Oral No Start Date Active baclofen 20 mg tablet RxNorm: 953530 1 Tablet(s) PO TID as needed No Start Date Active vitamin T23-mbhypza B1 Oral RxNorm: Oral No Start Date Active chlordiazepoxide-clidinium 5 mg-2.5 mg Cap RxNorm: 310252 1 Capsule(s) PO PRN For IBS No Start Date Active Singulair 10 mg Tab RxNorm: 749926 1 Tablet(s) PO daily No Start Date 06/26/2011 Inactive Omnicef 300 mg capsule RxNorm: 163066 1 Capsule(s) PO BID No Start Date 12/24/2013 Inactive albuterol sulfate HFA 90 mcg/Actuation Aerosol Inhaler RxNorm: 6038085 1-2 Puff(s) INH Q4 PRN No Start Date 08/23/2015 Inactive sample and rX provided aspirin 81 mg Tab, Delayed Release RxNorm: 065437 1 Tablet(s) PO BID No Start Date 12/28/2016 Inactive Tudorza Pressair 400 mcg/actuation Breath Activated RxNorm: 7992627 1 Puff(s) INH BID No Start Date 10/14/2014 Inactive niacin ER 500 mg Tab RxNorm: 7525331 1 Tablet(s) PO QHS No Start Date 02/27/2013 Inactive Celebrex 200 mg Cap RxNorm: 647669 1 Capsule(s) PO BID No Start Date 06/26/2011 Inactive loratadine 10 mg Tab RxNorm: 659030 1 Tablet(s) PO daily No Start Date 02/27/2013 Inactive Nasonex 50 mcg/Actuation [place] RxNorm: 210644 2 [place] NASAL BID No Start Date 06/26/2011 Inactive Zithromax Z-Marty 250 mg Tab RxNorm: 427339 Tablet(s) PO No Start Date 07/11/2011 Inactive 2 tabs today, then tabs 2-5 daily Zithromax Z-Marty 250 mg tablet RxNorm: 685708 Tablet(s) PO UD No Start Date 04/21/2013 Inactive Tessalon Perles 100 mg Cap RxNorm: 598612 1 Capsule(s) PO PRN No Start Date 07/11/2011 Inactive albuterol sulfate HFA 90 mcg/Actuation Aerosol Inhaler RxNorm: 9225316 Inhalation No Start Date 06/27/2011 Inactive Nasacort AQ 55 mcg Nasal [place] Aerosol RxNorm: 6265245 1 [place] NASAL PRN No Start Date 12/28/2016 Inactive gemfibrozil 600 mg Tab RxNorm: 408662 1 Tablet(s) PO BID No Start Date 06/26/2011 Inactive Zofran ODT 4 mg disintegrating tablet RxNorm: 773783 1 Tablet(s) PO Q8 as needed No Start Date 04/14/2019 Inactive Xanax 0.25 mg tablet RxNorm: 865906 1 Tablet(s) PO TID as needed No Start Date 04/14/2019 Inactive Pulmicort Flexhaler 180 mcg/Inhalation Breath Activated RxNorm: 0964070 1 INH daily No Start Date 06/26/2011 Inactive paroxetine 20 mg Tab RxNorm: 4662021 1/2 Tablet(s) PO daily No Start Date 06/26/2011 Inactive MIDRIN 325 mg-65 mg-100 mg Cap RxNorm: 961298 1 Capsule(s) PO Q4-6H No Start Date 09/14/2011 Inactive max 8 tabs/24 hours beta carotene Oral RxNorm: Oral No Start Date 12/28/2016 Inactive Medication Administered Medication Codes Instructions Start Date Status Kenalog 40 mg/mL suspension for injection RxNorm: 3576682 1Milliliter 02/02/2018 No longer Active Kenalog 40 mg/mL suspension for injection RxNorm: 8229840 [place] 08/21/2017 No longer Active Kenalog 40 mg/mL suspension for injection RxNorm: 2955320 [place] 06/30/2017 No longer Active Kenalog 40 mg/mL suspension for injection RxNorm: 7005958 [place] 05/09/2017 No longer Active Kenalog 40 mg/mL suspension for injection RxNorm: 4889292 1.5Milliliter 01/30/2017 No longer Active Kenalog 40 mg/mL suspension for injection RxNorm: 5706183 [place] 05/29/2015 No longer Active ceftriaxone 500 mg solution for injection RxNorm: 7412529 05/29/2015 No longer Active Kenalog 40 mg/mL suspension for injection RxNorm: 1848566 [place] 10/15/2014 No longer Active ceftriaxone 500 mg solution for injection RxNorm: 638659 10/15/2014 No longer Active Kenalog 40 mg/mL suspension for injection RxNorm: 2639513 [place] 02/17/2014 No longer Active Rocephin 500 mg solution for injection RxNorm: 222029 12/05/2013 No longer Active Influenza Virus Vaccine 0.5 mL RxNorm: 07/09/2013 No longer Active Rocephin 500 mg Solution for Injection RxNorm: 3824790 1Milliliter 10/23/2012 No longer Active Influenza Virus [...] 11/18/2008 completed Assessments Condition Codes Effective Dates Mild intermittent asthma, uncomplicated ICD-10: J45.20 ICD-9: 493.20 01/24/2019 Essential (primary) hypertension ICD-10: I10 ICD-9: 401.9 01/24/2019 Encounter for follow-up examination after completed treatment for conditions other than malignant neoplasm ICD-10: Z09 ICD-9: V67.59 12/03/2018 Low back pain ICD-10: M54.5 ICD-9: 724.2 12/03/2018 Postherpetic trigeminal neuralgia ICD-10: B02.22 ICD-9: 053.12 11/19/2018 Chronic obstructive pulmonary disease with (acute) exacerbation ICD-10: J44.1 ICD-9: 491.21 11/07/2018 Chronic frontal sinusitis ICD-10: J32.1 ICD-9: 478.19 09/04/2018 Mild intermittent asthma with (acute) exacerbation ICD-10: J45.21 ICD-9: 493.90 07/10/2018 Other retention of urine ICD-10: R33.8 ICD-9: 788.29 07/10/2018 Encounter for immunization ICD-10: Z23 ICD-9: V04.81 06/28/2018 Personal history of other diseases of the musculoskeletal system and connective tissue ICD-10: Z87.39 ICD-9: V13.59 06/19/2018 Primary hyperparathyroidism ICD-10: E21.0 ICD-9: 252.01 06/19/2018 Dysuria ICD-10: R30.0 ICD-9: 788.1 06/15/2018 Sciatica, right side ICD-10: M54.31 ICD-9: 724.3 01/29/2018 Shortness of breath ICD-10: R06.02 ICD-9: 786.05 01/08/2018 Encounter for general adult medical examination with abnormal findings ICD-10: Z00.01 ICD-9: V70.0 01/08/2018 Mixed hyperlipidemia ICD-10: E78.2 ICD-9: 272.4 [...] 477.0 08/24/2015 VACCIN FOR INFLUENZA ICD-9: V04.81 07/10/2015 Well woman exam ICD-9: V70.0 06/12/2015 Pelvic and perineal pain ICD-10: R10.2 ICD-9: GAN3476 06/12/2015 Encounter for screening for malignant neoplasm of vagina ICD- 10: Z12.72 ICD-9: V76.47 06/12/2015 ACUTE MAXILLARY SINUSITIS ICD-9: 461.0 05/29/2015 Tinea corporis ICD-9: 110.5 05/29/2015 Skin tag ICD-9: 701.9 03/26/2015 IMPACTED CERUMEN ICD-9: 380.4 03/26/2015 Comedone ICD-9: 706.1 03/26/2015 Seborrheic keratoses ICD-9: 702.19 03/26/2015 Fatigue ICD-9: 780.79 03/17/2015 HYPERLIPIDEMIA ICD-9: 272.4 03/17/2015 ESSENTIAL HYPERTENSION ICD-9: 401.9 03/17/2015 INSECT BITE HIP/LEG ICD-9: 916.4 03/17/2015 Acute bronchitis ICD-9: 466.0 10/15/2014 CHRONIC OBSTRUCTIVE ASTHMA WITH EXACERBATION ICD-9: 493.22 10/15/2014 COUGH ICD-9: 786.2 10/15/2014 Acute anterior epistaxis ICD-9: 784.7 04/10/2014 Nasal congestion ICD-9: 478.19 02/17/2014 ACUTE SINUSITIS ICD-9: 461.9 12/05/2013 GENERAL OSTEOARTHROSIS-MULT ICD-9: 715.09 09/25/2013 CHRONIC OBSTRUCTIVE ASTHMA ICD-9: 493.20 09/25/2013 SLEEP APNEA NOS ICD-9: 780.57 09/25/2013 OSTEOARTH NOS-UNSPEC ICD-9: 715.90 03/22/2013 Encounter for long-term (current) use of medications ICD-9: V58.69 03/14/2012 PAIN IN LIMB ICD-9: 729.5 09/28/2011 ROUTINE PHYSICL LAB EXAM ICD-9: V72.62 06/28/2011 Asthma ICD-9: 493.90 06/27/2011 Reason For Visit Reason For Visit Effective Dates Notes hypertension 01/24/2019 sciatica 12/03/2018 hypertension 11/19/2018 hypertension 11/07/2018 hypertension 09/04/2018 improving [...] NO Growth Day 2 06/19/2018 Parathyroid Hormone Ypa801 PTH 81.40 pg/ml 05/10/2018 Comp Metabolic Wke494 NA 142 mEq/L 05/10/2018 Comp Metabolic Rab769 K 4.1 mEq/L 05/10/2018 Comp Metabolic Cit594 CL 105 mEq/L 05/10/2018 Comp Metabolic Ubq888 CO2 27.0 mEq/L 05/10/2018 Comp Metabolic Crk060 ANION GAP 14 05/10/2018 Comp Metabolic Dat732 GLUCOSE 95 mg/dL 05/10/2018 Comp Metabolic Iyx732 Creat 0.9 mg/dL 05/10/2018 Comp Metabolic Grs211 eGFR 65 ml/min/1.73m2 05/10/2018 Comp Metabolic Tjq015 BUN 15 mg/dL 05/10/2018 Comp Metabolic Wxi935 B/C Ratio 16.9 Ratio 05/10/2018 Comp Metabolic Xcl200 CALCIUM 9.8 mg/dL 05/10/2018 Comp Metabolic Yuf637 ALK PHOS 77 U/L 05/10/2018 Comp Metabolic Zxj656 AST(SGOT) 24 U/L 05/10/2018 Comp Metabolic Kct683 ALT(SGPT) 23 U/L 05/10/2018 Comp Metabolic Fgy943 BILI T 0.5 mg/dL 05/10/2018 Comp Metabolic Xcf845 ALBUMIN 4.8 g/dL 05/10/2018 Comp Metabolic Cut799 TPRO 7.2 g/dL 05/10/2018 Comp Metabolic Wgb925 GLOB 2.5 g/dL 05/10/2018 Comp Metabolic Pda531 A/G Ratio 1.9 Ratio 05/10/2018 Comp Metabolic Ygz547 Osmo 284 mOsmo 05/10/2018 Vitamin D 25 Oh Ker9054 VITAMIN D, 25 HYDROXY 51.58 ng/mL 05/10/2018 Tsh Ord6 TSH (3rd IS) 5.32 [...] 41.1 % 05/10/2018 Cbc With Differential Ord2 MCH 32.1 pg 05/10/2018 Cbc With Differential Ord2 Love% 9.6 % 05/10/2018 Cbc With Differential Ord2 MCHC [...] 3.52 K/ul 05/10/2018 Cbc With Differential Ord2 Love ABS# 0.8 K/ul 05/10/2018 Cbc With Differential [...] 14.0 g/dl 01/09/2018 Cbc With Differential Ord2 HCT 41.7 % 01/09/2018 Cbc With Differential Ord2 Neut% 40.5 % 01/09/2018 Cbc With Differential Ord2 MCV 94.1 fl 01/09/2018 Cbc With Differential Ord2 Lymph% 43.2 % 01/09/2018 Cbc With Differential Ord2 MCH 31.6 pg 01/09/2018 Cbc With Differential Ord2 Love% 9.8 % 01/09/2018 Cbc With Differential Ord2 MCHC 33.6 pg 01/09/2018 Cbc With Differential Ord2 Eos% 6.4 % 01/09/2018 Cbc With Differential Ord2 PLT 395 K/ul 01/09/2018 Cbc With Differential Ord2 Baso% 0.1 % 01/09/2018 Cbc With Differential Ord2 RDW 12.5 % 01/09/2018 Cbc With Differential Ord2 Neut ABS# 2.86 K/ul 01/09/2018 Cbc With Differential Ord2 Lymph ABS# 3.05 K/ul 01/09/2018 Cbc With Differential Ord2 Love ABS# 0.7 K/ul 01/09/2018 Cbc With Differential Ord2 Eos ABS# 0.5 K/ul 01/09/2018 Cbc With Differential Ord2 Baso ABS# 0.0 K/ul 01/09/2018 Tsh Ord6 TSH (3rd IS) 3.12 uIU/mL 01/09/2018 Comp Metabolic Gla491 NA 140 mEq/L 01/09/2018 Comp Metabolic Cat531 K 4.0 mEq/L 01/09/2018 Comp Metabolic Djf075 CL 105 mEq/L 01/09/2018 Comp Metabolic Czs406 CO2 28.0 mEq/L 01/09/2018 Comp Metabolic Gds941 ANION GAP 11 01/09/2018 Comp Metabolic Owc483 GLUCOSE 98 mg/dL 01/09/2018 Comp Metabolic Zht593 Creat 0.7 mg/dL 01/09/2018 Comp Metabolic Ldq341 eGFR 87 ml/min/1.73m2 01/09/2018 Comp Metabolic Oyf159 BUN 14 mg/dL 01/09/2018 Comp Metabolic Gwg721 B/C Ratio 20.3 Ratio 01/09/2018 Comp Metabolic Mfr785 CALCIUM 9.8 mg/dL 01/09/2018 Comp Metabolic Emz033 ALK PHOS 113 U/L 01/09/2018 Comp Metabolic Iuf662 AST(SGOT) 22 U/L 01/09/2018 Comp Metabolic Jda259 ALT(SGPT) 22 U/L 01/09/2018 Comp Metabolic Htu953 BILI T 0.5 mg/dL 01/09/2018 Comp Metabolic Zef660 ALBUMIN 4.6 g/dL 01/09/2018 Comp Metabolic Eow541 TPRO 7.0 g/dL 01/09/2018 Comp Metabolic Esv887 GLOB 2.4 g/dL 01/09/2018 Comp Metabolic Eqv337 A/G Ratio 2.0 Ratio 01/09/2018 Comp Metabolic Mdo205 Osmo 280 mOsmo 01/09/2018 Lipid Ord30 CHOL 163 mg/dL 12/27/2016 Lipid Ord30 HDL 63.0 mg/dl 12/27/2016 Lipid Ord30 TRIG 62 mg/dL 12/27/2016 Lipid Ord30 LDL 88 mg/dL 12/27/2016 Lipid Ord30 C/HDL 2.6 Ratio 12/27/2016 Tsh Ord6 hTSH II 2.47 uIU/mL 12/27/2016 Comp Metabolic Vyr256 NA 140 mEq/L 12/27/2016 Comp Metabolic Rac309 K 4.0 mEq/L 12/27/2016 Comp Metabolic Zhd347 CL 105 mEq/L 12/27/2016 Comp Metabolic Gaa382 CO2 28.0 mEq/L 12/27/2016 Comp Metabolic Kqc630 ANION GAP 11 12/27/2016 Comp Metabolic Tii466 GLUCOSE 102 mg/dL 12/27/2016 Comp Metabolic Png250 Creat 0.7 mg/dL 12/27/2016 Comp Metabolic Cku302 eGFR 81 ml/min/1.73m2 12/27/2016 Comp Metabolic Iaz588 BUN 15 mg/dL 12/27/2016 Comp Metabolic Bap105 B/C Ratio 20.3 Ratio 12/27/2016 Comp Metabolic Qjs199 CALCIUM 10.0 mg/dL 12/27/2016 Comp Metabolic Agl788 ALK PHOS 110 U/L 12/27/2016 Comp Metabolic Bnn368 AST(SGOT) 20 U/L 12/27/2016 Comp Metabolic Kpn470 ALT(SGPT) 22 U/L 12/27/2016 Comp Metabolic Byx772 BILI T 0.5 mg/dL 12/27/2016 Comp Metabolic Oho051 ALBUMIN 4.7 g/dL 12/27/2016 Comp Metabolic Poy250 TPRO 7.2 g/dL 12/27/2016 Comp Metabolic Jlr398 GLOB 2.5 g/dL 12/27/2016 Comp Metabolic Tfz401 A/G Ratio 1.9 Ratio 12/27/2016 Comp Metabolic Rdy122 Osmo 280 mOsmo 12/27/2016 Cbc With Differential [...] 31.9 pg 12/27/2016 Cbc With Differential Ord2 Love% 8.6 % 12/27/2016 Cbc With Differential Ord2 [...] 3.60 K/ul 12/27/2016 Cbc With Differential Ord2 Love ABS# 0.6 K/ul 12/27/2016 Cbc With Differential [...] 43.3 % 06/13/2016 Cbc With Differential Ord2 MCH 31.7 pg 06/13/2016 Cbc With Differential Ord2 Love% 8.4 % 06/13/2016 Cbc With Differential Ord2 MCHC 33.9 pg 06/13/2016 Cbc With Differential Ord2 Eos% 13.7 % 06/13/2016 Cbc With Differential Ord2 PLT 361 K/ul 06/13/2016 Cbc With Differential Ord2 Baso% 0.3 % 06/13/2016 Cbc With Differential Ord2 RDW 12.5 % 06/13/2016 Cbc With Differential Ord2 Neut ABS# 2.59 K/ul 06/13/2016 Cbc With Differential Ord2 Lymph ABS# 3.26 K/ul 06/13/2016 Cbc With Differential Ord2 Love ABS# 0.6 K/ul 06/13/2016 Cbc With Differential Ord2 Eos ABS# 1.0 K/ul 06/13/2016 Cbc With Differential Ord2 Baso ABS# 0.0 K/ul 06/13/2016 Comp Metabolic Sfd513 NA 141 mEq/L 03/25/2016 Comp Metabolic Ynm228 K 4.0 mEq/L 03/25/2016 Comp Metabolic Ubb747 CL 103 mEq/L 03/25/2016 Comp Metabolic Xta582 CO2 28.0 mEq/L 03/25/2016 Comp Metabolic Uff559 ANION GAP 14 03/25/2016 Comp Metabolic Pwj346 GLUCOSE 91 mg/dL 03/25/2016 Comp Metabolic Eth551 Creat 0.8 mg/dL 03/25/2016 Comp Metabolic Glo843 eGFR 70 ml/min/1.73m2 03/25/2016 Comp Metabolic Hlv071 BUN 16 mg/dL 03/25/2016 Comp Metabolic Tjg257 B/C Ratio 19.0 Ratio 03/25/2016 Comp Metabolic Ekq167 CALCIUM 9.8 mg/dL 03/25/2016 Comp Metabolic Rmq989 ALK PHOS 111 U/L 03/25/2016 Comp Metabolic Lwb200 AST(SGOT) 19 U/L 03/25/2016 Comp Metabolic Toe704 ALT(SGPT) 19 U/L 03/25/2016 Comp Metabolic Ivm707 BILI T 0.6 mg/dL 03/25/2016 Comp Metabolic Fwe313 ALBUMIN 4.6 g/dL 03/25/2016 Comp Metabolic Agb156 TPRO 7.4 g/dL 03/25/2016 Comp Metabolic Ytu361 GLOB 2.8 g/dL 03/25/2016 Comp Metabolic Sau693 A/G Ratio 1.7 Ratio 03/25/2016 Comp Metabolic Ljl060 Osmo 282 mOsmo 03/25/2016 Tsh Ord6 hTSH [...] 32.0 pg 03/25/2016 Cbc With Differential Ord2 Love% 9.4 % 03/25/2016 Cbc With Differential Ord2 MCHC [...] 3.20 K/ul 03/25/2016 Cbc With Differential Ord2 Love ABS# 0.8 K/ul 03/25/2016 Cbc With Differential Ord2 Eos ABS# 0.8 K/ul 03/25/2016 Cbc With Differential Ord2 Baso ABS# 0.0 K/ul 03/25/2016 GFR CALC 5241449 GFR AA >60 ML/MIN 03/14/2012 GFR CALC 3136314 GFR NON-AA >60 ML/MIN 03/14/2012 TSH 1035760 TSH 2.609 uIU/ML 03/14/2012 LIPID GRP HDL TEST 63 MG/DL 03/14/2012 LIPID GRP TRIG 68 MG/DL 03/14/2012 LIPID GRP TEST LDL 88 MG/DL 03/14/2012 LIPID GRP CHOL 165 MG/DL 03/14/2012 LIPID GRP RCHOL/HDL 2.62 RATIO 03/14/2012 CHEM 14 6798878 AST 24 U/L 03/14/2012 CHEM 14 6482000 ALT 26 IU/L 03/14/2012 CHEM 14 7903323 BUN 17 MG/DL 03/14/2012 CHEM 14 1045281 ALBUMIN 4.8 GM/DL 03/14/2012 CHEM 14 5812284 CHLORIDE 106 MMOL/L 03/14/2012 CHEM 14 0715961 BILI TOT 0.6 MG/DL 03/14/2012 CHEM 14 4690601 ALK PHOS 115 U/L 03/14/2012 CHEM 14 4927764 SODIUM 141 MMOL/L 03/14/2012 CHEM 14 6457753 CREATININE 0.78 MG/DL 03/14/2012 CHEM 14 7750493 CALCIUM 9.9 MG/DL 03/14/2012 CHEM 14 2365241 POTASSIUM 4.2 MMOL/L 03/14/2012 CHEM 14 8298769 PROT TOT 7.4 GM/DL 03/14/2012 CHEM 14 5984564 GLUCOSE 91 MG/DL 03/14/2012 CHEM 14 4354688 BICARB 27 MMOL/L 03/14/2012 CHEM 14 5827256 ANION GAP 8 MEQ/L 03/14/2012 CBC 3507810 WBC 5.9 10e9/L 03/14/2012 CBC 5972987 RBC 4.62 10e12/L 03/14/2012 CBC 8264645 HGB 14.5 g/dL 03/14/2012 CBC 2137529 HCT DET 42.4 % 03/14/2012 CBC 1430202 MCV 91.8 fL 03/14/2012 CBC 7593561 MCH 31.4 pg 03/14/2012 CBC 0085632 MCHC 34.2 g/dL 03/14/2012 CBC 6108623 PLT 370 10e9/L 03/14/2012 CBC 6468442 MPV 10.2 fL 03/14/2012 CBC 9721157 NANO % 36.6 % 03/14/2012 CBC 3376351 LY % 47.6 % 03/14/2012 CBC 0067930 MON % 10.0 % 03/14/2012 CBC 7428058 EOS % 5.6 % 03/14/2012 CBC 2185396 BASO % 0.2 % 03/14/2012 CBC 4487630 RDW 12.3 % 03/14/2012 CBC 7730748 ABS NANO 2.16 10e9/L 03/14/2012 CBC 1658644 ABS LYMPH 2.81 10e9/L 03/14/2012 CBC 8254317 ABS MONO 0.59 10e9/L 03/14/2012 CBC 4134870 ABS EOS 0.33 10e9/L 03/14/2012 CBC 5307546 ABS BASO 0.01 10e9/L 03/14/2012 CBC 4441896 RDW-SD 40.4 fL 03/14/2012 Review of Systems System Result Effective Dates Constitutional recent illness 01/24/2019 Constitutional No anorexia 01/24/2019 Constitutional No night sweats 01/24/2019 Constitutional No chills 01/24/2019 Constitutional No diaphoresis 01/24/2019 Constitutional fatigue 01/24/2019 Constitutional No fever 01/24/2019 Eyes No eye discharge 01/24/2019 Eyes No eye erythema 01/24/2019 Ears/Nose/Throat/Neck No dizziness 01/24/2019 Ears/Nose/Throat/Neck No dysphagia 01/24/2019 Ears/Nose/Throat/Neck No headache 01/24/2019 Ears/Nose/Throat/Neck No hearing loss 01/24/2019 Ears/Nose/Throat/Neck No nasal allergies 01/24/2019 Ears/Nose/Throat/Neck nasal discharge 01/24/2019 Ears/Nose/Throat/Neck sore throat 01/24/2019 Ears/Nose/Throat/Neck No postnasal drip 01/24/2019 Ears/Nose/Throat/Neck No sinus congestion 01/24/2019 Cardiovascular No chest pain/pressure 01/24/2019 Cardiovascular dyspnea 01/24/2019 Cardiovascular fatigue 01/24/2019 Cardiovascular hypertension 01/24/2019 Respiratory No chest tightness 01/24/2019 Respiratory cough 01/24/2019 Gastrointestinal No abdominal pain 01/24/2019 Gastrointestinal No constipation 01/24/2019 Gastrointestinal No diarrhea 01/24/2019 Gastrointestinal No nausea 01/24/2019 Gastrointestinal No vomiting 01/24/2019 Genitourinary/Nephrology No dysuria 01/24/2019 Musculoskeletal stiffness 01/24/2019 Musculoskeletal arthralgia(s) 01/24/2019 Musculoskeletal No joint complaint 01/24/2019 Musculoskeletal sciatica 01/24/2019 Neurologic No dizziness 01/24/2019 Neurologic No headache 01/24/2019 Neurologic pain, facial 01/24/2019 Neurologic No neck pain 01/24/2019 Neurologic No syncope 01/24/2019 Neurologic weakness 01/24/2019 Psychiatric No anxiety 01/24/2019 Psychiatric No depression 01/24/2019 Constitutional No recent illness 12/03/2018 Constitutional No chills 12/03/2018 Constitutional No fever 12/03/2018 Eyes No eye erythema 12/03/2018 Ears/Nose/Throat/Neck No nasal discharge 12/03/2018 Cardiovascular No chest pain/pressure 12/03/2018 Cardiovascular No dyspnea 12/03/2018 Respiratory No cough 12/03/2018 Respiratory No dyspnea 12/03/2018 Neurologic No alteration of consciousness 12/03/2018 Neurologic No mental status change 12/03/2018 Musculoskeletal back pain 12/03/2018 Constitutional recent illness 11/19/2018 Constitutional No anorexia 11/19/2018 Constitutional No night sweats 11/19/2018 Constitutional No chills 11/19/2018 Constitutional No diaphoresis 11/19/2018 Constitutional fatigue 11/19/2018 Constitutional No fever 11/19/2018 Eyes No eye discharge 11/19/2018 Eyes No eye erythema 11/19/2018 Ears/Nose/Throat/Neck No dizziness 11/19/2018 Ears/Nose/Throat/Neck No dysphagia 11/19/2018 Ears/Nose/Throat/Neck No headache 11/19/2018 Ears/Nose/Throat/Neck No hearing loss 11/19/2018 Ears/Nose/Throat/Neck No nasal allergies 11/19/2018 Ears/Nose/Throat/Neck nasal discharge 11/19/2018 Ears/Nose/Throat/Neck No postnasal drip 11/19/2018 Ears/Nose/Throat/Neck No sinus congestion 11/19/2018 Cardiovascular No chest pain/pressure 11/19/2018 Cardiovascular dyspnea 11/19/2018 Cardiovascular fatigue 11/19/2018 Cardiovascular hypertension 11/19/2018 Respiratory No chest tightness 11/19/2018 Respiratory cough 11/19/2018 Gastrointestinal No abdominal pain 11/19/2018 Gastrointestinal No constipation 11/19/2018 Gastrointestinal No diarrhea 11/19/2018 Gastrointestinal No nausea 11/19/2018 Gastrointestinal No vomiting 11/19/2018 Genitourinary/Nephrology No dysuria 11/19/2018 Musculoskeletal stiffness 11/19/2018 Musculoskeletal arthralgia(s) 11/19/2018 Musculoskeletal No joint complaint 11/19/2018 Musculoskeletal sciatica 11/19/2018 Neurologic No dizziness 11/19/2018 Neurologic No headache 11/19/2018 Neurologic pain, facial 11/19/2018 Neurologic No neck pain 11/19/2018 Neurologic No syncope 11/19/2018 Neurologic weakness 11/19/2018 Psychiatric No anxiety 11/19/2018 Psychiatric No depression 11/19/2018 Constitutional recent illness 11/07/2018 Constitutional No anorexia 11/07/2018 Constitutional No night sweats 11/07/2018 Constitutional No chills 11/07/2018 Constitutional No diaphoresis 11/07/2018 Constitutional fatigue 11/07/2018 Constitutional No fever 11/07/2018 Eyes No eye discharge 11/07/2018 Eyes No eye erythema 11/07/2018 Ears/Nose/Throat/Neck No dizziness 11/07/2018 Ears/Nose/Throat/Neck No dysphagia 11/07/2018 Ears/Nose/Throat/Neck No headache 11/07/2018 Ears/Nose/Throat/Neck No hearing loss 11/07/2018 Ears/Nose/Throat/Neck No nasal allergies 11/07/2018 Ears/Nose/Throat/Neck nasal discharge 11/07/2018 Ears/Nose/Throat/Neck sore throat 11/07/2018 Ears/Nose/Throat/Neck No postnasal drip 11/07/2018 Ears/Nose/Throat/Neck No sinus congestion 11/07/2018 Cardiovascular No chest pain/pressure 11/07/2018 Cardiovascular dyspnea 11/07/2018 Cardiovascular fatigue 11/07/2018 Cardiovascular hypertension 11/07/2018 Respiratory No chest tightness 11/07/2018 Respiratory cough 11/07/2018 Gastrointestinal No abdominal pain 11/07/2018 Gastrointestinal No constipation 11/07/2018 Gastrointestinal No diarrhea 11/07/2018 Gastrointestinal No nausea 11/07/2018 Gastrointestinal No vomiting 11/07/2018 Genitourinary/Nephrology No dysuria 11/07/2018 Musculoskeletal stiffness 11/07/2018 Musculoskeletal arthralgia(s) 11/07/2018 Musculoskeletal No joint complaint 11/07/2018 Musculoskeletal sciatica 11/07/2018 Neurologic No dizziness 11/07/2018 Neurologic No headache 11/07/2018 Neurologic No neck pain 11/07/2018 Neurologic No syncope 11/07/2018 Psychiatric No anxiety 11/07/2018 Psychiatric No depression 11/07/2018 Neurologic pain, facial 11/07/2018 Neurologic weakness 11/07/2018 Constitutional No anorexia 09/04/2018 Constitutional No night sweats 09/04/2018 Constitutional No chills 09/04/2018 Constitutional No diaphoresis 09/04/2018 Constitutional fatigue 09/04/2018 Constitutional No fever 09/04/2018 Eyes No eye discharge 09/04/2018 Eyes No eye erythema 09/04/2018 Ears/Nose/Throat/Neck No dizziness 09/04/2018 Ears/Nose/Throat/Neck No dysphagia 09/04/2018 Ears/Nose/Throat/Neck No headache 09/04/2018 Ears/Nose/Throat/Neck No hearing loss 09/04/2018 Ears/Nose/Throat/Neck No nasal allergies 09/04/2018 Ears/Nose/Throat/Neck sore throat 09/04/2018 Ears/Nose/Throat/Neck No postnasal drip 09/04/2018 Ears/Nose/Throat/Neck No sinus congestion 09/04/2018 Cardiovascular No chest pain/pressure 09/04/2018 Cardiovascular dyspnea 09/04/2018 Cardiovascular fatigue 09/04/2018 Respiratory No chest tightness 09/04/2018 Respiratory cough 09/04/2018 Gastrointestinal No abdominal pain 09/04/2018 Gastrointestinal No constipation 09/04/2018 Gastrointestinal No diarrhea 09/04/2018 Gastrointestinal No nausea 09/04/2018 Gastrointestinal No vomiting 09/04/2018 Genitourinary/Nephrology No dysuria 09/04/2018 Musculoskeletal stiffness 09/04/2018 Musculoskeletal arthralgia(s) 09/04/2018 Musculoskeletal No joint complaint 09/04/2018 Musculoskeletal sciatica 09/04/2018 Dermatologic No rash 09/04/2018 Dermatologic No sores 09/04/2018 Neurologic No dizziness 09/04/2018 Neurologic No headache 09/04/2018 Neurologic No neck pain 09/04/2018 Neurologic No syncope 09/04/2018 Psychiatric No anxiety 09/04/2018 Psychiatric No depression 09/04/2018 Ears/Nose/Throat/Neck nasal discharge 09/04/2018 Cardiovascular hypertension 09/04/2018 Constitutional recent illness 07/10/2018 Constitutional No anorexia 07/10/2018 Constitutional No night sweats 07/10/2018 Constitutional No chills 07/10/2018 Constitutional No diaphoresis 07/10/2018 Constitutional fatigue 07/10/2018 Constitutional No fever 07/10/2018 Eyes No eye discharge 07/10/2018 Eyes No eye erythema 07/10/2018 Ears/Nose/Throat/Neck No dental pain 07/10/2018 Ears/Nose/Throat/Neck No dizziness 07/10/2018 Ears/Nose/Throat/Neck No dysphagia 07/10/2018 Ears/Nose/Throat/Neck No headache 07/10/2018 Ears/Nose/Throat/Neck No hearing loss 07/10/2018 Ears/Nose/Throat/Neck No nasal allergies 07/10/2018 Ears/Nose/Throat/Neck No sore throat 07/10/2018 Ears/Nose/Throat/Neck No postnasal drip 07/10/2018 Ears/Nose/Throat/Neck No sinus congestion 07/10/2018 Cardiovascular No chest pain/pressure 07/10/2018 Cardiovascular dyspnea 07/10/2018 Cardiovascular fatigue 07/10/2018 Respiratory chest tightness 07/10/2018 Respiratory cough 07/10/2018 Gastrointestinal No abdominal pain 07/10/2018 Gastrointestinal No constipation 07/10/2018 Gastrointestinal No diarrhea 07/10/2018 Gastrointestinal No nausea 07/10/2018 Gastrointestinal No vomiting 07/10/2018 Genitourinary/Nephrology No dysuria 07/10/2018 Musculoskeletal stiffness 07/10/2018 Musculoskeletal arthralgia(s) 07/10/2018 Musculoskeletal No joint complaint 07/10/2018 Musculoskeletal sciatica 07/10/2018 Dermatologic No rash 07/10/2018 Dermatologic No sores 07/10/2018 Neurologic No dizziness 07/10/2018 Neurologic No headache 07/10/2018 Neurologic No neck pain 07/10/2018 Neurologic No syncope 07/10/2018 Psychiatric No anxiety 07/10/2018 Psychiatric No depression 07/10/2018 Constitutional No recent illness 06/19/2018 Constitutional No chills 06/19/2018 Constitutional No diaphoresis 06/19/2018 Constitutional No fever 06/19/2018 Eyes No eye discharge 06/19/2018 Eyes No eye erythema 06/19/2018 Ears/Nose/Throat/Neck nasal allergies 06/19/2018 Ears/Nose/Throat/Neck nasal discharge 06/19/2018 Ears/Nose/Throat/Neck postnasal drip 06/19/2018 Ears/Nose/Throat/Neck sinus congestion 06/19/2018 Ears/Nose/Throat/Neck sore throat 06/19/2018 Cardiovascular No chest pain/pressure 06/19/2018 Respiratory asthma 06/19/2018 Respiratory productive sputum 06/19/2018 Respiratory cough 06/19/2018 Respiratory dyspnea on exertion 06/19/2018 Gastrointestinal No abdominal pain 06/19/2018 Gastrointestinal No constipation 06/19/2018 Gastrointestinal No diarrhea 06/19/2018 Genitourinary/Nephrology No dysuria 06/19/2018 Musculoskeletal No joint complaint 06/19/2018 Neurologic No alteration of consciousness 06/19/2018 Neurologic No mental status change 06/19/2018 Dermatologic rash 06/19/2018 Constitutional No recent illness 01/29/2018 Constitutional No chills 01/29/2018 Constitutional No fever 01/29/2018 Eyes No eye erythema 01/29/2018 Ears/Nose/Throat/Neck No nasal discharge 01/29/2018 Cardiovascular No chest pain/pressure 01/29/2018 Cardiovascular No dyspnea 01/29/2018 Respiratory No cough 01/29/2018 Respiratory No dyspnea 01/29/2018 Musculoskeletal joint complaint 01/29/2018 Neurologic No alteration of consciousness 01/29/2018 Neurologic No mental status change 01/29/2018 Constitutional No recent illness 01/08/2018 Constitutional No chills 01/08/2018 Constitutional No diaphoresis 01/08/2018 Constitutional No fever 01/08/2018 Eyes No blindness 01/08/2018 Ears/Nose/Throat/Neck No nasal allergies 01/08/2018 Ears/Nose/Throat/Neck No nasal discharge 01/08/2018 Cardiovascular No chest pain/pressure 01/08/2018 Cardiovascular No dyspnea 01/08/2018 Respiratory dyspnea 01/08/2018 Gastrointestinal No abdominal pain 01/08/2018 Gastrointestinal No constipation 01/08/2018 Gastrointestinal No diarrhea 01/08/2018 Gastrointestinal No nausea 01/08/2018 Gastrointestinal No vomiting 01/08/2018 Musculoskeletal No joint complaint 01/08/2018 Dermatologic No rash 01/08/2018 Neurologic No alteration of consciousness 01/08/2018 Neurologic No mental status change 01/08/2018 Respiratory dyspnea on exertion 01/08/2018 Constitutional No recent illness 08/21/2017 Constitutional No chills 08/21/2017 Constitutional No diaphoresis 08/21/2017 Constitutional No fever 08/21/2017 Eyes No eye discharge 08/21/2017 Eyes No eye erythema 08/21/2017 Ears/Nose/Throat/Neck nasal allergies 08/21/2017 Ears/Nose/Throat/Neck nasal discharge 08/21/2017 Cardiovascular No chest pain/pressure 08/21/2017 Respiratory productive sputum 08/21/2017 Respiratory cough 08/21/2017 Respiratory dyspnea on exertion 08/21/2017 Gastrointestinal No abdominal pain 08/21/2017 Gastrointestinal No constipation 08/21/2017 Gastrointestinal No diarrhea 08/21/2017 Genitourinary/Nephrology No dysuria 08/21/2017 Musculoskeletal No joint complaint 08/21/2017 Neurologic No alteration of consciousness 08/21/2017 Ears/Nose/Throat/Neck sinus congestion 08/21/2017 Ears/Nose/Throat/Neck sore throat 08/21/2017 Ears/Nose/Throat/Neck postnasal drip 08/21/2017 Respiratory asthma 08/21/2017 Neurologic No mental status change 08/21/2017 Constitutional recent illness 07/18/2017 Constitutional No anorexia 07/18/2017 Constitutional No night sweats 07/18/2017 Constitutional No chills 07/18/2017 Constitutional No diaphoresis 07/18/2017 Constitutional fatigue 07/18/2017 Constitutional No fever 07/18/2017 Eyes No eye discharge 07/18/2017 Eyes No eye erythema 07/18/2017 Cardiovascular No chest pain/pressure 07/18/2017 Cardiovascular dyspnea 07/18/2017 Cardiovascular fatigue 07/18/2017 Respiratory chest tightness 07/18/2017 Respiratory cough 07/18/2017 Gastrointestinal No abdominal pain 07/18/2017 Gastrointestinal No constipation 07/18/2017 Gastrointestinal No diarrhea 07/18/2017 Gastrointestinal No nausea 07/18/2017 Gastrointestinal No vomiting 07/18/2017 Genitourinary/Nephrology No dysuria 07/18/2017 Musculoskeletal No joint complaint 07/18/2017 Dermatologic No rash 07/18/2017 Dermatologic No sores 07/18/2017 Psychiatric No anxiety 07/18/2017 Psychiatric No depression 07/18/2017 Musculoskeletal stiffness 07/18/2017 Musculoskeletal arthralgia(s) 07/18/2017 Musculoskeletal sciatica 07/18/2017 Neurologic No dizziness 07/18/2017 Neurologic No headache 07/18/2017 Neurologic No neck pain 07/18/2017 Neurologic No syncope 07/18/2017 Ears/Nose/Throat/Neck No dental pain 07/18/2017 Ears/Nose/Throat/Neck No dizziness 07/18/2017 Ears/Nose/Throat/Neck No dysphagia 07/18/2017 Ears/Nose/Throat/Neck No headache 07/18/2017 Ears/Nose/Throat/Neck No hearing loss 07/18/2017 Ears/Nose/Throat/Neck No nasal allergies 07/18/2017 Ears/Nose/Throat/Neck No sore throat 07/18/2017 Ears/Nose/Throat/Neck No postnasal drip 07/18/2017 Ears/Nose/Throat/Neck No sinus congestion 07/18/2017 Respiratory productive sputum 06/30/2017 Respiratory cough 06/30/2017 Constitutional No recent illness 06/30/2017 Constitutional No anorexia 06/30/2017 Constitutional No night sweats 06/30/2017 Constitutional No chills 06/30/2017 Constitutional No diaphoresis 06/30/2017 Constitutional fatigue 06/30/2017 Constitutional No fever 06/30/2017 Constitutional No insomnia 06/30/2017 Constitutional No malaise 06/30/2017 Constitutional No weight loss 06/30/2017 Constitutional No weight gain 06/30/2017 Eyes No eye discharge 06/30/2017 Eyes No eye erythema 06/30/2017 Ears/Nose/Throat/Neck No dizziness 06/30/2017 Ears/Nose/Throat/Neck No headache 06/30/2017 Ears/Nose/Throat/Neck nasal allergies 06/30/2017 Ears/Nose/Throat/Neck nasal discharge 06/30/2017 Cardiovascular No chest pain/pressure 06/30/2017 Respiratory dyspnea on exertion 06/30/2017 Gastrointestinal No abdominal pain 06/30/2017 Gastrointestinal No constipation 06/30/2017 Gastrointestinal No diarrhea 06/30/2017 Genitourinary/Nephrology No dysuria 06/30/2017 Musculoskeletal No joint complaint 06/30/2017 Dermatologic No rash 06/30/2017 Neurologic No alteration of consciousness 06/30/2017 Constitutional No recent illness 05/08/2017 Constitutional No chills 05/08/2017 Constitutional No diaphoresis 05/08/2017 Constitutional No fever 05/08/2017 Eyes No eye erythema 05/08/2017 Ears/Nose/Throat/Neck No nasal discharge 05/08/2017 Ears/Nose/Throat/Neck No nasal allergies 05/08/2017 Ears/Nose/Throat/Neck dizziness 05/08/2017 Ears/Nose/Throat/Neck No postnasal drip 05/08/2017 Cardiovascular No chest pain/pressure 05/08/2017 Cardiovascular No dyspnea 05/08/2017 Cardiovascular near-syncope/dizziness 05/08/2017 Respiratory No cough 05/08/2017 Respiratory No dyspnea 05/08/2017 Respiratory No chest congestion 05/08/2017 Gastrointestinal No abdominal pain 05/08/2017 Gastrointestinal No constipation 05/08/2017 Gastrointestinal No diarrhea 05/08/2017 Gastrointestinal No vomiting 05/08/2017 Gastrointestinal No nausea 05/08/2017 Musculoskeletal back pain 05/08/2017 Dermatologic No rash 05/08/2017 Neurologic No alteration of consciousness 05/08/2017 Neurologic No mental status change 05/08/2017 Constitutional No chills 02/14/2017 Constitutional No insomnia 02/14/2017 Eyes No eye discharge 02/14/2017 Eyes No eye erythema 02/14/2017 Ears/Nose/Throat/Neck No hoarseness 02/14/2017 Ears/Nose/Throat/Neck No nasal discharge 02/14/2017 Cardiovascular No chest pain/pressure 02/14/2017 Cardiovascular No dyspnea 02/14/2017 Cardiovascular No edema 02/14/2017 Cardiovascular No syncope 02/14/2017 Respiratory No chest congestion 02/14/2017 Respiratory No chest tightness 02/14/2017 Respiratory No cough 02/14/2017 Respiratory No dyspnea on exertion 02/14/2017 Respiratory No dyspnea 02/14/2017 Respiratory No wheezing 02/14/2017 Gastrointestinal No anorexia 02/14/2017 Gastrointestinal No constipation 02/14/2017 Gastrointestinal No diarrhea 02/14/2017 Gastrointestinal No nausea 02/14/2017 Gastrointestinal No vomiting 02/14/2017 Dermatologic No rash 02/14/2017 Psychiatric No anxiety 02/14/2017 Psychiatric No depression 02/14/2017 Musculoskeletal No stiffness 02/14/2017 Musculoskeletal No swelling 02/14/2017 Musculoskeletal No muscle weakness 02/14/2017 Musculoskeletal No myalgias 02/14/2017 Constitutional No chills 01/31/2017 Constitutional No insomnia 01/31/2017 Eyes No eye discharge 01/31/2017 Eyes No eye erythema 01/31/2017 Ears/Nose/Throat/Neck No hoarseness 01/31/2017 Ears/Nose/Throat/Neck No nasal discharge 01/31/2017 Cardiovascular No chest pain/pressure 01/31/2017 Cardiovascular No dyspnea 01/31/2017 Cardiovascular No edema 01/31/2017 Cardiovascular No syncope 01/31/2017 Respiratory No chest congestion 01/31/2017 Respiratory No chest tightness 01/31/2017 Respiratory No cough 01/31/2017 Respiratory No dyspnea on exertion 01/31/2017 Respiratory No dyspnea 01/31/2017 Respiratory No wheezing 01/31/2017 Gastrointestinal No anorexia 01/31/2017 Gastrointestinal No constipation 01/31/2017 Gastrointestinal No diarrhea 01/31/2017 Gastrointestinal No nausea 01/31/2017 Gastrointestinal No vomiting 01/31/2017 Dermatologic No rash 01/31/2017 Psychiatric No anxiety 01/31/2017 Psychiatric No depression 01/31/2017 Constitutional recent illness 01/30/2017 Constitutional No anorexia 01/30/2017 Constitutional No night sweats 01/30/2017 Constitutional No chills 01/30/2017 Constitutional No diaphoresis 01/30/2017 Constitutional fatigue 01/30/2017 Constitutional fever 01/30/2017 Constitutional No insomnia 01/30/2017 Constitutional No malaise 01/30/2017 Constitutional No weight loss 01/30/2017 Constitutional No weight gain 01/30/2017 Eyes No eye erythema 01/30/2017 Eyes No eye discharge 01/30/2017 Ears/Nose/Throat/Neck No dizziness 01/30/2017 Ears/Nose/Throat/Neck headache 01/30/2017 Ears/Nose/Throat/Neck nasal allergies 01/30/2017 Ears/Nose/Throat/Neck nasal discharge 01/30/2017 Ears/Nose/Throat/Neck sore throat 01/30/2017 Ears/Nose/Throat/Neck sinus congestion 01/30/2017 Cardiovascular No chest pain/pressure 01/30/2017 Cardiovascular No dyspnea 01/30/2017 Cardiovascular No edema 01/30/2017 Respiratory No productive sputum 01/30/2017 Respiratory chest congestion 01/30/2017 Respiratory cough 01/30/2017 Respiratory asthma 01/30/2017 Gastrointestinal No abdominal pain 01/30/2017 Genitourinary/Nephrology No dysuria 01/30/2017 Musculoskeletal No joint complaint 01/30/2017 Dermatologic No rash 01/30/2017 Musculoskeletal No myalgias 01/30/2017 Neurologic No alteration of consciousness 01/30/2017 Constitutional No recent illness 01/02/2017 Constitutional No chills 01/02/2017 Constitutional No diaphoresis 01/02/2017 Constitutional No fever 01/02/2017 Eyes No eye erythema 01/02/2017 Ears/Nose/Throat/Neck No nasal allergies 01/02/2017 Ears/Nose/Throat/Neck No nasal discharge 01/02/2017 Cardiovascular No chest pain/pressure 01/02/2017 Cardiovascular No dyspnea 01/02/2017 Respiratory No dyspnea 01/02/2017 Gastrointestinal No abdominal pain 01/02/2017 Gastrointestinal No constipation 01/02/2017 Gastrointestinal No diarrhea 01/02/2017 Gastrointestinal No nausea 01/02/2017 Gastrointestinal No vomiting 01/02/2017 Musculoskeletal No joint complaint 01/02/2017 Dermatologic No rash 01/02/2017 Neurologic No alteration of consciousness 01/02/2017 Neurologic No mental status change 01/02/2017 Constitutional No chills 12/29/2016 Constitutional No insomnia 12/29/2016 Eyes No eye discharge 12/29/2016 Eyes No eye erythema 12/29/2016 Ears/Nose/Throat/Neck No hoarseness 12/29/2016 Ears/Nose/Throat/Neck No nasal discharge 12/29/2016 Cardiovascular No chest pain/pressure 12/29/2016 Cardiovascular No dyspnea 12/29/2016 Cardiovascular No edema 12/29/2016 Cardiovascular No syncope 12/29/2016 Respiratory No chest congestion 12/29/2016 Respiratory No chest tightness 12/29/2016 Respiratory No cough 12/29/2016 Respiratory No dyspnea on exertion 12/29/2016 Respiratory No dyspnea 12/29/2016 Respiratory No wheezing 12/29/2016 Gastrointestinal No anorexia 12/29/2016 Gastrointestinal No constipation 12/29/2016 Gastrointestinal No diarrhea 12/29/2016 Gastrointestinal No nausea 12/29/2016 Gastrointestinal No vomiting 12/29/2016 Dermatologic No rash 12/29/2016 Psychiatric No anxiety 12/29/2016 Psychiatric No depression 12/29/2016 Ears/Nose/Throat/Neck epistaxis 04/01/2016 Constitutional No recent illness 03/24/2016 Constitutional No anorexia 03/24/2016 Constitutional No night sweats 03/24/2016 Constitutional No chills 03/24/2016 Constitutional No diaphoresis 03/24/2016 Constitutional fatigue 03/24/2016 Constitutional No fever 03/24/2016 Constitutional No insomnia 03/24/2016 Constitutional No malaise 03/24/2016 Constitutional No weight loss 03/24/2016 Constitutional No weight gain 03/24/2016 Constitutional No obesity 03/24/2016 Respiratory cough 03/24/2016 Respiratory No cigarette smoking 03/24/2016 Respiratory chest tightness 03/24/2016 Respiratory No chest congestion 03/24/2016 Ears/Nose/Throat/Neck nasal discharge 03/24/2016 Ears/Nose/Throat/Neck nasal allergies 03/24/2016 Ears/Nose/Throat/Neck epistaxis 03/24/2016 Ears/Nose/Throat/Neck No otitis media 03/24/2016 Ears/Nose/Throat/Neck No otalgia 03/24/2016 Ears/Nose/Throat/Neck No sinus congestion 03/24/2016 Respiratory dyspnea on exertion 03/24/2016 Respiratory dyspnea 03/24/2016 Cardiovascular No chest pain/pressure 03/24/2016 Cardiovascular No dyspnea 03/24/2016 Cardiovascular No edema 03/24/2016 Gastrointestinal No constipation 03/24/2016 Gastrointestinal No diarrhea 03/24/2016 Gastrointestinal No abdominal pain 03/24/2016 Genitourinary/Nephrology No dysuria 03/24/2016 Genitourinary/Nephrology urinary retention/hesitancy 03/24/2016 Genitourinary/Nephrology urinary frequency 03/24/2016 Genitourinary/Nephrology No urinary urgency 03/24/2016 Genitourinary/Nephrology No urinary incontinence 03/24/2016 Endocrine flushing 03/24/2016 Psychiatric No depression 03/24/2016 Psychiatric No anxiety 03/24/2016 Musculoskeletal No muscle weakness 03/24/2016 Musculoskeletal No joint complaint 03/24/2016 Musculoskeletal No myalgias 03/24/2016 Dermatologic No sores 03/24/2016 Dermatologic No rash 03/24/2016 Eyes No eye discharge 03/24/2016 Eyes No eye erythema 03/24/2016 Constitutional recent illness 09/25/2015 Constitutional No anorexia 09/25/2015 Constitutional No night sweats 09/25/2015 Constitutional No chills 09/25/2015 Constitutional No diaphoresis 09/25/2015 Constitutional No fatigue 09/25/2015 Constitutional No fever 09/25/2015 Constitutional No insomnia 09/25/2015 Constitutional No malaise 09/25/2015 Eyes No eye discharge 09/25/2015 Eyes No eye erythema 09/25/2015 Ears/Nose/Throat/Neck No dizziness 09/25/2015 Ears/Nose/Throat/Neck No headache 09/25/2015 Cardiovascular No chest pain/pressure 09/25/2015 Respiratory No chest congestion 09/25/2015 Respiratory No cough 09/25/2015 Gastrointestinal No abdominal pain 09/25/2015 Gastrointestinal No constipation 09/25/2015 Gastrointestinal No diarrhea 09/25/2015 Musculoskeletal No joint complaint 09/25/2015 Dermatologic No rash 09/25/2015 Dermatologic No sores 09/25/2015 Neurologic No alteration of consciousness 09/25/2015 Ears/Nose/Throat/Neck No nasal allergies 09/25/2015 Ears/Nose/Throat/Neck No nasal discharge 09/25/2015 Respiratory No productive sputum 09/25/2015 Respiratory asthma 09/25/2015 Constitutional recent illness 08/24/2015 Constitutional No anorexia 08/24/2015 Constitutional No night sweats 08/24/2015 Constitutional No chills 08/24/2015 Constitutional No diaphoresis 08/24/2015 Constitutional No fatigue 08/24/2015 Constitutional No fever 08/24/2015 Constitutional No insomnia 08/24/2015 Constitutional No malaise 08/24/2015 Constitutional No weight loss 08/24/2015 Constitutional No weight gain 08/24/2015 Eyes No eye discharge 08/24/2015 Eyes No eye erythema 08/24/2015 Ears/Nose/Throat/Neck No dizziness 08/24/2015 Ears/Nose/Throat/Neck No headache 08/24/2015 Ears/Nose/Throat/Neck nasal allergies 08/24/2015 Ears/Nose/Throat/Neck nasal discharge 08/24/2015 Ears/Nose/Throat/Neck otalgia 08/24/2015 Ears/Nose/Throat/Neck sinus congestion 08/24/2015 Ears/Nose/Throat/Neck sore throat 08/24/2015 Cardiovascular No chest pain/pressure 08/24/2015 Respiratory productive sputum 08/24/2015 Respiratory chest congestion 08/24/2015 Respiratory cough 08/24/2015 Gastrointestinal No abdominal pain 08/24/2015 Gastrointestinal No constipation 08/24/2015 Gastrointestinal No diarrhea 08/24/2015 Genitourinary/Nephrology No dysuria 08/24/2015 Musculoskeletal No joint complaint 08/24/2015 Dermatologic No rash 08/24/2015 Dermatologic No sores 08/24/2015 Neurologic No alteration of consciousness 08/24/2015 Psychiatric No anxiety 08/24/2015 Constitutional recent illness 06/12/2015 Constitutional No anorexia 06/12/2015 Constitutional No night sweats 06/12/2015 Constitutional chills 06/12/2015 Constitutional diaphoresis 06/12/2015 Constitutional No fatigue 06/12/2015 Constitutional No fever 06/12/2015 Constitutional No insomnia 06/12/2015 Constitutional No malaise 06/12/2015 Constitutional No weight loss 06/12/2015 Constitutional No weight gain 06/12/2015 Eyes No eye discharge 06/12/2015 Eyes No eye erythema 06/12/2015 Ears/Nose/Throat/Neck No dizziness 06/12/2015 Ears/Nose/Throat/Neck headache 06/12/2015 Ears/Nose/Throat/Neck nasal allergies 06/12/2015 Ears/Nose/Throat/Neck nasal discharge 06/12/2015 Ears/Nose/Throat/Neck No otalgia 06/12/2015 Ears/Nose/Throat/Neck sinus congestion 06/12/2015 Ears/Nose/Throat/Neck sore throat 06/12/2015 Cardiovascular No chest pain/pressure 06/12/2015 Respiratory No productive sputum 06/12/2015 Respiratory No chest congestion 06/12/2015 Respiratory cough 06/12/2015 Gastrointestinal No abdominal pain 06/12/2015 Gastrointestinal No constipation 06/12/2015 Gastrointestinal No diarrhea 06/12/2015 Genitourinary/Nephrology No dysuria 06/12/2015 Musculoskeletal No joint complaint 06/12/2015 Dermatologic rash 06/12/2015 Genitourinary/Nephrology pelvic pain 06/12/2015 Constitutional recent illness 05/29/2015 Constitutional No anorexia 05/29/2015 Constitutional No night sweats 05/29/2015 Constitutional chills 05/29/2015 Constitutional diaphoresis 05/29/2015 Constitutional No fatigue 05/29/2015 Constitutional No fever 05/29/2015 Constitutional No insomnia 05/29/2015 Constitutional No malaise 05/29/2015 Constitutional No weight loss 05/29/2015 Constitutional No weight gain 05/29/2015 Eyes No eye erythema 05/29/2015 Eyes No eye discharge 05/29/2015 Ears/Nose/Throat/Neck No dizziness 05/29/2015 Ears/Nose/Throat/Neck headache 05/29/2015 Ears/Nose/Throat/Neck nasal allergies 05/29/2015 Ears/Nose/Throat/Neck nasal discharge 05/29/2015 Ears/Nose/Throat/Neck No otalgia 05/29/2015 Ears/Nose/Throat/Neck sinus congestion 05/29/2015 Ears/Nose/Throat/Neck sore throat 05/29/2015 Cardiovascular No chest pain/pressure 05/29/2015 Respiratory No productive sputum 05/29/2015 Respiratory No chest congestion 05/29/2015 Respiratory cough 05/29/2015 Gastrointestinal No abdominal pain 05/29/2015 Gastrointestinal No constipation 05/29/2015 Gastrointestinal No diarrhea 05/29/2015 Genitourinary/Nephrology No dysuria 05/29/2015 Musculoskeletal No joint complaint 05/29/2015 Dermatologic rash 05/29/2015 Constitutional No night sweats 03/26/2015 Constitutional No chills 03/26/2015 Constitutional fatigue 03/26/2015 Constitutional No fever 03/26/2015 Respiratory dyspnea 03/26/2015 Gastrointestinal No constipation 03/26/2015 Gastrointestinal diarrhea 03/26/2015 Gastrointestinal No nausea 03/26/2015 Gastrointestinal No vomiting 03/26/2015 Musculoskeletal No back pain 03/26/2015 Dermatologic No rash 03/26/2015 Dermatologic arthropod bite 03/26/2015 Neurologic No hearing loss 03/26/2015 Neurologic No paresthesia 03/26/2015 Neurologic No speech difficulties 03/26/2015 Psychiatric No anxiety 03/26/2015 Psychiatric No depression 03/26/2015 Gastrointestinal No constipation 03/17/2015 Gastrointestinal diarrhea 03/17/2015 Gastrointestinal No nausea 03/17/2015 Gastrointestinal No vomiting 03/17/2015 Respiratory dyspnea 03/17/2015 Musculoskeletal No back pain 03/17/2015 Constitutional No fever 03/17/2015 Constitutional No chills 03/17/2015 Constitutional No night sweats 03/17/2015 Constitutional fatigue 03/17/2015 Dermatologic No rash 03/17/2015 Dermatologic arthropod bite 03/17/2015 Neurologic No hearing loss 03/17/2015 Neurologic No paresthesia 03/17/2015 Neurologic No speech difficulties 03/17/2015 Psychiatric No anxiety 03/17/2015 Psychiatric No depression 03/17/2015 Constitutional recent illness 10/15/2014 Constitutional No anorexia 10/15/2014 Constitutional No night sweats 10/15/2014 Constitutional No chills 10/15/2014 Constitutional No diaphoresis 10/15/2014 Constitutional fatigue 10/15/2014 Constitutional No fever 10/15/2014 Eyes No eye discharge 10/15/2014 Eyes No eye erythema 10/15/2014 Cardiovascular No chest pain/pressure 10/15/2014 Cardiovascular dyspnea 10/15/2014 Cardiovascular fatigue 10/15/2014 Respiratory chest tightness 10/15/2014 Respiratory cough 10/15/2014 Gastrointestinal No abdominal pain 10/15/2014 Gastrointestinal No constipation 10/15/2014 Gastrointestinal No diarrhea 10/15/2014 Gastrointestinal No nausea 10/15/2014 Gastrointestinal No vomiting 10/15/2014 Genitourinary/Nephrology No dysuria 10/15/2014 Musculoskeletal No joint complaint 10/15/2014 Dermatologic No rash 10/15/2014 Dermatologic No sores 10/15/2014 Constitutional No recent illness 04/10/2014 Constitutional No anorexia 04/10/2014 Constitutional No night sweats 04/10/2014 Constitutional No chills 04/10/2014 Constitutional No diaphoresis 04/10/2014 Constitutional fatigue 04/10/2014 Constitutional No fever 04/10/2014 Constitutional No insomnia 04/10/2014 Constitutional No malaise 04/10/2014 Eyes No eye discharge 04/10/2014 Eyes No eye erythema 04/10/2014 Ears/Nose/Throat/Neck No dizziness 04/10/2014 Ears/Nose/Throat/Neck nasal allergies 04/10/2014 Ears/Nose/Throat/Neck nasal discharge 04/10/2014 Respiratory No cough 04/10/2014 Cardiovascular No chest pain/pressure 04/10/2014 Dermatologic No rash 04/10/2014 Dermatologic No sores 04/10/2014 Musculoskeletal No joint complaint 04/10/2014 Constitutional recent illness 02/17/2014 Constitutional No anorexia 02/17/2014 Constitutional No night sweats 02/17/2014 Constitutional No chills 02/17/2014 Constitutional No diaphoresis 02/17/2014 Constitutional fatigue 02/17/2014 Constitutional No fever 02/17/2014 Eyes No eye discharge 02/17/2014 Eyes No eye erythema 02/17/2014 Gastrointestinal No abdominal pain 02/17/2014 Gastrointestinal No constipation 02/17/2014 Gastrointestinal No diarrhea 02/17/2014 Gastrointestinal No nausea 02/17/2014 Gastrointestinal No vomiting 02/17/2014 Genitourinary/Nephrology No dysuria 02/17/2014 Musculoskeletal No joint complaint 02/17/2014 Dermatologic No rash 02/17/2014 Dermatologic No sores 02/17/2014 Respiratory cough 02/17/2014 Respiratory chest tightness 02/17/2014 Cardiovascular No chest pain/pressure 02/17/2014 Cardiovascular dyspnea 02/17/2014 Cardiovascular fatigue 02/17/2014 Constitutional recent illness 12/05/2013 Constitutional No anorexia 12/05/2013 Constitutional No night sweats 12/05/2013 Constitutional No chills 12/05/2013 Constitutional No diaphoresis 12/05/2013 Constitutional fatigue 12/05/2013 Constitutional No fever 12/05/2013 Eyes No eye discharge 12/05/2013 Eyes No eye erythema 12/05/2013 Cardiovascular No chest pain/pressure 12/05/2013 Respiratory No productive sputum 12/05/2013 Respiratory No chest congestion 12/05/2013 Respiratory No cough 12/05/2013 Gastrointestinal No abdominal pain 12/05/2013 Gastrointestinal No constipation 12/05/2013 Gastrointestinal No diarrhea 12/05/2013 Gastrointestinal No nausea 12/05/2013 Gastrointestinal No vomiting 12/05/2013 Genitourinary/Nephrology No dysuria 12/05/2013 Musculoskeletal No joint complaint 12/05/2013 Dermatologic No rash 12/05/2013 Dermatologic No sores 12/05/2013 Constitutional No chills 09/25/2013 Constitutional No insomnia 09/25/2013 Eyes No eye discharge 09/25/2013 Eyes No eye erythema 09/25/2013 Ears/Nose/Throat/Neck No hoarseness 09/25/2013 Ears/Nose/Throat/Neck No nasal discharge 09/25/2013 Cardiovascular No chest pain/pressure 09/25/2013 Cardiovascular No dyspnea 09/25/2013 Cardiovascular No edema 09/25/2013 Cardiovascular No syncope 09/25/2013 Respiratory No chest congestion 09/25/2013 Respiratory No chest tightness 09/25/2013 Respiratory No cough 09/25/2013 Respiratory No dyspnea on exertion 09/25/2013 Respiratory No dyspnea 09/25/2013 Respiratory No wheezing 09/25/2013 Gastrointestinal No anorexia 09/25/2013 Gastrointestinal No constipation 09/25/2013 Gastrointestinal No diarrhea 09/25/2013 Gastrointestinal No nausea 09/25/2013 Gastrointestinal No vomiting 09/25/2013 Dermatologic No rash 09/25/2013 Psychiatric No anxiety 09/25/2013 Psychiatric No depression 09/25/2013 Constitutional No chills 07/09/2013 Constitutional No insomnia 07/09/2013 Eyes No eye discharge 07/09/2013 Eyes No eye erythema 07/09/2013 Ears/Nose/Throat/Neck No hoarseness 07/09/2013 Ears/Nose/Throat/Neck No nasal discharge 07/09/2013 Cardiovascular No chest pain/pressure 07/09/2013 Cardiovascular No dyspnea 07/09/2013 Cardiovascular No edema 07/09/2013 Cardiovascular No syncope 07/09/2013 Respiratory No chest congestion 07/09/2013 Respiratory No chest tightness 07/09/2013 Respiratory No cough 07/09/2013 Respiratory No dyspnea on exertion 07/09/2013 Respiratory No dyspnea 07/09/2013 Respiratory No wheezing 07/09/2013 Gastrointestinal No anorexia 07/09/2013 Gastrointestinal No constipation 07/09/2013 Gastrointestinal No diarrhea 07/09/2013 Gastrointestinal No nausea 07/09/2013 Gastrointestinal No vomiting 07/09/2013 Dermatologic No rash 07/09/2013 Psychiatric No anxiety 07/09/2013 Psychiatric No depression 07/09/2013 Constitutional No chills 2013 Constitutional No insomnia 2013 Eyes No eye discharge 2013 Eyes No eye erythema 2013 Ears/Nose/Throat/Neck No hoarseness 2013 Ears/Nose/Throat/Neck No nasal discharge 2013 Cardiovascular No chest pain/pressure 2013 Cardiovascular No dyspnea 2013 Cardiovascular No edema 2013 Cardiovascular No syncope 2013 Respiratory No chest congestion 2013 Respiratory No chest tightness 2013 Respiratory No cough 2013 Respiratory No dyspnea on exertion 2013 Respiratory No dyspnea 2013 Respiratory No wheezing 2013 Gastrointestinal No anorexia 2013 Gastrointestinal No constipation 2013 Gastrointestinal No diarrhea 2013 Gastrointestinal No nausea 2013 Gastrointestinal No vomiting 2013 Dermatologic No rash 2013 Psychiatric No anxiety 2013 Psychiatric No depression 2013 Constitutional No chills 03/22/2013 Constitutional No insomnia 03/22/2013 Eyes No eye discharge 03/22/2013 Eyes No eye erythema 03/22/2013 Ears/Nose/Throat/Neck No hoarseness 03/22/2013 Ears/Nose/Throat/Neck No nasal discharge 03/22/2013 Cardiovascular No chest pain/pressure 03/22/2013 Cardiovascular No dyspnea 03/22/2013 Cardiovascular No edema 03/22/2013 Cardiovascular No syncope 03/22/2013 Respiratory No chest congestion 03/22/2013 Respiratory No chest tightness 03/22/2013 Respiratory No cough 03/22/2013 Respiratory No dyspnea on exertion 03/22/2013 Respiratory No dyspnea 03/22/2013 Respiratory No wheezing 03/22/2013 Gastrointestinal No anorexia 03/22/2013 Gastrointestinal No constipation 03/22/2013 Gastrointestinal No diarrhea 03/22/2013 Gastrointestinal No nausea 03/22/2013 Gastrointestinal No vomiting 03/22/2013 Dermatologic No rash 03/22/2013 Psychiatric No anxiety 03/22/2013 Psychiatric No depression 03/22/2013 Respiratory No chest tightness 02/28/2013 Respiratory No cough 02/28/2013 Respiratory No dyspnea on exertion 02/28/2013 Respiratory No dyspnea 02/28/2013 Respiratory No wheezing 02/28/2013 Gastrointestinal No anorexia 02/28/2013 Gastrointestinal No constipation 02/28/2013 Gastrointestinal No diarrhea 02/28/2013 Gastrointestinal No nausea 02/28/2013 Gastrointestinal No vomiting 02/28/2013 Dermatologic No rash 02/28/2013 Psychiatric No anxiety 02/28/2013 Psychiatric No depression 02/28/2013 Constitutional No chills 02/28/2013 Constitutional No insomnia 02/28/2013 Eyes No eye discharge 02/28/2013 Eyes No eye erythema 02/28/2013 Ears/Nose/Throat/Neck No hoarseness 02/28/2013 Ears/Nose/Throat/Neck No nasal discharge 02/28/2013 Cardiovascular No chest pain/pressure 02/28/2013 Cardiovascular No dyspnea 02/28/2013 Cardiovascular No edema 02/28/2013 Cardiovascular No syncope 02/28/2013 Respiratory No chest congestion 02/28/2013 Constitutional recent illness 10/23/2012 Constitutional No anorexia 10/23/2012 Constitutional No night sweats 10/23/2012 Constitutional No chills 10/23/2012 Constitutional No diaphoresis 10/23/2012 Constitutional fatigue 10/23/2012 Constitutional No fever 10/23/2012 Eyes No eye erythema 10/23/2012 Eyes No eye discharge 10/23/2012 Cardiovascular No chest pain/pressure 10/23/2012 Respiratory No productive sputum 10/23/2012 Respiratory No chest congestion 10/23/2012 Respiratory No cough 10/23/2012 Gastrointestinal No abdominal pain 10/23/2012 Gastrointestinal No constipation 10/23/2012 Gastrointestinal No diarrhea 10/23/2012 Gastrointestinal No nausea 10/23/2012 Gastrointestinal No vomiting 10/23/2012 Genitourinary/Nephrology No dysuria 10/23/2012 Musculoskeletal No joint complaint 10/23/2012 Dermatologic No rash 10/23/2012 Dermatologic No sores 10/23/2012 Constitutional No chills 03/08/2012 Constitutional No fatigue 03/08/2012 Constitutional No insomnia 03/08/2012 Eyes No eye discharge 03/08/2012 Eyes No eye erythema 03/08/2012 Ears/Nose/Throat/Neck No hoarseness 03/08/2012 Ears/Nose/Throat/Neck No nasal discharge 03/08/2012 Cardiovascular No chest pain/pressure 03/08/2012 Cardiovascular No dyspnea 03/08/2012 Cardiovascular No edema 03/08/2012 Cardiovascular No syncope 03/08/2012 Respiratory No chest congestion 03/08/2012 Respiratory No chest tightness 03/08/2012 Respiratory No cough 03/08/2012 Respiratory No dyspnea on exertion 03/08/2012 Respiratory No dyspnea 03/08/2012 Respiratory No wheezing 03/08/2012 Gastrointestinal No anorexia 03/08/2012 Gastrointestinal No constipation 03/08/2012 Gastrointestinal No diarrhea 03/08/2012 Gastrointestinal No nausea 03/08/2012 Gastrointestinal No vomiting 03/08/2012 Dermatologic No rash 03/08/2012 Psychiatric No anxiety 03/08/2012 Psychiatric No depression 03/08/2012 Constitutional No chills 09/28/2011 Constitutional No fatigue 09/28/2011 Constitutional No insomnia 09/28/2011 Eyes No eye discharge 09/28/2011 Eyes No eye erythema 09/28/2011 Ears/Nose/Throat/Neck No hoarseness 09/28/2011 Ears/Nose/Throat/Neck No nasal discharge 09/28/2011 Cardiovascular No chest pain/pressure 09/28/2011 Cardiovascular No dyspnea 09/28/2011 Cardiovascular No edema 09/28/2011 Cardiovascular No syncope 09/28/2011 Respiratory No chest congestion 09/28/2011 Respiratory No chest tightness 09/28/2011 Respiratory No cough 09/28/2011 Respiratory No dyspnea on exertion 09/28/2011 Respiratory No dyspnea 09/28/2011 Respiratory No wheezing 09/28/2011 Gastrointestinal No anorexia 09/28/2011 Gastrointestinal No constipation 09/28/2011 Gastrointestinal No diarrhea 09/28/2011 Gastrointestinal No nausea 09/28/2011 Gastrointestinal No vomiting 09/28/2011 Dermatologic No rash 09/28/2011 Psychiatric No anxiety 09/28/2011 Psychiatric No depression 09/28/2011 Eyes No eye discharge 06/27/2011 Eyes No eye erythema 06/27/2011 Ears/Nose/Throat/Neck facial pain 06/27/2011 Ears/Nose/Throat/Neck headache 06/27/2011 Ears/Nose/Throat/Neck No hoarseness 06/27/2011 Ears/Nose/Throat/Neck nasal allergies 06/27/2011 Ears/Nose/Throat/Neck No nasal discharge 06/27/2011 Ears/Nose/Throat/Neck sinus congestion 06/27/2011 Ears/Nose/Throat/Neck sore throat 06/27/2011 Ears/Nose/Throat/Neck postnasal drip 06/27/2011 Cardiovascular No chest pain/pressure 06/27/2011 Cardiovascular No edema 06/27/2011 Cardiovascular No dyspnea 06/27/2011 Cardiovascular No syncope 06/27/2011 Respiratory No cough 06/27/2011 Respiratory No chest congestion 06/27/2011 Respiratory No chest tightness 06/27/2011 Respiratory No dyspnea on exertion 06/27/2011 Respiratory No dyspnea 06/27/2011 Respiratory No wheezing 06/27/2011 Gastrointestinal No nausea 06/27/2011 Gastrointestinal No vomiting 06/27/2011 Gastrointestinal No anorexia 06/27/2011 Gastrointestinal No diarrhea 06/27/2011 Gastrointestinal No constipation 06/27/2011 Dermatologic No rash 06/27/2011 Constitutional recent illness 06/27/2011 Constitutional No chills 06/27/2011 Constitutional No fatigue 06/27/2011 Constitutional fever 06/27/2011 Constitutional No insomnia 06/27/2011 Physical Exam Exam Name System Name Item Name Status Result Effective Dates Notes Full Exam - General 1994 Constitutional general appearance Overall: well developed 01/24/2019 None Full Exam - General 1994 Constitutional general appearance Overall: in no acute distress 01/24/2019 None Full Exam - General 1994 Constitutional general appearance Overall: well nourished 01/24/2019 None Full Exam - General 1994 Eyes pupils and irises Overall: pupils equal, round, reactive to light and accomodation 01/24/2019 facial flattening on right from hair-line to chin Full Exam - General 1994 Ears/Nose/Throat otoscopic exam Overall: external auditory canals clear 01/24/2019 None Full Exam - General 1994 Ears/Nose/Throat otoscopic exam Overall: tympanic membranes clear 01/24/2019 None Full Exam - General 1995 Ears/Nose/Throat oral cavity/pharynx/larynx Overall: oral mucosa clear 01/24/2019 None Full Exam - General 1995 Ears/Nose/Throat oral cavity/pharynx/larynx Overall: oropharyngeal mucosa clear 01/24/2019 None Full Exam - General 1994 Ears/Nose/Throat oral cavity/pharynx/larynx Overall: no masses 01/24/2019 None Full Exam - General 1994 Respiratory auscultation Overall: breath sounds clear bilaterally 01/24/2019 None Full Exam - General 1994 Respiratory respiratory effort/rhythm Overall: no retractions 01/24/2019 None Full Exam - General 1994 Respiratory respiratory effort/rhythm Overall: normal rate 01/24/2019 None Full Exam - General 1994 Cardiovascular auscultation of heart Overall: regular rate 01/24/2019 None Full Exam - General 1994 Cardiovascular auscultation of heart Overall: normal heart sounds 01/24/2019 None Full Exam - General 1994 Neurologic gait Overall: no ataxia, no unsteadiness 01/24/2019 None Full Exam - General 1994 Neurologic cranial nerves CN5: sensation decreased in V1 01/24/2019 on right Full Exam - General 1994 Neurologic cranial nerves CN5: sensation decreased in V2 01/24/2019 on right Full Exam - General 1994 Neurologic cranial nerves CN5: sensation decreased in V3 01/24/2019 on right Full Exam - General 1994 Psychiatric orientation/consciousness Overall: oriented to person, place and time 01/24/2019 None Full Exam - General 1994 Psychiatric mood and affect Overall: normal mood and affect 01/24/2019 None Full Exam - General 1994 Abdomen abdominal exam Overall: no tenderness 01/24/2019 None Full Exam - General 1994 Abdomen abdominal exam Overall: normal bowel sounds 01/24/2019 None Full Exam - Orthopedics Constitutional general appearance Overall: well nourished 12/03/2018 None Full Exam - Orthopedics Constitutional general appearance Overall: well developed 12/03/2018 None Full Exam - Orthopedics Constitutional general appearance Overall: in no acute distress 12/03/2018 None Full Exam - Orthopedics Eyes conjunctiva/eyelids Overall: conjunctiva clear 12/03/2018 None Full Exam - Orthopedics Eyes conjunctiva/eyelids Overall: eyelids normal 12/03/2018 None Full Exam - Orthopedics Ears/Nose/Throat lips/teeth/gingiva Overall: benign lips 12/03/2018 None Full Exam - Orthopedics Ears/Nose/Throat oral cavity/pharynx/larynx Overall: oral mucosa clear 12/03/2018 None Full Exam - Orthopedics Respiratory respiratory effort/rhythm Overall: no retractions 12/03/2018 None Full Exam - Orthopedics Respiratory respiratory effort/rhythm Overall: normal rate 12/03/2018 None Full Exam - Orthopedics Psychiatric orientation/consciousness Overall: oriented to person, place and time 12/03/2018 None Full Exam - Orthopedics Psychiatric mood and affect Overall: normal mood and affect 12/03/2018 None Full Exam - Orthopedics Psychiatric appearance Overall: well-groomed, good eye contact 12/03/2018 None Full Exam - Orthopedics MS: head/neck insp & palp - H/N Overall: head atraumatic 12/03/2018 None Full Exam - Orthopedics MS: spine/rib/pelvis insp & palp - S/R/P Sacroiliac palpation: right sacroiliac joint tenderness 12/03/2018 None Full Exam - General 1994 Constitutional [...] None Full Exam - General 1994 Eyes conjunctiva/eyelids Overall: conjunctiva clear 06/19/2018 None Full Exam - General 1994 Eyes conjunctiva/eyelids Overall: eyelids normal 06/19/2018 None Full Exam [...] 01/29/2018 None Full Exam - Orthopedics Eyes conjunctiva/eyelids Overall: conjunctiva clear 01/29/2018 None Full Exam - Orthopedics Eyes conjunctiva/eyelids Overall: eyelids normal 01/29/2018 None Full Exam [...] None Full Exam - General 1994 Eyes conjunctiva/eyelids Overall: conjunctiva clear 01/08/2018 None Full Exam - General 1994 Eyes conjunctiva/eyelids Overall: eyelids normal 01/08/2018 None Full Exam [...] ENT Ears/Nose/Throat otoscopic exam Left tympanic membrane: air-fluid level 08/21/2017 None Full Exam - ENT Ears/Nose/Throat lips/teeth/gingiva Overall: benign lips 08/21/2017 None Full Exam [...] None Full Exam - ENT Neurologic cranial nerves/coordination Overall: cranial nerves 2-12 grossly intact 08/21/2017 None Full Exam - [...] ENT Ears/Nose/Throat otoscopic exam Left tympanic membrane: air-fluid level 06/30/2017 None Full Exam - ENT Ears/Nose/Throat otoscopic exam Right tympanic membrane: not visualized 06/30/2017 None Full Exam - ENT Ears/Nose/Throat external ear and nose Overall: normal appearance 06/30/2017 None Full Exam - ENT Ears/Nose/Throat nasal mucosa, septum, turbinates Overall: nasal mucosa clear 06/30/2017 None Full Exam - ENT Ears/Nose/Throat lips/teeth/gingiva Overall: benign lips 06/30/2017 None Full Exam - ENT Ears/Nose/Throat oropharynx Overall: oral mucosa clear 06/30/2017 None Full Exam - ENT Face and Head inspection of face/head Overall: no scars, lesions, masses 06/30/2017 None Full Exam - ENT Neck inspection of neck Overall: normal size 06/30/2017 None Full Exam - ENT Neck [...] None Full Exam - ENT Neurologic cranial nerves/coordination Overall: cranial nerves 2-12 grossly intact 06/30/2017 None Full Exam - [...] None Full Exam - General 1994 Eyes conjunctiva/eyelids Overall: conjunctiva clear 05/08/2017 None Full Exam - General 1994 Eyes conjunctiva/eyelids Overall: eyelids normal 05/08/2017 None Full Exam [...] ENT Ears/Nose/Throat otoscopic exam Left tympanic membrane: air-fluid level 01/30/2017 None Full Exam - ENT Ears/Nose/Throat otoscopic exam Right tympanic membrane: not visualized 01/30/2017 None Full Exam - ENT Ears/Nose/Throat external ear and nose Overall: normal appearance 01/30/2017 None Full Exam - ENT Ears/Nose/Throat nasal mucosa, septum, turbinates Overall: nasal mucosa clear 01/30/2017 None Full Exam - ENT Ears/Nose/Throat lips/teeth/gingiva Overall: benign lips 01/30/2017 None Full Exam [...] Neck inspection of neck Overall: normal size 01/30/2017 None Full Exam - ENT Neck [...] None Full Exam - ENT Neurologic cranial nerves/coordination Overall: cranial nerves 2-12 grossly intact 01/30/2017 None Full Exam - General 1994 Constitutional general appearance Overall: well developed 01/02/2017 None Full Exam - General 1994 Constitutional general appearance Overall: in no acute distress 01/02/2017 None Full Exam - General 1994 Constitutional general appearance Overall: well nourished 01/02/2017 None Full Exam - General 1994 Eyes conjunctiva/eyelids Overall: conjunctiva clear 01/02/2017 None Full Exam - General 1994 Eyes conjunctiva/eyelids Overall: eyelids normal 01/02/2017 None Full Exam [...] 09/25/2015 None Full Exam - ENT Ears/Nose/Throat lips/teeth/gingiva Overall: benign lips 09/25/2015 None Full Exam - ENT Ears/Nose/Throat oropharynx Overall: oral mucosa clear 09/25/2015 None Full Exam - ENT Neck inspection of neck Overall: normal size 09/25/2015 None Full Exam - ENT Neck [...] None Full Exam - ENT Neurologic cranial nerves/coordination Overall: cranial nerves 2-12 grossly intact 09/25/2015 None Full Exam - [...] ENT Ears/Nose/Throat otoscopic exam Left tympanic membrane: air-fluid level 08/24/2015 None Full Exam - ENT Ears/Nose/Throat external ear and nose Overall: normal appearance 08/24/2015 None Full Exam - ENT Ears/Nose/Throat nasal mucosa, septum, turbinates Overall: nasal mucosa clear 08/24/2015 None Full Exam - ENT Ears/Nose/Throat lips/teeth/gingiva Overall: benign lips 08/24/2015 None Full Exam [...] Neck inspection of neck Overall: normal size 08/24/2015 None Full Exam - ENT Neck [...] None Full Exam - ENT Neurologic cranial nerves/coordination Overall: cranial nerves 2-12 grossly intact 08/24/2015 None Full Exam - [...] ENT Ears/Nose/Throat otoscopic exam Left tympanic membrane: air-fluid level 05/29/2015 None Full Exam - ENT Ears/Nose/Throat otoscopic exam Right tympanic membrane: air-fluid level 05/29/2015 None Full Exam - ENT Ears/Nose/Throat external ear and nose Overall: normal appearance 05/29/2015 None Full Exam - ENT Ears/Nose/Throat nasal mucosa, septum, turbinates Overall: nasal mucosa clear 05/29/2015 None Full Exam - ENT Ears/Nose/Throat lips/teeth/gingiva Overall: benign lips 05/29/2015 None Full Exam [...] Neck inspection of neck Overall: normal size 05/29/2015 None Full Exam - ENT Neck [...] None Full Exam - ENT Neurologic cranial nerves/coordination Overall: cranial nerves 2-12 grossly intact 05/29/2015 None Full Exam - [...] ENT Ears/Nose/Throat otoscopic exam Left tympanic membrane: air-fluid level 12/05/2013 None Full Exam - ENT Ears/Nose/Throat otoscopic exam Right tympanic membrane: air-fluid level 12/05/2013 None Full Exam - ENT Ears/Nose/Throat external ear and nose Overall: normal appearance 12/05/2013 None Full Exam - ENT Ears/Nose/Throat nasal mucosa, septum, turbinates Overall: nasal mucosa clear 12/05/2013 None Full Exam - ENT Ears/Nose/Throat lips/teeth/gingiva Overall: benign lips 12/05/2013 None Full Exam [...] Neck inspection of neck Overall: normal size 12/05/2013 None Full Exam - ENT Neck [...] None Full Exam - ENT Neurologic cranial nerves/coordination Overall: cranial nerves 2-12 grossly intact 12/05/2013 None Full Exam - [...] tenderness 07/09/2013 None Full Exam - General 1995 Abdomen [...] sounds 03/22/2013 None Full Exam - General 1995 Musculoskeletal upper extremity Inspection - carpals: a [...] ENT Ears/Nose/Throat otoscopic exam Left tympanic membrane: air-fluid level 10/23/2012 None Full Exam - ENT Ears/Nose/Throat otoscopic exam Right tympanic membrane: air-fluid level 10/23/2012 None Full Exam - ENT Ears/Nose/Throat external ear and nose Overall: normal appearance 10/23/2012 None Full Exam - ENT Ears/Nose/Throat nasal mucosa, septum, turbinates Overall: nasal mucosa clear 10/23/2012 None Full Exam - ENT Ears/Nose/Throat lips/teeth/gingiva Overall: benign lips 10/23/2012 None Full Exam [...] Neck inspection of neck Overall: normal size 10/23/2012 None Full Exam - ENT Neck [...] None Full Exam - ENT Neurologic cranial nerves/coordination Overall: cranial nerves 2-12 grossly intact 10/23/2012 None Full Exam - [...] 06/27/2011 None Full Exam - ENT Ears/Nose/Throat lips/teeth/gingiva Overall: benign lips 06/27/2011 None Full Exam - ENT Eyes ocular motility Overall: extraocular movement intact 06/27/2011 None Full Exam - ENT Neck inspection of neck Overall: normal size 06/27/2011 None Full Exam - ENT Neck [...] None Full Exam - ENT Neurologic cranial nerves/coordination Overall: cranial nerves 2-12 grossly intact 06/27/2011 None Full Exam - [...] ENT Ears/Nose/Throat otoscopic exam Left tympanic membrane: air-fluid level 06/27/2011 None Full Exam - ENT Ears/Nose/Throat otoscopic exam Right tympanic membrane: air-fluid level 06/27/2011 None Procedures Procedure Codes Date ADMIN INFLUENZA VIRUS VAC CPT-4: G0008 06/28/2018 FLU VAC NO PRSV 4 KARI 3 YRS+ Formatting Model/CDA Sections, Assigned to/Juana Ji CPT-4: [id number] 06/28/2018 DRAIN/INJECT JOINT/BURSA CPT-4: 40276 01/29/2018 TRIAMCINOLONE ACET INJ NOS CPT-4: J3301 01/29/2018 PPPS, SUBSEQ VISIT CPT- 4: G0439 01/08/2018 THER/PROPH/DIAG INJ SC/IM CPT-4: 43525 08/21/2017 TRIAMCINOLONE ACET INJ NOS CPT-4: J3301 08/21/2017 ADMIN INFLUENZA VIRUS VAC CPT-4: G0008 07/18/2017 FLU VACC PRSV FREE INC ANTIG CPT-4: 97999 07/18/2017 TRIAMCINOLONE ACET INJ NOS CPT-4: J3301 06/30/2017 TRIAMCINOLONE ACET INJ NOS CPT-4: J3301 05/09/2017 THER/PROPH/DIAG INJ SC/IM CPT-4: 33393 05/09/2017 TRIAMCINOLONE ACET INJ NOS CPT-4: J3301 01/30/2017 PPPS, SUBSEQ VISIT CPT- 4: G0439 01/02/2017 ADMIN INFLUENZA VIRUS VAC CPT-4: G0008 07/13/2016 FLU VACC PRSV FREE INC ANTIG CPT-4: 07887 07/13/2016 ADMIN INFLUENZA VIRUS VAC CPT-4: G0008 07/10/2015 FLU VACC 4 KARI 3 YRS PLUS IM Formatting Model/CDA Sections, Assigned to/Juana Ji SNOMED CT: [id number] CPT-4: [id number] 07/10/2015 TRIAMCINOLONE ACET INJ NOS CPT-4: J3301 05/29/2015 ROCEPHIN, PER 250 MG CPT- 4: J0696 05/29/2015 THER/PROPH/DIAG INJ SC/IM CPT-4: 96578 10/15/2014 TRIAMCINOLONE ACET INJ NOS CPT-4: J3301 10/15/2014 ROCEPHIN, PER 250 MG CPT- 4: J0696 10/15/2014 THER/PROPH/DIAG INJ SC/IM CPT-4: 06555 02/17/2014 TRIAMCINOLONE ACET INJ NOS CPT-4: J3301 02/17/2014 ROCEPHIN, PER 250 MG CPT- 4: J0696 12/05/2013 ADMIN INFLUENZA VIRUS VAC CPT-4: G0008 07/09/2013 FLULAVAL VACC, 3 YRS & >, IM CPT-4: Q2036 07/09/2013 ROCEPHIN, PER 250 MG CPT- 4: J0696 10/23/2012 PRESCRIP TRANSMIT VIA ERX SY CPT-4: G8553 10/23/2012 ROUTINE VENIPUNCTURE CPT- 4: 61142 03/14/2012 ADMIN INFLUENZA VIRUS VAC CPT-4: G0008 07/05/2011 FLULAVAL VACC, 3 YRS & >, IM CPT-4: Q2036 07/05/2011 ROUTINE VENIPUNCTURE CPT- 4: 53011 06/28/2011 PRESCRIP TRANSMIT VIA ERX SY CPT-4: G8553 06/27/2011 Vital Signs Date Vital 01/24/2019 Blood Pressure 1: 138/74 Code: 8480-6 BMI: 32.9 Code: 79368-9 Heart Rate 1: 74 bpm Height: 5'2" SpO2: 97% Weight: 180 lbs 12/03/2018 Blood Pressure 1: 134/72 Code: 8480-6 BMI: 31.1 Code: 22938-7 Heart Rate 1: 89 bpm Height: 5'2" SpO2: 99% Weight: 170 lbs 11/19/2018 Blood Pressure 1: 134/56 Code: 8480-6 BMI: 31.1 Code: 27304-9 Heart Rate 1: 88 bpm Height: 5'2" SpO2: 98% Weight: 170 lbs 11/07/2018 Blood Pressure 1: 140/70 Code: 8480-6 BMI: 31.1 Code: 92855-3 Heart Rate 1: 91 bpm Height: 5'2" SpO2: 99% Weight: 170 lbs 09/04/2018 Blood Pressure 1: 140/80 Code: 8480-6 BMI: 31.3 Code: 24629-8 Heart Rate 1: 82 bpm Height: 5'2" SpO2: 95% Weight: 171 lbs 07/10/2018 Blood Pressure 1: 144/46 Code: 8480-6 BMI: 31.5 Code: 85921-9 Heart Rate 1: 86 bpm Height: 5'2" SpO2: 97% Weight: 172 lbs 06/19/2018 Blood Pressure 1: 150/80 Code: 8480-6 BMI: 31.5 Code: 56674-3 Heart Rate 1: 94 bpm Height: 5'2" SpO2: 96% Weight: 172 lbs 6 oz 01/29/2018 Blood Pressure 1: 148/66 Code: 8480-6 BMI: 31.8 Code: 21558-9 Heart Rate 1: 80 bpm Height: 5'2" SpO2: 96% Weight: 174 lbs 01/08/2018 Blood Pressure 1: 122/72 Code: 8480-6 BMI: 32.0 Code: 66496-0 Heart Rate 1: 79 bpm Height: 5'2" SpO2: 99% Weight: 175 lbs 08/21/2017 Blood Pressure 1: 162/78 Code: 8480-6 BMI: 32.2 Code: 97915-3 Heart Rate 1: 82 bpm Height: 5'2" SpO2: 97% Temperature: 36.6 (C) / 97.8 (F) Weight: 176 lbs 07/18/2017 Blood Pressure 1: 136/70 Code: 8480-6 BMI: 31.9 Code: 42455-1 Heart Rate 1: 81 bpm Height: 5'2" SpO2: 96% Weight: 174 lbs 8 oz 06/30/2017 Blood Pressure 1: 128/74 Code: 8480-6 BMI: 31.8 Code: 89793-9 Heart Rate 1: 89 bpm Height: 5'2" SpO2: 97% Weight: 174 lbs 05/08/2017 Blood Pressure 1: 148/82 Code: 8480-6 BMI: 30.9 Code: 82673-9 Heart Rate 1: 79 bpm Height: 5'2" SpO2: 95% Weight: 169 lbs 02/14/2017 Blood Pressure 1: 126/72 Code: 8480-6 Heart Rate 1: 76 bpm Height: 5'2" SpO2: 97% Weight: 01/31/2017 Blood Pressure 1: 154/80 Code: 8480-6 BMI: 32.0 Code: 24189-9 Heart Rate 1: 81 bpm Height: 5'2" SpO2: 97% Weight: 175 lbs 01/30/2017 Blood Pressure 1: 136/78 Code: 8480-6 Heart Rate 1: 92 bpm Height: 5'2" SpO2: 96% Temperature: 37.4 (C) / 99.3 (F) Weight: 01/02/2017 Blood Pressure 1: 146/66 Code: 8480-6 BMI: 31.8 Code: 34573-5 Heart Rate 1: 81 bpm Height: 5'2" SpO2: 98% Weight: 174 lbs 12/29/2016 Blood Pressure 1: 140/78 Code: 8480-6 BMI: 31.8 Code: 95736-2 Heart Rate 1: 88 bpm Height: 5'2" SpO2: 97% Weight: 174 lbs 03/24/2016 Blood Pressure 1: 132/88 Code: 8480-6 BMI: 31.6 Code: 04339-2 Heart Rate 1: 91 bpm Height: 5'2" SpO2: 99% Weight: 173 lbs 09/25/2015 Blood Pressure 1: 112/60 Code: 8480-6 BMI: 31.3 Code: 66398-8 Heart Rate 1: 85 bpm Height: 5'2" SpO2: 97% Weight: 171 lbs 08/24/2015 Blood Pressure 1: 142/60 Code: 8480-6 BMI: 30.9 Code: 38828-7 Heart Rate 1: 94 bpm Height: 5'2" SpO2: 97% Weight: 169 lbs 06/12/2015 Blood Pressure 1: 122/64 Code: 8480-6 BMI: 31.1 Code: 28067-6 Heart Rate 1: 91 bpm Height: 5'2" SpO2: 97% Weight: 170 lbs 05/29/2015 Blood Pressure 1: 150/78 Code: 8480-6 BMI: 31.6 Code: 61133-6 Heart Rate 1: 79 bpm Height: 5'2" SpO2: 93% Weight: 173 lbs 03/26/2015 Blood Pressure 1: 124/82 Code: 8480-6 BMI: 31.8 Code: 10507-8 Heart Rate 1: 80 bpm Height: 5'2" Respiratory Rate: 20 bpm Weight: 174 lbs 03/17/2015 Blood Pressure 1: 128/78 Code: 8480-6 BMI: 31.8 Code: 64151-3 Heart Rate 1: 84 bpm Height: 5'2" Respiratory Rate: 20 bpm Weight: 174 lbs 10/15/2014 Blood Pressure 1: 130/64 Code: 8480-6 BMI: 32.6 Code: 20280-7 Heart Rate 1: 80 bpm Height: 5'2" Weight: 178 lbs 04/10/2014 Blood Pressure 1: 128/70 Code: 8480-6 BMI: 31.6 Code: 71481-4 Heart Rate 1: 80 bpm Height: 5'2" Weight: 173 lbs 02/17/2014 Blood Pressure 1: 108/58 Code: 8480-6 BMI: 32.0 Code: 40334-4 Heart Rate 1: 80 bpm Height: 5'2" Temperature: 37.4 (C) / 99.3 (F) Weight: 175 lbs 12/05/2013 Blood Pressure 1: 144/80 Code: 8480-6 Heart Rate 1: 72 bpm SpO2: 98% Temperature: 36.9 (C) / 98.4 (F) Weight: 177 lbs 09/25/2013 Blood Pressure 1: 136/82 Code: 8480-6 BMI: 32.7 Code: 77823-1 Heart Rate 1: 84 bpm Height: 5'2" Weight: 179 lbs 07/09/2013 Blood Pressure 1: 144/70 Code: 8480-6 BMI: 32.0 Code: 12751-1 Heart Rate 1: 76 bpm Height: 5'2" Weight: 175 lbs 2013 Blood Pressure 1: 128/72 Code: 8480-6 BMI: 31.8 Code: 07073-7 Heart Rate 1: 68 bpm Height: 5'2" Weight: 174 lbs 03/22/2013 Blood Pressure 1: 128/68 Code: 8480-6 BMI: 31.8 Code: 80973-7 Heart Rate 1: 68 bpm Height: 5'2" Weight: 174 lbs 02/28/2013 Blood Pressure 1: 128/72 Code: 8480-6 BMI: 31.5 Code: 73730-1 Heart Rate 1: 80 bpm Height: 5'2" Weight: 172 lbs 10/23/2012 Blood Pressure 1: 124/78 Code: 8480-6 Heart Rate 1: 68 bpm Temperature: 36.8 (C) / 98.2 (F) Weight: 172 lbs 03/08/2012 Blood Pressure 1: 124/68 Code: 8480-6 Heart Rate 1: 80 bpm Weight: 171 lbs 09/28/2011 Blood Pressure 1: 112/58 Code: 8480-6 BMI: 31.6 Code: 49550-6 Heart Rate 1: 76 bpm Height: 5'2" Respiratory Rate: 16 bpm Weight: 173 lbs 06/27/2011 Blood Pressure 1: 117/61 Code: 8480-6 BMI: 30.4 Code: 32926-5 Heart Rate 1: 86 bpm Height: 5'3" Weight: 171 lbs 8 oz Functional Status No Functional Status data History of Present Illness Symptom Name Status Result Effective Date Notes Quality chronic 01/24/2019 None Quality primary hypertension 01/24/2019 None Onset and Resolution ongoing 01/24/2019 None Onset of Symptom during adulthood 01/24/2019 None Blood Pressure Values not checking blood pressure at home 01/24/2019 None Alleviating Factors medication 01/24/2019 None Pertinent Findings dizziness 01/24/2019 a little bit Pertinent Findings dyspnea 01/24/2019 "I always am" Pertinent Findings edema 01/24/2019 None Location right ear 01/24/2019 None Quality acute 01/24/2019 None Onset of Symptom weeks ago 01/24/2019 None Triggers no known triggers 01/24/2019 None Onset and Resolution resolved 01/24/2019 None Location on the right 12/03/2018 None Quality aching 12/03/2018 None Quality burning 12/03/2018 None Quality constant 12/03/2018 None Quality sharp pain 12/03/2018 None Onset and Resolution sudden in onset 12/03/2018 None Onset of Symptom 8 days ago 12/03/2018 None Frequency of Episodes daily 12/03/2018 None Quality chronic 11/19/2018 None Quality primary hypertension 11/19/2018 None Onset and Resolution ongoing 11/19/2018 None Onset of Symptom during adulthood 11/19/2018 None Blood Pressure Values not checking blood pressure at home 11/19/2018 None Alleviating Factors medication 11/19/2018 None Pertinent Findings dizziness 11/19/2018 a little bit Pertinent Findings dyspnea 11/19/2018 "I always am" Pertinent Findings edema 11/19/2018 None Location right ear 11/19/2018 None Quality acute 11/19/2018 None Onset and Resolution ongoing 11/19/2018 None Onset of Symptom weeks ago 11/19/2018 None Triggers no known triggers 11/19/2018 None Onset and Resolution ongoing 11/07/2018 None Pertinent Findings dizziness 11/07/2018 a little bit Pertinent Findings dyspnea 11/07/2018 "I always am" Location right ear 11/07/2018 None Quality acute 11/07/2018 None Onset and Resolution ongoing 11/07/2018 None Onset of Symptom weeks ago 11/07/2018 None Triggers no known triggers 11/07/2018 None Quality primary hypertension 11/07/2018 None Quality chronic 11/07/2018 None Onset of Symptom during adulthood 11/07/2018 [...] area 06/19/2018 right buttock rash Color red 06/19/2018 None rash Onset and Resolution ongoing 06/19/2018 [...] with someone who has been drinking: no 01/08/2018 None Annual Medicare Wellness Exam Aspirin Use yes 01/08/2018 None Annual Medicare Wellness Exam Blood Glucose (self reported) don't know 01/08/2018 None Annual Medicare Wellness Exam Hemaglobin A-1C (self reported) never checked 01/08/2018 None Annual Medicare Wellness Exam Blood Pressure (self reported) don't know 01/08/2018 None Annual Medicare Wellness Exam Exercise Habits exercises 3 days per week 01/08/2018 works at [employer] Annual Medicare Wellness Exam Handling Stress often [...] / high fat foods per day: 2 01/08/2018 None Annual Medicare Wellness Exam Nutrition servings of high fiber / whole grain per day: 0-1 01/08/2018 None Annual Medicare Wellness Exam Cholesterol (self reported) diagnosed with elevated cholesterol 01/08/2018 None Annual Medicare Wellness Exam Nutrition [...] Episodes daily 08/21/2017 None cough Quality acute 07/18/2017 None cough Quality improving 07/18/2017 None cough [...] the flank 05/08/2017 None cough Quality acute 02/14/2017 None cough Quality intermittent 02/14/2017 None cough [...] the throat 01/31/2017 None cough Quality acute 01/31/2017 None cough Onset and Resolution sudden in [...] the larynx 01/30/2017 None cough Quality acute 01/30/2017 None cough Onset and Resolution sudden in onset 01/30/2017 None cough Quality dry 01/30/2017 None cough Onset of Symptom 3 days [...] Annual Medicare Wellness Exam Blood Pressure (self reported) low / normal (120/80) 01/02/2017 None Annual [...] Annual Medicare Wellness Exam Hemaglobin A-1C (self reported) don't know 01/02/2017 None Annual Medicare Wellness [...] with someone who has been drinking: n 01/02/2017 None Annual Medicare Wellness Exam Nutrition servings of fried food / high fat foods per day: 2 01/02/2017 None Annual Medicare Wellness Exam Nutrition [...] the throat 08/24/2015 None cough Quality dry 08/24/2015 None cough Onset and Resolution sudden in [...] Quality constant 05/29/2015 None rash Color red 05/29/2015 None rash Frequency of Episodes daily 05/29/2015 [...] 03/08/2012 Works 3 days per week at [employer], is retired osteoarthritis Frequency of Episodes unchanged [...] data Encounters Encounter Performer Location Codes Date ([id number]) 01947 EST. PATIENT, LEVEL IV Diagnosis: Essential (primary) hypertension[ICD10: I10] Diagnosis: Mild intermittent asthma, uncomplicated[ICD10: J45.20] Deneen Rosenberg MD, [facility] CPT-4: 77512 01/24/2019 88781 EST. PATIENT, LEVEL III Diagnosis: Encounter for follow-up examination after completed treatment for conditions other than malignant neoplasm[ICD10: Z09] Diagnosis: Low back pain[ICD10: M54.5] Chastity Rosenberg MD, [facility] CPT-4: 16844 12/03/2018 [id number]) 20934 EST. PATIENT, LEVEL III Diagnosis: Postherpetic trigeminal neuralgia[ICD10: B02.22] Deneen Rosenberg MD [facility] CPT-4: 29084 11/19/2018 [id number]) 94930 EST. PATIENT, LEVEL III Diagnosis: Chronic obstructive pulmonary disease with (acute) exacerbation[ICD10: J44.1] Diagnosis: Postherpetic trigeminal neuralgia[ICD10: B02.22] Deneen Rosenberg MD, [facility] CPT-4: 58695 11/07/2018 ([id number]) 31833 EST. PATIENT, LEVEL IV Diagnosis: Essential (primary) hypertension[ICD10: I10] Diagnosis: Chronic frontal sinusitis[ICD10: J32.1] Deneen Rosenberg MD [facility] CPT-4: 65636 09/04/2018 [id number]) 90093 EST. PATIENT, LEVEL III Diagnosis: Other retention of urine[ICD10: R33.8] Diagnosis: Mild intermittent asthma with (acute) exacerbation[ICD10: J45.21] Deneen Rosenberg MD, [facility] CPT-4: 75285 07/10/2018 ([id number]) 01660 EST. PATIENT, LEVEL IV Diagnosis: Primary hyperparathyroidism[ICD10: E21.0] Diagnosis: Personal history of other diseases of the musculoskeletal system and connective tissue[ICD10: Z87.39] Deneen Rosenberg MD, [facility] CPT-4: 77616 06/19/2018 52477 EST. PATIENT, LEVEL III Diagnosis: Low back pain[ICD10: M54.5] Diagnosis: Sciatica, right side[ICD10: M54.31] Chastity Rosenberg MD, [facility] CPT- 4: 88642 01/29/2018 45383 EST. PATIENT, LEVEL III Diagnosis: Mild intermittent asthma with (acute) exacerbation[ICD10: J45.21] Diagnosis: Cough[ICD10: R05] Diagnosis: Other allergic rhinitis[ICD10: J30.89] Chastity Rosenberg MD, [facility] CPT- 4: 59161 08/21/2017 ([id number]) 11986 EST. PATIENT, LEVEL IV Diagnosis: Mild intermittent asthma with (acute) exacerbation[ICD10: J45.21] Diagnosis: Essential (primary) hypertension[ICD10: I10] Diagnosis: Encounter for immunization[ICD10: Z23] Diagnosis: Sciatica, right side[ICD10: M54.31] Diagnosis: Low back pain[ICD10: M54.5] Deneen Rosenberg MD, [facility] CPT-4: 47322 07/18/2017 ([id number]) 93620 EST. PATIENT, LEVEL III Diagnosis: Cough[ICD10: R05] Diagnosis: Other allergic rhinitis[ICD10: J30.89] Lalitha Rosenberg MD, [facility] CPT-4: 46362 06/30/2017 60838 EST. PATIENT, LEVEL III Diagnosis: Low back pain[ICD10: M54.5] Diagnosis: Dizziness and giddiness[ICD10: R42] Chastity Rosenberg MD, [facility] CPT- 4: 81951 05/08/2017 ([id number]) 18225 EST. PATIENT, LEVEL III Diagnosis: Essential (primary) hypertension[ICD10: I10] Diagnosis: Low back pain[ICD10: M54.5] Diagnosis: Sciatica, right side[ICD10: M54.31] Deneen Rosenberg MD, [facility] CPT- 4: 92112 02/14/2017 ([id number]) 12893 EST. PATIENT, LEVEL III Diagnosis: Essential (primary) hypertension[ICD10: I10] Deneen Rosenberg MD, [facility] CPT-4: 72541 01/31/2017 ([id number]) 17246 EST. PATIENT, LEVEL III Diagnosis: Cough[ICD10: R05] Diagnosis: Acute recurrent maxillary sinusitis[ICD10: J01.01] Lalitha Rosenberg MD, [facility] CPT-4: 99394 01/30/2017 ([id number]) 52916 EST. PATIENT, LEVEL III Diagnosis: Essential (primary) hypertension[ICD10: I10] Diagnosis: Mild intermittent asthma with (acute) exacerbation[ICD10: J45.21] Diagnosis: Tinea corporis[ICD10: B35.4] Deneen Rosenberg MD, [facility] CPT-4: 69481 12/29/2016 ([id number]) Miscellaneous no charge Diagnosis: Epistaxis[ICD10: R04.0] Chastity Rosenberg MD, [facility] CPT-4: 41101 04/01/2016 ([id number]) 35154 EST. PATIENT, LEVEL IV Diagnosis: Essential (primary) hypertension[ICD10: I10] Diagnosis: Mild intermittent asthma, uncomplicated[ICD10: J45.20] Diagnosis: Insomnia, unspecified[ICD10: G47.00] Lalitha Rosenberg MD, [facility] CPT-4: 79527 03/24/2016 70044 EST. PATIENT, LEVEL III Diagnosis: Mild intermittent asthma with (acute) exacerbation[ICD10: J45.21] Diagnosis: Epistaxis[ICD10: R04.0] Chastity Rosenberg MD, [facility] CPT-4: 34365 09/25/2015 ([id number]) 61355 EST. PATIENT, LEVEL III Diagnosis: Acute recurrent maxillary sinusitis[ICD10: J01.01] Diagnosis: Allergic rhinitis due to pollen[ICD10: J30.1] Lalitha Rosenberg MD, [facility] CPT-4: 60543 08/24/2015 ([id number]) 90691 EST. PATIENT, LEVEL IV Diagnosis: Well woman exam[ICD9: V70.0] Diagnosis: Encounter for screening for malignant neoplasm of vagina[ICD10: Z12.72] Diagnosis: Pelvic and perineal pain[ICD10: R10.2] Lalitha Rosenberg MD, [facility] CPT-4: 42090 06/12/2015 ([id number]) 76665 EST. PATIENT, LEVEL III Diagnosis: Tinea corporis[ICD9: 110.5] Diagnosis: ACUTE MAXILLARY SINUSITIS[ICD9: 461.0] Lalitha Rosenberg MD, [facility] CPT-4: 52838 05/29/2015 ([id number]) 71547 EST. PATIENT, LEVEL IV Diagnosis: Skin tag[ICD9: 701.9] Diagnosis: Seborrheic keratoses[ICD9: 702.19] Diagnosis: Comedone[ICD9: 706.1] Diagnosis: IMPACTED CERUMEN[ICD9: 380.4] Rosemaire Rosenberg MD, [facility] CPT-4: 02787 03/26/2015 ([id number]) 10360 EST. PATIENT, LEVEL IV Diagnosis: ESSENTIAL HYPERTENSION[ICD9: 401.9] Diagnosis: HYPERLIPIDEMIA[ICD9: 272.4] Diagnosis: Fatigue[ICD9: 780.79] Diagnosis: INSECT BITE HIP/LEG[ICD9: 916.4] Rosemarie Rosenberg MD, [facility] CPT-4: 88844 03/17/2015 ([id number]) 83919 EST. PATIENT, LEVEL IV Diagnosis: Acute bronchitis[ICD9: 466.0] Diagnosis: MALAISE AND FATIGUE[ICD9: 780.79] Diagnosis: COUGH[ICD9: 786.2] Diagnosis: CHRONIC OBSTRUCTIVE ASTHMA WITH EXACERBATION[ICD9: 493.22] Deneen Rosenberg MD, [facility] CPT-4: 59535 10/15/2014 ([id number]) 77354 EST. PATIENT, LEVEL III Diagnosis: Acute anterior epistaxis[ICD9: 784.7] Diagnosis: ESSENTIAL HYPERTENSION[ICD9: 401.9] Lalitha Rosenberg MD, [facility] CPT-4: 46193 04/10/2014 ([id number]) 02763 EST. PATIENT, LEVEL III Diagnosis: Acute bronchitis[ICD9: 466.0] Diagnosis: COUGH[ICD9: 786.2] Diagnosis: Nasal congestion[ICD9: 478.19] Deneen Rosenberg MD, [facility] CPT-4: 59089 02/17/2014 ([id number]) 54374 EST. PATIENT, LEVEL III Diagnosis: ACUTE SINUSITIS[ICD9: 461.9] Lalitha Rosenberg MD, [facility] CPT-4: 65679 12/05/2013 ([id number]) 99189 EST. PATIENT, LEVEL IV Diagnosis: HYPERLIPIDEMIA[ICD9: 272.4] Diagnosis: CHRONIC OBSTRUCTIVE ASTHMA[ICD9: 493.20] Diagnosis: SLEEP APNEA NOS[ICD9: 780.57] Diagnosis: GENERAL OSTEOARTHROSIS-MULT[ICD9: 715.09] Deneen Rosenberg MD [facility] CPT-4: 96047 09/25/2013 ([id number]) 16842 EST. PATIENT, LEVEL III Diagnosis: CHRONIC OBSTRUCTIVE ASTHMA[ICD9: 493.20] Deneen Rosenberg MD, [facility] CPT-4: 31323 07/09/2013 ([id number]) Miscellaneous no charge Diagnosis: CHRONIC OBSTRUCTIVE ASTHMA[ICD9: 493.20] Deneen Rosenberg MD [facility] CPT-4: 77290 06/11/2013 ([id number]) 06679 EST. PATIENT, LEVEL IV Diagnosis: CHRONIC OBSTRUCTIVE ASTHMA[ICD9: 493.20] Diagnosis: Sleep apnea[ICD9: 780.57] Deneen Rosenberg MD [facility] CPT-4: 66732 2013 ([id number]) 68833 EST. PATIENT, LEVEL IV Diagnosis: CHRONIC OBSTRUCTIVE ASTHMA[ICD9: 493.20] Diagnosis: OSTEOARTH NOS-UNSPEC[ICD9: 715.90] Diagnosis: MALAISE AND FATIGUE[ICD9: 780.79] Deneen Rosenberg MD, [facility] CPT- 4: 23554 03/22/2013 ([id number]) 90830 EST. PATIENT, LEVEL IV Diagnosis: HYPERLIPIDEMIA[ICD9: 272.4] Diagnosis: OSTEOARTH NOS-UNSPEC[ICD9: 715.90] Diagnosis: MALAISE AND FATIGUE[ICD9: 780.79] Deneen Rosenberg MD, [facility] CPT- 4: 90925 02/28/2013 ([id number]) 65470 EST. PATIENT, LEVEL III Diagnosis: ACUTE SINUSITIS[ICD9: 461.9] Diagnosis: COUGH[ICD9: 786.2] Lalitha Rosenberg MD, [facility] CPT-4: 03213 10/23/2012 ([id number]) 49934 EST. PATIENT, LEVEL IV Diagnosis: ESSENTIAL HYPERTENSION[SNOMED: [id number]] Diagnosis: HYPERLIPIDEMIA[ICD9: 272.4] Diagnosis: CHRONIC OBSTRUCTIVE ASTHMA[ICD9: 493.20] [facility] CPT-4: 52759 03/08/2012 ([id number]) 36980 EST. PATIENT, LEVEL IV Diagnosis: CHRONIC OBSTRUCTIVE ASTHMA[ICD9: 493.20] Diagnosis: Primary generalized (osteo)arthritis[ICD9: 715.09] Diagnosis: PAIN IN LIMB[ICD9: 729.5] Deneen Rosenberg MD, [facility] CPT-4: 33657 09/28/2011 51671 EST. PATIENT, LEVEL IV Diagnosis: ACUTE SINUSITIS[ICD9: 461.9] Diagnosis: Asthma[ICD9: 493.90] Diagnosis: Osteoarthritis[ICD9: 715.90] Diagnosis: Hyperlipidemia[ICD9: 272.4] Lalitha Rosenberg MD, [facility] CPT-4: 26021 06/27/2011 Plan of Care Planned Activity Notes Codes Status Date Visit Plan: Hypertension - well controlled - continue with current medications, continue with no added salt diet. Pt has been encouraged to exercise daily. The pt has been advised to call the office if there are any acute concerns about change in blood pressure readings at home. COPD/Asthma - rx for albuterol and proair. 01/24/2019 Appointment: Deneen Rosenberg [facility]Ptel: [facility] (15 min) Moderate 01/24/2019 Patient Education: Patient Medication Summary Completed 01/24/2019 Patient Education: Hypertension Completed 01/24/2019 Visit Plan: Low back pain- the patient was instructed in appropriate posture, need for weight loss to alleviate abdominal obesity that is worsening the patient's back pain.. The pt is to use prn antiinflammatories to manage acute pain. The patient is to call the office if the pain is worsening or does not improve. Stop baclofen, use lidocaine patches as needed - notify clinic if symptoms do not improve, if they worsen, or with any changes, questions or concerns. 12/03/2018 Appointment: [phone] (30 min) Complex 12/03/2018 Patient Education: Patient Medication Summary Completed 12/03/2018 Patient Education: Back Pain Completed 12/03/2018 Visit Plan: Post-herpetic neuralgia - pt to stop acyclovir - finish dose of steroid - monitor symptoms, call if symptoms return. 11/19/2018 Appointment: Deneen Rosenberg WPtel: [phone] [facility] (15 min) Moderate 11/19/2018 Patient Education: Patient Medication Summary Completed 11/19/2018 Visit Plan: Trigeminal Neuralgia - due to shingles - rx for prednisone taper and valcyvlovir 1 gram bid. COPD - rx for albuterol and proair. 11/07/2018 Appointment: Deneen Rosenberg WPtel: [phone] [facility] (15 min) Moderate 11/07/2018 Patient Education: Patient [...] 10 days. 09/04/2018 Appointment: Deneen Rosenberg WPtel: [facility] (15 min) Moderate 09/04/2018 Patient Education: Patient Medication Summary Completed 09/04/2018 Patient Education: Hypertension Completed 09/04/2018 Visit Plan: Asthma - chronic problem for this patient. We have reviewed chronic treatment strategy, symptom control, and plans for acute exacerbations. No changes today to the current treatment plan as the patient is stable, monitor for acute changes 07/10/2018 Appointment: [facility] Rosen[facility]el[phone] [facility] (15 min) Moderate 07/10/2018 Patient Education: Patient Medication Summary Completed 07/10/2018 Appointment: Injection 06/28/2018 Patient Education: Patient Medication Summary Completed 06/28/2018 Visit Plan: Elevated PTH - parathyroid nuclear medicine uptake at [facility] in [place] - 06/26, , are open Osteopenia - discussed the pt's dx and the fact that insurance will not pay for prolia due to lack of dx of Osteoporosis. 06/19/2018 Appointment: Deneen Rosenberg WPtel: [facility] (15 min) Moderate 06/19/2018 Patient Education: Patient [...] of injection. 01/29/2018 Appointment: Chastity Chavira [facility] (30 min) Complex 01/29/2018 Patient Education: [...] care surrogate. 01/08/2018 Appointment: Lalitha Alcala WPtel: [phone] [facility] - Annual Wellness Visit 01/08/2018 Patient [...] acute changes 07/18/2017 Appointment: Deneen Rosenberg WPtel: [address] [place] [id number] (15 min) Moderate 07/18/2017 Patient Education: Patient [...] symptoms persist 06/30/2017 Appointment: Lalitha Alcala WPtel: [phone] [phone] (15 min) Moderate 06/30/2017 Patient Education: Patient [...] or concerns. 05/08/2017 Appointment: Chastity Chavira WPtel: [facility] (30 min) Complex 05/08/2017 Patient Education: Patient [...] they worsen. 02/14/2017 Appointment: Deneen Rosenberg WPtel: [phone] [facility] (15 min) Moderate 02/14/2017 Patient Education: Patient Medication Summary Completed 02/14/2017 Care Plan: Referral Order SNOMED-CT : [id number] Pending 02/14/2017 Appointment: Deneen Rosenberg WPtel: [phone] [facility] (15 min) Moderate 02/01/2017 Visit Plan: Hypertension - well controlled - continue with current medications, continue with no added salt diet. Pt has been encouraged to exercise daily. The pt has been advised to call the office if there are any acute concerns about change in blood pressure readings at home. Cough - improved from yesterday. 01/31/2017 Appointment: Glennie Deneen [facility]Ptel: [phone] [facility] (15 min) Moderate 01/31/2017 Patient Education: Patient Medication Summary Completed 01/31/2017 Patient Education: Obesity Completed 01/31/2017 Patient Education: Hypertension Completed 01/31/2017 Visit Plan: Sinusitis - Pt has acute infection - pain in face, maxillary region, Pt informed to use decongestant, RX given to patient, sinus rinses also recommended. Call if symptoms do not show improvement. 01/30/2017 Appointment: Lal[facility] Alcala [phone] [place] (15 min) Moderate 01/30/2017 Patient [...] shampoo. 12/29/2016 Appointment: Deneen Rosenberg WPtel: [phone] [facility] (15 min) Moderate 12/29/2016 Patient Education: Patient Medication Summary Completed 12/29/2016 Patient Education: Obesity Completed 12/29/2016 Patient Education: Hypertension Completed 12/29/2016 Patient Education: Patient Medication Summary Completed 12/26/2016 Appointment: Injection 07/13/2016 Patient Education: Patient Medication Summary Completed 07/13/2016 Visit Plan: Pt went to ED from office, stating she does not think she will be able to get to her ENT in [place]. 04/01/2016 Appointment: Lalitha Alcala WPtel: [phone] [phone] (30 min) Complex 04/01/2016 Patient Education: Patient [...] traveling 03/24/2016 Appointment: Lalitha Alcala WPtel: [phone] [phone] (30 min) Complex 03/24/2016 Patient Education: Patient [...] Care Plan: COMPLETE CBC AUTOMATED LOINC : 60326-9 Ordered 03/17/2015 Visit Plan: Asthma EXACERBATION - [...] acutely worsen. 10/15/2014 Appointment: Deneen Rosenberg WPtel: [phone] 10/15/2014 Patient Education: Patient Medication Summary Completed [...] improvement. 12/05/2013 Appointment: Lalitha Alcala WPtel: [phone] [phone] [facility] 12/05/2013 Patient Education: Patient Medication Summary Completed 12/05/2013 Appointment: Deneen Rosenberg WPtel: [address] [place], [place] [phone] Follow up 10/01/2013 Visit Plan: Hyperlipidemia - [...] consider cpap. 09/25/2013 Appointment: Deneen Rosenberg WPtel: [address] [place], [place] [phone] Follow up 09/25/2013 Patient Education: Patient Medication Summary Completed 09/25/2013 Visit Plan: Asthma - chronic problem for this patient. We have reviewed chronic treatment strategy, symptom control, and plans for acute exacerbations. No changes today to the current treatment plan as the patient is stable, monitor for acute changes 07/09/2013 Appointment: Deneen Rosenberg WPtel: [address] [place] [address] Follow up 07/09/2013 Patient Education: Patient Medication Summary Completed 07/09/2013 Appointment: Deneen Rosenberg WPtel: [address] [place], [place] [id number] [place] Follow up 07/01/2013 Appointment: Lalitha Alcala WPtel: [address] [place], [place] [id number] Lab Draw 06/11/2013 Patient Education: Patient Medication [...] noctural hypoxemia. 2013 Appointment: Deneen Rosenberg WPtel: [facility] Other 2013 Patient Education: Patient Medication [...] TUNNEL ENTRAPMENT. 03/22/2013 Appointment: Deneen Rosenberg WPtel: [facility] Other 03/22/2013 Patient Education: Patient Medication Summary [...] OA - chronic - pt to start o n glucosamine, monitor symptoms and take tylenol prn for pain. Malais and fatigue - check labs. 02/28/2013 Appointment: Deneen Rosenberg WPtel: [phone] [facility] Follow up 02/28/2013 Patient Education: Patient Medication Summary Completed 02/28/2013 Visit Plan: Sinusitis - Pt has acute infection - pain in face, maxillary region, Pt informed to use decongestant, RX given to patient, sinus rinses also recommended. Call if symptoms do not show improvement. Rocephin injection today in the office 10/23/2012 Appointment: Lalitha Alcala WPtel: [phone] [phone] Sick 10/23/2012 Patient Education: Patient Medication Summary Completed 10/23/2012 Appointment: Deneen Rosenberg WPtel: [phone] [facility] Lab Draw 03/14/2012 Patient Education: Patient Medication Summary Completed 03/14/2012 Patient Education: High Blood Pressure: Essential Hypertension Completed 03/14/2012 Visit Plan: Arthritis - plan to refer pt to Dr. Lion for eval and treatment. Chronic Asthma - chronic problem for this patient. We have reviewed chronic treatment strategy, symptom control, and plans for acute exa cerbations. No changes today to the current treatment [...] medications. 03/08/2012 Appointment: Deneen Rosenberg WPtel: [phone] [facility] Other 03/08/2012 Patient Education: Patient Medication Summary Completed 03/08/2012 Patient Education: High Blood Pressure: Essential Hypertension Completed 03/08/2012 Visit Plan: Asthma- controlled by the current medication.. No change in the treatment at this time. Osteoarthritis- pt has been instructed to use celebrex twice daily on the days that she is working. 09/28/2011 Appointment: [phone] Follow up 09/28/2011 Patient Education: Patient Medication Summary Completed 09/28/2011 Appointment: [facility]ene[facility] Rosenberg [facility]el[phone] [place] Injection 07/05/2011 Patient Education: Patient Medication Summary Completed 07/05/2011 Appointment: GlennieDeneen archer WPtel[phone] [place] Lab Draw 06/28/2011 Patient Education: Patient Medication [...] and checks labs as indicated. 06/27/2011 Appointment: Alcala Lalitha WPtel: [phone] [phone] Other 06/27/2011 Patient Education: Patient Medication Summary Completed 06/27/2011 Care Plan: CBC (COMPLETE CBC W/AUTO DIFF WBC) LOINC : 24117-6 Ordered 06/27/2011 Care Plan: CHEM 14 (COMPREHEN METABOLIC PANEL) LOINC : 54746-3 Ordered 06/27/2011 Care Plan: LIPID GRP (LIPID PANEL) LOINC : 00088-5 Ordered 06/27/2011 Care Plan: TSH (ASSAY THYROID STIM HORMONE) Ordered 06/27/2011 Referral: External, Ordering Provider Referral Completed Referral: External, Ordering Provider They will call the patient with appt information. Completed Instructions Comment . Low back pain- the patient was instructed in appropriate posture, need for weight loss to alleviate abdominal obesity that is worsening the patient's back pain.. The pt is to use prn antiinflammatories to manage acute pain. The patient is to call the office if the pain is worsening or does not improve. Stop baclofen, use lidocaine patches as needed - notify clinic if symptoms do not improve, if they worsen, or with any changes, questions or concerns. . Sinusitis - Pt has acute infection - pain in face, maxillary region, Pt informed to use decongestant, RX given to patient, sinus rinses also recommended. Call if symptoms do not show improvement. . Asthma- controlled by the current medication.. No change in the treatment at this time. Osteoarthritis- pt has been instructed to use celebrex twice daily on the days that she is working. . Well Adult Female - exam completed. [...] is stable, monitor for acute changes. . Low back pain- the patient was [...] occurs at the site of injection. . Low back pain- the patient was [...] or with any other questions or concerns. kenalog injection sputum culture if cough persists [...] spray. Cough-sputum culture if symptoms persist . Medicare Exam - today we discussed [...] D[employer] paperwork for health care surrogate. . Post-herpetic neuralgia - pt to stop acyclovir - finish dose of steroid - monitor symptoms, call if symptoms return. DX sinusitis - discussed expected course with [...] not improve or if they worsen. . Hypertension - well controlled - [...] temazepam to use as needed when traveling PT AGREED TO SLEEP STUDY AND PFT'S, [...] PAIN - SUSPECT CARPAL TUNNEL ENTRAPMENT. . Asthma EXACERBATION - ASTHMA is a [...] not improved, or if symptoms acutely worsen. HOLD ASPIRIN X 2 DAYS BACTROBAN OINMENT TO RIGHT NARE TWICE DAILY X 5 DAYS CALL IF NOSEBLEEDS PERSIST . Nasal lesion-recent nosebleeds-recommend bactroban to irritated nare, avoid blowing her nose, and hold aspirin for the next 2 days. Call if bleeding returns. HTN-well controlled-no changes . Asthma - chronic problem for [...] patient is stable, monitor for acute changes Start Align or Culturelle Probiotic Daily, Sample [...] medications. Patient provided with mammogram order. . Hypertension - well controlled - continue [...] PTH - parathyroid nuclear medicine uptake at [facility] in [place] - 06/26, 12 , 13 are open [...] if symptoms do not show improvement. . Sinusitis - Pt has acute infection [...] home. Cough - improved from yesterday. . Trigeminal Neuralgia - due to shingles [...] current treatment. Rash - Ketoconazole shampoo. . Hypertension - well controlled - continue with current medications, continue with no added salt diet. Pt has been encouraged to exercise daily. The pt has been advised to call the office if there are any acute concerns about change in blood pressure readings at home. COPD/Asthma - rx for albuterol and proair. . Pt went to ED from office, stating she does not think she will be able to get to her ENT in [place]. . Sinusitis - Pt has acute infection - pain in face, maxillary region, Pt informed to use decongestant, RX given to patient, sinus rinses also recommended. Call if symptoms do not show improvement. Roxannealog injections today in the office Tinea-nystatin powder [...]
--- OUTSIDE RECORDS SUMMARY | 2019-04-16 04:42 | XMS REPORT | CCD ---
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) and also during college she was exposed to smoke during her work in college 2013 Marital status Unknown Since 200406/26/2011 Number of children Unknown 3 2 daughters, 1 son 06/26/[address]: 900963728 Never drinks alcohol 06/26/2011 Has the patient [...] PENICILLINS Unknown 06/26/2011 No Inactive Date Active [id number] REDUCTASE INHIBITORS Unknown 06/26/2011 No Inactive Date [...] 06/11/2015 Unknown Pelvic and perineal pain ICD-9: [id number] ICD-10: R10.2 Active 06/11/2015 Unknown Well woman [...] 06/11/2015 Active Pelvic and perineal pain ICD-9: [id number] ICD-10: R10.2 06/11/2015 Active Well woman exam [...] Start Date Stop Date Status Fill Instructions Singulair 10 mg tablet RxNorm: 937927 TAKE 1 TABLET BY MOUTH DAILY 03/22/2019 03/15/2020 Active - First Attempt Ref: [id number] valacyclovir 1 gram tablet RxNorm: 045705 1 Tablet(s) PO BID 03/05/2019 05/03/2019 Active Celebrex 200 mg capsule RxNorm: 656105 TAKE 1 CAPSULE BY MOUTH TWO TIMES DAILY 02/01/2019 10/28/2019 Active - Ref: [id number] paroxetine 20 mg tablet RxNorm: 0008345 TAKE 1/2 TABLET BY MOUTH EVERY DAY 02/01/2019 10/28/2019 Active lidocaine 4 % topical patch RxNorm: 2001076 1 Patch TOP UD 12/03/2018 No Stop Date Active if too expensive get OTC salon pas amlodipine 5 mg tablet RxNorm: 661678 1 Tablet(s) PO daily 11/09/2018 06/06/2019 Active ProAir HFA 90 mcg/actuation aerosol inhaler RxNorm: 6342538 1-2 INH QID as needed 11/07/2018 03/06/2019 Inactive prednisone 10 mg tablet RxNorm: 058617 1 Tablet(s) PO UD 2tabs bid x3days, then 2tabs AM and 1tabPM x3days, then 1tab BID x 3days then 1tab AM x 3 days then stop 11/07/2018 No Stop Date Active albuterol sulfate 1.25 mg/3 mL solution for nebulization RxNorm: 195240 3 Milliliter(s) INH Q4 PRN as needed dyspnea from COPD 11/07/2018 11/01/2019 Active valacyclovir 1 gram tablet RxNorm: 686364 1 Tablet(s) PO BID 11/07/2018 11/20/2018 Inactive gemfibrozil 600 mg tablet RxNorm: 587549 1 TABLET(S) PO TAKE ONE TABLET BY MOUTH TWICE DAILY 10/15/2018 07/11/2019 Active Diflucan 150 mg tablet RxNorm: 274486 1 Tablet(s) PO daily 09/04/2018 09/13/2018 Inactive amlodipine 2.5 mg tablet RxNorm: 695713 1 Tablet(s) PO daily 09/04/2018 11/08/2018 Inactive albuterol sulfate 1.25 mg/3 mL solution for nebulization RxNorm: 925776 3 Milliliter(s) INH Q4 PRN as needed dyspnea 07/10/2018 11/06/2018 Inactive Diflucan 150 mg tablet RxNorm: 296681 1 Tablet(s) PO daily x 3 days then may repeat in 10 days if symptoms are not resolved in throat 06/19/2018 06/30/2018 Inactive Keflex 500 mg capsule RxNorm: 064525 1 Capsule(s) PO TID 06/15/2018 06/21/2018 Inactive Keflex 500 mg capsule RxNorm: 005825 1 Capsule(s) PO TID 06/15/2018 06/14/2018 Inactive paroxetine 20 mg tablet RxNorm: 5312139 TAKE 1/2 TABLET BY MOUTH EVERY DAY 05/09/2018 01/31/2019 Inactive prednisone 20 mg tablet RxNorm: 372256 2 Tablet(s) PO daily 03/13/2018 03/22/2018 Inactive Celebrex 200 mg capsule RxNorm: 550691 TAKE 1 CAPSULE BY MOUTH TWO TIMES DAILY 03/08/2018 09/03/2018 Inactive - First Attempt Ref: [id number] Singulair 10 mg tablet RxNorm: 191375 Tablet(s) TAKE 1 TABLET BY MOUTH DAILY 02/27/2018 02/21/2019 Inactive Kenalog 40 mg/mL suspension for injection RxNorm: 1793770 1 Milliliter(s) Inj 02/02/2018 02/02/2018 Inactive Singulair 10 mg tablet RxNorm: 773516 TAKE 1 TABLET BY MOUTH DAILY 01/05/2018 02/26/2018 Inactive - First Attempt Ref: [id number] pantoprazole 40 mg tablet,delayed release RxNorm: 650598 Tablet(s) TAKE 1 TABLET DAILY 12/19/2017 01/07/2018 Inactive gemfibrozil 600 mg tablet RxNorm: 778745 1 TABLET(S) PO TAKE ONE TABLET BY MOUTH TWICE DAILY 12/05/2017 08/31/2018 Inactive albuterol sulfate 1.25 mg/3 mL solution for nebulization RxNorm: 838487 3 Milliliter(s) INH Q4 PRN as needed dyspnea 11/22/2017 05/20/2018 Inactive albuterol sulfate 1.25 mg/3 mL solution for nebulization RxNorm: 754670 3 Milliliter(s) INH Q4 PRN as needed dyspnea 11/02/2017 11/21/2017 Inactive methylprednisolone 4 mg tablets in a dose pack RxNorm: 759266 1 Tablet(s) PO UD 09/01/2017 No Stop Date Active albuterol sulfate 1.25 mg/3 mL solution for nebulization RxNorm: 289206 3 Milliliter(s) INH Q4 PRN as needed dyspnea 09/01/2017 11/01/2017 Inactive Keflex 500 mg capsule RxNorm: 015691 1 Capsule(s) PO TID 09/01/2017 09/10/2017 Inactive methylprednisolone 4 mg tablets in a dose pack RxNorm: 278934 1 Tablet(s) PO UD To start tomorrow 08/21/2017 08/31/2017 Inactive Kenalog 40 mg/mL suspension for injection RxNorm: 9554698 Milliliter(s) Inj 08/21/2017 08/21/2017 Inactive Levaquin 500 mg tablet RxNorm: 906592 1 Tablet(s) PO daily 08/21/2017 08/27/2017 Inactive Ativan 0.5 mg tablet RxNorm: 388303 1 Tablet(s) PO 1 hour before MRI, may repeat dose x1 07/21/2017 07/20/2017 Inactive Ativan 0.5 mg tablet RxNorm: 076106 1 Tablet(s) PO 1 hour before MRI, may repeat dose x1 07/21/2017 07/21/2017 Inactive ProAir HFA 90 mcg/actuation aerosol inhaler RxNorm: 4522639 1-2 INH QID as needed 07/18/2017 11/14/2017 Inactive Kenalog 40 mg/mL suspension for injection RxNorm: 8976091 Milliliter(s) Inj 06/30/2017 06/30/2017 Inactive albuterol sulfate 1.25 mg/3 mL solution for nebulization RxNorm: 910096 3 Milliliter(s) INH Q4 PRN as needed dyspnea 06/07/2017 08/31/2017 Inactive Keflex 500 mg capsule RxNorm: 929191 1 Capsule(s) PO TID 06/02/2017 06/01/2017 Inactive Keflex 500 mg capsule RxNorm: 599022 1 Capsule(s) PO TID 06/02/2017 06/08/2017 Inactive methylprednisolone 4 mg tablets in a dose pack RxNorm: 283686 1 Tablet(s) PO UD To start tomorrow 05/10/2017 08/20/2017 Inactive Kenalog 40 mg/mL suspension for injection RxNorm: 5689974 Milliliter(s) Inj 05/09/2017 05/09/2017 Inactive Voltaren 1 % topical gel RxNorm: 630045 1 Application TOP TID as needed 05/08/2017 No Stop Date Active paroxetine 20 mg tablet RxNorm: 7088992 TAKE 1/2 TABLET BY MOUTH EVERY DAY 05/03/2017 04/27/2018 Inactive gemfibrozil 600 mg tablet RxNorm: 596587 1 TABLET(S) PO TAKE ONE TABLET BY MOUTH TWICE DAILY 02/21/2017 11/17/2017 Inactive Celebrex 200 mg capsule RxNorm: 088215 1 Capsule(s) PO BID 02/08/2017 02/02/2018 Inactive Celebrex 200 mg capsule RxNorm: 054689 1 Capsule(s) PO BID TAKE 1 CAPSULE TWICE DAILY 02/02/2017 02/07/2017 Inactive ketoconazole 2 % shampoo RxNorm: 625901 1 Application TOP daily x 1 week then weekly as needed for rash 01/31/2017 No Stop Date Active DC topical cream ProAir RespiClick 90 mcg/actuation breath activated RxNorm: 9523272 1 -2 INH Q4H as needed ASTHMA 01/31/2017 07/17/2017 Inactive Kenalog 40 mg/mL suspension for injection RxNorm: 3675576 1.5 Milliliter(s) Inj 01/30/2017 01/30/2017 Inactive Levaquin 500 mg tablet RxNorm: 004790 1 Tablet(s) PO daily 01/30/2017 02/05/2017 Inactive Celebrex 200 mg capsule RxNorm: 397473 1 Capsule(s) PO BID TAKE 1 CAPSULE TWICE DAILY 01/30/2017 02/01/2017 Inactive methylprednisolone 4 mg tablets in a dose pack RxNorm: 259124 1 Tablet(s) PO UD 01/30/2017 05/08/2017 Inactive ketoconazole 2 % shampoo RxNorm: 458721 1 Application TOP daily x 1 week then weekly as needed for rash 12/30/2016 01/30/2017 Inactive DC topical cream aspirin 81 mg tablet,delayed release RxNorm: 149210 1 Tablet(s) PO daily 12/29/2016 No Stop Date Active ketoconazole 2 % topical cream RxNorm: 653786 1 Application TOP daily x 1 week then weekly as needed for rash 12/29/2016 12/29/2016 Inactive Singulair 10 mg tablet RxNorm: 685274 Tablet(s) TAKE 1 TABLET DAILY 11/30/2016 11/23/2017 Inactive pantoprazole 40 mg tablet,delayed release RxNorm: 194713 Tablet(s) TAKE 1 TABLET DAILY 11/30/2016 11/23/2017 Inactive paroxetine 20 mg tablet RxNorm: 4880964 Tablet(s) TAKE ONE-HALF TABLET BY MOUTH EVERY DAY 11/25/2016 05/02/2017 Inactive paroxetine 20 mg tablet RxNorm: 0052576 Tablet(s) TAKE ONE-HALF TABLET BY MOUTH EVERY DAY 11/17/2016 11/24/2016 Inactive Levaquin 500 mg tablet RxNorm: 487010 1 Tablet(s) PO daily 10/11/2016 11/24/2016 Inactive pantoprazole 40 mg tablet,delayed release RxNorm: 018023 TAKE 1 TABLET DAILY 08/22/2016 11/29/2016 Inactive gemfibrozil 600 mg tablet RxNorm: 567637 1 TABLET(S) PO TAKE ONE TABLET BY MOUTH TWICE DAILY 05/06/2016 01/30/2017 Inactive temazepam 7.5 mg capsule RxNorm: 847530 1 Capsule(s) PO HS PRN 03/24/2016 No Stop Date Active Singulair 10 mg tablet RxNorm: 822905 Tablet(s) TAKE 1 TABLET DAILY 03/07/2016 11/29/2016 Inactive Singulair 10 mg tablet RxNorm: 607227 Tablet(s) TAKE 1 TABLET DAILY 03/07/2016 03/06/2016 Inactive pantoprazole 40 mg tablet,delayed release RxNorm: 798688 TAKE 1 TABLET DAILY 02/15/2016 08/12/2016 Inactive Celebrex 200 mg capsule RxNorm: 078718 1 Capsule(s) PO BID TAKE 1 CAPSULE TWICE DAILY 01/25/2016 01/17/2017 Inactive gemfibrozil 600 mg tablet RxNorm: 495323 1 TABLET(S) PO TAKE ONE TABLET BY MOUTH TWICE DAILY 11/10/2015 05/05/2016 Inactive Patient requests 90 days supply Levaquin 500 mg tablet RxNorm: 126365 1 Tablet(s) PO daily 09/29/2015 10/08/2015 Inactive albuterol sulfate 1.25 mg/3 mL solution for nebulization RxNorm: 533677 3 Milliliter(s) INH PRN as needed dyspnea 09/25/2015 06/06/2017 Inactive Levaquin 500 mg tablet RxNorm: 663049 1 Tablet(s) PO daily 08/24/2015 09/02/2015 Inactive albuterol sulfate HFA 90 mcg/actuation aerosol inhaler RxNorm: 7968015 1-2 Puff(s) INH Q4 PRN as needed 08/24/2015 01/30/2017 Inactive sample and rX provided albuterol sulfate HFA 90 mcg/actuation aerosol inhaler RxNorm: 1844996 1-2 Puff(s) INH Q4 PRN as needed 08/24/2015 08/23/2015 Inactive sample and rX provided paroxetine 20 mg tablet RxNorm: 7390274 Tablet(s) TAKE ONE-HALF TABLET BY MOUTH EVERY DAY 08/21/2015 03/17/2016 Inactive pantoprazole 40 mg tablet,delayed release RxNorm: 706505 1 Tablet(s) PO daily 07/27/2015 07/26/2015 Inactive pantoprazole 40 mg tablet,delayed release RxNorm: 634967 1 Tablet(s) PO daily 07/27/2015 01/22/2016 Inactive gemfibrozil 600 mg tablet RxNorm: 446667 1 TABLET(S) PO TAKE ONE TABLET BY MOUTH TWICE DAILY 07/10/2015 11/09/2015 Inactive nystatin (bulk) 100 million unit powder RxNorm: 1 APPLICATION TOP TID 06/25/2015 07/15/2015 Inactive Kenalog 40 mg/mL suspension for injection RxNorm: 6877823 Milliliter(s) Inj 05/29/2015 05/29/2015 Inactive Keflex 500 mg capsule RxNorm: 254514 1 Capsule(s) PO TID 05/29/2015 06/07/2015 Inactive nystatin (bulk) 100 million unit powder RxNorm: 1 Application TOP TID 05/29/2015 06/18/2015 Inactive ceftriaxone 500 mg solution for injection RxNorm: 9870689 Inj 05/29/2015 05/29/2015 Inactive Fioricet 50 mg-325 mg-40 mg tablet RxNorm: 840580 1 Tablet(s) PO Q6 PRN as needed 04/20/2015 07/18/2015 Inactive Bactroban 2 % topical ointment RxNorm: 002597 1 TOP BID 03/26/2015 No Stop Date Active Align 4 mg capsule RxNorm: 396763 1 Capsule(s) PO daily 03/19/2015 12/28/2016 Inactive Singulair 10 mg tablet RxNorm: 286156 TAKE 1 TABLET DAILY 03/02/2015 02/24/2016 Inactive Bactroban 2 % topical ointment RxNorm: 604942 1 APPLICATION TOP BID 12/02/2014 12/11/2014 Inactive right nare ceftriaxone 500 mg solution for injection RxNorm: 528675 Inj 10/15/2014 10/15/2014 Inactive Keflex 500 mg capsule RxNorm: 696973 1 Capsule(s) PO BID 10/15/2014 10/28/2014 Inactive Kenalog 40 mg/mL suspension for injection RxNorm: 4415021 Milliliter(s) Inj 10/15/2014 10/15/2014 Inactive prednisone 20 mg tablet RxNorm: 293328 1 Tablet(s) PO daily 10/15/2014 10/24/2014 Inactive Tudorza Pressair 400 mcg/actuation breath activated RxNorm: 3723753 1 Puff(s) INH BID 10/15/2014 11/13/2014 Inactive gemfibrozil 600 mg tablet RxNorm: 011168 1 Tablet(s) PO TAKE ONE TABLET BY MOUTH TWICE DAILY 09/29/2014 06/25/2015 Inactive Celebrex 200 mg capsule RxNorm: 145060 1 Capsule(s) PO BID TAKE 1 CAPSULE TWICE DAILY 07/31/2014 07/25/2015 Inactive paroxetine 20 mg tablet RxNorm: 661772 TAKE ONE-HALF TABLET BY MOUTH EVERY DAY 07/15/2014 02/09/2015 Inactive Bactroban 2 % topical ointment RxNorm: 234428 1 Application TOP BID 04/10/2014 04/14/2014 Inactive right nare Singulair 10 mg tablet RxNorm: 067845 1 Tablet(s) PO daily TAKE 1 TABLET DAILY 02/27/2014 02/21/2015 Inactive Celebrex 200 mg capsule RxNorm: 699171 1 Capsule(s) PO BID TAKE 1 CAPSULE TWICE DAILY 02/27/2014 07/30/2014 Inactive ciprofloxacin 500 mg tablet RxNorm: 066112 1 Tablet(s) PO BID 02/17/2014 02/26/2014 Inactive prednisone 20 mg tablet RxNorm: 762651 1 Tablet(s) PO daily 02/17/2014 02/21/2014 Inactive Fioricet 50 mg-325 mg-40 mg tablet RxNorm: 952228 1 Tablet(s) PO Q6 PRN 02/17/2014 05/16/2014 Inactive Kenalog 40 mg/mL suspension for injection RxNorm: 4362856 Milliliter(s) Inj 02/17/2014 02/17/2014 Inactive Bactrim 400 mg-80 mg tablet RxNorm: 432284 1 Tablet(s) PO BID 12/25/2013 12/24/2013 Inactive Omnicef 300 mg capsule RxNorm: 037540 1 Capsule(s) PO BID 12/25/2013 01/03/2014 Inactive please dc the bactrim order. pt states she is allergic. Bactrim 400 mg-80 mg tablet RxNorm: 839611 1 Tablet(s) PO BID 12/25/2013 12/25/2013 Inactive gemfibrozil 600 mg tablet RxNorm: 976965 Tablet(s) PO TAKE ONE TABLET BY MOUTH TWICE DAILY 12/12/2013 09/28/2014 Inactive Rocephin 500 mg solution for injection RxNorm: 344518 Inj 12/05/2013 12/05/2013 Inactive Bactroban 2 % topical ointment RxNorm: 313674 1 Application TOP BID right nare 12/05/2013 12/11/2013 Inactive Keflex 500 mg capsule RxNorm: 808220 1 Capsule(s) PO BID 12/05/2013 12/11/2013 Inactive paroxetine 20 mg tablet RxNorm: 353398 Tablet(s) PO TAKE ONE-HALF TABLET BY MOUTH EVERY DAY 07/15/2013 07/14/2014 Inactive Influenza Virus Vaccine 0.5 mL RxNorm: IM 07/09/2013 07/09/2013 Inactive Singulair 10 mg tablet RxNorm: 921986 Tablet(s) PO TAKE 1 TABLET DAILY 05/30/2013 02/26/2014 Inactive Celebrex 200 mg capsule RxNorm: 010190 Capsule(s) PO TAKE 1 CAPSULE TWICE DAILY 04/13/2013 02/26/2014 Inactive Singulair 10 mg tablet RxNorm: 471254 1 Tablet(s) PO daily 02/28/2013 05/29/2013 Inactive gemfibrozil 600 mg tablet RxNorm: 418797 Tablet(s) PO TAKE ONE TABLET BY MOUTH TWICE DAILY 11/28/2012 12/11/2013 Inactive Rocephin 500 mg Solution for Injection RxNorm: 6550109 1 Milliliter(s) Inj 10/23/2012 10/23/2012 Inactive paroxetine 20 mg tablet RxNorm: 3759864 1/2 Tablet(s) PO daily 07/13/2012 07/14/2013 Inactive TAKE ONE-HALF TABLET BY MOUTH EVERY DAY Fioricet 50 mg-325 mg-40 mg tablet RxNorm: 231270 1 Tablet(s) PO Q6 PRN 04/17/2012 07/15/2012 Inactive gemfibrozil 600 mg tablet RxNorm: 572347 Tablet(s) PO 11/17/2011 11/27/2012 Inactive TAKE ONE TABLET BY MOUTH TWICE DAILY gemfibrozil 600 mg Tab RxNorm: 128392 1 Tablet(s) PO BID 11/16/2011 11/16/2011 Inactive MIDRIN 325 mg-65 mg-100 mg Cap RxNorm: 855129 1 Capsule(s) PO Q4-6H 09/15/2011 04/17/2012 Inactive max 8 tabs/24 hours Influenza Virus Vaccine 0.5 mL RxNorm: IM 07/05/2011 07/05/2011 Inactive Pulmicort Flexhaler 180 mcg/Inhalation Breath Activated RxNorm: 9483524 1 Puff(s) INH daily 06/27/2011 07/26/2011 Inactive Singulair 10 mg tablet RxNorm: 411046 1 Tablet(s) PO daily 06/27/2011 07/26/2011 Inactive Celebrex 200 mg capsule RxNorm: 639219 1 Capsule(s) PO BID 06/27/2011 04/12/2013 Inactive paroxetine 20 mg tablet RxNorm: 9142415 1/2 Tablet(s) PO daily 06/27/2011 07/13/2012 Inactive gemfibrozil 600 mg Tab RxNorm: 597179 1 Tablet(s) PO BID 06/27/2011 11/15/2011 Inactive requests 90 day supply-refilled but needs labs amaury. vitamin B6-vitamin E-magnesium Oral RxNorm: Oral No Start Date Active Advil Oral RxNorm: Oral No Start Date Active gabapentin 100 mg tablet RxNorm: 041656 1 Tablet(s) PO PRN No Start Date Active ranitidine 150 mg tablet RxNorm: 524456 1 Tablet(s) PO daily No Start Date Active Claritin 10 mg tablet RxNorm: 863616 1 Tablet(s) PO daily No Start Date Active Flexeril 5 mg Tab RxNorm: 690389 1/2-2 Tablet(s) PO PRN 1/2-1 po q 8 hours prn back pain or muscle spasms No Start Date Active Dulera 200 mcg-5 mcg/actuation HFA aerosol inhaler RxNorm: 1508958 1 INH BID No Start Date Active gabapentin 300 mg capsule RxNorm: 529402 1 Capsule(s) PO TID No Start Date Active folic acid Oral RxNorm: Oral No Start Date Active baclofen 20 mg tablet RxNorm: 994998 1 Tablet(s) PO TID as needed No Start Date Active vitamin T83-oxmbzdy B1 Oral RxNorm: Oral No Start Date Active chlordiazepoxide-clidinium 5 mg-2.5 mg Cap RxNorm: 470898 1 Capsule(s) PO PRN For IBS No Start Date Active Singulair 10 mg Tab RxNorm: 765485 1 Tablet(s) PO daily No Start Date 06/26/2011 Inactive Omnicef 300 mg capsule RxNorm: 481151 1 Capsule(s) PO BID No Start Date 12/24/2013 Inactive albuterol sulfate HFA 90 mcg/Actuation Aerosol Inhaler RxNorm: 5054797 1-2 Puff(s) INH Q4 PRN No Start Date 08/23/2015 Inactive sample and rX provided aspirin 81 mg Tab, Delayed Release RxNorm: 585922 1 Tablet(s) PO BID No Start Date 12/28/2016 Inactive Tudorza Pressair 400 mcg/actuation Breath Activated RxNorm: 2779504 1 Puff(s) INH BID No Start Date 10/14/2014 Inactive niacin ER 500 mg Tab RxNorm: 9403454 1 Tablet(s) PO QHS No Start Date 02/27/2013 Inactive Celebrex 200 mg Cap RxNorm: 841557 1 Capsule(s) PO BID No Start Date 06/26/2011 Inactive loratadine 10 mg Tab RxNorm: 621470 1 Tablet(s) PO daily No Start Date 02/27/2013 Inactive Nasonex 50 mcg/Actuation Deaver RxNorm: 602789 2 Deaver NASAL BID No Start Date 06/26/2011 Inactive Zithromax Z-Marty 250 mg Tab RxNorm: 728503 Tablet(s) PO No Start Date 07/11/2011 Inactive 2 tabs today, then tabs 2-5 daily Zithromax Z-Marty 250 mg tablet RxNorm: 225369 Tablet(s) PO UD No Start Date 04/21/2013 Inactive Tessalon Perles 100 mg Cap RxNorm: 091584 1 Capsule(s) PO PRN No Start Date 07/11/2011 Inactive albuterol sulfate HFA 90 mcg/Actuation Aerosol Inhaler RxNorm: 9160021 Inhalation No Start Date 06/27/2011 Inactive Nasacort AQ 55 mcg Nasal [place] Aerosol RxNorm: 6695787 1 [place] NASAL PRN No Start Date 12/28/2016 Inactive gemfibrozil 600 mg Tab RxNorm: 221413 1 Tablet(s) PO BID No Start Date 06/26/2011 Inactive Pulmicort Flexhaler 180 mcg/Inhalation Breath Activated RxNorm: 6928209 1 INH daily No Start Date 06/26/2011 Inactive paroxetine 20 mg Tab RxNorm: 8755723 1/2 Tablet(s) PO daily No Start Date 06/26/2011 Inactive MIDRIN 325 mg-65 mg-100 mg Cap RxNorm: 018179 1 Capsule(s) PO Q4-6H No Start Date 09/14/2011 Inactive max 8 tabs/24 hours beta carotene Oral RxNorm: Oral No Start Date 12/28/2016 Inactive Medication Administered Medication Codes Instructions Start Date Status Kenalog 40 mg/mL suspension for injection RxNorm: 4354377 1Milliliter 02/02/2018 No longer Active Kenalog 40 mg/mL suspension for injection RxNorm: 7418811 Milliliter 08/21/2017 No longer Active Kenalog 40 mg/mL suspension for injection RxNorm: 8226048 Milliliter 06/30/2017 No longer Active Kenalog 40 mg/mL suspension for injection RxNorm: 2432877 Milliliter 05/09/2017 No longer Active Kenalog 40 mg/mL suspension for injection RxNorm: 7292678 1.5Milliliter 01/30/2017 No longer Active Kenalog 40 mg/mL suspension for injection RxNorm: 7317296 Milliliter 05/29/2015 No longer Active ceftriaxone 500 mg solution for injection RxNorm: 8704875 05/29/2015 No longer Active Kenalog 40 mg/mL suspension for injection RxNorm: 9449868 Milliliter 10/15/2014 No longer Active ceftriaxone 500 mg solution for injection RxNorm: 413169 10/15/2014 No longer Active Kenalog 40 mg/mL suspension for injection RxNorm: 7615486 Milliliter 02/17/2014 No longer Active Rocephin 500 mg solution for injection RxNorm: 657003 12/05/2013 No longer Active Influenza Virus Vaccine 0.5 mL RxNorm: 07/09/2013 No longer Active Rocephin 500 mg Solution for Injection RxNorm: 6462005 1Milliliter 10/23/2012 No longer Active Influenza Virus [...] Pelvic and perineal pain ICD-10: R10.2 ICD-9: CUD2098 06/12/2015 Encounter for screening for malignant neoplasm [...] NO Growth Day 2 06/19/2018 Parathyroid Hormone Xjh679 PTH 81.40 pg/ml 05/10/2018 Comp Metabolic Kuu506 NA 142 mEq/L 05/10/2018 Comp Metabolic Gxg058 K 4.1 mEq/L 05/10/2018 Comp Metabolic Cri316 CL 105 mEq/L 05/10/2018 Comp Metabolic Whr397 CO2 27.0 mEq/L 05/10/2018 Comp Metabolic Wjy704 ANION GAP 14 05/10/2018 Comp Metabolic Yye678 GLUCOSE 95 mg/dL 05/10/2018 Comp Metabolic Zvx232 Creat 0.9 mg/dL 05/10/2018 Comp Metabolic Moe045 eGFR 65 ml/min/1.73m2 05/10/2018 Comp Metabolic Dst488 BUN 15 mg/dL 05/10/2018 Comp Metabolic Hbh215 B/C Ratio 16.9 Ratio 05/10/2018 Comp Metabolic Rzd429 CALCIUM 9.8 mg/dL 05/10/2018 Comp Metabolic Jnp631 ALK PHOS 77 U/L 05/10/2018 Comp Metabolic Pyo263 AST(SGOT) 24 U/L 05/10/2018 Comp Metabolic Lll401 ALT(SGPT) 23 U/L 05/10/2018 Comp Metabolic Tmq874 BILI T 0.5 mg/dL 05/10/2018 Comp Metabolic War467 ALBUMIN 4.8 g/dL 05/10/2018 Comp Metabolic Acj102 TPRO 7.2 g/dL 05/10/2018 Comp Metabolic Ayw450 GLOB 2.5 g/dL 05/10/2018 Comp Metabolic Xfp744 A/G Ratio 1.9 Ratio 05/10/2018 Comp Metabolic Hee167 Osmo 284 mOsmo 05/10/2018 Vitamin D 25 Oh Qqx3862 VITAMIN D, 25 HYDROXY 51.58 ng/mL 05/10/2018 [...] 32.1 pg 05/10/2018 Cbc With Differential Ord2 [place]% 9.6 % 05/10/2018 Cbc With Differential Ord2 [...] 3.52 K/ul 05/10/2018 Cbc With Differential Ord2 [place] ABS# 0.8 K/ul 05/10/2018 Cbc With Differential [...] 31.6 pg 01/09/2018 Cbc With Differential Ord2 [place]% 9.8 % 01/09/2018 Cbc With Differential Ord2 [...] 3.05 K/ul 01/09/2018 Cbc With Differential Ord2 [place] ABS# 0.7 K/ul 01/09/2018 Cbc With Differential Ord2 E[place] ABS# 0.5 K/ul 01/09/2018 Cbc With Differential Ord2 Baso ABS# 0.0 K/ul 01/09/2018 Tsh Ord6 TSH (3rd IS) 3.12 uIU/mL 01/09/2018 Comp Metabolic Hxs762 NA 140 mEq/L 01/09/2018 Comp Metabolic Idb751 K 4.0 mEq/L 01/09/2018 Comp Metabolic Rpv659 CL 105 mEq/L 01/09/2018 Comp Metabolic Yrb103 CO2 28.0 mEq/L 01/09/2018 Comp Metabolic Ewf611 ANION GAP 11 01/09/2018 Comp Metabolic Nnv193 GLUCOSE 98 mg/dL 01/09/2018 Comp Metabolic Svn358 Creat 0.7 mg/dL 01/09/2018 Comp Metabolic Tjn125 eGFR 87 ml/min/1.73m2 01/09/2018 Comp Metabolic Ygq532 BUN 14 mg/dL 01/09/2018 Comp Metabolic Aoe931 B/C Ratio 20.3 Ratio 01/09/2018 Comp Metabolic Pef769 CALCIUM 9.8 mg/dL 01/09/2018 Comp Metabolic Dbl584 ALK PHOS 113 U/L 01/09/2018 Comp Metabolic Bvw894 AST(SGOT) 22 U/L 01/09/2018 Comp Metabolic Xqp895 ALT(SGPT) 22 U/L 01/09/2018 Comp Metabolic Zkj117 BILI T 0.5 mg/dL 01/09/2018 Comp Metabolic Fjw934 ALBUMIN 4.6 g/dL 01/09/2018 Comp Metabolic Rrh102 TPRO 7.0 g/dL 01/09/2018 Comp Metabolic Dzi037 GLOB 2.4 g/dL 01/09/2018 Comp Metabolic Epk330 A/G Ratio 2.0 Ratio 01/09/2018 Comp Metabolic Oyo696 Osmo 280 mOsmo 01/09/2018 Lipid Ord30 CHOL 163 mg/dL 12/27/2016 Lipid Ord30 HDL 63.0 mg/dl 12/27/2016 Lipid Ord30 TRIG 62 mg/dL 12/27/2016 Lipid Ord30 LDL 88 mg/dL 12/27/2016 Lipid Ord30 C/HDL 2.6 Ratio 12/27/2016 Tsh Ord6 hTSH II 2.47 uIU/mL 12/27/2016 Comp Metabolic Ksj685 NA 140 mEq/L 12/27/2016 Comp Metabolic Rqr015 K 4.0 mEq/L 12/27/2016 Comp Metabolic Riy387 CL 105 mEq/L 12/27/2016 Comp Metabolic Men458 CO2 28.0 mEq/L 12/27/2016 Comp Metabolic Thx864 ANION GAP 11 12/27/2016 Comp Metabolic Ozy047 GLUCOSE 102 mg/dL 12/27/2016 Comp Metabolic Dew278 Creat 0.7 mg/dL 12/27/2016 Comp Metabolic Crw932 eGFR 81 ml/min/1.73m2 12/27/2016 Comp Metabolic Nso407 BUN 15 mg/dL 12/27/2016 Comp Metabolic Pod728 B/C Ratio 20.3 Ratio 12/27/2016 Comp Metabolic Fyx368 CALCIUM 10.0 mg/dL 12/27/2016 Comp Metabolic Htj219 ALK PHOS 110 U/L 12/27/2016 Comp Metabolic Yqk412 AST(SGOT) 20 U/L 12/27/2016 Comp Metabolic Imp958 ALT(SGPT) 22 U/L 12/27/2016 Comp Metabolic Hdl027 BILI T 0.5 mg/dL 12/27/2016 Comp Metabolic Xrs439 ALBUMIN 4.7 g/dL 12/27/2016 Comp Metabolic Wzv214 TPRO 7.2 g/dL 12/27/2016 Comp Metabolic Auy918 GLOB 2.5 g/dL 12/27/2016 Comp Metabolic Gof292 A/G Ratio 1.9 Ratio 12/27/2016 Comp Metabolic Ivq238 Osmo 280 mOsmo 12/27/2016 Cbc With Differential [...] 31.9 pg 12/27/2016 Cbc With Differential Ord2 [place]% 8.6 % 12/27/2016 Cbc With Differential Ord2 [...] 3.60 K/ul 12/27/2016 Cbc With Differential Ord2 [place] ABS# 0.6 K/ul 12/27/2016 Cbc With Differential [...] 31.7 pg 06/13/2016 Cbc With Differential Ord2 [place]% 8.4 % 06/13/2016 Cbc With Differential Ord2 [...] 3.26 K/ul 06/13/2016 Cbc With Differential Ord2 [place] ABS# 0.6 K/ul 06/13/2016 Cbc With Differential Ord2 Eos ABS# 1.0 K/ul 06/13/2016 Cbc With Differential Ord2 Baso ABS# 0.0 K/ul 06/13/2016 Comp Metabolic Wte033 NA 141 mEq/L 03/25/2016 Comp Metabolic Ldq424 K 4.0 mEq/L 03/25/2016 Comp Metabolic Mzu722 CL 103 mEq/L 03/25/2016 Comp Metabolic Gdn376 CO2 28.0 mEq/L 03/25/2016 Comp Metabolic Eym729 ANION GAP 14 03/25/2016 Comp Metabolic Qcv751 GLUCOSE 91 mg/dL 03/25/2016 Comp Metabolic Oju893 Creat 0.8 mg/dL 03/25/2016 Comp Metabolic Uje622 eGFR 70 ml/min/1.73m2 03/25/2016 Comp Metabolic Rzu135 BUN 16 mg/dL 03/25/2016 Comp Metabolic Ylq032 B/C Ratio 19.0 Ratio 03/25/2016 Comp Metabolic Iqe532 CALCIUM 9.8 mg/dL 03/25/2016 Comp Metabolic Ddu514 ALK PHOS 111 U/L 03/25/2016 Comp Metabolic Zup390 AST(SGOT) 19 U/L 03/25/2016 Comp Metabolic Kmt513 ALT(SGPT) 19 U/L 03/25/2016 Comp Metabolic Are962 BILI T 0.6 mg/dL 03/25/2016 Comp Metabolic Wvy996 ALBUMIN 4.6 g/dL 03/25/2016 Comp Metabolic Ogr851 TPRO 7.4 g/dL 03/25/2016 Comp Metabolic Clm746 GLOB 2.8 g/dL 03/25/2016 Comp Metabolic Pgz901 A/G Ratio 1.7 Ratio 03/25/2016 Comp Metabolic Ilr581 Osmo 282 mOsmo 03/25/2016 Tsh Ord6 hTSH [...] 32.0 pg 03/25/2016 Cbc With Differential Ord2 [place]% 9.4 % 03/25/2016 Cbc With Differential Ord2 [...] 3.20 K/ul 03/25/2016 Cbc With Differential Ord2 [place] ABS# 0.8 K/ul 03/25/2016 Cbc With Differential Ord2 Eos ABS# 0.8 K/ul 03/25/2016 Cbc With Differential Ord2 Baso ABS# 0.0 K/ul 03/25/2016 GFR CALC 3068569 GFR AA >60 ML/MIN 03/14/2012 GFR CALC 4308399 GFR NON-AA >60 ML/MIN 03/14/2012 TSH 1709846 TSH 2.609 uIU/ML 03/14/2012 LIPID GRP HDL TEST 63 MG/DL 03/14/2012 LIPID GRP TRIG 68 MG/DL 03/14/2012 LIPID GRP TEST LDL 88 MG/DL 03/14/2012 LIPID GRP CHOL 165 MG/DL 03/14/2012 LIPID GRP RCHOL/HDL 2.62 RATIO 03/14/2012 CHEM 14 20280419 AST 24 U/L 03/14/2012 CHEM 20280419 ALT 26 IU/L 03/14/2012 CHEM 14 20280419 BUN 17 MG/DL 03/14/2012 CHEM 14 20280419 ALBUMIN 4.8 GM/DL 03/14/2012 CHEM 14 20280419 CHLORIDE 106 MMOL/L 03/14/2012 CHEM 14 20280419 BILI TOT 0.6 MG/DL 03/14/2012 CHEM 14 4777920 ALK PHOS 115 U/L 03/14/2012 CHEM 14 6253744 SODIUM 141 MMOL/L 03/14/2012 CHEM 14 4631657 CREATININE 0.78 MG/DL 03/14/2012 CHEM 14 1399796 CALCIUM 9.9 MG/DL 03/14/2012 CHEM 14 9956325 POTASSIUM 4.2 MMOL/L 03/14/2012 CHEM 14 0696219 PROT TOT 7.4 GM/DL 03/14/2012 CHEM 14 7344637 GLUCOSE 91 MG/DL 03/14/2012 CHEM 14 7753675 BICARB 27 MMOL/L 03/14/2012 CHEM 14 1220212 ANION GAP 8 MEQ/L 03/14/2012 CBC 7998399 WBC 5.9 10e9/L 03/14/2012 CBC 0555829 RBC 4.62 10e12/L 03/14/2012 CBC 0077785 HGB 14.5 g/dL 03/14/2012 CBC 1361187 HCT DET 42.4 % 03/14/2012 CBC 5795824 MCV 91.8 fL 03/14/2012 CBC 1427270 MCH 31.4 pg 03/14/2012 CBC 3427039 MCHC 34.2 g/dL 03/14/2012 CBC 8586371 PLT 370 10e9/L 03/14/2012 CBC 9009240 MPV 10.2 fL 03/14/2012 CBC 1734024 NANO % 36.6 % 03/14/2012 CBC 7608866 LY % 47.6 % 03/14/2012 CBC 5222717 MON % 10.0 % 03/14/2012 CBC 2839846 EOS % 5.6 % 03/14/2012 CBC 6955099 BASO % 0.2 % 03/14/2012 CBC 2801634 RDW 12.3 % 03/14/2012 CBC 4473997 ABS NANO 2.16 10e9/L 03/14/2012 CBC 4468552 ABS LYMPH 2.81 10e9/L 03/14/2012 CBC 0780409 ABS MONO 0.59 10e9/L 03/14/2012 CBC 1157992 ABS EOS 0.33 10e9/L 03/14/2012 CBC 4279842 ABS BASO 0.01 10e9/L 03/14/2012 CBC 2181474 RDW-SD 40.4 fL 03/14/2012 Review of Systems [...] tenderness 12/03/2018 None Full Exam - General 1995 Constitutional general appearance Overall: well developed 11/19/2018 None Full Exam - General 1995 Constitutional general appearance Overall: in no acute distress 11/19/2018 None Full Exam - General 1995 Constitutional general appearance Overall: well nourished 11/19/2018 None Full Exam - General 1994 Eyes pupils and irises Overall: pupils equal, round, reactive to light and accomodation 11/19/2018 facial flattening on right from hair-line to chin Full Exam - General 1995 Ears/Nose/Throat otoscopic exam Overall: external auditory canals clear 11/19/2018 None Full Exam - General 1994 Ears/Nose/Throat otoscopic exam Overall: tympanic membranes clear 11/19/2018 None Full Exam - General 1994 Ears/Nose/Throat oral cavity/pharynx/larynx Overall: oral mucosa clear 11/19/2018 None Full Exam - General 1995 Ears/Nose/Throat oral cavity/pharynx/larynx Overall: oropharyngeal mucosa clear 11/19/2018 None Full Exam - General 1995 Ears/Nose/Throat oral cavity/pharynx/larynx Overall: no masses 11/19/2018 [...] clear 11/07/2018 None Full Exam - General 1995 Ears/Nose/Throat [...] benign 06/30/2017 None Full Exam - General 1995 Constitutional general appearance Overall: well developed 05/08/2017 [...] 1995 Ears/Nose/Throat oral cavity/pharynx/larynx Overall: no masses 07/09/2013 [...] Formatting Model/CDA Sections, Assigned to/Juana Ji CPT-4: [id number] 06/28/2018 DRAIN/INJECT JOINT/BURSA CPT-4: 96635 01/29/2018 TRIAMCINOLONE ACET INJ NOS CPT-4: J3301 01/29/2018 PPPS, SUBSEQ VISIT CPT- 4: G0439 01/08/2018 THER/PROPH/DIAG INJ SC/IM CPT-4: 04777 08/21/2017 TRIAMCINOLONE ACET INJ NOS CPT-4: J3301 08/21/2017 ADMIN INFLUENZA VIRUS VAC CPT-4: G0008 07/18/2017 FLU VACC PRSV FREE INC ANTIG CPT-4: 97816 07/18/2017 TRIAMCINOLONE ACET INJ NOS CPT-4: J3301 06/30/2017 TRIAMCINOLONE ACET INJ NOS CPT-4: J3301 05/09/2017 THER/PROPH/DIAG INJ SC/IM CPT-4: 59737 05/09/2017 TRIAMCINOLONE ACET INJ NOS CPT-4: J3301 01/30/2017 PPPS, SUBSEQ VISIT CPT- 4: G0439 01/02/2017 ADMIN INFLUENZA VIRUS VAC CPT-4: G0008 07/13/2016 FLU VACC PRSV FREE INC ANTIG CPT-4: 43367 07/13/2016 ADMIN INFLUENZA VIRUS VAC CPT-4: G0008 07/10/2015 FLU VACC 4 KARI 3 YRS PLUS IM Formatting Model/CDA Sections, Assigned to/Juana Ji SNLIZABETH CT: [id number] CPT-4: 52327Mcekcfq 07/10/2015 TRIAMCINOLONE ACET INJ NOS CPT-4: J3301 05/29/2015 ROCEPHIN, PER 250 MG CPT- 4: J0696 05/29/2015 THER/PROPH/DIAG INJ SC/IM CPT-4: 20363 10/15/2014 TRIAMCINOLONE ACET INJ NOS CPT-4: J3301 10/15/2014 ROCEPHIN, PER 250 MG CPT- 4: J0696 10/15/2014 THER/PROPH/DIAG INJ SC/IM CPT-4: 61443 02/17/2014 TRIAMCINOLONE ACET INJ NOS CPT-4: J3301 02/17/2014 ROCEPHIN, PER 250 MG CPT- 4: J0696 12/05/2013 ADMIN INFLUENZA VIRUS VAC CPT-4: G0008 07/09/2013 FLULAVAL VACC, 3 YRS & >, IM CPT-4: Q2036 07/09/2013 ROCEPHIN, PER 250 MG CPT- 4: J0696 10/23/2012 PRESCRIP TRANSMIT VIA ERX SY CPT-4: G8553 10/23/2012 ROUTINE VENIPUNCTURE CPT- 4: 36843 03/14/2012 ADMIN INFLUENZA VIRUS VAC CPT-4: G0008 07/05/2011 FLULAVAL VACC, 3 YRS & >, IM CPT-4: Q2036 07/05/2011 ROUTINE VENIPUNCTURE CPT- 4: 06034 06/28/2011 PRESCRIP TRANSMIT VIA ERX SY CPT-4: G8553 06/27/2011 Vital Signs Date Vital 01/24/2019 Blood Pressure 1: 138/74 Code: 8480-6 BMI: 32.9 Code: 46592-7 Heart Rate 1: 74 bpm Height: 5'2" SpO2: 97% Weight: 180 lbs 12/03/2018 Blood Pressure 1: 134/72 Code: 8480-6 BMI: 31.1 Code: 71775-8 Heart Rate 1: 89 bpm Height: 5'2" SpO2: 99% Weight: 170 lbs 11/19/2018 Blood Pressure 1: 134/56 Code: 8480-6 BMI: 31.1 Code: 93593-3 Heart Rate 1: 88 bpm Height: 5'2" SpO2: 98% Weight: 170 lbs 11/07/2018 Blood Pressure 1: 140/70 Code: 8480-6 BMI: 31.1 Code: 00650-5 Heart Rate 1: 91 bpm Height: 5'2" SpO2: 99% Weight: 170 lbs 09/04/2018 Blood Pressure 1: 140/80 Code: 8480-6 BMI: 31.3 Code: 45829-4 Heart Rate 1: 82 bpm Height: 5'2" SpO2: 95% Weight: 171 lbs 07/10/2018 Blood Pressure 1: 144/46 Code: 8480-6 BMI: 31.5 Code: 27374-8 Heart Rate 1: 86 bpm Height: 5'2" SpO2: 97% Weight: 172 lbs 06/19/2018 Blood Pressure 1: 150/80 Code: 8480-6 BMI: 31.5 Code: 39388-3 Heart Rate 1: 94 bpm Height: 5'2" SpO2: 96% Weight: 172 lbs 6 oz 01/29/2018 Blood Pressure 1: 148/66 Code: 8480-6 BMI: 31.8 Code: 36747-6 Heart Rate 1: 80 bpm Height: 5'2" SpO2: 96% Weight: 174 lbs 01/08/2018 Blood Pressure 1: 122/72 Code: 8480-6 BMI: 32.0 Code: 23948-2 Heart Rate 1: 79 bpm Height: 5'2" SpO2: 99% Weight: 175 lbs 08/21/2017 Blood Pressure 1: 162/78 Code: 8480-6 BMI: 32.2 Code: 69465-3 Heart Rate 1: 82 bpm Height: 5'2" SpO2: 97% Temperature: 36.6 (C) / 97.8 (F) Weight: 176 lbs 07/18/2017 Blood Pressure 1: 136/70 Code: 8480-6 BMI: 31.9 Code: 77976-6 Heart Rate 1: 81 bpm Height: 5'2" SpO2: 96% Weight: 174 lbs 8 oz 06/30/2017 Blood Pressure 1: 128/74 Code: 8480-6 BMI: 31.8 Code: 88826-1 Heart Rate 1: 89 bpm Height: 5'2" SpO2: 97% Weight: 174 lbs 05/08/2017 Blood Pressure 1: 148/82 Code: 8480-6 BMI: 30.9 Code: 46352-5 Heart Rate 1: 79 bpm Height: 5'2" SpO2: 95% Weight: 169 lbs 02/14/2017 Blood Pressure 1: 126/72 Code: 8480-6 Heart Rate 1: 76 bpm Height: 5'2" SpO2: 97% Weight: 01/31/2017 Blood Pressure 1: 154/80 Code: 8480-6 BMI: 32.0 Code: 32889-8 Heart Rate 1: 81 bpm Height: 5'2" SpO2: 97% Weight: 175 lbs 01/30/2017 Blood Pressure 1: 136/78 Code: 8480-6 Heart Rate 1: 92 bpm Height: 5'2" SpO2: 96% Temperature: 37.4 (C) / 99.3 (F) Weight: 01/02/2017 Blood Pressure 1: 146/66 Code: 8480-6 BMI: 31.8 Code: 37914-1 Heart Rate 1: 81 bpm Height: 5'2" SpO2: 98% Weight: 174 lbs 12/29/2016 Blood Pressure 1: 140/78 Code: 8480-6 BMI: 31.8 Code: 23844-2 Heart Rate 1: 88 bpm Height: 5'2" SpO2: 97% Weight: 174 lbs 03/24/2016 Blood Pressure 1: 132/88 Code: 8480-6 BMI: 31.6 Code: 60225-8 Heart Rate 1: 91 bpm Height: 5'2" SpO2: 99% Weight: 173 lbs 09/25/2015 Blood Pressure 1: 112/60 Code: 8480-6 BMI: 31.3 Code: 85889-3 Heart Rate 1: 85 bpm Height: 5'2" SpO2: 97% Weight: 171 lbs 08/24/2015 Blood Pressure 1: 142/60 Code: 8480-6 BMI: 30.9 Code: 93572-9 Heart Rate 1: 94 bpm Height: 5'2" SpO2: 97% Weight: 169 lbs 06/12/2015 Blood Pressure 1: 122/64 Code: 8480-6 BMI: 31.1 Code: 87052-2 Heart Rate 1: 91 bpm Height: 5'2" SpO2: 97% Weight: 170 lbs 05/29/2015 Blood Pressure 1: 150/78 Code: 8480-6 BMI: 31.6 Code: 74049-7 Heart Rate 1: 79 bpm Height: 5'2" SpO2: 93% Weight: 173 lbs 03/26/2015 Blood Pressure 1: 124/82 Code: 8480-6 BMI: 31.8 Code: 68026-6 Heart Rate 1: 80 bpm Height: 5'2" Respiratory Rate: 20 bpm Weight: 174 lbs 03/17/2015 Blood Pressure 1: 128/78 Code: 8480-6 BMI: 31.8 Code: 28598-5 Heart Rate 1: 84 bpm Height: 5'2" Respiratory Rate: 20 bpm Weight: 174 lbs 10/15/2014 Blood Pressure 1: 130/64 Code: 8480-6 BMI: 32.6 Code: 35837-8 Heart Rate 1: 80 bpm Height: 5'2" Weight: 178 lbs 04/10/2014 Blood Pressure 1: 128/70 Code: 8480-6 BMI: 31.6 Code: 74382-5 Heart Rate 1: 80 bpm Height: 5'2" Weight: 173 lbs 02/17/2014 Blood Pressure 1: 108/58 Code: 8480-6 BMI: 32.0 Code: 51557-1 Heart Rate 1: 80 bpm Height: 5'2" Temperature: 37.4 (C) / 99.3 (F) Weight: 175 lbs 12/05/2013 Blood Pressure 1: 144/80 Code: 8480-6 Heart Rate 1: 72 bpm SpO2: 98% Temperature: 36.9 (C) / 98.4 (F) Weight: 177 lbs 09/25/2013 Blood Pressure 1: 136/82 Code: 8480-6 BMI: 32.7 Code: 07800-0 Heart Rate 1: 84 bpm Height: 5'2" Weight: 179 lbs 07/09/2013 Blood Pressure 1: 144/70 Code: 8480-6 BMI: 32.0 Code: 66940-9 Heart Rate 1: 76 bpm Height: 5'2" Weight: 175 lbs 2013 Blood Pressure 1: 128/72 Code: 8480-6 BMI: 31.8 Code: 05094-7 Heart Rate 1: 68 bpm Height: 5'2" Weight: 174 lbs 03/22/2013 Blood Pressure 1: 128/68 Code: 8480-6 BMI: 31.8 Code: 41497-8 Heart Rate 1: 68 bpm Height: 5'2" Weight: 174 lbs 02/28/2013 Blood Pressure 1: 128/72 Code: 8480-6 BMI: 31.5 Code: 92711-7 Heart Rate 1: 80 bpm Height: 5'2" Weight: 172 lbs 10/23/2012 Blood Pressure 1: 124/78 Code: 8480-6 Heart Rate 1: 68 bpm Temperature: 36.8 (C) / 98.2 (F) Weight: 172 lbs 03/08/2012 Blood Pressure 1: 124/68 Code: 8480-6 Heart Rate 1: 80 bpm Weight: 171 lbs 09/28/2011 Blood Pressure 1: 112/58 Code: 8480-6 BMI: 31.6 Code: 68568-3 Heart Rate 1: 76 bpm Height: 5'2" Respiratory Rate: 16 bpm Weight: 173 lbs 06/27/2011 Blood Pressure 1: 117/61 Code: 8480-6 BMI: 30.4 Code: 49969-6 Heart Rate 1: 86 bpm Height: 5'3" [...] 3 days per week 01/08/2018 works at [employer] Handling Stress often [...] 03/08/2012 Works 3 days per week at [employer], is retired osteoarthritis Frequency of Episodes unchanged [...] data Encounters Encounter Performer Location Codes Date ([id number]) 20907 EST. PATIENT, LEVEL IV Diagnosis: Essential (primary) hypertension[ICD10: I10] Diagnosis: Mild intermittent asthma, uncomplicated[ICD10: J45.20] Deneen Rosenberg MD, [facility] CPT-4: 20600 01/24/2019 [id number] EST. PATIENT, LEVEL III Diagnosis: Encounter for follow-up examination after completed treatment for conditions other than malignant neoplasm[ICD10: Z09] Diagnosis: Low back pain[ICD10: M54.5] [facility] CPT-4: 79749 12/03/[id number]) 10499 EST. PATIENT, LEVEL III Diagnosis: Postherpetic trigeminal neuralgia[ICD10: B02.22] [facility] CPT-4: 70551 11/19/2018 [id number] EST. PATIENT, LEVEL III Diagnosis: Chronic obstructive pulmonary disease with (acute) exacerbation[ICD10: J44.1] Diagnosis: Postherpetic trigeminal neuralgia[ICD10: B02.22] Deneen Rosenberg MD, [facility] CPT-4: 95741 11/07/2018 ([id number]) 88814 EST. PATIENT, LEVEL IV Diagnosis: Essential (primary) hypertension[ICD10: I10] Diagnosis: Chronic frontal sinusitis[ICD10: J32.1] Deneen Rosenberg MD, [facility] CPT-4: 27719 09/04/2018 ([id number]) 02489 EST. PATIENT, LEVEL III Diagnosis: Other retention of urine[ICD10: R33.8] Diagnosis: Mild intermittent asthma with (acute) exacerbation[ICD10: J45.21] Deneen Rosenberg MD, [facility] CPT-4: 44730 07/10/2018 ([id number]) 93097 EST. PATIENT, LEVEL IV Diagnosis: Primary hyperparathyroidism[ICD10: E21.0] Diagnosis: Personal history of other diseases of the musculoskeletal system and connective tissue[ICD10: Z87.39] Deneen Rosenberg MD, [facility] CPT-4: 77159 06/19/2018 69591 EST. PATIENT, LEVEL III Diagnosis: Low back pain[ICD10: M54.5] Diagnosis: Sciatica, right side[ICD10: M54.31] Chastity Rosenberg MD, [facility] CPT- 4: 34988 01/29/2018 28606 EST. PATIENT, LEVEL III Diagnosis: Mild intermittent asthma with (acute) exacerbation[ICD10: J45.21] Diagnosis: Cough[ICD10: R05] Diagnosis: Other allergic rhinitis[ICD10: J30.89] Chastity Rosenberg MD, [facility] CPT- 4: 92272 08/21/2017 ([id number]) 51750 EST. PATIENT, LEVEL IV Diagnosis: Mild intermittent asthma with (acute) exacerbation[ICD10: J45.21] Diagnosis: Essential (primary) hypertension[ICD10: I10] Diagnosis: Encounter for immunization[ICD10: Z23] Diagnosis: Sciatica, right side[ICD10: M54.31] Diagnosis: Low back pain[ICD10: M54.5] Deneen Rosenberg MD, [facility] CPT-4: 38698 07/18/2017 ([id number]) 99203 EST. PATIENT, LEVEL III Diagnosis: Cough[ICD10: R05] Diagnosis: Other allergic rhinitis[ICD10: J30.89] Lalitha Rosenberg MD, [facility] CPT-4: 00592 06/30/2017 49294 EST. PATIENT, LEVEL III Diagnosis: Low back pain[ICD10: M54.5] Diagnosis: Dizziness and giddiness[ICD10: R42] Chastity Rosenberg MD, [facility] CPT- 4: 61133 05/08/2017 ([id number]) 22021 EST. PATIENT, LEVEL III Diagnosis: Essential (primary) hypertension[ICD10: I10] Diagnosis: Low back pain[ICD10: M54.5] Diagnosis: Sciatica, right side[ICD10: M54.31] Deneen Rosenberg MD, [facility] CPT- 4: 21489 02/14/2017 ([id number]) 10794 EST. PATIENT, LEVEL III Diagnosis: Essential (primary) hypertension[ICD10: I10] Deneen Rosenberg MD, [facility] CPT-4: 95297 01/31/2017 ([id number]) 93756 EST. PATIENT, LEVEL III Diagnosis: Cough[ICD10: R05] Diagnosis: Acute recurrent maxillary sinusitis[ICD10: J01.01] Lalitha Rosenberg MD, [facility] CPT-4: 82167 01/30/2017 ([id number]) 62453 EST. PATIENT, LEVEL III Diagnosis: Essential (primary) hypertension[ICD10: I10] Diagnosis: Mild intermittent asthma with (acute) exacerbation[ICD10: J45.21] Diagnosis: Tinea corporis[ICD10: B35.4] Deneen Rosenberg MD, [facility] CPT-4: 12975 12/29/2016 ([id number]) Miscellaneous no charge Diagnosis: Epistaxis[ICD10: R04.0] Chastity Rosenberg MD, [facility] CPT-4: 24703 04/01/2016 ([id number]) 23565 EST. PATIENT, LEVEL IV Diagnosis: Essential (primary) hypertension[ICD10: I10] Diagnosis: Mild intermittent asthma, uncomplicated[ICD10: J45.20] Diagnosis: Insomnia, unspecified[ICD10: G47.00] Lalitha Rosenberg MD, [facility] CPT-4: 00206 03/24/2016 77089 EST. PATIENT, LEVEL III Diagnosis: Mild intermittent asthma with (acute) exacerbation[ICD10: J45.21] Diagnosis: Epistaxis[ICD10: R04.0] Chastity Rosenberg MD, [facility] CPT-4: 21034 09/25/2015 ([id number]) 81965 EST. PATIENT, LEVEL III Diagnosis: Acute recurrent maxillary sinusitis[ICD10: J01.01] Diagnosis: Allergic rhinitis due to pollen[ICD10: J30.1] Lalitha Rosenberg MD, [facility] CPT-4: 71124 08/24/2015 ([id number]) 98688 EST. PATIENT, LEVEL IV Diagnosis: Well woman exam[ICD9: V70.0] Diagnosis: Encounter for screening for malignant neoplasm of vagina[ICD10: Z12.72] Diagnosis: Pelvic and perineal pain[ICD10: R10.2] Lalitha Rosenberg MD, [facility] CPT-4: 95848 06/12/2015 ([id number]) 34483 EST. PATIENT, LEVEL III Diagnosis: Tinea corporis[ICD9: 110.5] Diagnosis: ACUTE MAXILLARY SINUSITIS[ICD9: 461.0] Lalitha Rosenberg MD, [facility] CPT-4: 36912 05/29/2015 ([id number]) 87552 EST. PATIENT, LEVEL IV Diagnosis: Skin tag[ICD9: 701.9] Diagnosis: Seborrheic keratoses[ICD9: 702.19] Diagnosis: Comedone[ICD9: 706.1] Diagnosis: IMPACTED CERUMEN[ICD9: 380.4] Rosemarie Rosenberg MD, [facility] CPT-4: 98308 03/26/2015 ([id number]) 96516 EST. PATIENT, LEVEL IV Diagnosis: ESSENTIAL HYPERTENSION[ICD9: 401.9] Diagnosis: HYPERLIPIDEMIA[ICD9: 272.4] Diagnosis: Fatigue[ICD9: 780.79] Diagnosis: INSECT BITE HIP/LEG[ICD9: 916.4] Rosemarie Rosenberg MD, [facility] CPT-4: 30029 03/17/2015 ([id number]) 71647 EST. PATIENT, LEVEL IV Diagnosis: Acute bronchitis[ICD9: 466.0] Diagnosis: MALAISE AND FATIGUE[ICD9: 780.79] Diagnosis: COUGH[ICD9: 786.2] Diagnosis: CHRONIC OBSTRUCTIVE ASTHMA WITH EXACERBATION[ICD9: 493.22] Deneen Rosenberg MD [facility] CPT-4: 64210 10/15/2014 ([id number]) 61031 EST. PATIENT, LEVEL III Diagnosis: Acute anterior epistaxis[ICD9: 784.7] Diagnosis: ESSENTIAL HYPERTENSION[ICD9: 401.9] Lalitha Rosenberg MD [facility] CPT-4: 47511 04/10/2014 ([id number]) 54610 EST. PATIENT, LEVEL III Diagnosis: Acute bronchitis[ICD9: 466.0] Diagnosis: COUGH[ICD9: 786.2] Diagnosis: Nasal congestion[ICD9: 478.19] Deneen Rosenberg MD [facility] CPT-4: 04090 02/17/2014 ([id number]) 01556 EST. PATIENT, LEVEL III Diagnosis: ACUTE SINUSITIS[ICD9: 461.9] Lalitha Rosenberg MD [facility] CPT-4: 52970 12/05/2013 ([id number]) 51204 EST. PATIENT, LEVEL IV Diagnosis: HYPERLIPIDEMIA[ICD9: 272.4] Diagnosis: CHRONIC OBSTRUCTIVE ASTHMA[ICD9: 493.20] Diagnosis: SLEEP APNEA NOS[ICD9: 780.57] Diagnosis: GENERAL OSTEOARTHROSIS-MULT[ICD9: 715.09] Deneen Rosenberg MD, [facility] CPT-4: 23510 09/25/2013 ([id number]) 75671 EST. PATIENT, LEVEL III Diagnosis: CHRONIC OBSTRUCTIVE ASTHMA[ICD9: 493.20] Deneen Rosenberg MD [facility] CPT-4: 79270 07/09/2013 ([id number]) Miscellaneous no charge Diagnosis: CHRONIC OBSTRUCTIVE ASTHMA[ICD9: 493.20] Deneen Rosenberg MD [facility] CPT-4: 57710 06/11/2013 ([id number]) 25201 EST. PATIENT, LEVEL IV Diagnosis: CHRONIC OBSTRUCTIVE ASTHMA[ICD9: 493.20] Diagnosis: Sleep apnea[ICD9: 780.57] Deneen Rosenberg MD, [facility] CPT-4: 91837 2013 ([id number]) 41134 EST. PATIENT, LEVEL IV Diagnosis: CHRONIC OBSTRUCTIVE ASTHMA[ICD9: 493.20] Diagnosis: OSTEOARTH NOS-UNSPEC[ICD9: 715.90] Diagnosis: MALAISE AND FATIGUE[ICD9: 780.79] Deneen Rosenberg MD, [facility] CPT- 4: 99446 03/22/2013 ([id number]) 26640 EST. PATIENT, LEVEL IV Diagnosis: HYPERLIPIDEMIA[ICD9: 272.4] Diagnosis: OSTEOARTH NOS-UNSPEC[ICD9: 715.90] Diagnosis: MALAISE AND FATIGUE[ICD9: 780.79] Deneen Rosenberg MD, [facility] CPT- 4: 26724 02/28/2013 ([id number]) 82890 EST. PATIENT, LEVEL III Diagnosis: ACUTE SINUSITIS[ICD9: 461.9] Diagnosis: COUGH[ICD9: 786.2] Lalitha Rosenberg MD, [facility] CPT-4: 50554 10/23/2012 ([id number]) 87683 EST. PATIENT, LEVEL IV Diagnosis: ESSENTIAL HYPERTENSION[SNOMED: 99633306] Diagnosis: HYPERLIPIDEMIA[ICD9: 272.4] Diagnosis: CHRONIC OBSTRUCTIVE ASTHMA[ICD9: 493.20] Deneen Rosenberg MD [facility] CPT-4: 48836 03/08/2012 ([id number]) 96864 EST. PATIENT, LEVEL IV Diagnosis: CHRONIC OBSTRUCTIVE ASTHMA[ICD9: 493.20] Diagnosis: Primary generalized (osteo)arthritis[ICD9: 715.09] Diagnosis: PAIN IN LIMB[ICD9: 729.5] [facility] CPT-4: 24109 09/28/2011 81736 EST. PATIENT, LEVEL IV Diagnosis: ACUTE SINUSITIS[ICD9: 461.9] Diagnosis: Asthma[ICD9: 493.90] Diagnosis: Osteoarthritis[ICD9: 715.90] Diagnosis: Hyperlipidemia[ICD9: 272.4] Lalitha Rosenberg MD, [facility] CPT-4: 34206 06/27/2011 Plan of Care Planned Activity Notes [...] and proair. 01/24/2019 Appointment: Deneen Rosenberg WPtel: [facility] [place] (15 min) Moderate 01/24/2019 Patient Education: Patient [...] or concerns. 12/03/2018 Appointment: Chastity Chavira WPtel: [facility] (30 min) Complex 12/03/2018 Patient Education: Patient Medication Summary Completed 12/03/2018 Patient Education: Back Pain Completed 12/03/2018 Visit Plan: Post-herpetic neuralgia - pt to stop acyclovir - finish dose of steroid - monitor symptoms, call if symptoms return. 11/19/2018 Appointment: Deneen Rosenberg WPtel: [facility] [id number] (15 min) Moderate 11/19/2018 Patient Education: Patient Medication Summary Completed 11/19/2018 Visit Plan: Trigeminal Neuralgia - due to shingles - rx for prednisone taper and valcyvlovir 1 gram bid. COPD - rx for albuterol and proair. 11/07/2018 Appointment: Deneen Rosenberg WPtel: [facility] [id number] (15 min) Moderate 11/07/2018 Patient Education: Patient [...] days. 09/04/2018 Appointment: Deneen Rosenberg WPtel: [phone] [id number] (15 min) Moderate 09/04/2018 Patient Education: Patient Medication Summary Completed 09/04/2018 Patient Education: Hypertension Completed 09/04/2018 Visit Plan: Asthma - chronic problem for this patient. We have reviewed chronic treatment strategy, symptom control, and plans for acute exacerbations. No changes today to the current treatment plan as the patient is stable, monitor for acute changes 07/10/2018 Appointment: Deneen Rosenberg WPtel: [phone] [id number] (15 min) Moderate 07/10/2018 Patient Education: Patient Medication Summary Completed 07/10/2018 Appointment: Injection 06/28/2018 Patient Education: Patient Medication Summary Completed 06/28/2018 Visit Plan: Elevated PTH - parathyroid nuclear medicine uptake at [facility] in [place] - 06/26, , are open Osteopenia - discussed the pt's dx and the fact that insurance will not pay for prolia due to lack of dx of Osteoporosis. 06/19/2018 Appointment: Deneen Rosenberg WPtel: [phone] [id number] (15 min) Moderate 06/19/2018 Patient Education: Patient [...] of injection. 01/29/2018 Appointment: [facility]ira [facility]el[phone] ([facility] min) Complex 01/29/2018 Patient Education: Patient [...] care surrogate. 01/08/2018 Appointment: Lalith[facility] Alcala [facility]Ptel[phone] [id number] [facility] - Annual Wellness Visit 01/08/2018 Patient Education: [...] changes 07/18/2017 Appointment: Deneen Rosenberg [facility]el[phone] [place] (15 min) Moderate 07/18/2017 Patient Education: Patient [...] symptoms persist 06/30/2017 Appointment: [facility]cal[phone] [place] (15 min) Moderate 06/30/2017 Patient Education: Patient [...] or concerns. 05/08/2017 Appointment: Chastity Chavira WPtel: [facility]5 [facility] (30 min) Complex 05/08/2017 Patient Education: Patient [...] they worsen. 02/14/2017 Appointment: Deneen Rosenberg WPtel: [facility]0 [facility] (15 min) Moderate 02/14/2017 Patient Education: Patient Medication Summary Completed 02/14/2017 Care Plan: Referral Order SNOMED-CT : [id number] Pending 02/14/2017 Appointment: Deneen Rosenberg WPtel: [facility]7 [facility] (15 min) Moderate 02/01/2017 Visit Plan: Hypertension - well controlled - continue with current medications, continue with no added salt diet. Pt has been encouraged to exercise daily. The pt has been advised to call the office if there are any acute concerns about change in blood pressure readings at home. Cough - improved from yesterday. 01/31/2017 Appointment: Deneen Rosenberg WPtel: [phone] [facility] (15 min) Moderate 01/31/2017 Patient Education: Patient Medication Summary Completed 01/31/2017 Patient Education: Obesity Completed 01/31/2017 Patient Education: Hypertension Completed 01/31/2017 Visit Plan: Sinusitis - Pt has acute infection - pain in face, maxillary region, Pt informed to use decongestant, RX given to patient, sinus rinses also recommended. Call if symptoms do not show improvement. 01/30/2017 Appointment: Lalitha Alcala WPtel: [phone] [phone] (15 min) Moderate 01/30/2017 Patient Education: Patient [...] Ketoconazole shampoo. 12/29/2016 Appointment: Deneen Rosenberg [facility]Ptel: [facility] [place] [place] (15 min) Moderate 12/29/2016 Patient Education: Patient Medication Summary Completed 12/29/2016 Patient Education: Obesity Completed 12/29/2016 Patient Education: Hypertension Completed 12/29/2016 Patient Education: Patient Medication Summary Completed 12/26/2016 Appointment: Injection 07/13/2016 Patient Education: Patient Medication Summary Completed 07/13/2016 Visit Plan: Pt went to ED from office, stating she does not think she will be able to get to her ENT in [place]. 04/01/2016 Appointment: [facility]cal[phone] (30 min) Complex 04/01/2016 Patient Education: Patient [...] traveling 03/24/2016 Appointment: [facility]cal[phone] (30 min) Complex 03/24/2016 Patient Education: Patient [...] Care Plan: COMPLETE CBC AUTOMATED LOINC : 55619-7 Ordered 03/17/2015 Visit Plan: Asthma EXACERBATION - [...] worsen. 10/15/2014 Appointment: Deneen Rosenberg WPtel: [phone] [facility] Sick 10/15/2014 Patient Education: Patient Medication Summary Completed [...] show improvement. 12/05/2013 Appointment: Lalitha Alcala WPtel: [facility]5 [phone] [facility] 12/05/2013 Patient Education: Patient Medication Summary Completed 12/05/2013 Appointment: Deneen Rosenberg WPtel: [facility]5 [facility] Follow up 10/01/2013 Visit Plan: Hyperlipidemia [...] desires to consider cpap. 09/25/2013 Appointment: Deneen Rosebnerg WPtel: [phone] [facility] Follow up 09/25/2013 Patient Education: Patient Medication Summary Completed 09/25/2013 Visit Plan: Asthma - chronic problem for this patient. We have reviewed chronic treatment strategy, symptom control, and plans for acute exacerbations. No changes today to the current treatment plan as the patient is stable, monitor for acute changes 07/09/2013 Appointment: Deneen Rosenberg WPtel: [facility]4 [facility] Follow up 07/09/2013 Patient Education: Patient Medication Summary Completed 07/09/2013 Appointment: Deneen Rosenberg WPtel: [facility]7 [facility] Follow up 07/01/2013 Appointment: Lalitha Alcala WPtel: [facility]7 [phone] Lab Draw 06/11/2013 Patient Education: Patient Medication [...] noctural hypoxemia. 2013 Appointment: Deneen Rosenberg WPtel: [phone] [facility] Other 2013 Patient Education: Patient Medication Summary [...] TUNNEL ENTRAPMENT. 03/22/2013 Appointment: Deneen Rosenberg WPtel: [facility]3 [facility] Other 03/22/2013 Patient Education: Patient Medication [...] check labs. 02/28/2013 Appointment: Deneen Rosenberg WPtel: [address] [place], [place] [id number] Follow up 02/28/2013 Patient Education: Patient Medication Summary Completed 02/28/2013 Visit Plan: Sinusitis - Pt has acute infection - pain in face, maxillary region, Pt informed to use decongestant, RX given to patient, sinus rinses also recommended. Call if symptoms do not show improvement. Rocephin injection today in the office 10/23/2012 Appointment: Lalitha Alcala WPtel: [phone] S[facility] 10/23/2012 Patient Education: Patient Medication Summary Completed 10/23/2012 Appointment: Deneen Rosenberg WPtel: [phone] [place] [place] Lab Draw 03/14/2012 Patient Education: Patient [...] to medications. 03/08/2012 Appointment: Deneen Rosenberg WPtel: [facility]5 [facility] Other 03/08/2012 Patient Education: Patient Medication Summary Completed 03/08/2012 Patient Education: High Blood Pressure: Essential Hypertension Completed 03/08/2012 Visit Plan: Asthma- controlled by the current medication.. No change in the treatment at this time. Osteoarthritis- pt has been instructed to use celebrex twice daily on the days that she is working. 09/28/2011 Appointment: Deneen Rosenberg WPtel: [facility]5 [facility] [place] [place] Follow up 09/28/2011 Patient Education: Patient Medication Summary Completed 09/28/2011 Appointment: Deneen Rosenberg WPtel: [facility] [place] [place] Injection 07/05/2011 Patient Education: Patient Medication Summary Completed 07/05/2011 Appointment: Deneen Rosenberg WPtel:[phone] [facility] [place] [place] Lab Draw 06/28/2011 Patient Education: Patient [...] as indicated. 06/27/2011 Appointment: Lalith[facility] Alcala [facility]el[phone] [place] Other 06/27/2011 Patient Education: Patient Medication Summary Completed 06/27/2011 Care Plan: CBC (COMPLETE CBC W/AUTO DIFF WBC) LOINC : 89045-6 Ordered 06/27/2011 Care Plan: CHEM 14 (COMPREHEN METABOLIC PANEL) LOINC : 23074-6 Ordered 06/27/2011 Care Plan: LIPID GRP (LIPID PANEL) LOINC : 30700-1 Ordered 06/27/2011 Care Plan: TSH (ASSAY THYROID [...] PTH - parathyroid nuclear medicine uptake at [facility] in [place] - 06/26, 12 , 13 are open [...] able to get to her ENT in [place]. . Sinusitis - Pt has acute infection [...]
--- OUTSIDE RECORDS SUMMARY | 2019-04-16 05:01 | XMS REPORT | CCD ---
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) and also during college she was exposed to smoke during her work in college 2013 Marital status Unknown Since 200406/26/2011 Number of children Unknown 3 2 daughters, 1 son 06/26/[address]: 686910960 Never drinks alcohol 06/26/2011 Has the patient [...] PENICILLINS Unknown 06/26/2011 No Inactive Date Active [id number] REDUCTASE INHIBITORS Unknown 06/26/2011 No Inactive Date [...] 06/11/2015 Unknown Pelvic and perineal pain ICD-9: [id number] ICD-10: R10.2 Active 06/11/2015 Unknown Well woman [...] 06/11/2015 Active Pelvic and perineal pain ICD-9: [id number] ICD-10: R10.2 06/11/2015 Active Well woman exam [...] Start Date Stop Date Status Fill Instructions valacyclovir 1 gram tablet RxNorm: 421263 1 Tablet(s) PO BID 03/05/2019 05/03/2019 Active Celebrex 200 mg capsule RxNorm: 816622 TAKE 1 CAPSULE BY MOUTH TWO TIMES DAILY 02/01/2019 10/28/2019 Active - Ref: [id number] paroxetine 20 mg tablet RxNorm: 9941338 TAKE 1/2 TABLET BY MOUTH EVERY DAY 02/01/2019 10/28/2019 Active lidocaine 4 % topical patch RxNorm: 7577612 1 Patch TOP UD 12/03/2018 No Stop Date Active if too expensive get OTC salon [facility] amlodipine 5 mg tablet RxNorm: 842205 1 Tablet(s) PO daily 11/09/2018 06/06/2019 Active ProAir HFA 90 mcg/actuation aerosol inhaler RxNorm: 7777261 1-2 INH QID as needed 11/07/2018 03/06/2019 Active prednisone 10 mg tablet RxNorm: 858900 1 Tablet(s) PO UD 2tabs bid x3days, then 2tabs AM and 1tabPM x3days, then 1tab BID x 3days then 1tab AM x 3 days then stop 11/07/2018 No Stop Date Active albuterol sulfate 1.25 mg/3 mL solution for nebulization RxNorm: 997539 3 Milliliter(s) INH Q4 PRN as needed dyspnea from COPD 11/07/2018 11/01/2019 Active valacyclovir 1 gram tablet RxNorm: 831857 1 Tablet(s) PO BID 11/07/2018 11/20/2018 Inactive gemfibrozil 600 mg tablet RxNorm: 473644 1 TABLET(S) PO TAKE ONE TABLET BY MOUTH TWICE DAILY 10/15/2018 07/11/2019 Active Diflucan 150 mg tablet RxNorm: 748188 1 Tablet(s) PO daily 09/04/2018 09/13/2018 Inactive amlodipine 2.5 mg tablet RxNorm: 915292 1 Tablet(s) PO daily 09/04/2018 11/08/2018 Inactive albuterol sulfate 1.25 mg/3 mL solution for nebulization RxNorm: 618563 3 Milliliter(s) INH Q4 PRN as needed dyspnea 07/10/2018 11/06/2018 Inactive Diflucan 150 mg tablet RxNorm: 901683 1 Tablet(s) PO daily x 3 days then may repeat in 10 days if symptoms are not resolved in throat 06/19/2018 06/30/2018 Inactive Keflex 500 mg capsule RxNorm: 162954 1 Capsule(s) PO TID 06/15/2018 06/21/2018 Inactive Keflex 500 mg capsule RxNorm: 413126 1 Capsule(s) PO TID 06/15/2018 06/14/2018 Inactive paroxetine 20 mg tablet RxNorm: 5584939 TAKE 1/2 TABLET BY MOUTH EVERY DAY 05/09/2018 01/31/2019 Inactive prednisone 20 mg tablet RxNorm: 470061 2 Tablet(s) PO daily 03/13/2018 03/22/2018 Inactive Celebrex 200 mg capsule RxNorm: 773735 TAKE 1 CAPSULE BY MOUTH TWO TIMES DAILY 03/08/2018 09/03/2018 Inactive - First Attempt Ref: [id number] Singulair 10 mg tablet RxNorm: 890726 Tablet(s) TAKE 1 TABLET BY MOUTH DAILY 02/27/2018 02/21/2019 Inactive Kenalog 40 mg/mL suspension for injection RxNorm: 0392792 1 Milliliter(s) Inj 02/02/2018 02/02/2018 Inactive Singulair 10 mg tablet RxNorm: 764959 TAKE 1 TABLET BY MOUTH DAILY 01/05/2018 02/26/2018 Inactive - First Attempt Ref: [id number] pantoprazole 40 mg tablet,delayed release RxNorm: 279469 Tablet(s) TAKE 1 TABLET DAILY 12/19/2017 01/07/2018 Inactive gemfibrozil 600 mg tablet RxNorm: 601543 1 TABLET(S) PO TAKE ONE TABLET BY MOUTH TWICE DAILY 12/05/2017 08/31/2018 Inactive albuterol sulfate 1.25 mg/3 mL solution for nebulization RxNorm: 532230 3 Milliliter(s) INH Q4 PRN as needed dyspnea 11/22/2017 05/20/2018 Inactive albuterol sulfate 1.25 mg/3 mL solution for nebulization RxNorm: 111683 3 Milliliter(s) INH Q4 PRN as needed dyspnea 11/02/2017 11/21/2017 Inactive methylprednisolone 4 mg tablets in a dose pack RxNorm: 143762 1 Tablet(s) PO UD 09/01/2017 No Stop Date Active albuterol sulfate 1.25 mg/3 mL solution for nebulization RxNorm: 479077 3 Milliliter(s) INH Q4 PRN as needed dyspnea 09/01/2017 11/01/2017 Inactive Keflex 500 mg capsule RxNorm: 779924 1 Capsule(s) PO TID 09/01/2017 09/10/2017 Inactive methylprednisolone 4 mg tablets in a dose pack RxNorm: 304806 1 Tablet(s) PO UD To start tomorrow 08/21/2017 08/31/2017 Inactive Kenalog 40 mg/mL suspension for injection RxNorm: 7855159 Milliliter(s) Inj 08/21/2017 08/21/2017 Inactive Levaquin 500 mg tablet RxNorm: 924815 1 Tablet(s) PO daily 08/21/2017 08/27/2017 Inactive Ativan 0.5 mg tablet RxNorm: 461138 1 Tablet(s) PO 1 hour before MRI, may repeat dose x1 07/21/2017 07/20/2017 Inactive Ativan 0.5 mg tablet RxNorm: 541142 1 Tablet(s) PO 1 hour before MRI, may repeat dose x1 07/21/2017 07/21/2017 Inactive ProAir HFA 90 mcg/actuation aerosol inhaler RxNorm: 6459316 1-2 INH QID as needed 07/18/2017 11/14/2017 Inactive Kenalog 40 mg/mL suspension for injection RxNorm: 6151750 Milliliter(s) Inj 06/30/2017 06/30/2017 Inactive albuterol sulfate 1.25 mg/3 mL solution for nebulization RxNorm: 142816 3 Milliliter(s) INH Q4 PRN as needed dyspnea 06/07/2017 08/31/2017 Inactive Keflex 500 mg capsule RxNorm: 647399 1 Capsule(s) PO TID 06/02/2017 06/01/2017 Inactive Keflex 500 mg capsule RxNorm: 564807 1 Capsule(s) PO TID 06/02/2017 06/08/2017 Inactive methylprednisolone 4 mg tablets in a dose pack RxNorm: 142501 1 Tablet(s) PO UD To start tomorrow 05/10/2017 08/20/2017 Inactive Kenalog 40 mg/mL suspension for injection RxNorm: 7731649 Milliliter(s) Inj 05/09/2017 05/09/2017 Inactive Voltaren 1 % topical gel RxNorm: 177680 1 Application TOP TID as needed 05/08/2017 No Stop Date Active paroxetine 20 mg tablet RxNorm: 1247639 TAKE 1/2 TABLET BY MOUTH EVERY DAY 05/03/2017 04/27/2018 Inactive gemfibrozil 600 mg tablet RxNorm: 252964 1 TABLET(S) PO TAKE ONE TABLET BY MOUTH TWICE DAILY 02/21/2017 11/17/2017 Inactive Celebrex 200 mg capsule RxNorm: 205275 1 Capsule(s) PO BID 02/08/2017 02/02/2018 Inactive Celebrex 200 mg capsule RxNorm: 371777 1 Capsule(s) PO BID TAKE 1 CAPSULE TWICE DAILY 02/02/2017 02/07/2017 Inactive ketoconazole 2 % shampoo RxNorm: 538620 1 Application TOP daily x 1 week then weekly as needed for rash 01/31/2017 No Stop Date Active DC topical cream ProAir RespiClick 90 mcg/actuation breath activated RxNorm: 2903071 1 -2 INH Q4H as needed ASTHMA 01/31/2017 07/17/2017 Inactive Kenalog 40 mg/mL suspension for injection RxNorm: 4912129 1.5 Milliliter(s) Inj 01/30/2017 01/30/2017 Inactive Levaquin 500 mg tablet RxNorm: 830458 1 Tablet(s) PO daily 01/30/2017 02/05/2017 Inactive Celebrex 200 mg capsule RxNorm: 154299 1 Capsule(s) PO BID TAKE 1 CAPSULE TWICE DAILY 01/30/2017 02/01/2017 Inactive methylprednisolone 4 mg tablets in a dose pack RxNorm: 527789 1 Tablet(s) PO UD 01/30/2017 05/08/2017 Inactive ketoconazole 2 % shampoo RxNorm: 498421 1 Application TOP daily x 1 week then weekly as needed for rash 12/30/2016 01/30/2017 Inactive DC topical cream aspirin 81 mg tablet,delayed release RxNorm: 417379 1 Tablet(s) PO daily 12/29/2016 No Stop Date Active ketoconazole 2 % topical cream RxNorm: 630015 1 Application TOP daily x 1 week then weekly as needed for rash 12/29/2016 12/29/2016 Inactive Singulair 10 mg tablet RxNorm: 503613 Tablet(s) TAKE 1 TABLET DAILY 11/30/2016 11/23/2017 Inactive pantoprazole 40 mg tablet,delayed release RxNorm: 275580 Tablet(s) TAKE 1 TABLET DAILY 11/30/2016 11/23/2017 Inactive paroxetine 20 mg tablet RxNorm: 5576783 Tablet(s) TAKE ONE-HALF TABLET BY MOUTH EVERY DAY 11/25/2016 05/02/2017 Inactive paroxetine 20 mg tablet RxNorm: 8300286 Tablet(s) TAKE ONE-HALF TABLET BY MOUTH EVERY DAY 11/17/2016 11/24/2016 Inactive Levaquin 500 mg tablet RxNorm: 103329 1 Tablet(s) PO daily 10/11/2016 11/24/2016 Inactive pantoprazole 40 mg tablet,delayed release RxNorm: 185883 TAKE 1 TABLET DAILY 08/22/2016 11/29/2016 Inactive gemfibrozil 600 mg tablet RxNorm: 937554 1 TABLET(S) PO TAKE ONE TABLET BY MOUTH TWICE DAILY 05/06/2016 01/30/2017 Inactive temazepam 7.5 mg capsule RxNorm: 519367 1 Capsule(s) PO HS PRN 03/24/2016 No Stop Date Active Singulair 10 mg tablet RxNorm: 166384 Tablet(s) TAKE 1 TABLET DAILY 03/07/2016 11/29/2016 Inactive Singulair 10 mg tablet RxNorm: 335709 Tablet(s) TAKE 1 TABLET DAILY 03/07/2016 03/06/2016 Inactive pantoprazole 40 mg tablet,delayed release RxNorm: 939053 TAKE 1 TABLET DAILY 02/15/2016 08/12/2016 Inactive Celebrex 200 mg capsule RxNorm: 935307 1 Capsule(s) PO BID TAKE 1 CAPSULE TWICE DAILY 01/25/2016 01/17/2017 Inactive gemfibrozil 600 mg tablet RxNorm: 315498 1 TABLET(S) PO TAKE ONE TABLET BY MOUTH TWICE DAILY 11/10/2015 05/05/2016 Inactive Patient requests 90 days supply Levaquin 500 mg tablet RxNorm: 033519 1 Tablet(s) PO daily 09/29/2015 10/08/2015 Inactive albuterol sulfate 1.25 mg/3 mL solution for nebulization RxNorm: 196827 3 Milliliter(s) INH PRN as needed dyspnea 09/25/2015 06/06/2017 Inactive Levaquin 500 mg tablet RxNorm: 301450 1 Tablet(s) PO daily 08/24/2015 09/02/2015 Inactive albuterol sulfate HFA 90 mcg/actuation aerosol inhaler RxNorm: 8703709 1-2 Puff(s) INH Q4 PRN as needed 08/24/2015 01/30/2017 Inactive sample and rX provided albuterol sulfate HFA 90 mcg/actuation aerosol inhaler RxNorm: 1086089 1-2 Puff(s) INH Q4 PRN as needed 08/24/2015 08/23/2015 Inactive sample and rX provided paroxetine 20 mg tablet RxNorm: 9177746 Tablet(s) TAKE ONE-HALF TABLET BY MOUTH EVERY DAY 08/21/2015 03/17/2016 Inactive pantoprazole 40 mg tablet,delayed release RxNorm: 286933 1 Tablet(s) PO daily 07/27/2015 07/26/2015 Inactive pantoprazole 40 mg tablet,delayed release RxNorm: 218897 1 Tablet(s) PO daily 07/27/2015 01/22/2016 Inactive gemfibrozil 600 mg tablet RxNorm: 744469 1 TABLET(S) PO TAKE ONE TABLET BY MOUTH TWICE DAILY 07/10/2015 11/09/2015 Inactive nystatin (bulk) 100 million unit powder RxNorm: 1 APPLICATION TOP TID 06/25/2015 07/15/2015 Inactive Kenalog 40 mg/mL suspension for injection RxNorm: 3363730 Milliliter(s) Inj 05/29/2015 05/29/2015 Inactive Keflex 500 mg capsule RxNorm: 987767 1 Capsule(s) PO TID 05/29/2015 06/07/2015 Inactive nystatin (bulk) 100 million unit powder RxNorm: 1 Application TOP TID 05/29/2015 06/18/2015 Inactive ceftriaxone 500 mg solution for injection RxNorm: 4923011 Inj 05/29/2015 05/29/2015 Inactive Fioricet 50 mg-325 mg-40 mg tablet RxNorm: 729865 1 Tablet(s) PO Q6 PRN as needed 04/20/2015 07/18/2015 Inactive Bactroban 2 % topical ointment RxNorm: 834574 1 TOP BID 03/26/2015 No Stop Date Active Align 4 mg capsule RxNorm: 021110 1 Capsule(s) PO daily 03/19/2015 12/28/2016 Inactive Singulair 10 mg tablet RxNorm: 443801 TAKE 1 TABLET DAILY 03/02/2015 02/24/2016 Inactive Bactroban 2 % topical ointment RxNorm: 293632 1 APPLICATION TOP BID 12/02/2014 12/11/2014 Inactive right nare ceftriaxone 500 mg solution for injection RxNorm: 354725 Inj 10/15/2014 10/15/2014 Inactive Keflex 500 mg capsule RxNorm: 685686 1 Capsule(s) PO BID 10/15/2014 10/28/2014 Inactive Kenalog 40 mg/mL suspension for injection RxNorm: 0692565 Milliliter(s) Inj 10/15/2014 10/15/2014 Inactive prednisone 20 mg tablet RxNorm: 064911 1 Tablet(s) PO daily 10/15/2014 10/24/2014 Inactive Tudorza Pressair 400 mcg/actuation breath activated RxNorm: 8021718 1 Puff(s) INH BID 10/15/2014 11/13/2014 Inactive gemfibrozil 600 mg tablet RxNorm: 233967 1 Tablet(s) PO TAKE ONE TABLET BY MOUTH TWICE DAILY 09/29/2014 06/25/2015 Inactive Celebrex 200 mg capsule RxNorm: 646437 1 Capsule(s) PO BID TAKE 1 CAPSULE TWICE DAILY 07/31/2014 07/25/2015 Inactive paroxetine 20 mg tablet RxNorm: 669765 TAKE ONE-HALF TABLET BY MOUTH EVERY DAY 07/15/2014 02/09/2015 Inactive Bactroban 2 % topical ointment RxNorm: 320851 1 Application TOP BID 04/10/2014 04/14/2014 Inactive right nare Singulair 10 mg tablet RxNorm: 522367 1 Tablet(s) PO daily TAKE 1 TABLET DAILY 02/27/2014 02/21/2015 Inactive Celebrex 200 mg capsule RxNorm: 843856 1 Capsule(s) PO BID TAKE 1 CAPSULE TWICE DAILY 02/27/2014 07/30/2014 Inactive ciprofloxacin 500 mg tablet RxNorm: 514614 1 Tablet(s) PO BID 02/17/2014 02/26/2014 Inactive prednisone 20 mg tablet RxNorm: 665663 1 Tablet(s) PO daily 02/17/2014 02/21/2014 Inactive Fioricet 50 mg-325 mg-40 mg tablet RxNorm: 181504 1 Tablet(s) PO Q6 PRN 02/17/2014 05/16/2014 Inactive Kenalog 40 mg/mL suspension for injection RxNorm: 0021259 Milliliter(s) Inj 02/17/2014 02/17/2014 Inactive Bactrim 400 mg-80 mg tablet RxNorm: 645831 1 Tablet(s) PO BID 12/25/2013 12/24/2013 Inactive Omnicef 300 mg capsule RxNorm: 869640 1 Capsule(s) PO BID 12/25/2013 01/03/2014 Inactive please dc the bactrim order. pt states she is allergic. Bactrim 400 mg-80 mg tablet RxNorm: 262993 1 Tablet(s) PO BID 12/25/2013 12/25/2013 Inactive gemfibrozil 600 mg tablet RxNorm: 426186 Tablet(s) PO TAKE ONE TABLET BY MOUTH TWICE DAILY 12/12/2013 09/28/2014 Inactive Rocephin 500 mg solution for injection RxNorm: 864549 Inj 12/05/2013 12/05/2013 Inactive Bactroban 2 % topical ointment RxNorm: 711443 1 Application TOP BID right nare 12/05/2013 12/11/2013 Inactive Keflex 500 mg capsule RxNorm: 556555 1 Capsule(s) PO BID 12/05/2013 12/11/2013 Inactive paroxetine 20 mg tablet RxNorm: 915221 Tablet(s) PO TAKE ONE-HALF TABLET BY MOUTH EVERY DAY 07/15/2013 07/14/2014 Inactive Influenza Virus Vaccine 0.5 mL RxNorm: IM 07/09/2013 07/09/2013 Inactive Singulair 10 mg tablet RxNorm: 338256 Tablet(s) PO TAKE 1 TABLET DAILY 05/30/2013 02/26/2014 Inactive Celebrex 200 mg capsule RxNorm: 495322 Capsule(s) PO TAKE 1 CAPSULE TWICE DAILY 04/13/2013 02/26/2014 Inactive Singulair 10 mg tablet RxNorm: 221923 1 Tablet(s) PO daily 02/28/2013 05/29/2013 Inactive gemfibrozil 600 mg tablet RxNorm: 617947 Tablet(s) PO TAKE ONE TABLET BY MOUTH TWICE DAILY 11/28/2012 12/11/2013 Inactive Rocephin 500 mg Solution for Injection RxNorm: 1668229 1 Milliliter(s) Inj 10/23/2012 10/23/2012 Inactive paroxetine 20 mg tablet RxNorm: 9182034 1/2 Tablet(s) PO daily 07/13/2012 07/14/2013 Inactive TAKE ONE-HALF TABLET BY MOUTH EVERY DAY Fioricet 50 mg-325 mg-40 mg tablet RxNorm: 530760 1 Tablet(s) PO Q6 PRN 04/17/2012 07/15/2012 Inactive gemfibrozil 600 mg tablet RxNorm: 698114 Tablet(s) PO 11/17/2011 11/27/2012 Inactive TAKE ONE TABLET BY MOUTH TWICE DAILY gemfibrozil 600 mg Tab RxNorm: 317763 1 Tablet(s) PO BID 11/16/2011 11/16/2011 Inactive MIDRIN 325 mg-65 mg-100 mg Cap RxNorm: 652270 1 Capsule(s) PO Q4-6H 09/15/2011 04/17/2012 Inactive max 8 tabs/24 hours Influenza Virus Vaccine 0.5 mL RxNorm: IM 07/05/2011 07/05/2011 Inactive Pulmicort Flexhaler 180 mcg/Inhalation Breath Activated RxNorm: 4709301 1 Puff(s) INH daily 06/27/2011 07/26/2011 Inactive Singulair 10 mg tablet RxNorm: 125516 1 Tablet(s) PO daily 06/27/2011 07/26/2011 Inactive Celebrex 200 mg capsule RxNorm: 003742 1 Capsule(s) PO BID 06/27/2011 04/12/2013 Inactive paroxetine 20 mg tablet RxNorm: 2865963 1/2 Tablet(s) PO daily 06/27/2011 07/13/2012 Inactive gemfibrozil 600 mg Tab RxNorm: 223025 1 Tablet(s) PO BID 06/27/2011 11/15/2011 Inactive requests 90 day supply-refilled but needs labs amaury. vitamin B6-vitamin E-magnesium Oral RxNorm: Oral No Start Date Active Advil Oral RxNorm: Oral No Start Date Active gabapentin 100 mg tablet RxNorm: 029250 1 Tablet(s) PO PRN No Start Date Active ranitidine 150 mg tablet RxNorm: 751851 1 Tablet(s) PO daily No Start Date Active Claritin 10 mg tablet RxNorm: 018441 1 Tablet(s) PO daily No Start Date Active Flexeril 5 mg Tab RxNorm: 683228 1/2-2 Tablet(s) PO PRN 1/2-1 po q 8 hours prn back pain or muscle spasms No Start Date Active Dulera 200 mcg-5 mcg/actuation HFA aerosol inhaler RxNorm: 5870959 1 INH BID No Start Date Active gabapentin 300 mg capsule RxNorm: 631968 1 Capsule(s) PO TID No Start Date Active folic acid Oral RxNorm: Oral No Start Date Active baclofen 20 mg tablet RxNorm: 659867 1 Tablet(s) PO TID as needed No Start Date Active vitamin [id number] B1 Oral RxNorm: Oral No Start Date Active chlordiazepoxide-clidinium 5 mg-2.5 mg Cap RxNorm: 269345 1 Capsule(s) PO PRN For IBS No Start Date Active Singulair 10 mg Tab RxNorm: 807415 1 Tablet(s) PO daily No Start Date 06/26/2011 Inactive Omnicef 300 mg capsule RxNorm: 643065 1 Capsule(s) PO BID No Start Date 12/24/2013 Inactive albuterol sulfate HFA 90 mcg/Actuation Aerosol Inhaler RxNorm: 7837547 1-2 Puff(s) INH Q4 PRN No Start Date 08/23/2015 Inactive sample and rX provided aspirin 81 mg Tab, Delayed Release RxNorm: 277582 1 Tablet(s) PO BID No Start Date 12/28/2016 Inactive Tudorza Pressair 400 mcg/actuation Breath Activated RxNorm: 0095676 1 Puff(s) INH BID No Start Date 10/14/2014 Inactive niacin ER 500 mg Tab RxNorm: 3329292 1 Tablet(s) PO QHS No Start Date 02/27/2013 Inactive Celebrex 200 mg Cap RxNorm: 550731 1 Capsule(s) PO BID No Start Date 06/26/2011 Inactive loratadine 10 mg Tab RxNorm: 534880 1 Tablet(s) PO daily No Start Date 02/27/2013 Inactive Nasonex 50 mcg/Actuation [place] RxNorm: 347234 2 [place] NASAL BID No Start Date 06/26/2011 Inactive Zithromax Z-Marty 250 mg Tab RxNorm: 586020 Tablet(s) PO No Start Date 07/11/2011 Inactive 2 tabs today, then tabs 2-5 daily Zithromax Z-Marty 250 mg tablet RxNorm: 993978 Tablet(s) PO UD No Start Date 04/21/2013 Inactive Tessalon Perles 100 mg Cap RxNorm: 901282 1 Capsule(s) PO PRN No Start Date 07/11/2011 Inactive albuterol sulfate HFA 90 mcg/Actuation Aerosol Inhaler RxNorm: 9860903 Inhalation No Start Date 06/27/2011 Inactive Nasacort AQ 55 mcg Nasal [place] Aerosol RxNorm: 2578410 1 [place] NASAL PRN No Start Date 12/28/2016 Inactive gemfibrozil 600 mg Tab RxNorm: 991457 1 Tablet(s) PO BID No Start Date 06/26/2011 Inactive Pulmicort Flexhaler 180 mcg/Inhalation Breath Activated RxNorm: 6090514 1 INH daily No Start Date 06/26/2011 Inactive paroxetine 20 mg Tab RxNorm: 8571062 1/2 Tablet(s) PO daily No Start Date 06/26/2011 Inactive MIDRIN 325 mg-65 mg-100 mg Cap RxNorm: 389880 1 Capsule(s) PO Q4-6H No Start Date 09/14/2011 Inactive max 8 tabs/24 hours beta carotene Oral RxNorm: Oral No Start Date 12/28/2016 Inactive Medication Administered Medication Codes Instructions Start Date Status Kenalog 40 mg/mL suspension for injection RxNorm: 6896708 1Milliliter 02/02/2018 No longer Active Kenalog 40 mg/mL suspension for injection RxNorm: 2064424 Milliliter 08/21/2017 No longer Active Kenalog 40 mg/mL suspension for injection RxNorm: 9118101 Milliliter 06/30/2017 No longer Active Kenalog 40 mg/mL suspension for injection RxNorm: 6456315 Milliliter 05/09/2017 No longer Active Kenalog 40 mg/mL suspension for injection RxNorm: 3232764 1.5Milliliter 01/30/2017 No longer Active Kenalog 40 mg/mL suspension for injection RxNorm: 8843098 Milliliter 05/29/2015 No longer Active ceftriaxone 500 mg solution for injection RxNorm: 7305287 05/29/2015 No longer Active Kenalog 40 mg/mL suspension for injection RxNorm: 1583837 Milliliter 10/15/2014 No longer Active ceftriaxone 500 mg solution for injection RxNorm: 930907 10/15/2014 No longer Active Kenalog 40 mg/mL suspension for injection RxNorm: 8918755 Milliliter 02/17/2014 No longer Active Rocephin 500 mg solution for injection RxNorm: 157857 12/05/2013 No longer Active Influenza Virus Vaccine 0.5 mL RxNorm: 07/09/2013 No longer Active Rocephin 500 mg Solution for Injection RxNorm: 9367823 1Milliliter 10/23/2012 No longer Active Influenza Virus [...] Pelvic and perineal pain ICD-10: R10.2 ICD-9: [id number] 06/12/2015 Encounter for screening for malignant neoplasm [...] NO Growth Day 2 06/19/2018 Parathyroid Hormone Dym536 PTH 81.40 pg/ml 05/10/2018 Comp Metabolic Tpc184 NA 142 mEq/L 05/10/2018 Comp Metabolic Oti829 K 4.1 mEq/L 05/10/2018 Comp Metabolic Xjj243 CL 105 mEq/L 05/10/2018 Comp Metabolic Rlv444 CO2 27.0 mEq/L 05/10/2018 Comp Metabolic Cyi834 ANION GAP 14 05/10/2018 Comp Metabolic Jbt163 GLUCOSE 95 mg/dL 05/10/2018 Comp Metabolic Hqt638 Creat 0.9 mg/dL 05/10/2018 Comp Metabolic Niw070 eGFR 65 ml/min/1.73m2 05/10/2018 Comp Metabolic Xfb685 BUN 15 mg/dL 05/10/2018 Comp Metabolic Fgh155 B/C Ratio 16.9 Ratio 05/10/2018 Comp Metabolic Wry591 CALCIUM 9.8 mg/dL 05/10/2018 Comp Metabolic Lzh534 ALK PHOS 77 U/L 05/10/2018 Comp Metabolic Nri053 AST(SGOT) 24 U/L 05/10/2018 Comp Metabolic Gxs160 ALT(SGPT) 23 U/L 05/10/2018 Comp Metabolic Nqy010 BILI T 0.5 mg/dL 05/10/2018 Comp Metabolic Bji592 ALBUMIN 4.8 g/dL 05/10/2018 Comp Metabolic Flw941 TPRO 7.2 g/dL 05/10/2018 Comp Metabolic Vpv954 GLOB 2.5 g/dL 05/10/2018 Comp Metabolic Ydg097 A/G Ratio 1.9 Ratio 05/10/2018 Comp Metabolic Umy238 Osmo 284 mOsmo 05/10/2018 Vitamin D 25 Oh Afq7519 VITAMIN D, 25 HYDROXY 51.58 ng/mL 05/10/2018 [...] 32.1 pg 05/10/2018 Cbc With Differential Ord2 [place]% 9.6 % 05/10/2018 Cbc With Differential Ord2 [...] 3.52 K/ul 05/10/2018 Cbc With Differential Ord2 [place] ABS# 0.8 K/ul 05/10/2018 Cbc With Differential [...] 31.6 pg 01/09/2018 Cbc With Differential Ord2 [place]% 9.8 % 01/09/2018 Cbc With Differential Ord2 [...] 3.05 K/ul 01/09/2018 Cbc With Differential Ord2 [place] ABS# 0.7 K/ul 01/09/2018 Cbc With Differential Ord2 [place] ABS# 0.5 K/ul 01/09/2018 Cbc With Differential Ord2 Baso ABS# 0.0 K/ul 01/09/2018 Tsh Ord6 TSH (3rd IS) 3.12 uIU/mL 01/09/2018 Comp Metabolic Fcq819 NA 140 mEq/L 01/09/2018 Comp Metabolic Zbs318 K 4.0 mEq/L 01/09/2018 Comp Metabolic Jag420 CL 105 mEq/L 01/09/2018 Comp Metabolic Pgj609 CO2 28.0 mEq/L 01/09/2018 Comp Metabolic Ebf043 ANION GAP 11 01/09/2018 Comp Metabolic Oen169 GLUCOSE 98 mg/dL 01/09/2018 Comp Metabolic Fiq551 Creat 0.7 mg/dL 01/09/2018 Comp Metabolic Kzr721 eGFR 87 ml/min/1.73m2 01/09/2018 Comp Metabolic Kuk721 BUN 14 mg/dL 01/09/2018 Comp Metabolic Lad709 B/C Ratio 20.3 Ratio 01/09/2018 Comp Metabolic Qxv272 CALCIUM 9.8 mg/dL 01/09/2018 Comp Metabolic Uqd055 ALK PHOS 113 U/L 01/09/2018 Comp Metabolic Yfs234 AST(SGOT) 22 U/L 01/09/2018 Comp Metabolic Uac496 ALT(SGPT) 22 U/L 01/09/2018 Comp Metabolic Ldd693 BILI T 0.5 mg/dL 01/09/2018 Comp Metabolic Udp317 ALBUMIN 4.6 g/dL 01/09/2018 Comp Metabolic Bqq863 TPRO 7.0 g/dL 01/09/2018 Comp Metabolic Zbi477 GLOB 2.4 g/dL 01/09/2018 Comp Metabolic Hjd665 A/G Ratio 2.0 Ratio 01/09/2018 Comp Metabolic Wkm417 Osmo 280 mOsmo 01/09/2018 Lipid Ord30 CHOL 163 mg/dL 12/27/2016 Lipid Ord30 HDL 63.0 mg/dl 12/27/2016 Lipid Ord30 TRIG 62 mg/dL 12/27/2016 Lipid Ord30 LDL 88 mg/dL 12/27/2016 Lipid Ord30 C/HDL 2.6 Ratio 12/27/2016 Tsh Ord6 hTSH II 2.47 uIU/mL 12/27/2016 Comp Metabolic Klv508 NA 140 mEq/L 12/27/2016 Comp Metabolic Yik573 K 4.0 mEq/L 12/27/2016 Comp Metabolic Mdx677 CL 105 mEq/L 12/27/2016 Comp Metabolic Qoz881 CO2 28.0 mEq/L 12/27/2016 Comp Metabolic Qvu771 ANION GAP 11 12/27/2016 Comp Metabolic Yyy823 GLUCOSE 102 mg/dL 12/27/2016 Comp Metabolic Slb742 Creat 0.7 mg/dL 12/27/2016 Comp Metabolic Xle303 eGFR 81 ml/min/1.73m2 12/27/2016 Comp Metabolic Rcq321 BUN 15 mg/dL 12/27/2016 Comp Metabolic All840 B/C Ratio 20.3 Ratio 12/27/2016 Comp Metabolic Fef584 CALCIUM 10.0 mg/dL 12/27/2016 Comp Metabolic Lut594 ALK PHOS 110 U/L 12/27/2016 Comp Metabolic Cfn528 AST(SGOT) 20 U/L 12/27/2016 Comp Metabolic Jxd011 ALT(SGPT) 22 U/L 12/27/2016 Comp Metabolic Ldc948 BILI T 0.5 mg/dL 12/27/2016 Comp Metabolic Ike147 ALBUMIN 4.7 g/dL 12/27/2016 Comp Metabolic Gpr550 TPRO 7.2 g/dL 12/27/2016 Comp Metabolic Rgv521 GLOB 2.5 g/dL 12/27/2016 Comp Metabolic Rxp752 A/G Ratio 1.9 Ratio 12/27/2016 Comp Metabolic Zbz345 Osmo 280 mOsmo 12/27/2016 Cbc With Differential [...] 31.9 pg 12/27/2016 Cbc With Differential Ord2 [place]% 8.6 % 12/27/2016 Cbc With Differential Ord2 [...] 3.60 K/ul 12/27/2016 Cbc With Differential Ord2 [place] ABS# 0.6 K/ul 12/27/2016 Cbc With Differential [...] 31.7 pg 06/13/2016 Cbc With Differential Ord2 [place]% 8.4 % 06/13/2016 Cbc With Differential Ord2 [...] 3.26 K/ul 06/13/2016 Cbc With Differential Ord2 [place] ABS# 0.6 K/ul 06/13/2016 Cbc With Differential Ord2 Eos ABS# 1.0 K/ul 06/13/2016 Cbc With Differential Ord2 Baso ABS# 0.0 K/ul 06/13/2016 Comp Metabolic Xjq350 NA 141 mEq/L 03/25/2016 Comp Metabolic Ovv439 K 4.0 mEq/L 03/25/2016 Comp Metabolic Rdf802 CL 103 mEq/L 03/25/2016 Comp Metabolic Mij045 CO2 28.0 mEq/L 03/25/2016 Comp Metabolic Xvc136 ANION GAP 14 03/25/2016 Comp Metabolic Aay212 GLUCOSE 91 mg/dL 03/25/2016 Comp Metabolic Vrq304 Creat 0.8 mg/dL 03/25/2016 Comp Metabolic Uwz618 eGFR 70 ml/min/1.73m2 03/25/2016 Comp Metabolic Htq782 BUN 16 mg/dL 03/25/2016 Comp Metabolic Spk688 B/C Ratio 19.0 Ratio 03/25/2016 Comp Metabolic Vip476 CALCIUM 9.8 mg/dL 03/25/2016 Comp Metabolic Syt638 ALK PHOS 111 U/L 03/25/2016 Comp Metabolic Mtv911 AST(SGOT) 19 U/L 03/25/2016 Comp Metabolic Son550 ALT(SGPT) 19 U/L 03/25/2016 Comp Metabolic Mah806 BILI T 0.6 mg/dL 03/25/2016 Comp Metabolic Ldu476 ALBUMIN 4.6 g/dL 03/25/2016 Comp Metabolic Ipb411 TPRO 7.4 g/dL 03/25/2016 Comp Metabolic Sgy680 GLOB 2.8 g/dL 03/25/2016 Comp Metabolic Yfj394 A/G Ratio 1.7 Ratio 03/25/2016 Comp Metabolic Aal950 Osmo 282 mOsmo 03/25/2016 Tsh Ord6 hTSH [...] 32.0 pg 03/25/2016 Cbc With Differential Ord2 [place]% 9.4 % 03/25/2016 Cbc With Differential Ord2 [...] 3.20 K/ul 03/25/2016 Cbc With Differential Ord2 [place] ABS# 0.8 K/ul 03/25/2016 Cbc With Differential Ord2 Eos ABS# 0.8 K/ul 03/25/2016 Cbc With Differential Ord2 Baso ABS# 0.0 K/ul 03/25/2016 GFR CALC 1646927 GFR AA >60 ML/MIN 03/14/2012 GFR CALC 4374979 GFR NON-AA >60 ML/MIN 03/14/2012 TSH 6273617 TSH 2.609 uIU/ML 03/14/2012 LIPID GRP HDL [...] BILI TOT 0.6 MG/DL 03/14/2012 CHEM 14 20280419 ALK PHOS 115 U/L 03/14/2012 CHEM 14 20280419 SODIUM 141 MMOL/L 03/14/2012 CHEM 14 20280419 CREATININE 0.78 MG/DL 03/14/2012 CHEM 14 20280419 CALCIUM 9.9 MG/DL 03/14/2012 CHEM 14 20280419 POTASSIUM 4.2 MMOL/L 03/14/2012 CHEM 14 20280419 PROT TOT 7.4 GM/DL 03/14/2012 CHEM 14 20280419 GLUCOSE 91 MG/DL 03/14/2012 CHEM 14 20280419 BICARB 27 MMOL/L 03/14/2012 CHEM 14 20280419 ANION GAP 8 MEQ/L 03/14/2012 CBC 4710861 WBC 5.9 10e9/L 03/14/2012 CBC 9194037 RBC 4.62 10e12/L 03/14/2012 CBC 9914865 HGB 14.5 g/dL 03/14/2012 CBC 8801383 HCT DET 42.4 % 03/14/2012 CBC 1786539 MCV 91.8 fL 03/14/2012 CBC 8548841 MCH 31.4 pg 03/14/2012 CBC 9490859 MCHC 34.2 g/dL 03/14/2012 CBC 5906390 PLT 370 10e9/L 03/14/2012 CBC 9653434 MPV 10.2 fL 03/14/2012 CBC 2030987 NANO % 36.6 % 03/14/2012 CBC 1111340 LY % 47.6 % 03/14/2012 CBC 3681491 MON % 10.0 % 03/14/2012 CBC 1474290 EOS % 5.6 % 03/14/2012 CBC 2110799 BASO % 0.2 % 03/14/2012 CBC 7111708 RDW 12.3 % 03/14/2012 CBC 4473295 ABS NANO 2.16 10e9/L 03/14/2012 CBC 8651241 ABS LYMPH 2.81 10e9/L 03/14/2012 CBC 7018800 ABS MONO 0.59 10e9/L 03/14/2012 CBC 4341214 ABS EOS 0.33 10e9/L 03/14/2012 CBC 8757365 ABS BASO 0.01 10e9/L 03/14/2012 CBC 4301880 RDW-SD 40.4 fL 03/14/2012 Review of Systems [...] time 01/31/2017 None Full Exam - General 1995 Psychiatric mood and affect Overall: normal mood [...] intact 2013 None Full Exam - General 1995 Psychiatric orientation/consciousness Overall: oriented to person, place [...] time 02/28/2013 None Full Exam - General [facility] Psychiatric mood and affect Overall: normal mood [...] Formatting Model/CDA Sections, Assigned to/Juana Ji CPT-4: 03564Inqwcln 06/28/2018 DRAIN/INJECT JOINT/BURSA CPT-4: 28680 01/29/2018 TRIAMCINOLONE ACET INJ NOS CPT-4: J3301 01/29/2018 PPPS, SUBSEQ VISIT CPT- 4: G0439 01/08/2018 THER/PROPH/DIAG INJ SC/IM CPT-4: 22497 08/21/2017 TRIAMCINOLONE ACET INJ NOS CPT-4: J3301 08/21/2017 ADMIN INFLUENZA VIRUS VAC CPT-4: G0008 07/18/2017 FLU VACC PRSV FREE INC ANTIG CPT-4: 66535 07/18/2017 TRIAMCINOLONE ACET INJ NOS CPT-4: J3301 06/30/2017 TRIAMCINOLONE ACET INJ NOS CPT-4: J3301 05/09/2017 THER/PROPH/DIAG INJ SC/IM CPT-4: 48813 05/09/2017 TRIAMCINOLONE ACET INJ NOS CPT-4: J3301 01/30/2017 PPPS, SUBSEQ VISIT CPT- 4: G0439 01/02/2017 ADMIN INFLUENZA VIRUS VAC CPT-4: G0008 07/13/2016 FLU VACC PRSV FREE INC ANTIG CPT-4: 64278 07/13/2016 ADMIN INFLUENZA VIRUS VAC CPT-4: G0008 07/10/2015 FLU VACC 4 KARI 3 YRS PLUS IM Formatting Model/CDA Sections, Assigned to/Juana Ji CT: [id number] CPT-4: 63527Augwlej 07/10/2015 TRIAMCINOLONE ACET INJ NOS CPT-4: J3301 05/29/2015 ROCEPHIN, PER 250 MG CPT- 4: J0696 05/29/2015 THER/PROPH/DIAG INJ SC/IM CPT-4: 32369 10/15/2014 TRIAMCINOLONE ACET INJ NOS CPT-4: J3301 10/15/2014 ROCEPHIN, PER 250 MG CPT- 4: J0696 10/15/2014 THER/PROPH/DIAG INJ SC/IM CPT-4: 42472 02/17/2014 TRIAMCINOLONE ACET INJ NOS CPT-4: J3301 02/17/2014 ROCEPHIN, PER 250 MG CPT- 4: J0696 12/05/2013 ADMIN INFLUENZA VIRUS VAC CPT-4: G0008 07/09/2013 FLULAVAL VACC, 3 YRS & >, IM CPT-4: Q2036 07/09/2013 ROCEPHIN, PER 250 MG CPT- 4: J0696 10/23/2012 PRESCRIP TRANSMIT VIA ERX SY CPT-4: G8553 10/23/2012 ROUTINE VENIPUNCTURE CPT- 4: 38178 03/14/2012 ADMIN INFLUENZA VIRUS VAC CPT-4: G0008 07/05/2011 FLULAVAL VACC, 3 YRS & >, IM CPT-4: Q2036 07/05/2011 ROUTINE VENIPUNCTURE CPT- 4: 10444 06/28/2011 PRESCRIP TRANSMIT VIA ERX SY CPT-4: G8553 06/27/2011 Vital Signs Date Vital 01/24/2019 Blood Pressure 1: 138/74 Code: 8480-6 BMI: 32.9 Code: 75764-9 Heart Rate 1: 74 bpm Height: 5'2" SpO2: 97% Weight: 180 lbs 12/03/2018 Blood Pressure 1: 134/72 Code: 8480-6 BMI: 31.1 Code: 30527-3 Heart Rate 1: 89 bpm Height: 5'2" SpO2: 99% Weight: 170 lbs 11/19/2018 Blood Pressure 1: 134/56 Code: 8480-6 BMI: 31.1 Code: 17155-6 Heart Rate 1: 88 bpm Height: 5'2" SpO2: 98% Weight: 170 lbs 11/07/2018 Blood Pressure 1: 140/70 Code: 8480-6 BMI: 31.1 Code: 53169-2 Heart Rate 1: 91 bpm Height: 5'2" SpO2: 99% Weight: 170 lbs 09/04/2018 Blood Pressure 1: 140/80 Code: 8480-6 BMI: 31.3 Code: 17949-3 Heart Rate 1: 82 bpm Height: 5'2" SpO2: 95% Weight: 171 lbs 07/10/2018 Blood Pressure 1: 144/46 Code: 8480-6 BMI: 31.5 Code: 80289-8 Heart Rate 1: 86 bpm Height: 5'2" SpO2: 97% Weight: 172 lbs 06/19/2018 Blood Pressure 1: 150/80 Code: 8480-6 BMI: 31.5 Code: 23167-7 Heart Rate 1: 94 bpm Height: 5'2" SpO2: 96% Weight: 172 lbs 6 oz 01/29/2018 Blood Pressure 1: 148/66 Code: 8480-6 BMI: 31.8 Code: 77691-5 Heart Rate 1: 80 bpm Height: 5'2" SpO2: 96% Weight: 174 lbs 01/08/2018 Blood Pressure 1: 122/72 Code: 8480-6 BMI: 32.0 Code: 96516-2 Heart Rate 1: 79 bpm Height: 5'2" SpO2: 99% Weight: 175 lbs 08/21/2017 Blood Pressure 1: 162/78 Code: 8480-6 BMI: 32.2 Code: 49329-2 Heart Rate 1: 82 bpm Height: 5'2" SpO2: 97% Temperature: 36.6 (C) / 97.8 (F) Weight: 176 lbs 07/18/2017 Blood Pressure 1: 136/70 Code: 8480-6 BMI: 31.9 Code: 10863-4 Heart Rate 1: 81 bpm Height: 5'2" SpO2: 96% Weight: 174 lbs 8 oz 06/30/2017 Blood Pressure 1: 128/74 Code: 8480-6 BMI: 31.8 Code: 45833-8 Heart Rate 1: 89 bpm Height: 5'2" SpO2: 97% Weight: 174 lbs 05/08/2017 Blood Pressure 1: 148/82 Code: 8480-6 BMI: 30.9 Code: 77079-8 Heart Rate 1: 79 bpm Height: 5'2" SpO2: 95% Weight: 169 lbs 02/14/2017 Blood Pressure 1: 126/72 Code: 8480-6 Heart Rate 1: 76 bpm Height: 5'2" SpO2: 97% Weight: 01/31/2017 Blood Pressure 1: 154/80 Code: 8480-6 BMI: 32.0 Code: 81179-7 Heart Rate 1: 81 bpm Height: 5'2" SpO2: 97% Weight: 175 lbs 01/30/2017 Blood Pressure 1: 136/78 Code: 8480-6 Heart Rate 1: 92 bpm Height: 5'2" SpO2: 96% Temperature: 37.4 (C) / 99.3 (F) Weight: 01/02/2017 Blood Pressure 1: 146/66 Code: 8480-6 BMI: 31.8 Code: 36946-1 Heart Rate 1: 81 bpm Height: 5'2" SpO2: 98% Weight: 174 lbs 12/29/2016 Blood Pressure 1: 140/78 Code: 8480-6 BMI: 31.8 Code: 11322-1 Heart Rate 1: 88 bpm Height: 5'2" SpO2: 97% Weight: 174 lbs 03/24/2016 Blood Pressure 1: 132/88 Code: 8480-6 BMI: 31.6 Code: 14210-4 Heart Rate 1: 91 bpm Height: 5'2" SpO2: 99% Weight: 173 lbs 09/25/2015 Blood Pressure 1: 112/60 Code: 8480-6 BMI: 31.3 Code: 22280-6 Heart Rate 1: 85 bpm Height: 5'2" SpO2: 97% Weight: 171 lbs 08/24/2015 Blood Pressure 1: 142/60 Code: 8480-6 BMI: 30.9 Code: 20693-2 Heart Rate 1: 94 bpm Height: 5'2" SpO2: 97% Weight: 169 lbs 06/12/2015 Blood Pressure 1: 122/64 Code: 8480-6 BMI: 31.1 Code: 88647-9 Heart Rate 1: 91 bpm Height: 5'2" SpO2: 97% Weight: 170 lbs 05/29/2015 Blood Pressure 1: 150/78 Code: 8480-6 BMI: 31.6 Code: 17671-1 Heart Rate 1: 79 bpm Height: 5'2" SpO2: 93% Weight: 173 lbs 03/26/2015 Blood Pressure 1: 124/82 Code: 8480-6 BMI: 31.8 Code: 92787-7 Heart Rate 1: 80 bpm Height: 5'2" Respiratory Rate: 20 bpm Weight: 174 lbs 03/17/2015 Blood Pressure 1: 128/78 Code: 8480-6 BMI: 31.8 Code: 35384-2 Heart Rate 1: 84 bpm Height: 5'2" Respiratory Rate: 20 bpm Weight: 174 lbs 10/15/2014 Blood Pressure 1: 130/64 Code: 8480-6 BMI: 32.6 Code: 27204-0 Heart Rate 1: 80 bpm Height: 5'2" Weight: 178 lbs 04/10/2014 Blood Pressure 1: 128/70 Code: 8480-6 BMI: 31.6 Code: 59695-6 Heart Rate 1: 80 bpm Height: 5'2" Weight: 173 lbs 02/17/2014 Blood Pressure 1: 108/58 Code: 8480-6 BMI: 32.0 Code: 70876-4 Heart Rate 1: 80 bpm Height: 5'2" Temperature: 37.4 (C) / 99.3 (F) Weight: 175 lbs 12/05/2013 Blood Pressure 1: 144/80 Code: 8480-6 Heart Rate 1: 72 bpm SpO2: 98% Temperature: 36.9 (C) / 98.4 (F) Weight: 177 lbs 09/25/2013 Blood Pressure 1: 136/82 Code: 8480-6 BMI: 32.7 Code: 05712-0 Heart Rate 1: 84 bpm Height: 5'2" Weight: 179 lbs 07/09/2013 Blood Pressure 1: 144/70 Code: 8480-6 BMI: 32.0 Code: 40868-1 Heart Rate 1: 76 bpm Height: 5'2" Weight: 175 lbs 2013 Blood Pressure 1: 128/72 Code: 8480-6 BMI: 31.8 Code: 36432-8 Heart Rate 1: 68 bpm Height: 5'2" Weight: 174 lbs 03/22/2013 Blood Pressure 1: 128/68 Code: 8480-6 BMI: 31.8 Code: 99570-4 Heart Rate 1: 68 bpm Height: 5'2" Weight: 174 lbs 02/28/2013 Blood Pressure 1: 128/72 Code: 8480-6 BMI: 31.5 Code: 35587-0 Heart Rate 1: 80 bpm Height: 5'2" Weight: 172 lbs 10/23/2012 Blood Pressure 1: 124/78 Code: 8480-6 Heart Rate 1: 68 bpm Temperature: 36.8 (C) / 98.2 (F) Weight: 172 lbs 03/08/2012 Blood Pressure 1: 124/68 Code: 8480-6 Heart Rate 1: 80 bpm Weight: 171 lbs 09/28/2011 Blood Pressure 1: 112/58 Code: 8480-6 BMI: 31.6 Code: 76156-8 Heart Rate 1: 76 bpm Height: 5'2" Respiratory Rate: 16 bpm Weight: 173 lbs 06/27/2011 Blood Pressure 1: 117/61 Code: 8480-6 BMI: 30.4 Code: 00329-2 Heart Rate 1: 86 bpm Height: 5'3" [...] 3 days per week 01/08/2018 works at [employer] Annual Medicare Wellness Exam Handling Stress often [...] 03/08/2012 Works 3 days per week at [employer], is retired osteoarthritis Frequency of Episodes unchanged [...] data Encounters Encounter Performer Location Codes Date ([id number]) 06412 EST. PATIENT, LEVEL IV Diagnosis: Essential (primary) hypertension[ICD10: I10] Diagnosis: Mild intermittent asthma, uncomplicated[ICD10: J45.20] Deneen Rosenberg MD, [facility] CPT-4: 08247 01/24/2019 25601 EST. PATIENT, LEVEL III Diagnosis: Encounter for follow-up examination after completed treatment for conditions other than malignant neoplasm[ICD10: Z09] Diagnosis: Low back pain[ICD10: M54.5] [facility] CPT-4: 11444 12/03/2018 [id number]) 21610 EST. PATIENT, LEVEL III Diagnosis: Postherpetic trigeminal neuralgia[ICD10: B02.22] Deneen Rosenberg MD, [facility] CPT-4: 29590 11/19/2018 [id number]) 61695 EST. PATIENT, LEVEL III Diagnosis: Chronic obstructive pulmonary disease with (acute) exacerbation[ICD10: J44.1] Diagnosis: Postherpetic trigeminal neuralgia[ICD10: B02.22] Deneen Rosenberg MD, [facility] CPT-4: 52134 11/07/2018 ([id number]) 50141 EST. PATIENT, LEVEL IV Diagnosis: Essential (primary) hypertension[ICD10: I10] Diagnosis: Chronic frontal sinusitis[ICD10: J32.1] Deneen Rosenberg MD, [facility] CPT-4: 52132 09/04/2018 ([id number]) 32228 EST. PATIENT, LEVEL III Diagnosis: Other retention of urine[ICD10: R33.8] Diagnosis: Mild intermittent asthma with (acute) exacerbation[ICD10: J45.21] Deneen Rosenberg MD, [facility] CPT-4: 23132 07/10/2018 ([id number]) 23270 EST. PATIENT, LEVEL IV Diagnosis: Primary hyperparathyroidism[ICD10: E21.0] Diagnosis: Personal history of other diseases of the musculoskeletal system and connective tissue[ICD10: Z87.39] Deneen Rosenberg MD, [facility] CPT-4: 59910 06/19/2018 55443 EST. PATIENT, LEVEL III Diagnosis: Low back pain[ICD10: M54.5] Diagnosis: Sciatica, right side[ICD10: M54.31] Chastity Rosenberg MD, [facility] CPT- 4: 60938 01/29/2018 45423 EST. PATIENT, LEVEL III Diagnosis: Mild intermittent asthma with (acute) exacerbation[ICD10: J45.21] Diagnosis: Cough[ICD10: R05] Diagnosis: Other allergic rhinitis[ICD10: J30.89] Chastity Rosenberg MD, [facility] CPT- 4: 78914 08/21/2017 ([id number]) 60195 EST. PATIENT, LEVEL IV Diagnosis: Mild intermittent asthma with (acute) exacerbation[ICD10: J45.21] Diagnosis: Essential (primary) hypertension[ICD10: I10] Diagnosis: Encounter for immunization[ICD10: Z23] Diagnosis: Sciatica, right side[ICD10: M54.31] Diagnosis: Low back pain[ICD10: M54.5] Deneen Rosenberg MD, [facility] CPT-4: 26985 07/18/2017 ([id number]) 80625 EST. PATIENT, LEVEL III Diagnosis: Cough[ICD10: R05] Diagnosis: Other allergic rhinitis[ICD10: J30.89] Lalitha Rosenberg MD, [facility] CPT-4: 32559 06/30/2017 07005 EST. PATIENT, LEVEL III Diagnosis: Low back pain[ICD10: M54.5] Diagnosis: Dizziness and giddiness[ICD10: R42] Chastity Rosenberg MD, [facility] CPT- 4: 95066 05/08/2017 ([id number]) 34332 EST. PATIENT, LEVEL III Diagnosis: Essential (primary) hypertension[ICD10: I10] Diagnosis: Low back pain[ICD10: M54.5] Diagnosis: Sciatica, right side[ICD10: M54.31] Deneen Rosenberg MD, [facility] CPT- 4: 80647 02/14/2017 ([id number]) 30231 EST. PATIENT, LEVEL III Diagnosis: Essential (primary) hypertension[ICD10: I10] Deneen Rosenberg MD [facility] CPT-4: 55772 01/31/2017 ([id number]) 25013 EST. PATIENT, LEVEL III Diagnosis: Cough[ICD10: R05] Diagnosis: Acute recurrent maxillary sinusitis[ICD10: J01.01] Lalitha Rosenberg MD, [facility] CPT-4: 53294 01/30/2017 ([id number]) 83952 EST. PATIENT, LEVEL III Diagnosis: Essential (primary) hypertension[ICD10: I10] Diagnosis: Mild intermittent asthma with (acute) exacerbation[ICD10: J45.21] Diagnosis: Tinea corporis[ICD10: B35.4] Deneen Rosenberg MD, [facility] CPT-4: 25667 12/29/2016 ([id number]) Miscellaneous no charge Diagnosis: Epistaxis[ICD10: R04.0] Chastity Rosenberg MD, [facility] CPT-4: 72030 04/01/2016 ([id number]) 47845 EST. PATIENT, LEVEL IV Diagnosis: Essential (primary) hypertension[ICD10: I10] Diagnosis: Mild intermittent asthma, uncomplicated[ICD10: J45.20] Diagnosis: Insomnia, unspecified[ICD10: G47.00] Lalitha Rosenberg MD, [facility] CPT-4: 91879 03/24/2016 30212 EST. PATIENT, LEVEL III Diagnosis: Mild intermittent asthma with (acute) exacerbation[ICD10: J45.21] Diagnosis: Epistaxis[ICD10: R04.0] Chastity Rosenberg MD, [facility] CPT-4: 11010 09/25/2015 ([id number]) 80866 EST. PATIENT, LEVEL III Diagnosis: Acute recurrent maxillary sinusitis[ICD10: J01.01] Diagnosis: Allergic rhinitis due to pollen[ICD10: J30.1] Lalitha Rosenberg MD, [facility] CPT-4: 53503 08/24/2015 ([id number]) 21929 EST. PATIENT, LEVEL IV Diagnosis: Well woman exam[ICD9: V70.0] Diagnosis: Encounter for screening for malignant neoplasm of vagina[ICD10: Z12.72] Diagnosis: Pelvic and perineal pain[ICD10: R10.2] Lalitha Rosenberg MD, [facility] CPT-4: 42716 06/12/2015 ([id number]) 39394 EST. PATIENT, LEVEL III Diagnosis: Tinea corporis[ICD9: 110.5] Diagnosis: ACUTE MAXILLARY SINUSITIS[ICD9: 461.0] Lalitha Rosenberg MD, [facility] CPT-4: 25483 05/29/2015 ([id number]) 01766 EST. PATIENT, LEVEL IV Diagnosis: Skin tag[ICD9: 701.9] Diagnosis: Seborrheic keratoses[ICD9: 702.19] Diagnosis: Comedone[ICD9: 706.1] Diagnosis: IMPACTED CERUMEN[ICD9: 380.4] Rosemarie Rosenberg MD, [facility] CPT-4: 99112 03/26/2015 ([id number]) 14433 EST. PATIENT, LEVEL IV Diagnosis: ESSENTIAL HYPERTENSION[ICD9: 401.9] Diagnosis: HYPERLIPIDEMIA[ICD9: 272.4] Diagnosis: Fatigue[ICD9: 780.79] Diagnosis: INSECT BITE HIP/LEG[ICD9: 916.4] Rosemarie Rosenberg MD, [facility] CPT-4: 61025 03/17/2015 ([id number]) 96007 EST. PATIENT, LEVEL IV Diagnosis: Acute bronchitis[ICD9: 466.0] Diagnosis: MALAISE AND FATIGUE[ICD9: 780.79] Diagnosis: COUGH[ICD9: 786.2] Diagnosis: CHRONIC OBSTRUCTIVE ASTHMA WITH EXACERBATION[ICD9: 493.22] Deneen Rosenberg MD [facility] CPT-4: 72235 10/15/2014 ([id number]) 96072 EST. PATIENT, LEVEL III Diagnosis: Acute anterior epistaxis[ICD9: 784.7] Diagnosis: ESSENTIAL HYPERTENSION[ICD9: 401.9] Lalitha Rosenberg MD [facility] CPT-4: 51994 04/10/2014 ([id number]) 37474 EST. PATIENT, LEVEL III Diagnosis: Acute bronchitis[ICD9: 466.0] Diagnosis: COUGH[ICD9: 786.2] Diagnosis: Nasal congestion[ICD9: 478.19] Deneen Rosenberg MD [facility] CPT-4: 17000 02/17/2014 ([id number]) 96009 EST. PATIENT, LEVEL III Diagnosis: ACUTE SINUSITIS[ICD9: 461.9] Lalitha Rosenberg MD [facility] CPT-4: 06908 12/05/2013 ([id number]) 87260 EST. PATIENT, LEVEL IV Diagnosis: HYPERLIPIDEMIA[ICD9: 272.4] Diagnosis: CHRONIC OBSTRUCTIVE ASTHMA[ICD9: 493.20] Diagnosis: SLEEP APNEA NOS[ICD9: 780.57] Diagnosis: GENERAL OSTEOARTHROSIS-MULT[ICD9: 715.09] Deneen Rosenberg MD [facility] CPT-4: 50944 09/25/2013 ([id number]) 09310 EST. PATIENT, LEVEL III Diagnosis: CHRONIC OBSTRUCTIVE ASTHMA[ICD9: 493.20] Deneen Rosenberg MD [facility] CPT-4: 58846 07/09/2013 ([id number]) Miscellaneous no charge Diagnosis: CHRONIC OBSTRUCTIVE ASTHMA[ICD9: 493.20] Deneen Rosenberg MD [facility] CPT-4: 93046 06/11/2013 ([id number]) 03412 EST. PATIENT, LEVEL IV Diagnosis: CHRONIC OBSTRUCTIVE ASTHMA[ICD9: 493.20] Diagnosis: Sleep apnea[ICD9: 780.57] Deneen Rosenberg MD [facility] CPT-4: 92160 2013 ([id number]) 10176 EST. PATIENT, LEVEL IV Diagnosis: CHRONIC OBSTRUCTIVE ASTHMA[ICD9: 493.20] Diagnosis: OSTEOARTH NOS-UNSPEC[ICD9: 715.90] Diagnosis: MALAISE AND FATIGUE[ICD9: 780.79] Deneen Rosenberg MD, [facility] CPT- 4: 16964 03/22/2013 ([id number]) 36234 EST. PATIENT, LEVEL IV Diagnosis: HYPERLIPIDEMIA[ICD9: 272.4] Diagnosis: OSTEOARTH NOS-UNSPEC[ICD9: 715.90] Diagnosis: MALAISE AND FATIGUE[ICD9: 780.79] [facility] CPT- 4: 56490 02/28/2013 ([id number]) 80202 EST. PATIENT, LEVEL III Diagnosis: ACUTE SINUSITIS[ICD9: 461.9] Diagnosis: COUGH[ICD9: 786.2] Lalitha Rosenberg MD, [facility] CPT-4: 41213 10/23/2012 ([id number]) 11301 EST. PATIENT, LEVEL IV Diagnosis: ESSENTIAL HYPERTENSION[SNOMED: 17008982] Diagnosis: HYPERLIPIDEMIA[ICD9: 272.4] Diagnosis: CHRONIC OBSTRUCTIVE ASTHMA[ICD9: 493.20] Deneen Rosenberg MD, [facility] CPT-4: 07882 03/08/2012 ([id number]) 12458 EST. PATIENT, LEVEL IV Diagnosis: CHRONIC OBSTRUCTIVE ASTHMA[ICD9: 493.20] Diagnosis: Primary generalized (osteo)arthritis[ICD9: 715.09] Diagnosis: PAIN IN LIMB[ICD9: 729.5] [facility] CPT-4: 62972 09/28/2011 40097 EST. PATIENT, LEVEL IV Diagnosis: ACUTE SINUSITIS[ICD9: 461.9] Diagnosis: Asthma[ICD9: 493.90] Diagnosis: Osteoarthritis[ICD9: 715.90] Diagnosis: Hyperlipidemia[ICD9: 272.4] Lalitha Rosenberg MD, [facility] CPT-4: 60978 06/27/2011 Plan of Care Planned Activity Notes [...] and proair. 01/24/2019 Appointment: Deneen Rosenberg WPtel: [facility] (15 min) Moderate 01/24/2019 Patient Education: Patient [...] or concerns. 12/03/2018 Appointment: Chastity Chavira WPtel: [facility] (30 min) Complex 12/03/2018 Patient Education: Patient Medication Summary Completed 12/03/2018 Patient Education: Back Pain Completed 12/03/2018 Visit Plan: Post-herpetic neuralgia - pt to stop acyclovir - finish dose of steroid - monitor symptoms, call if symptoms return. 11/19/2018 Appointment: Deneen Rosenberg WPtel: [facility] (15 min) Moderate 11/19/2018 Patient Education: Patient Medication Summary Completed 11/19/2018 Visit Plan: Trigeminal Neuralgia - due to shingles - rx for prednisone taper and valcyvlovir 1 gram bid. COPD - rx for albuterol and proair. 11/07/2018 Appointment: Deneen Rosenberg WPtel: [facility] (15 min) Moderate 11/07/2018 Patient Education: Patient [...] 10 days. 09/04/2018 App[facility]ment[phone] ([facility] min) Moderate 09/04/2018 Patient Education: Patient Medication Summary Completed 09/04/2018 Patient Education: Hypertension Completed 09/04/2018 Visit Plan: Asthma - chronic problem for this patient. We have reviewed chronic treatment strategy, symptom control, and plans for acute exacerbations. No changes today to the current treatment plan as the patient is stable, monitor for acute changes 07/10/2018 Appointment: Deneen Rosenberg WPtel: [phone] [facility] (15 min) Moderate 07/10/2018 Patient Education: Patient Medication Summary Completed 07/10/2018 Appointment: Injection 06/28/2018 Patient Education: Patient Medication Summary Completed 06/28/2018 Visit Plan: Elevated PTH - parathyroid nuclear medicine uptake at [facility] in [place] - 06/26, , 13 are open Osteopenia - discussed the pt's dx and the fact that insurance will not pay for prolia due to lack of dx of Osteoporosis. 06/19/2018 Appointment: [phone] [facility] (15 min) Moderate 06/19/2018 Patient Education: Patient [...] injection. 01/29/2018 App[phone] [facility] ([facility] min) Complex 01/29/2018 Patient Education: [...] care surrogate. 01/08/2018 App[facility]ment: [phone] [phone] [facility] - Annual Wellness Visit 01/08/2018 Patient Education: [...] changes 07/18/2017 Appointment[phone] (15 min) Moderate 07/18/2017 Patient Education: [...] symptoms persist 06/30/2017 Appointment: [facility]cal[phone] [phone] (15 min) Moderate 06/30/2017 Patient Education: [...] or concerns. 05/08/2017 Appointment: Chastity Chavira WPtel: [phone] [facility] (30 min) Complex 05/08/2017 Patient Education: [...] worsen. 02/14/2017 Appointment: Deneen Rosenberg WPtel: [facility]4 [facility] (15 min) Moderate 02/14/2017 Patient Education: Patient Medication Summary Completed 02/14/2017 Care Plan: Referral Order SNOMED-CT : [id number] Pending 02/14/2017 Appointment: Deneen Rosenberg WPtel: [facility]6 [id number] (15 min) Moderate 02/01/2017 Visit Plan: Hypertension - well controlled - continue with current medications, continue with no added salt diet. Pt has been encouraged to exercise daily. The pt has been advised to call the office if there are any acute concerns about change in blood pressure readings at home. Cough - improved from yesterday. 01/31/2017 Appointment: Deneen Rosenberg WPtel: [facility]8 [facility] (15 min) Moderate 01/31/2017 Patient Education: Patient Medication Summary Completed 01/31/2017 Patient Education: Obesity Completed 01/31/2017 Patient Education: Hypertension Completed 01/31/2017 Visit Plan: Sinusitis - Pt has acute infection - pain in face, maxillary region, Pt informed to use decongestant, RX given to patient, sinus rinses also recommended. Call if symptoms do not show improvement. 01/30/2017 Appointment: Lalitha Alcala [facility]el[facility] [phone] [phone] (15 min) Moderate 01/30/2017 Patient Education: Patient [...] Ketoconazole shampoo. 12/29/2016 Appointment: [phone] (15 min) Moderate 12/29/2016 Patient Education: Patient Medication Summary Completed 12/29/2016 Patient Education: Obesity Completed 12/29/2016 Patient Education: Hypertension Completed 12/29/2016 Patient Education: Patient Medication Summary Completed 12/26/2016 Appointment: Injection 07/13/2016 Patient Education: Patient Medication Summary Completed 07/13/2016 Visit Plan: Pt went to ED from office, stating she does not think she will be able to get to her ENT in [place]. 04/01/2016 Appointment: Lalitha Alcala [facility]el[facility] [phone] [phone] (30 min) Complex 04/01/2016 Patient Education: Patient [...] when traveling 03/24/2016 Appointment: Lalitha Alcala WPtel: [phone] (30 min) Complex 03/24/2016 Patient Education: [...] Care Plan: COMPLETE CBC AUTOMATED LOINC : 47228-6 Ordered 03/17/2015 Visit Plan: Asthma EXACERBATION - [...] acutely worsen. 10/15/2014 Appointment: Deneen Rosenberg WPtel: [address] [place], [place] [phone] [facility] 10/15/2014 Patient Education: Patient Medication Summary [...] improvement. 12/05/2013 Appointment: Lalitha Alcala WPtel: [phone] [phone] [place] [address] 12/05/2013 Patient Education: Patient Medication Summary Completed 12/05/2013 Appointment: Deneen Rosenberg [facility]Ptel[facility] [phone] [facility] Follow up 10/01/2013 Visit Plan: Hyperlipidemia [...] consider cpap. 09/25/2013 Appointment: Deneen Rosenberg WPtel: [address] [place], [place] [phone] Follow up 09/25/2013 Patient Education: Patient Medication Summary Completed 09/25/2013 Visit Plan: Asthma - chronic problem for this patient. We have reviewed chronic treatment strategy, symptom control, and plans for acute exacerbations. No changes today to the current treatment plan as the patient is stable, monitor for acute changes 07/09/2013 Appointment: Deneen Rosenberg WPtel: [address] [place], [place] [phone] Follow up 07/09/2013 Patient Education: Patient Medication Summary Completed 07/09/2013 Appointment: Deneen Rosenberg WPtel: [address] [place], [place] [phone] Follow up 07/01/2013 Appointment: Lalitha Alcala WPtel: [address] [place], [place] [phone] Lab Draw 06/11/2013 Patient Education: Patient Medication [...] hypoxemia. 2013 Appointment: Deneen Rosenberg WPtel: [facility]8 [facility] Other 2013 Patient Education: Patient Medication Summary [...] ENTRAPMENT. 03/22/2013 Appointment: Deneen Rosenberg WPtel: [facility] [place] Other 03/22/2013 Patient Education: Patient Medication [...] labs. 02/28/2013 Appointment: Deneen Rosenberg WPtel: [facility] Follow up 02/28/2013 Patient Education: Patient Medication Summary Completed 02/28/2013 Visit Plan: Sinusitis - Pt has acute infection - pain in face, maxillary region, Pt informed to use decongestant, RX given to patient, sinus rinses also recommended. Call if symptoms do not show improvement. Rocephin injection today in the office 10/23/2012 Appointment: Lalitha Alcala WPtel: [phone] [place] S[place] 10/23/2012 Patient Education: Patient Medication Summary Completed 10/23/2012 Appointment: Deneen Rosenberg WPtel: [phone] [facility] Lab Draw 03/14/2012 Patient Education: Patient Medication [...] medications. 03/08/2012 Appointment: Deneen Rosenberg WPtel: [facility]5 [facility] [place] Other 03/08/2012 Patient Education: Patient Medication Summary Completed 03/08/2012 Patient Education: High Blood Pressure: Essential Hypertension Completed 03/08/2012 Visit Plan: Asthma- controlled by the current medication.. No change in the treatment at this time. Osteoarthritis- pt has been instructed to use celebrex twice daily on the days that she is working. 09/28/2011 Appointment: Deneen Rosenberg WPtel: [facility] Follow up 09/28/2011 Patient Education: Patient Medication Summary Completed 09/28/2011 Appointment: Deneen Rosenberg [facility]Ptel: [phone] [facility] [place] Injection 07/05/2011 Patient Education: Patient Medication Summary Completed 07/05/2011 Appointment: Deneen Rosenberg WPtel: [phone] [facility] [place] Lab Draw 06/28/2011 Patient Education: Patient [...] as indicated. 06/27/2011 Appointment: Lalitha Alcala WPtel: [address] [place] [phone] Other 06/27/2011 Patient Education: Patient Medication Summary Completed 06/27/2011 Care Plan: CBC (COMPLETE CBC W/AUTO DIFF WBC) LOINC : 08626-3 Ordered 06/27/2011 Care Plan: CHEM 14 (COMPREHEN METABOLIC PANEL) LOINC : 78478-2 Ordered 06/27/2011 Care Plan: LIPID GRP (LIPID PANEL) LOINC : 07350-1 Ordered 06/27/2011 Care Plan: TSH (ASSAY THYROID [...] with any changes, questions or concerns. . COPD - chronic problem for this [...] prove beneficial in her noctural hypoxemia. . Hypertension - well controlled - continue [...] or prn. Vaginal dryness-samples of estrace cream Start Align or Culturelle Probiotic Daily, Sample [...] to medications. Patient provided with mammogram order. PT AGREED TO SLEEP STUDY AND PFT'S, [...] HAND/ARM PAIN - SUSPECT CARPAL TUNNEL ENTRAPMENT. kenalog injection sputum culture if cough persists [...] spray. Cough-sputum culture if symptoms persist . Sinusitis - Pt has acute infection [...] with any other questions or concerns. . Hypertension - well controlled - continue [...] Rocephin injection today in the office . Hypertension - well controlled - continue with current medications, continue with no added salt diet. Pt has been encouraged to exercise daily. The pt has been advised to call the office if there are any acute concerns about change in blood pressure readings at home. COPD/Asthma - rx for albuterol and proair. . Sinusitis - Pt has acute infection - pain in face, maxillary region, Pt informed to use decongestant, RX given to patient, sinus rinses also recommended. Call if symptoms do not show improvement. HOLD ASPIRIN X 2 DAYS BACTROBAN OINMENT TO RIGHT NARE TWICE DAILY X 5 DAYS CALL IF NOSEBLEEDS PERSIST . Nasal lesion-recent nosebleeds-recommend bactroban to irritated nare, avoid blowing her nose, and hold aspirin for the next 2 days. Call if bleeding returns. HTN-well controlled-no changes . 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 DX sinusitis - discussed expected course with [...] patient and checks labs as indicated. . Pt went to ED from office, stating she does not think she will be able to get to her ENT in [place]. Start Align or Culturelle Probiotic Daily, Sample [...] medications. Patient provided with mammogram order. . Asthma EXACERBATION - ASTHMA is a [...] improved, or if symptoms acutely worsen. . Arthritis - plan to refer pt [...] assure normal liver response to medications. . Medicare Exam - today we discussed [...] DOPA paperwork for health care surrogate. . Hypertension - well controlled - continue [...] temazepam to use as needed when traveling Breathing treatments 3 times a day x [...] patient is stable, monitor for acute changes. sample of TUDORZA ONE INHALE TWICE DAILY, RINSE OUT MOUTH AFTER USE.. Asthma - chronic problem for this patient. We have reviewed chronic treatment strategy, symptom control, and plans for acute exacerbations. No changes today to the current treatment plan as the patient is stable, monitor for acute changes . Low back pain- the patient was [...] occurs at the site of injection. . Trigeminal Neuralgia - due to shingles - rx for prednisone taper and valcyvlovir 1 gram bid. COPD - rx for albuterol and proair. . Cerumen Impaction - The impacted cerumen [...] refer to general surgery for removal. . Well Adult Female - exam completed. [...] not improve or if they worsen. . Post-herpetic neuralgia - pt to stop acyclovir - finish dose of steroid - monitor symptoms, call if symptoms return. . Well Adult Female - exam completed. [...] prn. Vaginal dryness-samples of estrace cream . Elevated PTH - parathyroid nuclear medicine uptake at [facility] in [place] - 06/26, , 13 are open Osteopenia - discussed the pt's dx and the fact that insurance will not pay for prolia due to lack of dx of Osteoporosis. . Asthma- controlled by the current medication.. No change in the treatment at this time. Osteoarthritis- pt has been instructed to use celebrex twice daily on the days that she is working. recommended pt to hold the GEMFIBROZIL x [...] [place] and fatigue - check labs. . Hyperlipidemia - pt has been counseled [...] problems and desires to consider cpap. . Sinusitis - Pt has acute infection - pain in face, maxillary region, Pt informed to use decongestant, RX given to patient, sinus rinses also recommended. Call if symptoms do not show improvement. Rocephin and kenalog injections today in the office Tinea-nystatin powder as directed-call if rash does not resolve or if any worse Start Align or Culturelle Probiotic Daily, Sample [...] current treatment. Rash - Ketoconazole shampoo. . Sinusitis - Pt has acute infection [...] is stable, monitor for acute changes . Well Adult Female - exam completed. Pt will be called with results of her testing. She was advised to continue with yearly annual exams. Call if any abnormal gynecologic issues during the next year, otherwise, RTC yearly or prn. Vaginal dryness-samples of estrace cream . epistaxis - Pt states that she [...] patient is stable, monitor for acute changes SWITCH TO MIKHAIL . Sinusitis - Pt [...] in the nasal steroid allergy spray. . Asthma - chronic problem for this patient. We have reviewed chronic treatment strategy, symptom control, and plans for acute exacerbations. No changes today to the current treatment plan as the patient is stable, monitor for acute changes
--- OUTSIDE RECORDS SUMMARY | 2019-04-16 05:19 | XMS REPORT | CCD ---
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 Unknown Has never used illegal drugs 06/26/2011 Allergies, Adverse Reactions, Alerts Allergies, Adverse Reactions, Alerts data not found Past Medical History Illness Codes Condition Status Onset Date Resolved Date Sciatica Unknown Active 02/14/2017 Unknown Essential (primary) hypertension ICD-9: 401.9 ICD-10: I10 Active 03/23/2016 Unknown Low back pain ICD-9: 724.2 ICD-10: M54.5 Active 02/14/2017 Unknown Sciatica, right side ICD- 9: 724.3 ICD-10: M54.31 Active 02/14/2017 Unknown Acute recurrent maxillary sinusitis ICD-9: 461.0 ICD-10: J01.01 Active 08/23/2015 Unknown Cough ICD-9: 786.2 ICD-10: R05 Active 01/30/2017 Unknown Encounter for general adult medical examination without abnormal findings ICD-9: V70.9 ICD-10: Z00.00 Active 01/02/2017 Unknown Mild intermittent asthma with (acute) exacerbation ICD-9: 493.90 ICD-10: J45.21 Active 09/24/2015 Unknown Tinea corporis ICD-9: 110.5 ICD-10: B35.4 Active 12/29/2016 Unknown Encounter for immunization ICD-9: V04.81 ICD-10: Z23 Active 07/12/2016 Unknown Epistaxis ICD-9: 784.7 ICD-10: R04.0 Active 03/31/2016 Unknown Insomnia, unspecified ICD- 9: 780.52 ICD-10: G47.00 Active 03/23/2016 Unknown Mild intermittent asthma, uncomplicated ICD-9: 493.20 ICD-10: J45.20 Active 03/23/2016 Unknown Allergic rhinitis due to pollen ICD-9: 477.0 ICD-10: J30.1 Active 08/23/2015 Unknown Encounter for screening for malignant neoplasm of vagina ICD-9: V76.47 ICD-10: Z12.72 Active 06/11/2015 Unknown Pelvic and perineal pain ICD-9: FRL1997 ICD-10: R10.2 Active 06/11/2015 Unknown Well woman [...] Problems Condition Codes Effective Dates Condition Status Sciatica Unknown 02/14/2017 Active Essential (primary) hypertension ICD-9: 401.9 ICD-10: I10 03/23/2016 Active Low back pain ICD-9: 724.2 ICD-10: M54.5 02/14/2017 Active Sciatica, right side ICD- 9: 724.3 ICD-10: M54.31 02/14/2017 Active Acute recurrent maxillary sinusitis ICD-9: 461.0 ICD-10: J01.01 08/23/2015 Active Cough ICD-9: 786.2 ICD-10: R05 01/30/2017 Active Encounter for general adult medical examination without abnormal findings ICD-9: V70.9 ICD-10: Z00.00 01/02/2017 Active Mild intermittent asthma with (acute) exacerbation ICD-9: 493.90 ICD-10: J45.21 09/24/2015 Active Tinea corporis ICD-9: 110.5 ICD-10: B35.4 12/29/2016 Active Encounter for immunization ICD-9: V04.81 ICD-10: Z23 07/12/2016 Active Epistaxis ICD-9: 784.7 ICD-10: R04.0 03/31/2016 Active Insomnia, unspecified ICD- 9: 780.52 ICD-10: G47.00 03/23/2016 Active Mild intermittent asthma, uncomplicated ICD-9: 493.20 ICD-10: J45.20 03/23/2016 Active Allergic rhinitis due to pollen ICD-9: 477.0 ICD-10: J30.1 08/23/2015 Active Encounter for screening for malignant neoplasm of vagina ICD-9: V76.47 ICD-10: Z12.72 06/11/2015 Active Pelvic and perineal pain ICD-9: [id number] ICD-10: R10.2 06/11/2015 Active Well woman exam [...] Start Date Stop Date Status Fill Instructions paroxetine 20 mg tablet RxNorm: 6043290 TAKE 1/2 TABLET BY MOUTH EVERY DAY 05/03/2017 04/27/2018 Active gemfibrozil 600 mg tablet RxNorm: 943225 1 TABLET(S) PO TAKE ONE TABLET BY MOUTH TWICE DAILY 02/21/2017 11/17/2017 Active Celebrex 200 mg capsule RxNorm: 046883 1 Capsule(s) PO BID 02/08/2017 02/02/2018 Active Celebrex 200 mg capsule RxNorm: 527021 1 Capsule(s) PO BID TAKE 1 CAPSULE TWICE DAILY 02/02/2017 02/07/2017 Inactive ProAir RespiClick 90 mcg/actuation breath activated RxNorm: 3542602 1 -2 INH Q4H as needed ASTHMA 01/31/2017 05/30/2017 Active ketoconazole 2 % shampoo RxNorm: 865245 1 Application TOP daily x 1 week then weekly as needed for rash 01/31/2017 No Stop Date Active DC topical cream methylprednisolone 4 mg tablets in a dose pack RxNorm: 250967 1 Tablet(s) PO UD 01/30/2017 No Stop Date Active Kenalog 40 mg/mL suspension for injection RxNorm: 1940481 1.5 Milliliter(s) Inj 01/30/2017 01/30/2017 Inactive Levaquin 500 mg tablet RxNorm: 846214 1 Tablet(s) PO daily 01/30/2017 02/05/2017 Inactive Celebrex 200 mg capsule RxNorm: 928220 1 Capsule(s) PO BID TAKE 1 CAPSULE TWICE DAILY 01/30/2017 02/01/2017 Inactive ketoconazole 2 % shampoo RxNorm: 708935 1 Application TOP daily x 1 week then weekly as needed for rash 12/30/2016 01/30/2017 Inactive DC topical cream aspirin 81 mg tablet,delayed release RxNorm: 232226 1 Tablet(s) PO daily 12/29/2016 No Stop Date Active ketoconazole 2 % topical cream RxNorm: 947612 1 Application TOP daily x 1 week then weekly as needed for rash 12/29/2016 12/29/2016 Inactive Singulair 10 mg tablet RxNorm: 222013 Tablet(s) TAKE 1 TABLET DAILY 11/30/2016 11/23/2017 Active pantoprazole 40 mg tablet,delayed release RxNorm: 716393 Tablet(s) TAKE 1 TABLET DAILY 11/30/2016 11/23/2017 Active paroxetine 20 mg tablet RxNorm: 4329621 Tablet(s) TAKE ONE-HALF TABLET BY MOUTH EVERY DAY 11/25/2016 05/02/2017 Inactive paroxetine 20 mg tablet RxNorm: 7374713 Tablet(s) TAKE ONE-HALF TABLET BY MOUTH EVERY DAY 11/17/2016 11/24/2016 Inactive Levaquin 500 mg tablet RxNorm: 130863 1 Tablet(s) PO daily 10/11/2016 11/24/2016 Inactive pantoprazole 40 mg tablet,delayed release RxNorm: 814496 TAKE 1 TABLET DAILY 08/22/2016 11/29/2016 Inactive gemfibrozil 600 mg tablet RxNorm: 599573 1 TABLET(S) PO TAKE ONE TABLET BY MOUTH TWICE DAILY 05/06/2016 01/30/2017 Inactive temazepam 7.5 mg capsule RxNorm: 006622 1 Capsule(s) PO HS PRN 03/24/2016 No Stop Date Active Singulair 10 mg tablet RxNorm: 294434 Tablet(s) TAKE 1 TABLET DAILY 03/07/2016 11/29/2016 Inactive Singulair 10 mg tablet RxNorm: 793562 Tablet(s) TAKE 1 TABLET DAILY 03/07/2016 03/06/2016 Inactive pantoprazole 40 mg tablet,delayed release RxNorm: 415832 TAKE 1 TABLET DAILY 02/15/2016 08/12/2016 Inactive Celebrex 200 mg capsule RxNorm: 991704 1 Capsule(s) PO BID TAKE 1 CAPSULE TWICE DAILY 01/25/2016 01/17/2017 Inactive gemfibrozil 600 mg tablet RxNorm: 347246 1 TABLET(S) PO TAKE ONE TABLET BY MOUTH TWICE DAILY 11/10/2015 05/05/2016 Inactive Patient requests 90 days supply Levaquin 500 mg tablet RxNorm: 319469 1 Tablet(s) PO daily 09/29/2015 10/08/2015 Inactive albuterol sulfate 1.25 mg/3 mL solution for nebulization RxNorm: 333076 3 Milliliter(s) INH PRN as needed dyspnea 09/25/2015 No Stop Date Active Levaquin 500 mg tablet RxNorm: 346004 1 Tablet(s) PO daily 08/24/2015 09/02/2015 Inactive albuterol sulfate HFA 90 mcg/actuation aerosol inhaler RxNorm: 0973294 1-2 Puff(s) INH Q4 PRN as needed 08/24/2015 01/30/2017 Inactive sample and rX provided albuterol sulfate HFA 90 mcg/actuation aerosol inhaler RxNorm: 7212065 1-2 Puff(s) INH Q4 PRN as needed 08/24/2015 08/23/2015 Inactive sample and rX provided paroxetine 20 mg tablet RxNorm: 7296219 Tablet(s) TAKE ONE-HALF TABLET BY MOUTH EVERY DAY 08/21/2015 03/17/2016 Inactive pantoprazole 40 mg tablet,delayed release RxNorm: 500286 1 Tablet(s) PO daily 07/27/2015 07/26/2015 Inactive pantoprazole 40 mg tablet,delayed release RxNorm: 996298 1 Tablet(s) PO daily 07/27/2015 01/22/2016 Inactive gemfibrozil 600 mg tablet RxNorm: 149945 1 TABLET(S) PO TAKE ONE TABLET BY MOUTH TWICE DAILY 07/10/2015 11/09/2015 Inactive nystatin (bulk) 100 million unit powder RxNorm: 1 APPLICATION TOP TID 06/25/2015 07/15/2015 Inactive Kenalog 40 mg/mL suspension for injection RxNorm: 8955790 Milliliter(s) Inj 05/29/2015 05/29/2015 Inactive Keflex 500 mg capsule RxNorm: 264503 1 Capsule(s) PO TID 05/29/2015 06/07/2015 Inactive nystatin (bulk) 100 million unit powder RxNorm: 1 Application TOP TID 05/29/2015 06/18/2015 Inactive ceftriaxone 500 mg solution for injection RxNorm: 0472896 Inj 05/29/2015 05/29/2015 Inactive Fioricet 50 mg-325 mg-40 mg tablet RxNorm: 258421 1 Tablet(s) PO Q6 PRN as needed 04/20/2015 07/18/2015 Inactive Bactroban 2 % topical ointment RxNorm: 322683 1 TOP BID 03/26/2015 No Stop Date Active Align 4 mg capsule RxNorm: 997783 1 Capsule(s) PO daily 03/19/2015 12/28/2016 Inactive Singulair 10 mg tablet RxNorm: 327178 TAKE 1 TABLET DAILY 03/02/2015 02/24/2016 Inactive Bactroban 2 % topical ointment RxNorm: 808536 1 APPLICATION TOP BID 12/02/2014 12/11/2014 Inactive right nare ceftriaxone 500 mg solution for injection RxNorm: 195711 Inj 10/15/2014 10/15/2014 Inactive Keflex 500 mg capsule RxNorm: 202503 1 Capsule(s) PO BID 10/15/2014 10/28/2014 Inactive Kenalog 40 mg/mL suspension for injection RxNorm: 2254878 Milliliter(s) Inj 10/15/2014 10/15/2014 Inactive prednisone 20 mg tablet RxNorm: 730599 1 Tablet(s) PO daily 10/15/2014 10/24/2014 Inactive Tudorza Pressair 400 mcg/actuation breath activated RxNorm: 4410898 1 Puff(s) INH BID 10/15/2014 11/13/2014 Inactive gemfibrozil 600 mg tablet RxNorm: 381131 1 Tablet(s) PO TAKE ONE TABLET BY MOUTH TWICE DAILY 09/29/2014 06/25/2015 Inactive Celebrex 200 mg capsule RxNorm: 634984 1 Capsule(s) PO BID TAKE 1 CAPSULE TWICE DAILY 07/31/2014 07/25/2015 Inactive paroxetine 20 mg tablet RxNorm: 977501 TAKE ONE-HALF TABLET BY MOUTH EVERY DAY 07/15/2014 02/09/2015 Inactive Bactroban 2 % topical ointment RxNorm: 504400 1 Application TOP BID 04/10/2014 04/14/2014 Inactive right nare Singulair 10 mg tablet RxNorm: 631906 1 Tablet(s) PO daily TAKE 1 TABLET DAILY 02/27/2014 02/21/2015 Inactive Celebrex 200 mg capsule RxNorm: 202512 1 Capsule(s) PO BID TAKE 1 CAPSULE TWICE DAILY 02/27/2014 07/30/2014 Inactive ciprofloxacin 500 mg tablet RxNorm: 966271 1 Tablet(s) PO BID 02/17/2014 02/26/2014 Inactive prednisone 20 mg tablet RxNorm: 552692 1 Tablet(s) PO daily 02/17/2014 02/21/2014 Inactive Fioricet 50 mg-325 mg-40 mg tablet RxNorm: 933699 1 Tablet(s) PO Q6 PRN 02/17/2014 05/16/2014 Inactive Kenalog 40 mg/mL suspension for injection RxNorm: 7172890 Milliliter(s) Inj 02/17/2014 02/17/2014 Inactive Bactrim 400 mg-80 mg tablet RxNorm: 063188 1 Tablet(s) PO BID 12/25/2013 12/24/2013 Inactive Omnicef 300 mg capsule RxNorm: 951029 1 Capsule(s) PO BID 12/25/2013 01/03/2014 Inactive please dc the bactrim order. pt states she is allergic. Bactrim 400 mg-80 mg tablet RxNorm: 679584 1 Tablet(s) PO BID 12/25/2013 12/25/2013 Inactive gemfibrozil 600 mg tablet RxNorm: 063250 Tablet(s) PO TAKE ONE TABLET BY MOUTH TWICE DAILY 12/12/2013 09/28/2014 Inactive Rocephin 500 mg solution for injection RxNorm: 847641 Inj 12/05/2013 12/05/2013 Inactive Bactroban 2 % topical ointment RxNorm: 587873 1 Application TOP BID right nare 12/05/2013 12/11/2013 Inactive Keflex 500 mg capsule RxNorm: 936926 1 Capsule(s) PO BID 12/05/2013 12/11/2013 Inactive paroxetine 20 mg tablet RxNorm: 087029 Tablet(s) PO TAKE ONE-HALF TABLET BY MOUTH EVERY DAY 07/15/2013 07/14/2014 Inactive Influenza Virus Vaccine 0.5 mL RxNorm: IM 07/09/2013 07/09/2013 Inactive Singulair 10 mg tablet RxNorm: 495644 Tablet(s) PO TAKE 1 TABLET DAILY 05/30/2013 02/26/2014 Inactive Celebrex 200 mg capsule RxNorm: 589894 Capsule(s) PO TAKE 1 CAPSULE TWICE DAILY 04/13/2013 02/26/2014 Inactive Singulair 10 mg tablet RxNorm: 443804 1 Tablet(s) PO daily 02/28/2013 05/29/2013 Inactive gemfibrozil 600 mg tablet RxNorm: 217967 Tablet(s) PO TAKE ONE TABLET BY MOUTH TWICE DAILY 11/28/2012 12/11/2013 Inactive Rocephin 500 mg Solution for Injection RxNorm: 929029 1 Milliliter(s) Inj 10/23/2012 10/23/2012 Inactive paroxetine 20 mg tablet RxNorm: 675357 1/2 Tablet(s) PO daily 07/13/2012 07/14/2013 Inactive TAKE ONE-HALF TABLET BY MOUTH EVERY DAY Fioricet 50 mg-325 mg-40 mg tablet RxNorm: 625198 1 Tablet(s) PO Q6 PRN 04/17/2012 07/15/2012 Inactive gemfibrozil 600 mg tablet RxNorm: 913708 Tablet(s) PO 11/17/2011 11/27/2012 Inactive TAKE ONE TABLET BY MOUTH TWICE DAILY gemfibrozil 600 mg Tab RxNorm: 230359 1 Tablet(s) PO BID 11/16/2011 11/16/2011 Inactive MIDRIN 325 mg-65 mg-100 mg Cap RxNorm: 944207 1 Capsule(s) PO Q4-6H 09/15/2011 04/17/2012 Inactive max 8 tabs/24 hours Influenza Virus Vaccine 0.5 mL RxNorm: IM 07/05/2011 07/05/2011 Inactive Pulmicort Flexhaler 180 mcg/Inhalation Breath Activated RxNorm: 5850271 1 Puff(s) INH daily 06/27/2011 07/26/2011 Inactive Singulair 10 mg tablet RxNorm: 615070 1 Tablet(s) PO daily 06/27/2011 07/26/2011 Inactive Celebrex 200 mg capsule RxNorm: 668557 1 Capsule(s) PO BID 06/27/2011 04/12/2013 Inactive paroxetine 20 mg tablet RxNorm: 980353 1/2 Tablet(s) PO daily 06/27/2011 07/13/2012 Inactive gemfibrozil 600 mg Tab RxNorm: 456323 1 Tablet(s) PO BID 06/27/2011 11/15/2011 Inactive requests 90 day supply-refilled but needs labs amaury. vitamin B6-vitamin E-magnesium Oral RxNorm: Oral No Start Date Active Advil Oral RxNorm: Oral No Start Date Active Claritin 10 mg tablet RxNorm: 812976 1 Tablet(s) PO daily No Start Date Active Flexeril 5 mg Tab RxNorm: 111816 1/2-2 Tablet(s) PO PRN 1/2-1 po q 8 hours prn back pain or muscle spasms No Start Date Active folic acid Oral RxNorm: Oral No Start Date Active vitamin T60-sypzqzi B1 Oral RxNorm: Oral No Start Date Active chlordiazepoxide-clidinium 5 mg-2.5 mg Cap RxNorm: 818058 1 Capsule(s) PO PRN For IBS No Start Date Active Singulair 10 mg Tab RxNorm: 949320 1 Tablet(s) PO daily No Start Date 06/26/2011 Inactive Omnicef 300 mg capsule RxNorm: 432562 1 Capsule(s) PO BID No Start Date 12/24/2013 Inactive albuterol sulfate HFA 90 mcg/Actuation Aerosol Inhaler RxNorm: 8635611 1-2 Puff(s) INH Q4 PRN No Start Date 08/23/2015 Inactive sample and rX provided aspirin 81 mg Tab, Delayed Release RxNorm: 165437 1 Tablet(s) PO BID No Start Date 12/28/2016 Inactive Tudorza Pressair 400 mcg/actuation Breath Activated RxNorm: 7560496 1 Puff(s) INH BID No Start Date 10/14/2014 Inactive niacin ER 500 mg Tab RxNorm: 364166 1 Tablet(s) PO QHS No Start Date 02/27/2013 Inactive Celebrex 200 mg Cap RxNorm: 122375 1 Capsule(s) PO BID No Start Date 06/26/2011 Inactive loratadine 10 mg Tab RxNorm: 8485413 1 Tablet(s) PO daily No Start Date 02/27/2013 Inactive Nasonex 50 mcg/Actuation [place] RxNorm: 634651 2 [place] NASAL BID No Start Date 06/26/2011 Inactive Zithromax Z-Marty 250 mg Tab RxNorm: 867570 Tablet(s) PO No Start Date 07/11/2011 Inactive 2 tabs today, then tabs 2-5 daily Zithromax Z-Marty 250 mg tablet RxNorm: 303251 Tablet(s) PO UD No Start Date 04/21/2013 Inactive Tessalon Perles 100 mg Cap RxNorm: 638838 1 Capsule(s) PO PRN No Start Date 07/11/2011 Inactive albuterol sulfate HFA 90 mcg/Actuation Aerosol Inhaler RxNorm: 109434 Inhalation No Start Date 06/27/2011 Inactive Nasacort AQ 55 mcg Nasal [place] Aerosol RxNorm: 3220778 1 [place] NASAL PRN No Start Date 12/28/2016 Inactive gemfibrozil 600 mg Tab RxNorm: 744754 1 Tablet(s) PO BID No Start Date 06/26/2011 Inactive Pulmicort Flexhaler 180 mcg/Inhalation Breath Activated RxNorm: 6097151 1 INH daily No Start Date 06/26/2011 Inactive paroxetine 20 mg Tab RxNorm: 696719 1/2 Tablet(s) PO daily No Start Date 06/26/2011 Inactive MIDRIN 325 mg-65 mg-100 mg Cap RxNorm: 476161 1 Capsule(s) PO Q4-6H No Start Date 09/14/2011 Inactive max 8 tabs/24 hours beta carotene Oral RxNorm: Oral No Start Date 12/28/2016 Inactive Medication Administered Medication Codes Instructions Start Date Status Kenalog 40 mg/mL suspension for injection RxNorm: 7341710 1.5Milliliter 01/30/2017 No longer Active Kenalog 40 mg/mL suspension for injection RxNorm: 6304680 Milliliter 05/29/2015 No longer Active ceftriaxone 500 mg solution for injection RxNorm: 0062056 05/29/2015 No longer Active Kenalog 40 mg/mL suspension for injection RxNorm: 6377280 Milliliter 10/15/2014 No longer Active ceftriaxone 500 mg solution for injection RxNorm: 636446 10/15/2014 No longer Active Kenalog 40 mg/mL suspension for injection RxNorm: 0728270 Milliliter 02/17/2014 No longer Active Rocephin 500 mg solution for injection RxNorm: 670596 12/05/2013 No longer Active Influenza Virus Vaccine 0.5 mL RxNorm: 07/09/2013 No longer Active Rocephin 500 mg Solution for Injection RxNorm: 631014 1Milliliter 10/23/2012 No longer Active Influenza Virus Vaccine 0.5 mL RxNorm: 07/05/2011 No longer Active Immunizations Vaccine Codes Date Status Influenza CVX: 141 07/13/2016 completed Influenza CVX: 141 07/10/2015 completed Influenza CVX: 141 07/09/2013 completed PPD Unknown 06/11/2013 completed Influenza CVX: 141 07/05/2011 completed Influenza Unknown 06/28/2011 completed Tetanus/Diptheria Unknown 01/20/2011 completed Pneumococcal Unknown 11/18/2008 completed Assessments Condition Codes Effective Dates Low back pain ICD-10: M54.5 ICD-9: 724.2 02/14/2017 Essential (primary) hypertension ICD-10: I10 ICD-9: 401.9 02/14/2017 Sciatica, right side ICD-10: M54.31 ICD-9: 724.3 02/14/2017 Cough ICD-10: R05 ICD-9: 786.2 01/30/2017 Acute recurrent maxillary sinusitis ICD-10: J01.01 ICD-9: 461.0 01/30/2017 Encounter for general adult medical examination without abnormal findings ICD-10: Z00.00 ICD-9: V70.9 01/02/2017 Mild intermittent asthma with (acute) exacerbation ICD-10: J45.21 ICD-9: 493.90 12/29/2016 Tinea corporis ICD-10: B35.4 ICD-9: 110.5 12/29/2016 Encounter for immunization ICD-10: Z23 ICD-9: V04.81 07/13/2016 Epistaxis ICD-10: R04.0 ICD-9: 784.7 04/01/2016 Mild intermittent asthma, uncomplicated ICD-10: J45.20 ICD-9: 493.20 03/24/2016 Insomnia, unspecified ICD-10: G47.00 ICD-9: 780.52 03/24/2016 Allergic rhinitis due to pollen ICD-10: J30.1 ICD-9: 477.0 08/24/2015 VACCIN FOR INFLUENZA ICD-9: V04.81 07/10/2015 Well woman exam ICD-9: V70.0 06/12/2015 Pelvic and perineal pain ICD-10: R10.2 ICD-9: [id number] 06/12/2015 Encounter for screening for malignant neoplasm [...] Visit Reason For Visit Effective Dates Notes cough 02/14/2017 cough 01/31/2017 cough 01/30/2017 Annual [...] Observation Code Item Item Code Result Date Lipid Ord30 CHOL 163 mg/dL 12/27/2016 Lipid Ord30 HDL 63.0 mg/dl 12/27/2016 Lipid Ord30 TRIG 62 mg/dL 12/27/2016 Lipid Ord30 LDL 88 mg/dL 12/27/2016 Lipid Ord30 C/HDL 2.6 Ratio 12/27/2016 Tsh Ord6 hTSH II 2.47 uIU/mL 12/27/2016 Comp Metabolic Qtk904 NA 140 mEq/L 12/27/2016 Comp Metabolic Hdn761 K 4.0 mEq/L 12/27/2016 Comp Metabolic Hxg145 CL 105 mEq/L 12/27/2016 Comp Metabolic Rei411 CO2 28.0 mEq/L 12/27/2016 Comp Metabolic Fvm175 ANION GAP 11 12/27/2016 Comp Metabolic Dis540 GLUCOSE 102 mg/dL 12/27/2016 Comp Metabolic Mqx201 Creat 0.7 mg/dL 12/27/2016 Comp Metabolic Jac299 eGFR 81 ml/min/1.73m2 12/27/2016 Comp Metabolic Uwu860 BUN 15 mg/dL 12/27/2016 Comp Metabolic Cpu553 B/C Ratio 20.3 Ratio 12/27/2016 Comp Metabolic Ntt016 CALCIUM 10.0 mg/dL 12/27/2016 Comp Metabolic Mcf633 ALK PHOS 110 U/L 12/27/2016 Comp Metabolic Zse797 AST(SGOT) 20 U/L 12/27/2016 Comp Metabolic Gvh054 ALT(SGPT) 22 U/L 12/27/2016 Comp Metabolic Few191 BILI T 0.5 mg/dL 12/27/2016 Comp Metabolic Sfm598 ALBUMIN 4.7 g/dL 12/27/2016 Comp Metabolic Lst633 TPRO 7.2 g/dL 12/27/2016 Comp Metabolic Znd330 GLOB 2.5 g/dL 12/27/2016 Comp Metabolic Evm458 A/G Ratio 1.9 Ratio 12/27/2016 Comp Metabolic Ael475 Osmo 280 mOsmo 12/27/2016 Cbc With Differential [...] 31.9 pg 12/27/2016 Cbc With Differential Ord2 [place]% 8.6 % 12/27/2016 Cbc With Differential Ord2 [...] 3.60 K/ul 12/27/2016 Cbc With Differential Ord2 [place] ABS# 0.6 K/ul 12/27/2016 Cbc With Differential Ord2 Eos ABS# 0.8 K/ul 12/27/2016 Cbc With Differential Ord2 Baso ABS# 0.0 K/ul 12/27/2016 Cbc With Differential Ord2 WBC 7.53 K/ul 06/13/2016 Cbc With Differential Ord2 RBC 4.51 M/ul 06/13/2016 Cbc With Differential Ord2 HGB 14.3 g/dl 06/13/2016 Cbc With Differential Ord2 Neut% 34.3 % 06/13/2016 Cbc With Differential Ord2 HCT 42.2 % 06/13/2016 Cbc With Differential Ord2 MCV 93.6 fl 06/13/2016 Cbc With Differential Ord2 Lymph% 43.3 % 06/13/2016 Cbc With Differential Ord2 MCH 31.7 pg 06/13/2016 Cbc With Differential Ord2 [place]% 8.4 % 06/13/2016 Cbc With Differential Ord2 [...] 3.26 K/ul 06/13/2016 Cbc With Differential Ord2 [place] ABS# 0.6 K/ul 06/13/2016 Cbc With Differential Ord2 Eos ABS# 1.0 K/ul 06/13/2016 Cbc With Differential Ord2 Baso ABS# 0.0 K/ul 06/13/2016 Comp Metabolic Eej793 NA 141 mEq/L 03/25/2016 Comp Metabolic Obs531 K 4.0 mEq/L 03/25/2016 Comp Metabolic Hwz600 CL 103 mEq/L 03/25/2016 Comp Metabolic Owf015 CO2 28.0 mEq/L 03/25/2016 Comp Metabolic Aaa506 ANION GAP 14 03/25/2016 Comp Metabolic Dsf537 GLUCOSE 91 mg/dL 03/25/2016 Comp Metabolic Zsx745 Creat 0.8 mg/dL 03/25/2016 Comp Metabolic Nhr169 eGFR 70 ml/min/1.73m2 03/25/2016 Comp Metabolic Fon103 BUN 16 mg/dL 03/25/2016 Comp Metabolic Ica988 B/C Ratio 19.0 Ratio 03/25/2016 Comp Metabolic Kwn241 CALCIUM 9.8 mg/dL 03/25/2016 Comp Metabolic Gtc176 ALK PHOS 111 U/L 03/25/2016 Comp Metabolic Ctl573 AST(SGOT) 19 U/L 03/25/2016 Comp Metabolic Ccy102 ALT(SGPT) 19 U/L 03/25/2016 Comp Metabolic Mny038 BILI T 0.6 mg/dL 03/25/2016 Comp Metabolic Tel155 ALBUMIN 4.6 g/dL 03/25/2016 Comp Metabolic Jmn746 TPRO 7.4 g/dL 03/25/2016 Comp Metabolic Nmu560 GLOB 2.8 g/dL 03/25/2016 Comp Metabolic Dtc411 A/G Ratio 1.7 Ratio 03/25/2016 Comp Metabolic Beb974 Osmo 282 mOsmo 03/25/2016 Tsh Ord6 hTSH [...] 40.9 % 03/25/2016 Cbc With Differential Ord2 MCV 94.0 fl 03/25/2016 Cbc With Differential Ord2 Lymph% 39.9 % 03/25/2016 Cbc With Differential Ord2 MCH 32.0 pg 03/25/2016 Cbc With Differential Ord2 [place]% 9.4 % 03/25/2016 Cbc With Differential Ord2 [...] 3.20 K/ul 03/25/2016 Cbc With Differential Ord2 [place] ABS# 0.8 K/ul 03/25/2016 Cbc With Differential Ord2 Eos ABS# 0.8 K/ul 03/25/2016 Cbc With Differential Ord2 Baso ABS# 0.0 K/ul 03/25/2016 GFR CALC 0117009 GFR AA >60 ML/MIN 03/14/2012 GFR CALC 8168015 GFR NON-AA >60 ML/MIN 03/14/2012 TSH 7336608 TSH 2.609 uIU/ML 03/14/2012 LIPID GRP HDL [...] 20280419 ALBUMIN 4.8 GM/DL 03/14/2012 CHEM 14 0692987 CHLORIDE 106 MMOL/L 03/14/2012 CHEM 14 20280419 BILI TOT 0.6 MG/DL 03/14/2012 CHEM 14 20280419 ALK PHOS 115 U/L 03/14/2012 CHEM 14 20280419 SODIUM 141 MMOL/L 03/14/2012 CHEM 14 20280419 CREATININE 0.78 MG/DL 03/14/2012 CHEM 14 8825622 CALCIUM 9.9 MG/DL 03/14/2012 CHEM 14 20280419 POTASSIUM 4.2 MMOL/L 03/14/2012 CHEM 14 20280419 PROT TOT 7.4 GM/DL 03/14/2012 CHEM 14 7141937 GLUCOSE 91 MG/DL 03/14/2012 CHEM 14 9868444 BICARB 27 MMOL/L 03/14/2012 CHEM 14 1566854 ANION GAP 8 MEQ/L 03/14/2012 CBC 2917322 WBC 5.9 10e9/L 03/14/2012 CBC 9460286 RBC 4.62 10e12/L 03/14/2012 CBC 8893170 HGB 14.5 g/dL 03/14/2012 CBC 8829807 HCT DET 42.4 % 03/14/2012 CBC 9815029 MCV 91.8 fL 03/14/2012 CBC 7134936 MCH 31.4 pg 03/14/2012 CBC 8580794 MCHC 34.2 g/dL 03/14/2012 CBC 1015363 PLT 370 10e9/L 03/14/2012 CBC 4823881 MPV 10.2 fL 03/14/2012 CBC 9171645 NANO % 36.6 % 03/14/2012 CBC 6021497 LY % 47.6 % 03/14/2012 CBC 1886799 MON % 10.0 % 03/14/2012 CBC 6952433 EOS % 5.6 % 03/14/2012 CBC 8938695 BASO % 0.2 % 03/14/2012 CBC 8532373 RDW 12.3 % 03/14/2012 CBC 1443353 ABS NANO 2.16 10e9/L 03/14/2012 CBC 8371531 ABS LYMPH 2.81 10e9/L 03/14/2012 CBC [id number] ABS MONO 0.59 10e9/L 03/14/2012 CBC [id number] ABS EOS 0.33 10e9/L 03/14/2012 CBC [id number] ABS BASO 0.01 10e9/L 03/14/2012 CBC [id number] RDW-SD 40.4 fL 03/14/2012 Review of Systems System Result Effective Dates Constitutional No chills 02/14/2017 Constitutional No insomnia [...] unsteadiness 09/25/2013 None Full Exam - General 1995 Neurologic cranial nerves Overall: crainial nerves 2 [...] level 06/27/2011 None Procedures Procedure Codes Date TRIAMCINOLONE ACET INJ NOS CPT-4: [id number] 01/30/2017 PPPS, SUBSEQ VISIT CPT-4: Y1752Sxwtbma 01/02/2017 ADMIN INFLUENZA VIRUS VAC CPT-4: Y3844Qnnvrnd 07/13/2016 FLU VACC PRSV FREE INC ANTIG CPT-4: 44550Vhgxusl 07/13/2016 ADMIN INFLUENZA VIRUS VAC CPT-4: P1182Rzyivdd 07/10/2015 FLU VACC 4 KARI 3 YRS PLUS IM Formatting Model/CDA Sections, Assigned to/Juana Ji CT: [id number] CPT-4: 56078Cvobqox 07/10/2015 TRIAMCINOLONE ACET INJ NOS CPT-4: H3235Yqfvfes 05/29/2015 ROCEPHIN, PER 250 MG CPT-4: Y0060Oamgmce 05/29/2015 THER/PROPH/DIAG INJ SC/IM CPT-4: 19095Ufbkoqo 10/15/2014 TRIAMCINOLONE ACET INJ NOS CPT-4: W6549Klzoqaf 10/15/2014 ROCEPHIN, PER 250 MG CPT-4: C1177Vpzumby 10/15/2014 THER/PROPH/DIAG INJ SC/IM CPT-4: 41458Qmyefkr 02/17/2014 TRIAMCINOLONE ACET INJ NOS CPT-4: J1428Aibeism 02/17/2014 ROCEPHIN, PER 250 MG CPT-4: C0521Rnmfbmr 12/05/2013 ADMIN INFLUENZA VIRUS VAC CPT-4: F0895Apactef 07/09/2013 FLULAVAL VACC, 3 YRS & >, IM CPT-4: E4726Faztpak 07/09/2013 ROCEPHIN, PER 250 MG CPT-4: L0004Ycyolcs 10/23/2012 PRESCRIP TRANSMIT VIA ERX SY CPT-4: K6381Tuiuazk 10/23/2012 ROUTINE VENIPUNCTURE CPT-4: 74228Zpoozeb 03/14/2012 ADMIN INFLUENZA VIRUS VAC CPT-4: F3484Ytjdvns 07/05/2011 FLULAVAL VACC, 3 YRS & >, IM CPT-4: Q5992Gddwuws 07/05/2011 ROUTINE VENIPUNCTURE CPT-4: 06655Nbvknnm 06/28/2011 PRESCRIP TRANSMIT VIA ERX SY CPT-4: G9584Htndbzf 06/27/2011 Vital Signs Date Vital 02/14/2017 Blood Pressure 1: 126/72 Code: 8480-6 Heart Rate 1: 76 bpm Height: 5'2" SpO2: 97% Weight: 01/31/2017 Blood Pressure 1: 154/80 Code: 8480-6 BMI: 32.0 Code: 63687-6 Heart Rate 1: 81 bpm Height: 5'2" SpO2: 97% Weight: 175 lbs 01/30/2017 Blood Pressure 1: 136/78 Code: 8480-6 Heart Rate 1: 92 bpm Height: 5'2" SpO2: 96% Temperature: 37.4 (C) / 99.3 (F) Weight: 01/02/2017 Blood Pressure 1: 146/66 Code: 8480-6 BMI: 31.8 Code: 63104-9 Heart Rate 1: 81 bpm Height: 5'2" SpO2: 98% Weight: 174 lbs 12/29/2016 Blood Pressure 1: 140/78 Code: 8480-6 BMI: 31.8 Code: 51116-9 Heart Rate 1: 88 bpm Height: 5'2" SpO2: 97% Weight: 174 lbs 03/24/2016 Blood Pressure 1: 132/88 Code: 8480-6 BMI: 31.6 Code: 21158-1 Heart Rate 1: 91 bpm Height: 5'2" SpO2: 99% Weight: 173 lbs 09/25/2015 Blood Pressure 1: 112/60 Code: 8480-6 BMI: 31.3 Code: 29471-1 Heart Rate 1: 85 bpm Height: 5'2" SpO2: 97% Weight: 171 lbs 08/24/2015 Blood Pressure 1: 142/60 Code: 8480-6 BMI: 30.9 Code: 82058-2 Heart Rate 1: 94 bpm Height: 5'2" SpO2: 97% Weight: 169 lbs 06/12/2015 Blood Pressure 1: 122/64 Code: 8480-6 BMI: 31.1 Code: 37799-2 Heart Rate 1: 91 bpm Height: 5'2" SpO2: 97% Weight: 170 lbs 05/29/2015 Blood Pressure 1: 150/78 Code: 8480-6 BMI: 31.6 Code: 20292-8 Heart Rate 1: 79 bpm Height: 5'2" SpO2: 93% Weight: 173 lbs 03/26/2015 Blood Pressure 1: 124/82 Code: 8480-6 BMI: 31.8 Code: 28132-4 Heart Rate 1: 80 bpm Height: 5'2" Respiratory Rate: 20 bpm Weight: 174 lbs 03/17/2015 Blood Pressure 1: 128/78 Code: 8480-6 BMI: 31.8 Code: 77464-6 Heart Rate 1: 84 bpm Height: 5'2" Respiratory Rate: 20 bpm Weight: 174 lbs 10/15/2014 Blood Pressure 1: 130/64 Code: 8480-6 BMI: 32.6 Code: 60786-3 Heart Rate 1: 80 bpm Height: 5'2" Weight: 178 lbs 04/10/2014 Blood Pressure 1: 128/70 Code: 8480-6 BMI: 31.6 Code: 41704-8 Heart Rate 1: 80 bpm Height: 5'2" Weight: 173 lbs 02/17/2014 Blood Pressure 1: 108/58 Code: 8480-6 BMI: 32.0 Code: 24136-9 Heart Rate 1: 80 bpm Height: 5'2" Temperature: 37.4 (C) / 99.3 (F) Weight: 175 lbs 12/05/2013 Blood Pressure 1: 144/80 Code: 8480-6 Heart Rate 1: 72 bpm SpO2: 98% Temperature: 36.9 (C) / 98.4 (F) Weight: 177 lbs 09/25/2013 Blood Pressure 1: 136/82 Code: 8480-6 BMI: 32.7 Code: 22143-5 Heart Rate 1: 84 bpm Height: 5'2" Weight: 179 lbs 07/09/2013 Blood Pressure 1: 144/70 Code: 8480-6 BMI: 32.0 Code: 04993-5 Heart Rate 1: 76 bpm Height: 5'2" Weight: 175 lbs 2013 Blood Pressure 1: 128/72 Code: 8480-6 BMI: 31.8 Code: 10595-8 Heart Rate 1: 68 bpm Height: 5'2" Weight: 174 lbs 03/22/2013 Blood Pressure 1: 128/68 Code: 8480-6 BMI: 31.8 Code: 95423-3 Heart Rate 1: 68 bpm Height: 5'2" Weight: 174 lbs 02/28/2013 Blood Pressure 1: 128/72 Code: 8480-6 BMI: 31.5 Code: 68202-9 Heart Rate 1: 80 bpm Height: 5'2" Weight: 172 lbs 10/23/2012 Blood Pressure 1: 124/78 Code: 8480-6 Heart Rate 1: 68 bpm Temperature: 36.8 (C) / 98.2 (F) Weight: 172 lbs 03/08/2012 Blood Pressure 1: 124/68 Code: 8480-6 Heart Rate 1: 80 bpm Weight: 171 lbs 09/28/2011 Blood Pressure 1: 112/58 Code: 8480-6 BMI: 31.6 Code: 95332-1 Heart Rate 1: 76 bpm Height: 5'2" Respiratory Rate: 16 bpm Weight: 173 lbs 06/27/2011 Blood Pressure 1: 117/61 Code: 8480-6 BMI: 30.4 Code: 39502-1 Heart Rate 1: 86 bpm Height: 5'3" Weight: 171 lbs 8 oz Functional Status No Functional Status data History of Present Illness Symptom Name Status Result Effective Date Notes cough Quality acute 02/14/2017 None cough Quality [...] 03/08/2012 Works 3 days per week at [employer], is retired osteoarthritis Frequency of Episodes unchanged [...] data Encounters Encounter Performer Location Codes Date ([id number]) 30263 EST. PATIENT, LEVEL III Diagnosis: Essential (primary) hypertension[ICD10: I10] Diagnosis: Low back pain[ICD10: M54.5] Diagnosis: Sciatica, right side[ICD10: M54.31] Deneen Rosenberg MD, [facility] CPT- 4: 72837 02/14/2017 ([id number]) 76304 EST. PATIENT, LEVEL III Diagnosis: Essential (primary) hypertension[ICD10: I10] Deneen Rosenberg MD, [facility] CPT-4: 45060 01/31/2017 ([id number]) 68335 EST. PATIENT, LEVEL III Diagnosis: Cough[ICD10: R05] Diagnosis: Acute recurrent maxillary sinusitis[ICD10: J01.01] Lalitha Rosenberg MD, [facility] CPT-4: 24251 01/30/2017 ([id number]) 21238 EST. PATIENT, LEVEL III Diagnosis: Essential (primary) hypertension[ICD10: I10] Diagnosis: Mild intermittent asthma with (acute) exacerbation[ICD10: J45.21] Diagnosis: Tinea corporis[ICD10: B35.4] Deneen Rosenberg MD, [facility] CPT-4: 64280 12/29/2016 ([id number]) Miscellaneous no charge Diagnosis: Epistaxis[ICD10: R04.0] Chastity Rosenberg MD, [facility] CPT-4: 06626 04/01/2016 ([id number]) 29478 EST. PATIENT, LEVEL IV Diagnosis: Essential (primary) hypertension[ICD10: I10] Diagnosis: Mild intermittent asthma, uncomplicated[ICD10: J45.20] Diagnosis: Insomnia, unspecified[ICD10: G47.00] Lalitha Rosenberg MD, [facility] CPT-4: 75125 03/24/2016 28904 EST. PATIENT, LEVEL III Diagnosis: Mild intermittent asthma with (acute) exacerbation[ICD10: J45.21] Diagnosis: Epistaxis[ICD10: R04.0] Chastity Rosenberg MD, [facility] CPT-4: 10038 09/25/2015 ([id number]) 86415 EST. PATIENT, LEVEL III Diagnosis: Acute recurrent maxillary sinusitis[ICD10: J01.01] Diagnosis: Allergic rhinitis due to pollen[ICD10: J30.1] Lalitha Rosenberg MD, [facility] CPT-4: 26198 08/24/2015 ([id number]) 96583 EST. PATIENT, LEVEL IV Diagnosis: Well woman exam[ICD9: V70.0] Diagnosis: Encounter for screening for malignant neoplasm of vagina[ICD10: Z12.72] Diagnosis: Pelvic and perineal pain[ICD10: R10.2] Lalitha Rosenberg MD, [facility] CPT-4: 50096 06/12/2015 ([id number]) 32589 EST. PATIENT, LEVEL III Diagnosis: Tinea corporis[ICD9: 110.5] Diagnosis: ACUTE MAXILLARY SINUSITIS[ICD9: 461.0] Lalitha Rosenberg MD, [facility] CPT-4: 37797 05/29/2015 ([id number]) 75816 EST. PATIENT, LEVEL IV Diagnosis: Skin tag[ICD9: 701.9] Diagnosis: Seborrheic keratoses[ICD9: 702.19] Diagnosis: Comedone[ICD9: 706.1] Diagnosis: IMPACTED CERUMEN[ICD9: 380.4] Rosemarie Rosenberg MD, [facility] CPT-4: 80439 03/26/2015 ([id number]) 99274 EST. PATIENT, LEVEL IV Diagnosis: ESSENTIAL HYPERTENSION[ICD9: 401.9] Diagnosis: HYPERLIPIDEMIA[ICD9: 272.4] Diagnosis: Fatigue[ICD9: 780.79] Diagnosis: INSECT BITE HIP/LEG[ICD9: 916.4] Rosemarie Rosenberg MD, [facility] CPT-4: 89310 03/17/2015 ([id number]) 80091 EST. PATIENT, LEVEL IV Diagnosis: Acute bronchitis[ICD9: 466.0] Diagnosis: MALAISE AND FATIGUE[ICD9: 780.79] Diagnosis: COUGH[ICD9: 786.2] Diagnosis: CHRONIC OBSTRUCTIVE ASTHMA WITH EXACERBATION[ICD9: 493.22] Deneen Rosenberg MD, [facility] CPT-4: 35826 10/15/2014 ([id number]) 74465 EST. PATIENT, LEVEL III Diagnosis: Acute anterior epistaxis[ICD9: 784.7] Diagnosis: ESSENTIAL HYPERTENSION[ICD9: 401.9] Lalitha Rosenberg MD, [facility] CPT-4: 29822 04/10/2014 ([id number]) 25793 EST. PATIENT, LEVEL III Diagnosis: Acute bronchitis[ICD9: 466.0] Diagnosis: COUGH[ICD9: 786.2] Diagnosis: Nasal congestion[ICD9: 478.19] Deneen Rosenberg MD, [facility] CPT-4: 27154 02/17/2014 ([id number]) 07931 EST. PATIENT, LEVEL III Diagnosis: ACUTE SINUSITIS[ICD9: 461.9] Lalitha Rosenberg MD, [facility] CPT-4: 66009 12/05/2013 ([id number]) 46687 EST. PATIENT, LEVEL IV Diagnosis: HYPERLIPIDEMIA[ICD9: 272.4] Diagnosis: CHRONIC OBSTRUCTIVE ASTHMA[ICD9: 493.20] Diagnosis: SLEEP APNEA NOS[ICD9: 780.57] Diagnosis: GENERAL OSTEOARTHROSIS-MULT[ICD9: 715.09] Deneen Rosenberg MD, [facility] CPT-4: 95793 09/25/2013 ([id number]) 13893 EST. PATIENT, LEVEL III Diagnosis: CHRONIC OBSTRUCTIVE ASTHMA[ICD9: 493.20] Deneen Rosenberg MD, [facility] CPT-4: 57724 07/09/2013 ([id number]) Miscellaneous no charge Diagnosis: CHRONIC OBSTRUCTIVE ASTHMA[ICD9: 493.20] Deneen Rosenberg MD, [facility] CPT-4: 53251 06/11/2013 ([id number]) 13140 EST. PATIENT, LEVEL IV Diagnosis: CHRONIC OBSTRUCTIVE ASTHMA[ICD9: 493.20] Diagnosis: Sleep apnea[ICD9: 780.57] [facility] CPT-4: 83036 2013 ([id number]) 75407 EST. PATIENT, LEVEL IV Diagnosis: CHRONIC OBSTRUCTIVE ASTHMA[ICD9: 493.20] Diagnosis: OSTEOARTH NOS-UNSPEC[ICD9: 715.90] Diagnosis: MALAISE AND FATIGUE[ICD9: 780.79] [facility] CPT- 4: 19819 03/22/2013 ([id number]) 37865 EST. PATIENT, LEVEL IV Diagnosis: HYPERLIPIDEMIA[ICD9: 272.4] Diagnosis: OSTEOARTH NOS-UNSPEC[ICD9: 715.90] Diagnosis: MALAISE AND FATIGUE[ICD9: 780.79] Deneen Rosenberg MD, [facility] CPT- 4: 05409 02/28/2013 ([id number]) 77791 EST. PATIENT, LEVEL III Diagnosis: ACUTE SINUSITIS[ICD9: 461.9] Diagnosis: COUGH[ICD9: 786.2] Lalitha Rosenberg MD, [facility] CPT-4: 57717 10/23/2012 ([id number]) 62911 EST. PATIENT, LEVEL IV Diagnosis: ESSENTIAL HYPERTENSION[SNOMED: 20628718] Diagnosis: HYPERLIPIDEMIA[ICD9: 272.4] Diagnosis: CHRONIC OBSTRUCTIVE ASTHMA[ICD9: 493.20] [facility] CPT-4: 06750 03/08/2012 ([id number]) 81903 EST. PATIENT, LEVEL IV Diagnosis: CHRONIC OBSTRUCTIVE ASTHMA[ICD9: 493.20] Diagnosis: Primary generalized (osteo)arthritis[ICD9: 715.09] Diagnosis: PAIN IN LIMB[ICD9: 729.5] [facility] CPT-4: 09840 09/28/2011 96145 EST. PATIENT, LEVEL IV Diagnosis: ACUTE SINUSITIS[ICD9: 461.9] Diagnosis: Asthma[ICD9: 493.90] Diagnosis: Osteoarthritis[ICD9: 715.90] Diagnosis: Hyperlipidemia[ICD9: 272.4] Lalitha Rosenberg MD, [facility] CPT-4: 71556 06/27/2011 Plan of Care Planned Activity Notes Codes Status Date Visit Plan: Hypertension - well controlled - continue with current medications, continue with no added salt diet. Pt has been encouraged to exercise daily.The pt has been advised to call the office if there are any acute concerns about change in blood pressure readings at home.Sciatica- exercises discussed with the patient, pt to continue with antiinflammatories. Pt is to call if the symptoms do not improve or if they worsen. 02/14/2017 Appointment: Deneen Rosenberg WPtel: [phone] [facility] [place] (15 min) Moderate 02/14/2017 Patient Education: Patient Medication Summary Completed 02/14/2017 Care Plan: Referral Order SNOMED-CT : [id number] Pending 02/14/2017 Appointment: Deneen Rosenberg WPtel: [facility] [place] (15 min) Moderate 02/01/2017 Visit Plan: Hypertension - well controlled - continue with current medications, continue with no added salt diet. Pt has been encouraged to exercise daily.The pt has been advised to call the office if there are any acute concerns about change in blood pressure readings at home.Cough - improved from yesterday. 01/31/2017 Appointment: Deneen Rosenberg WPtel: [facility] [place] (15 min) Moderate 01/31/2017 Patient Education: Patient Medication Summary Completed 01/31/2017 Patient Education: Obesity Completed 01/31/2017 Patient Education: Hypertension Completed 01/31/2017 Visit Plan: Sinusitis - Pt has acute infection - pain in face, maxillary region, Pt informed to use decongestant, RX given to patient, sinus rinses also recommended. Call if symptoms do not show improvement. 01/30/2017 Appointment: Lalitha Alcala WPtel: [facility]3 [phone] [place] (15 min) Moderate 01/30/2017 Patient Education: [...] risk and to maintain independece in the home.Today we discussed the need for the patient [...] diet. Pt has been encouraged to exercise daily.The pt has been advised to call the office if there are any acute concerns about change in blood pressure readings at home.Asthma - chronic - continue with current treatment.Rash - Ketoconazole shampoo. 12/29/2016 Appointment: [facility] Rosen[facility] [phone] [facility] (15 min) Moderate 12/29/2016 Patient Education: Patient Medication Summary Completed 12/29/2016 Patient Education: Obesity Completed 12/29/2016 Patient Education: Hypertension Completed 12/29/2016 Patient Education: Patient Medication Summary Completed 12/26/2016 Appointment: Injection 07/13/2016 Patient Education: Patient Medication Summary Completed 07/13/2016 Visit Plan: Pt went to ED from office, stating she does not think she will be able to get to her ENT in [place]. 04/01/2016 App[facility]ment[phone] (30 min) Complex 04/01/2016 Patient Education: Patient Medication Summary Completed 04/01/2016 Visit Plan: Hypertension - well controlled - continue with current medications, continue with no added salt diet. Pt has been encouraged to exercise daily.The pt has been advised to call the office if there are any acute concerns about change in blood pressure readings at home.Asthma - chronic problem for this patient. We have reviewed chronic treatment strategy, symptom control, and plans for acute exacerbations. No changes today to the current treatment plan as the patient is stable, monitor for acute changes. Restart tudorza Insomnia - Pt has been advised to increase the light in the house during the day, and start dimming the lights during the evening hours.Pt has been advised to cut out caffeine after 5pm.Daytime napping worsens night time insomnia. Refill temazepam to use as needed when traveling 03/24/2016 Appointment: Lalitha Alcala WPtel: [address] [place], [place] [phone] (30 min) Complex 03/24/2016 Patient Education: Patient [...] recommended. Call if symptoms do not show improvement.Allergies - chronic - recommended pt to use allergy medication as prescribed. Pt has been counseled as to the appropriate use of the medication. Pt to call if allergy symptoms are not controlled with the medication.If using nasal spray, instructions as follows: Nasal [...] the next year, otherwise, RTC yearly or prn.Vaginal dryness-samples of estrace cream 06/12/2015 Visit Plan: Well Adult Female - exam completed. Pt will be called with results of her testing. She was advised to continue with yearly annual exams. Call if any abnormal gynecologic issues during the next year, otherwise, RTC yearly or prn.Vaginal dryness-samples of estrace cream 06/12/2015 Visit Plan: Well Adult Female - exam completed. Pt will be called with results of her testing. She was advised to continue with yearly annual exams. Call if any abnormal gynecologic issues during the next year, otherwise, RTC yearly or prn.Vaginal dryness-samples of estrace cream 06/12/2015 Visit Plan: Well Adult Female - exam completed. Pt will be called with results of her testing. She was advised to continue with yearly annual exams. Call if any abnormal gynecologic issues during the next year, otherwise, RTC yearly or prn.Vaginal dryness-samples of estrace cream 06/12/2015 Visit Plan: Well Adult Female - exam completed. Pt will be called with results of her testing. She was advised to continue with yearly annual exams. Call if any abnormal gynecologic issues during the next year, otherwise, RTC yearly or prn.Vaginal dryness-samples of estrace cream 06/12/2015 Visit Plan: Well Adult Female - exam completed. Pt will be called with results of her testing. She was advised to continue with yearly annual exams. Call if any abnormal gynecologic issues during the next year, otherwise, RTC yearly or prn.Vaginal dryness-samples of estrace cream 06/12/2015 Appointment: (30 min) Complex 06/12/2015 Patient Education: Patient Medication Summary Completed 06/12/2015 Care Plan: PAP Pending 06/12/2015 Visit Plan: Sinusitis - Pt has acute infection - pain in face, maxillary region, Pt informed to use decongestant, RX given to patient, sinus rinses also recommended. Call if symptoms do not show improvement.Rocephin and kenalog injections today in the office Tinea-nystatin powder as directed-call if rash does not resolve or if any worse 05/29/2015 Appointment: (15 min) Moderate 05/29/2015 Patient Education: Patient Medication Summary Completed 05/29/2015 Visit Plan: Cerumen Impaction - The impacted cerumen was removed with the use of water pick. The patient tolerated the procedure without incident and had improvement in hearingSkin tag- Removed. Apply Bactroban BID for 1 weekSeborrheic Keratoses- Multiple spots frozen to left lower [...] diet. Pt has been encouraged to exercise daily.The pt has been advised to call the office if there are any acute concerns about change in blood pressure readings at home.Hyperlipidemia - Pt to have labs drawn in [...] and to assure normal liver response to medications.Patient provided with mammogram order. 03/17/2015 Visit Plan: Hypertension - well controlled - continue with current medications, continue with no added salt diet. Pt has been encouraged to exercise daily.The pt has been advised to call the office if there are any acute concerns about change in blood pressure readings at home.Hyperlipidemia - Pt to have labs drawn in [...] and to assure normal liver response to medications.Patient provided with mammogram order. 03/17/2015 Visit Plan: Hypertension - well controlled - continue with current medications, continue with no added salt diet. Pt has been encouraged to exercise daily.The pt has been advised to call the office if there are any acute concerns about change in blood pressure readings at home.Hyperlipidemia - Pt to have labs drawn in [...] and to assure normal liver response to medications.Patient provided with mammogram order. 03/17/2015 Patient Education: Patient Medication Summary Completed 03/17/2015 Patient Education: Hypertension Completed 03/17/2015 Care Plan: COMPLETE CBC [facility]ATED [facility] : 88186-4 Ordered 03/17/2015 Visit Plan: Asthma EXACERBATION - [...] symptoms are beyond acute control with rescue medications.We have reviewed chronic treatment strategy, symptom control, and plans for acute exacerbations. No changes today to the current treatment plan as the patient is stable, monitor for acute changes.Bronchitis - acute case of bronchitis identified. Pt has been given antibiotics, breathing treatments as appropriate, and pt has been instructed to call if symptoms are not improved, or if symptoms acutely worsen. 10/15/2014 Appointment: Deneen Rosenberg WPtel: [address] [place], [place] [id number] [facility] 10/15/2014 Patient Education: Patient Medication Summary [...] show improvement. 12/05/2013 Appointment: Lalitha Alcala WPtel: [phone] [facility] [place] [address] 12/05/2013 Patient Education: Patient Medication Summary Completed 12/05/2013 Appointment: Deneen Rosenberg WPtel: [phone] [facility] Follow up 10/01/2013 Visit Plan: Hyperlipidemia [...] and to assure normal liver response to medications.Chronic Asthma- chronic problem for this patient. We have reviewed chronic treatment strategy, symptom control, and plans for acute exacerbations. No changes today to the current treatment plan as the patient is stable, monitor for acute changes. Arthritis- occasionally uncontrolled symptoms- recommend pt to take antiinflammatory as directed for pain control.Use tylenol for break through pain symptoms.Sleep apnea - pt is not interested in CPAP, pt to call if she starts having problems and desires to consider cpap. 09/25/2013 Appointment: [facility] Rosenberg [facility]el[facility] [phone] [facility] [place] Follow up 09/25/2013 Patient Education: Patient Medication Summary Completed 09/25/2013 Visit Plan: Asthma - chronic problem for this patient. We have reviewed chronic treatment strategy, symptom control, and plans for acute exacerbations. No changes today to the current treatment plan as the patient is stable, monitor for acute changes 07/09/2013 Appointment: Deneen Rosenberg WPtel: [facility]5 [facility] Follow up 07/09/2013 Patient Education: Patient Medication Summary Completed 07/09/2013 Appointment: Deneen Rosenberg WPtel: [facility]4 [facility] Follow up 07/01/2013 Appointment: Lalitha Alcala WPtel: [facility]7 [phone] Lab Draw 06/11/2013 Patient Education: Patient Medication Summary Completed 06/11/2013 Visit Plan: COPD - chronic problem for this patient. We have reviewed chronic treatment strategy, symptom control, and plans for acute exacerbations. No changes today to the current treatment plan as the patient is stable, monitor for acute changes.Will start on symbicort. Sleep apnea with over 53 events per hour per Dr. Peraza's report. He attempted to get the pt to agree with starting a trial of CPAP, but she flatly refused.She states that she will NOT use CPAP, but will consider a trial of humidified oxygen as Dr. Peraza felt that oxygen, although won't treat her sleep apnea, 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 2013 Appointment: Deneen Rosenberg WPtel: [facility] [place] Other 2013 Patient Education: Patient Medication Summary Completed 2013 Visit Plan: Insomnia and possible sleep apnea - Pt has history of asthma - I have recommended that she have several tests perfored, the pt was hesitant at first, but: PT AGREED TO SLEEP STUDY AND PFT'S.WILL GIVE RX FOR MEDICATION TO HELP WITH SLEEP - TEMAZEPAM FOR SLEEP.Left arm and hand pain - may be ascending carpal tunnel related pain - therefore: WILL SEND TO SEE DR. LION FOR LEFT HAND/ARM PAIN - SUSPECT CARPAL TUNNEL ENTRAPMENT. 03/22/2013 Appointment: Deneen Rosenberg WPtel: [facility] [place] Other 03/22/2013 Patient Education: Patient Medication [...] and to assure normal liver response to medications.Pt to hold gemfibrozil x 1 month, also referral to cardiology.OA - chronic - pt to start on glucosamine, monitor symptoms and take tylenol prn for pain.Malais and fatigue - check labs. 02/28/2013 Appointment: Deneen Rosenberg WPtel: [facility]5 [facility] Follow up 02/28/2013 Patient Education: Patient Medication Summary Completed 02/28/2013 Visit Plan: Sinusitis - Pt has acute infection - pain in face, maxillary region, Pt informed to use decongestant, RX given to patient, sinus rinses also recommended. Call if symptoms do not show improvement.Rocephin injection today in the office 10/23/2012 Appointment: Lalitha Alcala WPtel: [facility] [place] Sick 10/23/2012 Patient Education: Patient Medication Summary Completed 10/23/2012 Appointment: Deneen Rosenberg WPtel: [facility]1 [facility] Lab Draw 03/14/2012 Patient Education: Patient [...] diet. Pt has been encouraged to exercise daily.The pt has been advised to call the [...] Deneen Rosenberg WPtel: [facility]5 [facility] [place] Other 03/08/2012 Patient Education: Patient Medication Summary Completed 03/08/2012 Patient Education: High Blood Pressure: Essential Hypertension Completed 03/08/2012 Visit Plan: Asthma- controlled by the current medication.. No change in the treatment at this time.Osteoarthritis- pt has been instructed to use celebrex twice daily on the days that she is working. 09/28/2011 Appointment: Deneen Rosenberg WPtel: [facility]5 [facility] [place] Follow up 09/28/2011 Patient Education: Patient Medication Summary Completed 09/28/2011 App[facility]ment: [phone] [facility] [place] Injection 07/05/2011 Patient Education: Patient Medication Summary Completed 07/05/2011 Appointment: Deneen Rosenberg WPtel: [phone] [facility] [place] Lab Draw 06/28/2011 Patient Education: Patient [...] indicated. 06/27/2011 Appointment: Lalith[facility] Alcala [facility]el[facility] [phone] [facility] [place] Other 06/27/2011 Patient Education: Patient Medication Summary Completed 06/27/2011 Care Plan: CBC (COMPLETE CBC W/AUTO DIFF WBC) LOINC : 57986-5 Ordered 06/27/2011 Care Plan: CHEM 14 (COMPREHEN METABOLIC PANEL) LOINC : 43072-1 Ordered 06/27/2011 Care Plan: LIPID GRP (LIPID PANEL) LOINC : 90816-6 Ordered 06/27/2011 Care Plan: TSH (ASSAY THYROID STIM HORMONE) Ordered 06/27/2011 Referral: External, Ordering Provider Referral Appointment Requested Referral: External, Ordering Provider They will call [...] 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 sample of TUDORZA ONE INHALE TWICE DAILY, RINSE OUT MOUTH AFTER USE.. Asthma - chronic problem for this patient. We have reviewed chronic treatment strategy, symptom control, and plans for acute exacerbations. No changes today to the current treatment plan as the patient is stable, monitor for acute changes . Sinusitis - Pt has acute infection [...] Call if symptoms do not show improvement. Start Align or Culturelle Probiotic Daily, Sample [...] medications. Patient provided with mammogram order. . epistaxis - Pt states that she [...] Call if bleeding returns. HTN-well controlled-no changes PT AGREED TO SLEEP STUDY AND [...] DOPA paperwork for health care surrogate. . Well Adult Female - exam completed. [...] if symptoms do not show improvement. . Hyperlipidemia - pt has been counseled [...] Rocephin injection today in the office . Arthritis - plan to refer pt [...] spray in the nasal steroid allergy spray. Start Align or Culturelle Probiotic Daily, Sample [...] medications. Patient provided with mammogram order. . Cerumen Impaction - The impacted cerumen [...] able to get to her ENT in [place]. . Asthma EXACERBATION - ASTHMA is a [...]
--- OUTSIDE RECORDS SUMMARY | 2019-04-16 05:25 | XMS REPORT | CCD ---
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) and also during college she was exposed to smoke during her work in college 2013 Marital status Unknown Since 200406/26/2011 Number of children Unknown 3 2 daughters, 1 son 06/26/[address]: 101779315 Never drinks alcohol 06/26/2011 Has the patient [...] PENICILLINS Unknown 06/26/2011 No Inactive Date Active [id number] REDUCTASE INHIBITORS Unknown 06/26/2011 No Inactive Date [...] 06/11/2015 Unknown Pelvic and perineal pain ICD-9: [id number] ICD-10: R10.2 Active 06/11/2015 Unknown Well woman [...] 06/11/2015 Active Pelvic and perineal pain ICD-9: [id number] ICD-10: R10.2 06/11/2015 Active Well woman exam [...] Start Date Stop Date Status Fill Instructions Celebrex 200 mg capsule RxNorm: 922461 TAKE 1 CAPSULE BY MOUTH TWO TIMES DAILY 02/01/2019 10/28/2019 Active - Ref: [id number] paroxetine 20 mg tablet RxNorm: 3080685 TAKE 1/2 TABLET BY MOUTH EVERY DAY 02/01/2019 10/28/2019 Active lidocaine 4 % topical patch RxNorm: 3928680 1 Patch TOP UD 12/03/2018 No Stop Date Active if too expensive get OTC salon pas amlodipine 5 mg tablet RxNorm: 708828 1 Tablet(s) PO daily 11/09/2018 06/06/2019 Active ProAir HFA 90 mcg/actuation aerosol inhaler RxNorm: 3324907 1-2 INH QID as needed 11/07/2018 03/06/2019 Active prednisone 10 mg tablet RxNorm: 766006 1 Tablet(s) PO UD 2tabs bid x3days, then 2tabs AM and 1tabPM x3days, then 1tab BID x 3days then 1tab AM x 3 days then stop 11/07/2018 No Stop Date Active albuterol sulfate 1.25 mg/3 mL solution for nebulization RxNorm: 469081 3 Milliliter(s) INH Q4 PRN as needed dyspnea from COPD 11/07/2018 11/01/2019 Active valacyclovir 1 gram tablet RxNorm: 759110 1 Tablet(s) PO BID 11/07/2018 11/20/2018 Inactive gemfibrozil 600 mg tablet RxNorm: 307858 1 TABLET(S) PO TAKE ONE TABLET BY MOUTH TWICE DAILY 10/15/2018 07/11/2019 Active Diflucan 150 mg tablet RxNorm: 025461 1 Tablet(s) PO daily 09/04/2018 09/13/2018 Inactive amlodipine 2.5 mg tablet RxNorm: 274611 1 Tablet(s) PO daily 09/04/2018 11/08/2018 Inactive albuterol sulfate 1.25 mg/3 mL solution for nebulization RxNorm: 326619 3 Milliliter(s) INH Q4 PRN as needed dyspnea 07/10/2018 11/06/2018 Inactive Diflucan 150 mg tablet RxNorm: 832012 1 Tablet(s) PO daily x 3 days then may repeat in 10 days if symptoms are not resolved in throat 06/19/2018 06/30/2018 Inactive Keflex 500 mg capsule RxNorm: 228388 1 Capsule(s) PO TID 06/15/2018 06/21/2018 Inactive Keflex 500 mg capsule RxNorm: 409381 1 Capsule(s) PO TID 06/15/2018 06/14/2018 Inactive paroxetine 20 mg tablet RxNorm: 3995213 TAKE 1/2 TABLET BY MOUTH EVERY DAY 05/09/2018 01/31/2019 Inactive prednisone 20 mg tablet RxNorm: 834331 2 Tablet(s) PO daily 03/13/2018 03/22/2018 Inactive Celebrex 200 mg capsule RxNorm: 356357 TAKE 1 CAPSULE BY MOUTH TWO TIMES DAILY 03/08/2018 09/03/2018 Inactive - First Attempt Ref: [id number] Singulair 10 mg tablet RxNorm: 280414 Tablet(s) TAKE 1 TABLET BY MOUTH DAILY 02/27/2018 02/21/2019 Active Kenalog 40 mg/mL suspension for injection RxNorm: 4359368 1 Milliliter(s) Inj 02/02/2018 02/02/2018 Inactive Singulair 10 mg tablet RxNorm: 500000 TAKE 1 TABLET BY MOUTH DAILY 01/05/2018 02/26/2018 Inactive - First Attempt Ref: [id number] pantoprazole 40 mg tablet,delayed release RxNorm: 218317 Tablet(s) TAKE 1 TABLET DAILY 12/19/2017 01/07/2018 Inactive gemfibrozil 600 mg tablet RxNorm: 492572 1 TABLET(S) PO TAKE ONE TABLET BY MOUTH TWICE DAILY 12/05/2017 08/31/2018 Inactive albuterol sulfate 1.25 mg/3 mL solution for nebulization RxNorm: 902652 3 Milliliter(s) INH Q4 PRN as needed dyspnea 11/22/2017 05/20/2018 Inactive albuterol sulfate 1.25 mg/3 mL solution for nebulization RxNorm: 839725 3 Milliliter(s) INH Q4 PRN as needed dyspnea 11/02/2017 11/21/2017 Inactive methylprednisolone 4 mg tablets in a dose pack RxNorm: 953756 1 Tablet(s) PO UD 09/01/2017 No Stop Date Active albuterol sulfate 1.25 mg/3 mL solution for nebulization RxNorm: 158328 3 Milliliter(s) INH Q4 PRN as needed dyspnea 09/01/2017 11/01/2017 Inactive Keflex 500 mg capsule RxNorm: 628759 1 Capsule(s) PO TID 09/01/2017 09/10/2017 Inactive methylprednisolone 4 mg tablets in a dose pack RxNorm: 820319 1 Tablet(s) PO UD To start tomorrow 08/21/2017 08/31/2017 Inactive Kenalog 40 mg/mL suspension for injection RxNorm: 8343906 Milliliter(s) Inj 08/21/2017 08/21/2017 Inactive Levaquin 500 mg tablet RxNorm: 078530 1 Tablet(s) PO daily 08/21/2017 08/27/2017 Inactive Ativan 0.5 mg tablet RxNorm: 905633 1 Tablet(s) PO 1 hour before MRI, february repeat dose x1 07/21/2017 07/20/2017 Inactive Ativan 0.5 mg tablet RxNorm: 241490 1 Tablet(s) PO 1 hour before MRI, february repeat dose x1 07/21/2017 07/21/2017 Inactive ProAir HFA 90 mcg/actuation aerosol inhaler RxNorm: 0752592 1-2 INH QID as needed 07/18/2017 11/14/2017 Inactive Kenalog 40 mg/mL suspension for injection RxNorm: 5653568 Milliliter(s) Inj 06/30/2017 06/30/2017 Inactive albuterol sulfate 1.25 mg/3 mL solution for nebulization RxNorm: 205041 3 Milliliter(s) INH Q4 PRN as needed dyspnea 06/07/2017 08/31/2017 Inactive Keflex 500 mg capsule RxNorm: 043060 1 Capsule(s) PO TID 06/02/2017 06/01/2017 Inactive Keflex 500 mg capsule RxNorm: 900013 1 Capsule(s) PO TID 06/02/2017 06/08/2017 Inactive methylprednisolone 4 mg tablets in a dose pack RxNorm: 762715 1 Tablet(s) PO UD To start tomorrow 05/10/2017 08/20/2017 Inactive Kenalog 40 mg/mL suspension for injection RxNorm: 1544682 Milliliter(s) Inj 05/09/2017 05/09/2017 Inactive Voltaren 1 % topical gel RxNorm: 366291 1 Application TOP TID as needed 05/08/2017 No Stop Date Active paroxetine 20 mg tablet RxNorm: 3922130 TAKE 1/2 TABLET BY MOUTH EVERY DAY 05/03/2017 04/27/2018 Inactive gemfibrozil 600 mg tablet RxNorm: 304493 1 TABLET(S) PO TAKE ONE TABLET BY MOUTH TWICE DAILY 02/21/2017 11/17/2017 Inactive Celebrex 200 mg capsule RxNorm: 909876 1 Capsule(s) PO BID 02/08/2017 02/02/2018 Inactive Celebrex 200 mg capsule RxNorm: 025540 1 Capsule(s) PO BID TAKE 1 CAPSULE TWICE DAILY 02/02/2017 02/07/2017 Inactive ketoconazole 2 % shampoo RxNorm: 035982 1 Application TOP daily x 1 week then weekly as needed for rash 01/31/2017 No Stop Date Active DC topical cream ProAir RespiClick 90 mcg/actuation breath activated RxNorm: 5503291 1 -2 INH Q4H as needed ASTHMA 01/31/2017 07/17/2017 Inactive Kenalog 40 mg/mL suspension for injection RxNorm: 6209020 1.5 Milliliter(s) Inj 01/30/2017 01/30/2017 Inactive Levaquin 500 mg tablet RxNorm: 849533 1 Tablet(s) PO daily 01/30/2017 02/05/2017 Inactive Celebrex 200 mg capsule RxNorm: 244837 1 Capsule(s) PO BID TAKE 1 CAPSULE TWICE DAILY 01/30/2017 02/01/2017 Inactive methylprednisolone 4 mg tablets in a dose pack RxNorm: 659092 1 Tablet(s) PO UD 01/30/2017 05/08/2017 Inactive ketoconazole 2 % shampoo RxNorm: 534583 1 Application TOP daily x 1 week then weekly as needed for rash 12/30/2016 01/30/2017 Inactive DC topical cream aspirin 81 mg tablet,delayed release RxNorm: 820012 1 Tablet(s) PO daily 12/29/2016 No Stop Date Active ketoconazole 2 % topical cream RxNorm: 315961 1 Application TOP daily x 1 week then weekly as needed for rash 12/29/2016 12/29/2016 Inactive Singulair 10 mg tablet RxNorm: 369849 Tablet(s) TAKE 1 TABLET DAILY 11/30/2016 11/23/2017 Inactive pantoprazole 40 mg tablet,delayed release RxNorm: 650780 Tablet(s) TAKE 1 TABLET DAILY 11/30/2016 11/23/2017 Inactive paroxetine 20 mg tablet RxNorm: 4485814 Tablet(s) TAKE ONE-HALF TABLET BY MOUTH EVERY DAY 11/25/2016 05/02/2017 Inactive paroxetine 20 mg tablet RxNorm: 9855550 Tablet(s) TAKE ONE-HALF TABLET BY MOUTH EVERY DAY 11/17/2016 11/24/2016 Inactive Levaquin 500 mg tablet RxNorm: 457390 1 Tablet(s) PO daily 10/11/2016 11/24/2016 Inactive pantoprazole 40 mg tablet,delayed release RxNorm: 073501 TAKE 1 TABLET DAILY 08/22/2016 11/29/2016 Inactive gemfibrozil 600 mg tablet RxNorm: 590507 1 TABLET(S) PO TAKE ONE TABLET BY MOUTH TWICE DAILY 05/06/2016 01/30/2017 Inactive temazepam 7.5 mg capsule RxNorm: 419186 1 Capsule(s) PO HS PRN 03/24/2016 No Stop Date Active Singulair 10 mg tablet RxNorm: 010241 Tablet(s) TAKE 1 TABLET DAILY 03/07/2016 11/29/2016 Inactive Singulair 10 mg tablet RxNorm: 232304 Tablet(s) TAKE 1 TABLET DAILY 03/07/2016 03/06/2016 Inactive pantoprazole 40 mg tablet,delayed release RxNorm: 386466 TAKE 1 TABLET DAILY 02/15/2016 08/12/2016 Inactive Celebrex 200 mg capsule RxNorm: 506253 1 Capsule(s) PO BID TAKE 1 CAPSULE TWICE DAILY 01/25/2016 01/17/2017 Inactive gemfibrozil 600 mg tablet RxNorm: 738728 1 TABLET(S) PO TAKE ONE TABLET BY MOUTH TWICE DAILY 11/10/2015 05/05/2016 Inactive Patient requests 90 days supply Levaquin 500 mg tablet RxNorm: 237431 1 Tablet(s) PO daily 09/29/2015 10/08/2015 Inactive albuterol sulfate 1.25 mg/3 mL solution for nebulization RxNorm: 459538 3 Milliliter(s) INH PRN as needed dyspnea 09/25/2015 06/06/2017 Inactive Levaquin 500 mg tablet RxNorm: 365617 1 Tablet(s) PO daily 08/24/2015 09/02/2015 Inactive albuterol sulfate HFA 90 mcg/actuation aerosol inhaler RxNorm: 7066887 1-2 Puff(s) INH Q4 PRN as needed 08/24/2015 01/30/2017 Inactive sample and rX provided albuterol sulfate HFA 90 mcg/actuation aerosol inhaler RxNorm: 7091412 1-2 Puff(s) INH Q4 PRN as needed 08/24/2015 08/23/2015 Inactive sample and rX provided paroxetine 20 mg tablet RxNorm: 9903723 Tablet(s) TAKE ONE-HALF TABLET BY MOUTH EVERY DAY 08/21/2015 03/17/2016 Inactive pantoprazole 40 mg tablet,delayed release RxNorm: 571645 1 Tablet(s) PO daily 07/27/2015 07/26/2015 Inactive pantoprazole 40 mg tablet,delayed release RxNorm: 872075 1 Tablet(s) PO daily 07/27/2015 01/22/2016 Inactive gemfibrozil 600 mg tablet RxNorm: 456073 1 TABLET(S) PO TAKE ONE TABLET BY MOUTH TWICE DAILY 07/10/2015 11/09/2015 Inactive nystatin (bulk) 100 million unit powder RxNorm: 1 APPLICATION TOP TID 06/25/2015 07/15/2015 Inactive Kenalog 40 mg/mL suspension for injection RxNorm: 0834920 Milliliter(s) Inj 05/29/2015 05/29/2015 Inactive Keflex 500 mg capsule RxNorm: 046987 1 Capsule(s) PO TID 05/29/2015 06/07/2015 Inactive nystatin (bulk) 100 million unit powder RxNorm: 1 Application TOP TID 05/29/2015 06/18/2015 Inactive ceftriaxone 500 mg solution for injection RxNorm: 3106148 Inj 05/29/2015 05/29/2015 Inactive Fioricet 50 mg-325 mg-40 mg tablet RxNorm: 510303 1 Tablet(s) PO Q6 PRN as needed 04/20/2015 07/18/2015 Inactive Bactroban 2 % topical ointment RxNorm: 530714 1 TOP BID 03/26/2015 No Stop Date Active Align 4 mg capsule RxNorm: 383490 1 Capsule(s) PO daily 03/19/2015 12/28/2016 Inactive Singulair 10 mg tablet RxNorm: 325526 TAKE 1 TABLET DAILY 03/02/2015 02/24/2016 Inactive Bactroban 2 % topical ointment RxNorm: 861267 1 APPLICATION TOP BID 12/02/2014 12/11/2014 Inactive right nare ceftriaxone 500 mg solution for injection RxNorm: 551659 Inj 10/15/2014 10/15/2014 Inactive Keflex 500 mg capsule RxNorm: 814476 1 Capsule(s) PO BID 10/15/2014 10/28/2014 Inactive Kenalog 40 mg/mL suspension for injection RxNorm: 1005943 Milliliter(s) Inj 10/15/2014 10/15/2014 Inactive prednisone 20 mg tablet RxNorm: 868710 1 Tablet(s) PO daily 10/15/2014 10/24/2014 Inactive Tudorza Pressair 400 mcg/actuation breath activated RxNorm: 7448911 1 Puff(s) INH BID 10/15/2014 11/13/2014 Inactive gemfibrozil 600 mg tablet RxNorm: 383501 1 Tablet(s) PO TAKE ONE TABLET BY MOUTH TWICE DAILY 09/29/2014 06/25/2015 Inactive Celebrex 200 mg capsule RxNorm: 913779 1 Capsule(s) PO BID TAKE 1 CAPSULE TWICE DAILY 07/31/2014 07/25/2015 Inactive paroxetine 20 mg tablet RxNorm: 121036 TAKE ONE-HALF TABLET BY MOUTH EVERY DAY 07/15/2014 02/09/2015 Inactive Bactroban 2 % topical ointment RxNorm: 233353 1 Application TOP BID 04/10/2014 04/14/2014 Inactive right nare Singulair 10 mg tablet RxNorm: 746561 1 Tablet(s) PO daily TAKE 1 TABLET DAILY 02/27/2014 02/21/2015 Inactive Celebrex 200 mg capsule RxNorm: 542910 1 Capsule(s) PO BID TAKE 1 CAPSULE TWICE DAILY 02/27/2014 07/30/2014 Inactive ciprofloxacin 500 mg tablet RxNorm: 444964 1 Tablet(s) PO BID 02/17/2014 02/26/2014 Inactive prednisone 20 mg tablet RxNorm: 551268 1 Tablet(s) PO daily 02/17/2014 02/21/2014 Inactive Fioricet 50 mg-325 mg-40 mg tablet RxNorm: 211216 1 Tablet(s) PO Q6 PRN 02/17/2014 05/16/2014 Inactive Kenalog 40 mg/mL suspension for injection RxNorm: 4212913 Milliliter(s) Inj 02/17/2014 02/17/2014 Inactive Bactrim 400 mg-80 mg tablet RxNorm: 541835 1 Tablet(s) PO BID 12/25/2013 12/24/2013 Inactive Omnicef 300 mg capsule RxNorm: 911846 1 Capsule(s) PO BID 12/25/2013 01/03/2014 Inactive please dc the bactrim order. pt states she is allergic. Bactrim 400 mg-80 mg tablet RxNorm: 807893 1 Tablet(s) PO BID 12/25/2013 12/25/2013 Inactive gemfibrozil 600 mg tablet RxNorm: 896841 Tablet(s) PO TAKE ONE TABLET BY MOUTH TWICE DAILY 12/12/2013 09/28/2014 Inactive Rocephin 500 mg solution for injection RxNorm: 888174 Inj 12/05/2013 12/05/2013 Inactive Bactroban 2 % topical ointment RxNorm: 942453 1 Application TOP BID right nare 12/05/2013 12/11/2013 Inactive Keflex 500 mg capsule RxNorm: 705187 1 Capsule(s) PO BID 12/05/2013 12/11/2013 Inactive paroxetine 20 mg tablet RxNorm: 433501 Tablet(s) PO TAKE ONE-HALF TABLET BY MOUTH EVERY DAY 07/15/2013 07/14/2014 Inactive Influenza Virus Vaccine 0.5 mL RxNorm: IM 07/09/2013 07/09/2013 Inactive Singulair 10 mg tablet RxNorm: 200195 Tablet(s) PO TAKE 1 TABLET DAILY 05/30/2013 02/26/2014 Inactive Celebrex 200 mg capsule RxNorm: 448055 Capsule(s) PO TAKE 1 CAPSULE TWICE DAILY 04/13/2013 02/26/2014 Inactive Singulair 10 mg tablet RxNorm: 856270 1 Tablet(s) PO daily 02/28/2013 05/29/2013 Inactive gemfibrozil 600 mg tablet RxNorm: 743479 Tablet(s) PO TAKE ONE TABLET BY MOUTH TWICE DAILY 11/28/2012 12/11/2013 Inactive Rocephin 500 mg Solution for Injection RxNorm: 9603829 1 Milliliter(s) Inj 10/23/2012 10/23/2012 Inactive paroxetine 20 mg tablet RxNorm: 4221220 1/2 Tablet(s) PO daily 07/13/2012 07/14/2013 Inactive TAKE ONE-HALF TABLET BY MOUTH EVERY DAY Fioricet 50 mg-325 mg-40 mg tablet RxNorm: 083434 1 Tablet(s) PO Q6 PRN 04/17/2012 07/15/2012 Inactive gemfibrozil 600 mg tablet RxNorm: 534209 Tablet(s) PO 11/17/2011 11/27/2012 Inactive TAKE ONE TABLET BY MOUTH TWICE DAILY gemfibrozil 600 mg Tab RxNorm: 460022 1 Tablet(s) PO BID 11/16/2011 11/16/2011 Inactive MIDRIN 325 mg-65 mg-100 mg Cap RxNorm: 958337 1 Capsule(s) PO Q4-6H 09/15/2011 04/17/2012 Inactive max 8 tabs/24 hours Influenza Virus Vaccine 0.5 mL RxNorm: IM 07/05/2011 07/05/2011 Inactive Pulmicort Flexhaler 180 mcg/Inhalation Breath Activated RxNorm: 6386354 1 Puff(s) INH daily 06/27/2011 07/26/2011 Inactive Singulair 10 mg tablet RxNorm: 845317 1 Tablet(s) PO daily 06/27/2011 07/26/2011 Inactive Celebrex 200 mg capsule RxNorm: 003481 1 Capsule(s) PO BID 06/27/2011 04/12/2013 Inactive paroxetine 20 mg tablet RxNorm: 1812040 1/2 Tablet(s) PO daily 06/27/2011 07/13/2012 Inactive gemfibrozil 600 mg Tab RxNorm: 732722 1 Tablet(s) PO BID 06/27/2011 11/15/2011 Inactive requests 90 day supply-refilled but needs labs amaury. vitamin B6-vitamin E-magnesium Oral RxNorm: Oral No Start Date Active Advil Oral RxNorm: Oral No Start Date Active gabapentin 100 mg tablet RxNorm: 459195 1 Tablet(s) PO PRN No Start Date Active ranitidine 150 mg tablet RxNorm: 203102 1 Tablet(s) PO daily No Start Date Active Claritin 10 mg tablet RxNorm: 773340 1 Tablet(s) PO daily No Start Date Active Flexeril 5 mg Tab RxNorm: 398817 1/2-2 Tablet(s) PO PRN 1/2-1 po q 8 hours prn back pain or muscle spasms No Start Date Active Dulera 200 mcg-5 mcg/actuation HFA aerosol inhaler RxNorm: 4551197 1 INH BID No Start Date Active gabapentin 300 mg capsule RxNorm: 431702 1 Capsule(s) PO TID No Start Date Active folic acid Oral RxNorm: Oral No Start Date Active baclofen 20 mg tablet RxNorm: 187675 1 Tablet(s) PO TID as needed No Start Date Active vitamin [id number] B1 Oral RxNorm: Oral No Start Date Active chlordiazepoxide-clidinium 5 mg-2.5 mg Cap RxNorm: 600025 1 Capsule(s) PO PRN For IBS No Start Date Active Singulair 10 mg Tab RxNorm: 737353 1 Tablet(s) PO daily No Start Date 06/26/2011 Inactive Omnicef 300 mg capsule RxNorm: 901317 1 Capsule(s) PO BID No Start Date 12/24/2013 Inactive albuterol sulfate HFA 90 mcg/Actuation Aerosol Inhaler RxNorm: 6260158 1-2 Puff(s) INH Q4 PRN No Start Date 08/23/2015 Inactive sample and rX provided aspirin 81 mg Tab, Delayed Release RxNorm: 893750 1 Tablet(s) PO BID No Start Date 12/28/2016 Inactive Tudorza Pressair 400 mcg/actuation Breath Activated RxNorm: 4654761 1 Puff(s) INH BID No Start Date 10/14/2014 Inactive niacin ER 500 mg Tab RxNorm: 9034509 1 Tablet(s) PO QHS No Start Date 02/27/2013 Inactive Celebrex 200 mg Cap RxNorm: 179666 1 Capsule(s) PO BID No Start Date 06/26/2011 Inactive loratadine 10 mg Tab RxNorm: 913352 1 Tablet(s) PO daily No Start Date 02/27/2013 Inactive Nasonex 50 mcg/Actuation [place] RxNorm: 120539 2 [place] NASAL BID No Start Date 06/26/2011 Inactive Zithromax Z-Marty 250 mg Tab RxNorm: 467202 Tablet(s) PO No Start Date 07/11/2011 Inactive 2 tabs today, then tabs 2-5 daily Zithromax Z-Marty 250 mg tablet RxNorm: 916137 Tablet(s) PO UD No Start Date 04/21/2013 Inactive Tessalon Perles 100 mg Cap RxNorm: 839684 1 Capsule(s) PO PRN No Start Date 07/11/2011 Inactive albuterol sulfate HFA 90 mcg/Actuation Aerosol Inhaler RxNorm: 9852251 Inhalation No Start Date 06/27/2011 Inactive Nasacort AQ 55 mcg Nasal [place] Aerosol RxNorm: 7296632 1 [place] NASAL PRN No Start Date 12/28/2016 Inactive gemfibrozil 600 mg Tab RxNorm: 707837 1 Tablet(s) PO BID No Start Date 06/26/2011 Inactive Pulmicort Flexhaler 180 mcg/Inhalation Breath Activated RxNorm: 2922273 1 INH daily No Start Date 06/26/2011 Inactive paroxetine 20 mg Tab RxNorm: 4007371 1/2 Tablet(s) PO daily No Start Date 06/26/2011 Inactive MIDRIN 325 mg-65 mg-100 mg Cap RxNorm: 772094 1 Capsule(s) PO Q4-6H No Start Date 09/14/2011 Inactive max 8 tabs/24 hours beta carotene Oral RxNorm: Oral No Start Date 12/28/2016 Inactive Medication Administered Medication Codes Instructions Start Date Status Kenalog 40 mg/mL suspension for injection RxNorm: 5484518 1Milliliter 02/02/2018 No longer Active Kenalog 40 mg/mL suspension for injection RxNorm: 3797083 Milliliter 08/21/2017 No longer Active Kenalog 40 mg/mL suspension for injection RxNorm: 9917269 Milliliter 06/30/2017 No longer Active Kenalog 40 mg/mL suspension for injection RxNorm: 7781026 Milliliter 05/09/2017 No longer Active Kenalog 40 mg/mL suspension for injection RxNorm: 8760539 1.5Milliliter 01/30/2017 No longer Active Kenalog 40 mg/mL suspension for injection RxNorm: 3119104 Milliliter 05/29/2015 No longer Active ceftriaxone 500 mg solution for injection RxNorm: 5989978 05/29/2015 No longer Active Kenalog 40 mg/mL suspension for injection RxNorm: 6359623 Milliliter 10/15/2014 No longer Active ceftriaxone 500 mg solution for injection RxNorm: 160300 10/15/2014 No longer Active Kenalog 40 mg/mL suspension for injection RxNorm: 8460126 Milliliter 02/17/2014 No longer Active Rocephin 500 mg solution for injection RxNorm: 136496 12/05/2013 No longer Active Influenza Virus Vaccine 0.5 mL RxNorm: 07/09/2013 No longer Active Rocephin 500 mg Solution for Injection RxNorm: 9393291 1Milliliter 10/23/2012 No longer Active Influenza Virus [...] Pelvic and perineal pain ICD-10: R10.2 ICD-9: USV7186 06/12/2015 Encounter for screening for malignant neoplasm [...] NO Growth Day 2 06/19/2018 Parathyroid Hormone Aav436 PTH 81.40 pg/ml 05/10/2018 Comp Metabolic Duq890 NA 142 mEq/L 05/10/2018 Comp Metabolic Tap201 K 4.1 mEq/L 05/10/2018 Comp Metabolic Tqu951 CL 105 mEq/L 05/10/2018 Comp Metabolic Ngu420 CO2 27.0 mEq/L 05/10/2018 Comp Metabolic Xed064 ANION GAP 14 05/10/2018 Comp Metabolic Buw707 GLUCOSE 95 mg/dL 05/10/2018 Comp Metabolic Ibd599 Creat 0.9 mg/dL 05/10/2018 Comp Metabolic Ygs149 eGFR 65 ml/min/1.73m2 05/10/2018 Comp Metabolic Kzs687 BUN 15 mg/dL 05/10/2018 Comp Metabolic Xum574 B/C Ratio 16.9 Ratio 05/10/2018 Comp Metabolic Ewi838 CALCIUM 9.8 mg/dL 05/10/2018 Comp Metabolic Cph050 ALK PHOS 77 U/L 05/10/2018 Comp Metabolic Ult963 AST(SGOT) 24 U/L 05/10/2018 Comp Metabolic Dwe662 ALT(SGPT) 23 U/L 05/10/2018 Comp Metabolic Nae096 BILI T 0.5 mg/dL 05/10/2018 Comp Metabolic Vwk113 ALBUMIN 4.8 g/dL 05/10/2018 Comp Metabolic Omc675 TPRO 7.2 g/dL 05/10/2018 Comp Metabolic Qpy615 GLOB 2.5 g/dL 05/10/2018 Comp Metabolic Thz419 A/G Ratio 1.9 Ratio 05/10/2018 Comp Metabolic Htj734 Osmo 284 mOsmo 05/10/2018 Vitamin D 25 Oh Tjn0510 VITAMIN D, 25 HYDROXY 51.58 ng/mL 05/10/2018 [...] 32.1 pg 05/10/2018 Cbc With Differential Ord2 [place]% 9.6 % 05/10/2018 Cbc With Differential Ord2 [...] 3.52 K/ul 05/10/2018 Cbc With Differential Ord2 [place] ABS# 0.8 K/ul 05/10/2018 Cbc With Differential [...] 31.6 pg 01/09/2018 Cbc With Differential Ord2 [place]% 9.8 % 01/09/2018 Cbc With Differential Ord2 [...] 3.05 K/ul 01/09/2018 Cbc With Differential Ord2 [place] ABS# 0.7 K/ul 01/09/2018 Cbc With Differential Ord2 E[place] ABS# 0.5 K/ul 01/09/2018 Cbc With Differential Ord2 Baso ABS# 0.0 K/ul 01/09/2018 Tsh Ord6 TSH (3rd IS) 3.12 uIU/mL 01/09/2018 Comp Metabolic Tlh040 NA 140 mEq/L 01/09/2018 Comp Metabolic Bqr498 K 4.0 mEq/L 01/09/2018 Comp Metabolic Vom892 CL 105 mEq/L 01/09/2018 Comp Metabolic Lza420 CO2 28.0 mEq/L 01/09/2018 Comp Metabolic Wed939 ANION GAP 11 01/09/2018 Comp Metabolic Mnt033 GLUCOSE 98 mg/dL 01/09/2018 Comp Metabolic Oyf865 Creat 0.7 mg/dL 01/09/2018 Comp Metabolic Vde837 eGFR 87 ml/min/1.73m2 01/09/2018 Comp Metabolic Nlp675 BUN 14 mg/dL 01/09/2018 Comp Metabolic Nlz241 B/C Ratio 20.3 Ratio 01/09/2018 Comp Metabolic Ali167 CALCIUM 9.8 mg/dL 01/09/2018 Comp Metabolic Rfr591 ALK PHOS 113 U/L 01/09/2018 Comp Metabolic Quw801 AST(SGOT) 22 U/L 01/09/2018 Comp Metabolic Myy817 ALT(SGPT) 22 U/L 01/09/2018 Comp Metabolic Ltd540 BILI T 0.5 mg/dL 01/09/2018 Comp Metabolic Lry925 ALBUMIN 4.6 g/dL 01/09/2018 Comp Metabolic Wqp235 TPRO 7.0 g/dL 01/09/2018 Comp Metabolic Cyx332 GLOB 2.4 g/dL 01/09/2018 Comp Metabolic Vhc481 A/G Ratio 2.0 Ratio 01/09/2018 Comp Metabolic Lec219 Osmo 280 mOsmo 01/09/2018 Lipid Ord30 CHOL 163 mg/dL 12/27/2016 Lipid Ord30 HDL 63.0 mg/dl 12/27/2016 Lipid Ord30 TRIG 62 mg/dL 12/27/2016 Lipid Ord30 LDL 88 mg/dL 12/27/2016 Lipid Ord30 C/HDL 2.6 Ratio 12/27/2016 Tsh Ord6 hTSH II 2.47 uIU/mL 12/27/2016 Comp Metabolic Dqm348 NA 140 mEq/L 12/27/2016 Comp Metabolic Ojo362 K 4.0 mEq/L 12/27/2016 Comp Metabolic Dlx117 CL 105 mEq/L 12/27/2016 Comp Metabolic Tdd043 CO2 28.0 mEq/L 12/27/2016 Comp Metabolic Npf303 ANION GAP 11 12/27/2016 Comp Metabolic Xmh206 GLUCOSE 102 mg/dL 12/27/2016 Comp Metabolic Cgj598 Creat 0.7 mg/dL 12/27/2016 Comp Metabolic Lzl614 eGFR 81 ml/min/1.73m2 12/27/2016 Comp Metabolic Aib101 BUN 15 mg/dL 12/27/2016 Comp Metabolic Mbc238 B/C Ratio 20.3 Ratio 12/27/2016 Comp Metabolic Lft696 CALCIUM 10.0 mg/dL 12/27/2016 Comp Metabolic Imy082 ALK PHOS 110 U/L 12/27/2016 Comp Metabolic Jzr973 AST(SGOT) 20 U/L 12/27/2016 Comp Metabolic Umw752 ALT(SGPT) 22 U/L 12/27/2016 Comp Metabolic Kcc986 BILI T 0.5 mg/dL 12/27/2016 Comp Metabolic Fxu533 ALBUMIN 4.7 g/dL 12/27/2016 Comp Metabolic Epn699 TPRO 7.2 g/dL 12/27/2016 Comp Metabolic Wtr384 GLOB 2.5 g/dL 12/27/2016 Comp Metabolic Vvg664 A/G Ratio 1.9 Ratio 12/27/2016 Comp Metabolic Uvj924 Osmo 280 mOsmo 12/27/2016 Cbc With Differential [...] 31.9 pg 12/27/2016 Cbc With Differential Ord2 [place]% 8.6 % 12/27/2016 Cbc With Differential Ord2 [...] 3.60 K/ul 12/27/2016 Cbc With Differential Ord2 [place] ABS# 0.6 K/ul 12/27/2016 Cbc With Differential [...] 31.7 pg 06/13/2016 Cbc With Differential Ord2 [place]% 8.4 % 06/13/2016 Cbc With Differential Ord2 [...] 3.26 K/ul 06/13/2016 Cbc With Differential Ord2 [place] ABS# 0.6 K/ul 06/13/2016 Cbc With Differential Ord2 Eos ABS# 1.0 K/ul 06/13/2016 Cbc With Differential Ord2 Baso ABS# 0.0 K/ul 06/13/2016 Comp Metabolic Ode884 NA 141 mEq/L 03/25/2016 Comp Metabolic Vyi821 K 4.0 mEq/L 03/25/2016 Comp Metabolic Qzl857 CL 103 mEq/L 03/25/2016 Comp Metabolic Vpe392 CO2 28.0 mEq/L 03/25/2016 Comp Metabolic Knx918 ANION GAP 14 03/25/2016 Comp Metabolic Shr734 GLUCOSE 91 mg/dL 03/25/2016 Comp Metabolic Sjz608 Creat 0.8 mg/dL 03/25/2016 Comp Metabolic Kvn931 eGFR 70 ml/min/1.73m2 03/25/2016 Comp Metabolic Bvk036 BUN 16 mg/dL 03/25/2016 Comp Metabolic Gbe870 B/C Ratio 19.0 Ratio 03/25/2016 Comp Metabolic Cal495 CALCIUM 9.8 mg/dL 03/25/2016 Comp Metabolic Jxw534 ALK PHOS 111 U/L 03/25/2016 Comp Metabolic Phh767 AST(SGOT) 19 U/L 03/25/2016 Comp Metabolic Tis107 ALT(SGPT) 19 U/L 03/25/2016 Comp Metabolic Mwz097 BILI T 0.6 mg/dL 03/25/2016 Comp Metabolic Eak256 ALBUMIN 4.6 g/dL 03/25/2016 Comp Metabolic Sga757 TPRO 7.4 g/dL 03/25/2016 Comp Metabolic Fns552 GLOB 2.8 g/dL 03/25/2016 Comp Metabolic Hbb178 A/G Ratio 1.7 Ratio 03/25/2016 Comp Metabolic Kag256 Osmo 282 mOsmo 03/25/2016 Tsh Ord6 hTSH [...] 32.0 pg 03/25/2016 Cbc With Differential Ord2 [place]% 9.4 % 03/25/2016 Cbc With Differential Ord2 [...] 3.20 K/ul 03/25/2016 Cbc With Differential Ord2 [place] ABS# 0.8 K/ul 03/25/2016 Cbc With Differential Ord2 Eos ABS# 0.8 K/ul 03/25/2016 Cbc With Differential Ord2 Baso ABS# 0.0 K/ul 03/25/2016 GFR CALC 5759787 GFR AA >60 ML/MIN 03/14/2012 GFR CALC 6549898 GFR NON-AA >60 ML/MIN 03/14/2012 TSH 5321943 TSH 2.609 uIU/ML 03/14/2012 LIPID GRP HDL [...] 14 20280419 CREATININE 0.78 MG/DL 03/14/2012 CHEM 20280419 CALCIUM 9.9 MG/DL 03/14/2012 CHEM 14 4904914 POTASSIUM 4.2 MMOL/L 03/14/2012 CHEM 14 20280419 PROT TOT 7.4 GM/DL 03/14/2012 CHEM 14 20280419 GLUCOSE 91 MG/DL 03/14/2012 CHEM 14 20280419 BICARB 27 MMOL/L 03/14/2012 CHEM 14 1715147 ANION GAP 8 MEQ/L 03/14/2012 CBC 4175004 WBC 5.9 10e9/L 03/14/2012 CBC 2882515 RBC 4.62 10e12/L 03/14/2012 CBC 8487302 HGB 14.5 g/dL 03/14/2012 CBC 8115540 HCT DET 42.4 % 03/14/2012 CBC 4407017 MCV 91.8 fL 03/14/2012 CBC 3874596 MCH 31.4 pg 03/14/2012 CBC 5731261 MCHC 34.2 g/dL 03/14/2012 CBC 1711065 PLT 370 10e9/L 03/14/2012 CBC 2983465 MPV 10.2 fL 03/14/2012 CBC 7625598 NANO % 36.6 % 03/14/2012 CBC 7227398 LY % 47.6 % 03/14/2012 CBC 2555535 MON % 10.0 % 03/14/2012 CBC 7460603 EOS % 5.6 % 03/14/2012 CBC 7852249 BASO % 0.2 % 03/14/2012 CBC 6708074 RDW 12.3 % 03/14/2012 CBC 0185493 ABS NANO 2.16 10e9/L 03/14/2012 CBC 1646550 ABS LYMPH 2.81 10e9/L 03/14/2012 CBC 9126270 ABS MONO 0.59 10e9/L 03/14/2012 CBC 6501378 ABS EOS 0.33 10e9/L 03/14/2012 CBC 3032910 ABS BASO 0.01 10e9/L 03/14/2012 CBC 1488064 RDW-SD 40.4 fL 03/14/2012 Review of Systems [...] Formatting Model/CDA Sections, Assigned to/Juana Ji CPT-4: 55285Epqpcpl 06/28/2018 DRAIN/INJECT JOINT/BURSA CPT-4: 98940 01/29/2018 TRIAMCINOLONE ACET INJ NOS CPT-4: J3301 01/29/2018 PPPS, SUBSEQ VISIT CPT- 4: G0439 01/08/2018 THER/PROPH/DIAG INJ SC/IM CPT-4: 75283 08/21/2017 TRIAMCINOLONE ACET INJ NOS CPT-4: J3301 08/21/2017 ADMIN INFLUENZA VIRUS VAC CPT-4: G0008 07/18/2017 FLU VACC PRSV FREE INC ANTIG CPT-4: 10066 07/18/2017 TRIAMCINOLONE ACET INJ NOS CPT-4: J3301 06/30/2017 TRIAMCINOLONE ACET INJ NOS CPT-4: J3301 05/09/2017 THER/PROPH/DIAG INJ SC/IM CPT-4: 85313 05/09/2017 TRIAMCINOLONE ACET INJ NOS CPT-4: J3301 01/30/2017 PPPS, SUBSEQ VISIT CPT- 4: G0439 01/02/2017 ADMIN INFLUENZA VIRUS VAC CPT-4: G0008 07/13/2016 FLU VACC PRSV FREE INC ANTIG CPT-4: 83266 07/13/2016 ADMIN INFLUENZA VIRUS VAC CPT-4: G0008 07/10/2015 FLU VACC 4 KARI 3 YRS PLUS IM Formatting Model/CDA Sections, Assigned to/Juana Ji CT: [id number] CPT-4: 30442Icwfyxv 07/10/2015 TRIAMCINOLONE ACET INJ NOS CPT-4: J3301 05/29/2015 ROCEPHIN, PER 250 MG CPT- 4: J0696 05/29/2015 THER/PROPH/DIAG INJ SC/IM CPT-4: 45175 10/15/2014 TRIAMCINOLONE ACET INJ NOS CPT-4: J3301 10/15/2014 ROCEPHIN, PER 250 MG CPT- 4: J0696 10/15/2014 THER/PROPH/DIAG INJ SC/IM CPT-4: 45970 02/17/2014 TRIAMCINOLONE ACET INJ NOS CPT-4: J3301 02/17/2014 ROCEPHIN, PER 250 MG CPT- 4: J0696 12/05/2013 ADMIN INFLUENZA VIRUS VAC CPT-4: G0008 07/09/2013 FLULAVAL VACC, 3 YRS & >, IM CPT-4: Q2036 07/09/2013 ROCEPHIN, PER 250 MG CPT- 4: J0696 10/23/2012 PRESCRIP TRANSMIT VIA ERX SY CPT-4: G8553 10/23/2012 ROUTINE VENIPUNCTURE CPT- 4: 30934 03/14/2012 ADMIN INFLUENZA VIRUS VAC CPT-4: G0008 07/05/2011 FLULAVAL VACC, 3 YRS & >, IM CPT-4: Q2036 07/05/2011 ROUTINE VENIPUNCTURE CPT- 4: 97282 06/28/2011 PRESCRIP TRANSMIT VIA ERX SY CPT-4: G8553 06/27/2011 Vital Signs Date Vital 01/24/2019 Blood Pressure 1: 138/74 Code: 8480-6 BMI: 32.9 Code: 44404-6 Heart Rate 1: 74 bpm Height: 5'2" SpO2: 97% Weight: 180 lbs 12/03/2018 Blood Pressure 1: 134/72 Code: 8480-6 BMI: 31.1 Code: 69571-9 Heart Rate 1: 89 bpm Height: 5'2" SpO2: 99% Weight: 170 lbs 11/19/2018 Blood Pressure 1: 134/56 Code: 8480-6 BMI: 31.1 Code: 87773-6 Heart Rate 1: 88 bpm Height: 5'2" SpO2: 98% Weight: 170 lbs 11/07/2018 Blood Pressure 1: 140/70 Code: 8480-6 BMI: 31.1 Code: 68724-0 Heart Rate 1: 91 bpm Height: 5'2" SpO2: 99% Weight: 170 lbs 09/04/2018 Blood Pressure 1: 140/80 Code: 8480-6 BMI: 31.3 Code: 82201-3 Heart Rate 1: 82 bpm Height: 5'2" SpO2: 95% Weight: 171 lbs 07/10/2018 Blood Pressure 1: 144/46 Code: 8480-6 BMI: 31.5 Code: 65460-4 Heart Rate 1: 86 bpm Height: 5'2" SpO2: 97% Weight: 172 lbs 06/19/2018 Blood Pressure 1: 150/80 Code: 8480-6 BMI: 31.5 Code: 57675-4 Heart Rate 1: 94 bpm Height: 5'2" SpO2: 96% Weight: 172 lbs 6 oz 01/29/2018 Blood Pressure 1: 148/66 Code: 8480-6 BMI: 31.8 Code: 09305-4 Heart Rate 1: 80 bpm Height: 5'2" SpO2: 96% Weight: 174 lbs 01/08/2018 Blood Pressure 1: 122/72 Code: 8480-6 BMI: 32.0 Code: 07844-9 Heart Rate 1: 79 bpm Height: 5'2" SpO2: 99% Weight: 175 lbs 08/21/2017 Blood Pressure 1: 162/78 Code: 8480-6 BMI: 32.2 Code: 54014-9 Heart Rate 1: 82 bpm Height: 5'2" SpO2: 97% Temperature: 36.6 (C) / 97.8 (F) Weight: 176 lbs 07/18/2017 Blood Pressure 1: 136/70 Code: 8480-6 BMI: 31.9 Code: 17763-5 Heart Rate 1: 81 bpm Height: 5'2" SpO2: 96% Weight: 174 lbs 8 oz 06/30/2017 Blood Pressure 1: 128/74 Code: 8480-6 BMI: 31.8 Code: 66727-8 Heart Rate 1: 89 bpm Height: 5'2" SpO2: 97% Weight: 174 lbs 05/08/2017 Blood Pressure 1: 148/82 Code: 8480-6 BMI: 30.9 Code: 20138-2 Heart Rate 1: 79 bpm Height: 5'2" SpO2: 95% Weight: 169 lbs 02/14/2017 Blood Pressure 1: 126/72 Code: 8480-6 Heart Rate 1: 76 bpm Height: 5'2" SpO2: 97% Weight: 01/31/2017 Blood Pressure 1: 154/80 Code: 8480-6 BMI: 32.0 Code: 30731-4 Heart Rate 1: 81 bpm Height: 5'2" SpO2: 97% Weight: 175 lbs 01/30/2017 Blood Pressure 1: 136/78 Code: 8480-6 Heart Rate 1: 92 bpm Height: 5'2" SpO2: 96% Temperature: 37.4 (C) / 99.3 (F) Weight: 01/02/2017 Blood Pressure 1: 146/66 Code: 8480-6 BMI: 31.8 Code: 22649-3 Heart Rate 1: 81 bpm Height: 5'2" SpO2: 98% Weight: 174 lbs 12/29/2016 Blood Pressure 1: 140/78 Code: 8480-6 BMI: 31.8 Code: 26370-7 Heart Rate 1: 88 bpm Height: 5'2" SpO2: 97% Weight: 174 lbs 03/24/2016 Blood Pressure 1: 132/88 Code: 8480-6 BMI: 31.6 Code: 83173-5 Heart Rate 1: 91 bpm Height: 5'2" SpO2: 99% Weight: 173 lbs 09/25/2015 Blood Pressure 1: 112/60 Code: 8480-6 BMI: 31.3 Code: 20515-9 Heart Rate 1: 85 bpm Height: 5'2" SpO2: 97% Weight: 171 lbs 08/24/2015 Blood Pressure 1: 142/60 Code: 8480-6 BMI: 30.9 Code: 84610-7 Heart Rate 1: 94 bpm Height: 5'2" SpO2: 97% Weight: 169 lbs 06/12/2015 Blood Pressure 1: 122/64 Code: 8480-6 BMI: 31.1 Code: 41296-7 Heart Rate 1: 91 bpm Height: 5'2" SpO2: 97% Weight: 170 lbs 05/29/2015 Blood Pressure 1: 150/78 Code: 8480-6 BMI: 31.6 Code: 65099-7 Heart Rate 1: 79 bpm Height: 5'2" SpO2: 93% Weight: 173 lbs 03/26/2015 Blood Pressure 1: 124/82 Code: 8480-6 BMI: 31.8 Code: 23756-4 Heart Rate 1: 80 bpm Height: 5'2" Respiratory Rate: 20 bpm Weight: 174 lbs 03/17/2015 Blood Pressure 1: 128/78 Code: 8480-6 BMI: 31.8 Code: 09438-1 Heart Rate 1: 84 bpm Height: 5'2" Respiratory Rate: 20 bpm Weight: 174 lbs 10/15/2014 Blood Pressure 1: 130/64 Code: 8480-6 BMI: 32.6 Code: 78912-0 Heart Rate 1: 80 bpm Height: 5'2" Weight: 178 lbs 04/10/2014 Blood Pressure 1: 128/70 Code: 8480-6 BMI: 31.6 Code: 54601-7 Heart Rate 1: 80 bpm Height: 5'2" Weight: 173 lbs 02/17/2014 Blood Pressure 1: 108/58 Code: 8480-6 BMI: 32.0 Code: 37130-0 Heart Rate 1: 80 bpm Height: 5'2" Temperature: 37.4 (C) / 99.3 (F) Weight: 175 lbs 12/05/2013 Blood Pressure 1: 144/80 Code: 8480-6 Heart Rate 1: 72 bpm SpO2: 98% Temperature: 36.9 (C) / 98.4 (F) Weight: 177 lbs 09/25/2013 Blood Pressure 1: 136/82 Code: 8480-6 BMI: 32.7 Code: 55751-3 Heart Rate 1: 84 bpm Height: 5'2" Weight: 179 lbs 07/09/2013 Blood Pressure 1: 144/70 Code: 8480-6 BMI: 32.0 Code: 11760-0 Heart Rate 1: 76 bpm Height: 5'2" Weight: 175 lbs 2013 Blood Pressure 1: 128/72 Code: 8480-6 BMI: 31.8 Code: 87819-6 Heart Rate 1: 68 bpm Height: 5'2" Weight: 174 lbs 03/22/2013 Blood Pressure 1: 128/68 Code: 8480-6 BMI: 31.8 Code: 54036-9 Heart Rate 1: 68 bpm Height: 5'2" Weight: 174 lbs 02/28/2013 Blood Pressure 1: 128/72 Code: 8480-6 BMI: 31.5 Code: 73790-3 Heart Rate 1: 80 bpm Height: 5'2" Weight: 172 lbs 10/23/2012 Blood Pressure 1: 124/78 Code: 8480-6 Heart Rate 1: 68 bpm Temperature: 36.8 (C) / 98.2 (F) Weight: 172 lbs 03/08/2012 Blood Pressure 1: 124/68 Code: 8480-6 Heart Rate 1: 80 bpm Weight: 171 lbs 09/28/2011 Blood Pressure 1: 112/58 Code: 8480-6 BMI: 31.6 Code: 32571-2 Heart Rate 1: 76 bpm Height: 5'2" Respiratory Rate: 16 bpm Weight: 173 lbs 06/27/2011 Blood Pressure 1: 117/61 Code: 8480-6 BMI: 30.4 Code: 69255-1 Heart Rate 1: 86 bpm Height: 5'3" [...] 3 days per week 01/08/2018 works at [employer] Annual Medicare Wellness Exam Handling Stress often [...] 03/08/2012 Works 3 days per week at [employer], is retired osteoarthritis Frequency of Episodes unchanged [...] data Encounters Encounter Performer Location Codes Date ([id number]) 19343 EST. PATIENT, LEVEL IV Diagnosis: Essential (primary) hypertension[ICD10: I10] Diagnosis: Mild intermittent asthma, uncomplicated[ICD10: J45.20] Deneen Rosenberg MD, [facility] CPT-4: 13165 01/24/2019 [id number] EST. PATIENT, LEVEL III Diagnosis: Encounter for follow-up examination after completed treatment for conditions other than malignant neoplasm[ICD10: Z09] Diagnosis: Low back pain[ICD10: M54.5] Chastity Rosenberg MD, [facility] CPT-4: 34084 12/03/2018 ([id number]) 50765 EST. PATIENT, LEVEL III Diagnosis: Postherpetic trigeminal neuralgia[ICD10: B02.22] Deneen Rosenberg MD, [facility] CPT-4: 89622 11/19/2018 ([id number] EST. PATIENT, LEVEL III Diagnosis: Chronic obstructive pulmonary disease with (acute) exacerbation[ICD10: J44.1] Diagnosis: Postherpetic trigeminal neuralgia[ICD10: B02.22] Deneen Rosenberg MD, [facility] CPT-4: 30924 11/07/2018 ([id number]) 98794 EST. PATIENT, LEVEL IV Diagnosis: Essential (primary) hypertension[ICD10: I10] Diagnosis: Chronic frontal sinusitis[ICD10: J32.1] Deneen Rosenberg MD, [facility] CPT-4: 30844 09/04/2018 ([id number]) 63571 EST. PATIENT, LEVEL III Diagnosis: Other retention of urine[ICD10: R33.8] Diagnosis: Mild intermittent asthma with (acute) exacerbation[ICD10: J45.21] Deneen Rosenberg MD, [facility] CPT-4: 11164 07/10/2018 ([id number]) 45874 EST. PATIENT, LEVEL IV Diagnosis: Primary hyperparathyroidism[ICD10: E21.0] Diagnosis: Personal history of other diseases of the musculoskeletal system and connective tissue[ICD10: Z87.39] Deneen Rosenberg MD, [facility] CPT-4: 12447 06/19/2018 [id number] EST. PATIENT, LEVEL III Diagnosis: Low back pain[ICD10: M54.5] Diagnosis: Sciatica, right side[ICD10: M54.31] Chastity Rosenberg MD, [facility] CPT- 4: 10331 01/29/2018 [id number] EST. PATIENT, LEVEL III Diagnosis: Mild intermittent asthma with (acute) exacerbation[ICD10: J45.21] Diagnosis: Cough[ICD10: R05] Diagnosis: Other allergic rhinitis[ICD10: J30.89] Chastity Rosenberg MD, [facility] CPT- 4: 54424 08/21/2017 ([id number]) 61082 EST. PATIENT, LEVEL IV Diagnosis: Mild intermittent asthma with (acute) exacerbation[ICD10: J45.21] Diagnosis: Essential (primary) hypertension[ICD10: I10] Diagnosis: Encounter for immunization[ICD10: Z23] Diagnosis: Sciatica, right side[ICD10: M54.31] Diagnosis: Low back pain[ICD10: M54.5] Deneen Rosenberg MD, [facility] CPT-4: 50944 07/18/2017 ([id number]) 83055 EST. PATIENT, LEVEL III Diagnosis: Cough[ICD10: R05] Diagnosis: Other allergic rhinitis[ICD10: J30.89] Lalitha Rosenberg MD, [facility] CPT-4: 52920 06/30/2017 80790 EST. PATIENT, LEVEL III Diagnosis: Low back pain[ICD10: M54.5] Diagnosis: Dizziness and giddiness[ICD10: R42] Chastity Rosenberg MD, [facility] CPT- 4: 08071 05/08/2017 ([id number]) 45835 EST. PATIENT, LEVEL III Diagnosis: Essential (primary) hypertension[ICD10: I10] Diagnosis: Low back pain[ICD10: M54.5] Diagnosis: Sciatica, right side[ICD10: M54.31] Deneen Rosenberg MD, [facility] CPT- 4: 09237 02/14/2017 ([id number]) 64234 EST. PATIENT, LEVEL III Diagnosis: Essential (primary) hypertension[ICD10: I10] Deneen Rosenberg MD, [facility] CPT-4: 09217 01/31/2017 ([id number]) 51235 EST. PATIENT, LEVEL III Diagnosis: Cough[ICD10: R05] Diagnosis: Acute recurrent maxillary sinusitis[ICD10: J01.01] Lalitha Rosenberg MD, [facility] CPT-4: 28310 01/30/2017 ([id number]) 37305 EST. PATIENT, LEVEL III Diagnosis: Essential (primary) hypertension[ICD10: I10] Diagnosis: Mild intermittent asthma with (acute) exacerbation[ICD10: J45.21] Diagnosis: Tinea corporis[ICD10: B35.4] Deneen Rosenberg MD, [facility] CPT-4: 92280 12/29/2016 ([id number]) Miscellaneous no charge Diagnosis: Epistaxis[ICD10: R04.0] Chastity Rosenberg MD, [facility] CPT-4: 69937 04/01/2016 ([id number]) 55970 EST. PATIENT, LEVEL IV Diagnosis: Essential (primary) hypertension[ICD10: I10] Diagnosis: Mild intermittent asthma, uncomplicated[ICD10: J45.20] Diagnosis: Insomnia, unspecified[ICD10: G47.00] Lalitha Rosenberg MD, [facility] CPT-4: 38532 03/24/2016 79623 EST. PATIENT, LEVEL III Diagnosis: Mild intermittent asthma with (acute) exacerbation[ICD10: J45.21] Diagnosis: Epistaxis[ICD10: R04.0] Chastity Rosenberg MD, [facility] CPT-4: 74197 09/25/2015 ([id number]) 17521 EST. PATIENT, LEVEL III Diagnosis: Acute recurrent maxillary sinusitis[ICD10: J01.01] Diagnosis: Allergic rhinitis due to pollen[ICD10: J30.1] Lalitha Rosenberg MD, [facility] CPT-4: 04397 08/24/2015 ([id number]) 82814 EST. PATIENT, LEVEL IV Diagnosis: Well woman exam[ICD9: V70.0] Diagnosis: Encounter for screening for malignant neoplasm of vagina[ICD10: Z12.72] Diagnosis: Pelvic and perineal pain[ICD10: R10.2] Lalitha Rosenberg MD, [facility] CPT-4: 95075 06/12/2015 ([id number]) 22971 EST. PATIENT, LEVEL III Diagnosis: Tinea corporis[ICD9: 110.5] Diagnosis: ACUTE MAXILLARY SINUSITIS[ICD9: 461.0] Lalitha Rosenberg MD, [facility] CPT-4: 34144 05/29/2015 ([id number]) 55182 EST. PATIENT, LEVEL IV Diagnosis: Skin tag[ICD9: 701.9] Diagnosis: Seborrheic keratoses[ICD9: 702.19] Diagnosis: Comedone[ICD9: 706.1] Diagnosis: IMPACTED CERUMEN[ICD9: 380.4] Rosemarie Rosenberg MD, [facility] CPT-4: 44629 03/26/2015 ([id number]) 95112 EST. PATIENT, LEVEL IV Diagnosis: ESSENTIAL HYPERTENSION[ICD9: 401.9] Diagnosis: HYPERLIPIDEMIA[ICD9: 272.4] Diagnosis: Fatigue[ICD9: 780.79] Diagnosis: INSECT BITE HIP/LEG[ICD9: 916.4] Rosemarie Rosebnerg MD, [facility] CPT-4: 47839 03/17/2015 ([id number]) 79275 EST. PATIENT, LEVEL IV Diagnosis: Acute bronchitis[ICD9: 466.0] Diagnosis: MALAISE AND FATIGUE[ICD9: 780.79] Diagnosis: COUGH[ICD9: 786.2] Diagnosis: CHRONIC OBSTRUCTIVE ASTHMA WITH EXACERBATION[ICD9: 493.22] Deneen oRsenberg MD, [facility] CPT-4: 89868 10/15/2014 ([id number]) 39557 EST. PATIENT, LEVEL III Diagnosis: Acute anterior epistaxis[ICD9: 784.7] Diagnosis: ESSENTIAL HYPERTENSION[ICD9: 401.9] Lalitha Rosenberg MD, [facility] CPT-4: 67174 04/10/2014 ([id number]) 94315 EST. PATIENT, LEVEL III Diagnosis: Acute bronchitis[ICD9: 466.0] Diagnosis: COUGH[ICD9: 786.2] Diagnosis: Nasal congestion[ICD9: 478.19] Deneen Rosenberg MD, [facility] CPT-4: 16759 02/17/2014 ([id number]) 76465 EST. PATIENT, LEVEL III Diagnosis: ACUTE SINUSITIS[ICD9: 461.9] Lalitha Rosenberg MD, [facility] CPT-4: 07342 12/05/2013 ([id number]) 32086 EST. PATIENT, LEVEL IV Diagnosis: HYPERLIPIDEMIA[ICD9: 272.4] Diagnosis: CHRONIC OBSTRUCTIVE ASTHMA[ICD9: 493.20] Diagnosis: SLEEP APNEA NOS[ICD9: 780.57] Diagnosis: GENERAL OSTEOARTHROSIS-MULT[ICD9: 715.09] Deneen Rosenberg MD, [facility] CPT-4: 89559 09/25/2013 ([id number]) 78733 EST. PATIENT, LEVEL III Diagnosis: CHRONIC OBSTRUCTIVE ASTHMA[ICD9: 493.20] Deneen Rosenberg MD, [facility] CPT-4: 71319 07/09/2013 ([id number]) Miscellaneous no charge Diagnosis: CHRONIC OBSTRUCTIVE ASTHMA[ICD9: 493.20] Deneen Rosenberg MD, [facility] CPT-4: 86258 06/11/2013 ([id number]) 94026 EST. PATIENT, LEVEL IV Diagnosis: CHRONIC OBSTRUCTIVE ASTHMA[ICD9: 493.20] Diagnosis: Sleep apnea[ICD9: 780.57] Deneen Rosenberg MD, [facility] CPT-4: 48595 2013 ([id number]) 50064 EST. PATIENT, LEVEL IV Diagnosis: CHRONIC OBSTRUCTIVE ASTHMA[ICD9: 493.20] Diagnosis: OSTEOARTH NOS-UNSPEC[ICD9: 715.90] Diagnosis: MALAISE AND FATIGUE[ICD9: 780.79] Deneen Rosenberg MD, [facility] CPT- 4: 70760 03/22/2013 ([id number]) 37412 EST. PATIENT, LEVEL IV Diagnosis: HYPERLIPIDEMIA[ICD9: 272.4] Diagnosis: OSTEOARTH NOS-UNSPEC[ICD9: 715.90] Diagnosis: MALAISE AND FATIGUE[ICD9: 780.79] Deneen Rosenberg MD, [facility] CPT- 4: 48379 02/28/2013 ([id number]) 22860 EST. PATIENT, LEVEL III Diagnosis: ACUTE SINUSITIS[ICD9: 461.9] Diagnosis: COUGH[ICD9: 786.2] Lalitha Rosenberg MD, [facility] CPT-4: 63568 10/23/2012 ([id number]) 44886 EST. PATIENT, LEVEL IV Diagnosis: ESSENTIAL HYPERTENSION[SNOMED: 37612716] Diagnosis: HYPERLIPIDEMIA[ICD9: 272.4] Diagnosis: CHRONIC OBSTRUCTIVE ASTHMA[ICD9: 493.20] Deneen Rosenberg MD, [facility] CPT-4: 22093 03/08/2012 ([id number]) 54279 EST. PATIENT, LEVEL IV Diagnosis: CHRONIC OBSTRUCTIVE ASTHMA[ICD9: 493.20] Diagnosis: Primary generalized (osteo)arthritis[ICD9: 715.09] Diagnosis: PAIN IN LIMB[ICD9: 729.5] Deneen Rosenberg MD, [facility] CPT-4: 65844 09/28/2011 [id number] EST. PATIENT, LEVEL IV Diagnosis: ACUTE SINUSITIS[ICD9: 461.9] Diagnosis: Asthma[ICD9: 493.90] Diagnosis: Osteoarthritis[ICD9: 715.90] Diagnosis: Hyperlipidemia[ICD9: 272.4] Lalitha Rosenberg MD, [facility] CPT-4: 54769 06/27/2011 Plan of Care Planned Activity Notes [...] and proair. 01/24/2019 Appointment: Deneen Rosenberg WPtel: [phone] (15 min) Moderate 01/24/2019 Patient Education: Patient [...] or concerns. 12/03/2018 Appointment: Chastity Chavira WPtel: [facility] (30 min) Complex 12/03/2018 Patient Education: Patient Medication Summary Completed 12/03/2018 Patient Education: Back Pain Completed 12/03/2018 Visit Plan: Post-herpetic neuralgia - pt to stop acyclovir - finish dose of steroid - monitor symptoms, call if symptoms return. 11/19/2018 Appointment: Deneen Rosenberg WPtel: [address] [place], [place] [id number] (15 min) Moderate 11/19/2018 Patient Education: Patient Medication Summary Completed 11/19/2018 Visit Plan: Trigeminal Neuralgia - due to shingles - rx for prednisone taper and valcyvlovir 1 gram bid. COPD - rx for albuterol and proair. 11/07/2018 Appointment: Deneen Rosenberg WPtel: [phone] (15 min) Moderate 11/07/2018 Patient Education: Patient [...] days. 09/04/2018 App[facility]ment[phone] [phone] [place] (15 min) Moderate 09/04/2018 Patient Education: Patient Medication Summary Completed 09/04/2018 Patient Education: Hypertension Completed 09/04/2018 Visit Plan: Asthma - chronic problem for this patient. We have reviewed chronic treatment strategy, symptom control, and plans for acute exacerbations. No changes today to the current treatment plan as the patient is stable, monitor for acute changes 07/10/2018 Appointment: [phone] [place] (15 min) Moderate 07/10/2018 Patient Education: Patient Medication Summary Completed 07/10/2018 Appointment: Injection 06/28/2018 Patient Education: Patient Medication Summary Completed 06/28/2018 Visit Plan: Elevated PTH - parathyroid nuclear medicine uptake at [facility] in nursery - 06/26, , are open Osteopenia - discussed the pt's dx and the fact that insurance will not pay for prolia due to lack of dx of Osteoporosis. 06/19/2018 Appointment: [phone] [id number] [place] (15 min) Moderate 06/19/2018 Patient Education: [...] injection. 01/29/2018 Appointment: Chastity Chavira WPtel: [phone] [facility] [place] (30 min) Complex 01/29/2018 Patient Education: [...] care surrogate. 01/08/2018 Appointment: Lalitha Alcala WPtel: [id number] [facility] - Annual Wellness Visit 01/08/2018 Patient Education: [...] changes 07/18/2017 Appointment: [phone] (15 min) Moderate 07/18/2017 Patient Education: Patient [...] persist 06/30/2017 Appointment: Lalith[facility] Alcala [facility]Ptel[phone] [facility] (15 min) Moderate 06/30/2017 Patient Education: [...] or concerns. 05/08/2017 Appointment: Chastity Chavira WPtel: [facility] (30 min) Complex 05/08/2017 Patient Education: [...] they worsen. 02/14/2017 Appointment: Deneen Rosenberg WPtel: [facility] (15 min) Moderate 02/14/2017 Patient Education: Patient Medication Summary Completed 02/14/2017 Care Plan: Referral Order SNOMED-CT : [id number] Pending 02/14/2017 Appointment: Deneen Rosenberg WPtel: [facility] (15 min) Moderate 02/01/2017 Visit Plan: Hypertension - well controlled - continue with current medications, continue with no added salt diet. Pt has been encouraged to exercise daily. The pt has been advised to call the office if there are any acute concerns about change in blood pressure readings at home. Cough - improved from yesterday. 01/31/2017 Appointment: Deneen Rosenberg WPtel: [facility] (15 min) Moderate 01/31/2017 Patient Education: Patient Medication Summary Completed 01/31/2017 Patient Education: Obesity Completed 01/31/2017 Patient Education: Hypertension Completed 01/31/2017 Visit Plan: Sinusitis - Pt has acute infection - pain in face, maxillary region, Pt informed to use decongestant, RX given to patient, sinus rinses also recommended. Call if symptoms do not show improvement. 01/30/2017 Appointment: Lalitha Alcala WPtel: [phone] (15 min) Moderate 01/30/2017 Patient Education: Patient [...] shampoo. 12/29/2016 Appointment: D[facility] Rosenberg [facility]el[id number] (15 min) Moderate 12/29/2016 Patient Education: Patient Medication Summary Completed 12/29/2016 Patient Education: Obesity Completed 12/29/2016 Patient Education: Hypertension Completed 12/29/2016 Patient Education: Patient Medication Summary Completed 12/26/2016 Appointment: Injection 07/13/2016 Patient Education: Patient Medication Summary Completed 07/13/2016 Visit Plan: Pt went to ED from office, stating she does not think she will be able to get to her ENT in [place]. 04/01/2016 Appointment: Lalith[facility] Alcala [facility]el[phone] (30 min) Complex 04/01/2016 Patient Education: [...] when traveling 03/24/2016 Appointment: Lalitha Alcala WPtel: [address] [place], [place] [phone] (30 min) [facility] 03/24/2016 Patient Education: Patient Medication Summary [...] Care Plan: COMPLETE CBC AUTOMATED LOINC : 87798-1 Ordered 03/17/2015 Visit Plan: Asthma EXACERBATION - [...] acutely worsen. 10/15/2014 Appointment: Deneen Rosenberg WPtel: [id number] [facility] 10/15/2014 Patient Education: Patient Medication Summary [...] show improvement. 12/05/2013 Appointment: Lalitha Alcala WPtel: [facility] [place] [address] 12/05/2013 Patient Education: Patient Medication Summary Completed 12/05/2013 Appointment: Deneen Rosenberg WPtel: [facility] Follow up 10/01/2013 Visit Plan: Hyperlipidemia - [...] cpap. 09/25/2013 Appointment: Deneen Rosenberg [facility]Ptel: [phone] [facility] [place] Follow up 09/25/2013 Patient Education: Patient Medication Summary Completed 09/25/2013 Visit Plan: Asthma - chronic problem for this patient. We have reviewed chronic treatment strategy, symptom control, and plans for acute exacerbations. No changes today to the current treatment plan as the patient is stable, monitor for acute changes 07/09/2013 Appointment: Deneen Rosenberg WPtel: [facility] Follow up 07/09/2013 Patient Education: Patient Medication Summary Completed 07/09/2013 Appointment: Deneen Rosenberg WPtel: [facility] Follow up 07/01/2013 Appointment: Lalitha Alcala WPtel: [phone] [phone] Lab Draw 06/11/2013 Patient Education: Patient Medication [...] noctural hypoxemia. 2013 Appointment: Deneen Rosenberg WPtel: [facility] Other 2013 Patient Education: Patient Medication Summary [...] TUNNEL ENTRAPMENT. 03/22/2013 Appointment: Deneen Rosenberg WPtel: [facility] [place] Other 03/22/2013 Patient Education: Patient Medication [...] check labs. 02/28/2013 Appointment: Deneen Rosenberg WPtel: [facility] Follow up 02/28/2013 Patient Education: Patient Medication Summary Completed 02/28/2013 Visit Plan: Sinusitis - Pt has acute infection - pain in face, maxillary region, Pt informed to use decongestant, RX given to patient, sinus rinses also recommended. Call if symptoms do not show improvement. Rocephin injection today in the office 10/23/2012 Appointment: Lalitha Alcala WPtel: [phone] [place] Sick 10/23/2012 Patient Education: Patient Medication Summary Completed 10/23/2012 Appointment: Deneen Rosenberg WPtel: [facility] [place] Lab Draw 03/14/2012 Patient Education: Patient [...] to medications. 03/08/2012 Appointment: Deneen Rosenberg WPtel: [facility] [place] Other 03/08/2012 Patient Education: Patient Medication Summary Completed 03/08/2012 Patient Education: High Blood Pressure: Essential Hypertension Completed 03/08/2012 Visit Plan: Asthma- controlled by the current medication.. No change in the treatment at this time. Osteoarthritis- pt has been instructed to use celebrex twice daily on the days that she is working. 09/28/2011 Appointment: Deneen Rosenberg WPtel: [facility] Follow up 09/28/2011 Patient Education: Patient Medication Summary Completed 09/28/2011 Appointment: Deneen Rosenberg WPtel: [id number] [place] Injection 07/05/2011 Patient Education: Patient Medication Summary Completed 07/05/2011 Appointment: Deneen Rosenberg WPtel: [facility] Lab Draw 06/28/2011 Patient Education: Patient Medication [...] as indicated. 06/27/2011 Appointment: Lalitha Alcala WPtel: [address] [place], [place] [phone] Other 06/27/2011 Patient Education: Patient Medication Summary Completed 06/27/2011 Care Plan: CBC (COMPLETE CBC W/AUTO DIFF WBC) LOINC : 10822-3 Ordered 06/27/2011 Care Plan: CHEM 14 (COMPREHEN METABOLIC PANEL) LOINC : 85590-2 Ordered 06/27/2011 Care Plan: LIPID GRP (LIPID PANEL) LOINC : 62546-8 Ordered 06/27/2011 Care Plan: TSH (ASSAY THYROID [...] prn. Vaginal dryness-samples of estrace cream . Asthma - chronic problem for this [...] patient and checks labs as indicated. . Post-herpetic neuralgia - pt to stop acyclovir - finish dose of steroid - monitor symptoms, call if symptoms return. . Medicare Exam - today we discussed [...] pain occurs at the site of injection. Breathing treatments 3 times a day x [...] with any changes, questions or concerns. . Hypertension - well [...] PTH - parathyroid nuclear medicine uptake at [facility] in nursery - 06/26, 12 , 13 are open [...] able to get to her ENT in [place]. . Sinusitis - Pt has acute infection [...]
--- OUTSIDE RECORDS SUMMARY | 2019-04-16 05:31 | XMS REPORT | CCD ---
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) and also during college she was exposed to smoke during her work in college 2013 Marital status Unknown Since 200406/26/2011 Number of children Unknown 3 2 daughters, 1 son 06/26/[address]: 131177558 Never drinks alcohol 06/26/2011 Has the patient [...] PENICILLINS Unknown 06/26/2011 No Inactive Date Active [id number] REDUCTASE INHIBITORS Unknown 06/26/2011 No Inactive Date [...] 06/11/2015 Unknown Pelvic and perineal pain ICD-9: [id number] ICD-10: R10.2 Active 06/11/2015 Unknown Well woman [...] 06/11/2015 Active Pelvic and perineal pain ICD-9: [id number] ICD-10: R10.2 06/11/2015 Active Well woman exam [...] Start Date Stop Date Status Fill Instructions lidocaine 4 % topical patch RxNorm: 4514725 1 Patch TOP UD 12/03/2018 No Stop Date Active if too expensive get OTC salon pas amlodipine 5 mg tablet RxNorm: 099350 1 Tablet(s) PO daily 11/09/2018 06/06/2019 Active ProAir HFA 90 mcg/actuation aerosol inhaler RxNorm: 5999216 1-2 INH QID as needed 11/07/2018 03/06/2019 Active prednisone 10 mg tablet RxNorm: 727919 1 Tablet(s) PO UD 2tabs bid x3days, then 2tabs AM and 1tabPM x3days, then 1tab BID x 3days then 1tab AM x 3 days then stop 11/07/2018 No Stop Date Active albuterol sulfate 1.25 mg/3 mL solution for nebulization RxNorm: 279338 3 Milliliter(s) INH Q4 PRN as needed dyspnea from COPD 11/07/2018 11/01/2019 Active valacyclovir 1 gram tablet RxNorm: 515373 1 Tablet(s) PO BID 11/07/2018 11/20/2018 Inactive gemfibrozil 600 mg tablet RxNorm: 862555 1 TABLET(S) PO TAKE ONE TABLET BY MOUTH TWICE DAILY 10/15/2018 07/11/2019 Active Diflucan 150 mg tablet RxNorm: 991773 1 Tablet(s) PO daily 09/04/2018 09/13/2018 Inactive amlodipine 2.5 mg tablet RxNorm: 881047 1 Tablet(s) PO daily 09/04/2018 11/08/2018 Inactive albuterol sulfate 1.25 mg/3 mL solution for nebulization RxNorm: 853788 3 Milliliter(s) INH Q4 PRN as needed dyspnea 07/10/2018 11/06/2018 Inactive Diflucan 150 mg tablet RxNorm: 925996 1 Tablet(s) PO daily x 3 days then may repeat in 10 days if symptoms are not resolved in throat 06/19/2018 06/30/2018 Inactive Keflex 500 mg capsule RxNorm: 789168 1 Capsule(s) PO TID 06/15/2018 06/21/2018 Inactive Keflex 500 mg capsule RxNorm: 161903 1 Capsule(s) PO TID 06/15/2018 06/14/2018 Inactive paroxetine 20 mg tablet RxNorm: 4171081 TAKE 1/2 TABLET BY MOUTH EVERY DAY 05/09/2018 02/02/2019 Active prednisone 20 mg tablet RxNorm: 007758 2 Tablet(s) PO daily 03/13/2018 03/22/2018 Inactive Celebrex 200 mg capsule RxNorm: 544027 TAKE 1 CAPSULE BY MOUTH TWO TIMES DAILY 03/08/2018 09/03/2018 Inactive - First Attempt Ref: [id number] Singulair 10 mg tablet RxNorm: 509307 Tablet(s) TAKE 1 TABLET BY MOUTH DAILY 02/27/2018 02/21/2019 Active Kenalog 40 mg/mL suspension for injection RxNorm: 8516679 1 Milliliter(s) Inj 02/02/2018 02/02/2018 Inactive Singulair 10 mg tablet RxNorm: 278997 TAKE 1 TABLET BY MOUTH DAILY 01/05/2018 02/26/2018 Inactive - First Attempt Ref: [id number] pantoprazole 40 mg tablet,delayed release RxNorm: 422459 Tablet(s) TAKE 1 TABLET DAILY 12/19/2017 01/07/2018 Inactive gemfibrozil 600 mg tablet RxNorm: 888016 1 TABLET(S) PO TAKE ONE TABLET BY MOUTH TWICE DAILY 12/05/2017 08/31/2018 Inactive albuterol sulfate 1.25 mg/3 mL solution for nebulization RxNorm: 149367 3 Milliliter(s) INH Q4 PRN as needed dyspnea 11/22/2017 05/20/2018 Inactive albuterol sulfate 1.25 mg/3 mL solution for nebulization RxNorm: 127911 3 Milliliter(s) INH Q4 PRN as needed dyspnea 11/02/2017 11/21/2017 Inactive methylprednisolone 4 mg tablets in a dose pack RxNorm: 771169 1 Tablet(s) PO UD 09/01/2017 No Stop Date Active albuterol sulfate 1.25 mg/3 mL solution for nebulization RxNorm: 705906 3 Milliliter(s) INH Q4 PRN as needed dyspnea 09/01/2017 11/01/2017 Inactive Keflex 500 mg capsule RxNorm: 822411 1 Capsule(s) PO TID 09/01/2017 09/10/2017 Inactive methylprednisolone 4 mg tablets in a dose pack RxNorm: 374552 1 Tablet(s) PO UD To start tomorrow 08/21/2017 08/31/2017 Inactive Kenalog 40 mg/mL suspension for injection RxNorm: 2711924 Milliliter(s) Inj 08/21/2017 08/21/2017 Inactive Levaquin 500 mg tablet RxNorm: 293393 1 Tablet(s) PO daily 08/21/2017 08/27/2017 Inactive Ativan 0.5 mg tablet RxNorm: 665531 1 Tablet(s) PO 1 hour before MRI, may repeat dose x1 07/21/2017 07/20/2017 Inactive Ativan 0.5 mg tablet RxNorm: 704575 1 Tablet(s) PO 1 hour before MRI, may repeat dose x1 07/21/2017 07/21/2017 Inactive ProAir HFA 90 mcg/actuation aerosol inhaler RxNorm: 9789929 1-2 INH QID as needed 07/18/2017 11/14/2017 Inactive Kenalog 40 mg/mL suspension for injection RxNorm: 0410453 Milliliter(s) Inj 06/30/2017 06/30/2017 Inactive albuterol sulfate 1.25 mg/3 mL solution for nebulization RxNorm: 615217 3 Milliliter(s) INH Q4 PRN as needed dyspnea 06/07/2017 08/31/2017 Inactive Keflex 500 mg capsule RxNorm: 958601 1 Capsule(s) PO TID 06/02/2017 06/01/2017 Inactive Keflex 500 mg capsule RxNorm: 618178 1 Capsule(s) PO TID 06/02/2017 06/08/2017 Inactive methylprednisolone 4 mg tablets in a dose pack RxNorm: 915418 1 Tablet(s) PO UD To start tomorrow 05/10/2017 08/20/2017 Inactive Kenalog 40 mg/mL suspension for injection RxNorm: 2265661 Milliliter(s) Inj 05/09/2017 05/09/2017 Inactive Voltaren 1 % topical gel RxNorm: 831970 1 Application TOP TID as needed 05/08/2017 No Stop Date Active paroxetine 20 mg tablet RxNorm: 8556440 TAKE 1/2 TABLET BY MOUTH EVERY DAY 05/03/2017 04/27/2018 Inactive gemfibrozil 600 mg tablet RxNorm: 112192 1 TABLET(S) PO TAKE ONE TABLET BY MOUTH TWICE DAILY 02/21/2017 11/17/2017 Inactive Celebrex 200 mg capsule RxNorm: 108982 1 Capsule(s) PO BID 02/08/2017 02/02/2018 Inactive Celebrex 200 mg capsule RxNorm: 090468 1 Capsule(s) PO BID TAKE 1 CAPSULE TWICE DAILY 02/02/2017 02/07/2017 Inactive ketoconazole 2 % shampoo RxNorm: 881753 1 Application TOP daily x 1 week then weekly as needed for rash 01/31/2017 No Stop Date Active DC topical cream ProAir RespiClick 90 mcg/actuation breath activated RxNorm: 4890725 1 -2 INH Q4H as needed ASTHMA 01/31/2017 07/17/2017 Inactive Kenalog 40 mg/mL suspension for injection RxNorm: 1320780 1.5 Milliliter(s) Inj 01/30/2017 01/30/2017 Inactive Levaquin 500 mg tablet RxNorm: 273746 1 Tablet(s) PO daily 01/30/2017 02/05/2017 Inactive Celebrex 200 mg capsule RxNorm: 029454 1 Capsule(s) PO BID TAKE 1 CAPSULE TWICE DAILY 01/30/2017 02/01/2017 Inactive methylprednisolone 4 mg tablets in a dose pack RxNorm: 382424 1 Tablet(s) PO UD 01/30/2017 05/08/2017 Inactive ketoconazole 2 % shampoo RxNorm: 076137 1 Application TOP daily x 1 week then weekly as needed for rash 12/30/2016 01/30/2017 Inactive DC topical cream aspirin 81 mg tablet,delayed release RxNorm: 970581 1 Tablet(s) PO daily 12/29/2016 No Stop Date Active ketoconazole 2 % topical cream RxNorm: 300826 1 Application TOP daily x 1 week then weekly as needed for rash 12/29/2016 12/29/2016 Inactive Singulair 10 mg tablet RxNorm: 983309 Tablet(s) TAKE 1 TABLET DAILY 11/30/2016 11/23/2017 Inactive pantoprazole 40 mg tablet,delayed release RxNorm: 237588 Tablet(s) TAKE 1 TABLET DAILY 11/30/2016 11/23/2017 Inactive paroxetine 20 mg tablet RxNorm: 4993759 Tablet(s) TAKE ONE-HALF TABLET BY MOUTH EVERY DAY 11/25/2016 05/02/2017 Inactive paroxetine 20 mg tablet RxNorm: 0639165 Tablet(s) TAKE ONE-HALF TABLET BY MOUTH EVERY DAY 11/17/2016 11/24/2016 Inactive Levaquin 500 mg tablet RxNorm: 118763 1 Tablet(s) PO daily 10/11/2016 11/24/2016 Inactive pantoprazole 40 mg tablet,delayed release RxNorm: 047279 TAKE 1 TABLET DAILY 08/22/2016 11/29/2016 Inactive gemfibrozil 600 mg tablet RxNorm: 014584 1 TABLET(S) PO TAKE ONE TABLET BY MOUTH TWICE DAILY 05/06/2016 01/30/2017 Inactive temazepam 7.5 mg capsule RxNorm: 569984 1 Capsule(s) PO HS PRN 03/24/2016 No Stop Date Active Singulair 10 mg tablet RxNorm: 859749 Tablet(s) TAKE 1 TABLET DAILY 03/07/2016 11/29/2016 Inactive Singulair 10 mg tablet RxNorm: 325613 Tablet(s) TAKE 1 TABLET DAILY 03/07/2016 03/06/2016 Inactive pantoprazole 40 mg tablet,delayed release RxNorm: 197528 TAKE 1 TABLET DAILY 02/15/2016 08/12/2016 Inactive Celebrex 200 mg capsule RxNorm: 910872 1 Capsule(s) PO BID TAKE 1 CAPSULE TWICE DAILY 01/25/2016 01/17/2017 Inactive gemfibrozil 600 mg tablet RxNorm: 691956 1 TABLET(S) PO TAKE ONE TABLET BY MOUTH TWICE DAILY 11/10/2015 05/05/2016 Inactive Patient requests 90 days supply Levaquin 500 mg tablet RxNorm: 139121 1 Tablet(s) PO daily 09/29/2015 10/08/2015 Inactive albuterol sulfate 1.25 mg/3 mL solution for nebulization RxNorm: 288665 3 Milliliter(s) INH PRN as needed dyspnea 09/25/2015 06/06/2017 Inactive Levaquin 500 mg tablet RxNorm: 505925 1 Tablet(s) PO daily 08/24/2015 09/02/2015 Inactive albuterol sulfate HFA 90 mcg/actuation aerosol inhaler RxNorm: 3304240 1-2 Puff(s) INH Q4 PRN as needed 08/24/2015 01/30/2017 Inactive sample and rX provided albuterol sulfate HFA 90 mcg/actuation aerosol inhaler RxNorm: 1219440 1-2 Puff(s) INH Q4 PRN as needed 08/24/2015 08/23/2015 Inactive sample and rX provided paroxetine 20 mg tablet RxNorm: 6952060 Tablet(s) TAKE ONE-HALF TABLET BY MOUTH EVERY DAY 08/21/2015 03/17/2016 Inactive pantoprazole 40 mg tablet,delayed release RxNorm: 010858 1 Tablet(s) PO daily 07/27/2015 07/26/2015 Inactive pantoprazole 40 mg tablet,delayed release RxNorm: 877281 1 Tablet(s) PO daily 07/27/2015 01/22/2016 Inactive gemfibrozil 600 mg tablet RxNorm: 601291 1 TABLET(S) PO TAKE ONE TABLET BY MOUTH TWICE DAILY 07/10/2015 11/09/2015 Inactive nystatin (bulk) 100 million unit powder RxNorm: 1 APPLICATION TOP TID 06/25/2015 07/15/2015 Inactive Kenalog 40 mg/mL suspension for injection RxNorm: 4919589 Milliliter(s) Inj 05/29/2015 05/29/2015 Inactive Keflex 500 mg capsule RxNorm: 417370 1 Capsule(s) PO TID 05/29/2015 06/07/2015 Inactive nystatin (bulk) 100 million unit powder RxNorm: 1 Application TOP TID 05/29/2015 06/18/2015 Inactive ceftriaxone 500 mg solution for injection RxNorm: 8978123 Inj 05/29/2015 05/29/2015 Inactive Fioricet 50 mg-325 mg-40 mg tablet RxNorm: 267696 1 Tablet(s) PO Q6 PRN as needed 04/20/2015 07/18/2015 Inactive Bactroban 2 % topical ointment RxNorm: 921363 1 TOP BID 03/26/2015 No Stop Date Active Align 4 mg capsule RxNorm: 309152 1 Capsule(s) PO daily 03/19/2015 12/28/2016 Inactive Singulair 10 mg tablet RxNorm: 087911 TAKE 1 TABLET DAILY 03/02/2015 02/24/2016 Inactive Bactroban 2 % topical ointment RxNorm: 626888 1 APPLICATION TOP BID 12/02/2014 12/11/2014 Inactive right nare ceftriaxone 500 mg solution for injection RxNorm: 782159 Inj 10/15/2014 10/15/2014 Inactive Keflex 500 mg capsule RxNorm: 745866 1 Capsule(s) PO BID 10/15/2014 10/28/2014 Inactive Kenalog 40 mg/mL suspension for injection RxNorm: 9000562 Milliliter(s) Inj 10/15/2014 10/15/2014 Inactive prednisone 20 mg tablet RxNorm: 385280 1 Tablet(s) PO daily 10/15/2014 10/24/2014 Inactive Tudorza Pressair 400 mcg/actuation breath activated RxNorm: 6901433 1 Puff(s) INH BID 10/15/2014 11/13/2014 Inactive gemfibrozil 600 mg tablet RxNorm: 445397 1 Tablet(s) PO TAKE ONE TABLET BY MOUTH TWICE DAILY 09/29/2014 06/25/2015 Inactive Celebrex 200 mg capsule RxNorm: 984528 1 Capsule(s) PO BID TAKE 1 CAPSULE TWICE DAILY 07/31/2014 07/25/2015 Inactive paroxetine 20 mg tablet RxNorm: 649348 TAKE ONE-HALF TABLET BY MOUTH EVERY DAY 07/15/2014 02/09/2015 Inactive Bactroban 2 % topical ointment RxNorm: 245232 1 Application TOP BID 04/10/2014 04/14/2014 Inactive right nare Singulair 10 mg tablet RxNorm: 126319 1 Tablet(s) PO daily TAKE 1 TABLET DAILY 02/27/2014 02/21/2015 Inactive Celebrex 200 mg capsule RxNorm: 973344 1 Capsule(s) PO BID TAKE 1 CAPSULE TWICE DAILY 02/27/2014 07/30/2014 Inactive ciprofloxacin 500 mg tablet RxNorm: 355013 1 Tablet(s) PO BID 02/17/2014 02/26/2014 Inactive prednisone 20 mg tablet RxNorm: 113084 1 Tablet(s) PO daily 02/17/2014 02/21/2014 Inactive Fioricet 50 mg-325 mg-40 mg tablet RxNorm: 836367 1 Tablet(s) PO Q6 PRN 02/17/2014 05/16/2014 Inactive Kenalog 40 mg/mL suspension for injection RxNorm: 2333910 Milliliter(s) Inj 02/17/2014 02/17/2014 Inactive Bactrim 400 mg-80 mg tablet RxNorm: 885785 1 Tablet(s) PO BID 12/25/2013 12/24/2013 Inactive Omnicef 300 mg capsule RxNorm: 076503 1 Capsule(s) PO BID 12/25/2013 01/03/2014 Inactive please dc the bactrim order. pt states she is allergic. Bactrim 400 mg-80 mg tablet RxNorm: 818738 1 Tablet(s) PO BID 12/25/2013 12/25/2013 Inactive gemfibrozil 600 mg tablet RxNorm: 197949 Tablet(s) PO TAKE ONE TABLET BY MOUTH TWICE DAILY 12/12/2013 09/28/2014 Inactive Rocephin 500 mg solution for injection RxNorm: 333305 Inj 12/05/2013 12/05/2013 Inactive Bactroban 2 % topical ointment RxNorm: 261370 1 Application TOP BID right nare 12/05/2013 12/11/2013 Inactive Keflex 500 mg capsule RxNorm: 223989 1 Capsule(s) PO BID 12/05/2013 12/11/2013 Inactive paroxetine 20 mg tablet RxNorm: 959567 Tablet(s) PO TAKE ONE-HALF TABLET BY MOUTH EVERY DAY 07/15/2013 07/14/2014 Inactive Influenza Virus Vaccine 0.5 mL RxNorm: IM 07/09/2013 07/09/2013 Inactive Singulair 10 mg tablet RxNorm: 659819 Tablet(s) PO TAKE 1 TABLET DAILY 05/30/2013 02/26/2014 Inactive Celebrex 200 mg capsule RxNorm: 971869 Capsule(s) PO TAKE 1 CAPSULE TWICE DAILY 04/13/2013 02/26/2014 Inactive Singulair 10 mg tablet RxNorm: 104625 1 Tablet(s) PO daily 02/28/2013 05/29/2013 Inactive gemfibrozil 600 mg tablet RxNorm: 936340 Tablet(s) PO TAKE ONE TABLET BY MOUTH TWICE DAILY 11/28/2012 12/11/2013 Inactive Rocephin 500 mg Solution for Injection RxNorm: 1173075 1 Milliliter(s) Inj 10/23/2012 10/23/2012 Inactive paroxetine 20 mg tablet RxNorm: 8874286 1/2 Tablet(s) PO daily 07/13/2012 07/14/2013 Inactive TAKE ONE-HALF TABLET BY MOUTH EVERY DAY Fioricet 50 mg-325 mg-40 mg tablet RxNorm: 349822 1 Tablet(s) PO Q6 PRN 04/17/2012 07/15/2012 Inactive gemfibrozil 600 mg tablet RxNorm: 981963 Tablet(s) PO 11/17/2011 11/27/2012 Inactive TAKE ONE TABLET BY MOUTH TWICE DAILY gemfibrozil 600 mg Tab RxNorm: 638507 1 Tablet(s) PO BID 11/16/2011 11/16/2011 Inactive MIDRIN 325 mg-65 mg-100 mg Cap RxNorm: 394470 1 Capsule(s) PO Q4-6H 09/15/2011 04/17/2012 Inactive max 8 tabs/24 hours Influenza Virus Vaccine 0.5 mL RxNorm: IM 07/05/2011 07/05/2011 Inactive Pulmicort Flexhaler 180 mcg/Inhalation Breath Activated RxNorm: 6202065 1 Puff(s) INH daily 06/27/2011 07/26/2011 Inactive Singulair 10 mg tablet RxNorm: 483231 1 Tablet(s) PO daily 06/27/2011 07/26/2011 Inactive Celebrex 200 mg capsule RxNorm: 767831 1 Capsule(s) PO BID 06/27/2011 04/12/2013 Inactive paroxetine 20 mg tablet RxNorm: 5735190 1/2 Tablet(s) PO daily 06/27/2011 07/13/2012 Inactive gemfibrozil 600 mg Tab RxNorm: 119160 1 Tablet(s) PO BID 06/27/2011 11/15/2011 Inactive requests 90 day supply-refilled but needs labs amaury. vitamin B6-vitamin E-magnesium Oral RxNorm: Oral No Start Date Active Advil Oral RxNorm: Oral No Start Date Active gabapentin 100 mg tablet RxNorm: 238544 1 Tablet(s) PO PRN No Start Date Active ranitidine 150 mg tablet RxNorm: 859358 1 Tablet(s) PO daily No Start Date Active Claritin 10 mg tablet RxNorm: 967049 1 Tablet(s) PO daily No Start Date Active Flexeril 5 mg Tab RxNorm: 534170 1/2-2 Tablet(s) PO PRN 1/2-1 po q 8 hours prn back pain or muscle spasms No Start Date Active Dulera 200 mcg-5 mcg/actuation HFA aerosol inhaler RxNorm: 2537321 1 INH BID No Start Date Active gabapentin 300 mg capsule RxNorm: 434212 1 Capsule(s) PO TID No Start Date Active folic acid Oral RxNorm: Oral No Start Date Active baclofen 20 mg tablet RxNorm: 967619 1 Tablet(s) PO TID as needed No Start Date Active vitamin C60-tjapdkd B1 Oral RxNorm: Oral No Start Date Active chlordiazepoxide-clidinium 5 mg-2.5 mg Cap RxNorm: 394407 1 Capsule(s) PO PRN For IBS No Start Date Active Singulair 10 mg Tab RxNorm: 675111 1 Tablet(s) PO daily No Start Date 06/26/2011 Inactive Omnicef 300 mg capsule RxNorm: 796875 1 Capsule(s) PO BID No Start Date 12/24/2013 Inactive albuterol sulfate HFA 90 mcg/Actuation Aerosol Inhaler RxNorm: 1052132 1-2 Puff(s) INH Q4 PRN No Start Date 08/23/2015 Inactive sample and rX provided aspirin 81 mg Tab, Delayed Release RxNorm: 945280 1 Tablet(s) PO BID No Start Date 12/28/2016 Inactive Tudorza Pressair 400 mcg/actuation Breath Activated RxNorm: 8714783 1 Puff(s) INH BID No Start Date 10/14/2014 Inactive niacin ER 500 mg Tab RxNorm: 8858584 1 Tablet(s) PO QHS No Start Date 02/27/2013 Inactive Celebrex 200 mg Cap RxNorm: 480461 1 Capsule(s) PO BID No Start Date 06/26/2011 Inactive loratadine 10 mg Tab RxNorm: 790650 1 Tablet(s) PO daily No Start Date 02/27/2013 Inactive Nasonex 50 mcg/Actuation [place] RxNorm: 273147 2 [place] NASAL BID No Start Date 06/26/2011 Inactive Zithromax Z-Marty 250 mg Tab RxNorm: 733916 Tablet(s) PO No Start Date 07/11/2011 Inactive 2 tabs today, then tabs 2-5 daily Zithromax Z-Marty 250 mg tablet RxNorm: 524409 Tablet(s) PO UD No Start Date 04/21/2013 Inactive Tessalon Perles 100 mg Cap RxNorm: 323695 1 Capsule(s) PO PRN No Start Date 07/11/2011 Inactive albuterol sulfate HFA 90 mcg/Actuation Aerosol Inhaler RxNorm: 8110782 Inhalation No Start Date 06/27/2011 Inactive Nasacort AQ 55 mcg Nasal [place] Aerosol RxNorm: 3016963 1 [place] NASAL PRN No Start Date 12/28/2016 Inactive gemfibrozil 600 mg Tab RxNorm: 284330 1 Tablet(s) PO BID No Start Date 06/26/2011 Inactive Pulmicort Flexhaler 180 mcg/Inhalation Breath Activated RxNorm: 8978862 1 INH daily No Start Date 06/26/2011 Inactive paroxetine 20 mg Tab RxNorm: 9159180 1/2 Tablet(s) PO daily No Start Date 06/26/2011 Inactive MIDRIN 325 mg-65 mg-100 mg Cap RxNorm: 939950 1 Capsule(s) PO Q4-6H No Start Date 09/14/2011 Inactive max 8 tabs/24 hours beta carotene Oral RxNorm: Oral No Start Date 12/28/2016 Inactive Medication Administered Medication Codes Instructions Start Date Status Kenalog 40 mg/mL suspension for injection RxNorm: 5612710 1Milliliter 02/02/2018 No longer Active Kenalog 40 mg/mL suspension for injection RxNorm: 5347273 Milliliter 08/21/2017 No longer Active Kenalog 40 mg/mL suspension for injection RxNorm: 3502077 Milliliter 06/30/2017 No longer Active Kenalog 40 mg/mL suspension for injection RxNorm: 0264631 Milliliter 05/09/2017 No longer Active Kenalog 40 mg/mL suspension for injection RxNorm: 5126165 1.5Milliliter 01/30/2017 No longer Active Kenalog 40 mg/mL suspension for injection RxNorm: 9451371 Milliliter 05/29/2015 No longer Active ceftriaxone 500 mg solution for injection RxNorm: 3311798 05/29/2015 No longer Active Kenalog 40 mg/mL suspension for injection RxNorm: 9609583 Milliliter 10/15/2014 No longer Active ceftriaxone 500 mg solution for injection RxNorm: 509201 10/15/2014 No longer Active Kenalog 40 mg/mL suspension for injection RxNorm: 7535441 Milliliter 02/17/2014 No longer Active Rocephin 500 mg solution for injection RxNorm: 843883 12/05/2013 No longer Active Influenza Virus Vaccine 0.5 mL RxNorm: 07/09/2013 No longer Active Rocephin 500 mg Solution for Injection RxNorm: 1817000 1Milliliter 10/23/2012 No longer Active Influenza Virus [...] Pelvic and perineal pain ICD-10: R10.2 ICD-9: QEC9940 06/12/2015 Encounter for screening for malignant neoplasm [...] NO Growth Day 2 06/19/2018 Parathyroid Hormone Fzj965 PTH 81.40 pg/ml 05/10/2018 Comp Metabolic Pgq899 NA 142 mEq/L 05/10/2018 Comp Metabolic Irq916 K 4.1 mEq/L 05/10/2018 Comp Metabolic Ciz018 CL 105 mEq/L 05/10/2018 Comp Metabolic Ywr722 CO2 27.0 mEq/L 05/10/2018 Comp Metabolic Ofy689 ANION GAP 14 05/10/2018 Comp Metabolic Saa478 GLUCOSE 95 mg/dL 05/10/2018 Comp Metabolic Oei996 Creat 0.9 mg/dL 05/10/2018 Comp Metabolic Adm930 eGFR 65 ml/min/1.73m2 05/10/2018 Comp Metabolic Nur167 BUN 15 mg/dL 05/10/2018 Comp Metabolic Nxi816 B/C Ratio 16.9 Ratio 05/10/2018 Comp Metabolic Pyg091 CALCIUM 9.8 mg/dL 05/10/2018 Comp Metabolic Rvd536 ALK PHOS 77 U/L 05/10/2018 Comp Metabolic Cfo160 AST(SGOT) 24 U/L 05/10/2018 Comp Metabolic Acl688 ALT(SGPT) 23 U/L 05/10/2018 Comp Metabolic Oyw691 BILI T 0.5 mg/dL 05/10/2018 Comp Metabolic Ncw880 ALBUMIN 4.8 g/dL 05/10/2018 Comp Metabolic Vkf568 TPRO 7.2 g/dL 05/10/2018 Comp Metabolic Axq828 GLOB 2.5 g/dL 05/10/2018 Comp Metabolic Pen950 A/G Ratio 1.9 Ratio 05/10/2018 Comp Metabolic Rue899 Osmo 284 mOsmo 05/10/2018 Vitamin D 25 Oh Cvu0002 VITAMIN D, 25 HYDROXY 51.58 ng/mL 05/10/2018 [...] 32.1 pg 05/10/2018 Cbc With Differential Ord2 [place]% 9.6 % 05/10/2018 Cbc With Differential Ord2 [...] 3.52 K/ul 05/10/2018 Cbc With Differential Ord2 [place] ABS# 0.8 K/ul 05/10/2018 Cbc With Differential [...] 31.6 pg 01/09/2018 Cbc With Differential Ord2 [place]% 9.8 % 01/09/2018 Cbc With Differential Ord2 [...] 3.05 K/ul 01/09/2018 Cbc With Differential Ord2 [place] ABS# 0.7 K/ul 01/09/2018 Cbc With Differential Ord2 Eos ABS# 0.5 K/ul 01/09/2018 Cbc With Differential Ord2 Baso ABS# 0.0 K/ul 01/09/2018 Tsh Ord6 TSH (3rd IS) 3.12 uIU/mL 01/09/2018 Comp Metabolic Vbi643 NA 140 mEq/L 01/09/2018 Comp Metabolic Bho179 K 4.0 mEq/L 01/09/2018 Comp Metabolic Xba024 CL 105 mEq/L 01/09/2018 Comp Metabolic Exj744 CO2 28.0 mEq/L 01/09/2018 Comp Metabolic Yav270 ANION GAP 11 01/09/2018 Comp Metabolic Hkc485 GLUCOSE 98 mg/dL 01/09/2018 Comp Metabolic Dpq654 Creat 0.7 mg/dL 01/09/2018 Comp Metabolic Kpz961 eGFR 87 ml/min/1.73m2 01/09/2018 Comp Metabolic Ili750 BUN 14 mg/dL 01/09/2018 Comp Metabolic Ske656 B/C Ratio 20.3 Ratio 01/09/2018 Comp Metabolic Krv069 CALCIUM 9.8 mg/dL 01/09/2018 Comp Metabolic Pbj256 ALK PHOS 113 U/L 01/09/2018 Comp Metabolic Bsc856 AST(SGOT) 22 U/L 01/09/2018 Comp Metabolic Dfx498 ALT(SGPT) 22 U/L 01/09/2018 Comp Metabolic Btk097 BILI T 0.5 mg/dL 01/09/2018 Comp Metabolic Mcw389 ALBUMIN 4.6 g/dL 01/09/2018 Comp Metabolic Ljp825 TPRO 7.0 g/dL 01/09/2018 Comp Metabolic Syu723 GLOB 2.4 g/dL 01/09/2018 Comp Metabolic Vrn841 A/G Ratio 2.0 Ratio 01/09/2018 Comp Metabolic Scy117 Osmo 280 mOsmo 01/09/2018 Lipid Ord30 CHOL 163 mg/dL 12/27/2016 Lipid Ord30 HDL 63.0 mg/dl 12/27/2016 Lipid Ord30 TRIG 62 mg/dL 12/27/2016 Lipid Ord30 LDL 88 mg/dL 12/27/2016 Lipid Ord30 C/HDL 2.6 Ratio 12/27/2016 Tsh Ord6 hTSH II 2.47 uIU/mL 12/27/2016 Comp Metabolic Fzj841 NA 140 mEq/L 12/27/2016 Comp Metabolic Lze748 K 4.0 mEq/L 12/27/2016 Comp Metabolic Keu529 CL 105 mEq/L 12/27/2016 Comp Metabolic Oib335 CO2 28.0 mEq/L 12/27/2016 Comp Metabolic Dqv721 ANION GAP 11 12/27/2016 Comp Metabolic Dgd752 GLUCOSE 102 mg/dL 12/27/2016 Comp Metabolic Ise245 Creat 0.7 mg/dL 12/27/2016 Comp Metabolic Xyx758 eGFR 81 ml/min/1.73m2 12/27/2016 Comp Metabolic Njf980 BUN 15 mg/dL 12/27/2016 Comp Metabolic Klt809 B/C Ratio 20.3 Ratio 12/27/2016 Comp Metabolic Pnw395 CALCIUM 10.0 mg/dL 12/27/2016 Comp Metabolic Cdn435 ALK PHOS 110 U/L 12/27/2016 Comp Metabolic Unq599 AST(SGOT) 20 U/L 12/27/2016 Comp Metabolic Tdp028 ALT(SGPT) 22 U/L 12/27/2016 Comp Metabolic Nzn150 BILI T 0.5 mg/dL 12/27/2016 Comp Metabolic Soq454 ALBUMIN 4.7 g/dL 12/27/2016 Comp Metabolic Vkq324 TPRO 7.2 g/dL 12/27/2016 Comp Metabolic Psl714 GLOB 2.5 g/dL 12/27/2016 Comp Metabolic Mjg440 A/G Ratio 1.9 Ratio 12/27/2016 Comp Metabolic Teq906 Osmo 280 mOsmo 12/27/2016 Cbc With Differential [...] 31.9 pg 12/27/2016 Cbc With Differential Ord2 [place]% 8.6 % 12/27/2016 Cbc With Differential Ord2 [...] 3.60 K/ul 12/27/2016 Cbc With Differential Ord2 [place] ABS# 0.6 K/ul 12/27/2016 Cbc With Differential [...] 31.7 pg 06/13/2016 Cbc With Differential Ord2 [place]% 8.4 % 06/13/2016 Cbc With Differential Ord2 [...] 3.26 K/ul 06/13/2016 Cbc With Differential Ord2 [place] ABS# 0.6 K/ul 06/13/2016 Cbc With Differential Ord2 Eos ABS# 1.0 K/ul 06/13/2016 Cbc With Differential Ord2 Baso ABS# 0.0 K/ul 06/13/2016 Comp Metabolic Agg114 NA 141 mEq/L 03/25/2016 Comp Metabolic Jdu837 K 4.0 mEq/L 03/25/2016 Comp Metabolic Xmq317 CL 103 mEq/L 03/25/2016 Comp Metabolic Muo575 CO2 28.0 mEq/L 03/25/2016 Comp Metabolic Qdg127 ANION GAP 14 03/25/2016 Comp Metabolic Cwh129 GLUCOSE 91 mg/dL 03/25/2016 Comp Metabolic Oel287 Creat 0.8 mg/dL 03/25/2016 Comp Metabolic Zni218 eGFR 70 ml/min/1.73m2 03/25/2016 Comp Metabolic Cem927 BUN 16 mg/dL 03/25/2016 Comp Metabolic Bso689 B/C Ratio 19.0 Ratio 03/25/2016 Comp Metabolic Qwd627 CALCIUM 9.8 mg/dL 03/25/2016 Comp Metabolic Nza678 ALK PHOS 111 U/L 03/25/2016 Comp Metabolic Quu479 AST(SGOT) 19 U/L 03/25/2016 Comp Metabolic Huk559 ALT(SGPT) 19 U/L 03/25/2016 Comp Metabolic Lio164 BILI T 0.6 mg/dL 03/25/2016 Comp Metabolic Yzf746 ALBUMIN 4.6 g/dL 03/25/2016 Comp Metabolic Qdg357 TPRO 7.4 g/dL 03/25/2016 Comp Metabolic Prw858 GLOB 2.8 g/dL 03/25/2016 Comp Metabolic Yzx088 A/G Ratio 1.7 Ratio 03/25/2016 Comp Metabolic Qgt267 Osmo 282 mOsmo 03/25/2016 Tsh Ord6 hTSH [...] 32.0 pg 03/25/2016 Cbc With Differential Ord2 [place]% 9.4 % 03/25/2016 Cbc With Differential Ord2 [...] 3.20 K/ul 03/25/2016 Cbc With Differential Ord2 [place] ABS# 0.8 K/ul 03/25/2016 Cbc With Differential Ord2 Eos ABS# 0.8 K/ul 03/25/2016 Cbc With Differential Ord2 Baso ABS# 0.0 K/ul 03/25/2016 GFR CALC 0784508 GFR AA >60 ML/MIN 03/14/2012 GFR CALC 4151465 GFR NON-AA >60 ML/MIN 03/14/2012 TSH 4742918 TSH 2.609 uIU/ML 03/14/2012 LIPID GRP HDL [...] BILI TOT 0.6 MG/DL 03/14/2012 CHEM 14 4770258 ALK PHOS 115 U/L 03/14/2012 CHEM 14 20280419 SODIUM 141 MMOL/L 03/14/2012 CHEM 14 20280419 CREATININE 0.78 MG/DL 03/14/2012 CHEM 14 20280419 CALCIUM 9.9 MG/DL 03/14/2012 CHEM 14 9352035 POTASSIUM 4.2 MMOL/L 03/14/2012 CHEM 14 20280419 PROT TOT 7.4 GM/DL 03/14/2012 CHEM 14 20280419 GLUCOSE 91 MG/DL 03/14/2012 CHEM 14 20280419 BICARB 27 MMOL/L 03/14/2012 CHEM 14 5529228 ANION GAP 8 MEQ/L 03/14/2012 CBC 8874032 WBC 5.9 10e9/L 03/14/2012 CBC 8460227 RBC 4.62 10e12/L 03/14/2012 CBC 4896761 HGB 14.5 g/dL 03/14/2012 CBC 0029812 HCT DET 42.4 % 03/14/2012 CBC 1347119 MCV 91.8 fL 03/14/2012 CBC 4147711 MCH 31.4 pg 03/14/2012 CBC 9270392 MCHC 34.2 g/dL 03/14/2012 CBC 3862218 PLT 370 10e9/L 03/14/2012 CBC 6899524 MPV 10.2 fL 03/14/2012 CBC 0772323 NANO % 36.6 % 03/14/2012 CBC 7576115 LY % 47.6 % 03/14/2012 CBC 4263632 MON % 10.0 % 03/14/2012 CBC 3080756 EOS % 5.6 % 03/14/2012 CBC 8699723 BASO % 0.2 % 03/14/2012 CBC 9866842 RDW 12.3 % 03/14/2012 CBC 4885495 ABS NANO 2.16 10e9/L 03/14/2012 CBC 6282683 ABS LYMPH 2.81 10e9/L 03/14/2012 CBC 2673041 ABS MONO 0.59 10e9/L 03/14/2012 CBC 2019484 ABS EOS 0.33 10e9/L 03/14/2012 CBC 1171391 ABS BASO 0.01 10e9/L 03/14/2012 CBC 8111044 RDW-SD 40.4 fL 03/14/2012 Review of Systems [...] erythema 05/29/2015 None Full Exam - General 1995 Constitutional general appearance Overall: well developed 03/26/2015 [...] tender 12/05/2013 None Full Exam - General 1995 Constitutional general appearance Overall: well developed 09/25/2013 [...] accomodation 2013 None Full Exam - General 1995 [...] nourished 03/22/2013 None Full Exam - General 1995 Eyes pupils and irises Overall: pupils equal, round, reactive to light and accomodation 03/22/2013 None Full Exam - General 1995 Ears/Nose/Throat oral cavity/pharynx/larynx Overall: oral mucosa clear 03/22/2013 None Full Exam - General 1995 Ears/Nose/Throat oral cavity/pharynx/larynx Overall: oropharyngeal mucosa clear 03/22/2013 None Full Exam - General 1995 Ears/Nose/Throat oral cavity/pharynx/larynx Overall: no masses 03/22/2013 None Full Exam - General 1995 Respiratory auscultation Overall: breath sounds clear bilaterally 03/22/2013 None Full Exam - General 1995 Respiratory respiratory effort/rhythm Overall: no retractions 03/22/2013 None Full Exam - General 1995 Respiratory respiratory effort/rhythm Overall: normal rate 03/22/2013 None Full Exam - General 1995 Cardiovascular auscultation of heart Overall: regular rate [...] clear 03/08/2012 None Full Exam - General 1995 Ears/Nose/Throat oral cavity/pharynx/larynx Overall: oropharyngeal mucosa clear 03/08/2012 None Full Exam - General 1995 Ears/Nose/Throat oral cavity/pharynx/larynx Overall: no masses 03/08/2012 [...] Formatting Model/CDA Sections, Assigned to/Juana Ji CPT-4: 53915Rutabdd 06/28/2018 DRAIN/INJECT JOINT/BURSA CPT-4: 33392 01/29/2018 TRIAMCINOLONE ACET INJ NOS CPT-4: J3301 01/29/2018 PPPS, SUBSEQ VISIT CPT- 4: G0439 01/08/2018 THER/PROPH/DIAG INJ SC/IM CPT-4: 68513 08/21/2017 TRIAMCINOLONE ACET INJ NOS CPT-4: J3301 08/21/2017 ADMIN INFLUENZA VIRUS VAC CPT-4: G0008 07/18/2017 FLU VACC PRSV FREE INC ANTIG CPT-4: 80686 07/18/2017 TRIAMCINOLONE ACET INJ NOS CPT-4: J3301 06/30/2017 TRIAMCINOLONE ACET INJ NOS CPT-4: J3301 05/09/2017 THER/PROPH/DIAG INJ SC/IM CPT-4: 74508 05/09/2017 TRIAMCINOLONE ACET INJ NOS CPT-4: J3301 01/30/2017 PPPS, SUBSEQ VISIT CPT- 4: G0439 01/02/2017 ADMIN INFLUENZA VIRUS VAC CPT-4: G0008 07/13/2016 FLU VACC PRSV FREE INC ANTIG CPT-4: 61847 07/13/2016 ADMIN INFLUENZA VIRUS VAC CPT-4: G0008 07/10/2015 FLU VACC 4 KARI 3 YRS PLUS IM Formatting Model/CDA Sections, Assigned to/Juana Ji SNOMED CT: [id number] CPT-4: 22059Annyvpb 07/10/2015 TRIAMCINOLONE ACET INJ NOS CPT-4: J3301 05/29/2015 ROCEPHIN, PER 250 MG CPT- 4: J0696 05/29/2015 THER/PROPH/DIAG INJ SC/IM CPT-4: 77016 10/15/2014 TRIAMCINOLONE ACET INJ NOS CPT-4: J3301 10/15/2014 ROCEPHIN, PER 250 MG CPT- 4: J0696 10/15/2014 THER/PROPH/DIAG INJ SC/IM CPT-4: 55484 02/17/2014 TRIAMCINOLONE ACET INJ NOS CPT-4: J3301 02/17/2014 ROCEPHIN, PER 250 MG CPT- 4: J0696 12/05/2013 ADMIN INFLUENZA VIRUS VAC CPT-4: G0008 07/09/2013 FLULAVAL VACC, 3 YRS & >, IM CPT-4: Q2036 07/09/2013 ROCEPHIN, PER 250 MG CPT- 4: J0696 10/23/2012 PRESCRIP TRANSMIT VIA ERX SY CPT-4: G8553 10/23/2012 ROUTINE VENIPUNCTURE CPT- 4: 54921 03/14/2012 ADMIN INFLUENZA VIRUS VAC CPT-4: G0008 07/05/2011 FLULAVAL VACC, 3 YRS & >, IM CPT-4: Q2036 07/05/2011 ROUTINE VENIPUNCTURE CPT- 4: 02539 06/28/2011 PRESCRIP TRANSMIT VIA ERX SY CPT-4: G8553 06/27/2011 Vital Signs Date Vital 01/24/2019 Blood Pressure 1: 138/74 Code: 8480-6 BMI: 32.9 Code: 26374-5 Heart Rate 1: 74 bpm Height: 5'2" SpO2: 97% Weight: 180 lbs 12/03/2018 Blood Pressure 1: 134/72 Code: 8480-6 BMI: 31.1 Code: 34783-9 Heart Rate 1: 89 bpm Height: 5'2" SpO2: 99% Weight: 170 lbs 11/19/2018 Blood Pressure 1: 134/56 Code: 8480-6 BMI: 31.1 Code: 64812-8 Heart Rate 1: 88 bpm Height: 5'2" SpO2: 98% Weight: 170 lbs 11/07/2018 Blood Pressure 1: 140/70 Code: 8480-6 BMI: 31.1 Code: 97710-8 Heart Rate 1: 91 bpm Height: 5'2" SpO2: 99% Weight: 170 lbs 09/04/2018 Blood Pressure 1: 140/80 Code: 8480-6 BMI: 31.3 Code: 70215-2 Heart Rate 1: 82 bpm Height: 5'2" SpO2: 95% Weight: 171 lbs 07/10/2018 Blood Pressure 1: 144/46 Code: 8480-6 BMI: 31.5 Code: 97012-0 Heart Rate 1: 86 bpm Height: 5'2" SpO2: 97% Weight: 172 lbs 06/19/2018 Blood Pressure 1: 150/80 Code: 8480-6 BMI: 31.5 Code: 12267-8 Heart Rate 1: 94 bpm Height: 5'2" SpO2: 96% Weight: 172 lbs 6 oz 01/29/2018 Blood Pressure 1: 148/66 Code: 8480-6 BMI: 31.8 Code: 78975-8 Heart Rate 1: 80 bpm Height: 5'2" SpO2: 96% Weight: 174 lbs 01/08/2018 Blood Pressure 1: 122/72 Code: 8480-6 BMI: 32.0 Code: 99724-6 Heart Rate 1: 79 bpm Height: 5'2" SpO2: 99% Weight: 175 lbs 08/21/2017 Blood Pressure 1: 162/78 Code: 8480-6 BMI: 32.2 Code: 71293-1 Heart Rate 1: 82 bpm Height: 5'2" SpO2: 97% Temperature: 36.6 (C) / 97.8 (F) Weight: 176 lbs 07/18/2017 Blood Pressure 1: 136/70 Code: 8480-6 BMI: 31.9 Code: 93729-7 Heart Rate 1: 81 bpm Height: 5'2" SpO2: 96% Weight: 174 lbs 8 oz 06/30/2017 Blood Pressure 1: 128/74 Code: 8480-6 BMI: 31.8 Code: 84151-2 Heart Rate 1: 89 bpm Height: 5'2" SpO2: 97% Weight: 174 lbs 05/08/2017 Blood Pressure 1: 148/82 Code: 8480-6 BMI: 30.9 Code: 12486-9 Heart Rate 1: 79 bpm Height: 5'2" SpO2: 95% Weight: 169 lbs 02/14/2017 Blood Pressure 1: 126/72 Code: 8480-6 Heart Rate 1: 76 bpm Height: 5'2" SpO2: 97% Weight: 01/31/2017 Blood Pressure 1: 154/80 Code: 8480-6 BMI: 32.0 Code: 26513-2 Heart Rate 1: 81 bpm Height: 5'2" SpO2: 97% Weight: 175 lbs 01/30/2017 Blood Pressure 1: 136/78 Code: 8480-6 Heart Rate 1: 92 bpm Height: 5'2" SpO2: 96% Temperature: 37.4 (C) / 99.3 (F) Weight: 01/02/2017 Blood Pressure 1: 146/66 Code: 8480-6 BMI: 31.8 Code: 17356-8 Heart Rate 1: 81 bpm Height: 5'2" SpO2: 98% Weight: 174 lbs 12/29/2016 Blood Pressure 1: 140/78 Code: 8480-6 BMI: 31.8 Code: 80643-9 Heart Rate 1: 88 bpm Height: 5'2" SpO2: 97% Weight: 174 lbs 03/24/2016 Blood Pressure 1: 132/88 Code: 8480-6 BMI: 31.6 Code: 41950-0 Heart Rate 1: 91 bpm Height: 5'2" SpO2: 99% Weight: 173 lbs 09/25/2015 Blood Pressure 1: 112/60 Code: 8480-6 BMI: 31.3 Code: 76607-8 Heart Rate 1: 85 bpm Height: 5'2" SpO2: 97% Weight: 171 lbs 08/24/2015 Blood Pressure 1: 142/60 Code: 8480-6 BMI: 30.9 Code: 99127-9 Heart Rate 1: 94 bpm Height: 5'2" SpO2: 97% Weight: 169 lbs 06/12/2015 Blood Pressure 1: 122/64 Code: 8480-6 BMI: 31.1 Code: 08262-9 Heart Rate 1: 91 bpm Height: 5'2" SpO2: 97% Weight: 170 lbs 05/29/2015 Blood Pressure 1: 150/78 Code: 8480-6 BMI: 31.6 Code: 63169-6 Heart Rate 1: 79 bpm Height: 5'2" SpO2: 93% Weight: 173 lbs 03/26/2015 Blood Pressure 1: 124/82 Code: 8480-6 BMI: 31.8 Code: 23339-8 Heart Rate 1: 80 bpm Height: 5'2" Respiratory Rate: 20 bpm Weight: 174 lbs 03/17/2015 Blood Pressure 1: 128/78 Code: 8480-6 BMI: 31.8 Code: 41594-6 Heart Rate 1: 84 bpm Height: 5'2" Respiratory Rate: 20 bpm Weight: 174 lbs 10/15/2014 Blood Pressure 1: 130/64 Code: 8480-6 BMI: 32.6 Code: 49672-6 Heart Rate 1: 80 bpm Height: 5'2" Weight: 178 lbs 04/10/2014 Blood Pressure 1: 128/70 Code: 8480-6 BMI: 31.6 Code: 22765-2 Heart Rate 1: 80 bpm Height: 5'2" Weight: 173 lbs 02/17/2014 Blood Pressure 1: 108/58 Code: 8480-6 BMI: 32.0 Code: 84229-6 Heart Rate 1: 80 bpm Height: 5'2" Temperature: 37.4 (C) / 99.3 (F) Weight: 175 lbs 12/05/2013 Blood Pressure 1: 144/80 Code: 8480-6 Heart Rate 1: 72 bpm SpO2: 98% Temperature: 36.9 (C) / 98.4 (F) Weight: 177 lbs 09/25/2013 Blood Pressure 1: 136/82 Code: 8480-6 BMI: 32.7 Code: 31268-4 Heart Rate 1: 84 bpm Height: 5'2" Weight: 179 lbs 07/09/2013 Blood Pressure 1: 144/70 Code: 8480-6 BMI: 32.0 Code: 40858-2 Heart Rate 1: 76 bpm Height: 5'2" Weight: 175 lbs 2013 Blood Pressure 1: 128/72 Code: 8480-6 BMI: 31.8 Code: 56328-5 Heart Rate 1: 68 bpm Height: 5'2" Weight: 174 lbs 03/22/2013 Blood Pressure 1: 128/68 Code: 8480-6 BMI: 31.8 Code: 27737-4 Heart Rate 1: 68 bpm Height: 5'2" Weight: 174 lbs 02/28/2013 Blood Pressure 1: 128/72 Code: 8480-6 BMI: 31.5 Code: 00315-2 Heart Rate 1: 80 bpm Height: 5'2" Weight: 172 lbs 10/23/2012 Blood Pressure 1: 124/78 Code: 8480-6 Heart Rate 1: 68 bpm Temperature: 36.8 (C) / 98.2 (F) Weight: 172 lbs 03/08/2012 Blood Pressure 1: 124/68 Code: 8480-6 Heart Rate 1: 80 bpm Weight: 171 lbs 09/28/2011 Blood Pressure 1: 112/58 Code: 8480-6 BMI: 31.6 Code: 25411-2 Heart Rate 1: 76 bpm Height: 5'2" Respiratory Rate: 16 bpm Weight: 173 lbs 06/27/2011 Blood Pressure 1: 117/61 Code: 8480-6 BMI: 30.4 Code: 10364-9 Heart Rate 1: 86 bpm Height: 5'3" [...] 3 days per week 01/08/2018 works at [employer] Annual Medicare Wellness Exam Handling Stress often [...] 03/08/2012 Works 3 days per week at [employer], is retired osteoarthritis Frequency of Episodes unchanged [...] data Encounters Encounter Performer Location Codes Date ([id number]) [id number] EST. PATIENT, LEVEL IV Diagnosis: Essential (primary) hypertension[ICD10: I10] Diagnosis: Mild intermittent asthma, uncomplicated[ICD10: J45.20] Deneen Rosenberg MD, [facility] CPT-4: 27954 01/24/2019 16979 EST. PATIENT, LEVEL III Diagnosis: Encounter for follow-up examination after completed treatment for conditions other than malignant neoplasm[ICD10: Z09] Diagnosis: Low back pain[ICD10: M54.5] Chastity Rosenberg MD, [facility] CPT-4: 34759 12/03/2018 ([id number]) 92814 EST. PATIENT, LEVEL III Diagnosis: Postherpetic trigeminal neuralgia[ICD10: B02.22] Deneen Rosenberg MD, [facility] CPT-4: 80095 11/19/2018 ([id number]) 36068 EST. PATIENT, LEVEL III Diagnosis: Chronic obstructive pulmonary disease with (acute) exacerbation[ICD10: J44.1] Diagnosis: Postherpetic trigeminal neuralgia[ICD10: B02.22] Deneen Rosenberg MD, [facility] CPT-4: 74030 11/07/2018 ([id number]) 53599 EST. PATIENT, LEVEL IV Diagnosis: Essential (primary) hypertension[ICD10: I10] Diagnosis: Chronic frontal sinusitis[ICD10: J32.1] Deneen Rosenberg MD, [facility] CPT-4: 84443 09/04/2018 ([id number] 69164 EST. PATIENT, LEVEL III Diagnosis: Other retention of urine[ICD10: R33.8] Diagnosis: Mild intermittent asthma with (acute) exacerbation[ICD10: J45.21] Deneen Rosenberg MD, [facility] CPT-4: 15151 07/10/2018 ([id number]) 63077 EST. PATIENT, LEVEL IV Diagnosis: Primary hyperparathyroidism[ICD10: E21.0] Diagnosis: Personal history of other diseases of the musculoskeletal system and connective tissue[ICD10: Z87.39] Deneen Rosenberg MD, [facility] CPT-4: 26432 06/19/2018 [id number] EST. PATIENT, LEVEL III Diagnosis: Low back pain[ICD10: M54.5] Diagnosis: Sciatica, right side[ICD10: M54.31] Chastity Rosenberg MD, [facility] CPT- 4: 78440 01/29/2018 37351 EST. PATIENT, LEVEL III Diagnosis: Mild intermittent asthma with (acute) exacerbation[ICD10: J45.21] Diagnosis: Cough[ICD10: R05] Diagnosis: Other allergic rhinitis[ICD10: J30.89] Chastity Rosenberg MD, [facility] CPT- 4: 80938 08/21/2017 ([id number]) 64615 EST. PATIENT, LEVEL IV Diagnosis: Mild intermittent asthma with (acute) exacerbation[ICD10: J45.21] Diagnosis: Essential (primary) hypertension[ICD10: I10] Diagnosis: Encounter for immunization[ICD10: Z23] Diagnosis: Sciatica, right side[ICD10: M54.31] Diagnosis: Low back pain[ICD10: M54.5] Deneen Rosenberg MD, [facility] CPT-4: 85989 07/18/2017 ([id number]) 04423 EST. PATIENT, LEVEL III Diagnosis: Cough[ICD10: R05] Diagnosis: Other allergic rhinitis[ICD10: J30.89] Lalitha Rosenberg MD, [facility] CPT-4: 84386 06/30/2017 26004 EST. PATIENT, LEVEL III Diagnosis: Low back pain[ICD10: M54.5] Diagnosis: Dizziness and giddiness[ICD10: R42] Chastity Rosenberg MD, [facility] CPT- 4: 09896 05/08/2017 ([id number]) 66304 EST. PATIENT, LEVEL III Diagnosis: Essential (primary) hypertension[ICD10: I10] Diagnosis: Low back pain[ICD10: M54.5] Diagnosis: Sciatica, right side[ICD10: M54.31] Deneen Rosenberg MD, [facility] CPT- 4: 86254 02/14/2017 ([id number]) 09899 EST. PATIENT, LEVEL III Diagnosis: Essential (primary) hypertension[ICD10: I10] Deneen Rosenberg MD, [facility] CPT-4: 66568 01/31/2017 ([id number]) 69657 EST. PATIENT, LEVEL III Diagnosis: Cough[ICD10: R05] Diagnosis: Acute recurrent maxillary sinusitis[ICD10: J01.01] Lalitha Rosenberg MD, [facility] CPT-4: 33981 01/30/2017 ([id number]) 73225 EST. PATIENT, LEVEL III Diagnosis: Essential (primary) hypertension[ICD10: I10] Diagnosis: Mild intermittent asthma with (acute) exacerbation[ICD10: J45.21] Diagnosis: Tinea corporis[ICD10: B35.4] Deneen Rosenberg MD, [facility] CPT-4: 77604 12/29/2016 ([id number]) Miscellaneous no charge Diagnosis: Epistaxis[ICD10: R04.0] Chastity Rosenberg MD, [facility] CPT-4: 18773 04/01/2016 ([id number]) 79765 EST. PATIENT, LEVEL IV Diagnosis: Essential (primary) hypertension[ICD10: I10] Diagnosis: Mild intermittent asthma, uncomplicated[ICD10: J45.20] Diagnosis: Insomnia, unspecified[ICD10: G47.00] Lalitha Rosenberg MD, [facility] CPT-4: 68664 03/24/2016 48937 EST. PATIENT, LEVEL III Diagnosis: Mild intermittent asthma with (acute) exacerbation[ICD10: J45.21] Diagnosis: Epistaxis[ICD10: R04.0] Chastity Rosenberg MD, [facility] CPT-4: 83266 09/25/2015 ([id number]) 81973 EST. PATIENT, LEVEL III Diagnosis: Acute recurrent maxillary sinusitis[ICD10: J01.01] Diagnosis: Allergic rhinitis due to pollen[ICD10: J30.1] Lalitha Rosenberg MD, [facility] CPT-4: 07878 08/24/2015 ([id number]) 19645 EST. PATIENT, LEVEL IV Diagnosis: Well woman exam[ICD9: V70.0] Diagnosis: Encounter for screening for malignant neoplasm of vagina[ICD10: Z12.72] Diagnosis: Pelvic and perineal pain[ICD10: R10.2] Lalitha Rosenberg MD, [facility] CPT-4: 04513 06/12/2015 ([id number]) 15739 EST. PATIENT, LEVEL III Diagnosis: Tinea corporis[ICD9: 110.5] Diagnosis: ACUTE MAXILLARY SINUSITIS[ICD9: 461.0] Lalitha Rosenberg MD, [facility] CPT-4: 91113 05/29/2015 ([id number]) 93003 EST. PATIENT, LEVEL IV Diagnosis: Skin tag[ICD9: 701.9] Diagnosis: Seborrheic keratoses[ICD9: 702.19] Diagnosis: Comedone[ICD9: 706.1] Diagnosis: IMPACTED CERUMEN[ICD9: 380.4] Rosemarie Rosenberg MD, [facility] CPT-4: 04244 03/26/2015 ([id number]) 08630 EST. PATIENT, LEVEL IV Diagnosis: ESSENTIAL HYPERTENSION[ICD9: 401.9] Diagnosis: HYPERLIPIDEMIA[ICD9: 272.4] Diagnosis: Fatigue[ICD9: 780.79] Diagnosis: INSECT BITE HIP/LEG[ICD9: 916.4] Rosemarie Rosenberg MD, [facility] CPT-4: 15338 03/17/2015 ([id number]) 03092 EST. PATIENT, LEVEL IV Diagnosis: Acute bronchitis[ICD9: 466.0] Diagnosis: MALAISE AND FATIGUE[ICD9: 780.79] Diagnosis: COUGH[ICD9: 786.2] Diagnosis: CHRONIC OBSTRUCTIVE ASTHMA WITH EXACERBATION[ICD9: 493.22] [facility] CPT-4: 36450 10/15/2014 ([id number]) 97836 EST. PATIENT, LEVEL III Diagnosis: Acute anterior epistaxis[ICD9: 784.7] Diagnosis: ESSENTIAL HYPERTENSION[ICD9: 401.9] Lalitha Rosenberg MD, [facility] CPT-4: 16272 04/10/2014 ([id number]) 79226 EST. PATIENT, LEVEL III Diagnosis: Acute bronchitis[ICD9: 466.0] Diagnosis: COUGH[ICD9: 786.2] Diagnosis: Nasal congestion[ICD9: 478.19] Deneen Rosenberg MD, [facility] CPT-4: 32982 02/17/2014 ([id number]) 14413 EST. PATIENT, LEVEL III Diagnosis: ACUTE SINUSITIS[ICD9: 461.9] Lalitha Rosenberg MD, [facility] CPT-4: 67500 12/05/2013 ([id number]) 36453 EST. PATIENT, LEVEL IV Diagnosis: HYPERLIPIDEMIA[ICD9: 272.4] Diagnosis: CHRONIC OBSTRUCTIVE ASTHMA[ICD9: 493.20] Diagnosis: SLEEP APNEA NOS[ICD9: 780.57] Diagnosis: GENERAL OSTEOARTHROSIS-MULT[ICD9: 715.09] Deneen Rosenberg MD, [facility] CPT-4: 09101 09/25/2013 ([id number]) 11402 EST. PATIENT, LEVEL III Diagnosis: CHRONIC OBSTRUCTIVE ASTHMA[ICD9: 493.20] Deneen Rosenberg MD, [facility] CPT-4: 00390 07/09/2013 ([id number]) Miscellaneous no charge Diagnosis: CHRONIC OBSTRUCTIVE ASTHMA[ICD9: 493.20] Deneen Rosenberg MD, [facility] CPT-4: 34411 06/11/2013 ([id number]) 95775 EST. PATIENT, LEVEL IV Diagnosis: CHRONIC OBSTRUCTIVE ASTHMA[ICD9: 493.20] Diagnosis: Sleep apnea[ICD9: 780.57] Deneen Rosenberg MD, [facility] CPT-4: 30978 2013 ([id number]) 46783 EST. PATIENT, LEVEL IV Diagnosis: CHRONIC OBSTRUCTIVE ASTHMA[ICD9: 493.20] Diagnosis: OSTEOARTH NOS-UNSPEC[ICD9: 715.90] Diagnosis: MALAISE AND FATIGUE[ICD9: 780.79] Deneen Rosenberg MD, [facility] CPT- 4: 49796 03/22/2013 ([id number]) 46106 EST. PATIENT, LEVEL IV Diagnosis: HYPERLIPIDEMIA[ICD9: 272.4] Diagnosis: OSTEOARTH NOS-UNSPEC[ICD9: 715.90] Diagnosis: MALAISE AND FATIGUE[ICD9: 780.79] Deneen Rosenberg MD, [facility] CPT- 4: 94166 02/28/2013 ([id number]) 53071 EST. PATIENT, LEVEL III Diagnosis: ACUTE SINUSITIS[ICD9: 461.9] Diagnosis: COUGH[ICD9: 786.2] Lalitha Rosenberg MD, [facility] CPT-4: 50159 10/23/2012 ([id number]) 77502 EST. PATIENT, LEVEL IV Diagnosis: ESSENTIAL HYPERTENSION[SNOMED: 16798824] Diagnosis: HYPERLIPIDEMIA[ICD9: 272.4] Diagnosis: CHRONIC OBSTRUCTIVE ASTHMA[ICD9: 493.20] Deneen Rosenberg MD, [facility] CPT-4: 54558 03/08/2012 ([id number]) 42948 EST. PATIENT, LEVEL IV Diagnosis: CHRONIC OBSTRUCTIVE ASTHMA[ICD9: 493.20] Diagnosis: Primary generalized (osteo)arthritis[ICD9: 715.09] Diagnosis: PAIN IN LIMB[ICD9: 729.5] Deneen Rosenberg MD, [facility] CPT-4: 91151 09/28/2011 95044 EST. PATIENT, LEVEL IV Diagnosis: ACUTE SINUSITIS[ICD9: 461.9] Diagnosis: Asthma[ICD9: 493.90] Diagnosis: Osteoarthritis[ICD9: 715.90] Diagnosis: Hyperlipidemia[ICD9: 272.4] Lalitha Rosenberg MD, [facility] CPT-4: 53264 06/27/2011 Plan of Care Planned Activity Notes [...] and proair. 01/24/2019 Appointment: Deneen Rosenberg WPtel: [address] [place], [place] [phone] (15 min) Moderate 01/24/2019 Patient Education: Patient [...] or concerns. 12/03/2018 Appointment: Chastity Chavira WPtel: [phone] (30 min) Complex 12/03/2018 Patient Education: Patient Medication Summary Completed 12/03/2018 Patient Education: Back Pain Completed 12/03/2018 Visit Plan: Post-herpetic neuralgia - pt to stop acyclovir - finish dose of steroid - monitor symptoms, call if symptoms return. 11/19/2018 Appointment: Deneen Rosenberg WPtel: [facility]9 [facility] (15 min) Moderate 11/19/2018 Patient Education: Patient Medication Summary Completed 11/19/2018 Visit Plan: Trigeminal Neuralgia - due to shingles - rx for prednisone taper and valcyvlovir 1 gram bid. COPD - rx for albuterol and proair. 11/07/2018 Appointment: Deneen Rosenberg WPtel: [facility] (15 min) Moderate 11/07/2018 Patient Education: Patient [...] 10 days. 09/04/2018 Appointment: Deneen Rosenberg WPtel: [phone] [facility] (15 min) Moderate 09/04/2018 Patient Education: Patient Medication Summary Completed 09/04/2018 Patient Education: Hypertension Completed 09/04/2018 Visit Plan: Asthma - chronic problem for this patient. We have reviewed chronic treatment strategy, symptom control, and plans for acute exacerbations. No changes today to the current treatment plan as the patient is stable, monitor for acute changes 07/10/2018 Appointment: Deneen Rosenberg WPtel: [phone] [facility] (15 min) Moderate 07/10/2018 Patient Education: Patient Medication Summary Completed 07/10/2018 Appointment: Injection 06/28/2018 Patient Education: Patient Medication Summary Completed 06/28/2018 Visit Plan: Elevated PTH - parathyroid nuclear medicine uptake at [facility] [place] - 06/26, 12 , 13 are open Osteopenia - discussed the pt's dx and the fact that insurance will not pay for prolia due to lack of dx of Osteoporosis. 06/19/2018 Appointment: Deneen Rosenberg WPtel: [phone] [facility] (15 min) Moderate 06/19/2018 Patient Education: Patient [...] of injection. 01/29/2018 Appointment: Chastity Chavira WPtel: [facility] [place] [place] (30 min) Complex 01/29/2018 Patient Education: [...] care surrogate. 01/08/2018 Appointment: Lalitha Alcala WPtel: [facility] [phone] [facility] - Annual Wellness Visit 01/08/2018 [...] changes 07/18/2017 Appointment: Deneen Rosenberg WPtel: [phone] [facility] (15 min) Moderate 07/18/2017 Patient Education: [...] persist 06/30/2017 Appointment: Lalitha Alcala WPtel: [phone] [phone] (15 min) Moderate 06/30/2017 Patient Education: Patient [...] concerns. 05/08/2017 Appointment: Chastity Chavira [facility]el: [phone] [place] (30 min) Complex 05/08/2017 Patient Education: Patient [...] they worsen. 02/14/2017 Appointment: Deneen Rosenberg WPtel: [facility] (15 min) Moderate 02/14/2017 Patient Education: Patient Medication Summary Completed 02/14/2017 Care Plan: Referral Order SNOMED-CT : [id number] Pending 02/14/2017 Appointment: Deneen Rosenberg WPtel: [facility]9 [facility] [facility] (15 min) Moderate 02/01/2017 Visit Plan: Hypertension - well controlled - continue with current medications, continue with no added salt diet. Pt has been encouraged to exercise daily. The pt has been advised to call the office if there are any acute concerns about change in blood pressure readings at home. Cough - improved from yesterday. 01/31/2017 Appointment: Deneen Rosenberg WPtel: [address] [place], [place] [phone] (15 min) Moderate 01/31/2017 Patient Education: Patient Medication Summary Completed 01/31/2017 Patient Education: Obesity Completed 01/31/2017 Patient Education: Hypertension Completed 01/31/2017 Visit Plan: Sinusitis - Pt has acute infection - pain in face, maxillary region, Pt informed to use decongestant, RX given to patient, sinus rinses also recommended. Call if symptoms do not show improvement. 01/30/2017 Appointment: Lalitha Alcala WPtel: [phone] [place] (15 min) Moderate 01/30/2017 Patient Education: [...] Ketoconazole shampoo. 12/29/2016 Appointment: [phone] [facility] (15 min) Moderate 12/29/2016 Patient Education: Patient Medication Summary Completed 12/29/2016 Patient Education: Obesity Completed 12/29/2016 Patient Education: Hypertension Completed 12/29/2016 Patient Education: Patient Medication Summary Completed 12/26/2016 Appointment: Injection 07/13/2016 Patient Education: Patient Medication Summary Completed 07/13/2016 Visit Plan: Pt went to ED from office, stating she does not think she will be able to get to her ENT in [place]. 04/01/2016 Appointment: Lal[facility]cal[phone] (30 min) Complex 04/01/2016 Patient Education: Patient [...] use as needed when traveling 03/24/2016 Appointment: Fredrick Lalitha WPtel: [phone] (30 min) [facility] 03/24/2016 Patient Education: Patient Medication Summary [...] Care Plan: COMPLETE CBC AUTOMATED LOINC : 14876-7 Ordered 03/17/2015 Visit Plan: Asthma EXACERBATION - [...] acutely worsen. 10/15/2014 Appointment: Deneen Rosenberg WPtel: [facility] [facility] 10/15/2014 Patient Education: Patient Medication Summary [...] show improvement. 12/05/2013 Appointment: Lalitha Alcala WPtel: [phone] [id number] 12/05/2013 Patient Education: Patient Medication Summary Completed 12/05/2013 Appointment: Deneen Rosenberg WPtel: [facility]6 [facility] Follow up 10/01/2013 Visit Plan: Hyperlipidemia [...] consider cpap. 09/25/2013 Appointment: Deneen Rosenberg WPtel: [phone] [facility] Follow up 09/25/2013 Patient Education: Patient Medication Summary Completed 09/25/2013 Visit Plan: Asthma - chronic problem for this patient. We have reviewed chronic treatment strategy, symptom control, and plans for acute exacerbations. No changes today to the current treatment plan as the patient is stable, monitor for acute changes 07/09/2013 Appointment: [place] WPtel: [address] [place], [place] [phone] Follow up 07/09/2013 Patient Education: Patient Medication Summary Completed 07/09/2013 Appointment: Lyndsay Rosenbergy WPtel: [address] [place], [place] [phone] Follow up 07/01/2013 Appointment: Lalitha Alcala WPtel: [phone] Lab Draw 06/11/2013 Patient Education: Patient Medication [...] noctural hypoxemia. 2013 Appointment: Deneen Rosenberg WPtel: [address] [place], [place] [phone] Other 2013 Patient Education: Patient Medication Summary [...] TUNNEL ENTRAPMENT. 03/22/2013 Appointment: Deneen Rosenberg WPtel: [facility] [place] Other 03/22/2013 Patient Education: Patient [...] check labs. 02/28/2013 Appointment: Deneen Rosenberg WPtel: [facility]5 [facility] [place] Follow up 02/28/2013 Patient Education: Patient Medication Summary Completed 02/28/2013 Visit Plan: Sinusitis - Pt has acute infection - pain in face, maxillary region, Pt informed to use decongestant, RX given to patient, sinus rinses also recommended. Call if symptoms do not show improvement. Rocephin injection today in the office 10/23/2012 Appointment: Lalitha Alcala [facility]Ptel: [phone] Sick 10/23/2012 Patient Education: Patient Medication Summary Completed 10/23/2012 Appointment: Deneen Rosenberg WPtel: [facility] [place] Lab Draw 03/14/2012 Patient Education: [...] medications. 03/08/2012 Appointment: Deneen Rosenberg WPtel: [phone] [facility] Other 03/08/2012 Patient Education: Patient Medication Summary Completed 03/08/2012 Patient Education: High Blood Pressure: Essential Hypertension Completed 03/08/2012 Visit Plan: Asthma- controlled by the current medication.. No change in the treatment at this time. Osteoarthritis- pt has been instructed to use celebrex twice daily on the days that she is working. 09/28/2011 Appointment: Deneen Rosenberg WPtel: [facility]5 [facility] Follow up 09/28/2011 Patient Education: Patient Medication Summary Completed 09/28/2011 Appointment: Deneen Rosenberg WPtel: [facility]5 [facility] [place] Injection 07/05/2011 Patient Education: Patient Medication Summary Completed 07/05/2011 Appointment: Deneen Rosenberg WPtel: [facility]5 [facility] Lab Draw 06/28/2011 Patient Education: Patient [...] as indicated. 06/27/2011 Appointment: Lalitha Alcala WPtel: [phone] [place] Other 06/27/2011 Patient Education: Patient Medication Summary Completed 06/27/2011 Care Plan: CBC (COMPLETE CBC W/AUTO DIFF WBC) LOINC : 95231-9 Ordered 06/27/2011 Care Plan: CHEM 14 (COMPREHEN METABOLIC PANEL) LOINC : 34337-7 Ordered 06/27/2011 Care Plan: LIPID GRP (LIPID PANEL) LOINC : 88363-4 Ordered 06/27/2011 Care Plan: TSH (ASSAY THYROID [...] with any changes, questions or concerns. . Well Adult Female - exam completed. Pt will be called with results of her testing. She was advised to continue with yearly annual exams. Call if any abnormal gynecologic issues during the next year, otherwise, RTC yearly or prn. Vaginal dryness-samples of estrace cream PT AGREED TO SLEEP STUDY AND PFT'S, [...] improved, or if symptoms acutely worsen. . epistaxis - Pt states that she [...] COPD/Asthma - rx for albuterol and proair. Start Align or Culturelle Probiotic Daily, Sample [...] PTH - parathyroid nuclear medicine uptake at [facility] [place] - 06/26, , 13 are open Osteopenia [...] able to get to her ENT in [place]. . Sinusitis - Pt has acute infection [...]
--- OUTSIDE RECORDS SUMMARY | 2019-04-16 05:37 | XMS REPORT | CCD ---
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) and also during college she was exposed to smoke during her work in college 2013 Marital status Unknown Since 200406/26/2011 Number of children Unknown 3 2 daughters, 1 son 06/26/[address]: 085384287 Never drinks alcohol 06/26/2011 Has the patient [...] PENICILLINS Unknown 06/26/2011 No Inactive Date Active [id number] REDUCTASE INHIBITORS Unknown 06/26/2011 No Inactive Date Active SULFA (SULFONAMIDES) Unknown 01/02/2017 No Inactive Date Active Past Medical History Illness Codes Condition Status Onset Date Resolved Date Encounter for follow-up examination after completed treatment [...] ICD-10: J45.20 Active 03/23/2016 Unknown Mixed hyperlipidemia ICD- 9: 272.4 ICD-10: [...] 06/11/2015 Unknown Pelvic and perineal pain ICD-9: [id number] ICD-10: R10.2 Active 06/11/2015 Unknown Well woman [...] Problems Condition Codes Effective Dates Condition Status Encounter for follow-up examination after completed treatment [...] 493.20 ICD-10: J45.20 03/23/2016 Active Mixed hyperlipidemia ICD- 9: 272.4 ICD-10: [...] 06/11/2015 Active Pelvic and perineal pain ICD-9: [id number] ICD-10: R10.2 06/11/2015 Active Well woman exam [...] Instructions lidocaine 4 % topical patch RxNorm: 4701667 1 Patch TOP UD 12/03/2018 No Stop Date Active if too expensive get OTC salon pas amlodipine 5 mg tablet RxNorm: 801846 1 Tablet(s) PO daily 11/09/2018 06/06/2019 Active ProAir HFA 90 mcg/actuation aerosol inhaler RxNorm: 8534914 1-2 INH QID as needed 11/07/2018 03/06/2019 Active prednisone 10 mg tablet RxNorm: 348965 1 Tablet(s) PO UD 2tabs bid x3days, then 2tabs AM and 1tabPM x3days, then 1tab BID x 3days then 1tab AM x 3 days then stop 11/07/2018 No Stop Date Active albuterol sulfate 1.25 mg/3 mL solution for nebulization RxNorm: 082494 3 Milliliter(s) INH Q4 PRN as needed dyspnea from COPD 11/07/2018 11/01/2019 Active valacyclovir 1 gram tablet RxNorm: 455955 1 Tablet(s) PO BID 11/07/2018 11/20/2018 Inactive gemfibrozil 600 mg tablet RxNorm: 246713 1 TABLET(S) PO TAKE ONE TABLET BY MOUTH TWICE DAILY 10/15/2018 07/11/2019 Active Diflucan 150 mg tablet RxNorm: 795109 1 Tablet(s) PO daily 09/04/2018 09/13/2018 Inactive amlodipine 2.5 mg tablet RxNorm: 522717 1 Tablet(s) PO daily 09/04/2018 11/08/2018 Inactive albuterol sulfate 1.25 mg/3 mL solution for nebulization RxNorm: 747262 3 Milliliter(s) INH Q4 PRN as needed dyspnea 07/10/2018 11/06/2018 Inactive Diflucan 150 mg tablet RxNorm: 277704 1 Tablet(s) PO daily x 3 days then may repeat in 10 days if symptoms are not resolved in throat 06/19/2018 06/30/2018 Inactive Keflex 500 mg capsule RxNorm: 778982 1 Capsule(s) PO TID 06/15/2018 06/21/2018 Inactive Keflex 500 mg capsule RxNorm: 951015 1 Capsule(s) PO TID 06/15/2018 06/14/2018 Inactive paroxetine 20 mg tablet RxNorm: 2254574 TAKE 1/2 TABLET BY MOUTH EVERY DAY 05/09/2018 02/02/2019 Active prednisone 20 mg tablet RxNorm: 248152 2 Tablet(s) PO daily 03/13/2018 03/22/2018 Inactive Celebrex 200 mg capsule RxNorm: 115830 TAKE 1 CAPSULE BY MOUTH TWO TIMES DAILY 03/08/2018 09/03/2018 Inactive - First Attempt Ref: [id number] Singulair 10 mg tablet RxNorm: 175890 Tablet(s) TAKE 1 TABLET BY MOUTH DAILY 02/27/2018 02/21/2019 Active Kenalog 40 mg/mL suspension for injection RxNorm: 5455684 1 Milliliter(s) Inj 02/02/2018 02/02/2018 Inactive Singulair 10 mg tablet RxNorm: 364748 TAKE 1 TABLET BY MOUTH DAILY 01/05/2018 02/26/2018 Inactive - First Attempt Ref: [id number] pantoprazole 40 mg tablet,delayed release RxNorm: 899274 Tablet(s) TAKE 1 TABLET DAILY 12/19/2017 01/07/2018 Inactive gemfibrozil 600 mg tablet RxNorm: 937127 1 TABLET(S) PO TAKE ONE TABLET BY MOUTH TWICE DAILY 12/05/2017 08/31/2018 Inactive albuterol sulfate 1.25 mg/3 mL solution for nebulization RxNorm: 356222 3 Milliliter(s) INH Q4 PRN as needed dyspnea 11/22/2017 05/20/2018 Inactive albuterol sulfate 1.25 mg/3 mL solution for nebulization RxNorm: 351645 3 Milliliter(s) INH Q4 PRN as needed dyspnea 11/02/2017 11/21/2017 Inactive methylprednisolone 4 mg tablets in a dose pack RxNorm: 377075 1 Tablet(s) PO UD 09/01/2017 No Stop Date Active albuterol sulfate 1.25 mg/3 mL solution for nebulization RxNorm: 698864 3 Milliliter(s) INH Q4 PRN as needed dyspnea 09/01/2017 11/01/2017 Inactive Keflex 500 mg capsule RxNorm: 396620 1 Capsule(s) PO TID 09/01/2017 09/10/2017 Inactive methylprednisolone 4 mg tablets in a dose pack RxNorm: 334154 1 Tablet(s) PO UD To start tomorrow 08/21/2017 08/31/2017 Inactive Kenalog 40 mg/mL suspension for injection RxNorm: 7175210 Milliliter(s) Inj 08/21/2017 08/21/2017 Inactive Levaquin 500 mg tablet RxNorm: 503856 1 Tablet(s) PO daily 08/21/2017 08/27/2017 Inactive Ativan 0.5 mg tablet RxNorm: 039875 1 Tablet(s) PO 1 hour before MRI, may repeat dose x1 07/21/2017 07/20/2017 Inactive Ativan 0.5 mg tablet RxNorm: 289623 1 Tablet(s) PO 1 hour before MRI, may repeat dose x1 07/21/2017 07/21/2017 Inactive ProAir HFA 90 mcg/actuation aerosol inhaler RxNorm: 7032341 1-2 INH QID as needed 07/18/2017 11/14/2017 Inactive Kenalog 40 mg/mL suspension for injection RxNorm: 5737060 Milliliter(s) Inj 06/30/2017 06/30/2017 Inactive albuterol sulfate 1.25 mg/3 mL solution for nebulization RxNorm: 297002 3 Milliliter(s) INH Q4 PRN as needed dyspnea 06/07/2017 08/31/2017 Inactive Keflex 500 mg capsule RxNorm: 540340 1 Capsule(s) PO TID 06/02/2017 06/01/2017 Inactive Keflex 500 mg capsule RxNorm: 266562 1 Capsule(s) PO TID 06/02/2017 06/08/2017 Inactive methylprednisolone 4 mg tablets in a dose pack RxNorm: 379729 1 Tablet(s) PO UD To start tomorrow 05/10/2017 08/20/2017 Inactive Kenalog 40 mg/mL suspension for injection RxNorm: 4726693 Milliliter(s) Inj 05/09/2017 05/09/2017 Inactive Voltaren 1 % topical gel RxNorm: 390550 1 Application TOP TID as needed 05/08/2017 No Stop Date Active paroxetine 20 mg tablet RxNorm: 2667628 TAKE 1/2 TABLET BY MOUTH EVERY DAY 05/03/2017 04/27/2018 Inactive gemfibrozil 600 mg tablet RxNorm: 255191 1 TABLET(S) PO TAKE ONE TABLET BY MOUTH TWICE DAILY 02/21/2017 11/17/2017 Inactive Celebrex 200 mg capsule RxNorm: 790617 1 Capsule(s) PO BID 02/08/2017 02/02/2018 Inactive Celebrex 200 mg capsule RxNorm: 948408 1 Capsule(s) PO BID TAKE 1 CAPSULE TWICE DAILY 02/02/2017 02/07/2017 Inactive ketoconazole 2 % shampoo RxNorm: 541229 1 Application TOP daily x 1 week then weekly as needed for rash 01/31/2017 No Stop Date Active DC topical cream ProAir RespiClick 90 mcg/actuation breath activated RxNorm: 0125309 1 -2 INH Q4H as needed ASTHMA 01/31/2017 07/17/2017 Inactive Kenalog 40 mg/mL suspension for injection RxNorm: 1046019 1.5 Milliliter(s) Inj 01/30/2017 01/30/2017 Inactive Levaquin 500 mg tablet RxNorm: 394072 1 Tablet(s) PO daily 01/30/2017 02/05/2017 Inactive Celebrex 200 mg capsule RxNorm: 570871 1 Capsule(s) PO BID TAKE 1 CAPSULE TWICE DAILY 01/30/2017 02/01/2017 Inactive methylprednisolone 4 mg tablets in a dose pack RxNorm: 712402 1 Tablet(s) PO UD 01/30/2017 05/08/2017 Inactive ketoconazole 2 % shampoo RxNorm: 031643 1 Application TOP daily x 1 week then weekly as needed for rash 12/30/2016 01/30/2017 Inactive DC topical cream aspirin 81 mg tablet,delayed release RxNorm: 930771 1 Tablet(s) PO daily 12/29/2016 No Stop Date Active ketoconazole 2 % topical cream RxNorm: 515124 1 Application TOP daily x 1 week then weekly as needed for rash 12/29/2016 12/29/2016 Inactive Singulair 10 mg tablet RxNorm: 305570 Tablet(s) TAKE 1 TABLET DAILY 11/30/2016 11/23/2017 Inactive pantoprazole 40 mg tablet,delayed release RxNorm: 828623 Tablet(s) TAKE 1 TABLET DAILY 11/30/2016 11/23/2017 Inactive paroxetine 20 mg tablet RxNorm: 3438055 Tablet(s) TAKE ONE-HALF TABLET BY MOUTH EVERY DAY 11/25/2016 05/02/2017 Inactive paroxetine 20 mg tablet RxNorm: 1797280 Tablet(s) TAKE ONE-HALF TABLET BY MOUTH EVERY DAY 11/17/2016 11/24/2016 Inactive Levaquin 500 mg tablet RxNorm: 462874 1 Tablet(s) PO daily 10/11/2016 11/24/2016 Inactive pantoprazole 40 mg tablet,delayed release RxNorm: 813960 TAKE 1 TABLET DAILY 08/22/2016 11/29/2016 Inactive gemfibrozil 600 mg tablet RxNorm: 604203 1 TABLET(S) PO TAKE ONE TABLET BY MOUTH TWICE DAILY 05/06/2016 01/30/2017 Inactive temazepam 7.5 mg capsule RxNorm: 918433 1 Capsule(s) PO HS PRN 03/24/2016 No Stop Date Active Singulair 10 mg tablet RxNorm: 750415 Tablet(s) TAKE 1 TABLET DAILY 03/07/2016 11/29/2016 Inactive Singulair 10 mg tablet RxNorm: 972067 Tablet(s) TAKE 1 TABLET DAILY 03/07/2016 03/06/2016 Inactive pantoprazole 40 mg tablet,delayed release RxNorm: 173449 TAKE 1 TABLET DAILY 02/15/2016 08/12/2016 Inactive Celebrex 200 mg capsule RxNorm: 978158 1 Capsule(s) PO BID TAKE 1 CAPSULE TWICE DAILY 01/25/2016 01/17/2017 Inactive gemfibrozil 600 mg tablet RxNorm: 101392 1 TABLET(S) PO TAKE ONE TABLET BY MOUTH TWICE DAILY 11/10/2015 05/05/2016 Inactive Patient requests 90 days supply Levaquin 500 mg tablet RxNorm: 319046 1 Tablet(s) PO daily 09/29/2015 10/08/2015 Inactive albuterol sulfate 1.25 mg/3 mL solution for nebulization RxNorm: 533378 3 Milliliter(s) INH PRN as needed dyspnea 09/25/2015 06/06/2017 Inactive Levaquin 500 mg tablet RxNorm: 509705 1 Tablet(s) PO daily 08/24/2015 09/02/2015 Inactive albuterol sulfate HFA 90 mcg/actuation aerosol inhaler RxNorm: 5619459 1-2 Puff(s) INH Q4 PRN as needed 08/24/2015 01/30/2017 Inactive sample and rX provided albuterol sulfate HFA 90 mcg/actuation aerosol inhaler RxNorm: 1764691 1-2 Puff(s) INH Q4 PRN as needed 08/24/2015 08/23/2015 Inactive sample and rX provided paroxetine 20 mg tablet RxNorm: 9116452 Tablet(s) TAKE ONE-HALF TABLET BY MOUTH EVERY DAY 08/21/2015 03/17/2016 Inactive pantoprazole 40 mg tablet,delayed release RxNorm: 569436 1 Tablet(s) PO daily 07/27/2015 07/26/2015 Inactive pantoprazole 40 mg tablet,delayed release RxNorm: 402822 1 Tablet(s) PO daily 07/27/2015 01/22/2016 Inactive gemfibrozil 600 mg tablet RxNorm: 546234 1 TABLET(S) PO TAKE ONE TABLET BY MOUTH TWICE DAILY 07/10/2015 11/09/2015 Inactive nystatin (bulk) 100 million unit powder RxNorm: 1 APPLICATION TOP TID 06/25/2015 07/15/2015 Inactive Kenalog 40 mg/mL suspension for injection RxNorm: 3098052 Milliliter(s) Inj 05/29/2015 05/29/2015 Inactive Keflex 500 mg capsule RxNorm: 131141 1 Capsule(s) PO TID 05/29/2015 06/07/2015 Inactive nystatin (bulk) 100 million unit powder RxNorm: 1 Application TOP TID 05/29/2015 06/18/2015 Inactive ceftriaxone 500 mg solution for injection RxNorm: 2731084 Inj 05/29/2015 05/29/2015 Inactive Fioricet 50 mg-325 mg-40 mg tablet RxNorm: 442504 1 Tablet(s) PO Q6 PRN as needed 04/20/2015 07/18/2015 Inactive Bactroban 2 % topical ointment RxNorm: 660162 1 TOP BID 03/26/2015 No Stop Date Active Align 4 mg capsule RxNorm: 025594 1 Capsule(s) PO daily 03/19/2015 12/28/2016 Inactive Singulair 10 mg tablet RxNorm: 540849 TAKE 1 TABLET DAILY 03/02/2015 02/24/2016 Inactive Bactroban 2 % topical ointment RxNorm: 474153 1 APPLICATION TOP BID 12/02/2014 12/11/2014 Inactive right nare ceftriaxone 500 mg solution for injection RxNorm: 871927 Inj 10/15/2014 10/15/2014 Inactive Keflex 500 mg capsule RxNorm: 807950 1 Capsule(s) PO BID 10/15/2014 10/28/2014 Inactive Kenalog 40 mg/mL suspension for injection RxNorm: 8915226 Milliliter(s) Inj 10/15/2014 10/15/2014 Inactive prednisone 20 mg tablet RxNorm: 990268 1 Tablet(s) PO daily 10/15/2014 10/24/2014 Inactive Tudorza Pressair 400 mcg/actuation breath activated RxNorm: 7598850 1 Puff(s) INH BID 10/15/2014 11/13/2014 Inactive gemfibrozil 600 mg tablet RxNorm: 910479 1 Tablet(s) PO TAKE ONE TABLET BY MOUTH TWICE DAILY 09/29/2014 06/25/2015 Inactive Celebrex 200 mg capsule RxNorm: 268113 1 Capsule(s) PO BID TAKE 1 CAPSULE TWICE DAILY 07/31/2014 07/25/2015 Inactive paroxetine 20 mg tablet RxNorm: 474378 TAKE ONE-HALF TABLET BY MOUTH EVERY DAY 07/15/2014 02/09/2015 Inactive Bactroban 2 % topical ointment RxNorm: 352321 1 Application TOP BID 04/10/2014 04/14/2014 Inactive right nare Singulair 10 mg tablet RxNorm: 477563 1 Tablet(s) PO daily TAKE 1 TABLET DAILY 02/27/2014 02/21/2015 Inactive Celebrex 200 mg capsule RxNorm: 728968 1 Capsule(s) PO BID TAKE 1 CAPSULE TWICE DAILY 02/27/2014 07/30/2014 Inactive ciprofloxacin 500 mg tablet RxNorm: 088606 1 Tablet(s) PO BID 02/17/2014 02/26/2014 Inactive prednisone 20 mg tablet RxNorm: 569254 1 Tablet(s) PO daily 02/17/2014 02/21/2014 Inactive Fioricet 50 mg-325 mg-40 mg tablet RxNorm: 838169 1 Tablet(s) PO Q6 PRN 02/17/2014 05/16/2014 Inactive Kenalog 40 mg/mL suspension for injection RxNorm: 7381050 Milliliter(s) Inj 02/17/2014 02/17/2014 Inactive Bactrim 400 mg-80 mg tablet RxNorm: 087198 1 Tablet(s) PO BID 12/25/2013 12/24/2013 Inactive Omnicef 300 mg capsule RxNorm: 924396 1 Capsule(s) PO BID 12/25/2013 01/03/2014 Inactive please dc the bactrim order. pt states she is allergic. Bactrim 400 mg-80 mg tablet RxNorm: 473764 1 Tablet(s) PO BID 12/25/2013 12/25/2013 Inactive gemfibrozil 600 mg tablet RxNorm: 902915 Tablet(s) PO TAKE ONE TABLET BY MOUTH TWICE DAILY 12/12/2013 09/28/2014 Inactive Rocephin 500 mg solution for injection RxNorm: 877705 Inj 12/05/2013 12/05/2013 Inactive Bactroban 2 % topical ointment RxNorm: 876653 1 Application TOP BID right nare 12/05/2013 12/11/2013 Inactive Keflex 500 mg capsule RxNorm: 745546 1 Capsule(s) PO BID 12/05/2013 12/11/2013 Inactive paroxetine 20 mg tablet RxNorm: 214503 Tablet(s) PO TAKE ONE-HALF TABLET BY MOUTH EVERY DAY 07/15/2013 07/14/2014 Inactive Influenza Virus Vaccine 0.5 mL RxNorm: IM 07/09/2013 07/09/2013 Inactive Singulair 10 mg tablet RxNorm: 777057 Tablet(s) PO TAKE 1 TABLET DAILY 05/30/2013 02/26/2014 Inactive Celebrex 200 mg capsule RxNorm: 187740 Capsule(s) PO TAKE 1 CAPSULE TWICE DAILY 04/13/2013 02/26/2014 Inactive Singulair 10 mg tablet RxNorm: 614141 1 Tablet(s) PO daily 02/28/2013 05/29/2013 Inactive gemfibrozil 600 mg tablet RxNorm: 084370 Tablet(s) PO TAKE ONE TABLET BY MOUTH TWICE DAILY 11/28/2012 12/11/2013 Inactive Rocephin 500 mg Solution for Injection RxNorm: 720826 1 Milliliter(s) Inj 10/23/2012 10/23/2012 Inactive paroxetine 20 mg tablet RxNorm: 953710 1/2 Tablet(s) PO daily 07/13/2012 07/14/2013 Inactive TAKE ONE-HALF TABLET BY MOUTH EVERY DAY Fioricet 50 mg-325 mg-40 mg tablet RxNorm: 013962 1 Tablet(s) PO Q6 PRN 04/17/2012 07/15/2012 Inactive gemfibrozil 600 mg tablet RxNorm: 494296 Tablet(s) PO 11/17/2011 11/27/2012 Inactive TAKE ONE TABLET BY MOUTH TWICE DAILY gemfibrozil 600 mg Tab RxNorm: 690667 1 Tablet(s) PO BID 11/16/2011 11/16/2011 Inactive MIDRIN 325 mg-65 mg-100 mg Cap RxNorm: 262300 1 Capsule(s) PO Q4-6H 09/15/2011 04/17/2012 Inactive max 8 tabs/24 hours Influenza Virus Vaccine 0.5 mL RxNorm: IM 07/05/2011 07/05/2011 Inactive Pulmicort Flexhaler 180 mcg/Inhalation Breath Activated RxNorm: 8950186 1 Puff(s) INH daily 06/27/2011 07/26/2011 Inactive Singulair 10 mg tablet RxNorm: 032505 1 Tablet(s) PO daily 06/27/2011 07/26/2011 Inactive Celebrex 200 mg capsule RxNorm: 437154 1 Capsule(s) PO BID 06/27/2011 04/12/2013 Inactive paroxetine 20 mg tablet RxNorm: 987769 1/2 Tablet(s) PO daily 06/27/2011 07/13/2012 Inactive gemfibrozil 600 mg Tab RxNorm: 950487 1 Tablet(s) PO BID 06/27/2011 11/15/2011 Inactive requests 90 day supply-refilled but needs labs amaury. vitamin B6-vitamin E-magnesium Oral RxNorm: Oral No Start Date Active Advil Oral RxNorm: Oral No Start Date Active ranitidine 150 mg tablet RxNorm: 628088 1 Tablet(s) PO daily No Start Date Active Claritin 10 mg tablet RxNorm: 686475 1 Tablet(s) PO daily No Start Date Active Flexeril 5 mg Tab RxNorm: 885094 1/2-2 Tablet(s) PO PRN 1/2-1 po q 8 hours prn back pain or muscle spasms No Start Date Active Dulera 200 mcg-5 mcg/actuation HFA aerosol inhaler RxNorm: 9627915 1 INH BID No Start Date Active folic acid Oral RxNorm: Oral No Start Date Active vitamin N49-kebazkc B1 Oral RxNorm: Oral No Start Date Active chlordiazepoxide-clidinium 5 mg-2.5 mg Cap RxNorm: 369225 1 Capsule(s) PO PRN For IBS No Start Date Active Singulair 10 mg Tab RxNorm: 980160 1 Tablet(s) PO daily No Start Date 06/26/2011 Inactive Omnicef 300 mg capsule RxNorm: 545186 1 Capsule(s) PO BID No Start Date 12/24/2013 Inactive albuterol sulfate HFA 90 mcg/Actuation Aerosol Inhaler RxNorm: 6546501 1-2 Puff(s) INH Q4 PRN No Start Date 08/23/2015 Inactive sample and rX provided aspirin 81 mg Tab, Delayed Release RxNorm: 789314 1 Tablet(s) PO BID No Start Date 12/28/2016 Inactive Tudorza Pressair 400 mcg/actuation Breath Activated RxNorm: 9888005 1 Puff(s) INH BID No Start Date 10/14/2014 Inactive niacin ER 500 mg Tab RxNorm: 459749 1 Tablet(s) PO QHS No Start Date 02/27/2013 Inactive Celebrex 200 mg Cap RxNorm: 108909 1 Capsule(s) PO BID No Start Date 06/26/2011 Inactive loratadine 10 mg Tab RxNorm: 7756656 1 Tablet(s) PO daily No Start Date 02/27/2013 Inactive Nasonex 50 mcg/Actuation [place] RxNorm: 615434 2 [place] NASAL BID No Start Date 06/26/2011 Inactive Zithromax Z-Marty 250 mg Tab RxNorm: 937676 Tablet(s) PO No Start Date 07/11/2011 Inactive 2 tabs today, then tabs 2-5 daily Zithromax Z-Marty 250 mg tablet RxNorm: 577310 Tablet(s) PO UD No Start Date 04/21/2013 Inactive Tessalon Perles 100 mg Cap RxNorm: 299767 1 Capsule(s) PO PRN No Start Date 07/11/2011 Inactive albuterol sulfate HFA 90 mcg/Actuation Aerosol Inhaler RxNorm: 724130 Inhalation No Start Date 06/27/2011 Inactive Nasacort AQ 55 mcg Nasal [place] Aerosol RxNorm: 4480578 1 [place] NASAL PRN No Start Date 12/28/2016 Inactive gemfibrozil 600 mg Tab RxNorm: 636987 1 Tablet(s) PO BID No Start Date 06/26/2011 Inactive Pulmicort Flexhaler 180 mcg/Inhalation Breath Activated RxNorm: 6593361 1 INH daily No Start Date 06/26/2011 Inactive paroxetine 20 mg Tab RxNorm: 091584 1/2 Tablet(s) PO daily No Start Date 06/26/2011 Inactive MIDRIN 325 mg-65 mg-100 mg Cap RxNorm: 935741 1 Capsule(s) PO Q4-6H No Start Date 09/14/2011 Inactive max 8 tabs/24 hours beta carotene Oral RxNorm: Oral No Start Date 12/28/2016 Inactive Medication Administered Medication Codes Instructions Start Date Status Kenalog 40 mg/mL suspension for injection RxNorm: 0279008 1Milliliter 02/02/2018 No longer Active Kenalog 40 mg/mL suspension for injection RxNorm: 1452566 Milliliter 08/21/2017 No longer Active Kenalog 40 mg/mL suspension for injection RxNorm: 2319279 Milliliter 06/30/2017 No longer Active Kenalog 40 mg/mL suspension for injection RxNorm: 0621068 Milliliter 05/09/2017 No longer Active Kenalog 40 mg/mL suspension for injection RxNorm: 9923702 1.5Milliliter 01/30/2017 No longer Active Kenalog 40 mg/mL suspension for injection RxNorm: 5195571 Milliliter 05/29/2015 No longer Active ceftriaxone 500 mg solution for injection RxNorm: 9549983 05/29/2015 No longer Active Kenalog 40 mg/mL suspension for injection RxNorm: 4548396 Milliliter 10/15/2014 No longer Active ceftriaxone 500 mg solution for injection RxNorm: 271606 10/15/2014 No longer Active Kenalog 40 mg/mL suspension for injection RxNorm: 2197875 Milliliter 02/17/2014 No longer Active Rocephin 500 mg solution for injection RxNorm: 669735 12/05/2013 No longer Active Influenza Virus Vaccine 0.5 mL RxNorm: 07/09/2013 No longer Active Rocephin 500 mg Solution for Injection RxNorm: 423861 1Milliliter 10/23/2012 No longer Active Influenza Virus [...] 11/18/2008 completed Assessments Condition Codes Effective Dates Encounter for follow-up examination after completed treatment [...] Pelvic and perineal pain ICD-10: R10.2 ICD-9: GGG5241 06/12/2015 Encounter for screening for malignant neoplasm [...] Visit Reason For Visit Effective Dates Notes sciatica 12/03/2018 hypertension 11/19/2018 hypertension 11/07/2018 hypertension [...] NO Growth Day 2 06/19/2018 Parathyroid Hormone Bnn969 PTH 81.40 pg/ml 05/10/2018 Comp Metabolic Pnk138 NA 142 mEq/L 05/10/2018 Comp Metabolic Mjy816 K 4.1 mEq/L 05/10/2018 Comp Metabolic Euw786 CL 105 mEq/L 05/10/2018 Comp Metabolic Ylr696 CO2 27.0 mEq/L 05/10/2018 Comp Metabolic Eiu576 ANION GAP 14 05/10/2018 Comp Metabolic Trm818 GLUCOSE 95 mg/dL 05/10/2018 Comp Metabolic Hvt654 Creat 0.9 mg/dL 05/10/2018 Comp Metabolic Lpd112 eGFR 65 ml/min/1.73m2 05/10/2018 Comp Metabolic Cjj909 BUN 15 mg/dL 05/10/2018 Comp Metabolic Wnx051 B/C Ratio 16.9 Ratio 05/10/2018 Comp Metabolic Kby697 CALCIUM 9.8 mg/dL 05/10/2018 Comp Metabolic Xoc974 ALK PHOS 77 U/L 05/10/2018 Comp Metabolic Vow136 AST(SGOT) 24 U/L 05/10/2018 Comp Metabolic Mvi680 ALT(SGPT) 23 U/L 05/10/2018 Comp Metabolic Sqy139 BILI T 0.5 mg/dL 05/10/2018 Comp Metabolic Mof628 ALBUMIN 4.8 g/dL 05/10/2018 Comp Metabolic Suo689 TPRO 7.2 g/dL 05/10/2018 Comp Metabolic Wsq848 GLOB 2.5 g/dL 05/10/2018 Comp Metabolic Dho403 A/G Ratio 1.9 Ratio 05/10/2018 Comp Metabolic Qjk007 Osmo 284 mOsmo 05/10/2018 Vitamin D 25 Oh Tec8285 VITAMIN D, 25 HYDROXY 51.58 ng/mL 05/10/2018 [...] 32.1 pg 05/10/2018 Cbc With Differential Ord2 [place]% 9.6 % 05/10/2018 Cbc With Differential Ord2 [...] 3.52 K/ul 05/10/2018 Cbc With Differential Ord2 [place] ABS# 0.8 K/ul 05/10/2018 Cbc With Differential [...] 31.6 pg 01/09/2018 Cbc With Differential Ord2 [place]% 9.8 % 01/09/2018 Cbc With Differential Ord2 [...] 3.05 K/ul 01/09/2018 Cbc With Differential Ord2 [place] ABS# 0.7 K/ul 01/09/2018 Cbc With Differential Ord2 Eos ABS# 0.5 K/ul 01/09/2018 Cbc With Differential Ord2 Baso ABS# 0.0 K/ul 01/09/2018 Tsh Ord6 TSH (3rd IS) 3.12 uIU/mL 01/09/2018 Comp Metabolic Oba711 NA 140 mEq/L 01/09/2018 Comp Metabolic Ves251 K 4.0 mEq/L 01/09/2018 Comp Metabolic Ntr039 CL 105 mEq/L 01/09/2018 Comp Metabolic Crq040 CO2 28.0 mEq/L 01/09/2018 Comp Metabolic Kfj009 ANION GAP 11 01/09/2018 Comp Metabolic Vch195 GLUCOSE 98 mg/dL 01/09/2018 Comp Metabolic Gcx956 Creat 0.7 mg/dL 01/09/2018 Comp Metabolic Mku435 eGFR 87 ml/min/1.73m2 01/09/2018 Comp Metabolic Gzk261 BUN 14 mg/dL 01/09/2018 Comp Metabolic Plp611 B/C Ratio 20.3 Ratio 01/09/2018 Comp Metabolic Vng790 CALCIUM 9.8 mg/dL 01/09/2018 Comp Metabolic Smr143 ALK PHOS 113 U/L 01/09/2018 Comp Metabolic Ptj312 AST(SGOT) 22 U/L 01/09/2018 Comp Metabolic Vue476 ALT(SGPT) 22 U/L 01/09/2018 Comp Metabolic Vld177 BILI T 0.5 mg/dL 01/09/2018 Comp Metabolic Dgv250 ALBUMIN 4.6 g/dL 01/09/2018 Comp Metabolic Kzg466 TPRO 7.0 g/dL 01/09/2018 Comp Metabolic Lab638 GLOB 2.4 g/dL 01/09/2018 Comp Metabolic Bgx714 A/G Ratio 2.0 Ratio 01/09/2018 Comp Metabolic Bpl154 Osmo 280 mOsmo 01/09/2018 Lipid Ord30 CHOL 163 mg/dL 12/27/2016 Lipid Ord30 HDL 63.0 mg/dl 12/27/2016 Lipid Ord30 TRIG 62 mg/dL 12/27/2016 Lipid Ord30 LDL 88 mg/dL 12/27/2016 Lipid Ord30 C/HDL 2.6 Ratio 12/27/2016 Tsh Ord6 hTSH II 2.47 uIU/mL 12/27/2016 Comp Metabolic Dco039 NA 140 mEq/L 12/27/2016 Comp Metabolic Lhj454 K 4.0 mEq/L 12/27/2016 Comp Metabolic Vgj853 CL 105 mEq/L 12/27/2016 Comp Metabolic Uey446 CO2 28.0 mEq/L 12/27/2016 Comp Metabolic Vhq581 ANION GAP 11 12/27/2016 Comp Metabolic Irk478 GLUCOSE 102 mg/dL 12/27/2016 Comp Metabolic Dct687 Creat 0.7 mg/dL 12/27/2016 Comp Metabolic Tho632 eGFR 81 ml/min/1.73m2 12/27/2016 Comp Metabolic Oag201 BUN 15 mg/dL 12/27/2016 Comp Metabolic Xlf093 B/C Ratio 20.3 Ratio 12/27/2016 Comp Metabolic Tbn786 CALCIUM 10.0 mg/dL 12/27/2016 Comp Metabolic Klc019 ALK PHOS 110 U/L 12/27/2016 Comp Metabolic Olo631 AST(SGOT) 20 U/L 12/27/2016 Comp Metabolic Pko565 ALT(SGPT) 22 U/L 12/27/2016 Comp Metabolic Drt057 BILI T 0.5 mg/dL 12/27/2016 Comp Metabolic Sal774 ALBUMIN 4.7 g/dL 12/27/2016 Comp Metabolic Hui741 TPRO 7.2 g/dL 12/27/2016 Comp Metabolic Orb735 GLOB 2.5 g/dL 12/27/2016 Comp Metabolic Rhr781 A/G Ratio 1.9 Ratio 12/27/2016 Comp Metabolic Gfa017 Osmo 280 mOsmo 12/27/2016 Cbc With Differential [...] 31.9 pg 12/27/2016 Cbc With Differential Ord2 [place]% 8.6 % 12/27/2016 Cbc With Differential Ord2 [...] 3.60 K/ul 12/27/2016 Cbc With Differential Ord2 [place] ABS# 0.6 K/ul 12/27/2016 Cbc With Differential [...] 31.7 pg 06/13/2016 Cbc With Differential Ord2 [place]% 8.4 % 06/13/2016 Cbc With Differential Ord2 [...] 3.26 K/ul 06/13/2016 Cbc With Differential Ord2 [place] ABS# 0.6 K/ul 06/13/2016 Cbc With Differential Ord2 Eos ABS# 1.0 K/ul 06/13/2016 Cbc With Differential Ord2 Baso ABS# 0.0 K/ul 06/13/2016 Comp Metabolic Ehf904 NA 141 mEq/L 03/25/2016 Comp Metabolic Czk343 K 4.0 mEq/L 03/25/2016 Comp Metabolic Azh308 CL 103 mEq/L 03/25/2016 Comp Metabolic Gxc833 CO2 28.0 mEq/L 03/25/2016 Comp Metabolic Bps859 ANION GAP 14 03/25/2016 Comp Metabolic Sup020 GLUCOSE 91 mg/dL 03/25/2016 Comp Metabolic Jrj538 Creat 0.8 mg/dL 03/25/2016 Comp Metabolic Ubo170 eGFR 70 ml/min/1.73m2 03/25/2016 Comp Metabolic Ymw370 BUN 16 mg/dL 03/25/2016 Comp Metabolic Rii081 B/C Ratio 19.0 Ratio 03/25/2016 Comp Metabolic Cwb056 CALCIUM 9.8 mg/dL 03/25/2016 Comp Metabolic Suu951 ALK PHOS 111 U/L 03/25/2016 Comp Metabolic Nli419 AST(SGOT) 19 U/L 03/25/2016 Comp Metabolic Etf799 ALT(SGPT) 19 U/L 03/25/2016 Comp Metabolic Ihm402 BILI T 0.6 mg/dL 03/25/2016 Comp Metabolic Eia485 ALBUMIN 4.6 g/dL 03/25/2016 Comp Metabolic Gwh143 TPRO 7.4 g/dL 03/25/2016 Comp Metabolic Ufa589 GLOB 2.8 g/dL 03/25/2016 Comp Metabolic Rny824 A/G Ratio 1.7 Ratio 03/25/2016 Comp Metabolic Oyi020 Osmo 282 mOsmo 03/25/2016 Tsh Ord6 hTSH [...] 32.0 pg 03/25/2016 Cbc With Differential Ord2 [place]% 9.4 % 03/25/2016 Cbc With Differential Ord2 [...] 3.20 K/ul 03/25/2016 Cbc With Differential Ord2 [place] ABS# 0.8 K/ul 03/25/2016 Cbc With Differential Ord2 Eos ABS# 0.8 K/ul 03/25/2016 Cbc With Differential Ord2 Baso ABS# 0.0 K/ul 03/25/2016 GFR CALC 3661395 GFR AA >60 ML/MIN 03/14/2012 GFR CALC 1001928 GFR NON-AA >60 ML/MIN 03/14/2012 TSH 3580055 TSH 2.609 uIU/ML 03/14/2012 LIPID GRP HDL TEST 63 MG/DL 03/14/2012 LIPID GRP TRIG 68 MG/DL 03/14/2012 LIPID GRP TEST LDL 88 MG/DL 03/14/2012 LIPID GRP CHOL 165 MG/DL 03/14/2012 LIPID GRP RCHOL/HDL 2.62 RATIO 03/14/2012 CHEM 14 7718935 AST 24 U/L 03/14/2012 CHEM 14 4639881 ALT 26 IU/L 03/14/2012 CHEM 14 2518867 BUN 17 MG/DL 03/14/2012 CHEM 14 0903977 ALBUMIN 4.8 GM/DL 03/14/2012 CHEM 14 2018031 CHLORIDE 106 MMOL/L 03/14/2012 CHEM 14 2055313 BILI TOT 0.6 MG/DL 03/14/2012 CHEM 14 0194276 ALK PHOS 115 U/L 03/14/2012 CHEM 14 5916387 SODIUM 141 MMOL/L 03/14/2012 CHEM 14 7607019 CREATININE 0.78 MG/DL 03/14/2012 CHEM 14 3022898 CALCIUM 9.9 MG/DL 03/14/2012 CHEM 14 8657303 POTASSIUM 4.2 MMOL/L 03/14/2012 CHEM 14 4910273 PROT TOT 7.4 GM/DL 03/14/2012 CHEM 14 7693222 GLUCOSE 91 MG/DL 03/14/2012 CHEM 14 6558233 BICARB 27 MMOL/L 03/14/2012 CHEM 14 8433315 ANION GAP 8 MEQ/L 03/14/2012 CBC 3789077 WBC 5.9 10e9/L 03/14/2012 CBC 5879656 RBC 4.62 10e12/L 03/14/2012 CBC 4886501 HGB 14.5 g/dL 03/14/2012 CBC 7429792 HCT DET 42.4 % 03/14/2012 CBC 5717605 MCV 91.8 fL 03/14/2012 CBC 5618709 MCH 31.4 pg 03/14/2012 CBC 3226115 MCHC 34.2 g/dL 03/14/2012 CBC 5391047 PLT 370 10e9/L 03/14/2012 CBC 6322310 MPV 10.2 fL 03/14/2012 CBC 9731877 NANO % 36.6 % 03/14/2012 CBC 0637866 LY % 47.6 % 03/14/2012 CBC 5653575 MON % 10.0 % 03/14/2012 CBC 5005605 EOS % 5.6 % 03/14/2012 CBC 8567362 BASO % 0.2 % 03/14/2012 CBC 8197456 RDW 12.3 % 03/14/2012 CBC 7492288 ABS NANO 2.16 10e9/L 03/14/2012 CBC 3173870 ABS LYMPH 2.81 10e9/L 03/14/2012 CBC 1224295 ABS MONO 0.59 10e9/L 03/14/2012 CBC 7968884 ABS EOS 0.33 10e9/L 03/14/2012 CBC 6740703 ABS BASO 0.01 10e9/L 03/14/2012 CBC 1849340 RDW-SD 40.4 fL 03/14/2012 Review of Systems System Result Effective Dates Constitutional No recent illness 12/03/2018 Constitutional No [...] Result Effective Dates Notes Full Exam - Orthopedics Constitutional general appearance [...] Formatting Model/CDA Sections, Assigned to/Juana Ji CPT-4: [id number] 06/28/2018 DRAIN/INJECT JOINT/BURSA CPT-4: 24189 01/29/2018 TRIAMCINOLONE ACET INJ NOS CPT-4: J3301 01/29/2018 PPPS, SUBSEQ VISIT CPT- 4: G0439 01/08/2018 THER/PROPH/DIAG INJ SC/IM CPT-4: 38921 08/21/2017 TRIAMCINOLONE ACET INJ NOS CPT-4: J3301 08/21/2017 ADMIN INFLUENZA VIRUS VAC CPT-4: G0008 07/18/2017 FLU VACC PRSV FREE INC ANTIG CPT-4: 81120 07/18/2017 TRIAMCINOLONE ACET INJ NOS CPT-4: J3301 06/30/2017 TRIAMCINOLONE ACET INJ NOS CPT-4: J3301 05/09/2017 THER/PROPH/DIAG INJ SC/IM CPT-4: 46909 05/09/2017 TRIAMCINOLONE ACET INJ NOS CPT-4: J3301 01/30/2017 PPPS, SUBSEQ VISIT CPT- 4: G0439 01/02/2017 ADMIN INFLUENZA VIRUS VAC CPT-4: G0008 07/13/2016 FLU VACC PRSV FREE INC ANTIG CPT-4: 45477 07/13/2016 ADMIN INFLUENZA VIRUS VAC CPT-4: G0008 07/10/2015 FLU VACC 4 KARI 3 YRS PLUS IM Formatting Model/CDA Sections, Assigned to/Juana Ji SNOMED CT: 13835254 CPT-4: 15441Tqrmzcs 07/10/2015 TRIAMCINOLONE ACET INJ NOS CPT-4: J3301 05/29/2015 ROCEPHIN, PER 250 MG CPT- 4: J0696 05/29/2015 THER/PROPH/DIAG INJ SC/IM CPT-4: 26553 10/15/2014 TRIAMCINOLONE ACET INJ NOS CPT-4: J3301 10/15/2014 ROCEPHIN, PER 250 MG CPT- 4: J0696 10/15/2014 THER/PROPH/DIAG INJ SC/IM CPT-4: 97846 02/17/2014 TRIAMCINOLONE ACET INJ NOS CPT-4: J3301 02/17/2014 ROCEPHIN, PER 250 MG CPT- 4: J0696 12/05/2013 ADMIN INFLUENZA VIRUS VAC CPT-4: G0008 07/09/2013 FLULAVAL VACC, 3 YRS & >, IM CPT-4: Q2036 07/09/2013 ROCEPHIN, PER 250 MG CPT- 4: J0696 10/23/2012 PRESCRIP TRANSMIT VIA ERX SY CPT-4: G8553 10/23/2012 ROUTINE VENIPUNCTURE CPT- 4: 92575 03/14/2012 ADMIN INFLUENZA VIRUS VAC CPT-4: G0008 07/05/2011 FLULAVAL VACC, 3 YRS & >, IM CPT-4: Q2036 07/05/2011 ROUTINE VENIPUNCTURE CPT- 4: 20463 06/28/2011 PRESCRIP TRANSMIT VIA ERX SY CPT-4: G8553 06/27/2011 Vital Signs Date Vital 12/03/2018 Blood Pressure 1: 134/72 Code: 8480-6 BMI: 31.1 Code: 46777-3 Heart Rate 1: 89 bpm Height: 5'2" SpO2: 99% Weight: 170 lbs 11/19/2018 Blood Pressure 1: 134/56 Code: 8480-6 BMI: 31.1 Code: 16621-7 Heart Rate 1: 88 bpm Height: 5'2" SpO2: 98% Weight: 170 lbs 11/07/2018 Blood Pressure 1: 140/70 Code: 8480-6 BMI: 31.1 Code: 49535-2 Heart Rate 1: 91 bpm Height: 5'2" SpO2: 99% Weight: 170 lbs 09/04/2018 Blood Pressure 1: 140/80 Code: 8480-6 BMI: 31.3 Code: 02802-5 Heart Rate 1: 82 bpm Height: 5'2" SpO2: 95% Weight: 171 lbs 07/10/2018 Blood Pressure 1: 144/46 Code: 8480-6 BMI: 31.5 Code: 83222-6 Heart Rate 1: 86 bpm Height: 5'2" SpO2: 97% Weight: 172 lbs 06/19/2018 Blood Pressure 1: 150/80 Code: 8480-6 BMI: 31.5 Code: 46863-3 Heart Rate 1: 94 bpm Height: 5'2" SpO2: 96% Weight: 172 lbs 6 oz 01/29/2018 Blood Pressure 1: 148/66 Code: 8480-6 BMI: 31.8 Code: 24516-4 Heart Rate 1: 80 bpm Height: 5'2" SpO2: 96% Weight: 174 lbs 01/08/2018 Blood Pressure 1: 122/72 Code: 8480-6 BMI: 32.0 Code: 05634-3 Heart Rate 1: 79 bpm Height: 5'2" SpO2: 99% Weight: 175 lbs 08/21/2017 Blood Pressure 1: 162/78 Code: 8480-6 BMI: 32.2 Code: 80721-8 Heart Rate 1: 82 bpm Height: 5'2" SpO2: 97% Temperature: 36.6 (C) / 97.8 (F) Weight: 176 lbs 07/18/2017 Blood Pressure 1: 136/70 Code: 8480-6 BMI: 31.9 Code: 85957-1 Heart Rate 1: 81 bpm Height: 5'2" SpO2: 96% Weight: 174 lbs 8 oz 06/30/2017 Blood Pressure 1: 128/74 Code: 8480-6 BMI: 31.8 Code: 42854-5 Heart Rate 1: 89 bpm Height: 5'2" SpO2: 97% Weight: 174 lbs 05/08/2017 Blood Pressure 1: 148/82 Code: 8480-6 BMI: 30.9 Code: 75335-4 Heart Rate 1: 79 bpm Height: 5'2" SpO2: 95% Weight: 169 lbs 02/14/2017 Blood Pressure 1: 126/72 Code: 8480-6 Heart Rate 1: 76 bpm Height: 5'2" SpO2: 97% Weight: 01/31/2017 Blood Pressure 1: 154/80 Code: 8480-6 BMI: 32.0 Code: 03280-3 Heart Rate 1: 81 bpm Height: 5'2" SpO2: 97% Weight: 175 lbs 01/30/2017 Blood Pressure 1: 136/78 Code: 8480-6 Heart Rate 1: 92 bpm Height: 5'2" SpO2: 96% Temperature: 37.4 (C) / 99.3 (F) Weight: 01/02/2017 Blood Pressure 1: 146/66 Code: 8480-6 BMI: 31.8 Code: 56195-3 Heart Rate 1: 81 bpm Height: 5'2" SpO2: 98% Weight: 174 lbs 12/29/2016 Blood Pressure 1: 140/78 Code: 8480-6 BMI: 31.8 Code: 43124-9 Heart Rate 1: 88 bpm Height: 5'2" SpO2: 97% Weight: 174 lbs 03/24/2016 Blood Pressure 1: 132/88 Code: 8480-6 BMI: 31.6 Code: 93415-3 Heart Rate 1: 91 bpm Height: 5'2" SpO2: 99% Weight: 173 lbs 09/25/2015 Blood Pressure 1: 112/60 Code: 8480-6 BMI: 31.3 Code: 76938-3 Heart Rate 1: 85 bpm Height: 5'2" SpO2: 97% Weight: 171 lbs 08/24/2015 Blood Pressure 1: 142/60 Code: 8480-6 BMI: 30.9 Code: 20762-5 Heart Rate 1: 94 bpm Height: 5'2" SpO2: 97% Weight: 169 lbs 06/12/2015 Blood Pressure 1: 122/64 Code: 8480-6 BMI: 31.1 Code: 06039-8 Heart Rate 1: 91 bpm Height: 5'2" SpO2: 97% Weight: 170 lbs 05/29/2015 Blood Pressure 1: 150/78 Code: 8480-6 BMI: 31.6 Code: 51405-9 Heart Rate 1: 79 bpm Height: 5'2" SpO2: 93% Weight: 173 lbs 03/26/2015 Blood Pressure 1: 124/82 Code: 8480-6 BMI: 31.8 Code: 54913-3 Heart Rate 1: 80 bpm Height: 5'2" Respiratory Rate: 20 bpm Weight: 174 lbs 03/17/2015 Blood Pressure 1: 128/78 Code: 8480-6 BMI: 31.8 Code: 96971-8 Heart Rate 1: 84 bpm Height: 5'2" Respiratory Rate: 20 bpm Weight: 174 lbs 10/15/2014 Blood Pressure 1: 130/64 Code: 8480-6 BMI: 32.6 Code: 87358-8 Heart Rate 1: 80 bpm Height: 5'2" Weight: 178 lbs 04/10/2014 Blood Pressure 1: 128/70 Code: 8480-6 BMI: 31.6 Code: 97699-5 Heart Rate 1: 80 bpm Height: 5'2" Weight: 173 lbs 02/17/2014 Blood Pressure 1: 108/58 Code: 8480-6 BMI: 32.0 Code: 17258-6 Heart Rate 1: 80 bpm Height: 5'2" Temperature: 37.4 (C) / 99.3 (F) Weight: 175 lbs 12/05/2013 Blood Pressure 1: 144/80 Code: 8480-6 Heart Rate 1: 72 bpm SpO2: 98% Temperature: 36.9 (C) / 98.4 (F) Weight: 177 lbs 09/25/2013 Blood Pressure 1: 136/82 Code: 8480-6 BMI: 32.7 Code: 45440-5 Heart Rate 1: 84 bpm Height: 5'2" Weight: 179 lbs 07/09/2013 Blood Pressure 1: 144/70 Code: 8480-6 BMI: 32.0 Code: 83364-2 Heart Rate 1: 76 bpm Height: 5'2" Weight: 175 lbs 2013 Blood Pressure 1: 128/72 Code: 8480-6 BMI: 31.8 Code: 85829-7 Heart Rate 1: 68 bpm Height: 5'2" Weight: 174 lbs 03/22/2013 Blood Pressure 1: 128/68 Code: 8480-6 BMI: 31.8 Code: 41162-0 Heart Rate 1: 68 bpm Height: 5'2" Weight: 174 lbs 02/28/2013 Blood Pressure 1: 128/72 Code: 8480-6 BMI: 31.5 Code: 12816-9 Heart Rate 1: 80 bpm Height: 5'2" Weight: 172 lbs 10/23/2012 Blood Pressure 1: 124/78 Code: 8480-6 Heart Rate 1: 68 bpm Temperature: 36.8 (C) / 98.2 (F) Weight: 172 lbs 03/08/2012 Blood Pressure 1: 124/68 Code: 8480-6 Heart Rate 1: 80 bpm Weight: 171 lbs 09/28/2011 Blood Pressure 1: 112/58 Code: 8480-6 BMI: 31.6 Code: 33557-2 Heart Rate 1: 76 bpm Height: 5'2" Respiratory Rate: 16 bpm Weight: 173 lbs 06/27/2011 Blood Pressure 1: 117/61 Code: 8480-6 BMI: 30.4 Code: 79955-5 Heart Rate 1: 86 bpm Height: 5'3" Weight: 171 lbs 8 oz Functional Status No Functional Status data History of Present Illness Symptom Name Status Result Effective Date Notes Location on the right 12/03/2018 None Quality [...] 3 days per week 01/08/2018 works at [employer] Annual Medicare Wellness Exam Handling Stress often [...] 03/08/2012 Works 3 days per week at [email or web address], is retired osteoarthritis Frequency of Episodes unchanged [...] data Encounters Encounter Performer Location Codes Date 87946 EST. PATIENT, LEVEL III Diagnosis: Encounter for follow-up examination after completed treatment for conditions other than malignant neoplasm[ICD10: Z09] Diagnosis: Low back pain[ICD10: M54.5] [facility] CPT-4: 61118 12/03/2018 ([id number]) 62438 EST. PATIENT, LEVEL III Diagnosis: Postherpetic trigeminal neuralgia[ICD10: B02.22] Deneen Rosenberg MD [facility] CPT-4: 19513 11/19/2018 ([id number]) 20720 EST. PATIENT, LEVEL III Diagnosis: Chronic obstructive pulmonary disease with (acute) exacerbation[ICD10: J44.1] Diagnosis: Postherpetic trigeminal neuralgia[ICD10: B02.22] Deneen Rosenberg MD [facility] CPT-4: 55578 11/07/2018 ([id number]) 76055 EST. PATIENT, LEVEL IV Diagnosis: Essential (primary) hypertension[ICD10: I10] Diagnosis: Chronic frontal sinusitis[ICD10: J32.1] Deneen Rosenberg MD [facility] CPT-4: 46617 09/04/2018 ([id number]) 71911 EST. PATIENT, LEVEL III Diagnosis: Other retention of urine[ICD10: R33.8] Diagnosis: Mild intermittent asthma with (acute) exacerbation[ICD10: J45.21] Deneen Rosenberg MD [facility] CPT-4: 64671 07/10/2018 ([id number]) 31285 EST. PATIENT, LEVEL IV Diagnosis: Primary hyperparathyroidism[ICD10: E21.0] Diagnosis: Personal history of other diseases of the musculoskeletal system and connective tissue[ICD10: Z87.39] Deneen Rosenberg MD [facility] CPT-4: 77288 06/19/2018 [id number] EST. PATIENT, LEVEL III Diagnosis: Low back pain[ICD10: M54.5] Diagnosis: Sciatica, right side[ICD10: M54.31] Chastity Rosenberg MD, [facility] CPT- 4: 56824 01/29/2018 21134 EST. PATIENT, LEVEL III Diagnosis: Mild intermittent asthma with (acute) exacerbation[ICD10: J45.21] Diagnosis: Cough[ICD10: R05] Diagnosis: Other allergic rhinitis[ICD10: J30.89] Chastity Rosenberg MD, [facility] CPT- 4: 73198 08/21/2017 ([id number]) 05626 EST. PATIENT, LEVEL IV Diagnosis: Mild intermittent asthma with (acute) exacerbation[ICD10: J45.21] Diagnosis: Essential (primary) hypertension[ICD10: I10] Diagnosis: Encounter for immunization[ICD10: Z23] Diagnosis: Sciatica, right side[ICD10: M54.31] Diagnosis: Low back pain[ICD10: M54.5] Deneen Rosenberg MD, [facility] CPT-4: 97225 07/18/2017 ([id number]) 12234 EST. PATIENT, LEVEL III Diagnosis: Cough[ICD10: R05] Diagnosis: Other allergic rhinitis[ICD10: J30.89] Lalitha Rosenberg MD, [facility] CPT-4: 42928 06/30/2017 [id number] EST. PATIENT, LEVEL III Diagnosis: Low back pain[ICD10: M54.5] Diagnosis: Dizziness and giddiness[ICD10: R42] Chastity Rosenberg MD, [facility] CPT- 4: 12451 05/08/2017 ([id number]) 86161 EST. PATIENT, LEVEL III Diagnosis: Essential (primary) hypertension[ICD10: I10] Diagnosis: Low back pain[ICD10: M54.5] Diagnosis: Sciatica, right side[ICD10: M54.31] Deneen Rosenberg MD, [facility] CPT- 4: 86864 02/14/2017 ([id number]) 91049 EST. PATIENT, LEVEL III Diagnosis: Essential (primary) hypertension[ICD10: I10] Deneen Rosenberg MD, [facility] CPT-4: 39305 01/31/2017 ([id number]) 10263 EST. PATIENT, LEVEL III Diagnosis: Cough[ICD10: R05] Diagnosis: Acute recurrent maxillary sinusitis[ICD10: J01.01] [facility] CPT-4: 34120 01/30/2017 ([id number]) 77545 EST. PATIENT, LEVEL III Diagnosis: Essential (primary) hypertension[ICD10: I10] Diagnosis: Mild intermittent asthma with (acute) exacerbation[ICD10: J45.21] Diagnosis: Tinea corporis[ICD10: B35.4] [facility] CPT-4: 04365 12/29/2016 ([id number]) Miscellaneous no charge Diagnosis: Epistaxis[ICD10: R04.0] Chastity Rosenberg MD, [facility] CPT-4: 45160 04/01/2016 ([id number]) 57849 EST. PATIENT, LEVEL IV Diagnosis: Essential (primary) hypertension[ICD10: I10] Diagnosis: Mild intermittent asthma, uncomplicated[ICD10: J45.20] Diagnosis: Insomnia, unspecified[ICD10: G47.00] Lalitha Rosenberg MD, [facility] CPT-4: 13406 03/24/2016 22493 EST. PATIENT, LEVEL III Diagnosis: Mild intermittent asthma with (acute) exacerbation[ICD10: J45.21] Diagnosis: Epistaxis[ICD10: R04.0] Chastity Rosenberg MD, [facility] CPT-4: 33396 09/25/2015 ([id number]) 03860 EST. PATIENT, LEVEL III Diagnosis: Acute recurrent maxillary sinusitis[ICD10: J01.01] Diagnosis: Allergic rhinitis due to pollen[ICD10: J30.1] Lalitha Rosenberg MD, [facility] CPT-4: 09682 08/24/2015 ([id number]) 39782 EST. PATIENT, LEVEL IV Diagnosis: Well woman exam[ICD9: V70.0] Diagnosis: Encounter for screening for malignant neoplasm of vagina[ICD10: Z12.72] Diagnosis: Pelvic and perineal pain[ICD10: R10.2] Lalitha Rosenberg MD, [facility] CPT-4: 37135 06/12/2015 ([id number]) 83316 EST. PATIENT, LEVEL III Diagnosis: Tinea corporis[ICD9: 110.5] Diagnosis: ACUTE MAXILLARY SINUSITIS[ICD9: 461.0] Lalitha Rosenberg MD, [facility] CPT-4: 54610 05/29/2015 ([id number]) 99734 EST. PATIENT, LEVEL IV Diagnosis: Skin tag[ICD9: 701.9] Diagnosis: Seborrheic keratoses[ICD9: 702.19] Diagnosis: Comedone[ICD9: 706.1] Diagnosis: IMPACTED CERUMEN[ICD9: 380.4] [facility] CPT-4: 59925 03/26/2015 ([id number]) 05870 EST. PATIENT, LEVEL IV Diagnosis: ESSENTIAL HYPERTENSION[ICD9: 401.9] Diagnosis: HYPERLIPIDEMIA[ICD9: 272.4] Diagnosis: Fatigue[ICD9: 780.79] Diagnosis: INSECT BITE HIP/LEG[ICD9: 916.4] Rosemarie Rosenberg MD, [facility] CPT-4: 48159 03/17/2015 ([id number]) 43464 EST. PATIENT, LEVEL IV Diagnosis: Acute bronchitis[ICD9: 466.0] Diagnosis: MALAISE AND FATIGUE[ICD9: 780.79] Diagnosis: COUGH[ICD9: 786.2] Diagnosis: CHRONIC OBSTRUCTIVE ASTHMA WITH EXACERBATION[ICD9: 493.22] Deneen Rosenberg MD, [facility] CPT-4: 01959 10/15/2014 ([id number]) 68298 EST. PATIENT, LEVEL III Diagnosis: Acute anterior epistaxis[ICD9: 784.7] Diagnosis: ESSENTIAL HYPERTENSION[ICD9: 401.9] Lalitha Rosenberg MD, [facility] CPT-4: 66797 04/10/2014 ([id number]) 09533 EST. PATIENT, LEVEL III Diagnosis: Acute bronchitis[ICD9: 466.0] Diagnosis: COUGH[ICD9: 786.2] Diagnosis: Nasal congestion[ICD9: 478.19] Deneen Rosenberg MD, [facility] CPT-4: 63349 02/17/2014 ([id number]) 83693 EST. PATIENT, LEVEL III Diagnosis: ACUTE SINUSITIS[ICD9: 461.9] Lalitha Rosenberg MD, [facility] CPT-4: 39245 12/05/2013 ([id number]) 26053 EST. PATIENT, LEVEL IV Diagnosis: HYPERLIPIDEMIA[ICD9: 272.4] Diagnosis: CHRONIC OBSTRUCTIVE ASTHMA[ICD9: 493.20] Diagnosis: SLEEP APNEA NOS[ICD9: 780.57] Diagnosis: GENERAL OSTEOARTHROSIS-MULT[ICD9: 715.09] Deneen Rosenberg MD, [facility] CPT-4: 88736 09/25/2013 ([id number]) 66327 EST. PATIENT, LEVEL III Diagnosis: CHRONIC OBSTRUCTIVE ASTHMA[ICD9: 493.20] Deneen Rosenberg MD, [facility] CPT-4: 47045 07/09/2013 ([id number]) Miscellaneous no charge Diagnosis: CHRONIC OBSTRUCTIVE ASTHMA[ICD9: 493.20] Deneen Rosenberg MD, [facility] CPT-4: 15744 06/11/2013 ([id number]) 22794 EST. PATIENT, LEVEL IV Diagnosis: CHRONIC OBSTRUCTIVE ASTHMA[ICD9: 493.20] Diagnosis: Sleep apnea[ICD9: 780.57] Deneen Rosenberg MD, [facility] CPT-4: 83568 2013 ([id number]) 75327 EST. PATIENT, LEVEL IV Diagnosis: CHRONIC OBSTRUCTIVE ASTHMA[ICD9: 493.20] Diagnosis: OSTEOARTH NOS-UNSPEC[ICD9: 715.90] Diagnosis: MALAISE AND FATIGUE[ICD9: 780.79] Deneen Rosenberg MD, [facility] CPT- 4: 10020 03/22/2013 ([id number]) 58462 EST. PATIENT, LEVEL IV Diagnosis: HYPERLIPIDEMIA[ICD9: 272.4] Diagnosis: OSTEOARTH NOS-UNSPEC[ICD9: 715.90] Diagnosis: MALAISE AND FATIGUE[ICD9: 780.79] Deneen Rosenberg MD, [facility] CPT- 4: 51507 02/28/2013 ([id number]) 31401 EST. PATIENT, LEVEL III Diagnosis: ACUTE SINUSITIS[ICD9: 461.9] Diagnosis: COUGH[ICD9: 786.2] Lalitha Rosenberg MD, [facility] CPT-4: 28912 10/23/2012 ([id number]) 33897 EST. PATIENT, LEVEL IV Diagnosis: ESSENTIAL HYPERTENSION[SNOMED: 38026763] Diagnosis: HYPERLIPIDEMIA[ICD9: 272.4] Diagnosis: CHRONIC OBSTRUCTIVE ASTHMA[ICD9: 493.20] Deneen Rosenberg MD, [facility] CPT-4: 32601 03/08/2012 ([id number]) 46116 EST. PATIENT, LEVEL IV Diagnosis: CHRONIC OBSTRUCTIVE ASTHMA[ICD9: 493.20] Diagnosis: Primary generalized (osteo)arthritis[ICD9: 715.09] Diagnosis: PAIN IN LIMB[ICD9: 729.5] Deneen Rosenberg MD, [facility] CPT-4: 73549 09/28/2011 [id number] EST. PATIENT, LEVEL IV Diagnosis: ACUTE SINUSITIS[ICD9: 461.9] Diagnosis: Asthma[ICD9: 493.90] Diagnosis: Osteoarthritis[ICD9: 715.90] Diagnosis: Hyperlipidemia[ICD9: 272.4] Lalitha Rosenberg MD, [facility] CPT-4: 79317 06/27/2011 Plan of Care Planned Activity Notes Codes Status Date Visit Plan: Low back pain- the patient [...] or concerns. 12/03/2018 Appointment: Chastity Chavira WPtel: [facility] (30 min) Complex 12/03/2018 Patient Education: Patient Medication Summary Completed 12/03/2018 Patient Education: Back Pain Completed 12/03/2018 Visit Plan: Post-herpetic neuralgia - pt to stop acyclovir - finish dose of steroid - monitor symptoms, call if symptoms return. 11/19/2018 Appointment: Deneen Rosenberg WPtel: [facility] (15 min) Moderate 11/19/2018 Patient Education: Patient Medication Summary Completed 11/19/2018 Visit Plan: Trigeminal Neuralgia - due to shingles - rx for prednisone taper and valcyvlovir 1 gram bid. COPD - rx for albuterol and proair. 11/07/2018 Appointment: [facility] ([facility] min) Moderate 11/07/2018 Patient Education: Patient [...] days. 09/04/2018 Appointment: Deneen Rosenberg WPtel: [phone] [facility] (15 min) Moderate 09/04/2018 Patient Education: Patient Medication Summary Completed 09/04/2018 Patient Education: Hypertension Completed 09/04/2018 Visit Plan: Asthma - chronic problem for this patient. We have reviewed chronic treatment strategy, symptom control, and plans for acute exacerbations. No changes today to the current treatment plan as the patient is stable, monitor for acute changes 07/10/2018 Appointment: Deneen Rosenberg WPtel: [phone] [facility] (15 min) Moderate 07/10/2018 Patient Education: Patient Medication Summary Completed 07/10/2018 Appointment: Injection 06/28/2018 Patient Education: Patient Medication Summary Completed 06/28/2018 Visit Plan: Elevated PTH - parathyroid nuclear medicine uptake at [facility] in [place] - 06/26, , are open Osteopenia - discussed the pt's dx and the fact that insurance will not pay for prolia due to lack of dx of Osteoporosis. 06/19/2018 Appointment: Deneen Rosenberg WPtel: [phone] [facility] (15 min) Moderate 06/19/2018 Patient Education: [...] injection. 01/29/2018 Appointment: Chastity Chavira WPtel: [phone] [id number] (30 min) Complex 01/29/2018 Patient Education: Patient [...] care surrogate. 01/08/2018 Appointment: Lalith[facility] Alcala [facility]el[phone] [facility] - Annual Wellness Visit 01/08/2018 [...] acute changes 07/18/2017 Appointment: [facility] ([facility] min) Moderate 07/18/2017 Patient Education: Patient [...] symptoms persist 06/30/2017 Appointment: Lalitha Alcala WPtel[phone] (15 min) Moderate 06/30/2017 Patient [...] or concerns. 05/08/2017 Appointment: Chastity Chavira WPtel: [facility] (30 min) Complex 05/08/2017 Patient [...] improve or if they worsen. 02/14/2017 Appointment: Denene Rosenberg WPtel: [facility] (15 min) Moderate 02/14/2017 Patient Education: Patient Medication Summary Completed 02/14/2017 Care Plan: Referral Order SNOMED-CT : [id number] Pending 02/14/2017 Appointment: Deneen Rosenberg WPtel: [facility] (15 min) Moderate 02/01/2017 Visit Plan: Hypertension - well controlled - continue with current medications, continue with no added salt diet. Pt has been encouraged to exercise daily. The pt has been advised to call the office if there are any acute concerns about change in blood pressure readings at home. Cough - improved from yesterday. 01/31/2017 Appointment: Deneen Rosenberg WPtel: [id number] (15 min) Moderate 01/31/2017 Patient Education: Patient Medication Summary Completed 01/31/2017 Patient Education: Obesity Completed 01/31/2017 Patient Education: Hypertension Completed 01/31/2017 Visit Plan: Sinusitis - Pt has acute infection - pain in face, maxillary region, Pt informed to use decongestant, RX given to patient, sinus rinses also recommended. Call if symptoms do not show improvement. 01/30/2017 Appointment: Lalith[facility] Alcala [facility]el[facility] [phone] [phone] (15 min) Moderate 01/30/2017 Patient Education: [...] shampoo. 12/29/2016 Appointment: [phone] [facility] (15 min) Moderate 12/29/2016 Patient Education: Patient Medication Summary Completed 12/29/2016 Patient Education: Obesity Completed 12/29/2016 Patient Education: Hypertension Completed 12/29/2016 Patient Education: Patient Medication Summary Completed 12/26/2016 Appointment: Injection 07/13/2016 Patient Education: Patient Medication Summary Completed 07/13/2016 Visit Plan: Pt went to ED from office, stating she does not think she will be able to get to her ENT in [place]. 04/01/2016 Appointment: [facility] [phone] [phone] (30 min) Complex 04/01/2016 Patient [...] when traveling 03/24/2016 Appointment: Lalitha Alcala WPtel: [address] [place], [place] [phone] (30 min) [facility] 03/24/2016 Patient Education: Patient Medication Summary [...] Care Plan: COMPLETE CBC AUTOMATED LOINC : 19896-1 Ordered 03/17/2015 Visit Plan: Asthma EXACERBATION - [...] acutely worsen. 10/15/2014 Appointment: Deneen Rosenberg WPtel: [address] [place], [place] [id number] [facility] 10/15/2014 Patient Education: Patient Medication Summary Completed [...] improvement. 12/05/2013 Appointment: Lalitha Alcala [facility]el[facility] [phone] [phone] [place] [address] 12/05/2013 Patient Education: Patient Medication Summary Completed 12/05/2013 Appointment: [facility] [phone] [facility] Follow up 10/01/2013 Visit Plan: Hyperlipidemia - [...] consider cpap. 09/25/2013 Appointment: Deneen Rosenberg WPtel: [facility] Follow up 09/25/2013 Patient Education: Patient Medication Summary Completed 09/25/2013 Visit Plan: Asthma - chronic problem for this patient. We have reviewed chronic treatment strategy, symptom control, and plans for acute exacerbations. No changes today to the current treatment plan as the patient is stable, monitor for acute changes 07/09/2013 Appointment: Deneen Rosenberg WPtel: [facility] Follow up 07/09/2013 Patient Education: Patient Medication Summary Completed 07/09/2013 Appointment: Deneen Rosenberg WPtel: [address] [place], [place] [phone] Follow up 07/01/2013 Appointment: Lalitha Alcala WPtel: [phone] Lab Draw 06/11/2013 Patient Education: Patient [...] noctural hypoxemia. 2013 Appointment: Deneen Rosenberg WPtel: [facility] Other 2013 Patient Education: Patient Medication [...] TUNNEL ENTRAPMENT. 03/22/2013 Appointment: Deneen Rosenberg WPtel: [facility] [place] Other 03/22/2013 Patient Education: Patient [...] check labs. 02/28/2013 Appointment: Deneen Rosenberg WPtel: [facility] Follow up 02/28/2013 Patient Education: Patient Medication Summary Completed 02/28/2013 Visit Plan: Sinusitis - Pt has acute infection - pain in face, maxillary region, Pt informed to use decongestant, RX given to patient, sinus rinses also recommended. Call if symptoms do not show improvement. Rocephin injection today in the office 10/23/2012 Appointment: Lalitha Alcala WPtel: [phone] [place] Sick 10/23/2012 Patient Education: Patient Medication Summary Completed 10/23/2012 Appointment: Deneen Rosenberg WPtel: [facility] [place] Lab Draw 03/14/2012 Patient Education: Patient [...] to medications. 03/08/2012 Appointment: Deneen Rosenberg WPtel: [facility] [place] Other 03/08/2012 Patient Education: Patient Medication Summary Completed 03/08/2012 Patient Education: High Blood Pressure: Essential Hypertension Completed 03/08/2012 Visit Plan: Asthma- controlled by the current medication.. No change in the treatment at this time. Osteoarthritis- pt has been instructed to use celebrex twice daily on the days that she is working. 09/28/2011 Appointment: Deneen Rosenberg WPtel: [facility] Follow up 09/28/2011 Patient Education: Patient Medication Summary Completed 09/28/2011 Appointment: [facility] Rosenberg [facility]Ptel: [phone] [facility] [place] Injection 07/05/2011 Patient Education: Patient Medication Summary Completed 07/05/2011 Appointment: [facility] Rosenberg [facility]Ptel: [phone] [facility] [place] Lab Draw 06/28/2011 Patient Education: Patient [...] as indicated. 06/27/2011 Appointment: Lalitha Alcala WPtel: [address] [place], [place] [phone] Other 06/27/2011 Patient Education: Patient Medication Summary Completed 06/27/2011 Care Plan: CBC (COMPLETE CBC W/AUTO DIFF WBC) LOINC : 65743-8 Ordered 06/27/2011 Care Plan: CHEM 14 (COMPREHEN METABOLIC PANEL) LOINC : 27348-8 Ordered 06/27/2011 Care Plan: LIPID GRP (LIPID PANEL) LOINC : 43860-4 Ordered 06/27/2011 Care Plan: TSH (ASSAY THYROID [...] Rocephin injection today in the office . Sinusitis - Pt has acute infection [...] able to get to her ENT in [place]. Start Align or Culturelle Probiotic Daily, Sample [...] PTH - parathyroid nuclear medicine uptake at [facility] in [place] - 06/26, , are open Osteopenia - [...]
--- OUTSIDE RECORDS SUMMARY | 2019-04-16 06:07 | XMS REPORT | Continuity of Care Document ---
Author Organization Unknown Address Unknown Allergies Active Description Code Type Severity Reaction Onset Reported/Identified Relationship to Patient Clinical Status Yes Horse/Equine Containing Products [id number] Drug Allergy Unknown N/A 07/22/2009 Yes penicillin G [id number] Drug Allergy Unknown N/A 07/22/2009 Yes Sulfa (Sulfonamide Antibiotics) [id number] Drug Allergy Unknown N/A 07/22/2009 Yes clopidogrel bisulfate [id number] Drug Allergy Moderate SEVERE BLEEDING 01/19/2011 Yes TB INGRIS TEST TB INGRIS TEST Unknown N/A 03/15/2016 Yes clopidogrel bisulfate [id number] Drug Allergy Severe SEVERE BLEEDING 04/15/2019 Yes Horse/Equine Containing Products [id number] Drug Allergy Severe SWELLING 04/15/2019 Yes tuberculin, purified protein deriva [id number] Drug Allergy Severe POSTITIVE REACT 04/15/2019 Yes clindamycin [id number] Drug Allergy Moderate DIARRHEA 04/15/2019 Yes Penicillins [id number] Drug Allergy Mild HIVES 04/15/2019 Yes Sulfa (Sulfonamide Antibiotics) [id number] Drug Allergy Mild RASH 04/15/2019 Medications There is no data. Problems Date Dx Coded Attending Type Code Diagnosis Diagnosed By 08/18/2009 Ot 715.34 08/18/2009 Ot 726.12 08/18/2009 Ot V57.1 04/12/2010 Ot 493.90 ASTHMA, UNSPECIFIED 04/12/2010 Ot 574.00 CHOLELITH W AC CHOLECYST 04/12/2010 Ot 574.10 CHOLELITH W CHOLECYS NEC 04/12/2010 Ot 715.90 OSTEOARTHROS NOS-UNSPEC 10/15/2010 Ot 786.05 SHORTNESS OF BREATH 10/15/2010 Ot 786.2 COUGH 01/19/2011 Ot 850.0 CONCUSSION W/O COMA 01/19/2011 Ot 920 CONTUSION FACE/SCALP/NCK 01/19/2011 Ot 959.01 HEAD INJURY, NOS 01/19/2011 Ot E000.8 OTHER EXTERNAL CAUSE STATUS 01/19/2011 Ot E849.0 ACCIDENT IN HOME 01/19/2011 Ot E888.1 FALL STRIKING OBJECT NEC 01/19/2011 Ot V06.1 [id number], COMBINED [ 05/11/2013 GUS SILVA RPA-C Ot 327.23 OBSTRUCTIVE SLEEP APNEA (ADULT) (PEDIATR 05/11/2013 GUS SILVA RPA-C Ot 786.09 RESPIRATORY ABNORM NEC 05/23/2013 ALANNA LION MD Ot 726.2 SHOULDER REGION DIS NEC 05/23/2013 ALANNA LION MD Ot V57.1 PHYSICAL THERAPY NEC 10/15/2014 Ot V76.12 10/15/2014 Ot 401.9 10/15/2014 Ot 493.90 10/15/2014 Ot 592.0 10/15/2014 Ot 715.90 10/15/2014 Ot 722.52 10/15/2014 Ot V49.81 10/15/2014 Ot 401.9 10/15/2014 Ot 493.90 10/15/2014 Ot 715.90 10/15/2014 Ot 733.90 10/15/2014 Ot V49.81 10/15/2014 Ot V82.81 10/15/2014 Ot V76.12 10/15/2014 NICK HARRISON FACC, ALI FACP CCDS Ot 786.59 10/15/2014 FAITH HARRISON, FILIPE Fink Ot 493.90 12/11/2014 FILIPE CUEVAS MD Ot 496 12/11/2014 FILIPE CUEVAS MD Ot 786.2 01/13/2015 FAITH HARRISON, FILIPE Fink [...] V82.81 09/22/2015 Ot V76.12 09/22/2015 NICK HARRISON FACRich, BASSEM GILLIAM CCDS Ot 786.59 09/22/2015 FILIPE CUEVAS MD Ot 493.90 09/22/2015 FILIPE CUEVAS MD Ot 496 09/22/2015 FILIPE CUEVAS MD Ot 786.2 09/22/2015 REBEKAH LARA APRN Ot V76.12 09/22/2015 TRINIDAD CARRASCO MD Ot [...] Ot 715.90 OSTEOARTHROS NOS-UNSPEC 03/15/2016 Ot 722.52 LUMB/LUMBOSAC DISC DEGEN 03/15/2016 Ot V49.81 ASYMPT POSTMENOPAUSAL STATUS (AGE-RELATE 03/15/2016 Ot 401.9 HYPERTENSION NOS 03/15/2016 Ot 493.90 ASTHMA, UNSPECIFIED 03/15/2016 Ot 715.90 OSTEOARTHROS NOS-UNSPEC 03/15/2016 Ot 733.90 BONE CARTILAGE DIS NOS 03/15/2016 Ot V49.81 ASYMPT POSTMENOPAUSAL STATUS (AGE-RELATE 03/15/2016 Ot V82.81 SCREENING FOR OSTEOPOROSIS 03/15/2016 Ot V76.12 OTH SCREEN MAMMO- MALIGN NEOPLASM OF [place]ORENZA 03/15/2016 NICK HARRISON FACRich, BASSEM GILLIAM CCDS Ot 786.59 CHEST PAIN NEC 03/15/2016 FILIPE CUEVAS MD Ot 493.90 ASTHMA, UNSPECIFIED 03/15/2016 FILIPE CUEVAS MD Ot 496 CHR AIRWAY OBSTRUCT NEC 03/15/2016 FILIPE CUEVAS MD Ot 786.2 COUGH 03/15/2016 REBEKAH LARA 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 Ot V76.12 OTH SCREEN MAMMO-MALIGN NEOPLASM OF [place]EN[place] 03/17/2016 SONU DO DARRELL Elzbieta Ot M54.2 CERVICALGIA 03/17/2016 SONUDARRELL DOMINGUEZ DO Ot N39.0 URINARY TRACT INFECTION, SITE NOT SPECIF 03/17/2016 SONU DARRELL BENNETT Ot R07.89 OTHER CHEST PAIN 04/01/2016 ALEX ALLEN 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 Ot R04.0 EPISTAXIS 04/04/2016 ALEX ALLEN 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 Ot R04.0 EPISTAXIS 04/04/2016 ALEX ALLEN 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 Ot R04.0 EPISTAXIS 12/13/2016 Ot V76.12 OTH SCREEN MAMMO- MALIGN NEOPLASM OF [place]EN[place] 12/13/2016 NICK HARRISON FACC, ALI FACP CCDS Ot 786.59 CHEST PAIN NEC 12/13/2016 FILIPE CUEVAS MD Ot 493.90 ASTHMA, UNSPECIFIED 12/13/2016 FILIPE CUEVAS MD Ot 496 CHR AIRWAY OBSTRUCT NEC 12/13/2016 FILIPE CUEVAS MD Ot 786.2 COUGH 12/13/2016 REBEKAH LARA 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 Ot V76.12 OTH SCREEN MAMMO-MALIGN NEOPLASM OF [place]EN[place] 12/13/2016 Ot V76.12 OTH SCREEN MAMMO- MALIGN NEOPLASM OF L[place]EN[place] 12/13/2016 NICK HARRISON FACC, ALI FACP CCDS Ot 786.59 CHEST PAIN NEC 12/13/2016 FILIPE CUEVAS MD Ot 493.90 ASTHMA, UNSPECIFIED 12/13/2016 FILIPE CUEVAS MD Ot 496 CHR AIRWAY OBSTRUCT NEC 12/13/2016 FILIPE CUEVAS MD Ot 786.2 COUGH 12/13/2016 REBEKAH LARA 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 Ot V76.12 OTH SCREEN MAMMO-MALIGN NEOPLASM OF LORENZA 12/13/2016 NICK HARRISON FACC, ALI FACP CCDS Ot 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 12/13/2016 NICK HARRIOSN FACC, ALI FACP CCDS Ot R06.02 SHORTNESS OF BREATH 12/15/2016 NICK HARRISON FACC, ALI FACP CCDS Ot 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 12/15/2016 NICK GRESHAMC, ALI FACP CCDS Ot 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 12/15/2016 NICK GRESHAMC, ALI FACP CCDS Ot J43.8 OTHER EMPHYSEMA 12/21/2016 NICK HARRISON FACC, ALI FACP CCDS Ot 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 12/21/2016 NICK HARRISON FACC, ALI FACP CCDS Ot J43.8 OTHER EMPHYSEMA 12/21/2016 NICK HARRISON FACC, ALI FACP CCDS Ot R06.02 SHORTNESS OF BREATH 12/21/2016 NICK GRESHAMC, ALI FACP CCDS Ot 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 12/21/2016 NICK GRESHAMC, ALI FACP CCDS Ot J43.8 OTHER EMPHYSEMA 12/21/2016 NICK GRESHAMC, ALI FACP CCDS Ot R06.02 SHORTNESS OF BREATH 12/23/2016 NICK HARRISON FACC, ALI FACP CCDS Ot J43.8 OTHER EMPHYSEMA 12/23/2016 NICK GRESHAMC, ALI FACP CCDS Ot R26.89 OTHER ABNORMALITIES OF GAIT AND MOBILITY 12/23/2016 NICK HARRISON FACC, ALI FACP CCDS Ot J43.8 OTHER EMPHYSEMA 12/23/2016 NICK GRESHAMC, ALI FACP CCDS Ot R26.89 OTHER ABNORMALITIES OF GAIT AND MOBILITY 01/12/2017 NICK HARRISON FACC, ALI FACP CCDS Ot 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 01/12/2017 NICK HARRISON FACC, ALI FACP CCDS Ot J43.8 OTHER EMPHYSEMA 01/12/2017 NICK GRESHAMC, ALI FACP CCDS Ot R06.02 SHORTNESS OF BREATH 01/12/2017 NICK HARRISON FACC, ALI FACP CCDS Ot J43.8 OTHER EMPHYSEMA 01/12/2017 NICK GRESHAMC, ALI FACP CCDS Ot R26.89 OTHER ABNORMALITIES OF GAIT AND MOBILITY 01/18/2017 NICK GRESHAMC, ALI FACP CCDS Ot 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 01/18/2017 NICK GRESHAMC, ALI FACP CCDS Ot J43.8 OTHER EMPHYSEMA 01/18/2017 NICK GRESHAMC, ALI FACP CCDS Ot R06.02 SHORTNESS OF BREATH 01/18/2017 NICK HARRISON FACC, ALI FACP CCDS Ot J43.8 OTHER EMPHYSEMA 01/18/2017 NICK GRESHAMC, ALI FACP CCDS Ot R26.89 OTHER ABNORMALITIES OF GAIT AND MOBILITY 07/24/2017 Ot V76.12 OTH SCREEN MAMMO- MALIGN NEOPLASM OF LORENZA 07/24/2017 NICK HARRISON FACC, ALI FACP CCDS Ot 786.59 CHEST PAIN NEC 07/24/2017 FILIPE CUEVAS MD Ot 493.90 ASTHMA, UNSPECIFIED 07/24/2017 FILIPE CUEVAS MD Ot 496 CHR AIRWAY OBSTRUCT NEC 07/24/2017 FILIPE CUEVAS MD Ot 786.2 COUGH 07/24/2017 REBEKAH LARA APRN Ot V76.12 OTH SCREEN MAMMO-MALIGN NEOPLASM OF LORENZA 07/24/2017 NICK HARRISON FAC, ALI FACP CCDS Ot 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 07/24/2017 NICK HARRISON FAC, ALI FACP CCDS Ot J43.8 OTHER EMPHYSEMA 07/24/2017 NICK HARRISON FACC, ALI FACP CCDS Ot R06.02 SHORTNESS OF BREATH 07/24/2017 NICK HARRISON FAC, ALI FACP CCDS Ot J43.8 OTHER EMPHYSEMA 07/24/2017 NICK HARRISON FAC, ALI FACP CCDS Ot R26.89 OTHER ABNORMALITIES OF GAIT AND MOBILITY 08/11/2017 HERMINIO CORTESP Ot Z12.31 ENCNTR SCREEN MAMMOGRAM FOR MALIGNANT NE 08/11/2017 Ot V76.12 OTH SCREEN MAMMO- MALIGN NEOPLASM OF LORENZA 08/11/2017 HERMINIO CORTES SUPERINTENDENT HOUSE Ot Z12.31 ENCNTR SCREEN MAMMOGRAM FOR MALIGNANT NE 08/15/2017 FILIPE CUEVAS MD Ot M41.9 SCOLIOSIS, UNSPECIFIED 08/15/2017 FILIPE CUEVAS MD Ot M48.061 SPINAL STENOSIS, LUMBAR REGION WITHOUT N 08/18/2017 Ot V76.12 OTH SCREEN MAMMO- MALIGN NEOPLASM OF [place]ENZA 08/18/2017 HERMINIO CORTES SUPERINTENDENT HOUSE Ot Z12.31 ENCNTR SCREEN MAMMOGRAM FOR MALIGNANT NE 09/11/2017 HERMINIO CORTES Ot Z12.31 ENCNTR SCREEN MAMMOGRAM FOR MALIGNANT NE 04/30/2018 NICK HARRISON FACC, ALI FACP CCDS Ot 786.59 CHEST PAIN NEC 04/30/2018 FILIPE CUEVAS MD Ot 493.90 ASTHMA, UNSPECIFIED 04/30/2018 FILIPE CUEVAS MD Ot 496 CHR AIRWAY OBSTRUCT NEC 04/30/2018 FILIPE CUEVAS MD Ot 786.2 COUGH 04/30/2018 REBEKAH LARA 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 Ot V76.12 OTH SCREEN MAMMO-MALIGN NEOPLASM OF LORENZA 04/30/2018 NICK HARRISON FACC, ALI FACP CCDS Ot 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 04/30/2018 NICK HARRISON FACC, ALI FACP CCDS Ot J43.8 OTHER EMPHYSEMA 04/30/2018 NICK HARRISON FACC, ALI FACP CCDS Ot R06.02 SHORTNESS OF BREATH 04/30/2018 NICK HARRISON FACC, ALI FACP CCDS Ot J43.8 OTHER EMPHYSEMA 04/30/2018 NICK HARRISON FACC, ALI FACP CCDS Ot R26.89 OTHER ABNORMALITIES OF GAIT AND MOBILITY 04/30/2018 FILIPE CUEVAS MD Ot M41.9 SCOLIOSIS, UNSPECIFIED 04/30/2018 FILIPE CUEVAS MD Ot M48.061 SPINAL STENOSIS, LUMBAR REGION WITHOUT N 04/30/2018 HERMINIO CORTES SUPERINTENDENT HOUSE Ot Z12.31 ENCNTR SCREEN MAMMOGRAM FOR MALIGNANT [...] AGE-RELATED OSTEOPOROSIS W/O CURRENT PAT 06/26/2018 NICK GRESHAMC, ALI FACP CCDS Ot 786.59 CHEST PAIN NEC 06/26/2018 FILIPE CUEVAS MD Ot 493.90 ASTHMA, UNSPECIFIED 06/26/2018 FILIPE CUEVAS MD Ot 496 CHR AIRWAY OBSTRUCT NEC 06/26/2018 FILIPE CUEVAS MD Ot 786.2 COUGH 06/26/2018 REBEKAH LARA 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 Ot V76.12 OTH SCREEN MAMMO-MALIGN NEOPLASM OF LORENZA 06/26/2018 NICK HARRISON FACC, ALI FACP CCDS Ot 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 06/26/2018 NICK HARRISON FACC, ALI FACP CCDS Ot J43.8 OTHER EMPHYSEMA 06/26/2018 NICK HARRISON FACC, ALI FACP CCDS Ot R06.02 SHORTNESS OF BREATH 06/26/2018 NICK HARRISON FACC, ALI FACP CCDS Ot J43.8 OTHER EMPHYSEMA 06/26/2018 NICK HARRISON FACC, ALI FACP CCDS Ot R26.89 OTHER ABNORMALITIES OF GAIT AND MOBILITY 06/26/2018 FILIPE CUEVAS MD Ot M41.9 SCOLIOSIS, UNSPECIFIED 06/26/2018 FILIPE CUEVAS MD Ot M48.061 SPINAL STENOSIS, LUMBAR REGION WITHOUT N 06/26/2018 HERMINIO CORTES Ot Z12.31 ENCNTR SCREEN MAMMOGRAM FOR MALIGNANT NE 06/26/2018 MEHUL MIGUEL MD Ot M54.2 CERVICALGIA 06/26/2018 MEHUL MIGUEL MD Ot M54.6 PAIN IN THORACIC SPINE 06/26/2018 MEHUL MIGUEL MD Ot Z53.8 PROCEDURE AND TREATMENT NOT CARRIED OUT 06/26/2018 LILI ROACH Ot M81.0 AGE-RELATED OSTEOPOROSIS W/O CURRENT PAT 06/27/2018 FILIPE CUEVAS MD Ot R94.6 ABNORMAL RESULTS OF THYROID FUNCTION PRINCESS 07/02/2018 FILIPE CUEVAS MD Ot R94.6 ABNORMAL RESULTS OF THYROID FUNCTION PRINCESS 08/13/2018 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 Ot E78.5 HYPERLIPIDEMIA, UNSPECIFIED 08/13/2018 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 Ot G47.39 OTHER SLEEP APNEA 08/13/2018 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 Ot I10 ESSENTIAL (PRIMARY) HYPERTENSION 08/13/2018 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 Ot M79.89 OTHER SPECIFIED SOFT TISSUE DISORDERS 11/02/2018 ROSLYN HUNTER MD Ot B02.9 ZOSTER WITHOUT COMPLICATIONS 11/02/2018 ELSA HARRISON, ROSLYN Prasad Ot G51.0 DUNN'S PALSY 11/02/2018 ELSA HARRISON, ROSLYN Prasad Ot I10 ESSENTIAL (PRIMARY) HYPERTENSION 11/02/2018 ELSA HARRISON, ROSLYN Prasad Ot J44.9 CHRONIC OBSTRUCTIVE PULMONARY DISEASE, U 11/02/2018 ELSA HARRISON, ROSLYN Prasad Ot R29.810 FACIAL WEAKNESS 11/02/2018 ROSLYN HUNTER MD Ot Z79.51 CUSTOMER SUPPORT EXECUTIVE (CURRENT) USE OF INHALED STERO 11/02/2018 ROSLYN HUNTER MD Ot Z79.82 CUSTOMER SUPPORT EXECUTIVE (CURRENT) USE OF ASPIRIN 11/02/2018 ROSLYN HUNTER MD Ot Z88.0 ALLERGY STATUS TO PENICILLIN 11/02/2018 ROSLYN HUNTER MD Ot Z88.2 ALLERGY STATUS TO SULFONAMIDES STATUS 11/02/2018 ROSLYN HUNTER MD Ot Z88.8 ALLERGY STATUS TO OTH DRUG/MEDS/BIOL SUB 11/02/2018 ROSLYN HUNTER MD Ot Z90.710 ACQUIRED ABSENCE OF BOTH CERVIX AND UTER 11/03/2018 ELSA HARRISON, ROSLYN Prasad Ot B02.9 ZOSTER WITHOUT COMPLICATIONS 11/03/2018 ELSA HARRISON, ROSLYN Prasad Ot G51.0 DUNN'S PALSY 11/03/2018 ELSA HARRISON, ROSLYN Prasad Ot I10 ESSENTIAL (PRIMARY) HYPERTENSION 11/03/2018 ELSA HARRISON, ROSLYN Prasad Ot J44.9 CHRONIC OBSTRUCTIVE PULMONARY DISEASE, U 11/03/2018 ELSA HARRISON, ROSLYN Prasad Ot R20.0 ANESTHESIA OF SKIN 11/03/2018 ROSLYN HUNTER MD Ot Z79.51 CUSTOMER SUPPORT EXECUTIVE (CURRENT) USE OF INHALED STERO 11/03/2018 ROSLYN HUNTER MD Ot Z79.82 SENIOR LIVING (CURRENT) USE OF ASPIRIN 11/03/2018 ROSLYN HUNTER MD Ot Z87.448 PERSONAL HISTORY OF OTHER DISEASES OF UR 11/03/2018 ROSLYN HUNTER MD Ot Z88.0 ALLERGY STATUS TO PENICILLIN 11/03/2018 ROSLYN HUNTER MD Ot Z88.2 ALLERGY STATUS TO SULFONAMIDES STATUS 11/03/2018 ELSA HARRISON, ROSLYN Prasad Ot Z88.8 ALLERGY STATUS TO OTH DRUG/MEDS/BIOL SUB 11/03/2018 ELSA HARRISON, ROSLYN Prasad Ot Z90.710 ACQUIRED ABSENCE OF BOTH CERVIX AND UTER 11/03/2018 ELSA HARRISON, ROSLYN Prasad Ot Z91.14 PATIENT'S OTHER NONCOMPLIANCE WITH MEDIC 11/03/2018 ELSA HARRISON, ROSLYN Prasad Ot Z98.890 OTHER SPECIFIED POSTPROCEDURAL STATES 11/05/2018 ELSA HARRISON, ROSLYN Prasad Ot B02.9 ZOSTER WITHOUT COMPLICATIONS 11/05/2018 ELSA HARRISON, ROSLYN Prasad Ot G51.0 DUNN'S PALSY 11/05/2018 ELSA HARRISON, ROSLYN Prasad Ot I10 ESSENTIAL (PRIMARY) HYPERTENSION 11/05/2018 ELSA HARRISON, ROSLYN Prasad Ot J44.9 CHRONIC OBSTRUCTIVE PULMONARY DISEASE, U 11/05/2018 ROSLYN HUNTER MD Ot R29.810 FACIAL WEAKNESS 11/05/2018 ROSLYN HUNTER MD Ot Z79.51 CUSTOMER SUPPORT EXECUTIVE (CURRENT) USE OF INHALED STERO 11/05/2018 ELSA HARRISON, ROSLYN Prasad Ot Z79.82 SENIOR LIVING (CURRENT) USE OF ASPIRIN 11/05/2018 ROSLYN HUNTER MD Ot Z88.0 ALLERGY STATUS TO PENICILLIN 11/05/2018 [...] G51.0 DUNN'S PALSY 11/06/2018 ELSA HARRISON, ROSLYN Prasad Ot I10 ESSENTIAL (PRIMARY) HYPERTENSION 11/06/2018 ELSA HARRISON, ROSLYN Prasad Ot J44.9 CHRONIC OBSTRUCTIVE PULMONARY DISEASE, U 11/06/2018 ROSLYN HUNTER MD Ot R20.0 ANESTHESIA OF SKIN 11/06/2018 ROSLYN HUNTER MD Ot Z79.51 SENIOR LIVING (CURRENT) USE OF INHALED STERO 11/06/2018 ROSLYN HUNTER MD Ot Z79.82 SENIOR LIVING (CURRENT) USE OF ASPIRIN 11/06/2018 ELSA HARRISON ROSLYN Shanice Ot Z87.448 PERSONAL HISTORY OF OTHER DISEASES OF UR 11/06/2018 ROSLYN HUNTER MD Ot Z88.0 ALLERGY STATUS TO PENICILLIN 11/06/2018 ELSA HARRISON ROSLYN Shanice Ot Z88.2 ALLERGY STATUS TO SULFONAMIDES STATUS 11/06/2018 ROSLYN HUNTER MD Ot Z88.8 ALLERGY STATUS TO OTH DRUG/MEDS/BIOL SUB 11/06/2018 ROSLYN HUNTER MD Ot Z90.710 ACQUIRED ABSENCE OF BOTH CERVIX AND UTER 11/06/2018 ROSLYN HUNTER MD Ot Z91.14 PATIENT'S OTHER NONCOMPLIANCE WITH MEDIC 11/06/2018 ROSLYN HUNTER MD Ot Z98.890 OTHER SPECIFIED POSTPROCEDURAL STATES 11/23/2018 LUCIA BEASLEY 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 Ot Z12.31 ENCNTR SCREEN MAMMOGRAM FOR MALIGNANT NE 11/30/2018 FILIPE CUEVAS MD Ot 496 CHR AIRWAY OBSTRUCT NEC 11/30/2018 FILIPE CUEVAS MD Ot 786.2 COUGH 11/30/2018 REBEKAH LARA 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 Ot V76.12 OT SCREEN MAMMO-MALIGN NEOPLASM OF [place]ENZA 11/30/2018 NICK HARRISON FACC, ALI FACP CCDS Ot 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 11/30/2018 NICK HARRISON FACC, ALI FACP CCDS Ot J43.8 OTHER EMPHYSEMA 11/30/2018 NICK HARRISON FACC, ALI FACP CCDS Ot R06.02 SHORTNESS OF BREATH 11/30/2018 NICK HARRISON FACC, ALI FACP CCDS Ot J43.8 OTHER EMPHYSEMA 11/30/2018 NICK HARRISON FACC, ALI FACP CCDS Ot R26.89 OTHER ABNORMALITIES OF GAIT AND MOBILITY 11/30/2018 FILIPE CUEVAS MD Ot M41.9 SCOLIOSIS, UNSPECIFIED 11/30/2018 FILIPE CUEVAS MD Ot M48.061 SPINAL STENOSIS, LUMBAR REGION WITHOUT N 11/30/2018 HERMINIO CORTES SUPERINTENDENT HOUSE Ot Z12.31 ENCNTR SCREEN MAMMOGRAM FOR MALIGNANT NE 11/30/2018 MEHUL MIGUEL MD Ot M54.2 CERVICALGIA 11/30/2018 MYRIAM HARRISON, MEHUL Toure Ot M54.6 PAIN IN THORACIC SPINE 11/30/2018 MEHUL MIGUEL MD Ot Z53.8 PROCEDURE AND TREATMENT NOT CARRIED OUT 11/30/2018 DESTINY DAWN, LIIL Stevens Ot M81.0 AGE-RELATED OSTEOPOROSIS W/O CURRENT PAT 11/30/2018 FAITH HARRISON, FILIPE Fink Ot R94.6 ABNORMAL RESULTS OF THYROID FUNCTION PRINCESS 11/30/2018 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 Ot E78.5 HYPERLIPIDEMIA, UNSPECIFIED 11/30/2018 BAIMA BALDEMAR L SUPERINTENDENT HOUSE Ot G47.39 OTHER SLEEP APNEA 11/30/2018 BAIMABALDEMAR L SUPERINTENDENT HOUSE Ot I10 ESSENTIAL (PRIMARY) HYPERTENSION 11/30/2018 BAIBALDEMAR PIERCE SUPERINTENDENT HOUSE Ot M79.89 OTHER SPECIFIED SOFT TISSUE DISORDERS 11/30/2018 LUCIA BEASLEY APRN Ot Z12.31 ENCNTR SCREEN MAMMOGRAM FOR MALIGNANT NE 11/30/2018 HITESH LY MD Ot G89.29 OTHER CHRONIC PAIN 11/30/2018 HITESH LY MD Ot I10 ESSENTIAL (PRIMARY) HYPERTENSION 11/30/2018 HITESH LY MD Ot J44.9 CHRONIC OBSTRUCTIVE PULMONARY DISEASE, U 11/30/2018 HITESH LY MD Ot M54.41 LUMBAGO WITH SCIATICA, RIGHT SIDE 11/30/2018 HITESH LY MD Ot R42 DIZZINESS AND GIDDINESS 11/30/2018 HITESH LY MD Ot T40.4X5A ADVERSE EFFECT OF OTHER SYNTHETIC NARCOT 11/30/2018 HITESH LY MD Ot T42.8X5A ADVERSE EFFECT OF ANTIPARKNS DRUG/CENTR 11/30/2018 HITESH LY MD Ot W19.XXXA UNSPECIFIED FALL, INITIAL ENCOUNTER 11/30/2018 HITESH LY MD Ot Z79.82 CUSTOMER SUPPORT EXECUTIVE (CURRENT) USE OF ASPIRIN 11/30/2018 HITESH LY MD Ot Z88.0 ALLERGY STATUS TO PENICILLIN 11/30/2018 HITESH LY MD Ot Z88.2 ALLERGY STATUS TO SULFONAMIDES STATUS 11/30/2018 HITESH LY MD Ot Z90.710 ACQUIRED ABSENCE OF BOTH CERVIX AND UTER 12/02/2018 RAMOS, LUCIA M 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 Ot Z12.31 ENCNTR SCREEN MAMMOGRAM FOR MALIGNANT NE 12/03/2018 HITESH LY MD J Ot G89.29 OTHER CHRONIC PAIN 12/03/2018 HITESH LY MD Ot I10 ESSENTIAL (PRIMARY) HYPERTENSION 12/03/2018 HITESH LY MD Ot J44.9 CHRONIC OBSTRUCTIVE PULMONARY DISEASE, U 12/03/2018 HITESH LY MD Ot M54.41 LUMBAGO WITH SCIATICA, RIGHT SIDE 12/03/2018 HITESH LY MD Ot R42 DIZZINESS AND GIDDINESS 12/03/2018 HITESH LY MD Ot T40.4X5A ADVERSE EFFECT OF OTHER SYNTHETIC NARCOT 12/03/2018 HITESH LY MD Ot T42.8X5A ADVERSE EFFECT OF ANTIPARKNS DRUG/CENTR 12/03/2018 HITESH LY MD Ot W19.XXXA UNSPECIFIED FALL, INITIAL ENCOUNTER 12/03/2018 HITESH LY MD Ot Z79.82 SENIOR LIVING (CURRENT) USE OF ASPIRIN 12/03/2018 HITESH LY MD Ot Z88.0 ALLERGY STATUS TO PENICILLIN 12/03/2018 HITESH LY MD Ot Z88.2 ALLERGY STATUS TO SULFONAMIDES STATUS 12/03/2018 HITESH LY MD Ot Z90.710 ACQUIRED ABSENCE OF BOTH CERVIX AND UTER 12/18/2018 LUCIA BEASLEY 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 Ot Z12.31 ENCNTR SCREEN MAMMOGRAM FOR MALIGNANT NE 04/10/2019 FILIPE CUEVAS MD Ot 496 CHR AIRWAY OBSTRUCT NEC 04/10/2019 FILIPE CUEVAS MD Ot 786.2 COUGH 04/10/2019 REBEKAH LARA 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 Ot V76.12 OT SCREEN MAMMO-MALIGN NEOPLASM OF LORENZA 04/10/2019 NICK HARRISON FACC, ALI FACP CCDS Ot 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 04/10/2019 NICK HARRISON FACC, ALI FACP CCDS Ot J43.8 OTHER EMPHYSEMA 04/10/2019 NICK HARRISON FACC, ALI FACP CCDS Ot R06.02 SHORTNESS OF BREATH 04/10/2019 NICK HARRISON FACC, ALI FACP CCDS Ot J43.8 OTHER EMPHYSEMA 04/10/2019 NICK HARRISON FACC, ALI FACP CCDS Ot R26.89 OTHER ABNORMALITIES OF GAIT AND MOBILITY 04/10/2019 FILIPE CUEVAS MD Ot M41.9 SCOLIOSIS, UNSPECIFIED 04/10/2019 FILIPE CUEVAS MD Ot M48.061 SPINAL STENOSIS, LUMBAR REGION WITHOUT N 04/10/2019 HERMINIO CORTES Ot Z12.31 ENCNTR SCREEN MAMMOGRAM FOR MALIGNANT NE 04/10/2019 MEHUL MIGUEL MD Ot M54.2 CERVICALGIA 04/10/2019 MEHUL MIGUEL MD Ot M54.6 PAIN IN THORACIC SPINE 04/10/2019 MEHUL MIGUEL MD Ot Z53.8 PROCEDURE AND TREATMENT NOT CARRIED OUT 04/10/2019 DESTINY DAWN, LILI Stevens Ot M81.0 AGE-RELATED OSTEOPOROSIS W/O CURRENT PAT 04/10/2019 FILIPE CUEVAS MD Ot R94.6 ABNORMAL RESULTS OF THYROID FUNCTION PRINCESS 04/10/2019 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 Ot E78.5 HYPERLIPIDEMIA, UNSPECIFIED 04/10/2019 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 Ot G47.39 OTHER SLEEP APNEA 04/10/2019 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 Ot I10 ESSENTIAL (PRIMARY) HYPERTENSION 04/10/2019 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 Ot M79.89 OTHER SPECIFIED SOFT TISSUE DISORDERS 04/10/2019 LUCIA BEASLEY 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 Ot Z12.31 ENCNTR SCREEN MAMMOGRAM FOR MALIGNANT NE 04/11/2019 FILIPE CUEVAS MD Ot 496 CHR AIRWAY OBSTRUCT NEC 04/11/2019 FILIPE CUEVAS MD Ot 786.2 COUGH 04/11/2019 MEHUL MIGUEL MD Ot Z01.818 ENCOUNTER FOR OTHER PREPROCEDURAL EXAMIN 04/15/2019 FILIPE CUEVAS MD Ot 496 CHR AIRWAY OBSTRUCT NEC 04/15/2019 FILIPE CUEVAS MD Ot 786.2 COUGH 04/15/2019 REBEKAH LARA 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 Ot V76.12 OTH SCREEN MAMMO-MALIGN NEOPLASM OF [place] 04/15/2019 NICK HARRISON FACC, ALI FACP CCDS Ot 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 04/15/2019 NICK HARRISON FACC, ALI FACP CCDS Ot J43.8 OTHER EMPHYSEMA 04/15/2019 NICK HARRISON [facility], ALI FACP CCDS Ot R06.02 SHORTNESS OF BREATH 04/15/2019 NICK HARRISON [facility], ALI FACP CCDS Ot J43.8 OTHER EMPHYSEMA 04/15/2019 NICK HARRISON [facility], ALI FACP CCDS Ot R26.89 OTHER ABNORMALITIES OF GAIT AND MOBILITY 04/15/2019 FILIPE CUEVAS MD Ot M41.9 SCOLIOSIS, UNSPECIFIED 04/15/2019 FILIPE CUEVAS MD Ot M48.061 SPINAL STENOSIS, LUMBAR REGION WITHOUT N 04/15/2019 HERMINIO CORTES Ot Z12.31 ENCNTR SCREEN MAMMOGRAM FOR MALIGNANT NE 04/15/2019 MEHUL MIGUEL MD Ot M54.2 CERVICALGIA 04/15/2019 MEHUL MIGUEL MD Ot M54.6 PAIN IN THORACIC SPINE 04/15/2019 MEHUL MIGUEL MD Ot Z53.8 PROCEDURE AND TREATMENT NOT CARRIED OUT 04/15/2019 LILI ROACH Ot M81.0 AGE-RELATED OSTEOPOROSIS W/O CURRENT PAT 04/15/2019 FILIPE CUEVAS MD Ot R94.6 ABNORMAL RESULTS OF THYROID FUNCTION PRINCESS 04/15/2019 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 Ot E78.5 HYPERLIPIDEMIA, UNSPECIFIED 04/15/2019 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 Ot G47.39 OTHER SLEEP APNEA 04/15/2019 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 Ot I10 ESSENTIAL (PRIMARY) HYPERTENSION 04/15/2019 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 Ot M79.89 OTHER SPECIFIED SOFT TISSUE DISORDERS 04/15/2019 LUCIA BEASLEY APRN Ot Z12.31 ENCNTR SCREEN MAMMOGRAM FOR MALIGNANT NE 04/15/2019 FILIPE CUEVAS MD Ot 496 CHR AIRWAY OBSTRUCT NEC 04/15/2019 FILIPE CUEVAS MD Ot 786.2 COUGH Procedures Code Description Performed By Performed On [...] Automated erythrocyte mean corpuscular hemoglobin concentration measurement (mass/volume) 34 g/dL 32-36 Automated erythrocyte distribution width ratio 12.2 % 10.0- 14.5 Automated blood platelet count (count/volume) 398 10*3/uL [...] Blood monocytes automated count (number/volume) 1.0 10*3 0.0- 1.0 Automated eosinophil count 0.3 10*3/uL 0.0-0.3 Automated [...] Serum or plasma aspartate aminotransferase measurement (enzymatic activity/volume) 27 U/L 5-34 Serum or plasma alanine aminotransferase measurement (enzymatic activity/volume) 23 U/L 0-55 Serum or plasma protein [...] measurement in platelet poor plasma (mass/volume) - 11/02/18 07:45 Fibrin D-dimer FEU measurement in platelet poor plasma (mass/volume) 0.67 ug/mL 0.00-0.49 Serum or plasma troponin i.cardiac measurement (mass/volume) - 11/02/18 07:45 Serum or plasma troponin i.cardiac measurement (mass/volume) < ng/mL <0.028 Capillary blood glucose measurement by glucometer (mass/volume) - 11/02/18 07:56 Capillary blood glucose measurement by glucometer (mass/volume) 106 mg/dL 70-110 Complete urinalysis with reflex to culture - 11/02/18 08:50 Urine color determination YELLOW NRG Urine clarity determination CLEAR NRG Urine pH measurement by test strip 7 5-9 Specific gravity of urine by test strip 1.010 1.016-1.022 Urine protein assay by test strip, semi-quantitative [...] sediment leukocyte count by microscopy (number/high power field) RARE NRG Bacteria detection in urine sediment by light microscopy NEGATIVE NRG Squamous epithelial cells detection in urine sediment by light microscopy 0-2 NRG Crystals detection in urine sediment by light microscopy NONE NRG Casts detection in urine sediment by light microscopy NONE NRG Mucus detection in urine sediment by light microscopy NEGATIVE NRG Complete urinalysis with reflex to culture NO NRG Capillary blood glucose measurement by glucometer (mass/volume) - 11/30/18 19:21 Capillary blood glucose measurement by glucometer (mass/volume) 162 mg/dL 70-110 Complete blood count (CBC) with automated white blood cell (WBC) differential - 11/30/18 19:24 Blood leukocytes automated count (number/volume) 5.9 10*3/uL 4.3-11.0 Blood erythrocytes automated count (number/volume) 4.35 10*6/uL 4.35-5.85 Venous blood hemoglobin measurement (mass/volume) 14.7 g/dL 11.5-16.0 Blood hematocrit (volume fraction) 41 % 35-52 Automated erythrocyte mean corpuscular volume 95 [foz_us] 80-99 Automated erythrocyte mean corpuscular hemoglobin (mass per erythrocyte) 34 pg 25-34 Automated erythrocyte mean corpuscular hemoglobin concentration measurement (mass/volume) 36 g/dL 32-36 Automated erythrocyte distribution width ratio 12.9 % 10.0- 14.5 Automated blood platelet count (count/volume) 320 10*3/uL 130-400 Automated blood platelet mean volume measurement 9.3 [foz_us] 7.4-10.4 Automated blood neutrophils/100 leukocytes 78 % 42-75 Automated blood lymphocytes/100 leukocytes 17 % 12-44 Blood monocytes/100 leukocytes 5 % 0-12 Automated blood eosinophils/100 leukocytes 0 % 0-10 Automated blood basophils/100 leukocytes 0 % 0-10 Blood neutrophils automated count (number/volume) 4.6 10*3 1.8-7.8 Blood lymphocytes automated count (number/volume) 1.0 10*3 1.0-4.0 Blood monocytes automated count (number/volume) 0.3 10*3 0.0- 1.0 Automated eosinophil count 0.0 10*3/uL 0.0-0.3 Automated blood basophil count (count/volume) 0.0 10*3/uL 0.0-0.1 Blood lactic acid measurement (moles/volume) - 11/30/18 19:24 Blood lactic acid measurement (moles/volume) 1.75 mmol/L 0.50- 2.00 Comprehensive metabolic panel - 11/30/18 19:24 Serum or plasma sodium measurement (moles/volume) 141 mmol/L 135-145 Serum or plasma potassium measurement (moles/volume) 3.6 mmol/L 3.6-5.0 Serum or plasma chloride measurement (moles/volume) 104 mmol/L 98-107 Carbon dioxide 24 mmol/L 21-32 Serum or plasma anion gap determination (moles/volume) 13 mmol/L 5-14 Serum or plasma urea nitrogen measurement (mass/volume) 10 mg/dL 7-18 Serum or plasma creatinine measurement (mass/volume) 0.79 mg/dL 0.60-1.30 Serum or plasma urea nitrogen/creatinine mass ratio 13 NRG Serum or plasma creatinine measurement with calculation of estimated glomerular filtration rate > NRG Serum or plasma glucose measurement (mass/volume) 148 mg/dL 70-105 Serum or plasma calcium measurement (mass/volume) 10.4 mg/dL 8.5-10.1 Serum or plasma total bilirubin measurement (mass/volume) 0.4 mg/dL 0.1-1.0 Serum or plasma alkaline phosphatase measurement (enzymatic activity/volume) 105 U/L 40-136 Serum or plasma aspartate aminotransferase measurement (enzymatic activity/volume) 35 U/L 5-34 Serum or plasma alanine aminotransferase measurement (enzymatic activity/volume) 35 U/L 0-55 Serum or plasma protein measurement (mass/volume) 7.8 g/dL 6.4-8.2 Serum or plasma albumin measurement (mass/volume) 4.6 g/dL 3.2-4.5 PT panel in platelet poor plasma by coagulation assay - 11/30/18 19:24 Prothrombin time (PT) in platelet poor plasma by coagulation assay 12.9 s 12.2-14.7 INR in platelet poor plasma or blood by coagulation assay 1.0 0.8-1.4 Activated partial thromboplastin time (aPTT) in platelet poor plasma bycoagulation assay - 11/30/18 19:24 Activated partial thromboplastin time (aPTT) in platelet poor plasma bycoagulation assay 36 s 24-35 Serum or plasma troponin i.cardiac measurement (mass/volume) - 11/30/18 19:24 Serum or plasma troponin i.cardiac measurement (mass/volume) < ng/mL <0.028 Bacterial blood culture - 11/30/18 19:24 Bacterial blood culture NG NRG Bacterial blood culture - 11/30/18 19:35 Bacterial blood culture NG NRG Complete urinalysis with reflex to culture - 11/30/18 19:48 Urine color determination YELLOW NRG Urine clarity determination CLEAR NRG Urine pH measurement by test strip 7 5-9 Specific gravity of urine by test strip 1.010 1.016-1.022 Urine protein assay by test strip, semi-quantitative 1+ NEGATIVE Urine glucose detection by automated test strip NEGATIVE NEGATIVE Erythrocytes detection in urine sediment by light microscopy 2+ NEGATIVE Urine ketones detection by automated test strip 3+ NEGATIVE Urine nitrite detection by test strip NEGATIVE NEGATIVE Urine total bilirubin detection by test strip NEGATIVE NEGATIVE Urine urobilinogen measurement by automated test strip (mass/volume) NORMAL NORMAL Urine leukocyte esterase detection by dipstick NEGATIVE NEGATIVE Automated urine sediment erythrocyte count by microscopy (number/high power field) [HPF] NRG Automated urine sediment leukocyte count by microscopy (number/high power field) RARE NRG Bacteria detection in urine sediment by light microscopy NEGATIVE NRG Squamous epithelial cells detection in urine sediment by light microscopy 0-2 NRG Crystals detection in urine sediment by light microscopy NONE NRG Casts detection in urine sediment by light microscopy NONE NRG Mucus detection in urine sediment by light microscopy NEGATIVE NRG Complete urinalysis with reflex to culture NO NRG Influenza virus A and B antigen detection - 11/30/18 19:48 FLU RESULT NEGATIVE FOR INFLUENZA A AND B ANTIGENS BY IA NRG Bacterial urine culture - 11/30/18 19:48 Bacterial urine culture 3 OR MORE NRG COLONY COUNT 20,000 CFU/ML NRG FTX;REPORTABLE (GRAM POSITIVE) SUGGESTING PROBABLE NRG FREE TEXT ENTRY 2 COLLECTION CONTAMINATION WITH NRG FREE TEXT ENTRY 3 SKIN KATARZYNA NRG Serum or plasma troponin i.cardiac measurement (mass/volume) - 11/30/18 21:29 Serum or plasma troponin i.cardiac measurement (mass/volume) < ng/mL <0.028 Complete blood count (CBC) with automated white blood cell (WBC) differential - 04/15/19 20:55 Blood leukocytes automated count (number/volume) 17.0 10*3/uL 4.3-11.0 Blood erythrocytes automated count (number/volume) 4.32 10*6/uL 4.35-5.85 Venous blood hemoglobin measurement (mass/volume) 13.7 g/dL 11.5-16.0 Blood hematocrit (volume fraction) 39 % 35-52 Automated erythrocyte mean corpuscular volume 91 [foz_us] 80-99 Automated erythrocyte mean corpuscular hemoglobin (mass per erythrocyte) 32 pg 25-34 Automated erythrocyte mean corpuscular hemoglobin concentration measurement (mass/volume) 35 g/dL 32-36 Automated erythrocyte distribution width ratio 12.7 % 10.0- 14.5 Automated blood platelet count (count/volume) 419 10*3/uL 130-400 Automated blood platelet mean volume measurement 9.3 [foz_us] 7.4-10.4 Automated blood neutrophils/100 leukocytes 77 % 42-75 Automated blood lymphocytes/100 leukocytes 13 % 12-44 Blood monocytes/100 leukocytes 10 % 0-12 Automated blood eosinophils/100 leukocytes 0 % 0-10 Automated blood basophils/100 leukocytes 0 % 0-10 Blood neutrophils automated count (number/volume) 13.2 10*3 1.8-7.8 Blood lymphocytes automated count (number/volume) 2.2 10*3 1.0-4.0 Blood monocytes automated count (number/volume) 1.6 10*3 0.0- 1.0 Automated eosinophil count 0.0 10*3/uL 0.0-0.3 Automated blood basophil count (count/volume) 0.0 10*3/uL 0.0-0.1 Manual absolute plasma cell count - 04/15/19 20:55 Blood monocytes/100 leukocytes 6 % NRG Manual blood segmented neutrophils/100 leukocytes 80 % NRG Blood band neutrophils/100 leukocytes 3 % NRG Manual blood lymphocytes/100 leukocytes 9 % NRG Manual eosinophils/100 leukocytes in nose 0 % NRG Manual blood basophils/100 leukocytes 0 % NRG Blood lymphocytes variant/100 leukocytes 2 % NR Blood rouleaux detection by light microscopy [facility] Comprehensive metabolic panel - 04/15/19 20:55 Serum or plasma sodium measurement (moles/volume) 135 mmol/L 135-145 Serum or plasma potassium measurement (moles/volume) 3.6 mmol/L 3.6-5.0 Serum or plasma chloride measurement (moles/volume) 100 mmol/L 98-107 Carbon dioxide 20 mmol/L 21-32 Serum or plasma anion gap determination (moles/volume) 15 mmol/L 5-14 Serum or plasma urea nitrogen measurement (mass/volume) 10 mg/dL 7-18 Serum or plasma creatinine measurement (mass/volume) 0.80 mg/dL 0.60-1.30 Serum or plasma urea nitrogen/creatinine mass ratio 13 NRG Serum or plasma creatinine measurement with calculation of estimated glomerular filtration rate > [facility] Serum or plasma glucose measurement (mass/volume) 108 mg/dL 70-105 Serum or plasma calcium measurement (mass/volume) 10.4 mg/dL 8.5-10.1 Serum or plasma total bilirubin measurement (mass/volume) 0.4 mg/dL 0.1-1.0 Serum or plasma alkaline phosphatase measurement (enzymatic activity/volume) 124 U/L 40-136 Serum or plasma aspartate aminotransferase measurement (enzymatic activity/volume) 26 U/L 5-34 Serum or plasma alanine aminotransferase measurement (enzymatic activity/volume) 20 U/L 0-55 Serum or plasma protein measurement (mass/volume) 7.7 g/dL 6.4-8.2 Serum or plasma albumin measurement (mass/volume) 4.5 g/dL 3.2-4.5 CALCIUM CORRECTED 10.0 mg/dL 8.5-10.1 Serum or plasma amylase measurement (enzymatic activity/volume) - 04/15/19 20:55 Serum or plasma amylase measurement (enzymatic activity/volume) 41 U/L 25-125 Lipase - 04/15/19 20:55 Lipase 43 U/L 8-78 Complete urinalysis with reflex to culture - 04/15/19 21:50 Urine color determination YELLOW NRG Urine clarity determination CLEAR NR Urine pH measurement by test strip 8 5-9 Specific gravity of urine by test strip 1.010 1.016-1.022 Urine protein assay by test strip, semi-quantitative 2+ NEGATIVE Urine glucose detection by automated test strip NEGATIVE NEGATIVE Erythrocytes detection in urine sediment by light microscopy 4+ NEGATIVE Urine ketones detection by automated test strip 1+ NEGATIVE Urine nitrite detection by test strip NEGATIVE NEGATIVE Urine total bilirubin detection by test strip NEGATIVE NEGATIVE Urine urobilinogen measurement by automated test strip (mass/volume) NORMAL NORMAL Urine leukocyte esterase detection by dipstick NEGATIVE NEGATIVE Automated urine sediment erythrocyte count by microscopy (number/high power field) [HPF] NRG Automated urine sediment leukocyte count by microscopy (number/high power field) RARE NRG Bacteria detection in urine sediment by light microscopy TRACE NRG Squamous epithelial cells detection in urine sediment by light microscopy 5-10 NRG Crystals detection in urine sediment by light microscopy NONE NRG Casts detection in urine sediment by light microscopy NONE NRG Mucus detection in urine sediment by light microscopy NEGATIVE NRG Complete urinalysis with reflex to culture NO NRG Encounters ACCT No. Visit Date/Time Discharge Status Pt. Type Provider Facility Loc./Unit Complaint [id number] 04/28/2015 09:02:01 ACT Document Registration [id number] 04/15/2019 06:01:00 04/15/2019 12:05:00 DIS Outpatient MEHUL MIGUEL MD [facility] SDC [place] [id number] 04/11/2019 05:33:00 04/11/2019 11:40:00 DIS Outpatient MEHUL MIGUEL MD [facility] PREOP [place] [id number] 11/30/2018 19:01:00 11/30/2018 22:18:00 DIS Emergency HITESH LY MD [facility] ER PASSED OUT/DIZZINESS [id number] 11/26/2018 08:31:00 11/26/2018 23:59:59 CLS Outpatient LUCIA BEASLEY APRN [facility] RAD SCREENING [id number] 11/03/2018 10:32:00 11/03/2018 11:08:00 DIS Emergency ROSLYN HUNTER MD [facility] ER FACIAL NUMBNESS AND DROOPING [id number] 11/02/2018 07:36:00 11/02/2018 23:59:59 CLS Emergency ROSLYN HUNTER MD [facility] ER FACIAL DROOPING/NUMBNESS [id number] 08/08/2018 11:18:00 08/08/2018 23:59:59 CLS Outpatient BALDEMAR MONAHAN [facility] RAD HTN [id number] 06/26/2018 12:14:00 06/26/2018 23:59:59 CLS Outpatient FILIPE CUEVAS MD [facility] CARD ELEVATED PARATHYROID HORMONE [id number] 05/10/2018 09:30:00 05/10/2018 23:59:59 CLS Outpatient LILI ROACH [facility] RAD OSTEOPOROSIS [id number] 04/30/2018 09:37:00 04/30/2018 23:59:59 CLS Outpatient MEHUL MIGUEL MD [facility] RAD CERVICAL, THORACIC PAIN [id number] 01/24/2018 16:45:00 01/24/2018 23:59:59 CLS Preadmit BAO CASTELLON APRN [facility] RT SOB,ASTHMA [id number] 08/18/2017 10:35:00 08/18/2017 23:59:59 CLS Outpatient HERMINIO CORTES [facility] RAD SCREENING [id number] 07/24/2017 09:08:00 07/24/2017 23:59:59 CLS Outpatient FILIPE CUEVAS MD [facility] RAD CHRONIC LOW BACK PAIN [id number] 12/22/2016 07:30:00 12/22/2016 23:59:59 CLS Outpatient BASSEM ROMERO MD, FACC, FACP CCDS [facility] CARD SOB,CLAUDICATION,COPD [id number] 12/20/2016 07:33:00 12/20/2016 23:59:59 CLS Outpatient BASSEM ROMERO MD, FACC, FACP CCDS [facility] CARD SOB,CLAUDICATION,COPD [id number] 04/01/2016 11:53:00 04/01/2016 12:59:00 DIS Emergency ALEX ALLEN 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 [facility] ER NOSE BLEED [id number] 03/15/2016 08:04:00 03/15/2016 10:37:00 DIS Emergency DARRELL ASCENCIO DO [facility] ER CHEST/DARLEEN SHOULDER PAIN [id number] 09/22/2015 15:03:00 09/22/2015 16:25:00 DIS Emergency TRINIDAD CARRASCO MD [facility] ER NOSE BLEED [id number] 04/28/2015 09:01:00 04/28/2015 23:59:59 CLS Outpatient REBEKAH LARA APRN [facility] RAD SCREENING [id number] 01/14/2015 00:13:00 01/14/2015 23:59:59 CLS Preadmit FILIPE CUEVAS MD [facility] LAB COUGH, COPD [id number] 10/20/2014 08:12:00 01/13/2015 00:01:00 DIS Outpatient FILIPE CUEVAS MD [facility] LAB COUGH, COPD [id number] 05/10/2013 09:59:00 05/23/2013 13:31:00 DIS Outpatient ALANNA LION MD [facility] REHAB LEFT SHOULDER PAIN [id number] 05/10/2013 21:15:00 05/11/2013 06:50:00 DIS Outpatient GUS SILVA [facility] SLEEP SNORING,IVETTE [id number] 04/03/2013 13:01:00 04/03/2013 23:59:59 CLS Outpatient FILIPE CUEVAS MD [facility] RT ASTHMA,DYSPNEA [id number] 03/18/2013 11:05:00 03/18/2013 23:59:59 CLS Outpatient NICK HARRISON FACC, BASSEM FACJavi CCDS [facility] CARD CHEST DISCOMFORT,HX MVP [id number] 04/15/2019 23:00:00 ACT Inpatient MEHUL MIGUEL MD [facility] ICU INTRACTABLE POST-OP;S/P LAMINECTOMY SPINAL CORD [id number] 05/09/2012 12:17:00 Document Registration [id number] 01/19/2011 21:33:00 Document Registration [id number] 12/23/2010 10:30:00 Document Registration [id number] 12/07/2010 14:19:00 Document Registration [id number] 10/14/2010 09:00:00 Document Registration [id number] 04/11/2010 08:16:00 Document Registration [id number] 08/18/2009 09:17:00 Document Registration [id number] 07/21/2009 08:57:00 Document Registration
--- NOTE | 2019-04-16 07:23 | Diagnostic Imaging Report ---
PROCEDURE: CT thoracic spine without contrast. TECHNIQUE: Multiple axial computerized tomography images were obtained from the base of the thoracic spine to the vertex without intravenous contrast. Auto Exposure Controls were utilized during the CT exam to meet ALARA standards for radiation dose reduction. INDICATION: Spinal cord stimulator placement. Nausea, pain, vomiting. COMPARISON: None FINDINGS: There appear to be 11 ribs total. A spinal cord stimulator is seen with the leads at the T7-8 level in the spinal canal. The leads enter the epidural space in the spinal canal at the T9-10 level. No soft tissue fluid collections are seen. There is mild soft tissue air from recent procedure. There is diffuse osteopenia. Vertebral body heights are generally preserved. There are flowing anterior osteophytes likely from diffuse idiopathic skeletal hyperostosis. Advanced degenerative changes are seen in the lower cervical spine. There is dependent atelectasis. IMPRESSION: 1. Spinal cord signal in the thoracic spine with no acute osseous abnormalities seen. There are multilevel degenerative changes present. Dictated by: Dictated on workstation # [id number]
--- NOTE | 2019-04-16 07:23 | Diagnostic Imaging Report ---
PROCEDURE: CT abdomen and pelvis without contrast. TECHNIQUE: Multiple contiguous axial images were obtained through the abdomen and pelvis without the use of intravenous contrast. Auto Exposure Controls were utilized during the CT exam to meet ALARA standards for radiation dose reduction. INDICATION: Pain, nausea and vomiting. Spinal cord stimulator placement. COMPARISON: None FINDINGS: The lung bases are clear. The heart is normal in size. There is no pericardial effusion. There is a hypodense lesion in the left liver measuring 1.7 cm, which has mild peripheral calcification. This appears well-circumscribed. No other hepatic lesions are seen. Cholecystectomy clips are noted. The spleen appears normal. The pancreas appears normal. The adrenal glands are normal. There are multiple calculi in the left kidney, the largest measuring up to 7 mm in size. No hydronephrosis is seen. The bowel loops are nondistended without obstruction. There is diverticulosis of the descending and sigmoid colon without diverticulitis seen. No free fluid or free air seen. There is no evidence of appendicitis. There are degenerative changes in the spine with no acute osseous abnormalities seen. Spinal cord stimulator is noted. IMPRESSION: 1. Nonobstructing calculi in the left kidney without hydronephrosis. 2. Low density circumscribed lesion in the liver likely represents a cyst. 3. Colonic diverticulosis without diverticulitis. Dictated by: Dictated on workstation # [id number]
[2019-04-16] MEDS ORDERED: BUP/EPI 0.5% 1:200,000 (SENSORCAINE) 30 ML VIAL ONE (14:33)
[2019-04-16] MEDS ORDERED: GENTAMICIN 40 MG/ML 2 ML INJ SDV ONE (14:33)
[2019-04-16] MEDS ORDERED: THROMBIN 5,000 UNIT (RECOTHROM) VIAL ONE (14:33)
[2019-04-16] MEDS ORDERED: VANCOMYCIN 1000 MG/VIAL ONE (14:33)
[2019-04-16] MEDS ORDERED: LIDOCAINE PF 2% 5 ML (XYLOCAINE) VIAL ONE (15:45)
[2019-04-16] MEDS ORDERED: MIDAZOLAM 2 MG/2 ML (VERSED) VIAL ONE (15:45)
[2019-04-16] MEDS ORDERED: fentaNYL INJECTION 100 MCG/2 ML AMP ONE (15:45)
[2019-04-16] MEDS ORDERED: proPOfol 200 MG/20 ML (DIPRIVAN) VIAL IV ONE (15:45)
[2019-04-16] MEDS ORDERED: SEVOFLURANE (ULTANE) 15 ML INHAL SOLN ONE ×6 (15:48→17:50)
[2019-04-16] MEDS ORDERED: ONDANSETRON 4 MG/2 ML (SDV) Z0FRAN ONE (15:48)
[2019-04-16] MEDS ORDERED: DEXAMETHASONE 10 MG/ML (DECADRON) 1 ML VIAL ONE (15:48)
--- NOTE | 2019-04-16 16:11 | NUR ---
Patient off floor at this time to surgery.
[2019-04-16] MEDS ORDERED: morphine INJ 10 MG/ML 1ML (SYR OR VIAL) IVP ONE (16:15)
[2019-04-16] MEDS ORDERED: MEPERIDINE (DEMEROL) INJ 50 MG/ML IVP ONE (16:15)
[2019-04-16] MEDS ORDERED: fentaNYL INJECTION 100 MCG/2 ML AMP IVP ONE (16:15)
--- NOTE | 2019-04-16 16:16 | History & Physicial ---
History of Present Illness History of Present Illness Reason for visit/HPI Had paddle lead, SCS placed yesterday, and still has significant abdominal pain. Admitted for pain control. Date of Admission Apr 15, 2019 at 23:00 Date Seen by a Provider: Apr 16, 2019 Time Seen by a Provider: 16:15 I consulted on this patient on 04/16/19 16:11 Attending Physician Mehul Mark MD Admitting Physician Deneen Rosenberg MD Consult Allergies and Home Medications Allergies Coded Allergies: Horse/Equine Containing Products (Verified Allergy, Severe, SWELLING, 04/15/19) clopidogrel bisulfate (Unverified Allergy, Severe, SEVERE BLEEDING, 04/15/19) tuberculin, purified protein deriva (Verified Allergy, Severe, POSTITIVE REACTION AND TOLD TO NEVER TAKE IT AGAIN, 04/15/19) clindamycin (Verified Allergy, Intermediate, DIARRHEA, 04/15/19) Penicillins (Verified Allergy, Mild, HIVES, 04/15/19) CAN TAKE KEFLEX Sulfa (Sulfonamide Antibiotics) (Verified Allergy, Mild, RASH, 04/15/19) Home Medications Acetaminophen 500 Mg Tablet, 1,000 MG PO TID, (Reported) Albuterol Sulfate 1 Puff Puff, 2 PUFF IH Q4H PRN for SHORTNESS OF BREATH, (Reported) 1 PUFF = 90 MCG Amlodipine Besylate 5 Mg Tablet, 2.5 MG PO BID, (Reported) Ascorbic Acid 500 Mg Tablet, 500 MG PO DAILY, (Reported) Aspirin 81 Mg Tab.chew, 81 MG PO DAILY, (Reported) Baclofen 20 Mg Tablet, 5 MG PO TID PRN for SPASMS, (Reported) Beta-Carotene 10,000 Unit Capsule, 10,000 UNIT PO DAILY, (Reported) Butalb/Acetaminophen/Caffeine 1 Each Tablet, 1 EACH PO Q6H PRN for HEADACHE, (Reported) Celecoxib 200 Mg Capsule, 200 MG PO DAILY, (Reported) Cholecalciferol (Vitamin D3) 2,000 Unit Tablet, 2,000 UNIT PO DAILY, (Reported) Cyanocobalamin (Vitamin B-12) 5,000 Mcg Tab.rapdis, 5,000 MCG PO DAILY, (Reported) Folic Acid 0.4 Mg Tablet, 0.4 MG PO DAILY, (Reported) Gabapentin 300 Mg Capsule, 300 MG PO TID, (Reported) Gemfibrozil 600 Mg Tablet, 600 MG PO BID, (Reported) L.acidoph & Paracasei,B.lactis 1 Each Capsule, 1 EACH PO DAILY, (Reported) Loratadine 10 Mg Tablet, 10 MG PO DAILY, (Reported) Melatonin/Pyridoxine HCl (B6) 1 Each Tablet, 1 EACH PO HS, (Reported) Montelukast Sodium 10 Mg Tablet, 10 MG PO DAILY, (Reported) Multivitamin 1 Each Capsule, PO DAILY, (Reported) Paroxetine HCl 20 Mg Tablet, 10 MG PO DAILY, (Reported) Pentazocine/Naloxone 50 Mg Tab, 50 MG PO Q4H PRN for PAIN-BREAKTHROUGH Prescribed by: MEHUL MARK on 04/15/19 0856 Potassium Gluconate 99 Mg Tablet, 99 MG PO DAILY, (Reported) Pyridoxine HCl 100 Mg Tablet, 100 MG PO DAILY, (Reported) Ranitidine HCl 150 Mg Tablet, 150 MG PO DAILY, (Reported) Valacyclovir HCl 1,000 Mg Tablet, 1,000 MG PO BID, (Reported) Vitamin E Acetate 400 Unit Capsule, 400 UNIT PO DAILY, (Reported) Zinc Amino Acid Chelate 50 Mg Tablet, 50 MG PO DAILY, (Reported) Patient Home Medication List Home Medication List Reviewed: Yes Past Jcyhvyc-Abivmm-Vzgkiw Hx Patient Social History Alcohol Use: Denies Use Recreational Drug Use: No Smoking Status: Never a Smoker 2nd Hand Smoke Exposure: No Recent Foreign Travel: No Contact w/other who traveled: No Recent Hopitalizations: No Recent Infectious Disease Expo: No Immunizations Up To Date Date of Pneumonia Vaccine: Jul 24, 2017 Date of Influenza Vaccine: Jul 23, 2018 Seasonal Allergies Seasonal Allergies: Yes Surgeries Yes Appendectomy, Gallbladder, Hysterectomy, Orthopedic Respiratory Yes (CHRONIC COUGH) Cardiovascular Yes (MITRAL VALVE PROLAPSE) Hypertension, Valvular Heart Disease Neurological Yes (DUNN'S PALSY) Headaches /Migraines, TIA Reproductive System : No Hx Reproductive Disorders: Yes (HX.FIBROIDS-HYSTERECTOMY) Sexually Transmitted Disease: No HIV/AIDS: No 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, 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 Genitourinary Yes (KIDNEY STONES NOTED ON CT SCAN--PT HAS NEVER PASSED ONE) Kidney Stones Gastrointestinal Yes (CARCINOID APPENDIX; S/P CHARLI) Gall Bladder Disease Musculoskeletal Yes Degenerate Disk Disease, Chronic Back Pain Endocrine History of Endocrine Disorders: No HEENT History of HEENT Disorders: Yes (READING GLASSES; NOSEBLEEDS) Loss of Vision: Denies Hearing Impairment: Denies Cancer No Psychosocial History of Psychiatric Problem: No Integumentary History of Skin or Integumenta: Yes (SHINGLES) Blood Transfusions History of Blood Disorders: No Adverse Reaction to a Blood Tr: No (N/A) Family Medical History Significant Family History: No Pertinent Family Hx Review of Systems Constitutional: weakness Respiratory: no symptoms reported Cardiovascular: no symptoms reported Gastrointestinal: abdominal pain, nausea Genitourinary: no symptoms reported Musculoskeletal: no symptoms reported Physical Exam Vital Signs Vital Signs - First Documented 04/15/19 04/16/19 20:45 00:15 Temp 99.4 Pulse 97 Resp 20 B/P (MAP) 145/79 (101) Pulse Ox 96 O2 Delivery Nasal Cannula O2 Flow Rate 2.00 Capillary Refill : Less Than 3 Seconds Height, Weight, BMI Height: 5'2.00" Weight: 175lbs. 3.0oz. 79.800314ie; 32.0 BMI Method:Stated General Appearance: Mild Distress Eyes: Bilateral Eye Normal Inspection HEENT: PERRL/EOMI, TMs Normal Neck: Full Range of Motion Respiratory: Chest Non Tender Cardiovascular: Regular Rate, Rhythm Gastrointestinal: Normal Bowel Sounds Back: No CVA Tenderness, No Vertebral Tenderness Extremity: Normal Capillary Refill, Normal Inspection Neurologic/Psychiatric: No Motor/Sensory Deficits Comments CT scan T spine, shows paddle lead in good midline position. Assessment/Plan Admission Diagnosis Thoracic Radiculopathy due to Paddle lead Will plan revision. Conversion to Slim leads. Admission Status: Observation Clinical Quality Measures DVT/VTE Risk/Contraindication: Risk Factor Score Per Nursin RFS Level Per Nursing on Admit: 4+=Very High MEHUL MARK MD Apr 16, 2019 16:16
[2019-04-16] MEDS ORDERED: ceFAZolin 2 GM/50 ML NS 50 ML ONE (16:24)
[2019-04-16] MEDS ORDERED: SUCCINYLCHOLINE INJ 100 MG/5 ML SYR ONE (17:20)
[2019-04-16] MEDS ORDERED: ROCURONIUM 10 MG/ML 5 ML SYRINGE IV ONE (17:21)
[2019-04-16] MEDS ORDERED: LACTATED RINGERS 1,000 ML IV PRN (17:24)
--- NOTE | 2019-04-16 18:02 | Progress Note-Post Operative ---
Post-Operative Progess Note Surgeon (s)/Wholesale Representative (s) Surgeon MEHUL MIGUEL MD Wholesale Representative: KRISTIAN Cotton Pre-Operative Diagnosis LUMBAGO, Thoracic Radiculopathy, painful hardware Post-Operative Diagnosis Same Procedure & Operative Findings Date of Procedure 04/16/19 Procedure Performed/Findings Revision Laminectomy and electrode placement for SCS Anesthesia Type GETA Estimated Blood Loss Estimated blood loss (mL): Minimal Specimens/Packing Specimens Removed None MEHUL MIGUEL MD Apr 16, 2019 18:02
--- NOTE | 2019-04-16 18:12 | Diagnostic Imaging Report ---
INDICATION: Fluoroscopy during spinal stimulator placement. FINDINGS: Fluoroscopy was provided in the OR during spinal stimulator placement. 11 seconds of fluoroscopy was utilized. Stimulator overlies the midthoracic spine. IMPRESSION: Fluoroscopy during spinal cord stimulator placement. Dictated by: Dictated on workstation # [id number]
[2019-04-16] MEDS ORDERED: PHENYLEPHRINE 100 MCG/ML 10 ML (ANESTHESIA) SYR ONE (18:25)
[2019-04-16] MEDS ORDERED: ONDANSETRON 4 MG/2 ML (SDV) Z0FRAN IV PRN (18:45)
[2019-04-16] MEDS ORDERED: CATHETER FLUSH 10 ML SYR IV PRN (19:00)
[2019-04-16] MEDS: amLODIPine 2.5MG (NORVASC) TAB PO SCH (20:59)
[2019-04-16] MEDS: GABAPENTIN 300 MG (NEURONTIN) CAP PO SCH (20:59)
--- NOTE | 2019-04-16 22:00 | NUR ---
REPORT GIVEN TO RACHEL HENDRICKSON. PT TRANSFERRED TO [phone] AT THIS TIME WITH BELONGINGS.
--- NOTE | 2019-04-16 22:42 | NUR ---
pt arrived to rm 419 via icu bed.. pt transfered to bed with assist x2. drg to back c/d/i kelle drain in place min amt of bloody drainage noted. iv site rac patent. pt c/o pain did instruct pt of next time pain med could be given.. pt voiced understanding
[2019-04-16] MEDS: ceFAZolin INJECTION 2,000 MG in WATER (STERILE) FOR INJECTION 10 ML IV SCH (22:55)
--- NOTE | 2019-04-17 02:44 | OPERATIVE REPORT ---
DATE OF SERVICE: 04/16/2019 PREOPERATIVE DIAGNOSES: Painful hardware, thoracic radiculopathy, abdominal pain, painful spinal cord stimulator. POSTOPERATIVE DIAGNOSES: Painful hardware, thoracic radiculopathy, abdominal pain, painful spinal cord stimulator as well as small epidural hematoma. PROCEDURES PERFORMED: Revision laminotomies with removal and replacement of spinal cord stimulating electrodes via laminectomy and removal and reconnection of impulse generating battery for spinal cord stimulator. DATE AND TIME OF SURGERY: Please see anesthesia record. IMPLANTS USED: [employer] 7 battery and Octrode leads. SURGEON: Mehul Mark M.D. MACHINE CLOTH TRIMMER: LÓPEZ Cotton. ROLE OF STORE CONSULTANT: Aid in retraction of the procedure, aid in implantation and instrumentation and wound closure. ANESTHESIA: General endotracheal. ESTIMATED BLOOD LOSS: Minimal. INTRAVENOUS FLUIDS: Please see anesthesia record. ANTIBIOTICS: Ancef. COMPLICATIONS: None. INDICATIONS FOR PROCEDURE: The patient is an 78-year-old female, who had a spinal cord stimulator via laminectomy, the paddle lead looks well placed on imaging, but shortly after going home she had significant abdominal pain that got worse throughout the day. She was encouraged to go to the Emergency Department. CT scan was obtained last night, which showed overall satisfactory position and not a whole lot of dorsal displacement of the lead and no clear sign of epidural hematoma. Her pain persisted despite steroids and pain control today and therefore it was elected to remove the lead expect the canal to make sure there was no clot and then either revise or change out her leads. DESCRIPTION OF PROCEDURE: The patient was taken to the preoperative holding area and brought back to the operative suite. After adequate induction of general anesthesia, preoperative antibiotics turned prone on the Lamonte table, careful padding to all extremities, sterilely prepped and draped the posterior thoracic and lumbar spine. Previous thoracic incision was opened. Dissection was carried down to the level of the laminotomy. There was no clot present in the laminotomy site. At this point, dissection of the left side of the spine was performed and a small laminotomy was created at T7-T8 and T8-T9 where the paddle lead was present. It was noted that based on the anatomy of the canal, the lead was sitting quite ventrally and there was a small bit of clot around the lead most significantly up at the tip of the lead. Epidural clot was removed. The canal was vacated of all clot, fully decompressed and was felt that replacing the lead was not warranted based on the anatomy of the canal. Therefore, two simple in line Octrode leads were placed into position. They were anchored in place, they were assured to be in a satisfactory position. They were anchored at the lamina level. Deep drain was placed. Fascia was closed and they are anchored again at the fascial level, strain relief loops were created. They were tunneled to the battery site, which the battery was removed and then replaced and reconnected and functioning well. Wounds were all irrigated, closed in layers. The patient was transferred to recovery room in stable condition, having tolerated the procedure well. Job ID: [id number] DocumentID: [id number] Dictated Date: 04/16/2019 18:06:23 Trauma Manager Date: 04/17/2019 02:43:56 Dictated By: MEHUL MARK MD
[2019-04-17] MEDS: morphine INJ 4 MG/ML 1 ML (VIAL/SYRINGE) IV PRN ×7 (02:51→21:50)
[2019-04-17] MEDS: DEXAMETHASONE 4 MG/ML SDV (DECADRON) IV SCH (02:52)
[2019-04-17] MEDS: fentaNYL INJECTION 100 MCG/2 ML AMP IV PRN (02:53)
[2019-04-17] MEDS: D5 1/2 NS 1000 ML IV SOLUTION 1,000 ML IV SCH ×3 (02:57→22:16)
[2019-04-17 04:28] VITALS: BP 128/64
[2019-04-17] MEDS ORDERED: ceFAZolin INJECTION 1,000 MG ONE (06:17)
[2019-04-17] MEDS: ONDANSETRON 4 MG/2 ML (SDV) Z0FRAN IV PRN (06:31)
[2019-04-17] MEDS: MULTIVIT W/MINERALS TAB (THERAGRAN M) PO SCH (06:42)
[2019-04-17] MEDS: ceFAZolin INJECTION 2,000 MG in WATER (STERILE) FOR INJECTION 10 ML IV SCH ×2 (06:43→15:57)
--- NOTE | 2019-04-17 07:16 | Progress Note (SOAP) ---
Subjective Date Seen by a Provider: Apr 17, 2019 Time Seen by a Provider: 07:13 Subjective/Events-last exam POD #1, s/p SCS paddle lead revision with evacuation of epidural hematoma VSS, Afebrile Patient states that her pain has improved Review of Systems General: No Chills, No Night Sweats Pulmonary: No Dyspnea, No Cough Cardiovascular: No: Chest Pain, Palpitations Gastrointestinal: Nausea, Abdominal Pain; No: Vomiting, Diarrhea, Constipation Genitourinary: No Dysuria, No Incontinence Musculoskeletal: No: back pain, leg pain Neurological: No: Weakness, Numbness Objective Exam Vital Signs Date Time Temp Pulse Resp B/P (MAP) Pulse Ox O2 Delivery O2 Flow Rate FiO2 04/17/19 04:28 97.4 87 19 128/64 (85) 94 Room Air 04/17/19 04:00 94 Room Air 2.00 04/17/19 02:53 98.6 04/17/19 00:30 98.6 04/17/19 00:09 94 Room Air 2.00 04/16/19 23:54 98.6 88 18 151/81 (104) 94 Room Air 04/16/19 22:37 99.5 87 20 173/70 (104) 94 Room Air 04/16/19 22:00 90 24 149/79 (102) 93 Room Air 04/16/19 21:00 96 Room Air 04/16/19 21:00 92 20 115/76 (89) 92 Room Air 04/16/19 20:00 94 Room Air 04/16/19 20:00 82 11 148/68 (94) 92 Room Air 04/16/19 19:43 98.4 84 18 153/63 (93) 92 Nasal Cannula 2.00 04/16/19 19:00 98.7 18 94 Room Air 04/16/19 19:00 82 14 156/80 (105) 93 Room Air 04/16/19 19:00 Room Air 04/16/19 19:00 82 04/16/19 18:57 Room Air 04/16/19 18:52 Room Air 04/16/19 18:50 18 97 Room Air 04/16/19 18:45 18 100 OxyMask 3 04/16/19 18:43 OxyMask 3 04/16/19 18:40 18 100 OxyMask 6 04/16/19 18:30 OxyMask 6 04/16/19 18:30 18 100 OxyMask 6 04/16/19 18:22 OxyMask 6 04/16/19 18:20 18 100 OxyMask 6 04/16/19 18:16 98.2 14 98 OxyMask 6 04/16/19 16:00 99.4 04/16/19 16:00 93 Nasal Cannula 2.00 04/16/19 16:00 89 18 119/70 (86) 97 Nasal Cannula 2.00 04/16/19 14:00 88 8 126/47 (73) 96 Nasal Cannula 2.00 04/16/19 13:00 86 04/16/19 12:00 98.5 04/16/19 12:00 93 Nasal Cannula 2.00 04/16/19 12:00 90 12 125/52 (76) 97 Nasal Cannula 2.00 04/16/19 10:00 90 12 134/65 (88) 95 Nasal Cannula 2.00 04/16/19 09:05 95 Nasal Cannula 2.00 04/16/19 08:00 92 13 131/67 (88) 95 Nasal Cannula 2.00 04/16/19 07:57 93 Nasal Cannula 2.00 I & O 04/17/19 07:00 Intake Total 2350 ml Output Total 1105 ml Balance 1245 ml Capillary Refill : Less Than 3 Seconds General Appearance: No Apparent Distress HEENT: PERRL/EOMI, TMs Normal, Normal ENT Inspection Respiratory: Chest Non Tender, No Accessory Muscle Use, No Respiratory Distress Cardiovascular: Regular Rate, Rhythm, Normal Peripheral Pulses Gastrointestinal: non tender, soft Extremity: Non Tender Neurologic/Psychiatric: Alert, Oriented x3, No Motor/Sensory Deficits, refining engineer II- XII Norm as Tested Skin: Other (Dressing CDI) Assessment/Plan Assessment/Plan Assess & Plan/Chief Complaint S/P SCS lead revision with evacuation of epidural hematoma Ambulate Continue current treatment plan Clinical Quality Measures DVT/VTE Risk/Contraindication: Risk Factor Score Per Nursin RFS Level Per Nursing on Admit: 4+=Very High ELENA BROWN Apr 17, 2019 07:16
--- NOTE | 2019-04-17 07:57 | Anesthesia-General Post-Op ---
General Patient Condition Mental Status/LOC: Same as Preop Cardiovascular: Satisfactory Nausea/Vomiting: Absent Respiratory: Satisfactory Pain: Controlled Complications: Absent Post Op Complications Complications None Follow Up Care/Instructions Patient Instructions None needed. Anesthesia/Patient Condition Patient Condition Patient is doing well, no complaints, stable vital signs, no apparent adverse anesthesia problems. No complications reported per nursing. DC CORDERO CRNA Apr 17, 2019 07:57
--- NOTE | 2019-04-17 08:59 | Physical Therapy Evaluation ---
PT Evaluation-General Medical Diagnosis Admission Date Apr 15, 2019 at 23:00 Medical Diagnosis: s/p SCS paddle lead revision with evacuation of epidural hematoma Onset Date: Apr 15, 2019 Therapy Diagnosis Therapy Diagnosis: impaired mobility, strength, endurance, balance Height/Weight Height (Feet): 5 Height (Inches): 2.00 Weight (Pounds): 178 Weight (Ounces): 1.0 Precautions Precautions/Isolations: Fall Prevention, Standard Precautions Weight Bear Status Right Lower Extremity: Right Full Weight Bearing Left Lower Extremity: Left Full Weight Bearing Referral Physician: Jacob Arora Reason for Referral: Evaluation/Treatment Medical History Additional Medical History Past Medical History Surgeries: Yes (HYST/BSO; CARCINOID OF APPENDIX-APPY; RIGHT CARPAL TUNNEL; LEFT KNEE SCOPE; LUMBAR LAMINECTOMY; THORACIC SPINAL CORD STIMULATOR WITH T9-T10 LAMINECTOMY 04/15/19) Appendectomy, Gallbladder, Hysterectomy, Orthopedic Respiratory: Yes (CHRONIC COUGH) Asthma, COPD Cardiac: Yes (MITRAL VALVE PROLAPSE) Hypertension, Valvular Heart Disease Neurological: Yes (DUNN'S PALSY) Headaches /Migraines, TIA Reproductive Disorders: Yes (HX.FIBROIDS-HYSTERECTOMY) 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 History: Hysterectomy, Menopausal Sexually Transmitted Disease: No HIV/AIDS: No Genitourinary: Yes (KIDNEY STONES NOTED ON CT SCAN--PT HAS NEVER PASSED ONE) Kidney Stones Gastrointestinal: Yes (CARCINOID APPENDIX; S/P CHARLI) Gall Bladder Disease Musculoskeletal: Yes (POOR BALANCE AND FREQUENT FALLS; CHRONIC NECK PAIN AND STIFFNESS; CHRONIC BACK PAIN--S/P LAMINECTOMY AND SPINAL CORD STIMULATOR) Degenerate Disk Disease, Chronic Back Pain Endocrine: No HEENT: Yes (READING GLASSES; NOSEBLEEDS) Loss of Vision: Denies Hearing Impairment: Denies Cancer: No Psychosocial: No Integumentary: Yes (SHINGLES) Reviewed History: Yes Social History Home: Single Level Current Living Status: Alone Entry Into Home: Level Entry Prior/Core FIM Prior Level of Function Therapy Code Descriptions/Definitions Functional [place] Measure: 0=Not Assessed/NA 4=Minimal Assistance 1=Total Assistance 5=Supervision or Setup 2=Maximal Assistance 6=Modified [place] 3=Moderate Assistance 7=Complete [place] Therapy Quality Codes: 6 Independent with activity with or without an assistive device 5 Patient requires set up or clean up by helper. Patient completes activity by themselves 4 Supervision or touching assist (CGA). [place] provide cues , steadying assist 3 The helper provides less than half the effort to complete the activity 2 The helper provides more than half the effort to complete the activity 1 Dependent. The helper does all the effort to complete an activity 7 Patient refused to complete or attempt activity 9 The patient did not perform the activity before the current illness or injury 88 Not attempted due to Medical conditions or safety concerns Functional Abilities and Goals: Independent: Patient completed the activities by him/herself, with or without an assistive device, with no assistance from a helper. Needed Some Help: Patient needed partial assistance from another person to complete activities. Dependent: A helper completed the activities for the patient. Unknown: Not Applicable: Bed Mobility: 6 Transfers (B,C,W/C) (FIM): 6 Gait: 6 Indoor Mobility (Ambulation): Independent Patient was using a single point cane previously but states she probably needs to use a walker, she says she falls frequently. PT Evaluation-Current Subjective Patient in bed pre tx, agrees to PT with encouragement, has 5/10 pain in abdomen. Pt/Family Goals "to decrease her pain" Objective Patient Orientation: Person, Place, Situation Attachments: IV ROM/Strength ROM Lower Extremities WNL Strength Lower Extremities 4/5 gross bilateral lower extremities Sensory Hearing: Functional Sensation Right Lower Extremit: Intact Sensation Left Lower Extremity: Intact Transfers Therapy Code Descriptions/Definitions Functional [place] Measure: 0=Not Assessed/NA 4=Minimal Assistance 1=Total Assistance 5=Supervision or Setup 2=Maximal Assistance 6=Modified [place] 3=Moderate Assistance 7=Complete [place] Transfers (B, C, W/C) (FIM): 4 Scootin Rollin Supine to/from Sit: 4 Sit to/from Stand: 5 Min assist for supine to sit Gait Mode of Locomotion: Walk Anticipated Mode of Locomotion: Walk Gait (FIM): 2 Distance: 120' Gait Level of Assist: 5 Gait Persons Needed: 1 Gait Assistive Device: FWW Comments/Gait Description Patient ambulates very slowly, takes short steps, poor foot clearance, no LOB, some unsteadiness with turning. Assessment/Needs Patient has impaired mobility, strength, endurance, balance. She states she falls frequently at home. Rehab Potential: Fair PT Short Term Goals Short Term Goals Time Frame: Apr 24, 2019 Transfers (B,C,W/C) (FIM): 5 Gait (FIM): 5 Gait Distance Comment: 150' Gait Level of Assist: 5 Gait Assistive Device: FWW PT Plan Problem List Problem List: Activity Tolerance, Functional Strength, Safety, Balance, Gait, Transfer, Bed Mobility Treatment/Plan Treatment Plan: Continue Plan of Care Treatment Plan: Bed Mobility, Education, Functional Activity Lynds[place], Functional Strength, Gait, Safety, Therapeutic Exercise, Transfers Treatment Duration: Apr 24, 2019 Frequency: 6 times per week Estimated Hrs Per Day: .25 hour per day Patient and/or Family Agrees t: Yes Safety Risks/Education Patient Education: Gait Training, Transfer Techniques, Correct Positioning, Safety Issues Teaching Recipient: Patient Teaching Methods: Demonstration, Discussion Response to Teaching: Reinforcement Needed Discharge Recommendations Plan Patient will perform bed mobility and transfer training, balance and endurance training, functional strengthening, gait training, and education, to improve functional mobility and independence at home. Therapy D/C Recommendations: Home w/ Family Support Time/GCodes Time In: 0828 Time Out: 0850 Total Billed Treatment Time: 22 Total Billed Treatment 1 visit THANIA 22' HARIS WINSTON PT Apr 17, 2019 08:58
[2019-04-17] MEDS: PARoxetine 10 MG (PAXIL) TAB PO SCH (09:03)
[2019-04-17] MEDS: VALACYCLOVIR 500 MG TAB (VALTREX) PO SCH ×2 (09:03→21:43)
[2019-04-17] MEDS: GABAPENTIN 300 MG (NEURONTIN) CAP PO SCH ×3 (09:04→21:49)
[2019-04-17] MEDS: amLODIPine 2.5MG (NORVASC) TAB PO SCH ×2 (09:04→21:43)
[2019-04-17] MEDS ORDERED: DEXAMETHASONE 4 MG/ML SDV (DECADRON) IV NR (09:16)
[2019-04-17] MEDS ORDERED: ceFAZolin INJECTION 2,000 MG in WATER (STERILE) FOR INJECTION 10 ML IV NR (15:32)
--- NOTE | 2019-04-17 15:40 | Occupational Therapy Eval ---
OT Evaluation-General/PLF Medical Diagnosis Admission Date Apr 17, 2019 at 11:52 Medical Diagnosis: s/p SCS paddle lead revision with evacuation of epidural hematoma Onset Date: Apr 15, 2019 Therapy Diagnosis Therapy Diagnosis: Weakness Height/Weight Height (Feet): 5 Height (Inches): 2.00 Weight (Pounds): 178 Weight (Ounces): 1.0 Precautions Precautions/Isolations: Fall Prevention, Standard Precautions Safety Interventions: None Weight Bear Status Weight Bearing Restriction: Weight Bearing/Tolerated Back precautions Referral Physician: Jacob Arora Referral Reason: Activity Tolerance, Self Care, Evaluation/Treatment, Strengthening/ROM Medical History Pertinent Medical History: HTN Additional Medical History [place] palsy, appendectomy, hysterectomy, mitral valve prolapse Current History Pt. had back surgery in October. States that she began having severe pain later on. Had SCS placed two days ago. Went in for hematoma evacuation yesterday. Reviewed History: Yes Social History Home: Single Level Current Living Status: Alone Entry Into Home: Level Entry ADL-Prior Level of Function Therapy Code Descriptions/Definitions Functional [place] Measure: 0=Not Assessed/NA 4=Minimal Assistance 1=Total Assistance 5=Supervision or Setup 2=Maximal Assistance 6=Modified [place] 3=Moderate Assistance 7=Complete [place] Therapy Quality Codes: 6 Independent with activity with or without an assistive device 5 Patient requires set up or clean up by helper. Patient completes activity by themselves 4 Supervision or touching assist (CGA). [place] provide cues , steadying assist 3 The helper provides less than half the effort to complete the activity 2 The helper provides more than half the effort to complete the activity 1 Dependent. The helper does all the effort to complete an activity 7 Patient refused to complete or attempt activity 9 The patient did not perform the activity before the current illness or injury 88 Not attempted due to Medical conditions or safety concerns Functional Abilities and Goals: Independent: Patient completed the activities by him/herself, with or without an assistive device, with no assistance from a helper. Needed Some Help: Patient needed partial assistance from another person to complete activities. Dependent: A helper completed the activities for the patient. Unknown: Not Applicable: ADL PLOF Comments Pt. lives alone. States that she is independent with daily activities. Self Care: Independent Functional Cognition: Independent DME/Equipment: Bath Chair, Grab Bars, Tub/Shower DME/Equipment Comments Pt. states that she would like a walker and BSC for home. This was reported to nursing. OT Current Status Subjective Pt. does not report pain level. Pt. currently using ELECTRICAL HELPER. Does report anxiety however. Appearance Pt. in bed. Alert and oriented. Mental Status/Objective Patient Orientation: Person, Place Attachments: Drains, IV Current Upper Extremity ROM WFL ADL-Treatment Therapy Code Descriptions/Definitions Functional [place] Measure: 0=Not Assessed/NA 4=Minimal Assistance 1=Total Assistance 5=Supervision or Setup 2=Maximal Assistance 6=Modified [place] 3=Moderate Assistance 7=Complete [place] Therapy Quality Codes: 6 Independent with activity with or without an assistive device 5 Patient requires set up or clean up by helper. Patient completes activity by themselves 4 Supervision or touching assist (CGA). [place] provide cues , steadying assist 3 The helper provides less than half the effort to complete the activity 2 The helper provides more than half the effort to complete the activity 1 Dependent. The helper does all the effort to complete an activity 7 Patient refused to complete or attempt activity 9 The patient did not perform the activity before the current illness or injury 88 Not attempted due to Medical conditions or safety concerns Lower Body Dressing (FIM): 2 Transfers (B, C, W/C) (FIM): 4 Pt. reports that she has anxiety and would like something for it when she goes home. States that she is supposed to leave tomorrow, but would like one more day to make sure her pain is okay. Pt. reports that she needs a walker and would like a BSC to place over her toilet at home. Pt. reports that she does not want to go to a [facility], but that her daughter wants her to. She conveys that she is upset at her daughter. Pt. transferred supine-sit with cues for back safety and log roll with min assist. Stood with SBA and took several steps toward HOB. Pt. unable to bring legs up to her in sitting to don socks. States that she is not supposed to don socks because she isn't allowed to bend over. OT explains that yes, she does have back precautions, but that OT will bring in AE to teach her to use for LE dressing. Pt. states that she is not interested. States that she will wear slip on shoes at home. OT explains that she will have to be able to get shorts on too, or underwear, and that equipment will help. Pt. states that she doesn't want to see it, and that she will be fine with that. Pt. able to lay back on side and to back with CGA. OT encourages pt. to use log roll, as to not strain back muscles with laying backward. Pt. verbalizes understanding. Pt. received company at this time. All of this information was conveyed with nursing for discharge planning. Education OT Patient Education: Correct positioning, Modified ADL techniques, Progress toward Goal/Update tx plan, Purpose of tx/functional activities, Reviewed precautions, Rehab process, Transfer techniques Teaching Recipient: Patient Teaching Methods: Demonstration, Discussion Response to Teaching: Verbalize Understanding, Return Demonstration OT Short Term Goals Short Term Goals Transfers (B,C,W/C) (FIM): 5 1=Demonstrate adherence to instructed precautions during ADL tasks. 2=Patient will verbalize/demonstrate understanding of assistive devices/modifications for ADL. 3=Patient will improve strength/tolerance for activity to enable patient to perform ADL's. OT Product Marketing Programs Manager Goals Product Marketing Programs Manager Goals Time Frame: Apr 24, 2019 Eating (FIM): 6 Grooming(FIM): 6 Bathing(FIM): 5 Upper Body Dressing(FIM): 5 Lower Body Dressing(FIM): 5 Toileting(FIM): 6 Transfers (B,C,W/C) (FIM): 6 Toilet/Commode Transfer(FIM): 6 Shower Transfer(FIM): 5 Additional Goals: 1-Demonstrate ADL Tasks, 2-Verbalize Understanding, 3- ImproveStrength/Lyndsay 1=Demonstrate adherence to instructed precautions during ADL tasks. 2=Patient will verbalize/demonstrate understanding of assistive devices/modifications for ADL. 3=Patient will improve strength/tolerance for activity to enable patient to perform ADL's. OT Education/Plan Problem List/Assessment Assessment: Decreased Activ Tolerance, Dependent Transfers, Impaired Bed Mobility, Impaired I ADL's, Impaired Self-Care Skills Discharge Recommendations Plan/Recommendations: Continue POC Therapy D/C Recommendations: Home w/ Family Support, Occupational Therapy Home Care, Scheduled Assistance Barriers to Progress Pt. seems resistant to attempting new tasks such as using AE that will make current ADLS easier. Treatment Plan/Plan of Care Treatment,Training & Education: Yes Patient would benefit from OT for education, treatment and training to promote independence in ADL's, mobility, safety and/or upper extremity function for ADL's. Plan of Care: ADL Retraining, Functional Mobility, UE Funct Exercise/Act Treatment Duration: Apr 24, 2019 Frequency: 5 times per week Estimated Hrs Per Day: .25 hour per day Agreement: Yes Rehab Potential: Fair Time/GCodes Start Time: 14:20 Stop Time: 14:55 Total Time Billed (hr/min): 35 Billed Treatment Time 1, EVM x 15minutes, FA x 20minutes CLAUS KERN OT Apr 17, 2019 15:40
[2019-04-17 16:22] VITALS: BP 162/73
[2019-04-17 20:10] VITALS: BP 176/76
[2019-04-18] VITALS: BP 131/70
[2019-04-18 04:00] VITALS: BP 151/67
[2019-04-18] MEDS: morphine INJ 4 MG/ML 1 ML (VIAL/SYRINGE) IV PRN ×4 (04:50→22:58)
[2019-04-18] MEDS: GABAPENTIN 300 MG (NEURONTIN) CAP PO SCH ×3 (08:24→19:57)
[2019-04-18] MEDS: amLODIPine 2.5MG (NORVASC) TAB PO SCH ×2 (08:25→19:57)
[2019-04-18] MEDS: MULTIVIT W/MINERALS TAB (THERAGRAN M) PO SCH (08:25)
[2019-04-18] MEDS: PARoxetine 10 MG (PAXIL) TAB PO SCH (08:25)
[2019-04-18] MEDS: VALACYCLOVIR 500 MG TAB (VALTREX) PO SCH ×2 (08:26→19:57)
--- NOTE | 2019-04-18 09:26 | Physical Therapy Daily Note ---
PT Daily Note-Current Subjective Pt. in bed and agrees to therapy. Pt. reports continued abdominal pain rated 4- 5/10. While ambulating, patient c/o dizziness. Mental Status Patient Orientation: Normal For Age Attachments: Drains Transfers Therapy Code Descriptions/Definitions Functional [place] Measure: 0=Not Assessed/NA 4=Minimal Assistance 1=Total Assistance 5=Supervision or Setup 2=Maximal Assistance 6=Modified [place] 3=Moderate Assistance 7=Complete [place] Therapy Quality Codes: 6 Independent with activity with or without an assistive device 5 Patient requires set up or clean up by helper. Patient completes activity by themselves 4 Supervision or touching assist (CGA). [place] provide cues , steadying assist 3 The helper provides less than half the effort to complete the activity 2 The helper provides more than half the effort to complete the activity 1 Dependent. The helper does all the effort to complete an activity 7 Patient refused to complete or attempt activity 9 The patient did not perform the activity before the current illness or injury 88 Not attempted due to Medical conditions or safety concerns Transfers (B, C, W/C) (FIM): 4 Supine to/from Sit: 5 Sit to/from Stand: 4 toileting, SBA; toilet transfer: CGA Weight Bearing Right Lower Extremity: Right Full Weight Bearing Left Lower Extremity: Left Full Weight Bearing Gait Training Gait (FIM): 4 Distance: 2 x 12 ft, x 225 ft Gait Level of Assist: 4 Gait Persons Needed: 1 Gait Assistive Device: FWW steady with FWW but c/o dizziness Exercises Seated Therapy Exercises: Ankle pumps, Long arc quads, Hip flexion Seated Reps: 15 Treatments gait, functional activity Assessment Current Status: Good Progress Pt. was dizzy during session but able to increase ambulation distance. Pt. was steady during gait and transfers. Pt. up in chair post session with call light and all needs met. PT Short Term Goals Short Term Goals Time Frame: Apr 24, 2019 Transfers (B,C,W/C) (FIM): 5 Gait (FIM): 5 Gait Distance Comment: 150' Gait Level of Assist: 5 Gait Assistive Device: FWW PT Plan Treatment/Plan Treatment Plan: Continue Plan of Care Treatment Plan: Bed Mobility, Education, Functional Activity Lyndsay, Functional Strength, Gait, Safety, Therapeutic Exercise, Transfers Treatment Duration: Apr 24, 2019 Frequency: 6 times per week Estimated Hrs Per Day: .25 hour per day Patient and/or Family Agrees t: Yes Time/GCodes Time In: 908 Time Out: 938 Total Billed Treatment Time: 30 Total Billed Treatment 1, FA 20', GT 10' DEVON MAZARIEGOS PT Apr 18, 2019 09:26
--- NOTE | 2019-04-18 10:12 | Progress Note (SOAP) ---
Subjective Date Seen by a Provider: Apr 18, 2019 Time Seen by a Provider: 10:09 Subjective/Events-last exam POD #2, s/p spinal cord stimulator lead revision Patient states that her pain has improved since surgery She complains of mild abdominal discomfort She complains of generalized malaise and fatigue Review of Systems General: No Chills; Fatigue, Malaise Pulmonary: No Dyspnea, No Cough Cardiovascular: No: Chest Pain Gastrointestinal: Nausea, Abdominal Pain; No: Vomiting Musculoskeletal: No: arm pain, back pain, leg pain Neurological: No: Numbness, Confusion Objective Exam Vital Signs Date Time Temp Pulse Resp B/P (MAP) Pulse Ox O2 Delivery O2 Flow Rate FiO2 04/18/19 09:00 Room Air 04/18/19 04:00 92 Room Air 2.00 04/18/19 04:00 98.2 79 16 151/67 (95) 92 Room Air 04/18/19 00:00 96.5 91 20 131/70 (90) 93 Room Air 04/18/19 00:00 93 Room Air 2.00 04/17/19 21:00 Nasal Cannula 2.00 04/17/19 21:00 93 Room Air 2.00 04/17/19 20:10 98.8 94 20 176/76 (109) 93 Room Air 04/17/19 20:00 94 Room Air 2.00 04/17/19 16:33 94 Room Air 2.00 04/17/19 16:22 99.2 83 20 162/73 (102) 94 Room Air I & O 04/18/19 07:00 Intake Total 3420 ml Output Total 25 ml Balance 3395 ml Capillary Refill : Less Than 3 Seconds General Appearance: No No Apparent Distress Respiratory: No Respiratory Distress Cardiovascular: Regular Rate, Rhythm, No Edema Gastrointestinal: non tender, soft Neurologic/Psychiatric: Alert, Oriented x3, No Motor/Sensory Deficits, Normal Mood/Affect, 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
[2019-04-18] MEDS ORDERED: BACLOFEN 10 MG (LIORESAL) TAB PO PRN (10:15)
--- NOTE | 2019-04-18 11:30 | NUR ---
Removed ROSA M drain from back intact, tolerated well
--- NOTE | 2019-04-18 11:50 | NUR ---
Notified Dr Dumas of irregular pulse, rate 88-120/min, PCT got 150bpm on machine. Pt states "my heart feels like it is racing"
--- NOTE | 2019-04-18 11:59 | Consultation-Hospitalist ---
HPI History of Present Illness: HPI/Chief Complaint Chief complaint: Heart racing History of present illness: This is an 78-year-old white female Dr. Rosenberg who underwent extensive lumbar laminectomy along with pain stimulator placement by Dr. Mark who had been doing pretty well in recovery but remains uncomfortable who started experiencing heart racing that she's never had before. Heart rate was 150 at nursing assessment she called me I consulted cardiology and ordered EKG and stat labs and likely patient will need to go to ICU for new onset atrial fibrillation with rapid ventricular response. This current time patient denies any chest pain but she hasn't been feeling well today feeling weak and just overall not feeling well. We were in the midst of evaluated her for inpatient rehabilitation for the first week. Patient has never had any heart related issues and just feels uncomfortable in her back. Source: patient, RN/MD Exam Limitations: no limitations Date Seen 04/18/19 Attending Physician Hua Mark MD PCP Deneen Rosenberg MD Referring Physician Date of Admission Apr 17, 2019 at 11:52 Home Medications & Allergies Home Medications Reviewed patient Home Medication Reconciliation performed by pharmacy medication reconciliations line service technician and/or nursing. Patients Allergies have been reviewed. Allergies Allergies Coded Allergies Horse/Equine Containing Products (Verified Allergy, Severe, SWELLING, 04/15/19) clopidogrel bisulfate (Unverified Allergy, Severe, SEVERE BLEEDING, 04/15/19) tuberculin, purified protein deriva (Verified Allergy, Severe, POSTITIVE REACTION AND TOLD TO NEVER TAKE IT AGAIN, 04/15/19) clindamycin (Verified Allergy, Intermediate, DIARRHEA, 04/15/19) Penicillins (Verified Allergy, Mild, HIVES, 04/15/19) CAN TAKE KEFLEX Sulfa (Sulfonamide Antibiotics) (Verified Allergy, Mild, RASH, 04/15/19) Past [id number] Hx Past Med/Social Hx: Reviewed Nursing Past Med/Soc Hx, Reviewed and Corrections made Patient Social History Employed/Student: retired Alcohol Use: Denies Use Recreational Drug Use: No Smoking Status: Never a Smoker 2nd Hand Smoke Exposure: No Recent Foreign Travel: No Contact w/other who traveled: No Recent Hopitalizations: No Recent Infectious Disease Expo: No Immunizations Up To Date Date of Pneumonia Vaccine: Jul 24, 2017 Date of Influenza Vaccine: Jul 23, 2018 Seasonal Allergies Seasonal Allergies: Yes Past Medical History Surgeries: Appendectomy, Gallbladder, Hysterectomy, Orthopedic Respiratory: Asthma Cardiac: Hypertension, Valvular Heart Disease Neurological: Headaches /Migraines, TIA : No Reproductive: Yes (HX.FIBROIDS-HYSTERECTOMY) Sexually Transmitted Disease: No HIV/AIDS: No Hysterectomy, Menopausal Genitourinary: Kidney Stones Gastrointestinal: Gall Bladder Disease Musculoskeletal: Degenerate Disk Disease, Chronic Back Pain Loss of Vision: Denies Hearing Impairment: Denies History of Blood Disorders: No Adverse Reaction to Blood Terrazas: No (N/A) Family History No Pertinent Family Hx Review of Systems Constitutional: see HPI, malaise, weakness EENTM: no symptoms reported Respiratory: no symptoms reported Cardiovascular: palpitations Gastrointestinal: loss of appetite, nausea Genitourinary: no symptoms reported Musculoskeletal: back pain Skin: no symptoms reported Psychiatric/Neurological: Anxiety, Depressed All Other Systems Reviewed Negative Unless Noted: Yes Physical Exam Physical Exam Vital Signs Vital Signs - First Documented 04/15/19 04/16/19 20:45 00:15 Temp 99.4 Pulse 97 Resp 20 B/P (MAP) 145/79 (101) Pulse Ox 96 O2 Delivery Nasal Cannula O2 Flow Rate 2.00 Capillary Refill : Less Than 3 Seconds Height, Weight, BMI Height: 5'2.00" Weight: 184lbs. 3.0oz. 83.945018eg; 32.0 BMI Method:Stated General Appearance: No Apparent Distress, WD/WN, Chronically ill Eyes: Bilateral Eye Normal Inspection HEENT: PERRL/EOMI, Normal ENT Inspection, Pharynx Normal Neck: Full Range of Motion, Normal Inspection, Non Tender, Supple Respiratory: Chest Non Tender, Lungs Clear, Normal Breath Sounds, No Accessory Muscle Use, No Respiratory Distress Cardiovascular: No Edema, No Gallop, No JVD, No Murmur, Irregularly Irregular, Tachycardia Gastrointestinal: Normal Bowel Sounds, No Organomegaly, No Pulsatile Mass, Non Tender, Soft Back: No CVA Tenderness, No Vertebral Tenderness Extremity: Normal Capillary Refill, Normal Inspection, Normal Range of Motion, Non Tender Neurologic/Psychiatric: Alert, Oriented x3, No Motor/Sensory Deficits, Normal Mood/Affect, communications 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 Assessment/Plan Assessment and Plan Assess & Plan/Chief Complaint Assessment: Acute onset of palpitations obtaining EKG and cardiology consultation along with stat labs Recent lumbar laminectomy with pain stimulator placement POD # 1 Asthma Hypertension Hypertriglyceridemia Plan: Check EKG Telemetry May need ICU with Jonathan hines with RVR Check labs Monitor closely Diagnosis/Problems Diagnosis/Problems (1) Palpitations Status: Acute (2) Tachycardia Status: Acute (3) Asthma Status: Chronic Qualifiers: Asthma severity: mild Asthma persistence: intermittent Asthma complication type: unspecified Qualified Codes: J45.20 - Mild intermittent asthma, uncomplicated (4) Hypotension Status: Acute Qualifiers: Hypotension type: unspecified hypotension type Qualified Codes: I95.9 - Hypotension, unspecified (5) S/P laminectomy Status: Acute (6) S/P insertion of spinal cord stimulator Status: Acute (7) Radicular pain of thoracic region Status: Acute (8) Post-op pain Status: Acute (9) Lumbago Status: Chronic Qualifiers: Chronicity: chronic Back pain laterality: unspecified Sciatica presence: unspecified whether sciatica present Qualified Codes: M54.5 - Low back pain; G89.29 - Other chronic pain Clinical Quality Measures DVT/VTE Risk/Contraindication: Risk Factor Score Per Nursin RFS Level Per Nursing on Admit: 4+=Very High STAR CANCHOLA DO Apr 18, 2019 11:59
[2019-04-18 12:00] VITALS: BP 90/59
--- NOTE | 2019-04-18 12:02 | NUR ---
Dr. Dumas here to assess patient
[2019-04-18] MEDS ORDERED: NS IV 1000 ML 1,000 ML ONE (12:09)
--- NOTE | 2019-04-18 12:09 | NUR ---
EKG completed and shown to Dr. Dumas
[2019-04-18 12:24] LABS: BASOPHILS % (AUTO) 0 % (0-10); EOSINOPHILS # (AUTO) 0.1 10^3/uL (0.0-0.3); EOSINOPHILS % (AUTO) 1 % (0-10); HEMATOCRIT 39 % (35-52); HEMOGLOBIN 13.2 G/DL (11.5-16.0); LYMPHOCYTES # (AUTO) 4.3 X 10^3 (1.0-4.0); LYMPHOCYTES % (AUTO) 26 % (12-44); MEAN CORPUSCULAR HEMOGLOBIN 31 PG (25-34); MEAN CORPUSCULAR HGB CONC 34 G/DL (32-36); MEAN CORPUSCULAR VOLUME 93 FL (80-99); MEAN PLATELET VOLUME 9.1 FL (7.4-10.4); MONOCYTES # (AUTO) 2.1 X 10^3 (0.0-1.0); MONOCYTES % (AUTO) 12 % (0-12); NEUTROPHILS # (AUTO) 10.2 X 10^3 (1.8-7.8); NEUTROPHILS % (AUTO) 61 % (42-75); PLATELET COUNT 395 10^3/uL (130-400); RED CELL DISTRIBUTION WIDTH 12.7 % (10.0-14.5); WHITE BLOOD COUNT 16.7 10^3/uL (4.3-11.0)
[2019-04-18 12:45] LABS: ALANINE AMINOTRANSFERASE 15 U/L (0-55); ALBUMIN 3.5 GM/DL (3.2-4.5); ALKALINE PHOSPHATASE 95 U/L (40-136); BILIRUBIN,TOTAL 0.4 MG/DL (0.1-1.0); BUN/CREATININE RATIO 17; CALCIUM 9.1 MG/DL (8.5-10.1); CARBON DIOXIDE 29 MMOL/L (21-32); CHLORIDE 99 MMOL/L (98-107); GFR ESTIMATED > 60; GLUCOSE 87 MG/DL (70-105); POTASSIUM 2.9 MMOL/L (3.6-5.0); SODIUM 137 MMOL/L (135-145); TOTAL PROTEIN 6.2 GM/DL (6.4-8.2)
--- NOTE | 2019-04-18 13:20 | NUR ---
Dr Oneal notified of Troponin 0.74 and K+ of 2.9, new orders rec'd for NS 500ml bolus, K+ 40mEq now and repeat in 2 hours and obtain a lactic acid, am to notify Dr. Dumas if it is elevated.
[2019-04-18] MEDS ORDERED: KCL 20 MEQ TAB (K-DUR) PO ONE ×2 (13:45→16:00)
[2019-04-18] MEDS ORDERED: NS IV 500 ML 500 ML IV SCH (13:45)
--- NOTE | 2019-04-18 13:59 | Consultation-Cardiology ---
HPI-Cardiology Cardiology Consultation: Date of Consultation 04/18/19 Time Seen by a Provider: 14:50 Date of Admission Attending Physician Mehul Mark MD Admitting Physician Deneen Rosenberg MD Consulting Physician BASSEM ROMERO MD, MA, FACP, FACC, [facility], CCDS Physician requesting consult: Dr Dumas HPI: Chief Complaint: Reason for consult: Rapid heart rate HPI 78 yo woman who has had back surgeries on 04/15 and 04/16/19 and has been feeling weak and ill. She reports bouts of vomiting after the first surgery. Cu rrently, mild nausea. No diarrhea. No cp or palp or syncope. We were asked to see her becuae her heart rate was rapid. She does not report fever or chills. Has chronic, bilateral leg swelling that is mild to mod. Review of Systems-Cardiology Review of Systems Constitutional: malaise, tiredness; No weight loss, No weight gain Eyes: No vision change Ears/Nose/Throat: No ear discharge, No nasal drainage Respiratory: As described under HPI Cardiovascular: As described under HPI Gastrointestinal: As described under HPI Genitourinary: No dysuria, No hematuria, No urine frequency changes Musculoskeletal: back pain Skin: No rash, No ulcerations Psychiatric/Neurological: No seizure, No focal weakness, No syncope Hematologic: No bleeding abnormalities All Other Systems Reviewed Negative Unless Noted: Yes [id number] Hx Patient Social History Employed/Student: retired Alcohol Use: Denies Use Recreational Drug Use: No Smoking Status: Never a Smoker 2nd Hand Smoke Exposure: No Recent Foreign Travel: No Recent Infectious Disease Expo: No Hospitalization with Isolation: Denies Immunizations Up To Date Date of Pneumonia Vaccine: Jul 24, 2017 Date of Influenza Vaccine: Jul 23, 2018 Past Medical History PMH As described under Assessment. Family Medical History Family Medical History: Does not report fam h/o early CAD or SCD Allergies and Home Medications Allergies Coded Allergies: Horse/Equine Containing Products (Verified Allergy, Severe, SWELLING, 04/15/19) clopidogrel bisulfate (Unverified Allergy, Severe, SEVERE BLEEDING, 04/15/19) tuberculin, purified protein deriva (Verified Allergy, Severe, POSTITIVE REACTION AND TOLD TO NEVER TAKE IT AGAIN, 04/15/19) clindamycin (Verified Allergy, Intermediate, DIARRHEA, 04/15/19) Penicillins (Verified Allergy, Mild, HIVES, 04/15/19) CAN TAKE KEFLEX Sulfa (Sulfonamide Antibiotics) (Verified Allergy, Mild, RASH, 04/15/19) Home Medications Albuterol Sulfate 1 Puff Puff, 2 PUFF IH Q4H PRN for SHORTNESS OF BREATH, (Reported) 1 PUFF = 90 MCG Amlodipine Besylate 5 Mg Tablet, 2.5 MG PO BID, (Reported) Ascorbic Acid 500 Mg Tablet, 500 MG PO DAILY, (Reported) Aspirin 81 Mg Tab.chew, 81 MG PO DAILY, (Reported) Baclofen 20 Mg Tablet, 5 MG PO TID PRN for SPASMS, (Reported) Beta-Carotene 10,000 Unit Capsule, 10,000 UNIT PO DAILY, (Reported) Butalb/Acetaminophen/Caffeine 1 Each Tablet, 1 EACH PO Q6H PRN for HEADACHE, (Reported) Celecoxib 200 Mg Capsule, 200 MG PO DAILY, (Reported) Cholecalciferol (Vitamin D3) 2,000 Unit Tablet, 2,000 UNIT PO DAILY, (Reported) Cyanocobalamin (Vitamin B-12) 5,000 Mcg Tab.rapdis, 5,000 MCG PO DAILY, (Reported) Folic Acid 0.4 Mg Tablet, 0.4 MG PO DAILY, (Reported) Gabapentin 300 Mg Capsule, 300 MG PO TID, (Reported) Gemfibrozil 600 Mg Tablet, 600 MG PO BID, (Reported) L.acidoph & Paracasei,B.lactis 1 Each Capsule, 1 EACH PO DAILY, (Reported) Loratadine 10 Mg Tablet, 10 MG PO DAILY, (Reported) Melatonin/Pyridoxine HCl (B6) 1 Each Tablet, 1 EACH PO HS, (Reported) Montelukast Sodium 10 Mg Tablet, 10 MG PO DAILY, (Reported) Multivitamin 1 Each Capsule, PO DAILY, (Reported) Paroxetine HCl 20 Mg Tablet, 10 MG PO DAILY, (Reported) Pentazocine/Naloxone 50 Mg Tab, 50 MG PO Q4H PRN for PAIN-BREAKTHROUGH Prescribed by: MEHUL MARK on 04/15/19 0856 Potassium Gluconate 99 Mg Tablet, 99 MG PO DAILY, (Reported) Pyridoxine HCl 100 Mg Tablet, 100 MG PO DAILY, (Reported) Ranitidine HCl 150 Mg Tablet, 150 MG PO DAILY, (Reported) Valacyclovir HCl 1,000 Mg Tablet, 1,000 MG PO BID, (Reported) Vitamin E Acetate 400 Unit Capsule, 400 UNIT PO DAILY, (Reported) Zinc Amino Acid Chelate 50 Mg Tablet, 50 MG PO DAILY, (Reported) Patient Home Medication List Home Medication List Reviewed: Yes Physical Exam-Cardiology Physical Exam Vital Signs/I&O 04/18/19 04/18/19 04/18/19 04/18/19 09:00 12:00 13:56 15:41 Temp 97.4 99.6 Pulse 150 94 100 Resp 18 20 B/P (MAP) 90/59 (69) 108/50 (69) Pulse Ox 93 94 O2 Delivery Room Air Room Air 04/18/19 00:00 Intake Total 2920 ml Output Total 25 ml Balance 2895 ml Capillary Refill : Less Than 3 Seconds Constitutional: AAO x 3, well-developed, well-nourished, other (appears weak) HEENT: PERRL, EOMI; No xanthelasmas are seen Neck: carotid pulses are 2 + bilaterally Respiratory: No accessory muscle use; other (good bilateral air entry, diminished at the bases) Cardiovascular: regular rate-rhythm, S1 and S2, systolic murmur (soft PRETTY at card base) Gastrointestinal: No tender; soft; No guarding, No rebound; audible bowel sounds Extremities: No clubbing, No cyanosis, No significant edema Neurologic/Psychiatric: oriented x 3, other (seems to be able to move all limbs equally) Skin: No rash on exposed areas, No ulcerations on exposed areas Data Review Labs Laboratory Tests 04/18/19 12:15: White Blood Count 16.7H, Red Blood Count 4.22L, Hemoglobin 13.2, Hematocrit 39, Mean Corpuscular Volume 93, Mean Corpuscular Hemoglobin 31, Mean Corpuscular Hemoglobin Concent 34, Red Cell Distribution Width 12.7, Platelet Count 395, Mean Platelet Volume 9.1, Neutrophils (%) (Auto) 61, Lymphocytes (%) (Auto) 26, Monocytes (%) (Auto) 12, Eosinophils (%) (Auto) 1, Basophils (%) (Auto) 0, Neutrophils # (Auto) 10.2H, Lymphocytes # (Auto) 4.3H, Monocytes # (Auto) 2.1H, Eosinophils # (Auto) 0.1, Basophils # (Auto) 0.0, Sodium Level 137, Potassium Level 2.9L, Chloride Level 99, Carbon Dioxide Level 29, Anion Gap 9, Blood Urea Nitrogen 12, Creatinine 0.70, Estimat Glomerular Filtration Rate > 60, BUN/Creatinine Ratio 17, Glucose Level 87, Calcium Level 9.1, Corrected Calcium 9.5, Total Bilirubin 0.4, Aspartate Amino Transf (AST/SGOT) 21, Alanine Aminotransferase (ALT/SGPT) 15, Alkaline Phosphatase 95, Troponin I 0.074H, B- Type Natriuretic Peptide 52.5, Total Protein 6.2L, Albumin 3.5, Thyroid Stimulating Hormone (TSH) 4.83 04/18/19 14:00: Lactic Acid Level 0.82 Microbiology 04/16/19 MRSA Screen - Final, Complete MRSA not isolated Laboratory Tests 04/18/19 12:15 A/P-Cardiology Assessment/Admission Diagnosis Sinus tachycardia, transient low bp, and leucocytosis: Consider sepsis Minimal troponin elevation, likely type 2 SD, due to the above-noted conditions S/p laminectomy (04/15/19), hematoma evac (04/16/19) and SCS electrode revision (04/16/19) Hypokalemia H/o hypertension Chronic mild intermittent leg swelling. DVT w/u in the past has been negative. Segmental pressures of December 2016 did not show evidence of peripheral arterial disease No evidence of myocardial ischemia or infarction and LVEF 67% on MPI of December 2016 Echo of 04/18/19 showed LVEF 65-70%, mild mitral annular calcification, mild conc LVH, grade 1 oates dysfunction, RVSP 20 mmHg Sleep apnea, but non-compliant with therapy Mild COPD and asthma, by history Mild hyperlipidemia, by history Discussion and Recomendations * iv fluids * Replenish K * Monitor labs * I answered her CV-related questions Clinical Quality Measures DVT/VTE Risk/Contraindication: Risk Factor Score Per Nursin RFS Level Per Nursing on Admit: 4+=Very High BASSEM ROMERO MD [facility] Apr 18, 2019 13:59
--- NOTE | 2019-04-18 14:21 | Occ Therapy Progress Note ---
Therapy Progress Note NSG request hold therapy this date secondary to increase heart rate (>150 bpm). OT will re-attempt to see patient 04/19/19 COLE SCHMIDT OT Apr 18, 2019 14:21
[2019-04-18 15:41] VITALS: BP 108/50
[2019-04-18] MEDS: NS IV 1000 ML 1,000 ML IV SCH (15:59)
[2019-04-18 19:48] VITALS: BP 134/60
[2019-04-18] MEDS: SENNA W/DOCUSATE (SENOKOT S) TABLET PO SCH (20:00)
[2019-04-18 23:57] VITALS: BP 129/59
[2019-04-19] MEDS: ACET/BUTAL/CAFF (FIORICET) TAB PO PRN ×2 (01:25→14:51)
[2019-04-19] MEDS: NS IV 1000 ML 1,000 ML IV SCH ×3 (01:25→21:58)
[2019-04-19] MEDS: morphine INJ 4 MG/ML 1 ML (VIAL/SYRINGE) IV PRN ×4 (03:28→19:59)
[2019-04-19 03:34] VITALS: BP 145/64
[2019-04-19] MEDS: MULTIVIT W/MINERALS TAB (THERAGRAN M) PO SCH (06:06)
[2019-04-19 08:00] VITALS: BP 145/72
[2019-04-19] MEDS: GABAPENTIN 300 MG (NEURONTIN) CAP PO SCH ×3 (08:35→20:00)
[2019-04-19] MEDS: VALACYCLOVIR 500 MG TAB (VALTREX) PO SCH ×2 (08:35→20:00)
[2019-04-19] MEDS: SENNA W/DOCUSATE (SENOKOT S) TABLET PO SCH ×2 (08:35→20:00)
[2019-04-19] MEDS: amLODIPine 2.5MG (NORVASC) TAB PO SCH ×2 (08:35→20:00)
[2019-04-19] MEDS: PARoxetine 10 MG (PAXIL) TAB PO SCH (08:35)
--- NOTE | 2019-04-19 09:38 | Progress Note (SOAP) ---
Subjective Date Seen by a Provider: Apr 19, 2019 Time Seen by a Provider: 09:37 Subjective/Events-last exam POD #3, s/p thoracic scs lead revision with evacuation of epidural hematoma VSS, Afebrile Episode of sinus tachycardia noted from yesterday Patient up walking, complains of generalized fatigue Review of Systems General: No Chills; Fatigue Pulmonary: No Dyspnea, No Cough Cardiovascular: No: Chest Pain Gastrointestinal: No: Nausea, Vomiting Musculoskeletal: No: arm pain, back pain, leg pain Neurological: No: Numbness, Incoordination, Change in speech, Confusion Focused Exam Lactate Level 04/18/19 14:00: Lactic Acid Level 0.82 Objective Exam Vital Signs Date Time Temp Pulse Resp B/P (MAP) Pulse Ox O2 Delivery O2 Flow Rate FiO2 04/19/19 08:37 Room Air 04/19/19 08:00 98.9 96 20 145/72 (96) 95 Room Air 04/19/19 07:00 97 04/19/19 03:34 98.1 89 18 145/64 (91) 93 Room Air 04/19/19 01:00 97 04/18/19 23:57 99.0 94 18 129/59 (82) 94 Room Air 04/18/19 21:11 Room Air 04/18/19 19:48 99.2 89 20 134/60 (84) 93 Room Air 04/18/19 19:00 88 04/18/19 15:41 99.6 100 20 108/50 (69) 94 Room Air 04/18/19 13:56 94 04/18/19 12:00 97.4 150 18 90/59 (69) 93 I & O 04/19/19 07:00 Intake Total 5745 ml Output Total 22 ml Balance 5723 ml Capillary Refill : Less Than 3 Seconds General Appearance: No Apparent Distress Respiratory: No Accessory Muscle Use, No Respiratory Distress Cardiovascular: No Edema Extremity: Normal Range of Motion Neurologic/Psychiatric: Alert, Oriented x3, No Motor/Sensory Deficits, Normal 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, 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 Norm as Tested Skin: Other (incisions CDI) Results Lab Laboratory Tests 04/18/19 12:15: White Blood Count 16.7H, Red Blood Count 4.22L, Hemoglobin 13.2, Hematocrit 39, Mean Corpuscular Volume 93, Mean Corpuscular Hemoglobin 31, Mean Corpuscular Hemoglobin Concent 34, Red Cell Distribution Width 12.7, Platelet Count 395, Mean Platelet Volume 9.1, Neutrophils (%) (Auto) 61, Lymphocytes (%) (Auto) 26, Monocytes (%) (Auto) 12, Eosinophils (%) (Auto) 1, Basophils (%) (Auto) 0, Neutrophils # (Auto) 10.2H, Lymphocytes # (Auto) 4.3H, Monocytes # (Auto) 2.1H, Eosinophils # (Auto) 0.1, Basophils # (Auto) 0.0, Sodium Level 137, Potassium Level 2.9L, Chloride Level 99, Carbon Dioxide Level 29, Anion Gap 9, Blood Urea Nitrogen 12, Creatinine 0.70, Estimat Glomerular Filtration Rate > 60, BUN/Creatinine Ratio 17, Glucose Level 87, Calcium Level 9.1, Corrected Calcium 9.5, Total Bilirubin 0.4, Aspartate Amino Transf (AST/SGOT) 21, Alanine Aminotransferase (ALT/SGPT) 15, Alkaline Phosphatase 95, Troponin I 0.074H, B- Type Natriuretic Peptide 52.5, Total Protein 6.2L, Albumin 3.5, Thyroid Stimulating Hormone (TSH) 4.83 04/18/19 14:00: Lactic Acid Level 0.82 Microbiology 04/16/19 MRSA Screen - Final, Complete MRSA not isolated Assessment/Plan Assessment/Plan Assess & Plan/Chief Complaint S/P SCS lead revision with evacuation of epidural hematoma hypokalemia- repeat labs now sinus tachycardia- resolved Discussed patient care with Dr. Dumas, who will follow the patient and plans to accept to inpatient rehab when a bed is available Patient to follow up with Dr. Mark in 2 weeks as previously arranged Clinical Quality Measures DVT/VTE Risk/Contraindication: Risk Factor Score Per Nursin RFS Level Per Nursing on Admit: 4+=Very High ELENA BROWN Apr 19, 2019 09:38
--- NOTE | 2019-04-19 09:58 | Physical Therapy Daily Note ---
PT Daily Note-Current Subjective Patient reluctantly agrees to PT. She states she doesn't feel any better. Pain Numeric Pain Scale: 5-Moderate Pain Location: Medial Location Body Site: Back Pain Description: Acute Mental Status Patient Orientation: Normal For Age Attachments: IV Transfers Therapy Code Descriptions/Definitions Functional [place] Measure: 0=Not Assessed/NA 4=Minimal Assistance 1=Total Assistance 5=Supervision or Setup 2=Maximal Assistance 6=Modified [place] 3=Moderate Assistance 7=Complete [place] Therapy Quality Codes: 6 Independent with activity with or without an assistive device 5 Patient requires set up or clean up by helper. Patient completes activity by themselves 4 Supervision or touching assist (CGA). Hershey provide cues , steadying assist 3 The helper provides less than half the effort to complete the activity 2 The helper provides more than half the effort to complete the activity 1 Dependent. The helper does all the effort to complete an activity 7 Patient refused to complete or attempt activity 9 The patient did not perform the activity before the current illness or injury 88 Not attempted due to Medical conditions or safety concerns Transfers (B, C, W/C) (FIM): 6 Scootin Rollin Supine to/from Sit: 6 Sit to/from Stand: 6 Bed to/from Chair: 6 patient toileted self without difficulty Weight Bearing Right Lower Extremity: Right Full Weight Bearing Left Lower Extremity: Left Full Weight Bearing Gait Training Gait (FIM): 6 Distance (FIM): 3=150 ft Distance: 450'; 150' Gait Level of Assist: 6 Gait Assistive Device: FWW safe and steady gait sequence with FWW Exercises Seated Therapy Exercises: Ankle pumps, Long arc quads Seated Reps: 15 Assessment Patient tolerated treatment well and has progressed quickly. Patient demon strates steady, functional gait sequence with no deviation. Patient has concern for caring for self at home alone, however, from a PT standpoint, patient's gross motor skills are functional and safe. PT Short Term Goals Short Term Goals Time Frame: Apr 24, 2019 Transfers (B,C,W/C) (FIM): 5 Gait (FIM): 5 Gait Distance Comment: 150' Gait Level of Assist: 5 Gait Assistive Device: FWW PT Plan Treatment/Plan Treatment Plan: Continue Plan of Care Treatment Plan: Bed Mobility, Education, Functional Activity Lyndsay, Functional Strength, Gait, Safety, Therapeutic Exercise, Transfers Treatment Duration: Apr 24, 2019 Frequency: 6 times per week Estimated Hrs Per Day: .25 hour per day Patient and/or Family Agrees t: Yes Time/GCodes Time In: 906 Time Out: 929 Total Billed Treatment Time: 23 Total Billed Treatment 1 visit FA 15 min EX 8 min SRINIVAS ALONSO PT Apr 19, 2019 09:58
[2019-04-19 10:06] LABS: BASOPHILS % (AUTO) 0 % (0-10); EOSINOPHILS # (AUTO) 0.4 10^3/uL (0.0-0.3); EOSINOPHILS % (AUTO) 4 % (0-10); HEMATOCRIT 39 % (35-52); LYMPHOCYTES # (AUTO) 3.1 X 10^3 (1.0-4.0); LYMPHOCYTES % (AUTO) 26 % (12-44); MEAN CORPUSCULAR HEMOGLOBIN 32 PG (25-34); MEAN CORPUSCULAR HGB CONC 34 G/DL (32-36); MEAN CORPUSCULAR VOLUME 95 FL (80-99); MEAN PLATELET VOLUME 9.3 FL (7.4-10.4); MONOCYTES # (AUTO) 1.6 X 10^3 (0.0-1.0); MONOCYTES % (AUTO) 14 % (0-12); NEUTROPHILS # (AUTO) 6.9 X 10^3 (1.8-7.8); NEUTROPHILS % (AUTO) 57 % (42-75); PLATELET COUNT 402 10^3/uL (130-400); RED CELL DISTRIBUTION WIDTH 12.6 % (10.0-14.5); WHITE BLOOD COUNT 12.1 10^3/uL (4.3-11.0)
--- NOTE | 2019-04-19 10:32 | Progress Note ---
Subjective Date Seen by a Provider: Apr 19, 2019 Time Seen by a Provider: 10:40 Subjective/Events-last exam PT REPORTS THAT SHE STILL HAS QUITE A BIT OF PAIN IN HER BACK FROM HER SURGERY. SHE REPORTS THAT SHE HAS HAD SOME NAUSEA, WORSE WITH ORAL PAIN MEDICATIONS AND SHE STATES THAT SHE HAS BEEN DOING WELL WITH IV PAIN MEDICATION. Review of Systems General: No Chills; Fatigue; No Malaise HEENT: No Head Aches Pulmonary: No Dyspnea, No Cough Cardiovascular: No: Chest Pain, Palpitations Gastrointestinal: No: Nausea, Abdominal Pain Musculoskeletal: back pain Neurological: Weakness; No: Confusion Focused Exam Lactate Level 04/18/19 14:00: Lactic Acid Level 0.82 Objective Exam Last Set of Vital Signs Vital Signs Date Time Temp Pulse Resp B/P (MAP) Pulse Ox O2 Delivery O2 Flow Rate FiO2 04/19/19 08:37 Room Air 04/19/19 08:00 98.9 96 20 145/72 (96) 95 04/18/19 04:00 2.00 Capillary Refill : Less Than 3 Seconds I&O Intake and Output 04/19/19 00:00 Intake Total 4645 ml Output Total 22 ml Balance 4623 ml Intake Oral 2015 ml IV Total 2630 ml Drainage Total 22 ml # Voids 7 General: Alert, Oriented X3, Cooperative, No Acute Distress HEENT: Atraumatic, PERRLA Neck: Supple Lungs: Clear to Auscultation, Normal Air Movement Heart: Regular Rate Abdomen: Normal Bowel Sounds, Soft, No Tenderness Extremities: No Clubbing Skin: No Rashes, No Breakdown Neuro: Cranial Nerves 3-12 NL Psych/Mental Status: Mental Status NL, Mood NL Results Lab Laboratory Tests 04/18/19 12:15: White Blood Count 16.7H, Red Blood Count 4.22L, Hemoglobin 13.2, Hematocrit 39, Mean Corpuscular Volume 93, Mean Corpuscular Hemoglobin 31, Mean Corpuscular Hemoglobin Concent 34, Red Cell Distribution Width 12.7, Platelet Count 395, Mean Platelet Volume 9.1, Neutrophils (%) (Auto) 61, Lymphocytes (%) (Auto) 26, Monocytes (%) (Auto) 12, Eosinophils (%) (Auto) 1, Basophils (%) (Auto) 0, Neutrophils # (Auto) 10.2H, Lymphocytes # (Auto) 4.3H, Monocytes # (Auto) 2.1H, Eosinophils # (Auto) 0.1, Basophils # (Auto) 0.0, Sodium Level 137, Potassium Level 2.9L, Chloride Level 99, Carbon Dioxide Level 29, Anion Gap 9, Blood Urea Nitrogen 12, Creatinine 0.70, Estimat Glomerular Filtration Rate > 60, BUN/Creatinine Ratio 17, Glucose Level 87, Calcium Level 9.1, Corrected Calcium 9.5, Total Bilirubin 0.4, Aspartate Amino Transf (AST/SGOT) 21, Alanine Aminotransferase (ALT/SGPT) 15, Alkaline Phosphatase 95, Troponin I 0.074H, B- Type Natriuretic Peptide 52.5, Total Protein 6.2L, Albumin 3.5, Thyroid Stimulating Hormone (TSH) 4.83 04/18/19 14:00: Lactic Acid Level 0.82 04/19/19 09:55: White Blood Count 12.1H, Red Blood Count 4.07L, Hemoglobin 13.0, Hematocrit 39, Mean Corpuscular Volume 95, Mean Corpuscular Hemoglobin 32, Mean Corpuscular Hemoglobin Concent 34, Red Cell Distribution Width 12.6, Platelet Count 402H, Mean Platelet Volume 9.3, Neutrophils (%) (Auto) 57, Lymphocytes (%) (Auto) 26, Monocytes (%) (Auto) 14H, Eosinophils (%) (Auto) 4, Basophils (%) (Auto) 0, Neutrophils # (Auto) 6.9, Lymphocytes # (Auto) 3.1, Monocytes # (Auto) 1.6H, Eosinophils # (Auto) 0.4H, Basophils # (Auto) 0.0 Microbiology 04/16/19 MRSA Screen - Final, Complete MRSA not isolated Assessment/Plan Assessment/Plan Assess & Plan/Chief Complaint BACK PAIN WITH LUMBAR LAMINECTOMY AND PAIN STIMULATOR PLACEMENT NAUSEA ASTHMA ACID REFLUX HYPOKALEMIA HYPERTENSION HYPERTRIGLYCERIDEMIA BACK PAIN WITH LUMBAR LAMINECTOMY AND PAIN STIMULATOR PLACEMENT - POST OP ON 04/15/19 AND 04/16/19 AFTER SHE DEVELOPED AN ACUTE HEMATOMA - THIS WAS REMOVED DURING THE SECOND SURGERY. PT REPORTS THAT PAIN IS STILL PRESENT, BUT BETTER THAN ON ADMISSION. NAUSEA - IMPROVED - ADVISED DTR TO BRING IN CANDIED MICHELLE FOR RHYS TO USE PRIOR TO TAKING ANY PAIN MEDICATIONS TO ATTEMPT TO CALM HER GI TRACT, SINCE NAUSEA IS WHY SHE HAS BEEN UNABLE TO TAKE OTHER MEDICATIONS FOR PAIN BY MOUTH. ASTHMA - CHRONIC AND STABLE. ACID REFLUX - RESTART H2 BLOCKERS. HYPOKALEMIA - LOW YESTERDAY- NO LABS THIS MORNING - REPEAT LABS AND GIVE POTASSIUM IV IF NEEDED. HYPERTENSION - PT ON AMLODIPINE 2.5MG BID- MONITOR PRESSURES, IF CONSISTENTLY ABOVE 150'S, WILL INCREASE TO 5MG BID. HYPERTRIGLYCERIDEMIA - HOLD GEMFIBROZIL FOR NOW. Clinical Quality Measures DVT/VTE Risk/Contraindication: Risk Factor Score Per Nursin RFS Level Per Nursing on Admit: 4+=Very High FILIPE CUEVAS MD Apr 19, 2019 10:32
[2019-04-19 10:58] LABS: BUN/CREATININE RATIO 15; CALCIUM 8.9 MG/DL (8.5-10.1); CARBON DIOXIDE 25 MMOL/L (21-32); CHLORIDE 102 MMOL/L (98-107); CREATININE SERUM 0.65 MG/DL (0.60-1.30); GFR ESTIMATED > 60; GLUCOSE 86 MG/DL (70-105); POTASSIUM 3.6 MMOL/L (3.6-5.0); SODIUM 138 MMOL/L (135-145)
[2019-04-19 12:00] VITALS: BP 148/77
[2019-04-19] MEDS: FAMOTIDINE 20 MG (PEPCID) TABLET PO SCH ×2 (12:14→20:00)
--- NOTE | 2019-04-19 12:41 | NUR ---
IRF Evaluation Order received to evaluate patient for the ARU. Chart review complete and discussed findings with Dr. Dumas - patient accepted. however, upon review of today's PT Progress Note, patient is ambulating (450, 150, FWW) and transferring with modified independence; therefore, the patient does not require intensive therapies, at this time. Dr. Dumas, Dr. Rosenberg and CM/SS notified of this information. Thank you for this referral.
--- NOTE | 2019-04-19 14:38 | NUR ---
CM/SS, respond to consult for continuing post hospital discharge planning. Patient's pending status for IRF transfer was terminated today because of her improved performance with therapies. Discussed short term community SNF placement, reviewed facilities. Patient's first choice is [facility] but only if they have a private/private arrangement. Informed patient that [facility] and [place] would be alternate options for private rooms. Patient to discuss with her daughter Gi sahu, magnetic tape typewriter operator to be updated Monday. Patient history has been one of long-standing sciatica pain, attempted pain management, recent implantation of stimulator, other medical issues. Desires to return home when able. Was working 2 days at [employer] and is on leave from that position. 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 If SNF, CARE Assessment necessary.
--- NOTE | 2019-04-19 15:26 | Occupational Ther Daily Note ---
OT Current Status-Daily Note Subjective Pt alert, lying in bed. Pt agrees to therapy if she can stay in bed since she just got into bed and was tired. No c/o pain at this time. Mental Status/Objective Patient Orientation: Person, Place, Time, Situation Therapy Code Descriptions/Definitions Functional [place] Measure: 0=Not Assessed/NA 4=Minimal Assistance 1=Total Assistance 5=Supervision or Setup 2=Maximal Assistance 6=Modified [place] 3=Moderate Assistance 7=Complete [place] ADL-Treatment Pt requested to use bathroom. Pt mod I for bed mobility. Assist only for IV pole to ambulate using FWW to bathroom and transfer to toilet. Nrsg notified that pt was in bathroom. Pt instructed to use call light to call for nrsg when finished. Other Treatment Pt completed medium resistance theraband exercises with L hand due to R UE's IV site continued to occlude with arm movement. Skills of therapist needed to complete correct technique for exercises. Pt fatigued quickly and requested to stop. OT Short Term Goals Short Term Goals Transfers (B,C,W/C) (FIM): 5 1=Demonstrate adherence to instructed precautions during ADL tasks. 2=Patient will verbalize/demonstrate understanding of assistive devices/modifications for ADL. 3=Patient will improve strength/tolerance for activity to enable patient to perform ADL's. OT Detention Goals Detention Goals Time Frame: Apr 24, 2019 Eating (FIM): 6 Grooming(FIM): 6 Bathing(FIM): 5 Upper Body Dressing(FIM): 5 Lower Body Dressing(FIM): 5 Toileting(FIM): 6 Transfers (B,C,W/C) (FIM): 6 Toilet/Commode Transfer(FIM): 6 Shower Transfer(FIM): 5 Additional Goals: 1-Demonstrate ADL Tasks, 2-Verbalize Understanding, 3- ImproveStrength/Lyndsay 1=Demonstrate adherence to instructed precautions during ADL tasks. 2=Patient will verbalize/demonstrate understanding of assistive devices/modifications for ADL. 3=Patient will improve strength/tolerance for activity to enable patient to perform ADL's. OT Education/Plan Discharge Recommendations Plan/Recommendations: Continue POC Treatment Plan/Plan of Care Patient would benefit from OT for education, treatment and training to promote independence in ADL's, mobility, safety and/or upper extremity function for ADL's. Plan of Care: ADL Retraining, Functional Mobility, UE Funct Exercise/Act Treatment Duration: Apr 24, 2019 Frequency: 5 times per week Estimated Hrs Per Day: .25 hour per day Agreement: Yes Rehab Potential: Fair Time/GCodes Start Time: 11:17 Stop Time: 11:29 Total Time Billed (hr/min): 12 Billed Treatment Time 1 visit-FA 1 (12 min) ENID SHAY Apr 19, 2019 15:26
[2019-04-19 15:57] VITALS: BP 131/63
--- NOTE | 2019-04-19 18:20 | Progress Note-Cardiology ---
Cardiology SOAP Progress Note Subjective: No cp or palp or syncope Gen malaise present Objective: I&O/Vital Signs 04/19/19 04/19/19 04/19/19 04/19/19 07:00 08:00 08:37 12:00 Temp 98.9 98.7 Pulse 97 96 95 Resp 20 20 B/P (MAP) 145/72 (96) 148/77 (100) Pulse Ox 95 96 O2 Delivery Room Air Room Air Room Air 04/19/19 04/19/19 12:36 15:57 Temp 98.0 Pulse 97 88 Resp 22 B/P (MAP) 131/63 (85) Pulse Ox 95 O2 Delivery Room Air 04/19/19 00:00 Intake Total 2515 ml Output Total 2 ml Balance 2513 ml Weight (Pounds): 184 Weight (Ounces): 3.0 Weight (Calculated Kilograms): 83.555676 Constitutional: AAO x 3, well-developed, well-nourished, other (appears weak) Respiratory: No accessory muscle use; other (good bilateral air entry, diminished at the bases) Cardiovascular: regular rate-rhythm, S1 and S2, systolic murmur (soft PRETTY at card base) Gastrointestional: No tender; soft; No guarding, No rebound; audible bowel sounds Extremities: No clubbing, No cyanosis, No significant edema Neurologic/Psychiatric: oriented x 3, other (seems to be able to move all limbs equally) Skin: No rash on exposed areas, No ulcerations on exposed areas Results/Procedures: Labs Laboratory Tests 04/19/19 09:55: White Blood Count 12.1H, Red Blood Count 4.07L, Hemoglobin 13.0, Hematocrit 39, Mean Corpuscular Volume 95, Mean Corpuscular Hemoglobin 32, Mean Corpuscular Hemoglobin Concent 34, Red Cell Distribution Width 12.6, Platelet Count 402H, Mean Platelet Volume 9.3, Neutrophils (%) (Auto) 57, Lymphocytes (%) (Auto) 26, Monocytes (%) (Auto) 14H, Eosinophils (%) (Auto) 4, Basophils (%) (Auto) 0, Neutrophils # (Auto) 6.9, Lymphocytes # (Auto) 3.1, Monocytes # (Auto) 1.6H, Eosinophils # (Auto) 0.4H, Basophils # (Auto) 0.0, Sodium Level 138, Potassium Level 3.6, Chloride Level 102, Carbon Dioxide Level 25, Anion Gap 11, Blood Urea Nitrogen 10, Creatinine 0.65, Estimat Glomerular Filtration Rate > 60, BUN/Creatinine Ratio 15, Glucose Level 86, Calcium Level 8.9, B-Type Natriuretic Peptide 61.7 Microbiology 04/16/19 MRSA Screen - Final, Complete MRSA not isolated A/P: Assessment: Sinus tachycardia, transient low bp, and leucocytosis: Consider sepsis Minimal troponin elevation, likely type 2 [place], due to the above-noted conditions S/p laminectomy (04/15/19), hematoma evac (04/16/19) and SCS electrode revision (04/16/19) Hypokalemia H/o hypertension Chronic mild intermittent leg swelling. DVT w/u in the past has been negative. Segmental pressures of December 2016 did not show evidence of peripheral arterial disease No evidence of myocardial ischemia or infarction and LVEF 67% on MPI of December 2016 Echo of 04/18/19 showed LVEF 65-70%, mild mitral annular calcification, mild conc LVH, grade 1 oates dysfunction, RVSP 20 mmHg Sleep apnea, but non-compliant with therapy Mild COPD and asthma, by history Mild hyperlipidemia, by history Plan: * Reduce iv fluids * Additional K in effort to maintain level around 4 * Monitor labs * I answered her CV-related questions BASSEM ROMERO MD FACP FAC CCDS Apr 19, 2019 18:20
[2019-04-19] MEDS ORDERED: KCL 10 MEQ TAB (MICRO K) PO NR (18:30)
[2019-04-19 19:34] VITALS: BP 133/61
[2019-04-19] MEDS: morphine ER 15 MG (MS CONTIN) TAB PO SCH (20:00)
[2019-04-20 00:06] VITALS: BP 120/65
[2019-04-20 03:44] VITALS: BP 123/73
[2019-04-20] MEDS: ACETAMINOPHEN 325 MG TABLET PO PRN ×2 (03:48→16:40)
[2019-04-20 05:15] LABS: HEMOGLOBIN 11.9 G/DL (11.5-16.0); MEAN PLATELET VOLUME 9.2 FL (7.4-10.4); RED CELL DISTRIBUTION WIDTH 12.6 % (10.0-14.5); WHITE BLOOD COUNT 10.2 10^3/uL (4.3-11.0)
[2019-04-20 05:32] LABS: ALANINE AMINOTRANSFERASE 23 U/L (0-55); ALBUMIN 3.3 GM/DL (3.2-4.5); ALKALINE PHOSPHATASE 88 U/L (40-136); BILIRUBIN,TOTAL 0.5 MG/DL (0.1-1.0); BUN/CREATININE RATIO 12; CARBON DIOXIDE 26 MMOL/L (21-32); CHLORIDE 102 MMOL/L (98-107); GFR ESTIMATED > 60; GLUCOSE 97 MG/DL (70-105); POTASSIUM 3.3 MMOL/L (3.6-5.0); SODIUM 138 MMOL/L (135-145); TOTAL PROTEIN 5.9 GM/DL (6.4-8.2)
[2019-04-20 08:00] VITALS: BP 142/92
[2019-04-20] MEDS ORDERED: GLYCERIN ADULT SUPPOSITORY PR PRN (09:00)
--- NOTE | 2019-04-20 09:52 | Progress Note (SOAP) ---
Subjective Date Seen by a Provider: Apr 20, 2019 Time Seen by a Provider: 09:51 Subjective/Events-last exam Sciatica better, no leg pain, abdomen still very sore, but improving. Focused Exam Lactate Level 04/18/19 14:00: Lactic Acid Level 0.82 Objective Exam Vital Signs Date Time Temp Pulse Resp B/P (MAP) Pulse Ox O2 Delivery O2 Flow Rate FiO2 04/20/19 08:00 97.0 89 20 142/92 (109) 97 Room Air 04/20/19 03:48 99.4 04/20/19 03:44 99.4 88 20 123/73 (90) 90 Room Air 04/20/19 01:00 91 04/20/19 00:06 98.3 94 20 120/65 (83) 93 Room Air 04/19/19 20:00 Room Air 04/19/19 19:34 97.8 89 20 133/61 (85) 95 Room Air 04/19/19 19:00 104 04/19/19 15:57 98.0 88 22 131/63 (85) 95 Room Air 04/19/19 12:36 97 04/19/19 12:00 98.7 95 20 148/77 (100) 96 Room Air I & O 04/20/19 07:00 Intake Total 2690 ml Balance 2690 ml Capillary Refill : Less Than 3 Seconds General Appearance: No Apparent Distress Cardiovascular: Regular Rate, Rhythm Extremity: Normal Capillary Refill, Normal Inspection, No Calf Tenderness Neurologic/Psychiatric: Alert, Oriented x3, No Motor/Sensory Deficits Results Lab Laboratory Tests 04/19/19 09:55: White Blood Count 12.1H, Red Blood Count 4.07L, Hemoglobin 13.0, Hematocrit 39, Mean Corpuscular Volume 95, Mean Corpuscular Hemoglobin 32, Mean Corpuscular Hemoglobin Concent 34, Red Cell Distribution Width 12.6, Platelet Count 402H, Mean Platelet Volume 9.3, Neutrophils (%) (Auto) 57, Lymphocytes (%) (Auto) 26, Monocytes (%) (Auto) 14H, Eosinophils (%) (Auto) 4, Basophils (%) (Auto) 0, Neutrophils # (Auto) 6.9, Lymphocytes # (Auto) 3.1, Monocytes # (Auto) 1.6H, Eosinophils # (Auto) 0.4H, Basophils # (Auto) 0.0, Sodium Level 138, Potassium Level 3.6, Chloride Level 102, Carbon Dioxide Level 25, Anion Gap 11, Blood Urea Nitrogen 10, Creatinine 0.65, Estimat Glomerular Filtration Rate > 60, BU N/Creatinine Ratio 15, Glucose Level 86, Calcium Level 8.9, B-Type Natriuretic Peptide 61.7 04/20/19 04:49: White Blood Count 10.2, Red Blood Count 3.88L, Hemoglobin 11.9, Hematocrit 37, Mean Corpuscular Volume 94, Mean Corpuscular Hemoglobin 31, Mean Corpuscular Hemoglobin Concent 33, Red Cell Distribution Width 12.6, Platelet Count 423H, Mean Platelet Volume 9.2, Sodium Level 138, Potassium Level 3.3L, Chloride Level 102, Carbon Dioxide Level 26, Anion Gap 10, Blood Urea Nitrogen 7, Creatinine 0.60, Estimat Glomerular Filtration Rate > 60, BUN/Creatinine Ratio 12, Glucose Level 97, Calcium Level 9.0, Corrected Calcium 9.6, Total Bilirubin 0.5, Aspartate Amino Transf (AST/SGOT) 36H, Alanine Aminotransferase (ALT/SGPT) 23, Alkaline Phosphatase 88, Total Protein 5.9L, Albumin 3.3 Microbiology 04/16/19 MRSA Screen - Final, Complete MRSA not isolated Assessment/Plan Assessment/Plan Assess & Plan/Chief Complaint S/P Revision PSCS with postoperative thoracic radiculopathy and compression Plan, Continue current care and plan d/c to snf on Monday. Clinical Quality Measures Admission Status Admission Dx Thoracic Radiculopathy due to Paddle lead Will plan revision. Conversion to Slim leads. DVT/VTE Risk/Contraindication: Risk Factor Score Per Nursin RFS Level Per Nursing on Admit: 4+=Very High MEHUL MIGUEL MD Apr 20, 2019 09:52
[2019-04-20] MEDS: SENNA W/DOCUSATE (SENOKOT S) TABLET PO SCH ×2 (10:41→20:25)
[2019-04-20] MEDS: GABAPENTIN 300 MG (NEURONTIN) CAP PO SCH ×3 (10:41→20:25)
[2019-04-20] MEDS: amLODIPine 2.5MG (NORVASC) TAB PO SCH ×2 (10:41→20:25)
[2019-04-20] MEDS: FAMOTIDINE 20 MG (PEPCID) TABLET PO SCH (10:41)
[2019-04-20] MEDS: morphine ER 15 MG (MS CONTIN) TAB PO SCH ×2 (10:42→20:25)
[2019-04-20] MEDS: PARoxetine 10 MG (PAXIL) TAB PO SCH (10:42)
[2019-04-20] MEDS: VALACYCLOVIR 500 MG TAB (VALTREX) PO SCH ×2 (10:42→20:26)
[2019-04-20] MEDS: MULTIVIT W/MINERALS TAB (THERAGRAN M) PO SCH (10:42)
[2019-04-20] MEDS: morphine INJ 4 MG/ML 1 ML (VIAL/SYRINGE) IV PRN ×2 (11:30→20:25)
[2019-04-20 12:00] VITALS: BP 124/80
--- NOTE | 2019-04-20 12:37 | Physical Therapy Daily Note ---
PT Daily Note-Current Subjective Agrees to PT. Reports she would like to toilet Transfers Therapy Code Descriptions/Definitions Functional [place] Measure: 0=Not Assessed/NA 4=Minimal Assistance 1=Total Assistance 5=Supervision or Setup 2=Maximal Assistance 6=Modified [place] 3=Moderate Assistance 7=Complete [place] Therapy Quality Codes: 6 Independent with activity with or without an assistive device 5 Patient requires set up or clean up by helper. Patient completes activity by themselves 4 Supervision or touching assist (CGA). [place] provide cues , steadying assist 3 The helper provides less than half the effort to complete the activity 2 The helper provides more than half the effort to complete the activity 1 Dependent. The helper does all the effort to complete an activity 7 Patient refused to complete or attempt activity 9 The patient did not perform the activity before the current illness or injury 88 Not attempted due to Medical conditions or safety concerns Weight Bearing Right Lower Extremity: Right Full Weight Bearing Left Lower Extremity: Left Full Weight Bearing Treatments SBA with bed mobilty and sit to stand. Pt toileted with SBA and stood at sink to wash her hands. Pt then walked x 200 ft with FWW with SBA. Slow gait with decreased step length. Pt in bed post treatment with needs met. Assessment Current Status: Good Progress Safe with functional mobiltiy. PT Short Term Goals Short Term Goals Time Frame: Apr 24, 2019 Transfers (B,C,W/C) (FIM): 5 Gait (FIM): 5 Gait Distance Comment: 150' Gait Level of Assist: 5 Gait Assistive Device: FWW PT Plan Problem List Problem List: Activity Tolerance, Functional Strength, Safety Treatment/Plan Treatment Plan: Continue Plan of Care Treatment Plan: Bed Mobility, Education, Functional Activity Lyndsay, Functional Strength, Gait, Safety, Therapeutic Exercise, Transfers Treatment Duration: Apr 24, 2019 Frequency: 6 times per week Estimated Hrs Per Day: .25 hour per day Patient and/or Family Agrees t: Yes Safety Risks/Education Patient Education: Safety Issues Teaching Recipient: Patient Teaching Methods: Discussion Response to Teaching: Reinforcement Needed Time/GCodes Time In: 1135 Time Out: 1200 Total Billed Treatment Time: 25 Total Billed Treatment visit FA 25 ENID MENDES PT Apr 20, 2019 12:37
--- NOTE | 2019-04-20 12:39 | Progress Note-Hospitalist ---
Subjective HPI/CC On Admission Date Seen by Provider: Apr 20, 2019 Time Seen by Provider: 10:45 Chief complaint: Heart racing History of present illness: This is an 78-year-old white female Dr. Rosenberg who underwent extensive lumbar laminectomy along with pain stimulator placement by Dr. Mark who had been doing pretty well in recovery but remains uncomfortable who started experiencing heart racing that she's never had before. Heart rate was 150 at nursing assessment she called me I consulted cardiology and ordered EKG and stat labs and likely patient will need to go to ICU for new onset atrial fibrillation with rapid ventricular response. This current time patient denies any chest pain but she hasn't been feeling well today feeling weak and just overall not feeling well. We were in the midst of evaluated her for inpatient rehabilitation for the first week. Patient has never had any heart related issues and just feels uncomfortable in her back. Subjective/Events-last exam Patient doing much better today Low potassium noted so we will supplement potassium chloride 10 M EQ 3 times daily for 2 days Request glycerin suppositories since others do not really work for her Pain is pretty well controlled Daughter at the bedside who works for hospice Check meds and labs Overall much improved No further tachycardia episodes noted Review of Systems Gastrointestinal: Constipation Musculoskeletal: back pain Focused Exam Lactate Level 04/18/19 14:00: Lactic Acid Level 0.82 Objective Exam Vital Signs Vital Signs Date Time Temp Pulse Resp B/P (MAP) Pulse Ox O2 Delivery O2 Flow Rate FiO2 04/20/19 16:40 99.0 04/20/19 15:43 89 22 165/79 (107) 96 Room Air 04/20/19 08:00 0.00 Capillary Refill : Less Than 3 Seconds General Appearance: No Apparent Distress, WD/WN, Chronically ill HEENT: PERRL/EOMI, Normal ENT Inspection, Pharynx Normal Neck: Full Range of Motion, Normal Inspection, Non Tender, Supple Respiratory: Chest Non Tender, Lungs Clear, Normal Breath Sounds, No Accessory Muscle Use, No Respiratory Distress Cardiovascular: Regular Rate, Rhythm Gastrointestinal: Normal Bowel Sounds, No Organomegaly, No Pulsatile Mass, Non Tender, Soft Back: Decreased Range of Motion Extremity: Normal Capillary Refill, Normal Inspection, No Calf Tenderness Neurologic/Psychiatric: Alert, Oriented x3, No Motor/Sensory Deficits, Normal Mood/Affect, director 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 Assessment/Plan Assessment and Plan Assess & Plan/Chief Complaint Assessment: Acute onset of tachycardia 04/18/19 Recent lumbar laminectomy with pain stimulator placement POD # 3 Asthma Hypertension Hypertriglyceridemia Constipation Plan: Replace potassium BM regimen Check labs Monitor closely Diagnosis/Problems Diagnosis/Problems (1) Palpitations Status: Resolved Resolution Date/Time: 04/20/19 @ 17:31 (2) Tachycardia Status: Resolved Resolution Date/Time: 04/20/19 @ 17:31 (3) Asthma Status: Chronic Qualifiers: Asthma severity: mild Asthma persistence: intermittent Asthma complication type: unspecified Qualified Codes: J45.20 - Mild intermittent asthma, uncomplicated (4) Hypotension Status: Resolved Qualifiers: Hypotension type: unspecified hypotension type Qualified Codes: I95.9 - Hypotension, unspecified Resolution Date/Time: 04/20/19 @ 17:31 (5) S/P laminectomy Status: Acute (6) S/P insertion of spinal cord stimulator Status: Acute (7) Radicular pain of thoracic region Status: Acute (8) Post-op pain Status: Acute (9) Lumbago Status: Chronic Qualifiers: Chronicity: chronic Back pain laterality: unspecified Sciatica presence: unspecified whether sciatica present Qualified Codes: M54.5 - Low back pain; G89.29 - Other chronic pain (10) Hypokalemia Status: Acute (11) Constipation Qualifiers: Constipation type: slow transit constipation Qualified Codes: K59.01 - S low transit constipation Clinical Quality Measures DVT/VTE Risk/Contraindication: Risk Factor Score Per Nursin RFS Level Per Nursing on Admit: 4+=Very High STAR CANCHOLA DO Apr 20, 2019 12:39
[2019-04-20] MEDS: KCL 10 MEQ TAB (MICRO K) PO SCH ×2 (13:55→17:57)
--- NOTE | 2019-04-20 15:00 | Progress Note-Cardiology ---
Cardiology SOAP Progress Note Subjective: No cp or palp or syncope Gen malaise has improved somewhat Objective: I&O/Vital Signs 04/20/19 04/20/19 04/20/19 04/20/19 03:44 03:48 07:00 08:00 Temp 99.4 99.4 97.0 Pulse 88 79 89 Resp 20 20 B/P (MAP) 123/73 (90) 142/92 (109) Pulse Ox 90 97 O2 Delivery Room Air Room Air 04/20/19 04/20/19 04/20/19 04/20/19 08:00 12:00 13:00 13:00 Temp 98.7 Pulse 88 88 90 Resp 20 B/P (MAP) 124/80 (95) Pulse Ox 97 94 O2 Delivery Room Air Room Air O2 Flow Rate 0.00 04/20/19 00:00 Intake Total 2440 ml Balance 2440 ml Weight (Pounds): 184 Weight (Ounces): 3.0 Weight (Calculated Kilograms): 83.388955 Constitutional: AAO x 3, well-developed, well-nourished, other (appears weak) Respiratory: No accessory muscle use; other (good bilateral air entry, diminished at the bases) Cardiovascular: regular rate-rhythm, S1 and S2, systolic murmur (soft PRETTY at card base) Gastrointestional: No tender; soft; No guarding, No rebound; audible bowel sounds Extremities: No clubbing, No cyanosis, No significant edema Neurologic/Psychiatric: oriented x 3, other (seems to be able to move all limbs equally) Skin: No rash on exposed areas, No ulcerations on exposed areas Results/Procedures: Labs Laboratory Tests 04/20/19 04:49: White Blood Count 10.2, Red Blood Count 3.88L, Hemoglobin 11.9, Hematocrit 37, Mean Corpuscular Volume 94, Mean Corpuscular Hemoglobin 31, Mean Corpuscular Hemoglobin Concent 33, Red Cell Distribution Width 12.6, Platelet Count 423H, Mean Platelet Volume 9.2, Sodium Level 138, Potassium Level 3.3L, Chloride Level 102, Carbon Dioxide Level 26, Anion Gap 10, Blood Urea Nitrogen 7, Creatinine 0.60, Estimat Glomerular Filtration Rate > 60, BUN/Creatinine Ratio 12, Glucose Level 97, Calcium Level 9.0, Corrected Calcium 9.6, Total Bilirubin 0.5, Aspartate Amino Transf (AST/SGOT) 36H, Alanine Aminotransferase (ALT/SGPT) 23, Alkaline Phosphatase 88, Total Protein 5.9L, Albumin 3.3 Microbiology 04/16/19 MRSA Screen - Final, Complete MRSA not isolated Laboratory Tests 04/19/19 09:55 04/20/19 04:49 A/P: Assessment: Sinus tachycardia, transient low bp, and leucocytosis: Consider sepsis Minimal troponin elevation, likely type 2 CT, due to the above-noted conditions S/p laminectomy (04/15/19), hematoma evac (04/16/19) and SCS electrode revision (04/16/19) Hypokalemia H/o hypertension Chronic mild intermittent leg swelling. DVT w/u in the past has been negative. Segmental pressures of December 2016 did not show evidence of peripheral arterial disease No evidence of myocardial ischemia or infarction and LVEF 67% on MPI of December 2016 Echo of 04/18/19 showed LVEF 65-70%, mild mitral annular calcification, mild conc LVH, grade 1 oates dysfunction, RVSP 20 mmHg Sleep apnea, but non-compliant with therapy Mild COPD and asthma, by history Mild hyperlipidemia, by history Plan: * Reduce iv fluids * Replenish K * Monitor labs * I answered her CV-related questions BASSEM ROMERO MD FACP FAC CCDS Apr 20, 2019 15:00
[2019-04-20] MEDS: NS IV 1000 ML 1,000 ML IV SCH (15:39)
[2019-04-20 15:43] VITALS: BP 165/79
[2019-04-20 20:21] VITALS: BP 136/72
[2019-04-21] VITALS: BP 157/73
[2019-04-21] MEDS: morphine INJ 4 MG/ML 1 ML (VIAL/SYRINGE) IV PRN (03:21)
[2019-04-21 04:00] VITALS: BP 132/74
[2019-04-21 05:17] LABS: HEMOGLOBIN 12.2 G/DL (11.5-16.0); MEAN PLATELET VOLUME 9.1 FL (7.4-10.4); RED CELL DISTRIBUTION WIDTH 12.5 % (10.0-14.5); WHITE BLOOD COUNT 10.4 10^3/uL (4.3-11.0)
[2019-04-21 05:32] LABS: ALANINE AMINOTRANSFERASE 21 U/L (0-55); ALBUMIN 3.4 GM/DL (3.2-4.5); ALKALINE PHOSPHATASE 87 U/L (40-136); BILIRUBIN,TOTAL 0.4 MG/DL (0.1-1.0); BUN/CREATININE RATIO 10; CALCIUM 9.2 MG/DL (8.5-10.1); CARBON DIOXIDE 26 MMOL/L (21-32); CHLORIDE 102 MMOL/L (98-107); GFR ESTIMATED > 60; GLUCOSE 101 MG/DL (70-105); POTASSIUM 3.5 MMOL/L (3.6-5.0); SODIUM 140 MMOL/L (135-145)
[2019-04-21] MEDS: MULTIVIT W/MINERALS TAB (THERAGRAN M) PO SCH (06:55)
[2019-04-21 08:00] VITALS: BP 138/72
[2019-04-21] MEDS: VALACYCLOVIR 500 MG TAB (VALTREX) PO SCH ×2 (09:22→21:06)
[2019-04-21] MEDS: amLODIPine 2.5MG (NORVASC) TAB PO SCH ×2 (09:22→21:06)
[2019-04-21] MEDS: morphine ER 15 MG (MS CONTIN) TAB PO SCH ×2 (09:22→21:07)
[2019-04-21] MEDS: KCL 10 MEQ TAB (MICRO K) PO SCH ×3 (09:22→18:37)
[2019-04-21] MEDS: PARoxetine 10 MG (PAXIL) TAB PO SCH (09:22)
[2019-04-21] MEDS: SENNA W/DOCUSATE (SENOKOT S) TABLET PO SCH ×2 (09:22→21:11)
[2019-04-21] MEDS: FAMOTIDINE 20 MG (PEPCID) TABLET PO SCH (09:22)
[2019-04-21] MEDS: GABAPENTIN 300 MG (NEURONTIN) CAP PO SCH ×3 (09:22→21:06)
[2019-04-21] MEDS: ALPRAZolam 0.25 MG (XANAX) TAB PO PRN ×4 (09:32→21:06)
--- NOTE | 2019-04-21 10:57 | Progress Note (SOAP) ---
Subjective Date Seen by a Provider: Apr 21, 2019 Time Seen by a Provider: 10:54 Subjective/Events-last exam s/p scs placement. Reports thoracic radicular symptoms that are labile, pain is controlled with analgesia. Denies le pain, weakness or numbness Review of Systems General: No Chills, No Night Sweats HEENT: No Head Aches Pulmonary: No Dyspnea, No Cough Cardiovascular: No: Chest Pain, Palpitations Gastrointestinal: Abdominal Pain; No: Nausea, Vomiting Genitourinary: No Dysuria, No Incontinence Musculoskeletal: back pain Neurological: No: Weakness, Numbness Focused Exam Lactate Level 04/18/19 14:00: Lactic Acid Level 0.82 Objective Exam Vital Signs Date Time Temp Pulse Resp B/P (MAP) Pulse Ox O2 Delivery O2 Flow Rate FiO2 04/21/19 08:00 98.4 88 18 138/72 (94) 93 Room Air 04/21/19 07:00 96 04/21/19 04:00 97.7 91 18 132/74 (93) 94 Room Air 04/21/19 01:00 90 04/21/19 00:00 98.9 96 20 157/73 (101) 94 Room Air 04/20/19 20:21 98.9 80 20 136/72 (93) 95 Room Air 04/20/19 20:00 97 Room Air 0.00 04/20/19 19:00 86 04/20/19 16:40 99.0 04/20/19 15:43 99.0 89 22 165/79 (107) 96 Room Air 04/20/19 13:00 90 04/20/19 13:00 88 04/20/19 12:00 98.7 88 20 124/80 (95) 94 Room Air I & O 04/21/19 07:00 Intake Total 3581 ml Balance 3581 ml Capillary Refill : Less Than 3 Seconds General Appearance: No Apparent Distress Neck: Full Range of Motion Respiratory: No Chest Non Tender, No Normal Breath Sounds Gastrointestinal: No normal bowel sounds, No non tender Extremity: No Normal Inspection, No Non Tender, No No Calf Tenderness Neurologic/Psychiatric: Alert, Oriented x3 Results Lab Laboratory Tests 04/21/19 05:03: White Blood Count 10.4, Red Blood Count 3.89L, Hemoglobin 12.2, Hematocrit 36, Mean Corpuscular Volume 93, Mean Corpuscular Hemoglobin 31, Mean Corpuscular Hemoglobin Concent 34, Red Cell Distribution Width 12.5, Platelet Count 433H, Mean Platelet Volume 9.1, Sodium Level 140, Potassium Level 3.5L, Chloride Level 102, Carbon Dioxide Level 26, Anion Gap 12, Blood Urea Nitrogen 6L, Creatinine 0.60, Estimat Glomerular Filtration Rate > 60, BUN/Creatinine Ratio 10, Glucose Level 101, Calcium Level 9.2, Corrected Calcium 9.7, Total Bilirubin 0.4, Aspartate Amino Transf (AST/SGOT) 17, Alanine Aminotransferase (ALT/SGPT) 21, Alkaline Phosphatase 87, Total Protein 6.0L, Albumin 3.4 Microbiology 04/16/19 MRSA Screen - Final, Complete MRSA not isolated Assessment/Plan Assessment/Plan Assess & Plan/Chief Complaint assessment: s/p scs placement with subsequent revision plan: continue current care dismiss to snf tomorrow Clinical Quality Measures DVT/VTE Risk/Contraindication: Risk Factor Score Per Nursin RFS Level Per Nursing on Admit: 4+=Very High ANITA OSMAN Apr 21, 2019 10:57
[2019-04-21 12:00] VITALS: BP 151/78
--- NOTE | 2019-04-21 13:30 | Progress Note-Hospitalist ---
Subjective HPI/CC On Admission Date Seen by Provider: Apr 21, 2019 Time Seen by Provider: 12:45 Chief complaint: Heart racing History of present illness: This is an 78-year-old white female Dr. Rosenberg who underwent extensive lumbar laminectomy along with pain stimulator placement by Dr. Mark who had been doing pretty well in recovery but remains uncomfortable who started experiencing heart racing that she's never had before. Heart rate was 150 at nursing assessment she called me I consulted cardiology and ordered EKG and stat labs and likely patient will need to go to ICU for new onset atrial fibrillation with rapid ventricular response. This current time patient denies any chest pain but she hasn't been feeling well today feeling weak and just overall not feeling well. We were in the midst of evaluated her for inpatient rehabilitation for the first week. Patient has never had any heart related issues and just feels uncomfortable in her back. Subjective/Events-last exam Xanax required due to anxiety this morning Enema x2 has not given any results and daughter who is a nurse reports she has a rectocele so that may not even be successful We will continue oral meds for today and not damage any rectal tissue and await for primary care provider to manage the severe constipation at her request Not really eating much anyway Pain is well controlled now Using incentive spirometer No further tachycardia episodes Review of Systems General: Fatigue Gastrointestinal: Constipation Musculoskeletal: back pain Focused Exam Lactate Level Objective Exam Vital Signs Vital Signs Date Time Temp Pulse Resp B/P (MAP) Pulse Ox O2 Delivery O2 Flow Rate FiO2 04/21/19 15:55 98.1 95 20 130/70 (90) 94 Room Air 04/21/19 09:00 0.00 Capillary Refill : Less Than 3 Seconds General Appearance: No Apparent Distress HEENT: PERRL/EOMI, Normal ENT Inspection, Pharynx Normal Neck: Full Range of Motion Respiratory: No Chest Non Tender, No Normal Breath Sounds Cardiovascular: Regular Rate, Rhythm Gastrointestinal: Normal Bowel Sounds, No Organomegaly, No Pulsatile Mass, Non Tender, Soft Back: Decreased Range of Motion Extremity: No Normal Inspection, No Non Tender, No No Calf Tenderness Neurologic/Psychiatric: Alert, Oriented x3 Skin: Other (incisions CDI) Lymphatic: No Adenopathy Results/Procedures Lab Laboratory Tests 04/21/19 05:03 Patient resulted labs reviewed. Assessment/Plan Assessment and Plan Assess & Plan/Chief Complaint Assessment: Acute onset of tachycardia 04/18/19 Recent lumbar laminectomy with pain stimulator placement POD # 4 Asthma Hypertension Hypertriglyceridemia Constipation Plan: Replace potassium BM regimen Check labs Monitor closely Diagnosis/Problems Diagnosis/Problems (1) Palpitations Status: Resolved Resolution Date/Time: 04/20/19 @ 17:31 (2) Tachycardia Status: Resolved Resolution Date/Time: 04/20/19 @ 17:31 (3) Asthma Status: Chronic Qualifiers: Asthma severity: mild Asthma persistence: intermittent Asthma complication type: unspecified Qualified Codes: J45.20 - Mild intermittent asthma, uncomplicated (4) Hypotension Status: Resolved Qualifiers: Hypotension type: unspecified hypotension type Qualified Codes: I95.9 - Hypotension, unspecified Resolution Date/Time: 04/20/19 @ 17:31 (5) S/P laminectomy Status: Acute (6) S/P insertion of spinal cord stimulator Status: Acute (7) Radicular pain of thoracic region Status: Acute (8) Post-op pain Status: Acute (9) Lumbago Status: Chronic Qualifiers: Chronicity: chronic Back pain laterality: unspecified Sciatica presence: unspecified whether sciatica present Qualified Codes: M54.5 - Low back pain; G89.29 - Other chronic pain (10) Hypokalemia Status: Acute (11) Constipation Qualifiers: Constipation type: slow transit constipation Qualified Codes: K59.01 - Slow transit constipation Clinical Quality Measures DVT/VTE Risk/Contraindication: Risk Factor Score Per Nursin RFS Level Per Nursing on Admit: 4+=Very High STAR CANCHOLA DO Apr 21, 2019 13:30
[2019-04-21 15:55] VITALS: BP 130/70
--- NOTE | 2019-04-21 16:03 | Progress Note-Cardiology ---
Cardiology SOAP Progress Note Subjective: No cp or palp or syncope Gen weakness and malaise Objective: I&O/Vital Signs 04/21/19 04/21/19 04/21/19 04/21/19 07:00 08:00 09:00 12:00 Temp 98.4 97.9 Pulse 96 88 86 Resp 18 18 B/P (MAP) 138/72 (94) 151/78 (102) Pulse Ox 93 97 95 O2 Delivery Room Air Room Air Room Air O2 Flow Rate 0.00 04/21/19 04/21/19 13:00 15:55 Temp 98.1 Pulse 96 95 Resp 20 B/P (MAP) 130/70 (90) Pulse Ox 94 O2 Delivery Room Air 04/21/19 00:00 Intake Total 2781 ml Balance 2781 ml Weight (Pounds): 184 Weight (Ounces): 3.0 Weight (Calculated Kilograms): 83.345856 Constitutional: AAO x 3, well-developed, well-nourished, other (appears weak) Respiratory: No accessory muscle use; other (good bilateral air entry, diminished at the bases) Cardiovascular: regular rate-rhythm, S1 and S2, systolic murmur (soft PRETTY at card base) Gastrointestional: No tender; soft; No guarding, No rebound; audible bowel sounds Extremities: No clubbing, No cyanosis, No significant edema Neurologic/Psychiatric: oriented x 3, other (seems to be able to move all limbs equally) Skin: No rash on exposed areas, No ulcerations on exposed areas Results/Procedures: Labs Laboratory Tests 04/21/19 05:03: White Blood Count 10.4, Red Blood Count 3.89L, Hemoglobin 12.2, Hematocrit 36, Mean Corpuscular Volume 93, Mean Corpuscular Hemoglobin 31, Mean Corpuscular Hemoglobin Concent 34, Red Cell Distribution Width 12.5, Platelet Count 433H, Mean Platelet Volume 9.1, Sodium Level 140, Potassium Level 3.5L, Chloride Level 102, Carbon Dioxide Level 26, Anion Gap 12, Blood Urea Nitrogen 6L, Creatinine 0.60, Estimat Glomerular Filtration Rate > 60, BUN/Creatinine Ratio 10, Glucose Level 101, Calcium Level 9.2, Corrected Calcium 9.7, Total Bilirubin 0.4, Aspartate Amino Transf (AST/SGOT) 17, Alanine Aminotransferase (ALT/SGPT) 21, Al kaline Phosphatase 87, Total Protein 6.0L, Albumin 3.4 Microbiology 04/16/19 MRSA Screen - Final, Complete MRSA not isolated Laboratory Tests 04/20/19 04:49 04/21/19 05:03 A/P: Assessment: Sinus tachycardia, transient low bp, and leucocytosis: Consider sepsis Minimal troponin elevation, likely type 2 MA, due to the above-noted conditions S/p laminectomy (04/15/19), hematoma evac (04/16/19) and SCS electrode revision (04/16/19) Hypokalemia H/o hypertension Chronic mild intermittent leg swelling. DVT w/u in the past has been negative. Segmental pressures of December 2016 did not show evidence of peripheral arterial disease No evidence of myocardial ischemia or infarction and LVEF 67% on MPI of December 2016 Echo of 04/18/19 showed LVEF 65-70%, mild mitral annular calcification, mild conc LVH, grade 1 oates dysfunction, RVSP 20 mmHg Sleep apnea, but non-compliant with therapy Mild COPD and asthma, by history Mild hyperlipidemia, by history Plan: * Replenish K * Monitor labs * I answered her CV-related questions BASSEM ROMERO MD FACP FAC CCDS Apr 21, 2019 16:03
[2019-04-21] MEDS: NS IV 1000 ML 1,000 ML IV SCH (16:30)
[2019-04-21 19:57] VITALS: BP 150/82
[2019-04-22] VITALS: BP 135/60
[2019-04-22 04:00] VITALS: BP 141/66
[2019-04-22 06:01] LABS: HEMOGLOBIN 12.1 G/DL (11.5-16.0); MEAN PLATELET VOLUME 9.1 FL (7.4-10.4); RED CELL DISTRIBUTION WIDTH 12.7 % (10.0-14.5); WHITE BLOOD COUNT 10.2 10^3/uL (4.3-11.0)
[2019-04-22 06:11] LABS: ALANINE AMINOTRANSFERASE 18 U/L (0-55); ALBUMIN 3.5 GM/DL (3.2-4.5); ALKALINE PHOSPHATASE 90 U/L (40-136); BILIRUBIN,TOTAL 0.4 MG/DL (0.1-1.0); BUN/CREATININE RATIO 8; CALCIUM 9.2 MG/DL (8.5-10.1); CARBON DIOXIDE 28 MMOL/L (21-32); CHLORIDE 101 MMOL/L (98-107); CREATININE SERUM 0.61 MG/DL (0.60-1.30); GFR ESTIMATED > 60; GLUCOSE 97 MG/DL (70-105); POTASSIUM 3.4 MMOL/L (3.6-5.0); SODIUM 139 MMOL/L (135-145); TOTAL PROTEIN 6.2 GM/DL (6.4-8.2)
[2019-04-22] MEDS: MULTIVIT W/MINERALS TAB (THERAGRAN M) PO SCH (06:33)
[2019-04-22 08:00] VITALS: BP_SYST 127; BP_SYST 128; BP_DIAS 74; BP_DIAS 75
--- NOTE | 2019-04-22 08:03 | Progress Note (SOAP) ---
Subjective Date Seen by a Provider: Apr 22, 2019 Time Seen by a Provider: 08:02 Subjective/Events-last exam Legs still feel good, but no BM. Otherwise pretty good, ready to go somewhere if she had BM. Objective Exam Vital Signs Date Time Temp Pulse Resp B/P (MAP) Pulse Ox O2 Delivery O2 Flow Rate FiO2 04/22/19 07:00 97 04/22/19 04:00 97.6 91 20 141/66 (91) 93 Room Air 04/22/19 01:00 82 04/22/19 00:00 98.9 89 18 135/60 (85) 92 Room Air 04/21/19 21:00 92 Room Air 0.00 04/21/19 19:57 99.2 90 20 150/82 (104) 97 Room Air 04/21/19 19:00 102 04/21/19 15:55 98.1 95 20 130/70 (90) 94 Room Air 04/21/19 13:00 96 04/21/19 12:00 97.9 86 18 151/78 (102) 95 Room Air 04/21/19 09:00 97 Room Air 0.00 I & O 04/22/19 07:00 Intake Total 2660 ml Balance 2660 ml Capillary Refill : Less Than 3 Seconds General Appearance: No Apparent Distress Respiratory: No Accessory Muscle Use, No Respiratory Distress Cardiovascular: Normal Peripheral Pulses Gastrointestinal: non tender, soft, other (mildly distended) Neurologic/Psychiatric: Alert, Oriented x3, No Motor/Sensory Deficits Results Lab Laboratory Tests 04/22/19 05:00: White Blood Count 10.2, Red Blood Count 3.86L, Hemoglobin 12.1, Hematocrit 36, Mean Corpuscular Volume 94, Mean Corpuscular Hemoglobin 31, Mean Corpuscular Hemoglobin Concent 33, Red Cell Distribution Width 12.7, Platelet Count 468H, Mean Platelet Volume 9.1, Sodium Level 139, Potassium Level 3.4L, Chloride Level 101, Carbon Dioxide Level 28, Anion Gap 10, Blood Urea Nitrogen 5L, Creatinine 0.61, Estimat Glomerular Filtration Rate > 60, BUN/Creatinine Ratio 8, Glucose Level 97, Calcium Level 9.2, Corrected Calcium 9.6, Total Bilirubin 0.4, Aspartate Amino Transf (AST/SGOT) 15, Alanine Aminotransferase (ALT/SGPT) 18, Alkaline Phosphatase 90, Total Protein 6.2L, Albumin 3.5 Microbiology 04/16/19 MRSA Screen - Final, Complete MRSA not isolated Assessment/Plan Assessment/Plan Assess & Plan/Chief Complaint S/P Revision PSCS with postoperative thoracic radiculopathy and compression Constipation Plan, Work on BM, possible d/c Clinical Quality Measures Admission Status Admission Dx Thoracic Radiculopathy due to Paddle lead Will plan revision. Conversion to Slim leads. DVT/VTE Risk/Contraindication: Risk Factor Score Per Nursin RFS Level Per Nursing on Admit: 4+=Very High MEHUL MIGUEL MD Apr 22, 2019 08:03
--- NOTE | 2019-04-22 08:36 | Progress Note ---
Subjective Date Seen by a Provider: Apr 22, 2019 Time Seen by a Provider: 08:40 Objective Exam Last Set of Vital Signs Vital Signs Date Time Temp Pulse Resp B/P (MAP) Pulse Ox O2 Delivery O2 Flow Rate FiO2 04/22/19 07:00 97 04/22/19 04:00 97.6 20 141/66 (91) 93 Room Air 04/21/19 21:00 0.00 Capillary Refill : Less Than 3 Seconds I&O Intake and Output 04/22/19 00:00 Intake Total 2960 ml Balance 2960 ml Intake Oral 2960 ml # Voids 11 General: Alert, Oriented X3, Cooperative, No Acute Distress HEENT: Atraumatic, PERRLA Neck: Supple Lungs: Clear to Auscultation, Normal Air Movement Heart: Regular Rate Abdomen: Normal Bowel Sounds, Soft, No Tenderness Extremities: No Clubbing Skin: No Rashes, No Breakdown Neuro: Cranial Nerves 3-12 NL Psych/Mental Status: Mental Status NL, Mood NL Results Lab Laboratory Tests 04/22/19 05:00: White Blood Count 10.2, Red Blood Count 3.86L, Hemoglobin 12.1, Hematocrit 36, Mean Corpuscular Volume 94, Mean Corpuscular Hemoglobin 31, Mean Corpuscular Hemoglobin Concent 33, Red Cell Distribution Width 12.7, Platelet Count 468H, Mean Platelet Volume 9.1, Sodium Level 139, Potassium Level 3.4L, Chloride Level 101, Carbon Dioxide Level 28, Anion Gap 10, Blood Urea Nitrogen 5L, Creatinine 0.61, Estimat Glomerular Filtration Rate > 60, BUN/Creatinine Ratio 8, Glucose Level 97, Calcium Level 9.2, Corrected Calcium 9.6, Total Bilirubin 0.4, Aspa rtate Amino Transf (AST/SGOT) 15, Alanine Aminotransferase (ALT/SGPT) 18, Alkaline Phosphatase 90, Total Protein 6.2L, Albumin 3.5 Microbiology 04/16/19 MRSA Screen - Final, Complete MRSA not isolated Assessment/Plan Assessment/Plan Assess & Plan/Chief Complaint BACK PAIN WITH LUMBAR LAMINECTOMY AND PAIN STIMULATOR PLACEMENT NAUSEA ASTHMA ACID REFLUX HYPOKALEMIA HYPERTENSION HYPERTRIGLYCERIDEMIA BACK PAIN WITH LUMBAR LAMINECTOMY AND PAIN STIMULATOR PLACEMENT - POST OP ON 04/15/19 AND 04/16/19 AFTER SHE DEVELOPED AN ACUTE HEMATOMA - THIS WAS REMOVED DURING THE SECOND SURGERY. PT REPORTS THAT PAIN IS STILL PRESENT, BUT BETTER THAN ON ADMISSION. NAUSEA - IMPROVED - ADVISED DTR TO BRING IN CANDIED MICHELLE FOR RHYS TO USE PRIOR TO TAKING ANY PAIN MEDICATIONS TO ATTEMPT TO CALM HER GI TRACT, SINCE NAUSEA IS WHY SHE HAS BEEN UNABLE TO TAKE OTHER MEDICATIONS FOR PAIN BY MOUTH. ASTHMA - CHRONIC AND STABLE. ACID REFLUX - RESTART H2 BLOCKERS. HYPOKALEMIA - LOW YESTERDAY- NO LABS THIS MORNING - REPEAT LABS AND GIVE POTASSIUM IV IF NEEDED. HYPERTENSION - PT ON AMLODIPINE 2.5MG BID- MONITOR PRESSURES, IF CONSISTENTLY ABOVE 150'S, WILL INCREASE TO 5MG BID. HYPERTRIGLYCERIDEMIA - HOLD GEMFIBROZIL FOR NOW. Clinical Quality Measures DVT/VTE Risk/Contraindication: Risk Factor Score Per Nursin RFS Level Per Nursing on Admit: 4+=Very High FILIPE CUEVAS MD Apr 22, 2019 08:36
[2019-04-22] MEDS ORDERED: METHYLNALTREXONE 12 MG/0.6 ML (RELISTOR) VIAL SQ NR (08:38)
[2019-04-22] MEDS ORDERED: DOCUSATE SODIUM 100 MG (COLACE) CAP PO NR (08:44)
[2019-04-22] MEDS ORDERED: METH150T PO (09:16)
[2019-04-22] MEDS ORDERED: POTA10TA6 PO (09:16)
[2019-04-22] MEDS ORDERED: MORP-33 PO (09:16)
[2019-04-22] MEDS ORDERED: SENN-20 PO (09:16)
[2019-04-22] MEDS ORDERED: BUTA1TAB9 PO (09:16)
--- NOTE | 2019-04-22 09:17 | Discharge Inst-Skilled Nursing ---
Discharge Inst-Skilled NF Patient Instructions Patient Problems: BACK PAIN WITH LUMBAR LAMINECTOMY AND PAIN STIMULATOR PLACEMENT NAUSEA ASTHMA ACID REFLUX HYPOKALEMIA HYPERTENSION HYPERTRIGLYCERIDEMIA Consult/Follow Up/Orders Follow Up Appt.: [facility] [address] [facility] Skilled NF Admit to: [facility] Certification ([facility]) I certify that SNF services are required to be given on an inpatient basis because of the above named patient's need for [place] [facility] care on a continuing basis for the conditions(s) for which he/she was receiving inpatient hospital services prior to his/her transfer to the [facility]. Residential Facility Order: Nursing Services, Devops Developer-Evaluate & Treat, Physical Therapy-Evaluate & Treat Oxygen Delivery Method: Room Air Discharge Diet: Regular Diet Daily Activity as Tolerated: Yes New & Resume Previous Orders Filipe Rosenberg Apr 22, 2019 09:16 Medication List: Active Scripts Active Relistor (Methylnaltrexone [place]) 150 Mg Tablet 150 Mg PO Q48H Senna-Time S Tablet (Sennosides/Docusate Sodium) 1 Each Tablet 1 Ea PO BID Klor-Con 10 (Potassium Chloride) 10 Meq Tablet.er 10 Meq PO TIDPC Morphine Sulfate ER (Morphine Sulfate) 15 Mg Tablet.er 15 Mg PO Q12HR Dpiuec-Xmnntkpa-Aeoi 50-325-40 (Butalb/Acetaminophen/Caffeine) 1 Each Tablet 1 Each PO Q6H PRN Pentazocine-Naloxone Tablet (Pentazocine/Naloxone) 50 Mg Tab 50 Mg PO Q4H PRN 7 Days Reported Melatonin 3 mg Tablet (Melatonin/Pyridoxine HCl (B6)) 1 Each Tablet 1 Each PO HS Folic Acid 0.4 Mg Tablet 0.4 Mg PO DAILY Beta Carotene (Beta-Carotene) 10,000 Unit Capsule 10,000 Unit PO DAILY Ascorbic Acid 500 Mg Tablet 500 Mg PO DAILY Vitamin E (Vitamin E Acetate) 400 Unit Capsule 400 Unit PO DAILY Zinc (Zinc Amino Acid Chelate) 50 Mg Tablet 50 Mg PO DAILY Celecoxib 200 Mg Capsule 200 Mg PO DAILY Proair Hfa (Albuterol Sulfate) 1 Puff Puff 2 Puff IH Q4H PRN 1 PUFF = 90 MCG Multivitamins (Multivitamin) 1 Each Capsule PO DAILY Aspirin 81 Mg Tab.chew 81 Mg PO DAILY Montelukast Sodium 10 Mg Tablet 10 Mg PO DAILY Loratadine 10 Mg Tablet 10 Mg PO DAILY Vitamin D3 (Cholecalciferol (Vitamin D3)) 2,000 Unit Tablet 2,000 Unit PO DAILY Vitamin B12 (Cyanocobalamin (Vitamin B-12)) 5,000 Mcg Tab.rapdis 5,000 Mcg PO DAILY Vitamin B-6 (Pyridoxine HCl) 100 Mg Tablet 100 Mg PO DAILY Potassium (Potassium Gluconate) 99 Mg Tablet 99 Mg PO DAILY Probiotic (L.acidoph & Paracasei,B.lactis) 1 Each Capsule 1 Each PO DAILY Baclofen 20 Mg Tablet 5 Mg PO TID PRN Paxil (Paroxetine HCl) 20 Mg Tablet 10 Mg PO DAILY Gabapentin 300 Mg Capsule 300 Mg PO TID Amlodipine Besylate 5 Mg Tablet 2.5 Mg PO BID Acid Animal Care Assistant (RANITIDINE) (Ranitidine HCl) 150 Mg Tablet 150 Mg PO DAILY Gemfibrozil 600 Mg Tablet 600 Mg PO BID Valacyclovir (Valacyclovir HCl) 1,000 Mg Tablet 1,000 Mg PO BID Lab results: Laboratory Tests Test 04/22/19 05:00 Range/Units White Blood Count 10.2 4.3-11.0 10^3/uL Red Blood Count 3.86 L 4.35-5.85 10^6/uL Hemoglobin 12.1 11.5-16.0 G/DL Hematocrit 36 35-52 % Mean Corpuscular Volume 94 80-99 FL Mean Corpuscular Hemoglobin 31 25-34 PG Mean Corpuscular Hemoglobin Concent 33 32-36 G/DL Red Cell Distribution Width 12.7 10.0-14.5 % Platelet Count 468 H 130-400 10^3/uL Mean Platelet Volume 9.1 7.4-10.4 FL Sodium Level 139 135-145 MMOL/L Potassium Level 3.4 L 3.6-5.0 MMOL/L Chloride Level 101 98-107 MMOL/L Carbon Dioxide Level 28 21-32 MMOL/L Anion Gap 10 5-14 MMOL/L Blood Urea Nitrogen 5 L 7-18 MG/DL Creatinine 0.61 0.60-1.30 MG/DL Estimat Glomerular Filtration Rate > 60 BUN/Creatinine Ratio 8 Glucose Level 97 70-105 MG/DL Calcium Level 9.2 8.5-10.1 MG/DL Corrected Calcium 9.6 8.5-10.1 MG/DL Total Bilirubin 0.4 0.1-1.0 MG/DL Aspartate Amino Transf (AST/SGOT) 15 5-34 U/L Alanine Aminotransferase (ALT/SGPT) 18 0-55 U/L Alkaline Phosphatase 90 40-136 U/L Total Protein 6.2 L 6.4-8.2 GM/DL Albumin 3.5 3.2-4.5 GM/DL My orders: Orders - FILIPE ROSENBERG MD Methylnaltrexone Injection (Relistor Inj (04/22/19 08:38) Docusate Sodium Capsule (Colace Capsule) (04/22/19 08:44) Soap Suds Enema (04/22/19 09:11) Consulting Physician D/C Order (04/22/19 09:12) FILIPE ROSENBERG MD Apr 22, 2019 09:17
--- NOTE | 2019-04-22 09:58 | Physical Therapy Daily Note ---
PT Daily Note-Current Subjective Patient reports decrease c/o pain and agrees to PT. Pain Numeric Pain Scale: 3 Location: Medial, Lower Location Body Site: Back Pain Description: Ache Mental Status Patient Orientation: Normal For Age Transfers Therapy Code Descriptions/Definitions Functional [place] Measure: 0=Not Assessed/NA 4=Minimal Assistance 1=Total Assistance 5=Supervision or Setup 2=Maximal Assistance 6=Modified [place] 3=Moderate Assistance 7=Complete [place] Therapy Quality Codes: 6 Independent with activity with or without an assistive device 5 Patient requires set up or clean up by helper. Patient completes activity by themselves 4 Supervision or touching assist (CGA). [place] provide cues , steadying assist 3 The helper provides less than half the effort to complete the activity 2 The helper provides more than half the effort to complete the activity 1 Dependent. The helper does all the effort to complete an activity 7 Patient refused to complete or attempt activity 9 The patient did not perform the activity before the current illness or injury 88 Not attempted due to Medical conditions or safety concerns Transfers (B, C, W/C) (FIM): 6 Scootin Rollin Supine to/from Sit: 6 Sit to/from Stand: 6 Weight Bearing Right Lower Extremity: Right Full Weight Bearing Left Lower Extremity: Left Full Weight Bearing Gait Training Gait (FIM): 6 Distance (FIM): 3=150 ft Distance: 650' Gait Level of Assist: 6 Gait Assistive Device: FWW slow, steady pace with FWW Exercises Supine Ex: Ankle pumps, Quad Set, Heel Slides, Straight leg raise Supine Reps: 12 Seated Therapy Exercises: Long arc quads Seated Reps: 15 Assessment Patient much improved on this date. PT to continue with POC until dismissal to home or NH per patient report. PT Short Term Goals Short Term Goals Time Frame: Apr 24, 2019 Transfers (B,C,W/C) (FIM): 5 Gait (FIM): 5 Gait Distance Comment: 150' Gait Level of Assist: 5 Gait Assistive Device: FWW PT Plan Treatment/Plan Treatment Plan: Continue Plan of Care Treatment Plan: Bed Mobility, Education, Functional Activity [place], Functional Strength, Gait, Safety, Therapeutic Exercise, Transfers Treatment Duration: Apr 24, 2019 Frequency: 6 times per week Estimated Hrs Per Day: .25 hour per day Patient and/or Family Agrees t: Yes Time/GCodes Time In: 815 Time Out: 839 Total Billed Treatment Time: 24 Total Billed Treatment 1 visit FA 14 min EX 10 min SRINIVAS ALONSO PT Apr 22, 2019 09:58
[2019-04-22] MEDS: PARoxetine 10 MG (PAXIL) TAB PO SCH (10:10)
[2019-04-22] MEDS: KCL 10 MEQ TAB (MICRO K) PO SCH (10:10)
[2019-04-22] MEDS: SENNA W/DOCUSATE (SENOKOT S) TABLET PO SCH (10:10)
[2019-04-22] MEDS: amLODIPine 2.5MG (NORVASC) TAB PO SCH (10:10)
[2019-04-22] MEDS: FAMOTIDINE 20 MG (PEPCID) TABLET PO SCH (10:10)
[2019-04-22] MEDS: VALACYCLOVIR 500 MG TAB (VALTREX) PO SCH (10:10)
[2019-04-22] MEDS: morphine ER 15 MG (MS CONTIN) TAB PO SCH (10:11)
[2019-04-22] MEDS: GABAPENTIN 300 MG (NEURONTIN) CAP PO SCH (10:11)
[2019-04-22 12:00] VITALS: BP 140/92
--- NOTE | 2019-04-22 13:12 | NUR ---
CM/SS, summary. Patient discharged today to new Medicare skilled placement with [facility] via their transport. CARE Assessment done with patient, processed with [facility]. Faxed orders and CARE to [facility], prepared continuum of care packet to accompany patient. Patient has updated her daughter, Gi Felix about all arrangements. Unit RN and academic support coordinator aware.
[2019-04-22 13:30] VITALS: BP 140/92
--- NOTE | 2019-04-22 13:30 | NUR ---
RHYS AYON AND WILDER RN demonstrates understanding of discharge instructions and accurately returns instructions upon questioning. Copy of Post-Discharge Instructions given to PT. RHYS AYON is able to manage continuing needs after discharge WITH ASSISTANCE OF [facility]. Patients belongings returned to . Patient discharged from [facility] on at . RHYS AYON left floor via W/C, accompanied by STAFF AND [facility] PER [facility] [employer] [facility].
--- OUTSIDE RECORDS SUMMARY | 2019-04-24 18:16 | XMS REPORT | Continuity of Care Document ---
Author Organization Unknown Address Unknown Allergies Active Description Code Type Severity Reaction Onset Reported/Identified Relationship to Patient Clinical Status Yes Horse/Equine Containing Products [id number] Drug Allergy Unknown N/A 07/22/2009 Yes penicillin G [id number] Drug Allergy Unknown N/A 07/22/2009 Yes Sulfa (Sulfonamide Antibiotics) [id number] Drug Allergy Unknown N/A 07/22/2009 Yes clopidogrel bisulfate [id number] Drug Allergy Moderate SEVERE BLEEDING 01/19/2011 Yes TB INGRIS TEST TB INGRIS TEST Unknown N/A 03/15/2016 Yes clopidogrel bisulfate [id number] Drug Allergy Severe SEVERE BLEEDING 04/15/2019 Yes Horse/Equine Containing Products [id number] Drug Allergy Severe SWELLING 04/15/2019 Yes tuberculin, purified protein deriva [id number] Drug Allergy Severe POSTITIVE REACT 04/15/2019 Yes clindamycin [id number] Drug Allergy Moderate DIARRHEA 04/15/2019 Yes Penicillins [id number] Drug Allergy Mild HIVES 04/15/2019 Yes Sulfa (Sulfonamide Antibiotics) [id number] Drug Allergy Mild RASH 04/15/2019 Medications There [...] FALL STRIKING OBJECT NEC 01/19/2011 Ot V06.1 [id number], COMBINED [ 05/11/2013 GUS SILVA RPA-C Ot [...] MD Ot 786.2 COUGH 03/15/2016 REBEKAH LARA PLC ENGINEER Ot V76.12 OTH SCREEN MAMMO-MALIGN NEOPLASM OF [place] 03/17/2016 SONU DO DARRELL Elzbieta Ot M54.2 CERVICALGIA 03/17/2016 SONUDARRELL DOMINGUEZ DO Ot N39.0 URINARY TRACT INFECTION, SITE NOT SPECIF 03/17/2016 SONU DARRELL BENNETT Ot R07.89 OTHER CHEST PAIN 04/01/2016 ALEX ALLEN PLC ENGINEER Ot R04.0 EPISTAXIS 04/04/2016 ALEX ALLEN [employer] ENGINEER Ot R04.0 EPISTAXIS 04/04/2016 ALEX ALLEN PLC ENGINEER Ot R04.0 EPISTAXIS 12/13/2016 Ot V76.12 OTH SCREEN MAMMO- MALIGN NEOPLASM OF [place] 12/13/2016 NICK HARRISON FACC, ALI FACP CCDS Ot 786.59 CHEST PAIN NEC 12/13/2016 FILIPE CUEVAS MD Ot 493.90 ASTHMA, UNSPECIFIED 12/13/2016 FILIPE CUEVAS MD Ot 496 CHR AIRWAY OBSTRUCT NEC 12/13/2016 FILIPE CUEVAS MD Ot 786.2 COUGH 12/13/2016 REBEKAH LARA [employer] ENGINEER Ot V76.12 OTH SCREEN MAMMO-MALIGN NEOPLASM OF [place] 12/13/2016 Ot V76.12 OTH SCREEN MAMMO- MALIGN NEOPLASM OF [place] 12/13/2016 NICK HARRISON FACC, ALI FACP CCDS Ot 786.59 CHEST PAIN NEC 12/13/2016 FILIPE CUEVAS MD Ot 493.90 ASTHMA, UNSPECIFIED 12/13/2016 FILIPE CUEVAS MD Ot 496 CHR AIRWAY OBSTRUCT NEC 12/13/2016 FILIPE CUEVAS MD Ot 786.2 COUGH 12/13/2016 REBEKAH LARA [employer] ENGINEER Ot V76.12 OTH SCREEN MAMMO-MALIGN NEOPLASM OF [place] 12/13/2016 NICK HARRISON FACC, ALI FACP CCDS Ot I70.213 ATHSCL [place] ARTERIES OF EXTRM W INTRMT 12/13/2016 NICK HARRISON FACC, ALI FACP CCDS Ot R06.02 SHORTNESS OF BREATH 12/15/2016 NICK HARRISON FACC, ALI FACP CCDS Ot I70.213 ATHSCL [place] ARTERIES OF EXTRM W INTRMT 12/15/2016 NICK GRESHAMC, ALI FACP CCDS Ot I70.213 ATHSCL [place] ARTERIES OF EXTRM W INTRMT 12/15/2016 NICK GRESHAMC, ALI FACP CCDS Ot J43.8 OTHER EMPHYSEMA 12/21/2016 NICK HARRISON FACC, ALI FACP CCDS Ot I70.213 ATHSCL [place] ARTERIES OF EXTRM W INTRMT 12/21/2016 NICK HARRISON FACC, ALI FACP CCDS Ot J43.8 OTHER EMPHYSEMA 12/21/2016 NICK HARRISON FACC, ALI FACP CCDS Ot R06.02 SHORTNESS OF BREATH 12/21/2016 NICK GRESHAMC, ALI FACP CCDS Ot I70.213 ATHSCL [place] ARTERIES OF EXTRM W INTRMT 12/21/2016 NICK [...] FACC, ALI FACP CCDS Ot I70.213 ATHSCL [place] ARTERIES OF EXTRM W INTRMT 01/12/2017 NICK HARRISON FACC, ALI FACP CCDS Ot J43.8 OTHER EMPHYSEMA 01/12/2017 NICK GRESHAMC, ALI FACP CCDS Ot R06.02 SHORTNESS OF BREATH 01/12/2017 NICK HARRISON FACC, ALI FACP CCDS Ot J43.8 OTHER EMPHYSEMA 01/12/2017 NICK GRESHAMC, ALI FACP CCDS Ot R26.89 OTHER ABNORMALITIES OF GAIT AND MOBILITY 01/18/2017 NICK GRESHAMC, ALI FACP CCDS Ot I70.213 ATHSCL [place] ARTERIES OF EXTRM W INTRMT 01/18/2017 NICK [...] FAC, ALI FACP CCDS Ot I70.213 ATHSCL [place] ARTERIES OF EXTRM W INTRMT 07/24/2017 NICK [...] MALIGN NEOPLASM OF [place] 08/11/2017 HERMINIO CORTES PODOPEDIATRICIAN Ot Z12.31 ENCNTR SCREEN MAMMOGRAM FOR MALIGNANT NE 08/15/2017 FILIPE CUEVAS MD Ot M41.9 SCOLIOSIS, UNSPECIFIED 08/15/2017 FILIPE CUEVAS MD Ot M48.061 SPINAL STENOSIS, LUMBAR REGION WITHOUT N 08/18/2017 Ot V76.12 OTH SCREEN MAMMO- MALIGN NEOPLASM OF [place] 08/18/2017 HERMINIO CORTES PODOPEDIATRICIAN Ot Z12.31 ENCNTR SCREEN MAMMOGRAM FOR MALIGNANT NE 09/11/2017 HERMINIO CORTES Ot Z12.31 ENCNTR SCREEN MAMMOGRAM FOR MALIGNANT NE 04/30/2018 NICK HARRISON FACC, ALI FACP CCDS Ot 786.59 CHEST PAIN NEC 04/30/2018 FILIPE CUEVAS MD Ot 493.90 ASTHMA, UNSPECIFIED 04/30/2018 FILIPE CUEVAS MD Ot 496 CHR AIRWAY OBSTRUCT NEC 04/30/2018 FILIPE CUEVAS MD Ot 786.2 COUGH 04/30/2018 REBEKAH LARA PLC ENGINEER Ot V76.12 OTH SCREEN MAMMO-MALIGN NEOPLASM OF [place] 04/30/2018 NICK HARRISON FACC, ALI FACP CCDS Ot I70.213 ATHSCL [place] ARTERIES OF EXTRM W INTRMT 04/30/2018 NICK [...] LUMBAR REGION WITHOUT N 04/30/2018 HERMINIO CORTES PODOPEDIATRICIAN Ot Z12.31 ENCNTR SCREEN MAMMOGRAM FOR MALIGNANT [...] AGE-RELATED OSTEOPOROSIS W/O CURRENT PAT 06/26/2018 NICK GRSEHAMC, ALI FACP CCDS Ot 786.59 CHEST PAIN NEC 06/26/2018 FILIPE CUEVAS MD Ot 493.90 ASTHMA, UNSPECIFIED 06/26/2018 FILIPE CUEVAS MD Ot 496 CHR AIRWAY OBSTRUCT NEC 06/26/2018 FILIPE CUEVAS MD Ot 786.2 COUGH 06/26/2018 REBEKAH LARA [employer] ENGINEER Ot V76.12 OTH SCREEN MAMMO-MALIGN NEOPLASM OF [place] 06/26/2018 NICK HARRISON FACC, ALI FACP CCDS Ot I70.213 ATHSCL [place] ARTERIES OF EXTRM W INTRMT 06/26/2018 NICK [...] OF THYROID FUNCTION PRINCESS 08/13/2018 BALDEMAR MONAHAN PODOPEDIATRICIAN Ot E78.5 HYPERLIPIDEMIA, UNSPECIFIED 08/13/2018 BALDEMAR MONAHAN PODOPEDIATRICIAN Ot G47.39 OTHER SLEEP APNEA 08/13/2018 BALDEMAR MONAHAN PODOPEDIATRICIAN Ot I10 ESSENTIAL (PRIMARY) HYPERTENSION 08/13/2018 BALDEMAR MONAHAN PODOPEDIATRICIAN Ot M79.89 OTHER SPECIFIED SOFT TISSUE DISORDERS 11/02/2018 ROSLYN HUNTER MD Ot B02.9 ZOSTER WITHOUT COMPLICATIONS 11/02/2018 ELSA HARRISON, ROSLYN Prasad Ot G51.0 DUNN'S PALSY 11/02/2018 ELSA HARRISON, ROSLYN Prasad Ot I10 ESSENTIAL (PRIMARY) HYPERTENSION 11/02/2018 ELSA HARRISON, ROSYLN Prasad Ot J44.9 CHRONIC OBSTRUCTIVE PULMONARY DISEASE, U 11/02/2018 ELSA HARRISON, ROSLYN Prasad Ot R29.810 FACIAL WEAKNESS 11/02/2018 ROSLYN HUNTER MD Ot Z79.51 [employer] LABORER (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) USE OF INHALED STERO 11/02/2018 ROSLYN HUNTER MD Ot Z79.82 [employer]ER (CURRENT) USE OF ASPIRIN 11/02/2018 ROSLYN HUNTER [...] SKIN 11/03/2018 ROSLYN HUNTER MD Ot Z79.51 [employer]ER (CURRENT) USE OF INHALED STERO 11/03/2018 ROSLYN HUNTER MD Ot Z79.82 SHELTER (CURRENT) USE OF ASPIRIN 11/03/2018 ROSLYN HUNTER [...] WEAKNESS 11/05/2018 ROSLYN HUNTER MD Ot Z79.51 [employer]ER (CURRENT) USE OF INHALED STERO 11/05/2018 ELSA HARRISON, ROSLYN Prasad Ot Z79.82 SHELTER (CURRENT) USE OF ASPIRIN 11/05/2018 ROSLYN HUNTER [...] I10 ESSENTIAL (PRIMARY) HYPERTENSION 11/06/2018 ELSA HARRISON, ROSYLN Prasad Ot J44.9 CHRONIC OBSTRUCTIVE PULMONARY DISEASE, U 11/06/2018 ROSLYN HUNTER MD Ot R20.0 ANESTHESIA OF SKIN 11/06/2018 ROSLYN HUNTER MD Ot Z79.51 SHELTER (CURRENT) USE OF INHALED STERO 11/06/2018 ROSLYN HUNTER MD Ot Z79.82 SHELTER (CURRENT) USE OF ASPIRIN 11/06/2018 ELSA HARRISON [...] OTHER SPECIFIED POSTPROCEDURAL STATES 11/23/2018 LUCIA BEASLEY PLC ENGINEER Ot Z12.31 ENCNTR SCREEN MAMMOGRAM FOR MALIGNANT NE 11/30/2018 FILIPE CUEVAS MD Ot 496 CHR AIRWAY OBSTRUCT NEC 11/30/2018 FILIPE CUEVAS MD Ot 786.2 COUGH 11/30/2018 REBEKAH LARA PLC ENGINEER Ot V76.12 OT SCREEN MAMMO-MALIGN NEOPLASM OF [place] 11/30/2018 NICK HARRISON FACC, ALI FACP CCDS Ot I70.213 ATHSCL [place] ARTERIES OF EXTRM W INTRMT 11/30/2018 NICK [...] LUMBAR REGION WITHOUT N 11/30/2018 HERMINIO CORTES PODOPEDIATRICIAN Ot Z12.31 ENCNTR SCREEN MAMMOGRAM FOR MALIGNANT NE 11/30/2018 MEHUL MIGUEL MD Ot M54.2 CERVICALGIA 11/30/2018 MYRIAM HARRISON, MEHUL Toure Ot M54.6 PAIN IN THORACIC SPINE 11/30/2018 MEHUL MIGUEL MD Ot Z53.8 PROCEDURE AND TREATMENT NOT CARRIED OUT 11/30/2018 DESTINY DAWN, LILI Stevens Ot M81.0 AGE-RELATED OSTEOPOROSIS W/O CURRENT PAT 11/30/2018 FAITH HARRISON, FILIPE Fink Ot R94.6 ABNORMAL RESULTS OF THYROID FUNCTION PRINCESS 11/30/2018 BALDEMAR MONAHAN PODOPEDIATRICIAN Ot E78.5 HYPERLIPIDEMIA, UNSPECIFIED 11/30/2018 BAIMA BALDEMAR L PODOPEDIATRICIAN Ot G47.39 OTHER SLEEP APNEA 11/30/2018 BAIMABALDEMAR L PODOPEDIATRICIAN Ot I10 ESSENTIAL (PRIMARY) HYPERTENSION 11/30/2018 BAIBALDEMAR PIERCE PODOPEDIATRICIAN Ot M79.89 OTHER SPECIFIED SOFT TISSUE DISORDERS [...] ENCOUNTER 11/30/2018 HITESH LY MD Ot Z79.82 [employer]ER (CURRENT) USE OF ASPIRIN 11/30/2018 HITESH LY MD Ot Z88.0 ALLERGY STATUS TO PENICILLIN 11/30/2018 HITESH LY MD Ot Z88.2 ALLERGY STATUS TO SULFONAMIDES STATUS 11/30/2018 HITESH LY MD Ot Z90.710 ACQUIRED ABSENCE OF BOTH CERVIX AND UTER 12/02/2018 RAMOS, LUCIA M PLC ENGINEER Ot Z12.31 ENCNTR SCREEN MAMMOGRAM FOR MALIGNANT [...] ENCOUNTER 12/03/2018 HITESH LY MD Ot Z79.82 SHELTER (CURRENT) USE OF ASPIRIN 12/03/2018 HITESH LY MD Ot Z88.0 ALLERGY STATUS TO PENICILLIN 12/03/2018 HITESH LY MD Ot Z88.2 ALLERGY STATUS TO SULFONAMIDES STATUS 12/03/2018 HITESH LY MD Ot Z90.710 ACQUIRED ABSENCE OF BOTH CERVIX AND UTER 12/18/2018 LUCIA BEASLEY PLC ENGINEER Ot Z12.31 ENCNTR SCREEN MAMMOGRAM FOR MALIGNANT NE 04/10/2019 FILIPE CUEVAS MD Ot 496 CHR AIRWAY OBSTRUCT NEC 04/10/2019 FILIPE CUEVAS MD Ot 786.2 COUGH 04/10/2019 REBEKAH LARA PLC ENGINEER Ot V76.12 OT SCREEN MAMMO-MALIGN NEOPLASM OF [place] 04/10/2019 NICK HARRISON FACC, ALI FACP CCDS Ot I70.213 ATHSCL [place] ARTERIES OF EXTRM W INTRMT 04/10/2019 NICK [...] OF THYROID FUNCTION PRINCESS 04/10/2019 BALDEMAR MONAHAN PODOPEDIATRICIAN Ot E78.5 HYPERLIPIDEMIA, UNSPECIFIED 04/10/2019 BALDEMAR MONAHAN PODOPEDIATRICIAN Ot G47.39 OTHER SLEEP APNEA 04/10/2019 BALDEMAR MONAHAN PODOPEDIATRICIAN Ot I10 ESSENTIAL (PRIMARY) HYPERTENSION 04/10/2019 BALDEMAR MONAHAN PODOPEDIATRICIAN Ot M79.89 OTHER SPECIFIED SOFT TISSUE DISORDERS 04/10/2019 LUCIA BEASLEY PLC ENGINEER Ot Z12.31 ENCNTR SCREEN MAMMOGRAM FOR MALIGNANT NE 04/11/2019 FILIPE CUEVAS MD Ot 496 CHR AIRWAY OBSTRUCT NEC 04/11/2019 FILIPE CUEVAS MD Ot 786.2 COUGH 04/11/2019 MEHUL MIGUEL MD Ot Z01.818 ENCOUNTER FOR OTHER PREPROCEDURAL EXAMIN 04/15/2019 FILIPE CUEVAS MD Ot 496 CHR AIRWAY OBSTRUCT NEC 04/15/2019 FILIPE CUEVAS MD Ot 786.2 COUGH 04/15/2019 REBEKAH LARA PLC ENGINEER Ot V76.12 OTH SCREEN MAMMO-MALIGN NEOPLASM OF [place] 04/15/2019 NICK HARRISON FACC, ALI FACP CCDS Ot I70.213 ATHSCL [place] ARTERIES OF EXTRM W INTRMT 04/15/2019 NICK HARRISON FACC, ALI FACP CCDS Ot J43.8 OTHER EMPHYSEMA 04/15/2019 NICK HARRISON [facility], ALI FACP CCDS Ot R06.02 SHORTNESS OF BREATH 04/15/2019 NICK HARRISON [facility], ALI FACP CCDS Ot J43.8 OTHER EMPHYSEMA 04/15/2019 NICK HARRISON [facility], ALI FACP CCDS Ot R26.89 OTHER ABNORMALITIES OF GAIT AND MOBILITY 04/15/2019 FILIPE CUEVAS MD Ot M41.9 SCOLIOSIS, UNSPECIFIED 04/15/2019 FILIPE CUEVAS MD Ot M48.061 SPINAL STENOSIS, LUMBAR REGION WITHOUT N 04/15/2019 HERMINIO CORTES Ot Z12.31 ENCNTR SCREEN MAMMOGRAM FOR MALIGNANT NE 04/15/2019 MEHUL MIGUEL MD Ot M54.2 CERVICALGIA 04/15/2019 MEHUL MIGUEL MD, Ot M54.6 PAIN IN THORACIC SPINE 04/15/2019 MEHUL MIGUEL MD Ot Z53.8 PROCEDURE AND TREATMENT NOT CARRIED OUT 04/15/2019 LILI ROACH Ot M81.0 AGE-RELATED OSTEOPOROSIS W/O CURRENT PAT 04/15/2019 FILIPE CUEVAS MD Ot R94.6 ABNORMAL RESULTS OF THYROID FUNCTION PRINCESS 04/15/2019 BALDEMAR MONAHAN PODOPEDIATRICIAN Ot E78.5 HYPERLIPIDEMIA, UNSPECIFIED 04/15/2019 BALDEMAR MONAHAN PODOPEDIATRICIAN Ot G47.39 OTHER SLEEP APNEA 04/15/2019 BALDEMAR MONAHAN PODOPEDIATRICIAN Ot I10 ESSENTIAL (PRIMARY) HYPERTENSION 04/15/2019 BALDEMAR MONAHAN PODOPEDIATRICIAN Ot M79.89 OTHER SPECIFIED SOFT TISSUE DISORDERS 04/15/2019 LUCIA BEASLEY APRN Ot Z12.31 ENCNTR SCREEN MAMMOGRAM FOR MALIGNANT NE 04/15/2019 FILIPE CUEVAS MD Ot 496 CHR AIRWAY OBSTRUCT NEC 04/15/2019 FILIPE CUEVAS MD Ot 786.2 COUGH 04/17/2019 MEHUL MIGUEL MD, Ot J44.9 CHRONIC OBSTRUCTIVE PULMONARY DISEASE, U 04/17/2019 MEHUL MIGUEL MD Ot M54.16 RADICULOPATHY, LUMBAR REGION 04/17/2019 MEHUL MIGUEL MD Ot M96.1 POSTLAMINECTOMY SYNDROME, NOT ELSEWHERE 04/17/2019 MEHUL MIGUEL MD Ot Z79.82 W[employer] LAB[employer]ER (CURRENT) USE OF ASPIRIN Procedures Code Description Performed By Performed On [...] blood glucose measurement by glucometer (mass/volume) - 01/18/19 07:56 Capillary blood glucose measurement by glucometer [...] troponin i.cardiac measurement (mass/volume) < ng/mL <0.028 Methicillin resistant Staphylococcus aureus (MRSA) screening culture - 04/15/19 06:19 Methicillin resistant Staphylococcus aureus (MRSA) screening culture NEG NRG Complete blood count (CBC) with automated white [...] NRG Blood lymphocytes variant/100 leukocytes 2 % NRG Blood rouleaux detection by light microscopy [facility] Comprehensive metabolic panel - 04/15/19 20:55 Serum [...] NRG Serum or plasma glucose measurement (mass/volume) 108 [...] NRG Urine pH measurement by test strip 8 [...] urinalysis with reflex to culture NO NRG Complete blood count (CBC) with automated white blood cell (WBC) differential - 04/16/19 03:15 Blood leukocytes automated count (number/volume) 13.8 10*3/uL 4.3-11.0 Blood erythrocytes automated count (number/volume) 4.34 10*6/uL 4.35-5.85 Venous blood hemoglobin measurement (mass/volume) 13.6 g/dL 11.5-16.0 Blood hematocrit (volume fraction) 40 % 35-52 Automated erythrocyte mean corpuscular volume 93 [foz_us] 80-99 Automated erythrocyte mean corpuscular hemoglobin (mass per erythrocyte) 31 pg 25-34 Automated erythrocyte mean corpuscular hemoglobin concentration measurement (mass/volume) 34 g/dL 32-36 Automated erythrocyte distribution width ratio 12.7 % 10.0- 14.5 Automated blood platelet count (count/volume) 390 10*3/uL 130-400 Automated blood platelet mean volume measurement 9.5 [foz_us] 7.4-10.4 Automated blood neutrophils/100 leukocytes 85 % 42-75 Automated blood lymphocytes/100 leukocytes 10 % 12-44 Blood monocytes/100 leukocytes 6 % 0-12 Automated blood eosinophils/100 leukocytes 0 % 0-10 Automated blood basophils/100 leukocytes 0 % 0-10 Blood neutrophils automated count (number/volume) 11.7 10*3 1.8-7.8 Blood lymphocytes automated count (number/volume) 1.4 10*3 1.0-4.0 Blood monocytes automated count (number/volume) 0.8 10*3 0.0- 1.0 Automated eosinophil count 0.0 10*3/uL 0.0-0.3 Automated blood basophil count (count/volume) 0.0 10*3/uL 0.0-0.1 Comprehensive metabolic panel - 04/16/19 03:15 Serum or plasma sodium measurement (moles/volume) 138 mmol/L 135-145 Serum or plasma potassium measurement (moles/volume) 3.7 mmol/L 3.6-5.0 Serum or plasma chloride measurement (moles/volume) 102 mmol/L 98-107 Carbon dioxide 24 mmol/L 21-32 Serum or plasma anion gap determination (moles/volume) 12 mmol/L 5-14 Serum or plasma urea nitrogen measurement (mass/volume) 8 mg/dL 7-18 Serum or plasma creatinine measurement (mass/volume) 0.80 mg/dL 0.60-1.30 Serum or plasma urea nitrogen/creatinine mass ratio 10 NRG Serum or plasma creatinine measurement with calculation of estimated glomerular filtration rate > NRG Serum or plasma glucose measurement (mass/volume) 146 mg/dL 70-105 Serum or plasma calcium measurement (mass/volume) 10.0 mg/dL 8.5-10.1 Serum or plasma total bilirubin measurement (mass/volume) 0.3 mg/dL 0.1-1.0 Serum or plasma alkaline phosphatase measurement (enzymatic activity/volume) 112 U/L 40-136 Serum or plasma aspartate aminotransferase measurement (enzymatic activity/volume) 21 U/L 5-34 Serum or plasma alanine aminotransferase measurement (enzymatic activity/volume) 18 U/L 0-55 Serum or plasma protein measurement (mass/volume) 7.4 g/dL 6.4-8.2 Serum or plasma albumin measurement (mass/volume) 4.3 g/dL 3.2-4.5 CALCIUM CORRECTED 9.8 mg/dL 8.5-10.1 Methicillin resistant Staphylococcus aureus (MRSA) screening culture - 04/16/19 07:43 Methicillin resistant Staphylococcus aureus (MRSA) screening culture NEG NRG Complete blood count (CBC) with automated white blood cell (WBC) differential - 04/18/19 12:15 Blood leukocytes automated count (number/volume) 16.7 10*3/uL 4.3-11.0 Blood erythrocytes automated count (number/volume) 4.22 10*6/uL 4.35-5.85 Venous blood hemoglobin measurement (mass/volume) 13.2 g/dL 11.5-16.0 Blood hematocrit (volume fraction) 39 % 35-52 Automated erythrocyte mean corpuscular volume 93 [foz_us] 80-99 Automated erythrocyte mean corpuscular hemoglobin (mass per erythrocyte) 31 pg 25-34 Automated erythrocyte mean corpuscular hemoglobin concentration measurement (mass/volume) 34 g/dL 32-36 Automated erythrocyte distribution width ratio 12.7 % 10.0- 14.5 Automated blood platelet count (count/volume) 395 10*3/uL 130-400 Automated blood platelet mean volume measurement 9.1 [foz_us] 7.4-10.4 Automated blood neutrophils/100 leukocytes 61 % 42-75 Automated blood lymphocytes/100 leukocytes 26 % 12-44 Blood monocytes/100 leukocytes 12 % 0-12 Automated blood eosinophils/100 leukocytes 1 % 0-10 Automated blood basophils/100 leukocytes 0 % 0-10 Blood neutrophils automated count (number/volume) 10.2 10*3 1.8-7.8 Blood lymphocytes automated count (number/volume) 4.3 10*3 1.0-4.0 Blood monocytes automated count (number/volume) 2.1 10*3 0.0- 1.0 Automated eosinophil count 0.1 10*3/uL 0.0-0.3 Automated blood basophil count (count/volume) 0.0 10*3/uL 0.0-0.1 Comprehensive metabolic panel - 04/18/19 12:15 Serum or plasma sodium measurement (moles/volume) 137 mmol/L 135-145 Serum or plasma potassium measurement (moles/volume) 2.9 mmol/L 3.6-5.0 Serum or plasma chloride measurement (moles/volume) 99 mmol/L 98-107 Carbon dioxide 29 mmol/L 21-32 Serum or plasma anion gap determination (moles/volume) 9 mmol/L 5-14 Serum or plasma urea nitrogen measurement (mass/volume) 12 mg/dL 7-18 Serum or plasma creatinine measurement (mass/volume) 0.70 mg/dL 0.60-1.30 Serum or plasma urea nitrogen/creatinine mass ratio 17 NRG Serum or plasma creatinine measurement with calculation of estimated glomerular filtration rate > NRG Serum or plasma glucose measurement (mass/volume) 87 mg/dL 70-105 Serum or plasma calcium measurement (mass/volume) 9.1 mg/dL 8.5-10.1 Serum or plasma total bilirubin measurement (mass/volume) 0.4 mg/dL 0.1-1.0 Serum or plasma alkaline phosphatase measurement (enzymatic activity/volume) 95 U/L 40-136 Serum or plasma aspartate aminotransferase measurement (enzymatic activity/volume) 21 U/L 5-34 Serum or plasma alanine aminotransferase measurement (enzymatic activity/volume) 15 U/L 0-55 Serum or plasma protein measurement (mass/volume) 6.2 g/dL 6.4-8.2 Serum or plasma albumin measurement (mass/volume) 3.5 g/dL 3.2-4.5 CALCIUM CORRECTED 9.5 mg/dL 8.5-10.1 Serum or plasma lithium measurement (moles/volume) - 04/18/19 12:15 BNP PT 52.5 pg/mL <100.0 Serum or plasma troponin i.cardiac measurement (mass/volume) - 04/18/19 12:15 Serum or plasma troponin i.cardiac measurement (mass/volume) 0.074 ng/mL <0.028 THYROID STIMULATING HORMONE - 04/18/19 12:15 THYROID STIMULATING HORMONE 4.83 u[iU]/mL 0.35-4.94 Blood lactic acid measurement (moles/volume) - 04/18/19 14:00 Blood lactic acid measurement (moles/volume) 0.82 mmol/L 0.50- 2.00 Complete blood count (CBC) with automated white blood cell (WBC) differential - 04/19/19 09:55 Blood leukocytes automated count (number/volume) 12.1 10*3/uL 4.3-11.0 Blood erythrocytes automated count (number/volume) 4.07 10*6/uL 4.35-5.85 Venous blood hemoglobin measurement (mass/volume) 13.0 g/dL 11.5-16.0 Blood hematocrit (volume fraction) 39 % 35-52 Automated erythrocyte mean corpuscular volume 95 [foz_us] 80-99 Automated erythrocyte mean corpuscular hemoglobin (mass per erythrocyte) 32 pg 25-34 Automated erythrocyte mean corpuscular hemoglobin concentration measurement (mass/volume) 34 g/dL 32-36 Automated erythrocyte distribution width ratio 12.6 % 10.0- 14.5 Automated blood platelet count (count/volume) 402 10*3/uL 130-400 Automated blood platelet mean volume measurement 9.3 [foz_us] 7.4-10.4 Automated blood neutrophils/100 leukocytes 57 % 42-75 Automated blood lymphocytes/100 leukocytes 26 % 12-44 Blood monocytes/100 leukocytes 14 % 0-12 Automated blood eosinophils/100 leukocytes 4 % 0-10 Automated blood basophils/100 leukocytes 0 % 0-10 Blood neutrophils automated count (number/volume) 6.9 10*3 1.8-7.8 Blood lymphocytes automated count (number/volume) 3.1 10*3 1.0-4.0 Blood monocytes automated count (number/volume) 1.6 10*3 0.0- 1.0 Automated eosinophil count 0.4 10*3/uL 0.0-0.3 Automated blood basophil count (count/volume) 0.0 10*3/uL 0.0-0.1 Serum or plasma lithium measurement (moles/volume) - 04/19/19 09:55 BNP PT 61.7 pg/mL <100.0 Whole blood basic metabolic panel - 04/19/19 09:55 Serum or plasma sodium measurement (moles/volume) 138 mmol/L 135-145 Serum or plasma potassium measurement (moles/volume) 3.6 mmol/L 3.6-5.0 Serum or plasma chloride measurement (moles/volume) 102 mmol/L 98-107 Carbon dioxide 25 mmol/L 21-32 Serum or plasma anion gap determination (moles/volume) 11 mmol/L 5-14 Serum or plasma urea nitrogen measurement (mass/volume) 10 mg/dL 7-18 Serum or plasma creatinine measurement (mass/volume) 0.65 mg/dL 0.60-1.30 Serum or plasma urea nitrogen/creatinine mass ratio 15 NRG Serum or plasma creatinine measurement with calculation of estimated glomerular filtration rate > NRG Serum or plasma glucose measurement (mass/volume) 86 mg/dL 70-105 Serum or plasma calcium measurement (mass/volume) 8.9 mg/dL 8.5-10.1 Automated blood complete blood count (hemogram) panel - 04/20/19 04:49 Blood leukocytes automated count (number/volume) 10.2 10*3/uL 4.3-11.0 Blood erythrocytes automated count (number/volume) 3.88 10*6/uL 4.35-5.85 Venous blood hemoglobin measurement (mass/volume) 11.9 g/dL 11.5-16.0 Blood hematocrit (volume fraction) 37 % 35-52 Automated erythrocyte mean corpuscular volume 94 [foz_us] 80-99 Automated erythrocyte mean corpuscular hemoglobin (mass per erythrocyte) 31 pg 25-34 Automated erythrocyte mean corpuscular hemoglobin concentration measurement (mass/volume) 33 g/dL 32-36 Automated erythrocyte distribution width ratio 12.6 % 10.0- 14.5 Automated blood platelet count (count/volume) 423 10*3/uL 130-400 Automated blood platelet mean volume measurement 9.2 [foz_us] 7.4-10.4 Comprehensive metabolic panel - 04/20/19 04:49 Serum or plasma sodium measurement (moles/volume) 138 mmol/L 135-145 Serum or plasma potassium measurement (moles/volume) 3.3 mmol/L 3.6-5.0 Serum or plasma chloride measurement (moles/volume) 102 mmol/L 98-107 Carbon dioxide 26 mmol/L 21-32 Serum or plasma anion gap determination (moles/volume) 10 mmol/L 5-14 Serum or plasma urea nitrogen measurement (mass/volume) 7 mg/dL 7-18 Serum or plasma creatinine measurement (mass/volume) 0.60 mg/dL 0.60-1.30 Serum or plasma urea nitrogen/creatinine mass ratio 12 NRG Serum or plasma creatinine measurement with calculation of estimated glomerular filtration rate > NRG Serum or plasma glucose measurement (mass/volume) 97 mg/dL 70-105 Serum or plasma calcium measurement (mass/volume) 9.0 mg/dL 8.5-10.1 Serum or plasma total bilirubin measurement (mass/volume) 0.5 mg/dL 0.1-1.0 Serum or plasma alkaline phosphatase measurement (enzymatic activity/volume) 88 U/L 40-136 Serum or plasma aspartate aminotransferase measurement (enzymatic activity/volume) 36 U/L 5-34 Serum or plasma alanine aminotransferase measurement (enzymatic activity/volume) 23 U/L 0-55 Serum or plasma protein measurement (mass/volume) 5.9 g/dL 6.4-8.2 Serum or plasma albumin measurement (mass/volume) 3.3 g/dL 3.2-4.5 CALCIUM CORRECTED 9.6 mg/dL 8.5-10.1 Automated blood complete blood count (hemogram) panel - 04/21/19 05:03 Blood leukocytes automated count (number/volume) 10.4 10*3/uL 4.3-11.0 Blood erythrocytes automated count (number/volume) 3.89 10*6/uL 4.35-5.85 Venous blood hemoglobin measurement (mass/volume) 12.2 g/dL 11.5-16.0 Blood hematocrit (volume fraction) 36 % 35-52 Automated erythrocyte mean corpuscular volume 93 [foz_us] 80-99 Automated erythrocyte mean corpuscular hemoglobin (mass per erythrocyte) 31 pg 25-34 Automated erythrocyte mean corpuscular hemoglobin concentration measurement (mass/volume) 34 g/dL 32-36 Automated erythrocyte distribution width ratio 12.5 % 10.0- 14.5 Automated blood platelet count (count/volume) 433 10*3/uL 130-400 Automated blood platelet mean volume measurement 9.1 [foz_us] 7.4-10.4 Comprehensive metabolic panel - 04/21/19 05:03 Serum or plasma sodium measurement (moles/volume) 140 mmol/L 135-145 Serum or plasma potassium measurement (moles/volume) 3.5 mmol/L 3.6-5.0 Serum or plasma chloride measurement (moles/volume) 102 mmol/L 98-107 Carbon dioxide 26 mmol/L 21-32 Serum or plasma anion gap determination (moles/volume) 12 mmol/L 5-14 Serum or plasma urea nitrogen measurement (mass/volume) 6 mg/dL 7-18 Serum or plasma creatinine measurement (mass/volume) 0.60 mg/dL 0.60-1.30 Serum or plasma urea nitrogen/creatinine mass ratio 10 NRG Serum or plasma creatinine measurement with calculation of estimated glomerular filtration rate > NRG Serum or plasma glucose measurement (mass/volume) 101 mg/dL 70-105 Serum or plasma calcium measurement (mass/volume) 9.2 mg/dL 8.5-10.1 Serum or plasma total bilirubin measurement (mass/volume) 0.4 mg/dL 0.1-1.0 Serum or plasma alkaline phosphatase measurement (enzymatic activity/volume) 87 U/L 40-136 Serum or plasma aspartate aminotransferase measurement (enzymatic activity/volume) 17 U/L 5-34 Serum or plasma alanine aminotransferase measurement (enzymatic activity/volume) 21 U/L 0-55 Serum or plasma protein measurement (mass/volume) 6.0 g/dL 6.4-8.2 Serum or plasma albumin measurement (mass/volume) 3.4 g/dL 3.2-4.5 CALCIUM CORRECTED 9.7 mg/dL 8.5-10.1 Automated blood complete blood count (hemogram) panel - 04/22/19 05:00 Blood leukocytes automated count (number/volume) 10.2 10*3/uL 4.3-11.0 Blood erythrocytes automated count (number/volume) 3.86 10*6/uL 4.35-5.85 Venous blood hemoglobin measurement (mass/volume) 12.1 g/dL 11.5-16.0 Blood hematocrit (volume fraction) 36 % 35-52 Automated erythrocyte mean corpuscular volume 94 [foz_us] 80-99 Automated erythrocyte mean corpuscular hemoglobin (mass per erythrocyte) 31 pg 25-34 Automated erythrocyte mean corpuscular hemoglobin concentration measurement (mass/volume) 33 g/dL 32-36 Automated erythrocyte distribution width ratio 12.7 % 10.0- 14.5 Automated blood platelet count (count/volume) 468 10*3/uL 130-400 Automated blood platelet mean volume measurement 9.1 [foz_us] 7.4-10.4 Comprehensive metabolic panel - 04/22/19 05:00 Serum or plasma sodium measurement (moles/volume) 139 mmol/L 135-145 Serum or plasma potassium measurement (moles/volume) 3.4 mmol/L 3.6-5.0 Serum or plasma chloride measurement (moles/volume) 101 mmol/L 98-107 Carbon dioxide 28 mmol/L 21-32 Serum or plasma anion gap determination (moles/volume) 10 mmol/L 5-14 Serum or plasma urea nitrogen measurement (mass/volume) 5 mg/dL 7-18 Serum or plasma creatinine measurement (mass/volume) 0.61 mg/dL 0.60-1.30 Serum or plasma urea nitrogen/creatinine mass ratio 8 NRG Serum or plasma creatinine measurement with calculation of estimated glomerular filtration rate > NRG Serum or plasma glucose measurement (mass/volume) 97 mg/dL 70-105 Serum or plasma calcium measurement (mass/volume) 9.2 mg/dL 8.5-10.1 Serum or plasma total bilirubin measurement (mass/volume) 0.4 mg/dL 0.1-1.0 Serum or plasma alkaline phosphatase measurement (enzymatic activity/volume) 90 U/L 40-136 Serum or plasma aspartate aminotransferase measurement (enzymatic activity/volume) 15 U/L 5-34 Serum or plasma alanine aminotransferase measurement (enzymatic activity/volume) 18 U/L 0-55 Serum or plasma protein measurement (mass/volume) 6.2 g/dL 6.4-8.2 Serum or plasma albumin measurement (mass/volume) 3.5 g/dL 3.2-4.5 CALCIUM CORRECTED 9.6 mg/dL 8.5-10.1 Encounters ACCT No. Visit Date/Time Discharge Status Pt. 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;S/P LAMINECTOMY SPINAL CORD [id number] 04/15/2019 06:01:00 04/15/2019 12:05:00 DIS Outpatient MEHUL MIGUEL MD [facility] SDC [place]UM[place] [id number] 04/11/2019 05:33:00 04/11/2019 11:40:00 DIS Outpatient MEHUL MIGUEL MD [facility] PREOP [place] [id number] 11/30/2018 19:01:00 11/30/2018 22:18:00 DIS Emergency HITESH LY MD [facility] ER PASSED OUT/DIZZINESS [id number] 11/26/2018 08:31:00 11/26/2018 23:59:59 CLS Outpatient LUCIA BEASLEY APRN [facility] RAD SCREENING [id number] 11/03/2018 10:32:00 11/03/2018 11:08:00 DIS Emergency ELSA HARRISON, ROSLYN Prasad [facility] ER FACIAL NUMBNESS AND DROOPING [id number] 11/02/2018 07:36:00 11/02/2018 23:59:59 CLS Emergency ROSLYN HUNTER MD [facility] ER FACIAL DROOPING/NUMBNESS [id number] 08/08/2018 11:18:00 08/08/2018 23:59:59 CLS Outpatient BALDEMAR MONAHAN [facility] RAD HTN [id number] 06/26/2018 12:14:00 06/26/2018 23:59:59 CLS Outpatient FILIPE CUEVAS MD [facility] CARD ELEVATED PARATHYROID HORMONE [id number] 05/10/2018 09:30:00 05/10/2018 23:59:59 CLS Outpatient LILI ROACH [facility] RAD OSTEOPOROSIS [id number] 04/30/2018 09:37:00 04/30/2018 23:59:59 CLS Outpatient MEHUL MIGUEL MD [facility] RAD CERVICAL, THORACIC PAIN [id number] 01/24/2018 16:45:00 01/24/2018 23:59:59 CLS Preadmit BAO CASTELLON APRN [facility] RT SOB,ASTHMA [id number] 08/18/2017 10:35:00 08/18/2017 23:59:59 CLS Outpatient HERMINIO CORTES PODOPEDIATRICIAN [facility] RAD SCREENING [id number] 07/24/2017 09:08:00 07/24/2017 23:59:59 CLS Outpatient FILIPE CUEVAS MD [facility] RAD CHRONIC LOW BACK PAIN [id number] 12/22/2016 07:30:00 12/22/2016 23:59:59 CLS Outpatient NICK HARRISON FACC, BASSEM GILLIAM CCDS [facility] CARD SOB,CLAUDICATION,COPD [id number] 12/20/2016 07:33:00 12/20/2016 23:59:59 CLS Outpatient NICK HARRISON FACBASSEM FACP CCDS [facility] CARD SOB,CLAUDICATION,COPD [id number] 04/01/2016 11:53:00 04/01/2016 12:59:00 DIS Emergency ALEX ALLEN PLC ENGINEER [facility] ER NOSE BLEED [id number] 03/15/2016 08:04:00 03/15/2016 10:37:00 DIS Emergency DARRELL ASCENCIO DO [facility] ER CHEST/DARLEEN SHOULDER PAIN [id number] 09/22/2015 15:03:00 09/22/2015 16:25:00 DIS Emergency TRINIDAD CARRASCO MD [facility] ER NOSE BLEED [id number] 04/28/2015 09:01:00 04/28/2015 23:59:59 CLS Outpatient REBEKAH LARA APRN [facility] RAD SCREENING [id number] 01/14/2015 00:13:00 01/14/2015 23:59:59 CLS Preadmit FILIPE CUEVAS MD [facility] LAB COUGH, COPD [id number] 10/20/2014 08:12:00 01/13/2015 00:01:00 DIS Outpatient FILIPE CUEVAS MD [facility] LAB COUGH, COPD [id number] 05/10/2013 09:59:00 05/23/2013 13:31:00 DIS Outpatient ALANNA LION MD [facility] REHAB LEFT SHOULDER PAIN [id number] 05/10/2013 21:15:00 05/11/2013 06:50:00 DIS Outpatient GUS SILVA [facility] SLEEP SNORING,IVETTE [id number] 04/03/2013 13:01:00 04/03/2013 23:59:59 CLS Outpatient FILIPE CUEVAS MD [facility] RT ASTHMA,DYSPNEA [id number] 03/18/2013 11:05:00 03/18/2013 23:59:59 CLS Outpatient NICK HARRISON FACC, BASSEM GILLIAM CCDS [facility] CARD CHEST DISCOMFORT,HX MVP [id number] 05/09/2012 12:17:00 Document Registration [id number] 01/19/2011 21:33:00 Document Registration [id number] 12/23/2010 10:30:00 Document Registration [id number] 12/07/2010 14:19:00 Document Registration [id number] 10/14/2010 09:00:00 Document Registration [id number] 04/11/2010 08:16:00 Document Registration [id number] 08/18/2009 09:17:00 Document Registration [id number] 07/21/2009 08:57:00 Document Registration
== END 2019-04-22 13:30 | DRG 28 ==
LOC: EDUNIT# 20:36 → ER 20:37 → ICU 20:38 → UNDOADMOB 23:00 → ICU 23:00 → 4TH 04-16 22:18 → INTOOBSV 04-17 11:52 → OBSVTOIN 04-17 11:52 → 4TH 04-19 01:12 → UNDODISIN 04-22 13:30
PROVIDERS: ADMIT Orthopaedic Surgery Orthopaedic Surgery of the Spine; ATTEND Orthopaedic Surgery Orthopaedic Surgery of the Spine
PROC: 00CU0ZZ Extirpation of Matter from Spinal Canal, Open Approach (ICD-10-PCS; 2019-04-16)
PROC: 00WV0MZ Revision of Neurostimulator Lead in Spinal Cord, Open Approach (ICD-10-PCS; principal; 2019-04-16 16:21)
DX: T85.840A Pain due to nervous system prosthetic devices, implants and grafts, initial encounter (principal); G97.61 Postprocedural hematoma of a nervous system organ or structure following a nervous system procedure; I21.A1 Myocardial infarction type 2; R00.0 Tachycardia, unspecified; R00.2 Palpitations; I95.9 Hypotension, unspecified; K59.01 Slow transit constipation; J44.9 Chronic obstructive pulmonary disease, unspecified; J45.20 Mild intermittent asthma, uncomplicated; F41.9 Anxiety disorder, unspecified; I34.1 Nonrheumatic mitral (valve) prolapse; I10 Essential (primary) hypertension; N20.0 Calculus of kidney; K57.90 Diverticulosis of intestine, part unspecified, without perforation or abscess without bleeding; K76.89 Other specified diseases of liver; M47.9 Spondylosis, unspecified; E78.1 Pure hyperglyceridemia; E87.6 Hypokalemia; G47.30 Sleep apnea, unspecified; M79.89 Other specified soft tissue disorders; K21.9 Gastro-esophageal reflux disease without esophagitis
CPT/HCPCS: 36415; 72128; 74176; 80048; 80053; 81000; 82150; 83605; 83690; 83880; 84443; 84484; 85007; 85025; 85027; 87081; 93005

== ENCOUNTER → 2020-12-29 | Outpatient (CLI) | payer MEDICARE, BC ==
[~2020-12-29] MED LIST changes: +AMLO-250 PO; -AMLO5TAB9 PO; +BUTA-235 PO; -BUTA1TAB9 PO; +FOLI0.4T6 PO; -GEMF600T8 PO; +GEMF600T88 PO; +METH150T PO; -MONT10TA24 PO; +MONT10TA32 PO; +MORP-68 PO; +POTA10TA6 PO; +PYRI100T10 PO; -PYRI100T2 PO; -RANI-515 PO; +RANI-609 PO; +SENN-20 PO; -VALA1000 PO; +VALA10007 PO
--- NOTE | 2020-12-29 12:30 | Diagnostic Imaging Report ---
INDICATION: Routine screening. Comparison is made with prior mammogram from 11/26/2018 and 08/18/2017. 2-D and 3-D bilateral screening mammography was performed with CAD. Both breasts are heterogeneously dense, limiting the sensitivity of mammography. No mass or malignant appearing microcalcifications are seen. Axillae are unremarkable. IMPRESSION: BI-RADS Category 1 No mammographic features suspicious for malignancy are identified. ACR BI-RADS Category 1: Negative. Result letter will be mailed to the patient. Note: At least 10% of breast cancer is not imaged by mammography. Dictated by: Dictated on workstation # [id number]
== END ==
LOC: RAD 08:49
PROVIDERS: ATTEND Family Medicine
DX: Z12.31 Encounter for screening mammogram for malignant neoplasm of breast (principal)
CPT/HCPCS: 77063; 77067

== ENCOUNTER → 2021-09-28 | Outpatient (CLI) | payer MEDICARE, BC ==
[~2021-09-28] MED LIST changes: -CYAN50008 PO; +CYAN50009 PO; +MONT-40 PO; -MONT10TA32 PO; +POTA-160 PO; -POTA10TA6 PO; -POTA99TA21 PO; +POTA99TA26 PO
--- NOTE | 2021-09-28 14:29 | Diagnostic Imaging Report ---
INDICATION: Postmenopausal screening COMPARISON: 05/17/2018 FINDINGS: AP Spine L1-L4: [BMD (g/cm2): 0.908] [T-Score: -2.4] [Z-Score: -0.9] [BMD Previous: 1.064] [BMD % Change: -14.7] LT Hip Neck: [BMD (g/cm2): 0.771] [T-Score: -1.9] [Z-Score: 0.2] LT Hip Total: [BMD (g/cm2):0.907] [T-Score:-0.8] [Z-Score: 1.1] [BMD Previous: 0.951] [BMD % Change: -4.6] RT Hip Neck: [BMD (g/cm2):0.740] [T-Score:-2.1] [Z-Score:-0.1] RT Hip Total: [BMD (g/cm2):0.818] [T-score:-1.5] [Z-Score:0.4] [BMD Previous:0.830] [BMD % Change:-1.4] *Indicates significant change from prior examination based on 95% confidence level. World Health Organization criteria for BMD interpretation classify patients as Normal (T-score at or above -1.0), Osteopenic (T-score between -1.0 and -2.5) or Osteoporotic (T-score at or below -2.5). LIMITATIONS AND MODIFICATION: None. FRACTURE RISK (FRAX SCORE): The ten year probability of (%): Major Osteoporotic Fracture: [16.2] Hip Fracture: [5.2] IMPRESSION: 1. Osteopenia (Low bone mass). 2. Bone mineral density has decreased by a statistically significant amount, as detailed above. 3. See below National Osteoporosis Foundation guidelines on when to potentially initiate pharmacologic therapy. Based on the National Osteoporosis Foundation Guidelines, pharmacologic treatment should be initiated in any of the following, unless clinical conditions suggest otherwise: * Any patient with prior fragility fracture of the hip or vertebrae. A spine fracture indicates 5X risk for subsequent spine fracture and 2X risk for subsequent hip fracture. * Osteoporosis (T-score <-2.5). * Postmenopausal women and men age 50 and older with low bone mass/osteopenia (T-score between -1.0 and -2.5) by DXA and 10-year major osteoporotic fracture greater than 20% or a 10-year probability of hip fracture greater than 3%. These fracture risks are supplied above in the FRAX score, if applicable. * Clinician judgement and/or patient preferences may indicate treatment for people with 10-year fracture probabilities above or below these levels. Dictated by: Dictated on workstation # [id number]
== END ==
LOC: RAD 11:11
PROVIDERS: ATTEND Nurse Practitioner Family
DX: Z13.820 Encounter for screening for osteoporosis (principal); M85.80 Other specified disorders of bone density and structure, unspecified site; Z78.0 Asymptomatic menopausal state
CPT/HCPCS: 77080

== ENCOUNTER → 2022-02-15 | Outpatient (CLI) | payer MEDICARE, BC | LOC: CARD 12:00 | PROVIDERS: ATTEND Nurse Practitioner Family | DX: I51.7 Cardiomegaly (principal); I35.8 Other nonrheumatic aortic valve disorders | CPT/HCPCS: 93225; 93226; 93306 ==

== ENCOUNTER → 2022-02-25 | Outpatient (CLI) | payer MEDICARE, BC ==
--- NOTE | 2022-02-25 13:59 | Diagnostic Imaging Report ---
Indication: Bilateral digital 3-D screening with CAD. CAD is utilized. The current study was also evaluated with a Computer Aided Detection (CAD) system. COMPARISON: 12/2020, 11/2018, 08/2017 FINDINGS: Density 2 There is no breast mass, spiculated lesion, architectural distortion, suspicious calcifications or evidence for malignancy. IMPRESSION: BI-RADS Category 1 ACR BI-RADS Category 1: Negative. Result letter will be mailed to the patient. Note: At least 10% of breast cancer is not imaged by mammography. Dictated by: Dictated on workstation # [id number]
== END ==
LOC: RAD 11:30
PROVIDERS: ATTEND Family Medicine
DX: Z12.31 Encounter for screening mammogram for malignant neoplasm of breast (principal)
CPT/HCPCS: 77063; 77067

== ENCOUNTER 2022-03-17 19:15 | Emergency (ER) | payer MEDICARE, BC ==
[~2022-03-17] VITALS: Ht 157 cm; Wt 83.0 kg
[2022-03-17] MEDS ORDERED: CEFU500T63 (19:28)
[2022-03-17] MEDS ORDERED: METR-145 (19:28)
[2022-03-17] MEDS ORDERED: TETANUS,DIPTH,PERTUSS P/F (BOOSTRIX) 0.5 ML VIAL IM ONE ×2 (19:45→19:47)
[2022-03-17] MEDS ORDERED: VANCOMYCIN INJECTION 1,000 MG in NS (IVPB) 250 ML IV ONE (19:45)
--- NOTE | 2022-03-17 19:45 | ED General ---
General Chief Complaint: Bite-Animal/Human/Insect Stated Complaint: SWOLLEN HAND Nursing Triage Note: right hand swelling from cat bite approx. 0300 03/16/22. right arm warm with streaking up to axilla. unknown vaccination status of cat. Source of Information: Patient Exam Limitations: No Limitations History of Present Illness Date Seen by Provider: Mar 17, 2022 Time Seen by Provider: 19:42 Initial Comments Patient is a 81-year-old female presents ED with redness and swelling to the right arm. She states yesterday she was bitten by a cat. She has been feeding this For the past week. Attempted to push the cat in a cage when it bit her right dorsum hand. This resulted in a small bite vee with localized redness. Went to her primary care physician today was prescribed cefuroxime mean and Flagyl. She is taken 1 dose worth. Started noting redness moving up the right arm. Had a temperature 101. She denies fever, chills, nausea vomiting, d iarrhea. Not up-to-date on her tetanus Allergies and Home Medications Allergies Coded Allergies: Horse/Equine Containing Products (Verified Allergy, Severe, SWELLING, 04/15/19) clopidogrel bisulfate (Unverified Allergy, Severe, SEVERE BLEEDING, 04/15/19) tuberculin, purified protein deriva (Verified Allergy, Severe, POSTITIVE REACTION AND TOLD TO NEVER TAKE IT AGAIN, 04/15/19) clindamycin (Verified Allergy, Intermediate, DIARRHEA, 04/15/19) Penicillins (Verified Allergy, Mild, HIVES, 04/15/19) CAN TAKE KEFLEX Sulfa (Sulfonamide Antibiotics) (Verified Allergy, Mild, RASH, 04/15/19) Patient Home Medication List Home Medication List Reviewed: Yes Albuterol Sulfate (Proair Hfa) 1 Puff Puff, 2 PUFF IH Q4H PRN for SHORTNESS OF BREATH, (Reported) Entered as Reported by: CLARE CISNEROS on 04/11/19 1112 Amlodipine Besylate (Amlodipine Besylate) 5 Mg Tablet, 2.5 MG PO BID, (Reported) Entered as Reported by: CLARE CISNEROS on 04/11/19 1102 Ascorbic Acid (Ascorbic Acid) 500 Mg Tablet, 500 MG PO DAILY, (Reported) Entered as Reported by: CLARE CISNEROS on 04/11/19 111 Aspirin (Aspirin) 81 Mg Tab.chew, 81 MG PO DAILY, (Reported) Entered as Reported by: CLARE CISNEROS on 04/11/19 111 Baclofen (Baclofen) 20 Mg Tablet, 5 MG PO TID PRN for SPASMS, (Reported) Entered as Reported by: CLARE CISNEROS on 04/11/19 110 Beta-Carotene (Beta Carotene) 10,000 Unit Capsule, 10,000 UNIT PO DAILY, (Reported) Entered as Reported by: CLARE CISNEROS on 04/11/19 111 Butalb/Acetaminophen/Caffeine (Egxcye-Dnixrppw-Gcrk 50-325-40) 1 Each Tablet, 1 EACH PO Q6H PRN for HEADACHE Prescribed by: FILIPE ROSENBERG on 04/22/19 0916 Cefuroxime Axetil (Cefuroxime) 500 Mg Tablet, (Reported) Entered as Reported by: LILI JERONIMO on 03/17/221927 Last Action: New Order Celecoxib (Celecoxib) 200 Mg Capsule, 200 MG PO DAILY, (Reported) Entered as Reported by: CLARE CISNEROS on 04/11/19 111 Cholecalciferol (Vitamin D3) (Vitamin D3) 2,000 Unit Tablet, 2,000 UNIT PO DAILY, (Reported) Entered as Reported by: CLARE CISNEROS on 04/11/19 110 Cyanocobalamin (Vitamin B-12) (Vitamin B12) 5,000 Mcg Tab.rapdis, 5,000 MCG PO DAILY, (Reported) Entered as Reported by: CLARE CISNEROS on 04/11/19 110 Folic Acid (Folic Acid) 0.4 Mg Tablet, 0.4 MG PO DAILY, (Reported) Entered as Reported by: CLARE CISNEROS on 04/11/19 111 Gabapentin (Gabapentin) 300 Mg Capsule, 300 MG PO TID, (Reported) Entered as Reported by: CLARE CISNEROS on 04/11/19 110 Gemfibrozil (Gemfibrozil) 600 Mg Tablet, 600 MG PO BID, (Reported) Entered as Reported by: CLARE CISNEROS on 04/11/19 110 L.acidoph & Paracasei,B.lactis (Probiotic) 1 Each Capsule, 1 EACH PO DAILY, (Reported) Entered as Reported by: CLARE CISNEROS on 04/11/19 110 Loratadine (Loratadine) 10 Mg Tablet, 10 MG PO DAILY, (Reported) Entered as Reported by: CLARE CISNEROS on 04/11/19 110 Melatonin/Pyridoxine HCl (B6) (Melatonin 3 mg Tablet) 1 Each Tablet, 1 EACH PO HS, (Reported) Entered as Reported by: CLINT SALDIVAR on 04/15/19 0648 Methylnaltrexone [place] (Relistor) 150 Mg Tablet, 150 MG PO Q48H Prescribed by: FILIPE ROSENBERG on 04/22/19 0916 Metronidazole (Metronidazole) 500 Mg Tablet, (Reported) Entered as Reported by: LILI JERONIMO on 03/17/221927 Last Action: New Order Montelukast Sodium (Montelukast Sodium) 10 Mg Tablet, 10 MG PO DAILY, (Reported) Entered as Reported by: CLARE CISNEROS on 04/11/19 111 Morphine Sulfate (Morphine Sulfate ER) 15 Mg Tablet.er, 15 MG PO Q12HR Prescribed by: FILIPE ROSENBERG on 04/22/19 09 Multivitamin (Multivitamins) 1 Each Capsule, PO DAILY, (Reported) Entered as Reported by: CLARE CISNEROS on 04/11/19 111 Paroxetine HCl (Paxil) 20 Mg Tablet, 10 MG PO DAILY, (Reported) Entered as Reported by: CLARE CISNEROS on 04/11/19 110 Pentazocine/Naloxone (Pentazocine-Naloxone Tablet) 50 Mg Tab, 50 MG PO Q4H PRN for PAIN-BREAKTHROUGH Prescribed by: MEHUL MIGUEL on 04/15/19 0856 Potassium Chloride (Klor-Con 10) 10 Meq Tablet.er, 10 MEQ PO TIDPC Prescribed by: FILIPE ROSENBERG on 04/22/19 09 Pyridoxine HCl (Vitamin B-6) 100 Mg Tablet, 100 MG PO DAILY, (Reported) Entered as Reported by: CLARE CISNEROS on 04/11/19 110 Ranitidine HCl (Acid Buckle [place] (RANITIDINE)) 150 Mg Tablet, 150 MG PO DAILY, (Reported) Entered as Reported by: CLARE CISNEROS on 04/11/19 1102 Sennosides/Docusate Sodium (Senna-Time S Tablet) 1 Each Tablet, 1 EA PO BID Prescribed by: FILIPE ROSENBERG on 04/22/19 0916 Valacyclovir HCl (Valacyclovir) 1,000 Mg Tablet, 1,000 MG PO BID, (Reported) Entered as Reported by: CLARE CISNEROS on 04/11/19 1102 Vitamin E Acetate (Vitamin E) 400 Unit Capsule, 400 UNIT PO DAILY, (Reported) Entered as Reported by: CLARE CISNEROS on 04/11/19 111 Zinc Amino Acid Chelate (Zinc) 50 Mg Tablet, 50 MG PO DAILY, (Reported) Entered as Reported by: CLARE CISNEROS on 04/11/19 1112 Review of Systems Review of Systems Constitutional: No chills, No diaphoresis, No malaise, No weakness EENTM: No blurred vision, No double vision, No dental problems, No mouth pain, No mouth swelling Respiratory: No cough, No dyspnea on exertion Cardiovascular: No chest pain, No edema Gastrointestinal: No abdominal pain, No diarrhea, No nausea, No vomiting Musculoskeletal: muscle pain, muscle stiffness Skin: change in color, rash All Other Systems Reviewed Negative Unless Noted: Yes Past Ypdwepc-Ngzcve-Ybnbjc Hx Patient Social History Tobacco Use?: No Substance use?: No Alcohol Use?: No Pt feels they are or have been: No Seasonal Allergies Seasonal Allergies: Yes Past Medical History Surgery/Hospitalization HX: mercer, asthma, copd, mitral valve prolapse, htn, bells pasly, tia, renal stones, shingles, hysterectomy, appy, charli, r carpel tunnel, left knee scope, lumbar laminectomy, thoracic spinal stimulator, Surgeries: Yes Appendectomy, Gallbladder, Hysterectomy, Orthopedic Respiratory: Yes (CHRONIC COUGH) Asthma, COPD Cardiac: Yes (MITRAL VALVE PROLAPSE) Hypertension, Valvular Heart Disease Neurological: Yes (DUNN'S PALSY) Headaches /Migraines, TIA Reproductive Disorders: Yes (HX.FIBROIDS-HYSTERECTOMY) 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, 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 Sexually Transmitted Disease: No HIV/AIDS: No Genitourinary: Yes (KIDNEY STONES NOTED ON CT SCAN--PT HAS NEVER PASSED ONE) Kidney Stones Gastrointestinal: Yes (CARCINOID APPENDIX; S/P CHARLI) Gall Bladder Disease Musculoskeletal: Yes Degenerate Disk Disease, Chronic Back Pain Endocrine: No HEENT: Yes (READING GLASSES; NOSEBLEEDS) Loss of Vision: Denies Hearing Impairment: Denies Cancer: No Psychosocial: No Integumentary: Yes (SHINGLES) Blood Disorders: No Adverse Reaction/Blood Tranf: No (N/A) Family Medical History No Pertinent Family Hx Physical Exam Vital Signs Vital Signs - First Documented 03/17/22 19:22 Temp 36.8 Pulse 102 Resp 18 B/P (MAP) 153/81 (105) Pulse Ox 96 O2 Delivery Room Air Capillary Refill : Less Than 3 Seconds Height, Weight, BMI Height: 5'2.00" Weight: 184lbs. 3.0oz. 83.548702si; 33.00 BMI Method:Stated General Appearance: No Apparent Distress, WD/WN Eyes: Bilateral Eye Normal Inspection, Bilateral Eye PERRL, Bilateral Eye EOMI HEENT: PERRL/EOMI, TMs Normal, Normal ENT Inspection, Pharynx Normal Neck: Full Range of Motion, Normal Inspection, Non Tender Respiratory: Chest Non Tender, Lungs Clear, Normal Breath Sounds, No Accessory Muscle Use, No Respiratory Distress Cardiovascular: Regular Rate, Rhythm, No Edema, No Gallop, No JVD Gastrointestinal: Normal Bowel Sounds, No Organomegaly, No Pulsatile Mass, Non Tender, Soft Extremity: Other (Mild puncture wound to right dorsum hand proximal thumb. Erythema streaking to the right axilla. Mild warmth without any fluctuant mass. Normal active range of motion of the digits.) Skin: Other (Small puncture to right dorsum hand between the first and second digit. No function mass. Erythematous streaking) Focused Exam Lactate Level 03/17/22 20:05: Lactic Acid Level 1.39 Lactic Acid Level Laboratory Tests Test 03/17/22 20:05 Lactic Acid Level 1.39 MMOL/L (0.50-2.00) Progress/Results/Core Measures Suspected Sepsis SIRS Temperature: Pulse: 102 Respiratory Rate: 18 Laboratory Tests 03/17/22 20:05: White Blood Count 17.2H Blood Pressure 153 /81 Mean: 105 03/17/22 20:05: Lactic Acid Level 1.39 Laboratory Tests 03/17/22 20:05: Creatinine 0.81, Platelet Count 317, Total Bilirubin 0.4 Results/Orders Lab Results Laboratory Tests Test 03/17/22 20:05 Range/Units White Blood Count 17.2 H 4.3-11.0 10^3/uL Red Blood Count 4.04 3.80-5.11 10^6/uL Hemoglobin 12.9 11.5-16.0 g/dL Hematocrit 37 35-52 % Mean Corpuscular Volume 93 80-99 fL Mean Corpuscular Hemoglobin 32 25-34 pg Mean Corpuscular Hemoglobin Concent 35 32-36 g/dL Red Cell Distribution Width 11.7 10.0-14.5 % Platelet Count 317 130-400 10^3/uL Mean Platelet Volume 9.6 9.0-12.2 fL Immature Granulocyte % (Auto) 0 % Neutrophils (%) (Auto) 76 H 42-75 % Lymphocytes (%) (Auto) 14 12-44 % Monocytes (%) (Auto) 9 0-12 % Eosinophils (%) (Auto) 0 0-10 % Basophils (%) (Auto) 0 0-10 % Neutrophils # (Auto) 13.1 H 1.8-7.8 10^3/uL Lymphocytes # (Auto) 2.4 1.0-4.0 10^3/uL Monocytes # (Auto) 1.5 H 0.0-1.0 10^3/uL Eosinophils # (Auto) 0.1 0.0-0.3 10^3/uL Basophils # (Auto) 0.1 0.0-0.1 10^3/uL Immature Granulocyte # (Auto) 0.1 0.0-0.1 10^3/uL Neutrophils % (Manual) 70 % Lymphocytes % (Manual) 19 % Monocytes % (Manual) 10 % Eosinophils % (Manual) 1 % Blood Morphology Comment NORMAL Sodium Level 136 135-145 MMOL/L Potassium Level 3.8 3.6-5.0 MMOL/L Chloride Level 103 98-107 MMOL/L Carbon Dioxide Level 20 L 21-32 MMOL/L Anion Gap 13 5-14 MMOL/L Blood Urea Nitrogen 15 7-18 MG/DL Creatinine 0.81 0.60-1.30 MG/DL Estimat Glomerular Filtration Rate 72 BUN/Creatinine Ratio 19 Glucose Level 129 H 70-105 MG/DL Lactic Acid Level 1.39 0.50-2.00 MMOL/L Calcium Level 9.1 8.5-10.1 MG/DL Corrected Calcium 9.0 8.5-10.1 MG/DL Total Bilirubin 0.4 0.1-1.0 MG/DL Aspartate Amino Transf (AST/SGOT) 20 5-34 U/L Alanine Aminotransferase (ALT/SGPT) 20 0-55 U/L Alkaline Phosphatase 107 40-136 U/L C-Reactive Protein High Sensitivity 2.76 H 0.00-0.50 MG/DL Total Protein 7.0 6.4-8.2 GM/DL Albumin 4.1 3.2-4.5 GM/DL My Orders Orders - MILO GOODSON Cbc With Automated Diff (03/17/22 19:41) Comprehensive Metabolic Panel (03/17/22 19:41) Blood Culture (03/17/22 19:41) Lactic Acid Analyzer (03/17/22 19:41) Hs C Reactive Protein (03/17/22 19:41) Vancomycin Injection (Vancomycin Injecti (03/17/22 19:45) Dipht,Pertuss(Acell),Tet Adult (Boostrix (03/17/22 19:45) Manual Differential (03/17/22 20:05) Dipht,Pertuss(Acell),Tet Adult (Boostrix (03/17/22 19:47) Medications Given in ED Current Medications Medications Dose Ordered Sig/Susan Route Start Time Stop Time Status Last Admin Dose Admin Diphtheria/ Tetanus/Acell Pertussis 0.5 ml ONCE ONCE IM 03/17/22 19:45 03/17/22 21:03 DC 03/17/22 20:00 0.5 ML Vancomycin HCl 1000 mg/Sodium Chloride 250 ml @ 250 mls/hr ONCE ONCE IV 03/17/22 19:45 03/17/22 20:44 DC 03/17/22 19:59 250 MLS/HR Vital Signs/I&O 03/17/22 03/17/22 19:22 21:00 Temp 36.8 36.9 Pulse 102 89 Resp 18 18 B/P (MAP) 153/81 (105) 134/76 Pulse Ox 96 95 O2 Delivery Room Air Room Air Capillary Refill : Less Than 3 Seconds Blood Pressure Mean: 105 Departure Communication (PCP) Patient has a small puncture wound to the right dorsum hand with erythematous streaking to the right axilla. Fever at home. Afebrile here. Did take Tylenol. Slightly tachycardic with elevated white blood count of 17 blood cultures was ordered. Normal lactic acid. Was started on vancomycin in the. Patient does have several allergies to antibiotics. Patient was placed on Flagyl and cefuroxime today and has only taken 1 dose. Improvement of heart rate after fluids. Afebrile here. Patient states her headache and chills has improved. Discussed with patient she needs to continue taking her oral antibiotics which would likely help with her current infection. Provided the vancomycin here and recommend continue with oral antibiotics at home. Recommend taking tonight's dose. Discussed anti-inflammatories for fever. Discussed patient with Dr. Rosenberg who felt like patient is okay to go home which I agree. If she has no improvement with oral antibiotics over the next few days may need IV inpatient antibiotics. Recommend following up with PCP in the next 2 to 3 days. if any worsening symptoms such as continued fever, vomiting, chills, worsening of cellulitic infection to return back to ED. Impression Primary Impression: Cellulitis Disposition: 01 HOME, SELF-CARE Condition: Stable Departure-Patient Inst. Decision time for Depature: 20:54 Referrals: FILIPE ROSENBERG MD (PCP/Family) Primary Care Physician Patient Instructions: Cellulitis (Skin Infection), Adult ED Add. Discharge Instructions: Continue with your medication as prescribed this evening. Follow-up with Dr. Rosenberg for further evaluation. If any worsening symptoms return back to ED All discharge instructions reviewed with patient and/or family. Voiced understanding. MILO GOODSON Mar 17, 2022 19:45
[2022-03-17 20:10] LABS: BASOPHILS # (AUTO) 0.1 10^3/uL (0.0-0.1); BASOPHILS % (AUTO) 0 % (0-10); EOSINOPHILS # (AUTO) 0.1 10^3/uL (0.0-0.3); EOSINOPHILS % (AUTO) 0 % (0-10); HEMATOCRIT 37 % (35-52); HEMOGLOBIN 12.9 g/dL (11.5-16.0); LYMPHOCYTES # (AUTO) 2.4 10^3/uL (1.0-4.0); LYMPHOCYTES % (AUTO) 14 % (12-44); MEAN CORPUSCULAR HEMOGLOBIN 32 pg (25-34); MEAN CORPUSCULAR HGB CONC 35 g/dL (32-36); MEAN CORPUSCULAR VOLUME 93 fL (80-99); MEAN PLATELET VOLUME 9.6 fL (9.0-12.2); MONOCYTES # (AUTO) 1.5 10^3/uL (0.0-1.0); MONOCYTES % (AUTO) 9 % (0-12); NEUTROPHILS # (AUTO) 13.1 10^3/uL (1.8-7.8); NEUTROPHILS % (AUTO) 76 % (42-75); PLATELET COUNT 317 10^3/uL (130-400); WHITE BLOOD COUNT 17.2 10^3/uL (4.3-11.0)
[2022-03-17 20:26] LABS: ALBUMIN 4.1 GM/DL (3.2-4.5); POTASSIUM 3.8 MMOL/L (3.6-5.0)
[2022-03-17 20:27] LABS: CALCIUM 9.1 MG/DL (8.5-10.1)
[2022-03-17 20:30] LABS: BILIRUBIN,TOTAL 0.4 MG/DL (0.1-1.0)
[2022-03-17 20:32] LABS: CREATININE SERUM 0.81 MG/DL (0.60-1.30)
[2022-03-17 20:41] LABS: EOSINOPHILS % (MANUAL) 1 %; LYMPHOCYTES % (MANUAL) 19 %; MONOCYTES % (MANUAL) 10 %; NEUTROPHILS % (MANUAL) 70 %; RBC MORPH NORMAL
[2022-03-17 21:00] VITALS: BP 134/76
== END 2022-03-17 21:02 | disposition home or self-care (01) ==
LOC: EDUNIT# 19:15 → ER 19:18
DX: L03.113 Cellulitis of right upper limb (principal); S61.031A Puncture wound without foreign body of right thumb without damage to nail, initial encounter; D72.829 Elevated white blood cell count, unspecified; R00.0 Tachycardia, unspecified; Z88.0 Allergy status to penicillin; Z88.1 Allergy status to other antibiotic agents; Z88.2 Allergy status to sulfonamides; Z23 Encounter for immunization; W55.01XA Bitten by cat, initial encounter
CPT/HCPCS: 36415; 80053; 83605; 85007; 85027; 86141; 87040; 90715

== ENCOUNTER → 2023-02-01 | Outpatient (CLI) | payer MEDICARE, BC ==
[~2023-02-01] MED LIST changes: +ALBU8.5H6 IH; +CEFU500T63; +METR-145; +PARO-124 PO; -PARO-49 PO; -RT-ALBUINH IH
--- NOTE | 2023-02-01 11:44 | Diagnostic Imaging Report ---
INDICATION: Fall with right-sided chest pain. Time of Exam: 8:36 AM Comparison is made with prior chest from 11/30/2018. Spinal stimulator leads in the mid thoracic spine are noted. Heart size normal. Lungs are clear. No infiltrates are seen. There is no effusion or pneumothorax identified. Bony structures are grossly unremarkable. IMPRESSION: No acute cardiopulmonary process is detected. Dictated by: Dictated on workstation # [id number]
== END ==
LOC: RAD 08:14
PROVIDERS: ATTEND Family Medicine
DX: R07.89 Other chest pain (principal); W19.XXXA Unspecified fall, initial encounter
CPT/HCPCS: 71046